=== PATIENT | female | born 1955 | race Caucasian/White ===

== ENCOUNTER → 2017-12-02 12:09 | Outpatient (CLI) | payer MEDICARE, SELFPAY ==
[2017-12-02 12:38] LABS: Abs Immature Grans 0.01 k/cumm (0.0-0.09); Absolute Basophil Count 0.03 k/cumm (0.0-0.2); Absolute Eosinophil Count 0.17 k/cumm (0.0-0.7); Absolute Lymphocyte Count 1.95 k/cumm (1.2-3.4); Absolute Monocyte Count 0.43 k/cumm (0.11-0.7); Absolute Neutrophil Count 4.89 k/cumm (1.2-6.7); Basophils % 0.4; Eosinophils % 2.3; HCT 42.9 % (36.0-46.0); HGB 14.4 g/dL (12.0-15.5); Immature Grans % 0.1; Lymphocytes % 26.1; Mean Corp. HGB Concentration 33.6 g/dL (32.0-36.0); Mean Corpuscular Hemoglobin 32.1 pg (27.0-33.0); Mean Corpuscular Volume 95.5 fL (80-95); Monocytes % 5.7; Neutrophils % 65.4; Platelet Count 232 x1000/uL (130-400); RBC 4.49 m/cumm (4.00-5.20); RBC Distribution Width 12.5 % (11.7-14.6); White Blood Cell Count 7.48 k/cumm (4.4-10.8)
[2017-12-02 12:51] LABS: Hemoglobin A1C 5.4 % (4.5-6.2)
[2017-12-02 13:27] LABS: ALT 28 U/L (12-78); AST 15 U/L (15-37); Albumin 3.9 g/dL (3.4-5.0); Alkaline Phosphatase 120 U/L (46-116); Anion Gap 10.5 mmol/L (3-11); BUN 23 mg/dL (7-18); Bilirubin, Total 0.3 mg/dL (0.2-1.0); CO2 26.5 mmol/L (21.0-32.0); CREATININE 0.92 mg/dL (0.55-1.02); Calcium 9.4 mg/dL (8.5-10.1); Chloride 106 mmol/L (98-107); Glucose 92 mg/dL (70-100); Potassium 4.4 mmol/L (3.5-5.1); Sodium 143 mmol/L (136-145); TSH 2.42 uIU/mL (0.358-3.74); Total Protein 6.7 g/dL (6.4-8.2)
[2017-12-05 11:22] LABS: Lyme Ab w Rflx to Lyme Confirm Negative
== END ==
PROVIDERS: PCP Family Medicine; Visit Provider Nurse Practitioner Psychiatric/Mental Health
DX: F25.0 Schizoaffective disorder, bipolar type (principal); Z79.899 Other long term (current) drug therapy
CPT/HCPCS: 36415; 80053; 83036; 84443; 85025; 86618

== ENCOUNTER → 2017-12-05 12:23 | Outpatient (REF) | payer MEDICARE, SELFPAY ==
[2017-12-06 11:13] LABS: Campylobacter PCR SEE COMMENTS; Salmonella PCR SEE COMMENTS; Shiga Toxin PCR SEE COMMENTS; Shigella/Enteroinvasive Ecoli SEE COMMENTS
== END ==
LOC: LBN 12:23
PROVIDERS: PCP Family Medicine; Visit Provider Nurse Practitioner Psychiatric/Mental Health
DX: R19.5 Other fecal abnormalities (principal)
CPT/HCPCS: 87505

== ENCOUNTER 2017-12-30 11:48 | Outpatient (CLI) | payer MEDICARE, SELFPAY ==
[2017-12-30 12:23] LABS: Abs Immature Grans 0.01 k/cumm (0.0-0.09); Absolute Basophil Count 0.04 k/cumm (0.0-0.2); Absolute Eosinophil Count 0.26 k/cumm (0.0-0.7); Absolute Lymphocyte Count 1.84 k/cumm (1.2-3.4); Absolute Monocyte Count 0.63 k/cumm (0.11-0.7); Absolute Neutrophil Count 5.35 k/cumm (1.2-6.7); Basophils % 0.5; Eosinophils % 3.2; HCT 42.2 % (36.0-46.0); HGB 13.8 g/dL (12.0-15.5); Immature Grans % 0.1; Lymphocytes % 22.6; Mean Corp. HGB Concentration 32.7 g/dL (32.0-36.0); Mean Corpuscular Hemoglobin 31.5 pg (27.0-33.0); Mean Corpuscular Volume 96.3 fL (80-95); Mean Platelet Volume 10.1 fL (8.0-11.0); Monocytes % 7.7; Neutrophils % 65.9; Platelet Count 226 x1000/uL (130-400); RBC 4.38 m/cumm (4.00-5.20); White Blood Cell Count 8.13 k/cumm (4.4-10.8)
== END 2017-12-30 12:08 ==
PROVIDERS: PCP Family Medicine; Visit Provider Nurse Practitioner Psychiatric/Mental Health
DX: F20.9 Schizophrenia, unspecified (principal); Z79.899 Other long term (current) drug therapy
CPT/HCPCS: 36415; 85025

== ENCOUNTER 2018-01-27 11:30 | Outpatient (CLI) | payer MEDICARE, SELFPAY ==
[2018-01-27 11:48] LABS: Abs Immature Grans 0.02 k/cumm (0.0-0.09); Absolute Basophil Count 0.04 k/cumm (0.0-0.2); Absolute Eosinophil Count 0.28 k/cumm (0.0-0.7); Absolute Lymphocyte Count 2.81 k/cumm (1.2-3.4); Absolute Monocyte Count 0.74 k/cumm (0.11-0.7); Absolute Neutrophil Count 6.11 k/cumm (1.2-6.7); Basophils % 0.4; Eosinophils % 2.8; HGB 14.3 g/dL (12.0-15.5); Immature Grans % 0.2; Lymphocytes % 28.1; Mean Corp. HGB Concentration 33.3 g/dL (32.0-36.0); Mean Corpuscular Hemoglobin 32.3 pg (27.0-33.0); Mean Corpuscular Volume 97.1 fL (80-95); Mean Platelet Volume 10.1 fL (8.0-11.0); Monocytes % 7.4; Neutrophils % 61.1; Platelet Count 227 x1000/uL (130-400); RBC 4.43 m/cumm (4.00-5.20)
== END 2018-01-27 11:50 ==
PROVIDERS: PCP Family Medicine; Referring Provider Nurse Practitioner Psychiatric/Mental Health; Visit Provider Family Medicine
DX: F20.9 Schizophrenia, unspecified (principal); Z79.899 Other long term (current) drug therapy
CPT/HCPCS: 36415; 85025

== ENCOUNTER 2018-02-22 00:49 | Outpatient (CLI) | payer MEDICARE, SELFPAY ==
--- NOTE | 2018-02-22 13:00 | DI.MAMMO_ITS ---
SYMPTOMS/DIAGNOSIS: SCREENING, Z12.31 MAMMOGRAMS: Mammograms were interpreted according to the usual protocol including computer analysis with CAD system, tomosynthesis and C view imaging. The breast tissue is of moderate radiodensity. When compared with previous images, there is a question regarding interval development of one or possibly two very small nodules in the right breast. Further assessment with mediolateral and craniocaudad compression spot films is suggested. SUMMARY: Category 0. Breast density category B. [facility] ASSESSMENT OF FINDINGS: Incomplete: Needs additional imaging evaluation. Category 0. Patient will receive a letter notifying them of these results. BI-RADS category B. There are scattered areas of fibroglandular density.
== END 2018-02-22 01:09 ==
PROVIDERS: PCP Family Medicine; Visit Provider Family Medicine
DX: Z12.31 Encounter for screening mammogram for malignant neoplasm of breast (principal); R92.8 Other abnormal and inconclusive findings on diagnostic imaging of breast
CPT/HCPCS: 77063; 77067

== ENCOUNTER 2018-02-24 11:46 | Outpatient (CLI) | payer MEDICARE, SELFPAY ==
[2018-02-24 12:42] LABS: Abs Immature Grans 0.01 k/cumm (0.0-0.09); Absolute Basophil Count 0.04 k/cumm (0.0-0.2); Absolute Eosinophil Count 0.17 k/cumm (0.0-0.7); Absolute Lymphocyte Count 1.74 k/cumm (1.2-3.4); Absolute Monocyte Count 0.39 k/cumm (0.11-0.7); Absolute Neutrophil Count 5.57 k/cumm (1.2-6.7); Basophils % 0.5; Eosinophils % 2.1; HCT 41.3 % (36.0-46.0); HGB 13.9 g/dL (12.0-15.5); Immature Grans % 0.1; Mean Corp. HGB Concentration 33.7 g/dL (32.0-36.0); Mean Corpuscular Hemoglobin 32.5 pg (27.0-33.0); Mean Corpuscular Volume 96.5 fL (80-95); Mean Platelet Volume 10.5 fL (8.0-11.0); Monocytes % 4.9; Neutrophils % 70.4; Platelet Count 228 x1000/uL (130-400); RBC 4.28 m/cumm (4.00-5.20); White Blood Cell Count 7.92 k/cumm (4.4-10.8)
[2018-02-27 17:06] LABS: Tissue Transglutaminase Ab IgA <1.2 U/mL; Tissue Transglutaminase Ab IgG 1.3 U/mL
== END 2018-02-24 12:06 ==
PROVIDERS: PCP Family Medicine; Visit Provider Nurse Practitioner Psychiatric/Mental Health
DX: R19.7 Diarrhea, unspecified (principal); F20.9 Schizophrenia, unspecified; Z79.899 Other long term (current) drug therapy
CPT/HCPCS: 36415; 83516; 85025

== ENCOUNTER 2018-03-01 01:12 | Outpatient (CLI) | payer MEDICARE, SELFPAY ==
--- NOTE | 2018-03-01 13:49 | DI.COMBO_ITS ---
SYMPTOM/DIAGNOSIS: F/U MAMMO, ? NODULE RT BREAST RIGHT BREAST ADDITIONAL VIEWS AND RIGHT BREAST ULTRASOUND: Additional images are interpreted according to the usual protocol including tomosynthesis and 2D imaging. Additional views of the right breast fail to show a persistent discrete mass. Right breast ultrasound was performed. No suspicious cystic or solid masses are seen sonographically. IMPRESSION: Breast density, Category B. No evidence for malignancy. Yearly mammography is recommended. Category 1. The findings were discussed with the patient on the date of the examination by Dr. Moore. [facility] ASSESSMENT OF FINDINGS: Negative. Category 1. Patient will receive a letter notifying them of these results. BI-RADS category B. There are scattered areas of fibroglandular density.
== END 2018-03-01 01:32 ==
PROVIDERS: PCP Family Medicine; Visit Provider Family Medicine
DX: Z12.31 Encounter for screening mammogram for malignant neoplasm of breast (principal); R92.8 Other abnormal and inconclusive findings on diagnostic imaging of breast
CPT/HCPCS: 76642; 77063; 77067

== ENCOUNTER 2018-03-24 11:30 | Outpatient (CLI) | payer MEDICARE, SELFPAY ==
[2018-03-24 12:18] LABS: Abs Immature Grans 0.01 k/cumm (0.0-0.09); Absolute Basophil Count 0.03 k/cumm (0.0-0.2); Absolute Eosinophil Count 0.24 k/cumm (0.0-0.7); Absolute Lymphocyte Count 1.96 k/cumm (1.2-3.4); Absolute Monocyte Count 0.65 k/cumm (0.11-0.7); Absolute Neutrophil Count 6.15 k/cumm (1.2-6.7); Basophils % 0.3; Eosinophils % 2.7; HCT 44.1 % (36.0-46.0); HGB 14.7 g/dL (12.0-15.5); Immature Grans % 0.1; Lymphocytes % 21.7; Mean Corp. HGB Concentration 33.3 g/dL (32.0-36.0); Mean Corpuscular Hemoglobin 32.2 pg (27.0-33.0); Mean Corpuscular Volume 96.5 fL (80-95); Mean Platelet Volume 10.4 fL (8.0-11.0); Monocytes % 7.2; Platelet Count 251 x1000/uL (130-400); RBC 4.57 m/cumm (4.00-5.20); RBC Distribution Width 12.9 % (11.7-14.6); White Blood Cell Count 9.04 k/cumm (4.4-10.8)
== END 2018-03-24 11:50 ==
PROVIDERS: PCP Family Medicine; Visit Provider Nurse Practitioner Psychiatric/Mental Health
DX: F20.9 Schizophrenia, unspecified (principal); Z79.899 Other long term (current) drug therapy
CPT/HCPCS: 36415; 85025

== ENCOUNTER 2018-04-21 11:39 | Outpatient (CLI) | payer MEDICARE, SELFPAY ==
[2018-04-21 12:37] LABS: Abs Immature Grans 0.02 k/cumm (0.0-0.09); Absolute Basophil Count 0.05 k/cumm (0.0-0.2); Absolute Eosinophil Count 0.21 k/cumm (0.0-0.7); Absolute Lymphocyte Count 1.82 k/cumm (1.2-3.4); Absolute Monocyte Count 0.53 k/cumm (0.11-0.7); Absolute Neutrophil Count 6.73 k/cumm (1.2-6.7); Basophils % 0.5; Eosinophils % 2.2; HCT 40.8 % (36.0-46.0); HGB 13.7 g/dL (12.0-15.5); Immature Grans % 0.2; Lymphocytes % 19.4; Mean Corp. HGB Concentration 33.6 g/dL (32.0-36.0); Mean Corpuscular Hemoglobin 32.5 pg (27.0-33.0); Mean Corpuscular Volume 96.9 fL (80-95); Mean Platelet Volume 10.6 fL (8.0-11.0); Monocytes % 5.7; Platelet Count 205 x1000/uL (130-400); RBC 4.21 m/cumm (4.00-5.20); RBC Distribution Width 13.3 % (11.7-14.6); White Blood Cell Count 9.36 k/cumm (4.4-10.8)
== END 2018-04-21 11:59 ==
PROVIDERS: PCP Family Medicine; Visit Provider Nurse Practitioner Psychiatric/Mental Health
DX: F20.9 Schizophrenia, unspecified (principal); Z79.899 Other long term (current) drug therapy
CPT/HCPCS: 36415; 85025

== ENCOUNTER 2018-05-19 11:54 | Outpatient (CLI) | payer MEDICARE, SELFPAY ==
[2018-05-19 12:41] LABS: Abs Immature Grans 0.02 k/cumm (0.0-0.09); Absolute Basophil Count 0.04 k/cumm (0.0-0.2); Absolute Lymphocyte Count 2.41 k/cumm (1.2-3.4); Absolute Monocyte Count 0.64 k/cumm (0.11-0.7); Basophils % 0.4; HCT 42.6 % (36.0-46.0); HGB 14.5 g/dL (12.0-15.5); Immature Grans % 0.2; Lymphocytes % 23.8; Mean Corpuscular Hemoglobin 32.6 pg (27.0-33.0); Mean Corpuscular Volume 95.7 fL (80-95); Mean Platelet Volume 10.5 fL (8.0-11.0); Monocytes % 6.3; Neutrophils % 67.3; Platelet Count 235 x1000/uL (130-400); RBC 4.45 m/cumm (4.00-5.20); RBC Distribution Width 12.8 % (11.7-14.6); White Blood Cell Count 10.11 k/cumm (4.4-10.8)
== END 2018-05-19 12:14 ==
PROVIDERS: PCP Family Medicine; Visit Provider Nurse Practitioner Psychiatric/Mental Health
DX: F20.9 Schizophrenia, unspecified (principal); Z79.899 Other long term (current) drug therapy
CPT/HCPCS: 36415; 85025

== ENCOUNTER 2018-05-19 11:58 | Outpatient (REF) | payer MEDICARE, SELFPAY ==
[2018-05-20 11:18] LABS: Campylobacter PCR SEE COMMENTS; Salmonella PCR SEE COMMENTS; Shiga Toxin PCR SEE COMMENTS; Shigella/Enteroinvasive Ecoli SEE COMMENTS
== END 2018-05-19 12:18 ==
LOC: LBN 11:58
PROVIDERS: PCP Family Medicine; Visit Provider Family Medicine
DX: R97.0 Elevated carcinoembryonic antigen [CEA] (principal)
CPT/HCPCS: 87505

== ENCOUNTER 2018-06-16 11:44 | Outpatient (CLI) | payer MEDICARE, SELFPAY ==
[2018-06-16 12:13] LABS: Abs Immature Grans 0.02 k/cumm (0.0-0.09); Absolute Basophil Count 0.04 k/cumm (0.0-0.2); Absolute Eosinophil Count 0.23 k/cumm (0.0-0.7); Absolute Lymphocyte Count 2.15 k/cumm (1.2-3.4); Absolute Monocyte Count 0.66 k/cumm (0.11-0.7); Absolute Neutrophil Count 6.22 k/cumm (1.2-6.7); Basophils % 0.4; Eosinophils % 2.5; HCT 41.8 % (36.0-46.0); HGB 14.1 g/dL (12.0-15.5); Immature Grans % 0.2; Lymphocytes % 23.1; Mean Corp. HGB Concentration 33.7 g/dL (32.0-36.0); Mean Corpuscular Hemoglobin 32.2 pg (27.0-33.0); Mean Corpuscular Volume 95.4 fL (80-95); Mean Platelet Volume 10.3 fL (8.0-11.0); Monocytes % 7.1; Neutrophils % 66.7; Platelet Count 254 x1000/uL (130-400); RBC 4.38 m/cumm (4.00-5.20); RBC Distribution Width 12.5 % (11.7-14.6); White Blood Cell Count 9.32 k/cumm (4.4-10.8)
[2018-06-16 13:46] LABS: ALT 24 U/L (12-78); AST 17 U/L (15-37); Albumin 3.6 g/dL (3.4-5.0); Alkaline Phosphatase 121 U/L (46-116); Anion Gap 10.3 mmol/L (3-11); BUN 25 mg/dL (7-18); Bilirubin, Total 0.4 mg/dL (0.2-1.0); CO2 26.7 mmol/L (21.0-32.0); CREATININE 0.88 mg/dL (0.55-1.02); Calcium 10.1 mg/dL (8.5-10.1); Chloride 107 mmol/L (98-107); Glucose 98 mg/dL (70-100); Potassium 4.3 mmol/L (3.5-5.1); Sodium 144 mmol/L (136-145); Total Protein 6.5 g/dL (6.4-8.2)
[2018-06-20 01:24] LABS: Clozapine 165 ng/mL (>350); Clozapine+Norclozapine Total 284 ng/mL (>450); Norclozapine 119 ng/mL
== END 2018-06-16 12:04 ==
PROVIDERS: PCP Family Medicine; Visit Provider Nurse Practitioner Psychiatric/Mental Health
DX: F25.0 Schizoaffective disorder, bipolar type (principal); Z79.899 Other long term (current) drug therapy; Z51.81 Encounter for therapeutic drug level monitoring
CPT/HCPCS: 36415; 80053; 80159; 84443; 85025

== ENCOUNTER 2018-07-18 12:12 | Outpatient (CLI) | payer MEDICARE, SELFPAY ==
[2018-07-18 12:37] LABS: Abs Immature Grans 0.01 k/cumm (0.0-0.09); Absolute Basophil Count 0.04 k/cumm (0.0-0.2); Absolute Eosinophil Count 0.29 k/cumm (0.0-0.7); Absolute Monocyte Count 0.75 k/cumm (0.11-0.7); Absolute Neutrophil Count 5.54 k/cumm (1.2-6.7); Basophils % 0.5; Eosinophils % 3.3; HCT 42.7 % (36.0-46.0); HGB 14.2 g/dL (12.0-15.5); Immature Grans % 0.1; Lymphocytes % 24.9; Mean Corp. HGB Concentration 33.3 g/dL (32.0-36.0); Mean Corpuscular Volume 96.2 fL (80-95); Mean Platelet Volume 10.1 fL (8.0-11.0); Monocytes % 8.5; Neutrophils % 62.7; Platelet Count 253 x1000/uL (130-400); RBC 4.44 m/cumm (4.00-5.20); RBC Distribution Width 12.8 % (11.7-14.6); White Blood Cell Count 8.83 k/cumm (4.4-10.8)
== END 2018-07-18 12:32 ==
PROVIDERS: PCP Family Medicine; Visit Provider Nurse Practitioner Psychiatric/Mental Health
DX: F20.9 Schizophrenia, unspecified (principal); Z79.899 Other long term (current) drug therapy
CPT/HCPCS: 36415; 85025

== ENCOUNTER 2018-08-18 11:53 | Outpatient (CLI) | payer MEDICARE, SELFPAY ==
[2018-08-18 12:14] LABS: Abs Immature Grans 0.02 k/cumm (0.0-0.09); Absolute Basophil Count 0.03 k/cumm (0.0-0.2); Absolute Eosinophil Count 0.16 k/cumm (0.0-0.7); Absolute Lymphocyte Count 1.86 k/cumm (1.2-3.4); Absolute Monocyte Count 0.63 k/cumm (0.11-0.7); Absolute Neutrophil Count 6.58 k/cumm (1.2-6.7); Basophils % 0.3; Eosinophils % 1.7; HCT 41.3 % (36.0-46.0); HGB 13.9 g/dL (12.0-15.5); Immature Grans % 0.2; Mean Corp. HGB Concentration 33.7 g/dL (32.0-36.0); Mean Corpuscular Hemoglobin 31.8 pg (27.0-33.0); Mean Corpuscular Volume 94.5 fL (80-95); Mean Platelet Volume 10.4 fL (8.0-11.0); Monocytes % 6.8; Platelet Count 238 x1000/uL (130-400); RBC 4.37 m/cumm (4.00-5.20); RBC Distribution Width 12.8 % (11.7-14.6); White Blood Cell Count 9.28 k/cumm (4.4-10.8)
[2018-08-18 14:20] LABS: Cholesterol 197 mg/dL (50-200); HDL Cholesterol 52 mg/dL (40-60); LDL CHOLESTEROL 122 mg/dL (<100); Triglyceride 75 mg/dL (30-150)
== END 2018-08-18 12:13 ==
PROVIDERS: PCP Family Medicine; Visit Provider Nurse Practitioner Psychiatric/Mental Health
DX: E78.5 Hyperlipidemia, unspecified (principal); F20.9 Schizophrenia, unspecified; Z79.899 Other long term (current) drug therapy
CPT/HCPCS: 36415; 80061; 83721; 85025

== ENCOUNTER 2018-09-15 11:57 | Outpatient (CLI) | payer MEDICARE, SELFPAY ==
[2018-09-15 12:37] LABS: Abs Immature Grans 0.01 k/cumm (0.0-0.09); Absolute Basophil Count 0.06 k/cumm (0.0-0.2); Absolute Eosinophil Count 0.29 k/cumm (0.0-0.7); Absolute Lymphocyte Count 1.95 k/cumm (1.2-3.4); Absolute Monocyte Count 0.75 k/cumm (0.11-0.7); Absolute Neutrophil Count 5.49 k/cumm (1.2-6.7); Basophils % 0.7; Eosinophils % 3.4; HCT 42.4 % (36.0-46.0); HGB 14.3 g/dL (12.0-15.5); Immature Grans % 0.1; Lymphocytes % 22.8; Mean Corp. HGB Concentration 33.7 g/dL (32.0-36.0); Mean Corpuscular Volume 94.9 fL (80-95); Mean Platelet Volume 10.2 fL (8.0-11.0); Monocytes % 8.8; Neutrophils % 64.2; Platelet Count 263 x1000/uL (130-400); RBC 4.47 m/cumm (4.00-5.20); RBC Distribution Width 12.9 % (11.7-14.6); White Blood Cell Count 8.55 k/cumm (4.4-10.8)
== END 2018-09-15 12:17 ==
PROVIDERS: PCP Family Medicine; Visit Provider Nurse Practitioner Psychiatric/Mental Health
DX: F20.9 Schizophrenia, unspecified (principal); Z79.899 Other long term (current) drug therapy
CPT/HCPCS: 36415; 85025

== ENCOUNTER 2018-10-13 11:48 | Outpatient (CLI) | payer MEDICARE, SELFPAY ==
[2018-10-13 12:31] LABS: Abs Immature Grans 0.01 k/cumm (0.0-0.09); Absolute Basophil Count 0.03 k/cumm (0.0-0.2); Absolute Lymphocyte Count 1.96 k/cumm (1.2-3.4); Absolute Monocyte Count 0.49 k/cumm (0.11-0.7); Absolute Neutrophil Count 4.31 k/cumm (1.2-6.7); Basophils % 0.4; Eosinophils % 4.2; HCT 42.9 % (36.0-46.0); HGB 14.1 g/dL (12.0-15.5); Immature Grans % 0.1; Lymphocytes % 27.6; Mean Corp. HGB Concentration 32.9 g/dL (32.0-36.0); Mean Corpuscular Hemoglobin 31.4 pg (27.0-33.0); Mean Corpuscular Volume 95.5 fL (80-95); Mean Platelet Volume 10.4 fL (8.0-11.0); Monocytes % 6.9; Neutrophils % 60.8; Platelet Count 250 x1000/uL (130-400); RBC 4.49 m/cumm (4.00-5.20)
== END 2018-10-13 12:08 ==
PROVIDERS: PCP Family Medicine; Visit Provider Nurse Practitioner Psychiatric/Mental Health
DX: F20.9 Schizophrenia, unspecified (principal); Z79.899 Other long term (current) drug therapy
CPT/HCPCS: 36415; 85025

== ENCOUNTER 2018-11-10 15:20 | Outpatient (CLI) | payer MEDICARE, SELFPAY ==
[2018-11-10 15:54] LABS: Abs Immature Grans 0.02 k/cumm (0.0-0.09); Absolute Basophil Count 0.05 k/cumm (0.0-0.2); Absolute Eosinophil Count 0.16 k/cumm (0.0-0.7); Absolute Lymphocyte Count 2.01 k/cumm (1.2-3.4); Absolute Monocyte Count 0.63 k/cumm (0.11-0.7); Absolute Neutrophil Count 7.24 k/cumm (1.2-6.7); Basophils % 0.5; Eosinophils % 1.6; HCT 42.8 % (36.0-46.0); HGB 14.8 g/dL (12.0-15.5); Immature Grans % 0.2; Lymphocytes % 19.9; Mean Corp. HGB Concentration 34.6 g/dL (32.0-36.0); Mean Corpuscular Hemoglobin 32.9 pg (27.0-33.0); Mean Corpuscular Volume 95.1 fL (80-95); Mean Platelet Volume 10.1 fL (8.0-11.0); Monocytes % 6.2; Neutrophils % 71.6; Platelet Count 264 x1000/uL (130-400); RBC Distribution Width 12.9 % (11.7-14.6); White Blood Cell Count 10.11 k/cumm (4.4-10.8)
== END 2018-11-10 15:40 ==
LOC: LOS 15:26 → LBO 15:33
PROVIDERS: PCP Family Medicine; Visit Provider Nurse Practitioner Psychiatric/Mental Health
DX: F20.9 Schizophrenia, unspecified (principal); Z79.899 Other long term (current) drug therapy
CPT/HCPCS: 36415; 85025

== ENCOUNTER 2018-12-08 11:32 | Outpatient (CLI) | payer MEDICARE, SELFPAY ==
[2018-12-08 11:54] LABS: Abs Immature Grans 0.01 k/cumm (0.0-0.09); Absolute Basophil Count 0.05 k/cumm (0.0-0.2); Absolute Eosinophil Count 0.25 k/cumm (0.0-0.7); Absolute Lymphocyte Count 1.89 k/cumm (1.2-3.4); Absolute Monocyte Count 0.65 k/cumm (0.11-0.7); Absolute Neutrophil Count 5.46 k/cumm (1.2-6.7); Basophils % 0.6; HGB 14.3 g/dL (12.0-15.5); Immature Grans % 0.1; Lymphocytes % 22.7; Mean Corp. HGB Concentration 33.3 g/dL (32.0-36.0); Mean Corpuscular Hemoglobin 31.4 pg (27.0-33.0); Mean Corpuscular Volume 94.5 fL (80-95); Mean Platelet Volume 10.1 fL (8.0-11.0); Monocytes % 7.8; Neutrophils % 65.8; Platelet Count 266 x1000/uL (130-400); RBC 4.55 m/cumm (4.00-5.20); RBC Distribution Width 12.7 % (11.7-14.6); White Blood Cell Count 8.31 k/cumm (4.4-10.8)
== END 2018-12-08 11:52 ==
PROVIDERS: PCP Family Medicine; Visit Provider Nurse Practitioner Psychiatric/Mental Health
DX: F20.9 Schizophrenia, unspecified (principal); Z79.899 Other long term (current) drug therapy
CPT/HCPCS: 36415; 85025

== ENCOUNTER 2019-01-05 12:01 | Outpatient (CLI) | payer MEDICARE, SELFPAY ==
[2019-01-05 13:06] LABS: Abs Immature Grans 0.01 k/cumm (0.0-0.09); Absolute Basophil Count 0.04 k/cumm (0.0-0.2); Absolute Eosinophil Count 0.13 k/cumm (0.0-0.7); Absolute Lymphocyte Count 2.09 k/cumm (1.2-3.4); Absolute Monocyte Count 0.45 k/cumm (0.11-0.7); Absolute Neutrophil Count 5.45 k/cumm (1.2-6.7); Basophils % 0.5; Eosinophils % 1.6; HCT 42.9 % (36.0-46.0); HGB 14.3 g/dL (12.0-15.5); Immature Grans % 0.1; Lymphocytes % 25.6; Mean Corp. HGB Concentration 33.3 g/dL (32.0-36.0); Mean Platelet Volume 10.2 fL (8.0-11.0); Monocytes % 5.5; Neutrophils % 66.7; Platelet Count 246 x1000/uL (130-400); RBC 4.47 m/cumm (4.00-5.20); RBC Distribution Width 12.8 % (11.7-14.6); White Blood Cell Count 8.17 k/cumm (4.4-10.8)
== END 2019-01-05 12:21 ==
PROVIDERS: PCP Family Medicine; Visit Provider Nurse Practitioner Psychiatric/Mental Health
DX: F20.9 Schizophrenia, unspecified (principal); Z79.899 Other long term (current) drug therapy
CPT/HCPCS: 36415; 85025

== ENCOUNTER 2019-02-02 11:07 | Outpatient (CLI) | payer MEDICARE, SELFPAY ==
[2019-02-02 11:43] LABS: Abs Immature Grans 0.02 k/cumm (0.0-0.09); Absolute Basophil Count 0.05 k/cumm (0.0-0.2); Absolute Eosinophil Count 0.19 k/cumm (0.0-0.7); Absolute Lymphocyte Count 1.81 k/cumm (1.2-3.4); Absolute Monocyte Count 0.48 k/cumm (0.11-0.7); Absolute Neutrophil Count 7.37 k/cumm (1.2-6.7); Basophils % 0.5; Eosinophils % 1.9; HCT 42.7 % (36.0-46.0); HGB 14.2 g/dL (12.0-15.5); Immature Grans % 0.2; Lymphocytes % 18.2; Mean Corp. HGB Concentration 33.3 g/dL (32.0-36.0); Mean Corpuscular Hemoglobin 31.6 pg (27.0-33.0); Mean Corpuscular Volume 94.9 fL (80-95); Mean Platelet Volume 10.1 fL (8.0-11.0); Monocytes % 4.8; Neutrophils % 74.4; Platelet Count 259 x1000/uL (130-400); RBC Distribution Width 12.7 % (11.7-14.6); White Blood Cell Count 9.92 k/cumm (4.4-10.8)
== END 2019-02-02 11:27 ==
PROVIDERS: PCP Family Medicine; Visit Provider Nurse Practitioner Psychiatric/Mental Health
DX: F20.9 Schizophrenia, unspecified (principal); Z79.899 Other long term (current) drug therapy
CPT/HCPCS: 36415; 85025

== ENCOUNTER 2019-03-02 11:53 | Outpatient (CLI) | payer MEDICARE, SELFPAY ==
[2019-03-02 13:17] LABS: Abs Immature Grans 0.02 k/cumm (0.0-0.09); Absolute Basophil Count 0.03 k/cumm (0.0-0.2); Absolute Eosinophil Count 0.13 k/cumm (0.0-0.7); Absolute Lymphocyte Count 1.32 k/cumm (1.2-3.4); Basophils % 0.3; Eosinophils % 1.3; HCT 42.9 % (36.0-46.0); HGB 14.5 g/dL (12.0-15.5); Immature Grans % 0.2; Lymphocytes % 12.8; Mean Corp. HGB Concentration 33.8 g/dL (32.0-36.0); Mean Corpuscular Hemoglobin 32.2 pg (27.0-33.0); Mean Corpuscular Volume 95.1 fL (80-95); Mean Platelet Volume 10.2 fL (8.0-11.0); Monocytes % 9.7; Neutrophils % 75.7; Platelet Count 309 x1000/uL (130-400); RBC 4.51 m/cumm (4.00-5.20)
== END 2019-03-02 12:13 ==
PROVIDERS: PCP Family Medicine; Visit Provider Nurse Practitioner Psychiatric/Mental Health
DX: F20.9 Schizophrenia, unspecified (principal); Z79.899 Other long term (current) drug therapy
CPT/HCPCS: 36415; 85025

== ENCOUNTER 2019-03-15 02:18 | Outpatient (CLI) | payer MEDICARE, SELFPAY ==
--- NOTE | 2019-03-15 13:10 | DI.MAMMO_ITS ---
EXAM: MG MAMMO SCREENING CLINICAL HISTORY: screening Z12.39 TECHNIQUE: Bilateral full field digital CC and MLO mammographic images were obtained with 3D tomosyn thesis and utilizing computer aided detection (CAD). COMPARISON: Available for comparison. FINDINGS: Masses/Architectural Distortion: None seen. Microcalcifications: No suspicious pleomorphic-type are seen. Skin Thickening/Nipple Retraction: None. IMPRESSION: 1. No significant interval change with no specific features of malignancy noted. 2. Unless there is more urgent need, screening mammography is recommended, as per [employer] guidelines. ACR BI-RAD Category- 1 Negative Breast Density - Category B - Scattered areas of fibroglandular density A negative radiographic report should not delay biopsy if a dominant or clinically suspicious mass is present. Up to ten percent of cancers are not identified on mammography. A negative report may reinforce clinical impression. Adenosis and dense breasts may obscure an underlying neoplasm. False positive reports average 6 to 10%. Patient will receive a letter notifying them of these results.
== END 2019-03-15 02:38 ==
PROVIDERS: PCP Family Medicine; Visit Provider Family Medicine
DX: Z12.31 Encounter for screening mammogram for malignant neoplasm of breast (principal)
CPT/HCPCS: 77063; 77067

== ENCOUNTER 2019-03-30 12:04 | Outpatient (CLI) | payer MEDICARE, SELFPAY ==
[2019-03-30 12:38] LABS: Abs Immature Grans 0.01 k/cumm (0.0-0.09); Absolute Basophil Count 0.03 k/cumm (0.0-0.2); Absolute Eosinophil Count 0.17 k/cumm (0.0-0.7); Absolute Lymphocyte Count 1.72 k/cumm (1.2-3.4); Absolute Monocyte Count 1.04 k/cumm (0.11-0.7); Absolute Neutrophil Count 7.57 k/cumm (1.2-6.7); Basophils % 0.3; Eosinophils % 1.6; Immature Grans % 0.1; Lymphocytes % 16.3; Mean Corp. HGB Concentration 32.6 g/dL (32.0-36.0); Mean Corpuscular Hemoglobin 31.5 pg (27.0-33.0); Mean Corpuscular Volume 96.6 fL (80-95); Mean Platelet Volume 9.7 fL (8.0-11.0); Monocytes % 9.9; Neutrophils % 71.8; Platelet Count 247 x1000/uL (130-400); RBC 4.45 m/cumm (4.00-5.20); RBC Distribution Width 12.6 % (11.7-14.6); White Blood Cell Count 10.54 k/cumm (4.4-10.8)
== END 2019-03-30 12:24 ==
PROVIDERS: PCP Family Medicine; Visit Provider Nurse Practitioner Psychiatric/Mental Health
DX: F20.9 Schizophrenia, unspecified (principal); Z79.899 Other long term (current) drug therapy
CPT/HCPCS: 36415; 85025

== ENCOUNTER 2019-04-26 11:51 | Outpatient (CLI) | payer MEDICARE, SELFPAY ==
[2019-04-26 12:10] LABS: Abs Immature Grans 0.01 k/cumm (0.0-0.09); Absolute Basophil Count 0.03 k/cumm (0.0-0.2); Absolute Eosinophil Count 0.33 k/cumm (0.0-0.7); Absolute Lymphocyte Count 2.17 k/cumm (1.2-3.4); Absolute Monocyte Count 0.65 k/cumm (0.11-0.7); Absolute Neutrophil Count 5.72 k/cumm (1.2-6.7); Basophils % 0.3; Eosinophils % 3.7; HCT 40.5 % (36.0-46.0); HGB 13.4 g/dL (12.0-15.5); Immature Grans % 0.1; Lymphocytes % 24.4; Mean Corp. HGB Concentration 33.1 g/dL (32.0-36.0); Mean Corpuscular Volume 96.7 fL (80-95); Mean Platelet Volume 9.7 fL (8.0-11.0); Monocytes % 7.3; Neutrophils % 64.2; Platelet Count 269 x1000/uL (130-400); RBC 4.19 m/cumm (4.00-5.20); RBC Distribution Width 13.1 % (11.7-14.6); White Blood Cell Count 8.91 k/cumm (4.4-10.8)
[2019-05-25 14:13] LABS: ALT 22 U/L (14-59); AST 15 U/L (15-37); Albumin 3.7 g/dL (3.4-5.0); Alkaline Phosphatase 114 U/L (46-116); Anion Gap 11.4 mmol/L (3-11); BUN 27 mg/dL (7-18); Bilirubin, Total 0.4 mg/dL (0.2-1.0); CO2 24.6 mmol/L (21.0-32.0); CREATININE 0.81 mg/dL (0.55-1.02); Calcium 9.9 mg/dL (8.5-10.1); Chloride 109 mmol/L (98-107); Glucose 88 mg/dL (74-106); Potassium 3.8 mmol/L (3.5-5.1); Sodium 145 mmol/L (136-145); Total Protein 6.4 g/dL (6.4-8.2)
== END 2019-04-26 12:11 ==
PROVIDERS: PCP Family Medicine; Visit Provider Nurse Practitioner Psychiatric/Mental Health
DX: F20.9 Schizophrenia, unspecified (principal); Z79.899 Other long term (current) drug therapy; R74.8 Abnormal levels of other serum enzymes
CPT/HCPCS: 36415; 85025

== ENCOUNTER 2019-05-25 12:02 | Outpatient (CLI) | payer MEDICARE, SELFPAY ==
[2019-05-25 12:47] LABS: Abs Immature Grans 0.01 k/cumm (0.0-0.09); Absolute Basophil Count 0.04 k/cumm (0.0-0.2); Absolute Eosinophil Count 0.13 k/cumm (0.0-0.7); Absolute Lymphocyte Count 2.25 k/cumm (1.2-3.4); Absolute Neutrophil Count 5.36 k/cumm (1.2-6.7); Basophils % 0.5; Eosinophils % 1.5; HCT 40.4 % (36.0-46.0); HGB 13.4 g/dL (12.0-15.5); Immature Grans % 0.1 %; Lymphocytes % 26.8; Mean Corp. HGB Concentration 33.2 g/dL (32.0-36.0); Mean Corpuscular Hemoglobin 31.8 pg (27.0-33.0); Monocytes % 7.2; Neutrophils % 63.9; Platelet Count 317 x1000/uL (130-400); RBC 4.21 m/cumm (4.00-5.20); RBC Distribution Width 13.2 % (11.7-14.6); White Blood Cell Count 8.39 k/cumm (4.4-10.8)
== END 2019-05-25 12:22 ==
PROVIDERS: Nurse Practitioner Psychiatric/Mental Health; PCP Family Medicine; Visit Provider Family Medicine
DX: F20.9 Schizophrenia, unspecified (principal); Z79.899 Other long term (current) drug therapy
CPT/HCPCS: 36415; 80053; 85025

== ENCOUNTER 2019-06-22 12:00 | Outpatient (CLI) | payer MEDICARE, SELFPAY ==
[2019-06-22 12:43] LABS: Abs Immature Grans 0.02 k/cumm (0.0-0.09); Absolute Basophil Count 0.03 k/cumm (0.0-0.2); Absolute Eosinophil Count 0.23 k/cumm (0.0-0.7); Absolute Lymphocyte Count 2.05 k/cumm (1.2-3.4); Absolute Monocyte Count 0.66 k/cumm (0.11-0.7); Absolute Neutrophil Count 6.47 k/cumm (1.2-6.7); Basophils % 0.3; Eosinophils % 2.4; HCT 40.9 % (36.0-46.0); HGB 13.8 g/dL (12.0-15.5); Immature Grans % 0.2 %; Lymphocytes % 21.7; Mean Corp. HGB Concentration 33.7 g/dL (32.0-36.0); Mean Corpuscular Hemoglobin 32.1 pg (27.0-33.0); Mean Corpuscular Volume 95.1 fL (80-95); Mean Platelet Volume 10.3 fL (8.0-11.0); Neutrophils % 68.4; Platelet Count 263 x1000/uL (130-400); RBC Distribution Width 12.7 % (11.7-14.6); White Blood Cell Count 9.46 k/cumm (4.4-10.8)
[2019-06-22 13:32] LABS: TSH (W/Ref FT4) 2.19 uIU/mL (0.36-3.74)
[2019-06-25 11:14] LABS: Campylobacter PCR Negative (Negative); Salmonella PCR Negative (Negative); Shiga Toxin PCR Negative (Negative); Shigella/Enteroinvasive Ecoli Negative (Negative)
== END 2019-06-22 12:20 ==
PROVIDERS: Nurse Practitioner Psychiatric/Mental Health; PCP Family Medicine; Visit Provider Family Medicine
DX: F20.9 Schizophrenia, unspecified (principal); Z79.899 Other long term (current) drug therapy; E03.9 Hypothyroidism, unspecified; R19.7 Diarrhea, unspecified
CPT/HCPCS: 36415; 87505; 84443; 85025

== ENCOUNTER 2019-07-20 02:16 | Outpatient (CLI) | payer MEDICARE, SELFPAY ==
[2019-07-20 12:27] LABS: Abs Immature Grans 0.02 k/cumm (0.0-0.09); Absolute Basophil Count 0.04 k/cumm (0.0-0.2); Absolute Lymphocyte Count 2.42 k/cumm (1.2-3.4); Absolute Monocyte Count 0.51 k/cumm (0.11-0.7); Absolute Neutrophil Count 6.86 k/cumm (1.2-6.7); Basophils % 0.4; HCT 41.8 % (36.0-46.0); Immature Grans % 0.2 %; Lymphocytes % 24.3; Mean Corp. HGB Concentration 33.5 g/dL (32.0-36.0); Mean Corpuscular Volume 95.7 fL (80-95); Mean Platelet Volume 10.1 fL (8.0-11.0); Monocytes % 5.1; Platelet Count 299 x1000/uL (130-400); RBC 4.37 m/cumm (4.00-5.20); RBC Distribution Width 12.9 % (11.7-14.6); White Blood Cell Count 9.95 k/cumm (4.4-10.8)
== END 2019-07-20 02:36 ==
PROVIDERS: PCP Family Medicine; Visit Provider Nurse Practitioner Psychiatric/Mental Health
DX: F20.9 Schizophrenia, unspecified (principal); Z79.899 Other long term (current) drug therapy
CPT/HCPCS: 36415; 85025

== ENCOUNTER 2019-09-14 04:02 | Outpatient (CLI) | payer MEDICARE, SELFPAY ==
[2019-09-14 13:38] LABS: Abs Immature Grans 0.02 k/cumm (0.0-0.09); Absolute Basophil Count 0.04 k/cumm (0.0-0.2); Absolute Eosinophil Count 0.24 k/cumm (0.0-0.7); Absolute Lymphocyte Count 2.05 k/cumm (1.2-3.4); Absolute Monocyte Count 0.57 k/cumm (0.11-0.7); Absolute Neutrophil Count 6.17 k/cumm (1.2-6.7); Basophils % 0.4; Eosinophils % 2.6; HCT 41.8 % (36.0-46.0); HGB 14.3 g/dL (12.0-15.5); Immature Grans % 0.2 %; Lymphocytes % 22.6; Mean Corp. HGB Concentration 34.2 g/dL (32.0-36.0); Mean Corpuscular Hemoglobin 32.6 pg (27.0-33.0); Mean Corpuscular Volume 95.2 fL (80-95); Mean Platelet Volume 10.2 fL (8.0-11.0); Monocytes % 6.3; Neutrophils % 67.9; Platelet Count 290 x1000/uL (130-400); RBC 4.39 m/cumm (4.00-5.20); RBC Distribution Width 12.4 % (11.7-14.6); White Blood Cell Count 9.09 k/cumm (4.4-10.8)
== END 2019-09-14 04:22 ==
PROVIDERS: PCP Family Medicine; Visit Provider Nurse Practitioner Psychiatric/Mental Health
DX: F20.9 Schizophrenia, unspecified (principal); Z79.899 Other long term (current) drug therapy
CPT/HCPCS: 36415; 85025

== ENCOUNTER 2019-10-12 03:44 | Outpatient (CLI) | payer MEDICARE, SELFPAY ==
[2019-10-12 13:33] LABS: Abs Immature Grans 0.02 k/cumm (0.0-0.09); Absolute Basophil Count 0.04 k/cumm (0.0-0.2); Absolute Eosinophil Count 0.22 k/cumm (0.0-0.7); Absolute Lymphocyte Count 2.16 k/cumm (1.2-3.4); Absolute Monocyte Count 0.55 k/cumm (0.11-0.7); Absolute Neutrophil Count 5.29 k/cumm (1.2-6.7); Basophils % 0.5; Eosinophils % 2.7; HCT 39.8 % (36.0-46.0); HGB 13.4 g/dL (12.0-15.5); Immature Grans % 0.2 %; Lymphocytes % 26.1; Mean Corp. HGB Concentration 33.7 g/dL (32.0-36.0); Mean Corpuscular Hemoglobin 31.8 pg (27.0-33.0); Mean Corpuscular Volume 94.5 fL (80-95); Monocytes % 6.6; Neutrophils % 63.9; Platelet Count 276 x1000/uL (130-400); RBC 4.21 m/cumm (4.00-5.20); RBC Distribution Width 12.3 % (11.7-14.6); White Blood Cell Count 8.28 k/cumm (4.4-10.8)
== END 2019-10-12 04:04 ==
PROVIDERS: Nurse Practitioner Family; PCP Family Medicine; Visit Provider Family Medicine
DX: F20.9 Schizophrenia, unspecified (principal); Z79.899 Other long term (current) drug therapy
CPT/HCPCS: 36415; 85025

== ENCOUNTER 2019-11-09 02:48 | Outpatient (CLI) | payer MEDICARE, SELFPAY ==
[2019-11-09 13:02] LABS: Abs Immature Grans 0.02 k/cumm (0.0-0.09); Absolute Basophil Count 0.05 k/cumm (0.0-0.2); Absolute Eosinophil Count 0.24 k/cumm (0.0-0.7); Absolute Lymphocyte Count 2.14 k/cumm (1.2-3.4); Absolute Monocyte Count 0.56 k/cumm (0.11-0.7); Basophils % 0.6; Eosinophils % 2.7; HCT 41.6 % (36.0-46.0); Immature Grans % 0.2 %; Mean Corp. HGB Concentration 33.7 g/dL (32.0-36.0); Mean Corpuscular Hemoglobin 31.6 pg (27.0-33.0); Mean Corpuscular Volume 93.9 fL (80-95); Mean Platelet Volume 9.4 fL (8.0-11.0); Monocytes % 6.3; Neutrophils % 66.2; Platelet Count 265 x1000/uL (130-400); RBC 4.43 m/cumm (4.00-5.20); RBC Distribution Width 12.4 % (11.7-14.6); White Blood Cell Count 8.91 k/cumm (4.4-10.8)
[2019-11-09 13:08] LABS: Anion Gap 8.2 mmol/L (3-11); BUN 23 mg/dL (7-18); CO2 27.8 mmol/L (21.0-32.0); CREATININE 0.88 mg/dL (0.55-1.02); Calcium 10.3 mg/dL (8.5-10.1); Chloride 103 mmol/L (98-107); Glucose 91 mg/dL (74-106); Potassium 4.1 mmol/L (3.5-5.1); Sodium 139 mmol/L (136-145)
[2019-11-13 07:58] LABS: 25-Hydroxy D Total 39 ng/mL; 25-Hydroxy D2 <4.0 ng/mL; 25-Hydroxy D3 39 ng/mL
== END 2019-11-09 03:08 ==
PROVIDERS: Nurse Practitioner Psychiatric/Mental Health; PCP Family Medicine; Visit Provider Family Medicine
DX: E87.1 Hypo-osmolality and hyponatremia (principal); F25.0 Schizoaffective disorder, bipolar type; E78.1 Pure hyperglyceridemia; Z79.899 Other long term (current) drug therapy; F20.9 Schizophrenia, unspecified
CPT/HCPCS: 36415; 80048; 82306; 85025

== ENCOUNTER 2019-12-07 04:38 | Outpatient (CLI) | payer MEDICARE, SELFPAY ==
[2019-12-07 13:15] LABS: Abs Immature Grans 0.02 10^3/uL (0.0-0.06); Absolute Basophil Count 0.06 10^3/uL (0.0-0.2); Absolute Eosinophil Count 0.26 10^3/uL (0.0-0.7); Absolute Lymphocyte Count 2.59 10^3/uL (1.2-3.4); Absolute Monocyte Count 0.71 10^3/uL (0.1-0.8); Basophils % 0.7; Eosinophils % 3.1; HCT 40.7 % (36.0-46.0); HGB 13.4 g/dL (11.2-15.7); Immature Grans % 0.2; Lymphocytes % 30.7; MCH 31.8 pg (27.0-33.0); MCHC 32.9 % (32.0-36.0); MCV 96.4 fL (80-95); MPV 9.7 fL (8.0-11.0); Monocytes % 8.4; Neutrophils % 56.9; Nucleated RBC 0 %; Platelet Count 262 10^3/uL (130-400); RBC 4.22 10^6/uL (3.93-5.22); RDW 12.7 % (11.7-14.6); WBC 8.44 10^3/uL (4.4-10.8)
== END 2019-12-07 04:58 ==
PROVIDERS: PCP Family Medicine; Visit Provider Nurse Practitioner Psychiatric/Mental Health
DX: F20.9 Schizophrenia, unspecified (principal); Z79.899 Other long term (current) drug therapy
CPT/HCPCS: 36415; 85025

== ENCOUNTER 2020-01-04 01:59 | Outpatient (CLI) | payer MEDICARE, SELFPAY ==
[2020-01-04 13:21] LABS: Abs Immature Grans 0.02 10^3/uL (0.0-0.06); Absolute Basophil Count 0.06 10^3/uL (0.0-0.2); Absolute Eosinophil Count 0.21 10^3/uL (0.0-0.7); Absolute Lymphocyte Count 2.07 10^3/uL (1.2-3.4); Absolute Monocyte Count 0.62 10^3/uL (0.1-0.8); Absolute Neutrophil Count 5.87 10^3/uL (1.2-6.7); Basophils % 0.7; Eosinophils % 2.4; HCT 41.4 % (36.0-46.0); HGB 13.3 g/dL (11.2-15.7); Immature Grans % 0.2; Lymphocytes % 23.4; MCH 30.8 pg (27.0-33.0); MCHC 32.1 % (32.0-36.0); MCV 95.8 fL (80-95); MPV 9.7 fL (8.0-11.0); Neutrophils % 66.3; Nucleated RBC 0 %; Platelet Count 264 10^3/uL (130-400); RBC 4.32 10^6/uL (3.93-5.22); RDW 12.3 % (11.7-14.6); RDW-SD 44.3 fL; WBC 8.85 10^3/uL (4.4-10.8)
== END 2020-01-04 02:19 ==
PROVIDERS: Nurse Practitioner Family; PCP Family Medicine; Visit Provider Nurse Practitioner Psychiatric/Mental Health
DX: F20.9 Schizophrenia, unspecified (principal); Z79.899 Other long term (current) drug therapy
CPT/HCPCS: 36415; 85025

== ENCOUNTER 2020-02-05 01:26 | Outpatient (CLI) | payer MEDICARE, SELFPAY ==
[2020-02-05 13:18] LABS: Abs Immature Grans 0.03 10^3/uL (0.0-0.06); Absolute Basophil Count 0.03 10^3/uL (0.0-0.2); Absolute Lymphocyte Count 2.31 10^3/uL (1.2-3.4); Absolute Monocyte Count 0.59 10^3/uL (0.1-0.8); Absolute Neutrophil Count 5.82 10^3/uL (1.2-6.7); Basophils % 0.3; Eosinophils % 2.2; HCT 41.1 % (36.0-46.0); HGB 13.4 g/dL (11.2-15.7); Immature Grans % 0.3; Lymphocytes % 25.7; MCH 31.2 pg (27.0-33.0); MCHC 32.6 % (32.0-36.0); MCV 95.8 fL (80-95); MPV 9.5 fL (8.0-11.0); Monocytes % 6.6; Neutrophils % 64.9; Nucleated RBC 0 %; Platelet Count 279 10^3/uL (130-400); RBC 4.29 10^6/uL (3.93-5.22); RDW 12.3 % (11.7-14.6); RDW-SD 43.3 fL; WBC 8.98 10^3/uL (4.4-10.8)
== END 2020-02-05 01:46 ==
PROVIDERS: PCP Family Medicine; Visit Provider Nurse Practitioner Psychiatric/Mental Health
DX: F20.9 Schizophrenia, unspecified (principal); Z79.899 Other long term (current) drug therapy
CPT/HCPCS: 36415; 85025

== ENCOUNTER 2020-02-14 02:17 | Outpatient (CLI) | payer MEDICARE, SELFPAY ==
--- NOTE | 2020-02-14 07:30 | DI.DEXA_ITS ---
EXAM: XR DEXA BONE DENSITY W/WO BETZY CLINICAL HISTORY: SCREENING FOR OSTEOPOSIS IN POSTMENOPAUSAL WOMAN,Z78.0 TECHNIQUE: [employer] C densitometer. DEXA scan from 2006 and 2007 FINDINGS: The lateral view of the thoracic and lumbar spine shows no evidence of compression fractures. Degene rative disc changes are noted, greatest at L1-2. The bone mineral density measurements of the lumbar spine correspond to a total T-score of 0.9, in th e normal range. This represents a 10.9 percent increase when compared with 2007. The bone mineral density measurements of the left hip correspond to total T-score of negative 2.6 and a femoral neck T-score of 0.2. The increased femoral neck T-score could be secondary to marginal os teophytes of the femoral head. The total T-score has decreased 26.5 percent when compared with 2007. The bone mineral density measurements of the left forearm correspond to a total T-score of 0.8 and a T-score of the distal 3rd of 2.2, in the normal range. The forearm was not analyzed on the previous exams. IMPRESSION: Normal bone mineral density of the lumbar spine and left forearm. Osteoporosis of left hip.
== END 2020-02-14 02:37 ==
PROVIDERS: PCP Family Medicine; Visit Provider Family Medicine
DX: Z78.0 Asymptomatic menopausal state (principal); M81.0 Age-related osteoporosis without current pathological fracture
CPT/HCPCS: 77080

== ENCOUNTER 2020-03-07 01:48 | Outpatient (CLI) | payer MEDICARE, SELFPAY ==
[2020-03-07 14:20] LABS: Abs Immature Grans 0.02 10^3/uL (0.0-0.06); Absolute Basophil Count 0.05 10^3/uL (0.0-0.2); Absolute Eosinophil Count 0.31 10^3/uL (0.0-0.7); Absolute Lymphocyte Count 2.23 10^3/uL (1.2-3.4); Absolute Neutrophil Count 5.17 10^3/uL (1.2-6.7); Basophils % 0.6; Eosinophils % 3.7; HCT 42.3 % (36.0-46.0); HGB 13.9 g/dL (11.2-15.7); Immature Grans % 0.2; Lymphocytes % 26.6; MCH 31.4 pg (27.0-33.0); MCHC 32.9 % (32.0-36.0); MCV 95.5 fL (80-95); MPV 10.5 fL (8.0-11.0); Monocytes % 7.2; Neutrophils % 61.7; Nucleated RBC 0 %; Platelet Count 291 10^3/uL (130-400); RBC 4.43 10^6/uL (3.93-5.22); RDW 12.3 % (11.7-14.6); WBC 8.38 10^3/uL (4.4-10.8)
== END 2020-03-07 02:08 ==
PROVIDERS: Nurse Practitioner Family; PCP Family Medicine; Visit Provider Nurse Practitioner Psychiatric/Mental Health
DX: F20.9 Schizophrenia, unspecified (principal); Z79.899 Other long term (current) drug therapy
CPT/HCPCS: 36415; 85025

== ENCOUNTER 2020-03-17 01:41 | Outpatient (CLI) | payer MEDICARE, SELFPAY ==
--- NOTE | 2020-03-17 13:22 | DI.MAMMO_ITS ---
EXAM: MAMMO SCREENING CLINICAL HISTORY: SCREENING,Z12.39 TECHNIQUE: Mammograms were interpreted according to the usual protocol including computer analysis w [employer] CAD system, tomosynthesis and C-view imaging. COMPARISON: 2010 through 2018 FINDINGS: The breasts are composed of mainly fatty density , Breast Density category A. No suspicious masses or suspicious microcalcifications are seen. No skin thickening or abnormal axillary lymph nodes are seen. There has been no significant change from prior exams. IMPRESSION: BI-RADS Category 1, Negative mammogram Yearly screening mammography is recommended. Breast Density - Category A, fatty density. A negative radiographic report should not delay biopsy if a dominant or clinically suspicious mass is present. Up to ten percent of cancers are not identified on mammography. A negative report may reinforce clinical impression. Adenosis and dense breasts may obscure an underlying neoplasm. False positive reports average 6 to 10%. Patient will receive a letter notifying them of these results.
== END 2020-03-17 02:01 ==
PROVIDERS: PCP Family Medicine; Visit Provider Family Medicine
DX: Z12.31 Encounter for screening mammogram for malignant neoplasm of breast (principal)
CPT/HCPCS: 77063; 77067

== ENCOUNTER 2020-03-31 14:55 | Outpatient (CLI) | payer MEDICARE, SELFPAY ==
--- NOTE | 2020-03-31 14:30 | DI.RAD_ITS ---
EXAM: XR KNEE LT 3V AP,LAT,CHARLI CLINICAL HISTORY: left knee pain. TECHNIQUE: 2D digital imaging was performed. COMPARISON: CR XR KNEE 4 VIEW LEFT from 04/06/2018 FINDINGS: There is no evidence of fracture but there is a prominent joint effusion noted. There are dance tric ompartmental osteoarthritic degenerative changes. Advanced disc space narrowing noted in the lateral compartment as well as narrowing of the patellofemoral compartment. Lesser amount of narrowing in t he medial compartment and there is an element of valgus deformity. There are prominent osteophytes i n all compartments. No osseous lesions. IMPRESSION: Severe degenerative changes. Joint effusion. DATA REPOSITORY: RADIATION DOSE DELIVERED:
--- NOTE | 2020-03-31 14:30 | DI.RAD_ITS ---
EXAM: XR HIP RT COMPLETE AP PELVIS CLINICAL HISTORY: right hip pain. TECHNIQUE: 2D digital imaging was performed. COMPARISON: CR XR DEXA BONE DENSITY W/WO BETZY from 02/14/2020 FINDINGS: No evidence of fracture but there is severe advanced narrowing of the right hip joint space bone on b one with degenerative subarticular cyst also noted. Milder degenerative changes are seen in the oppo site-left hip. There also marginal osteophytes off the right femoral head noted. No osseous lesions IMPRESSION: Severe osteoarthritis right hip. DATA REPOSITORY: RADIATION DOSE DELIVERED:
== END 2020-03-31 15:15 ==
PROVIDERS: PCP Family Medicine; Referring Provider Family Medicine; Visit Provider Student in an Organized Health Care Education/Training Program
DX: M17.12 Unilateral primary osteoarthritis, left knee (principal); M25.462 Effusion, left knee; M16.11 Unilateral primary osteoarthritis, right hip; M16.12 Unilateral primary osteoarthritis, left hip
CPT/HCPCS: 20610; 73562; 99214; 73502; J1040

== ENCOUNTER 2020-04-04 04:46 | Outpatient (CLI) | payer MEDICARE, SELFPAY ==
[2020-04-04 14:09] LABS: Abs Immature Grans 0.02 10^3/uL (0.0-0.06); Absolute Basophil Count 0.04 10^3/uL (0.0-0.2); Absolute Eosinophil Count 0.29 10^3/uL (0.0-0.7); Absolute Lymphocyte Count 2.68 10^3/uL (1.2-3.4); Absolute Monocyte Count 0.74 10^3/uL (0.1-0.8); Absolute Neutrophil Count 6.16 10^3/uL (1.2-6.7); Basophils % 0.4; Eosinophils % 2.9; HCT 41.5 % (36.0-46.0); HGB 13.4 g/dL (11.2-15.7); Immature Grans % 0.2; MCH 30.5 pg (27.0-33.0); MCHC 32.3 % (32.0-36.0); MCV 94.3 fL (80-95); Monocytes % 7.5; Nucleated RBC 0 %; Platelet Count 278 10^3/uL (130-400); RDW 12.1 % (11.7-14.6); RDW-SD 42.1 fL; WBC 9.93 10^3/uL (4.4-10.8)
== END 2020-04-04 05:06 ==
PROVIDERS: PCP Family Medicine; Visit Provider Nurse Practitioner Family
DX: F20.9 Schizophrenia, unspecified (principal); Z79.899 Other long term (current) drug therapy
CPT/HCPCS: 36415; 85025

== ENCOUNTER 2020-04-24 01:54 | Outpatient (CLI) | payer MEDICARE, SELFPAY ==
--- NOTE | 2020-04-24 13:36 | DI.RAD_ITS ---
EXAM: RF JOINT INJECTION FLUORO GUID CLINICAL HISTORY: R HIP PAIN,M25.551, RT HIP INJECTION TECHNIQUE: 2D and realtime digital imaging was performed. CONTRAST MATERIAL: Refer to procedure report. COMPARISON: No exams were available for comparison FINDINGS: Fluoroscopy was provided for Dr. Barber during right hip injection. Please refer to the procedure report for complete details. Fluoro time: 5 seconds. IMPRESSION:
--- NOTE | 2020-04-24 14:03 | W.PROCNOTE ---
Date of service: 04/24/20 Time of Service: 13:33 Procedure Note Date of procedure: 04/24/20 Procedure: Right Hip Injection with Fluoroscopic Guidance Surgeon/Proceduralist/Physician: González Barber Procedure Diagnosis: Right Hip Osteoarthritis Procedure Indications: Yaima has had persistent pain of the RIGHT hip and groin. Noninvasive measures have been tried. To serve as both diagnostic and therapeutic, an injection under fluoroscopy was recommended. I had discussed the risks of the procedure and the patient elected to proceed. Procedure Description: Yaima was greeted in the flouroscopy room. The correct side was identified and the consent was reviewed with the patient and signed. The patient was then placed in the supine position on the fluoroscopy table. The RIGHT hip was then prepped with Chloraprep. The anterolateral injection starting point was identiifed by bony landmarks and fluoroscopy. The skin and soft tissue in the tract of the injection was anesthetized with 1% Lidocaine. A spinal needle was then inserted deep into the hip joint at the level of the lateral femoral neck under fluoroscopic guidance. A small amount of Omnipaque solution was injected to confirm intraarticular placement. Once confirmed, the hip was injected with 6cc of 0.5% Bupivicaine and 80mg of Depo-Medrol. A bandaid was placed on the injection site. The patient tolerated the procedure well and noted improvement in pre-injection pain.
[2020-04-24] MEDS: Omnipaque 300 MG/ML 10 ML BTL IJ (14:20)
[2020-04-24] MEDS: methylPREDNISolone ACETATE 80 MG/ML VIAL IM (14:21)
== END 2020-04-24 02:14 ==
PROVIDERS: PCP Family Medicine; Visit Provider Student in an Organized Health Care Education/Training Program
DX: M25.551 Pain in right hip (principal); M16.11 Unilateral primary osteoarthritis, right hip
CPT/HCPCS: 20610; 77002; J1040

== ENCOUNTER 2020-05-02 02:06 | Outpatient (CLI) | payer MEDICARE, SELFPAY ==
[2020-05-02 13:23] LABS: Abs Immature Grans 0.03 10^3/uL (0.0-0.06); Absolute Basophil Count 0.06 10^3/uL (0.0-0.2); Absolute Eosinophil Count 0.19 10^3/uL (0.0-0.7); Absolute Lymphocyte Count 2.38 10^3/uL (1.2-3.4); Absolute Monocyte Count 0.86 10^3/uL (0.1-0.8); Absolute Neutrophil Count 6.38 10^3/uL (1.2-6.7); Basophils % 0.6; Eosinophils % 1.9; HCT 42.1 % (36.0-46.0); HGB 13.6 g/dL (11.2-15.7); Immature Grans % 0.3; MCHC 32.3 % (32.0-36.0); MCV 95.9 fL (80-95); MPV 9.2 fL (8.0-11.0); Monocytes % 8.7; Neutrophils % 64.5; Nucleated RBC 0 %; Platelet Count 280 10^3/uL (130-400); RBC 4.39 10^6/uL (3.93-5.22); RDW 12.8 % (11.7-14.6); RDW-SD 45.5 fL
== END 2020-05-02 02:26 ==
PROVIDERS: PCP Family Medicine; Visit Provider Nurse Practitioner Family
DX: F20.9 Schizophrenia, unspecified (principal); Z79.899 Other long term (current) drug therapy
CPT/HCPCS: 36415; 85025

== ENCOUNTER 2020-05-23 18:40 | Outpatient (REF) | payer MEDICARE, SELFPAY ==
[2020-05-23 21:02] LABS: Bacteria Few HPF (Negative); C & S Indicated? No; Casts Negative LPF (Negative); Crystals Moderate Amorphous HPF (Negative); Epithelial Cells Negative HPF (Negative); Mucus Negative (Negative); WBC Negative HPF (0-5)
== END 2020-05-23 19:00 ==
LOC: NCHCN 18:40
PROVIDERS: PCP Family Medicine; Visit Provider Family Medicine
DX: R31.9 Hematuria, unspecified (principal)
CPT/HCPCS: 81015

== ENCOUNTER 2020-05-29 03:54 | Outpatient (CLI) | payer MEDICARE, SELFPAY ==
[2020-05-29 16:07] LABS: Abs Immature Grans 0.03 10^3/uL (0.0-0.06); Absolute Basophil Count 0.07 10^3/uL (0.0-0.2); Absolute Eosinophil Count 0.25 10^3/uL (0.0-0.7); Absolute Lymphocyte Count 2.91 10^3/uL (1.2-3.4); Absolute Monocyte Count 0.66 10^3/uL (0.1-0.8); Absolute Neutrophil Count 5.33 10^3/uL (1.2-6.7); Basophils % 0.8; Eosinophils % 2.7; HCT 41.9 % (36.0-46.0); HGB 13.6 g/dL (11.2-15.7); Immature Grans % 0.3; Lymphocytes % 31.5; MCHC 32.5 % (32.0-36.0); MCV 95.4 fL (80-95); MPV 9.5 fL (8.0-11.0); Monocytes % 7.1; Neutrophils % 57.6; Nucleated RBC 0 %; Platelet Count 274 10^3/uL (130-400); RBC 4.39 10^6/uL (3.93-5.22); RDW 12.6 % (11.7-14.6); RDW-SD 45.1 fL; WBC 9.25 10^3/uL (4.4-10.8)
[2020-05-29 17:29] LABS: TSH (W/Ref FT4) 1.58 uIU/mL (0.36-3.74)
[2020-05-30 13:06] LABS: Calculated LDL 120 mg/dL (<100); Cholesterol 201 mg/dL (<200); HDL Cholesterol 64 mg/dL (40-60); Triglyceride 86 mg/dL (<150)
== END 2020-05-29 03:55 | disposition home or self-care (01) ==
LOC: LBO 03:54
PROVIDERS: Psychiatry & Neurology Psychiatry; PCP Family Medicine; Visit Provider Family Medicine
DX: F20.9 Schizophrenia, unspecified (principal); Z79.899 Other long term (current) drug therapy; E78.5 Hyperlipidemia, unspecified; E03.9 Hypothyroidism, unspecified
CPT/HCPCS: 36415; 80061; 84443; 85025

== ENCOUNTER 2020-06-27 03:24 | Outpatient (CLI) | payer MEDICARE, SELFPAY ==
[2020-06-27 13:31] LABS: Abs Immature Grans 0.03 10^3/uL (0.0-0.06); Absolute Basophil Count 0.05 10^3/uL (0.0-0.2); Absolute Eosinophil Count 0.12 10^3/uL (0.0-0.7); Absolute Lymphocyte Count 1.79 10^3/uL (1.2-3.4); Absolute Monocyte Count 0.59 10^3/uL (0.1-0.8); Absolute Neutrophil Count 6.78 10^3/uL (1.2-6.7); Basophils % 0.5; Eosinophils % 1.3; HCT 41.6 % (36.0-46.0); HGB 13.6 g/dL (11.2-15.7); Immature Grans % 0.3; Lymphocytes % 19.1; MCH 31.1 pg (27.0-33.0); MCHC 32.7 % (32.0-36.0); MCV 95.2 fL (80-95); MPV 9.8 fL (8.0-11.0); Monocytes % 6.3; Neutrophils % 72.5; Nucleated RBC 0 %; Platelet Count 276 10^3/uL (130-400); RBC 4.37 10^6/uL (3.93-5.22); RDW 12.3 % (11.7-14.6); RDW-SD 43.3 fL; WBC 9.36 10^3/uL (4.4-10.8)
[2020-06-27 13:44] LABS: Hemoglobin A1C 5.4 % (<5.7)
[2020-06-27 14:11] LABS: Bacteria Moderate HPF (Negative); C & S Indicated? No/Sq. Contamination; Casts Negative LPF (Negative); Crystals Negative HPF (Negative); Epithelial Cells Moderate HPF (Negative); Mucus Moderate (Negative); RBC Negative HPF (0-2)
[2020-06-27 14:13] LABS: ALT 30 U/L (14-59); AST 16 U/L (15-37); Albumin 3.7 g/dL (3.4-5.0); Alkaline Phosphatase 143 U/L (46-116); Anion Gap 10.2 mmol/L (3-11); BUN 23 mg/dL (7-18); Bilirubin, Total 0.4 mg/dL (0.2-1.0); CO2 26.8 mmol/L (21.0-32.0); CREATININE 0.8 mg/dL (0.55-1.02); Calcium 9.8 mg/dL (8.5-10.1); Chloride 106 mmol/L (98-107); FREE T4 1.29 ng/dL (0.76-1.46); Glucose 97 mg/dL (74-106); Magnesium 1.7 mg/dL (1.8-2.4); Potassium 3.6 mmol/L (3.5-5.1); Sodium 143 mmol/L (136-145); TSH 1.88 uIU/mL (0.36-3.74); Total Protein 6.6 g/dL (6.4-8.2)
[2020-06-27 15:00] LABS: Vitamin B12 468 pg/mL (193-986)
[2020-06-27 15:02] LABS: Folate > 20.0 ng/mL (8.6-20.0)
[2020-06-27 22:04] LABS: T3,Free 3.4 pg/mL (2.8-5.3)
[2020-07-01 00:38] LABS: 25-Hydroxy D Total 43 ng/mL; 25-Hydroxy D2 <4.0 ng/mL; 25-Hydroxy D3 43 ng/mL
== END 2020-06-27 03:25 | disposition home or self-care (01) ==
LOC: LBO 03:25
PROVIDERS: PCP Family Medicine; Visit Provider Psychiatry & Neurology Psychiatry
DX: F25.0 Schizoaffective disorder, bipolar type (principal); Z79.899 Other long term (current) drug therapy; E31.9 Polyglandular dysfunction, unspecified; R31.9 Hematuria, unspecified
CPT/HCPCS: 36415; 80053; 82306; 81015; 82607; 82746; 83036; 83735; 84439; 84443; 84481; 85025

== ENCOUNTER 2020-07-31 02:06 | Outpatient (CLI) | payer MEDICARE, SELFPAY ==
[2020-07-31 13:26] LABS: Abs Immature Grans 0.02 10^3/uL (0.0-0.06); Absolute Basophil Count 0.07 10^3/uL (0.0-0.2); Absolute Lymphocyte Count 2.03 10^3/uL (1.2-3.4); Absolute Monocyte Count 0.54 10^3/uL (0.1-0.8); Absolute Neutrophil Count 5.53 10^3/uL (1.2-6.7); Basophils % 0.8; Eosinophils % 2.4; HCT 42.3 % (36.0-46.0); HGB 13.9 g/dL (11.2-15.7); Immature Grans % 0.2; Lymphocytes % 24.2; MCH 31.3 pg (27.0-33.0); MCHC 32.9 % (32.0-36.0); MCV 95.3 fL (80-95); MPV 9.9 fL (8.0-11.0); Monocytes % 6.4; Nucleated RBC 0 %; Platelet Count 242 10^3/uL (130-400); RBC 4.44 10^6/uL (3.93-5.22); RDW 11.9 % (11.7-14.6); RDW-SD 41.9 fL; WBC 8.39 10^3/uL (4.4-10.8)
== END 2020-07-31 02:07 | disposition home or self-care (01) ==
LOC: LBO 02:07
PROVIDERS: PCP Family Medicine; Visit Provider Psychiatry & Neurology Psychiatry
DX: F20.9 Schizophrenia, unspecified (principal); Z79.899 Other long term (current) drug therapy
CPT/HCPCS: 36415; 85025

== ENCOUNTER → 2020-08-18 14:22 | Outpatient (BNVA) | payer MEDICARE, SELFPAY | PROVIDERS: PCP Family Medicine; Referring Provider Family Medicine; Visit Provider Physician Assistant | DX: M17.12 Unilateral primary osteoarthritis, left knee (principal) | CPT/HCPCS: 20610; J1040 ==

== ENCOUNTER 2020-08-28 03:35 | Outpatient (CLI) | payer MEDICARE, SELFPAY ==
[2020-08-28 13:58] LABS: Abs Immature Grans 0.04 10^3/uL (0.0-0.06); Absolute Basophil Count 0.05 10^3/uL (0.0-0.2); Absolute Eosinophil Count 0.07 10^3/uL (0.0-0.7); Absolute Lymphocyte Count 2.16 10^3/uL (1.2-3.4); Absolute Monocyte Count 0.73 10^3/uL (0.1-0.8); Absolute Neutrophil Count 8.94 10^3/uL (1.2-6.7); Basophils % 0.4; Eosinophils % 0.6; HCT 41.1 % (36.0-46.0); HGB 13.6 g/dL (11.2-15.7); Immature Grans % 0.3; MCHC 33.1 % (32.0-36.0); MCV 93.6 fL (80-95); MPV 9.8 fL (8.0-11.0); Monocytes % 6.1; Neutrophils % 74.6; Nucleated RBC 0 %; Platelet Count 259 10^3/uL (130-400); RBC 4.39 10^6/uL (3.93-5.22); RDW 12.6 % (11.7-14.6); RDW-SD 43.6 fL; WBC 11.99 10^3/uL (4.4-10.8)
[2020-08-28 14:08] LABS: Hemoglobin A1C 5.4 % (<5.7)
[2020-08-28 15:23] LABS: ALT 30 U/L (14-59); AST 15 U/L (15-37); Albumin 3.7 g/dL (3.4-5.0); Alkaline Phosphatase 137 U/L (46-116); Anion Gap 10.2 mmol/L (3-11); BUN 24 mg/dL (7-18); Bilirubin, Total 0.3 mg/dL (0.2-1.0); CO2 25.8 mmol/L (21.0-32.0); CREATININE 0.9 mg/dL (0.55-1.02); Calcium 9.9 mg/dL (8.5-10.1); Chloride 105 mmol/L (98-107); Glucose 100 mg/dL (74-106); Magnesium 1.8 mg/dL (1.8-2.4); Potassium 4.2 mmol/L (3.5-5.1); Sodium 141 mmol/L (136-145); TSH 1.39 uIU/mL (0.36-3.74); Total Protein 6.5 g/dL (6.4-8.2); Vitamin B12 449 pg/mL (193-986)
[2020-08-28 15:24] LABS: Folate > 20.0 ng/mL (8.6-20.0)
[2020-08-28 16:12] LABS: FREE T4 1.19 ng/dL (0.76-1.46)
[2020-08-28 21:19] LABS: T3,Free 2.8 pg/mL (2.8-5.3)
[2020-09-02 22:47] LABS: 25-Hydroxy D Total 52 ng/mL; 25-Hydroxy D2 <4.0 ng/mL; 25-Hydroxy D3 52 ng/mL
== END 2020-08-28 03:36 | disposition home or self-care (01) ==
LOC: LBO 03:35
PROVIDERS: PCP Family Medicine; Visit Provider Psychiatry & Neurology Psychiatry
DX: F25.0 Schizoaffective disorder, bipolar type (principal); Z13.228 Encounter for screening for other metabolic disorders; Z79.899 Other long term (current) drug therapy
CPT/HCPCS: 36415; 80053; 82306; 82607; 82746; 83036; 83735; 84439; 84443; 84481; 85025

== ENCOUNTER 2020-09-25 03:19 | Outpatient (CLI) | payer MEDICARE, SELFPAY ==
[2020-09-25 13:00] LABS: Abs Immature Grans 0.02 10^3/uL (0.0-0.06); Absolute Basophil Count 0.09 10^3/uL (0.0-0.2); Absolute Eosinophil Count 0.22 10^3/uL (0.0-0.7); Absolute Lymphocyte Count 2.33 10^3/uL (1.2-3.4); Absolute Monocyte Count 0.65 10^3/uL (0.1-0.8); Absolute Neutrophil Count 5.67 10^3/uL (1.2-6.7); Eosinophils % 2.4; HGB 13.4 g/dL (11.2-15.7); Immature Grans % 0.2; Lymphocytes % 25.9; MCH 30.8 pg (27.0-33.0); MCHC 33.5 % (32.0-36.0); MPV 9.6 fL (8.0-11.0); Monocytes % 7.2; Neutrophils % 63.3; Nucleated RBC 0 %; Platelet Count 286 10^3/uL (130-400); RBC 4.35 10^6/uL (3.93-5.22); RDW 12.4 % (11.7-14.6); RDW-SD 41.6 fL; WBC 8.98 10^3/uL (4.4-10.8)
== END 2020-09-25 03:20 | disposition home or self-care (01) ==
LOC: LBO 03:19
PROVIDERS: PCP Family Medicine; Visit Provider Psychiatry & Neurology Psychiatry
DX: F20.9 Schizophrenia, unspecified (principal); Z79.899 Other long term (current) drug therapy
CPT/HCPCS: 36415; 85025

== ENCOUNTER 2020-10-09 01:08 | Outpatient (CLI) | payer MEDICARE, SELFPAY ==
--- NOTE | 2020-10-09 13:50 | DI.RAD_ITS ---
Exam(s) RF JOINT INJECTION FLUORO GUID EXAM: RF JOINT INJECTION FLUORO GUID CLINICAL HISTORY: R HIP INJ UNDER FLUORO,OA RT HIP TECHNIQUE: Fluoroscopy provided. Radiologist not present. CONTRAST MATERIAL: None COMPARISON: No exams were available for comparison FINDINGS: Fluoroscopy was provided for Dr. Barber during . Submitted image(s) reveal placement of a needle at the level of the lateral aspect of the femoral hea d using lateral approach. Contrast was injected into the intra-articular space. Please refer to the procedure report for complete details. Cumulative Dose: nohemy Barbosa=2.09 mGy IMPRESSION: RADIATION DOSE DELIVERED:
--- NOTE | 2020-10-09 13:50 | W.PROCNOTE ---
Date of service: 10/09/20 Time of Service: 13:50 Procedure Note Date of procedure: 10/09/20 Procedure: Right Hip Injection with Fluoroscopic Guidance Surgeon/Proceduralist/Physician: González Barber Procedure Diagnosis: Right Hip Osteoarthritis Procedure Indications: Yaima has had persistent pain of the RIGHT hip and groin. Noninvasive measures have been tried. She has had a previous hip injection with excellent results and desirs to repeat that. I had discussed the risks of the procedure and the patient elected to proceed. Procedure Description: Yaima was greeted in the flouroscopy room. The correct side was identified and the consent was reviewed with the patient and signed. The patient was then placed in the supine position on the fluoroscopy table. The RIGHT hip was then prepped with Chloraprep. The anterolateral injection starting point was identiifed by bony landmarks and fluoroscopy. The skin and soft tissue in the tract of the injection was anesthetized with 1% Lidocaine. A spinal needle was then inserted deep into the hip joint at the level of the lateral femoral neck under fluoroscopic guidance. A small amount of Omnipaque solution was injected to confirm intraarticular placement. Once confirmed, the hip was injected with 6cc of 0.5% Bupivicaine and 80mg of Depo-Medrol. A bandaid was placed on the injection site. The patient tolerated the procedure well and noted improvement in pre-injection pain.
== END 2020-10-09 01:28 ==
PROVIDERS: PCP Family Medicine; Visit Provider Student in an Organized Health Care Education/Training Program
DX: M16.11 Unilateral primary osteoarthritis, right hip (principal); M25.551 Pain in right hip; R10.31 Right lower quadrant pain
CPT/HCPCS: 20610; 77002

== ENCOUNTER 2020-10-15 01:41 | Outpatient (CLI) | payer MEDICARE, SELFPAY ==
--- NOTE | 2020-10-15 08:30 | DI.CTLCSR_ITS ---
Exam(s) CT CHEST LUNG CANCER SCREEN EXAM: CT CHEST LUNG CANCER SCREEN CLINICAL HISTORY: Screening for lung cancer,CURRENT SMOKER, F17.210. 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 In the peripheral aspect of the right u pper lobe there is a 2 millimeter pleural based benign-appearing nodule noted. There is also a semi lunar nodule posteriorly in the right upper lobe which is unchanged from 2012 and therefore benign. No other significant right upper lobe findings nor significant focal findings in the right middle lob e. In the right lower lobe there are 3 small subpleural nodules which are unchanged from 2012 and th erefore benign. Lower down in the anterior basal segment of the right lower lobe there is a small pl eural base nodule which is also unchanged from 2012 and therefore benign. No pleural effusion. In the opposite-left lung there is a benign-appearing small air pleural thickening over the posterior left upper lobe which is unchanged from 2012 and therefore benign. There is also pleural-based nonc alcified nodule measuring 7 x 5 millimeters in the anterior basal segment of the left lower lobe bord ering on the inferior lingular segment. This is unchanged from 2012 and therefore benign. No new le ft lung nodules. There are no pleural effusions on either side. There are no focal significant findings in the trache a and mainstem bronchi. MEDIASTINUM: There is no obvious hilar nor mediastinal adenopathy. CARDIAC: Heart size is normal. Caliber of the ascending thoracic aorta is enlarged, measuring 4.1 cm . Diameter of the aortic arch is 3.1 cm. Diameter of the descending thoracic aorta is within normal limits.Slight thickening of the pericardium is noted anteriorly. OTHER: OSSEOUS: There is a round benign-appearing 9 millimeter diameter cyst in the left shoulder osseous gl enoid.. There is a healed fracture of the posterior aspect of the left 9th rib. No new significant osseous lesions.. IMPRESSION: 1. Multiple bilateral stable pulmonary nodules, unchanged from 2012 and therefore benign. There are no new pulmonary nodules nor pleural effusions nor obvious intrathoracic adenopathy evident on this n oninfused study. 2. There is slight prominence of the ascending thoracic aorta which exhibits diameter 4.1 cm. 3. Small pericardial effusion. Lung rads category 1-annual screening in 12 months. Nine stable lung nodules. Other non pulmonary findings as above. Lung-RADS 1.0 CATEGORIES: Category 0 - Prior chest CT exam(s) being located for comparison. Category 1 - Annual screening in 12 months. No nodules or definitely benign nodules. Category 2 - Annual screening in 12 months. Benign appearance. Nodules with low likelihood of becomin g active cancer. Category 3 - 6-month follow-up. Probably benign. Short-term follow-up suggested. Nodules with low lik elihood of becoming active cancer. Category 4A - 3-month follow-up and CT/PET if >8 mm in size. Suspicious finding. Findings which requi re additional testing. Category 4B - Findings which require additional testing and tissue sampling. Modifier S- Potentially clinically significant findings (non lung cancer) RADIATION DOSE DELIVERED: 82.86mGy.cm Total DLP 1.84mGy CTDIvol DATA REPOSITORY: All CT scans at this facility are submitted to the National Radiology Data Registry (NRDR) Dose Index Registry (DIR) with the [employer] (ACR). RADIATION OPTIMIZATION: All CT scans at this facility use at least one of these dose optimization te chniques: automated exposure control; mA and/or kV adjustment per patient size (includes targeted exa ms where dose is matched to clinical indication); or iterative reconstruction.
== END 2020-10-15 02:01 ==
PROVIDERS: PCP Family Medicine; Visit Provider Family Medicine
DX: Z12.2 Encounter for screening for malignant neoplasm of respiratory organs (principal); R91.8 Other nonspecific abnormal finding of lung field; I31.3 Pericardial effusion (noninflammatory); F17.210 Nicotine dependence, cigarettes, uncomplicated
CPT/HCPCS: 71271

== ENCOUNTER 2020-10-24 01:57 | Outpatient (CLI) | payer MEDICARE, SELFPAY ==
[2020-10-24 12:41] LABS: Abs Immature Grans 0.01 10^3/uL (0.0-0.06); Absolute Basophil Count 0.05 10^3/uL (0.0-0.2); Absolute Eosinophil Count 0.25 10^3/uL (0.0-0.7); Absolute Lymphocyte Count 2.04 10^3/uL (1.2-3.4); Absolute Monocyte Count 0.63 10^3/uL (0.1-0.8); Absolute Neutrophil Count 4.82 10^3/uL (1.2-6.7); Basophils % 0.6; Eosinophils % 3.2; HCT 38.3 % (36.0-46.0); HGB 12.7 g/dL (11.2-15.7); Immature Grans % 0.1; Lymphocytes % 26.2; MCH 31.6 pg (27.0-33.0); MCHC 33.2 % (32.0-36.0); MCV 95.3 fL (80-95); MPV 9.5 fL (8.0-11.0); Monocytes % 8.1; Neutrophils % 61.8; Nucleated RBC 0 %; Platelet Count 242 10^3/uL (130-400); RBC 4.02 10^6/uL (3.93-5.22); RDW 12.6 % (11.7-14.6); RDW-SD 44.6 fL
== END 2020-10-24 01:58 | disposition home or self-care (01) ==
LOC: LBO 01:59
PROVIDERS: PCP Family Medicine; Visit Provider Psychiatry & Neurology Psychiatry
DX: F20.9 Schizophrenia, unspecified (principal); Z79.899 Other long term (current) drug therapy
CPT/HCPCS: 36415; 85025

== ENCOUNTER 2020-11-21 03:15 | Outpatient (CLI) | payer MEDICARE, SELFPAY ==
[2020-11-21 13:35] LABS: Abs Immature Grans 0.02 10^3/uL (0.0-0.06); Absolute Basophil Count 0.06 10^3/uL (0.0-0.2); Absolute Eosinophil Count 0.29 10^3/uL (0.0-0.7); Absolute Lymphocyte Count 1.62 10^3/uL (1.2-3.4); Absolute Monocyte Count 0.56 10^3/uL (0.1-0.8); Basophils % 0.8; Eosinophils % 3.6; HCT 38.4 % (36.0-46.0); HGB 12.7 g/dL (11.2-15.7); Immature Grans % 0.3; Lymphocytes % 20.4; MCH 30.9 pg (27.0-33.0); MCHC 33.1 % (32.0-36.0); MCV 93.4 fL (80-95); MPV 9.3 fL (8.0-11.0); Neutrophils % 67.9; Nucleated RBC 0 %; Platelet Count 250 10^3/uL (130-400); RBC 4.11 10^6/uL (3.93-5.22); RDW 12.3 % (11.7-14.6); RDW-SD 42.5 fL; WBC 7.95 10^3/uL (4.4-10.8)
== END 2020-11-21 03:16 | disposition home or self-care (01) ==
PROVIDERS: PCP Family Medicine; Visit Provider Psychiatry & Neurology Psychiatry
DX: F20.9 Schizophrenia, unspecified (principal); Z79.899 Other long term (current) drug therapy
CPT/HCPCS: 36415; 85025

== ENCOUNTER 2020-12-23 03:34 | Outpatient (CLI) | payer MEDICARE, SELFPAY ==
[2020-12-23 12:37] LABS: Abs Immature Grans 0.02 10^3/uL (0.0-0.06); Absolute Basophil Count 0.06 10^3/uL (0.0-0.2); Absolute Eosinophil Count 0.26 10^3/uL (0.0-0.7); Absolute Lymphocyte Count 2.46 10^3/uL (1.2-3.4); Absolute Monocyte Count 0.61 10^3/uL (0.1-0.8); Absolute Neutrophil Count 5.21 10^3/uL (1.2-6.7); Basophils % 0.7; HCT 42.2 % (36.0-46.0); HGB 13.5 g/dL (11.2-15.7); Immature Grans % 0.2; Lymphocytes % 28.5; MCH 30.5 pg (27.0-33.0); MCV 95.3 fL (80-95); MPV 9.5 fL (8.0-11.0); Monocytes % 7.1; Neutrophils % 60.5; Nucleated RBC 0 %; Platelet Count 267 10^3/uL (130-400); RBC 4.43 10^6/uL (3.93-5.22); RDW 12.2 % (11.7-14.6); RDW-SD 42.6 fL; WBC 8.62 10^3/uL (4.4-10.8)
== END 2020-12-23 03:35 | disposition home or self-care (01) ==
LOC: LBO 03:34
PROVIDERS: PCP Family Medicine; Visit Provider Psychiatry & Neurology Psychiatry
DX: F20.9 Schizophrenia, unspecified (principal); Z79.899 Other long term (current) drug therapy
CPT/HCPCS: 36415; 85025

== ENCOUNTER 2021-01-20 03:56 | Outpatient (CLI) | payer MEDICARE, SELFPAY ==
[2021-01-20 13:23] LABS: Abs Immature Grans 0.02 10^3/uL (0.0-0.06); Absolute Basophil Count 0.07 10^3/uL (0.0-0.2); Absolute Eosinophil Count 0.19 10^3/uL (0.0-0.7); Absolute Lymphocyte Count 1.76 10^3/uL (1.2-3.4); Absolute Monocyte Count 0.52 10^3/uL (0.1-0.8); Basophils % 0.9; Eosinophils % 2.4; HGB 12.9 g/dL (11.2-15.7); Immature Grans % 0.3; Lymphocytes % 22.7; MCH 30.5 pg (27.0-33.0); MCHC 32.3 % (32.0-36.0); MCV 94.6 fL (80-95); MPV 9.3 fL (8.0-11.0); Monocytes % 6.7; Nucleated RBC 0 %; Platelet Count 277 10^3/uL (130-400); RBC 4.23 10^6/uL (3.93-5.22); RDW 12.1 % (11.7-14.6); RDW-SD 42.2 fL; WBC 7.76 10^3/uL (4.4-10.8)
[2021-01-20 15:20] LABS: TSH (W/Ref FT4) 1.07 uIU/mL (0.36-3.74)
== END 2021-01-20 03:57 | disposition home or self-care (01) ==
LOC: LBO 03:56
PROVIDERS: Psychiatry & Neurology Psychiatry; PCP Family Medicine; Visit Provider Family Medicine
DX: E03.9 Hypothyroidism, unspecified (principal); Z79.899 Other long term (current) drug therapy
CPT/HCPCS: 36415; 84443; 85025

== ENCOUNTER 2021-02-15 16:42 | Inpatient (IN) | payer MEDICARE, SELFPAY ==
[2021-02-15] VITALS (31 sets, daily range): BP systolic 130–168; BP diastolic 72–129; PULSE 90–154; RESP 15–36; TEMP 36.2–36.6; O2SAT 85–100
--- NOTE | 2021-02-15 17:00 | RT.EKG_ITS ---
APPROVED REPORT Exam: Resting ECG Reason for Exam: possible od Patient Location: E HR:99 bpm ECG Measurements Heart Rate 99 AXIS MD 189 P 71 QRSd 98 QRS 53 QT 367 T 15 QTc 472 Conclusion Sinus rhythm...normal P axis, V-rate 60- 99 Left atrial enlargement...P, P'>60mS, <-0.15mV V1. Sinus. No STEMI. I have reviewed and interpreted ECG and agree with software generated interpretation.
--- NOTE | 2021-02-15 17:00 | DI.CT_ITS ---
Exam(s) CT HEAD WO EXAM: CT HEAD WO CLINICAL HISTORY: AMS. TECHNIQUE: Imaging Protocol: Axial computed tomography images with coronal and sagittal reformatted images were created and reviewed COMPARISON: No exams were available for comparison FINDINGS: There are no skull fractures nor fluid in the visualized paranasal sinuses. Mucosal thickening left maxillary sinus noted, not associated with a fluid level therein. There is no evidence of intracranial hemorrhage, mass effect, or shift of midline structures. There are no extra-axial fluid collections. The ventricles are not enlarged or shifted and there is no blo od within the ventricular system nor within the basal cisterns. IMPRESSION: No acute intracranial findings on this noninfused CT scan of the brain. RADIATION DOSE DELIVERED: 784.38mGy.cm Total DLP DATA REPOSITORY: All CT scans at this facility are submitted to the National Radiology Data Registry (NRDR) Dose Index Registry (DIR) with the [employer] (ACR). RADIATION OPTIMIZATION: All CT scans at this facility use at least one of these dose optimization te chniques: automated exposure control; mA and/or kV adjustment per patient size (includes targeted exa ms where dose is matched to clinical indication); or iterative reconstruction.
--- NOTE | 2021-02-15 17:12 | DI.RAD_ITS ---
Exam(s) XR CHEST 1V IN DI DEPT EXAM: XR CHEST 1V IN DI DEPT CLINICAL HISTORY: AMS. TECHNIQUE: 2D digital imaging was performed. COMPARISON: CR LEFT RIBS TO INCLUDE CXR from 03/06/2015 FINDINGS: Heart size is upper normal. The mediastinum is not widened. Lungs are clear. No infiltrates nor obvious pleural effusions. IMPRESSION: No acute pulmonary findings on this single AP portable view of the chest. Diminution of the subacromial space of the right shoulder is again noted, similar to 2015 and most pr obably consistent with chronic full-thickness rotator cuff tear. DATA REPOSITORY: RADIATION DOSE DELIVERED: All CT scans at this facility use at least one of these dose optimization techniques: automated exposure control; mA and/or kV adjustment per patient size (includes targeted e xams where dose is matched to clinical indication); or iterative reconstruction.
--- NOTE | 2021-02-15 17:34 | ED.GENADUL_ITS ---
Discharge Plan Disposition Patient Disposition: [facility] INPATIENT Condition: Serious Discharge Details Clinical Impression: AMS (altered mental status), Depression, Hypokalemia, Elevated troponin Admit Date/Time: 02/15/21 21:10 Admit Provider: Israel Greco Attending Provider: Israel Greco Primary Care Provider: Dillon Scott. ED Provider: Italo Viera Medical Decision Making This is a 65-year-old female presented to the ER today with a good friend for altered mental status, depression, and what sounds to be an accidental overdose, taking 2 extra tablet of BuSpar and clozapine. Patient is a rather vague and poor historian but does deny recent illness or trauma. She denies any suicidal ideation or intentional overdose. Will initiate an altered mental status work- up including head CT. She is afebrile, no obvious signs of infection but will obtain chest x-ray and urinalysis. Mucous membranes are slightly dry, will give IV fluid. Given her depression will place interim safety plan and request a mental health evaluation but she is with her friend and I do not believe that she need a CPSO. Given the vagueness of her presentation, potential overdose, will obtain troponin and EKG. Patient is able to answer yes and no questions, b ut is only able to partly partake in HPI. She is redirectable and is able to follow commands. There is no obvious focal neuro deficit. Laboratory values reveal a white blood cell count of 9.22 hemoglobin 12.4 hematocrit 36.0 platelet count 246. Sodium 132 potassium 2.5 anion gap 11.8 creatinine 0.7 with a GFR greater than 60. Magnesium 1.5 creatinine kinase 270, troponin less than 0.05, TSH 0.30 free T4 2.04. Urinalysis with 40 ketones, no signs of infection. Salicylate less than 2.8, acetaminophen less than 2, alcohol less than 3, tox screen negative, Covid negative. No evidence of nuchal rigidity on examination. Patient given 1 g IV mag as well as 40 p.o. and 10 IV Repeat troponin 0.29. Patient denies any chest pain. Repeat EKG performed at 2044, official report by Dr. Delgado. Sinus rhythm, ventricular rate 96, no STEMI. Given her elevated troponin, she is not medically cleared, will await mental health evaluation. CT imaging of head and chest x-ray unremarkable. Given her altered mental status, hypokalemia, noncompliant, likely unsafe to be home alone, elevated troponin, etc. I do believe discussing the case with our hospitalist team for admission is reasonable. Case discussed with Dr. Greco who personally evaluated the patient in the ER and is agreeable to admission. Medical Records Medical records reviewed: Yes I reviewed the patient's medical records. Imaging Data Radiologic Study: Attestation: I personally reviewed and interpreted this imaging study as follows: Imaging: CT Scan Radiologist's impression: PROCEDURE INFORMATION: Exam: CT Head Without Contrast Exam date and time: 02/15/2021 5:16 PM Age: 65 years old Clinical indication: Altered mental status/memory loss; Confusion or disorientation TECHNIQUE: Imaging protocol: Computed tomography of the head without contrast. Radiation optimization: All CT scans at this facility use at least one of these dose optimization techniques: automated exposure control; mA and/or kV adjustment per patient size (includes targeted exams where dose is matched to clinical indication); or iterative reconstruction. COMPARISON: No relevant prior studies available. FINDINGS: Brain: No acute intracranial hemorrhage, mass-effect, midline shift, or extra- axial collection is seen. The mace white matter differentiation appears preserved. There is mild symmetric parenchymal volume loss. Cerebral ventricles: The ventricular system and basilar cisterns appear appropriate in size and configuration given the degree of parenchymal volume loss. Paranasal sinuses: There is patchy mucoperiosteal thickening in the paranasal sinuses, most prominent in the left maxillary sinus, but no air-fluid levels. Mastoid air cells: The mastoid air cells appear well-aerated. Auditory system: The middle ear cavities appear clear. Orbital cavity: The globes and intraorbital structures appear grossly intact. Bones/joints: The bony calvarium appears intact. No depressed skull fracture is seen. Soft tissues: No significant scalp lesion is seen. IMPRESSION: No acute intracranial abnormality seen. JULIA CHEN Preliminary Radiology Report BLUEPRINTING MACHINE OPERATOR (QA) DISCREPANCY? If there is a discrepancy between the preliminary and final interpretation, please notify [facility] via [email or web address]. If you do not have access to our QA portal, call our QA team at [phone] CONFIDENTIALITY STATEMENT This report is intended only for the use of the referring physician, and only in accordance with law, If you received this in error, call [phone] Page 2 of 2 Thank you for allowing us to participate in the care of your patient Radiologic Study #2: Attestation: I personally reviewed and interpreted this imaging study as follows: Imaging: X-Ray Radiologist's impression: PROCEDURE INFORMATION: Exam: XR Chest Exam date and time: 02/15/2021 5:31 PM Age: 65 years old Clinical indication: Other: AMS TECHNIQUE: Imaging protocol: XR of the chest. Views: 1 view. COMPARISON: CT CHEST LUNG CANCER SCREEN 10/15/2020 2:34 PM FINDINGS: Lungs: No pulmonary consolidation is seen. Pleural spaces: No pleural effusion or pneumothorax is demonstrated. Heart/Mediastinum: Heart size is normal. Bones/joints: The visualized bony structures appear grossly intact. There is almost complete loss of the subacromial space at the right shoulder joint suggesting a chronic rotator cuff tear. There are associated osteophytes. IMPRESSION: No active disease is seen in the chest. Thank you for allowing us to participate in the care of your patient. Lab Data Lab results reviewed: Yes I reviewed the patient's lab results. Labs: Laboratory Tests Range/Units 02/15/21 02/15/21 02/15/21 17:26 17:26 17:26 WBC (4.4-10.8) 10^3/uL 9.22 RBC (3.93-5.22) 10^6/uL 4.10 Hgb (11.2-15.7) g/dL 12.4 Hct (36.0-46.0) % 36.0 MCV (80-95) fL 87.8 MCH (27.0-33.0) pg 30.2 MCHC (32.0-36.0) % 34.4 RDW (11.7-14.6) % 11.6 L Plt Count (130-400) 10^3/uL 246 MPV (8.0-11.0) fL 9.6 Immature Gran % 0.5 Neutrophils % 90.4 Lymphocytes % 4.6 Monocytes % 4.1 Eosinophils % 0.2 Basophils % 0.2 Nucleated RBC % % 0 Absolute Neutrophils (1.2-6.7) 10^3/uL 8.33 H Absolute Lymphocytes (1.2-3.4) 10^3/uL 0.42 L Absolute Monocytes (0.1-0.8) 10^3/uL 0.38 Absolute Eosinophils (0.0-0.7) 10^3/uL 0.02 Absolute Basophils (0.0-0.2) 10^3/uL 0.02 VBG Lactate (0.6-1.4) mmol/L Sodium (136-145) mmol/L 132 L Potassium (3.5-5.1) mmol/L 2.5 L* Chloride (98-107) mmol/L 97 L Carbon Dioxide (21.0-32.0) mmol/L 23.2 Anion Gap (3-11) mmol/L 11.8 H BUN (7-18) mg/dL 20 H Creatinine (0.55-1.02) mg/dL 0.7 Estimated GFR/1.73 m2 (mL/min/1.73m2) >= 60.00 Glucose (74-106) mg/dL 159 H Calcium (8.5-10.1) mg/dL 9.6 Magnesium (1.8-2.4) mg/dL 1.5 L Total Bilirubin (0.2-1.0) mg/dL 0.7 AST (15-37) U/L 23 ALT (14-59) U/L 29 Alkaline Phosphatase (46-116) U/L 133 H Creatine Kinase (26-192) U/L Troponin I (<0.06) ng/mL 0.05 Total Protein (6.4-8.2) g/dL 6.4 Albumin (3.4-5.0) g/dL 3.5 TSH (0.36-3.74) uIU/mL 0.30 L Free T4 (0.76-1.46) ng/dL 2.04 H Urine Color (Yellow) Urine Clarity (Clear) Urine pH (5-8) Ur Specific [place] (1.005-1.025) Urine Protein (Negative) mg/dL Urine Ketones (Negative) mg/dL Urine Blood (Negative) Urine Nitrite (Negative) Urine Bilirubin (Negative) Urine Urobilinogen (Up TO 0.2) EU/dL Ur Leukocyte Esterase (Negative) Urine Glucose (Negative) mg/dL Salicylates (<2.8) mg/dL < 2.8 Urine Opiates Screen (Negative) Urine Methadone Screen (Negative) Acetaminophen (10-30) ug/mL < 2 Ur Barbiturates Screen (Negative) Ur Tricyclics Screen (Negative) Ur Amphetamines Screen (Negative) U Benzodiazepines Scrn (Negative) Urine Cocaine Screen (Negative) Ur THC Screen (Negative) Ethyl Alcohol (<10) mg/dL < 3.0 COVID-19 Source SARS-CoV-2 (PCR) (Negative) Range/Units 02/15/21 02/15/21 02/15/21 17:53 17:53 18:15 WBC (4.4-10.8) 10^3/uL RBC (3.93-5.22) 10^6/uL Hgb (11.2-15.7) g/dL Hct (36.0-46.0) % MCV (80-95) fL MCH (27.0-33.0) pg MCHC (32.0-36.0) % RDW (11.7-14.6) % Plt Count (130-400) 10^3/uL MPV (8.0-11.0) fL Immature Gran % Neutrophils % Lymphocytes % Monocytes % Eosinophils % Basophils % Nucleated RBC % % Absolute Neutrophils (1.2-6.7) 10^3/uL Absolute Lymphocytes (1.2-3.4) 10^3/uL Absolute Monocytes (0.1-0.8) 10^3/uL Absolute Eosinophils (0.0-0.7) 10^3/uL Absolute Basophils (0.0-0.2) 10^3/uL VBG Lactate (0.6-1.4) mmol/L Sodium (136-145) mmol/L Potassium (3.5-5.1) mmol/L Chloride (98-107) mmol/L Carbon Dioxide (21.0-32.0) mmol/L Anion Gap (3-11) mmol/L BUN (7-18) mg/dL Creatinine (0.55-1.02) mg/dL Estimated GFR/1.73 m2 (mL/min/1.73m2) Glucose (74-106) mg/dL Calcium (8.5-10.1) mg/dL Magnesium (1.8-2.4) mg/dL Total Bilirubin (0.2-1.0) mg/dL AST (15-37) U/L ALT (14-59) U/L Alkaline Phosphatase (46-116) U/L Creatine Kinase (26-192) U/L Troponin I (<0.06) ng/mL Total Protein (6.4-8.2) g/dL Albumin (3.4-5.0) g/dL TSH (0.36-3.74) uIU/mL Free T4 (0.76-1.46) ng/dL Urine Color (Yellow) Yellow Urine Clarity (Clear) Clear Urine pH (5-8) 6.0 Ur Specific [place] (1.005-1.025) 1.025 Urine Protein (Negative) mg/dL Negative Urine Ketones (Negative) mg/dL 40 H Urine Blood (Negative) Negative Urine Nitrite (Negative) Negative Urine Bilirubin (Negative) Small H Urine Urobilinogen (Up TO 0.2) EU/dL 1.0 H Ur Leukocyte Esterase (Negative) Negative Urine Glucose (Negative) mg/dL Negative Salicylates (<2.8) mg/dL Urine Opiates Screen (Negative) Negative Urine Methadone Screen (Negative) Negative Acetaminophen (10-30) ug/mL Ur Barbiturates Screen (Negative) Negative Ur Tricyclics Screen (Negative) Negative Ur Amphetamines Screen (Negative) Negative U Benzodiazepines Scrn (Negative) Negative Urine Cocaine Screen (Negative) Negative Ur THC Screen (Negative) Negative Ethyl Alcohol (<10) mg/dL COVID-19 Source Nasal/Nares SARS-CoV-2 (PCR) (Negative) Negative Range/Units 02/15/21 02/15/21 02/15/21 19:54 19:54 19:54 WBC (4.4-10.8) 10^3/uL RBC (3.93-5.22) 10^6/uL Hgb (11.2-15.7) g/dL Hct (36.0-46.0) % MCV (80-95) fL MCH (27.0-33.0) pg MCHC (32.0-36.0) % RDW (11.7-14.6) % Plt Count (130-400) 10^3/uL MPV (8.0-11.0) fL Immature Gran % Neutrophils % Lymphocytes % Monocytes % Eosinophils % Basophils % Nucleated RBC % % Absolute Neutrophils (1.2-6.7) 10^3/uL Absolute Lymphocytes (1.2-3.4) 10^3/uL Absolute Monocytes (0.1-0.8) 10^3/uL Absolute Eosinophils (0.0-0.7) 10^3/uL Absolute Basophils (0.0-0.2) 10^3/uL VBG Lactate (0.6-1.4) mmol/L 1.0 Sodium (136-145) mmol/L Potassium (3.5-5.1) mmol/L Chloride (98-107) mmol/L Carbon Dioxide (21.0-32.0) mmol/L Anion Gap (3-11) mmol/L BUN (7-18) mg/dL Creatinine (0.55-1.02) mg/dL Estimated GFR/1.73 m2 (mL/min/1.73m2) Glucose (74-106) mg/dL Calcium (8.5-10.1) mg/dL Magnesium (1.8-2.4) mg/dL Total Bilirubin (0.2-1.0) mg/dL AST (15-37) U/L ALT (14-59) U/L Alkaline Phosphatase (46-116) U/L Creatine Kinase (26-192) U/L 270 H Troponin I (<0.06) ng/mL 0.29 H* Total Protein (6.4-8.2) g/dL Albumin (3.4-5.0) g/dL TSH (0.36-3.74) uIU/mL Free T4 (0.76-1.46) ng/dL Urine Color (Yellow) Urine Clarity (Clear) Urine pH (5-8) Ur Specific [place] (1.005-1.025) Urine Protein (Negative) mg/dL Urine Ketones (Negative) mg/dL Urine Blood (Negative) Urine Nitrite (Negative) Urine Bilirubin (Negative) Urine Urobilinogen (Up TO 0.2) EU/dL Ur Leukocyte Esterase (Negative) Urine Glucose (Negative) mg/dL Salicylates (<2.8) mg/dL Urine Opiates Screen (Negative) Urine Methadone Screen (Negative) Acetaminophen (10-30) ug/mL Ur Barbiturates Screen (Negative) Ur Tricyclics Screen (Negative) Ur Amphetamines Screen (Negative) U Benzodiazepines Scrn (Negative) Urine Cocaine Screen (Negative) Ur THC Screen (Negative) Ethyl Alcohol (<10) mg/dL COVID-19 Source SARS-CoV-2 (PCR) (Negative) ECG Data Attestation: I personally reviewed and interpreted this ECG (s) as follows: Interpretation: Please see official report by Dr. Jones. Sinus rhythm, ventricular rate of 99, no STEMI HPI General Mode of arrival: ambulatory . Date/Time Provider Initiated Documentation: 02/15/21 16:57 . Limitations to Documentation: altered mental status . Information obtained by: patient (Friend) . HPI Narrative: This is a 65-year- old female, past medical history that includes hypothyroidism, osteoarthritis, schizoaffective disorder, who presents to the ER today with her friend for evaluation of altered mental status, depression, possible overdose. Patient's friend reports that she is typically awake and alert, oriented x3, cares for herself. She states that she recently went back to work and was a big support system of the patient, and the patient seems to be deteriorating over the past couple of weeks. It would appear as though she has been noncompliant with all of her medications for at least 2 weeks, filled them yesterday, and patient reports that she may have accidentally taken an extra pill or 2. She admits to depression but denies any suicidal ideation. Patient states that she does not want to hurt herself. Depression is chronic but worsening. She denies recent illness or trauma. The patient's friend confirms that she does not believe that the patient is ever been suicidal, she was able to speak with her sister on the phone, and her sister states that she would be extremely surprised if this was an attempt to harm herself. Unfortunately patient is rather vague and poor historian. Her only complaint now is that of mild chronic low back pain. She denies headache, visual changes, neck pain, chest pain, shortness of breath abdominal pain, nausea or vomiting, dysuria, numbness, tingling, weakness. After doing a med count, it would appear as though the patient may have taken an extra 2 tablets of 100 mg clozapine and and 2 tablets of 100 mg sustainted release bupropion hcl. Friend is concerned that with her noncompliance and altered mental status that she is not safe to go home in her current condition as she does live at home alone. Related Data Home Medications Medication Instructions Recorded Confirmed clozapine 100 mg PO HS 09/05/13 02/15/21 lorazepam 0.5 mg PO TID PRN 11/16/16 02/15/21 cyclosporine 0.05 % eye drops 1 drp OP Q12H #5.5 ml 01/24/19 02/15/21 diphenhydramine 25 1 tab PO QHS PRN 02/16/19 02/15/21 mg-acetaminophen 500 mg tablet acetylcysteine 600 mg capsule 1,200 mg PO BID cap 05/04/19 02/15/21 mupirocin 2 % topical ointment 1 applic TOPICAL BID PRN #22 gm 05/04/19 02/15/21 loperamide 2 mg tablet 2 mg PO Q4H PRN #30 tab 06/08/19 02/15/21 loperamide 2 mg capsule 2 mg PO Q8H PRN #90 tab-cap 11/14/19 02/15/21 bupropion HCl 100 mg tablet,12 hr 100 mg PO QAM tab 02/15/20 02/15/21 sustained-release psyllium husk 0.52 gram capsule 0.52 g PO DAILY #100 cap 02/18/20 02/15/21 calcium carbonate-vitamin D3 600 1 tab PO DAILY #90 tab 05/23/20 02/15/21 mg(1,500 mg)-400 unit chewable tablet multivitamin with iron 1 tab PO DAILY #90 tab 05/29/20 02/15/21 omega-3 fatty acids 1,000 mg 1,000 mg PO BID cap 08/18/20 02/15/21 capsule ascorbic acid (vitamin C) 1,000 mg 1 g PO BID tab 08/27/20 02/15/21 tablet famotidine 40 mg tablet 40 mg PO DAILY #90 tab-cap 08/27/20 02/15/21 tolterodine 1 mg tablet 1 mg PO HS #90 tab-cap 08/27/20 02/15/21 ibuprofen 600 mg tablet 600 mg PO Q8H PRN #90 tab 11/10/20 02/15/21 loratadine 10 mg tablet 10 mg PO DAILY #90 tab-cap 11/27/20 02/15/21 melatonin 3 mg capsule 3 mg PO HS PRN 12/16/20 02/15/21 levothyroxine 88 mcg tablet 88 mcg PO DAILY #90 tab 01/06/21 02/15/21 acetylcysteine [NAC] 1,200 mg PO BID 02/15/21 02/15/21 Previous Rx's Medication Instructions Recorded cyclosporine 0.05 % eye drops 1 drp OP Q12H #5.5 ml 01/24/19 mupirocin 2 % topical ointment 1 applic TOPICAL BID PRN #22 gm 05/04/19 loperamide 2 mg tablet 2 mg PO Q4H PRN #30 tab 06/08/19 loperamide 2 mg capsule 2 mg PO Q8H PRN #90 tab-cap 11/14/19 psyllium husk 0.52 gram capsule 0.52 g PO DAILY #100 cap 02/18/20 calcium carbonate-vitamin D3 600 1 tab PO DAILY #90 tab 05/23/20 mg(1,500 mg)-400 unit chewable tablet multivitamin with iron 1 tab PO DAILY #90 tab 05/29/20 famotidine 40 mg tablet 40 mg PO DAILY #90 tab-cap 08/27/20 tolterodine 1 mg tablet 1 mg PO HS #90 tab-cap 08/27/20 ibuprofen 600 mg tablet 600 mg PO Q8H PRN #90 tab 11/10/20 loratadine 10 mg tablet 10 mg PO DAILY #90 tab-cap 11/27/20 levothyroxine 88 mcg tablet 88 mcg PO DAILY #90 tab 01/06/21 Allergies Allergy/AdvReac Type Severity Reaction Status Date / Time chlorpheniramine Allergy Verified 02/15/21 16:57 erythromycin base Allergy Verified 02/15/21 16:57 Penicillins Allergy Verified 02/15/21 16:57 General Stated Complaint: AMS/LOC JESSICA: 2 Review of Systems Constitutional Constitutional: Denies fever(s) and Denies headache(s) Eyes Eyes: Denies change in vision ENT Ears, Nose, Mouth, and Throat: Denies headache(s) and Denies neck pain Cardiovascular Cardiovascular: Denies chest pain and Denies dyspnea Respiratory Respiratory: Denies cough and Denies dyspnea Gastrointestinal Gastrointestinal: Denies abdominal pain, Denies nausea and Denies vomiting Genitourinary Genitourinary: Denies dysuria Musculoskeletal Musculoskeletal: Reports back pain and Denies neck pain Integumentary/Breasts Skin/Breast: Denies rash Neurologic Neurologic: Denies headache(s) Psychiatric Psychiatric: Reports depression and Denies suicidal ideation [facility] Medical History Bilateral knee pain Chronic diarrhea Degenerative joint disease of left hip Degenerative joint disease of right hip Folliculitis GERD (gastroesophageal reflux disease) Hip pain, right Hx MRSA infection Hx of malignant neoplasm of vagina Hypothyroidism Left knee DJD Most recent injection: 08/18/20; 03/31/2020 Leg swelling Osteoarthritis Schizoaffective disorder Urge urinary incontinence Surgical History Colonoscopy - MAC (01/12/11) Colonoscopy - MAC (02/14/17) Social History Smoking/Tobacco Use Status: Current every day Smoking risk assessment performed?: Yes Drug use: Never Do you feel safe at home: Yes Additional Social history: pts neighbor is observant of her and is here with her Exam Const General: cooperative, healthy appearing and no acute distress Orientation: alert, awake, oriented to person and oriented to place HENVA Head: normal to inspection, normocephalic and atraumatic Face and sinus: normal facial exam Mouth: moist mucous membranes abnormal (Slightly dry) Eyes General: appearance normal, both eyes and all related structures Conjunctivae: conjunctivae normal Neck Neck: normal visual inspection, full ROM, no meningeal signs, trachea midline and supple Resp Effort & Inspection: normal respiratory effort and able to speak in complete sentences Auscultation: clear to auscultation bilaterally Cardio Rate: regular rate Rhythm: regular rhythm GI Inspection: normal to inspection Palpation: not firm, no guarding, no pulsatile masses and nontender Auscultation: normal bowel sounds Back/Spine/Pelvis Back: No back tenderness Skin General skin exam: no rashes or lesions noted Neuro General: patient alert, patient awake, oriented Patient Orientation: Person and Place, moves all extremities and no focal motor deficits Cognition: normal cognition Speech: speech normal Gait: normal gait Motor: muscle tone normal throughout Sensory Exam: no sensory deficits noted Extrem General: normal to inspection, full ROM and capillary refill normal Psych Appearance: grossly normal Mental Status: mental status grossly normal Course Vital Signs Vital signs: Vital Signs Temperature 36.4 C L 02/15/21 16:51 Pulse 122 H 02/15/21 16:51 Blood Pressure 135/101 H 02/15/21 16:51 Pulse Oximetry 98 02/15/21 16:51 Temperature 36.4 C L 02/15/21 16:51 Temperature Source Temporal Artery Scan 02/15/21 16:51 Pulse 122 H 02/15/21 16:51 Blood Pressure 135/101 H 02/15/21 16:51 Pulse Oximetry 98 02/15/21 16:51 Oxygen Delivery Method Room Air 02/15/21 16:51 Oxygen Flow Rate 0 02/15/21 16:51 Critical Care Time Critical Care Time Critical Care Time: Yes Total Critical Care Time: 35 Attestation: Upon my evaluation, this patient had a high probability of clinically significant, life-threatening deterioration due to their current medical conditions, which required my direct attention, intervention, and personal management. I have personally provided greater than 30 minutes of critical care time exclusive of the time spend on separately billable procedure s. Time includes obtaining a history, examining the patient, pulse oximetry, review of laboratory data, radiology results, discussion with consultants, arranging urgent treatment with development of a management plan, evaluation of patient's response to treatment, and monitoring for potential decompensation. Interventions were performed as documented above.
[2021-02-15 17:40] LABS: Abs Immature Grans 0.05 10^3/uL (0.0-0.06); Absolute Basophil Count 0.02 10^3/uL (0.0-0.2); Absolute Eosinophil Count 0.02 10^3/uL (0.0-0.7); Absolute Lymphocyte Count 0.42 10^3/uL (1.2-3.4); Absolute Monocyte Count 0.38 10^3/uL (0.1-0.8); Absolute Neutrophil Count 8.33 10^3/uL (1.2-6.7); Basophils % 0.2; Eosinophils % 0.2; HGB 12.4 g/dL (11.2-15.7); Immature Grans % 0.5; Lymphocytes % 4.6; MCH 30.2 pg (27.0-33.0); MCHC 34.4 % (32.0-36.0); MCV 87.8 fL (80-95); MPV 9.6 fL (8.0-11.0); Monocytes % 4.1; Neutrophils % 90.4; Nucleated RBC 0 %; Platelet Count 246 10^3/uL (130-400); RDW 11.6 % (11.7-14.6); WBC 9.22 10^3/uL (4.4-10.8)
[2021-02-15 18:01] LABS: ALT 29 U/L (14-59); AST 23 U/L (15-37); Albumin 3.5 g/dL (3.4-5.0); Alkaline Phosphatase 133 U/L (46-116); Anion Gap 11.8 mmol/L (3-11); BUN 20 mg/dL (7-18); Bilirubin, Total 0.7 mg/dL (0.2-1.0); CO2 23.2 mmol/L (21.0-32.0); CREATININE 0.7 mg/dL (0.55-1.02); Calcium 9.6 mg/dL (8.5-10.1); Chloride 97 mmol/L (98-107); Glucose 159 mg/dL (74-106); Magnesium 1.5 mg/dL (1.8-2.4); Sodium 132 mmol/L (136-145); Total Protein 6.4 g/dL (6.4-8.2); Troponin I 0.05 ng/mL (<0.06)
[2021-02-15] MEDS: Normal Saline 1,000 ML 1000 ML IV ×2 (18:02→19:30)
[2021-02-15 18:04] LABS: Potassium 2.5 mmol/L (3.5-5.1)
[2021-02-15 18:05] LABS: Salicylate < 2.8 mg/dL (<2.8)
--- NOTE | 2021-02-15 18:06 | DI.VRAD_ITS ---
PROCEDURE INFORMATION: Exam: CT Head Without Contrast Exam date and time: 02/15/2021 5:16 PM Age: 65 years old Clinical indication: Altered mental status/memory loss; Confusion or disorientation TECHNIQUE: Imaging protocol: Computed tomography of the head without contrast. Radiation optimization: All CT scans at this facility use at least one of these dose optimization techniques: automated exposure control; mA and/or kV adjustment per patient size (includes targeted exams where dose is matched to clinical indication); or iterative reconstruction. COMPARISON: No relevant prior studies available. FINDINGS: Brain: No acute intracranial hemorrhage, mass-effect, midline shift, or extra-axial collection is seen. The mace white matter differentiation appears preserved. There is mild symmetric parenchymal volume loss. Cerebral ventricles: The ventricular system and basilar cisterns appear appropriate in size and configuration given the degree of parenchymal volume loss. Paranasal sinuses: There is patchy mucoperiosteal thickening in the paranasal sinuses, most prominent in the left maxillary sinus, but no air-fluid levels. Mastoid air cells: The mastoid air cells appear well-aerated. Auditory system: The middle ear cavities appear clear. Orbital cavity: The globes and intraorbital structures appear grossly intact. Bones/joints: The bony calvarium appears intact. No depressed skull fracture is seen. Soft tissues: No significant scalp lesion is seen. IMPRESSION: No acute intracranial abnormality seen. Dictated and Authenticated by: Dev Vizcarra MD. Ordering:STEVEN Puckett MD
[2021-02-15 18:07] LABS: Acetaminophen < 2 ug/mL (10-30)
--- NOTE | 2021-02-15 18:08 | DI.VRAD_ITS ---
PROCEDURE INFORMATION: Exam: XR Chest Exam date and time: 02/15/2021 5:31 PM Age: 65 years old Clinical indication: Other: AMS TECHNIQUE: Imaging protocol: XR of the chest. Views: 1 view. COMPARISON: CT CHEST LUNG CANCER SCREEN 10/15/2020 2:34 PM FINDINGS: Lungs: No pulmonary consolidation is seen. Pleural spaces: No pleural effusion or pneumothorax is demonstrated. Heart/Mediastinum: Heart size is normal. Bones/joints: The visualized bony structures appear grossly intact. There is almost complete loss of the subacromial space at the right shoulder joint suggesting a chronic rotator cuff tear. There are associated osteophytes. IMPRESSION: No active disease is seen in the chest. Dictated and Authenticated by: Dev Vizcarra MD. Ordering:STEVEN Puckett MD
[2021-02-15 18:17] LABS: ETHANOL BLOOD < 3.0 mg/dL (<10)
[2021-02-15 18:23] LABS: Bilirubin Small (Negative); Blood Negative (Negative); Clarity Clear (Clear); Glucose Negative (Negative); Ketones 40 mg/dL (Negative); Leukocyte Esterase Negative (Negative); Nitrite Negative (Negative); Specific Gravity 1.025 (1.005-1.025)
[2021-02-15 18:26] LABS: FREE T4 2.04 ng/dL (0.76-1.46)
[2021-02-15] MEDS: Potassium Chloride 20 MEQ TABCR 40 MEQ PO (18:30)
[2021-02-15] MEDS: POTASSIUM CHLORIDE 10 MEQ/100 ML BAG 100 MEQ IVPB (18:31)
[2021-02-15 18:38] LABS: *AMPHETAMINES SCREEN URINE Negative (Negative); *BARBITURATES SCREEN URINE Negative (Negative); *BENZODIAZEPINES SCREEN URINE Negative (Negative); Cannabinoids THC Negative (Negative); Cocaine Screen,Urine Negative (Negative); METHADONE URINE SCREEN Negative (Negative); OPIATES URINE SCREEN Negative (Negative)
[2021-02-15 18:45] LABS: Source Nasal/Nares; Tricyclic Antidepressants Negative (Negative)
[2021-02-15 19:01] LABS: COVID-19 PCR Negative (Negative)
--- NOTE | 2021-02-15 19:05 | NUR.NOTE ---
pts neighbor deliverd three meds to the pt s house yesterday from the pharmacy clozopine 100 mg ( three tabs misssing ) Bupropione SR 150 mg ( 4 tabs missing ) no pills taked from the third vialNursing Note:
[2021-02-15] MEDS: MAGNESIUM SULFATE 1 GM/100 ML BAG IVPB (19:39)
--- NOTE | 2021-02-15 20:15 | RT.EKG_ITS ---
APPROVED REPORT Exam: Resting ECG Reason for Exam: elevated trop Patient Location: E HR:96 bpm ECG Measurements Heart Rate 96 AXIS LA 182 P 77 QRSd 93 QRS 69 QT 372 T 58 QTc 471 Conclusion Sinus rhythm...normal P axis, V-rate 60- 99 Left atrial enlargement...P, P'>60mS, <-0.15mV V1
[2021-02-15 20:22] LABS: Troponin I 0.29 ng/mL (<0.06)
[2021-02-15 20:41] LABS: Creatine Kinase 270 U/L (26-192)
--- NOTE | 2021-02-15 20:46 | W.PM.HP.N ---
Date of service: 02/15/21 Time of Service: 20:46 Assessment and Plan Assessment and plan (1) Lethargy: Status: Acute Assessment and plan: Several issues, not clear if and how may all relate. Firstly, it does seem that her mental status may in fact be, or have been, a matter of an unintentional drug OD. Clinically, in any case, this seems to be resolving. Otherwise, I cannot explain the electrolyte deficiencies at present but will replenish and trend. Lastly the troponin is unexpected and does not seem to correlate with her clinical status, unsure significance, but will trend out. Does not seem to be an underlying condition to indicate type 2 ischemia so may be silent NSTEMI. Will give ASA/Plavix provisionally, further w/u as indicated. History of Present Illness History of Present Illness Chief Complaint: lethargy Narrative: 65 female with h/o schizoaffective disorder. Has apparently not been taking her meds for some two weeks, then got meds filled yesterday. Today her friend noted her to be less alert than usual, staying in bed through the day and brought her in for evaluation. Friend stated that she thought patient may have taken an extra dose of Clozapine or Bruprion, and indeed here in ER pill counts suggest one dose of each is missing. At any rate patient was noted to be somewhat somnolent and unfocussed. Findings of note normal white count, Na 132, K 2.5, Mg 1.5, trop 0.05 but second trop 0.29, with normal EKG and no change with repeat. UDS is negative. While here in ER patient has been noted to become progressively more alert and communicative. Has received Mg 1 gram IV, KCL 40 PO and 10 IV. At present time patient states she has no specific complaints. I was asked to evaluate for admission. Review of Systems All systems reviewed & are unremarkable except as noted in HPI and below PFSH Medical History Bilateral knee pain Chronic diarrhea Degenerative joint disease of left hip Degenerative joint disease of right hip Folliculitis GERD (gastroesophageal reflux disease) Hip pain, right Hx MRSA infection Hx of malignant neoplasm of vagina Hypothyroidism Left knee DJD Most recent injection: 08/18/20; 03/31/2020 Leg swelling Osteoarthritis Schizoaffective disorder Urge urinary incontinence Surgical History Colonoscopy - MAC (01/12/11) Colonoscopy - MAC (02/14/17) Social History Smoking/Tobacco Use Status: Current every day Smoking risk assessment performed?: Yes Drug use: Never Do you feel safe at home: Yes Additional Social history: pts neighbor is observant of her and is here with her Meds Allergies and Home Medications Allergies Allergy/AdvReac Type Severity Reaction Status Date / Time chlorpheniramine Allergy Verified 02/15/21 16:57 erythromycin base Allergy Verified 02/15/21 16:57 Penicillins Allergy Verified 02/15/21 16:57 Home Medications Medication Instructions Recorded Confirmed Type clozapine 100 mg PO HS 09/05/13 02/15/21 History lorazepam 0.5 mg PO TID PRN 11/16/16 02/15/21 History cyclosporine 0.05 % eye drops 1 drp OP Q12H #5.5 ml 01/24/19 02/15/21 Rx diphenhydramine 25 1 tab PO QHS PRN 02/16/19 02/15/21 History mg-acetaminophen 500 mg tablet acetylcysteine 600 mg capsule 1,200 mg PO BID cap 05/04/19 02/15/21 History mupirocin 2 % topical ointment 1 applic TOPICAL BID PRN #22 gm 05/04/19 02/15/21 Rx loperamide 2 mg tablet 2 mg PO Q4H PRN #30 tab 06/08/19 02/15/21 Rx loperamide 2 mg capsule 2 mg PO Q8H PRN #90 tab-cap 11/14/19 02/15/21 Rx bupropion HCl 100 mg tablet,12 hr 100 mg PO QAM tab 02/15/20 02/15/21 History sustained-release psyllium husk 0.52 gram capsule 0.52 g PO DAILY #100 cap 02/18/20 02/15/21 Rx calcium carbonate-vitamin D3 600 1 tab PO DAILY #90 tab 05/23/20 02/15/21 Rx mg(1,500 mg)-400 unit chewable tablet multivitamin with iron 1 tab PO DAILY #90 tab 05/29/20 02/15/21 Rx omega-3 fatty acids 1,000 mg 1,000 mg PO BID cap 08/18/20 02/15/21 History capsule ascorbic acid (vitamin C) 1,000 mg 1 g PO BID tab 08/27/20 02/15/21 History tablet famotidine 40 mg tablet 40 mg PO DAILY #90 tab-cap 08/27/20 02/15/21 Rx tolterodine 1 mg tablet 1 mg PO HS #90 tab-cap 08/27/20 02/15/21 Rx ibuprofen 600 mg tablet 600 mg PO Q8H PRN #90 tab 11/10/20 02/15/21 Rx loratadine 10 mg tablet 10 mg PO DAILY #90 tab-cap 11/27/20 02/15/21 Rx melatonin 3 mg capsule 3 mg PO HS PRN 12/16/20 02/15/21 History levothyroxine 88 mcg tablet 88 mcg PO DAILY #90 tab 01/06/21 02/15/21 Rx acetylcysteine [NAC] 1,200 mg PO BID 02/15/21 02/15/21 History Exam Narrative Exam Narrative: 141/89, 98, 36.6, 23, 99% RA. HEENT atraumatic; neck supple; lungs clear; heart RRR; abdomen soft and NT; extremities w/o edema; neuro Ox3, conversation intermittently coherent, or perhaps is just sometimes hard to follow, pupils 1mm, no facial asymmetry, moves all 4s Results Labs Result diagrams: 02/15/21 17:26 02/15/21 17:26 Labs: Laboratory Results - last 24 hr 02/15/21 02/15/21 02/15/21 17:26 17:26 17:26 WBC 9.22 RBC 4.10 Hgb 12.4 Hct 36.0 MCV 87.8 MCH 30.2 MCHC 34.4 RDW 11.6 L Plt Count 246 MPV 9.6 Immature Gran % 0.5 Neutrophils % 90.4 Lymphocytes % 4.6 Monocytes % 4.1 Eosinophils % 0.2 Basophils % 0.2 Nucleated RBC % 0 Absolute Neutrophils 8.33 H Absolute Lymphocytes 0.42 L Absolute Monocytes 0.38 Absolute Eosinophils 0.02 Absolute Basophils 0.02 VBG Lactate Sodium 132 L Potassium 2.5 L* Chloride 97 L Carbon Dioxide 23.2 Anion Gap 11.8 H BUN 20 H Creatinine 0.7 Estimated GFR/1.73 m2 >= 60.00 Glucose 159 H Calcium 9.6 Magnesium 1.5 L Total Bilirubin 0.7 AST 23 ALT 29 Alkaline Phosphatase 133 H Creatine Kinase Troponin I 0.05 Total Protein 6.4 Albumin 3.5 TSH 0.30 L Free T4 2.04 H Urine Color Urine Clarity Urine pH Ur Specific [place] Urine Protein Urine Ketones Urine Blood Urine Nitrite Urine Bilirubin Urine Urobilinogen Ur Leukocyte Esterase Urine Glucose Salicylates < 2.8 Urine Opiates Screen Urine Methadone Screen Acetaminophen < 2 Ur Barbiturates Screen Ur Tricyclics Screen Ur Amphetamines Screen U Benzodiazepines Scrn Urine Cocaine Screen Ur THC Screen Ethyl Alcohol < 3.0 COVID-19 Source SARS-CoV-2 (PCR) 02/15/21 02/15/21 02/15/21 17:53 17:53 18:15 WBC RBC Hgb Hct MCV MCH MCHC RDW Plt Count MPV Immature Gran % Neutrophils % Lymphocytes % Monocytes % Eosinophils % Basophils % Nucleated RBC % Absolute Neutrophils Absolute Lymphocytes Absolute Monocytes Absolute Eosinophils Absolute Basophils VBG Lactate Sodium Potassium Chloride Carbon Dioxide Anion Gap BUN Creatinine Estimated GFR/1.73 m2 Glucose Calcium Magnesium Total Bilirubin AST ALT Alkaline Phosphatase Creatine Kinase Troponin I Total Protein Albumin TSH Free T4 Urine Color Yellow Urine Clarity Clear Urine pH 6.0 Ur Specific [place] 1.025 Urine Protein Negative Urine Ketones 40 H Urine Blood Negative Urine Nitrite Negative Urine Bilirubin Small H Urine Urobilinogen 1.0 H Ur Leukocyte Esterase Negative Urine Glucose Negative Salicylates Urine Opiates Screen Negative Urine Methadone Screen Negative Acetaminophen Ur Barbiturates Screen Negative Ur Tricyclics Screen Negative Ur Amphetamines Screen Negative U Benzodiazepines Scrn Negative Urine Cocaine Screen Negative Ur THC Screen Negative Ethyl Alcohol COVID-19 Source Nasal/Nares SARS-CoV-2 (PCR) Negative 02/15/21 02/15/21 02/15/21 19:54 19:54 19:54 WBC RBC Hgb Hct MCV MCH MCHC RDW Plt Count MPV Immature Gran % Neutrophils % Lymphocytes % Monocytes % Eosinophils % Basophils % Nucleated RBC % Absolute Neutrophils Absolute Lymphocytes Absolute Monocytes Absolute Eosinophils Absolute Basophils VBG Lactate 1.0 Sodium Potassium Chloride Carbon Dioxide Anion Gap BUN Creatinine Estimated GFR/1.73 m2 Glucose Calcium Magnesium Total Bilirubin AST ALT Alkaline Phosphatase Creatine Kinase 270 H Troponin I 0.29 H* Total Protein Albumin TSH Free T4 Urine Color Urine Clarity Urine pH Ur Specific [place] Urine Protein Urine Ketones Urine Blood Urine Nitrite Urine Bilirubin Urine Urobilinogen Ur Leukocyte Esterase Urine Glucose Salicylates Urine Opiates Screen Urine Methadone Screen Acetaminophen Ur Barbiturates Screen Ur Tricyclics Screen Ur Amphetamines Screen U Benzodiazepines Scrn Urine Cocaine Screen Ur THC Screen Ethyl Alcohol COVID-19 Source SARS-CoV-2 (PCR) Last Vital Signs Temp 36.6 C 02/15/21 20:21 Pulse 98 H 02/15/21 20:21 Resp 23 02/15/21 20:21 BP 141/89 H 02/15/21 20:21 Pulse Ox 99 02/15/21 20:21
[2021-02-15] MEDS: Aspirin 325 MG TAB PO (21:57)
[2021-02-15] MEDS: Clopidogrel 300 MG TAB PO (21:58)
[2021-02-15 22:29] LABS: PTT Activated 24.8 sec (21.0-27.5)
[2021-02-15] MEDS: POTASSIUM CHLORIDE/0.9% NACL 1,000 ML 100 MEQ IV (22:35)
[2021-02-15] MEDS: Normal Saline Flush 10 ML SYR (22:40)
[2021-02-15 23:20] LABS: Troponin I 0.46 ng/mL (<0.06)
[2021-02-16] VITALS (52 sets, daily range): BP systolic 107–205; BP diastolic 68–186; PULSE 76–116; RESP 12–38; TEMP 35.2–36.5; O2SAT 96–100
--- NOTE | 2021-02-16 | DI.RAD_ITS ---
Exam(s) XR PELVIS AP EXAM: XR PELVIS AP CLINICAL HISTORY: Fall, right hip pain. TECHNIQUE: 2D digital imaging was performed. COMPARISON: CR XR HIP RT COMPLETE AP PELVIS from 03/31/2020 FINDINGS: There are no fractures. Again noted is severe advanced osteoarthritic narrowing the right hip joint space with [id number] apposition superiorly and degenerative subarticular cysts, similar previous s tudy but mild further advancement. Moderate degenerative changes are noted in the opposite-left hip, also unchanged. Sacroiliac joints appear unremarkable IMPRESSION: Severe advanced degenerative changes in the right hip again noted. DATA REPOSITORY: RADIATION DOSE DELIVERED:
--- NOTE | 2021-02-16 | DI.US_ITS ---
APPROVED REPORT EXAM: Comprehensive 2D, Doppler, and color-flow Echocardiogram Patient Location: In-Patient Room/Bed: [id number] [facility] Operator: Shelia Bay RDCS (AE) Indications: NSTEMI Other Information Study Quality: Fair. Technically limited study due to inability to position patient, body habitus. Conclusion Normal left ventricular wall thickness and chamber size. Estimated ejection fraction is 65%. Wall m otion is normal Right ventricle appears normal in size and systolic function Borderline dilated left atrium. Right atrium is normal in size There is no structural or hemodynamically significant valvular disease Wall motion Left Ventricle The left ventricle is normal size. The left ventricular systolic function is normal. The left ventric ular ejection fraction is within the normal range. There is normal left ventricular wall thickness. T here is normal LV segmental wall motion. There is no ventricular septal defect visualized. LVEF is 65 %. Right Ventricle Right ventricle is grossly normal in size. Right ventricular systolic function is grossly normal. Atria Left atrium is borderline dilated. The right atrium size is normal. The interatrial septum is intact with no evidence for an atrial septal defect. Aortic Valve The aortic valve is normal in structure. Aortic valve is trileaflet. There is no aortic valvular sten osis. No aortic regurgitation is present. Mitral Valve The mitral valve is normal in structure. No evidence of mitral valve stenosis. Trace mitral regurgita tion. Tricuspid Valve The tricuspid valve is normal in structure. There is no tricuspid valve stenosis. Trace tricuspid reg urgitation. Unable to assess PA pressure. Pulmonic Valve The pulmonary valve is normal in structure. There is no pulmonic valvular stenosis. There is no pulmo lani valvular regurgitation. Great Vessels The aortic root is normal in size. The ascending aorta is normal in size. Aortic arch is not well vis ualized. IVC is normal in size and collapses >50% with inspiration. Pericardium There is no pericardial effusion. 2D Dimensions IVSD d PLAX 1.01 cm F: 0.6-1.0 LV Vol A2C d MOD 128.1 mL LVPW d PLAX 1.01 cm F: 0.6 - 1.0 LV Vol A4C d MOD 112.4 mL LVID d PLAX 4.44 cm F: 3.8 - 5.2 LA vol/ BSA A2C s A-L 45.6 mL/m2 LVDs 3.15 cm F: 2.2 - 3.5 LA vol/ BSA A4C s A-L 16.2 mL/m2 Ao Root d 2.77 cm F: 2.7 - 3.3 LA Vol/ BSA Biplane s A-L 29.3 mL/m2 RA Area A4C 9.88 cm2 LA Area A4C s MOD 12.91 cm2 RA Vol/ BSA A4C s A-L 11.6 mL/m2 LA Area A2C s MOD 23.36 cm2 Ao Asc Diam d 3.19 cm F: 2.3 - 3.1 LV EF A4C MOD 57.6 % LV EF Teichholz 54.4 % LV EF A2C MOD 55.2 % LVEF (Tinsley's) 57.57 % F: 54 - 74 LV EF Biplane MOD 57.6 % LV Volume 98.26 mL F: 46 - 106 SV 72.14 mL LV Volume Index 55.82 mL/m2 F: 29 - 61 SV Index 40.99 mL/m2 LV Vol Biplane MOD 125.3 mL FS 27.95 % M-Mode TAPSE 2.63 cm (M/F) >1.7 LV Diastology MV E' medial 0.098 (>0.07 m/s) E/A Ratio 0.8 LV E/e MED 7.80 (<14) MV E Vmax 0.76 (0.4-1.3 m/s) MV E' lateral 0.117 (>0.1 m/s) MV A Vmax 1.00 (0.4-1.3 m/s) LV E/e LAT 6.50 (<14) MV E/A Ratio 0.76 MV E/E' medial 7.80 MV E/E' lateral 6.50 Aortic Valve LVOT Area 3.20 cm2 AoV Area Vmax 2.95 cm2 LVOT Vmax 1.34 m/s AoV Area/ BSA (Vmax) 1.67 cm2/m2 LVOT Mean Xavier. 0.97 m/s KATHIE Mean Xavier. 2.77 cm2 LVOT Peak Grad 7.2 mmHg KATHIE Mean Xavier. Index 1.57 cm2/m2 LVOT Mean Grad 4.3 mmHg LVOT VTI 0.277 m LVOT Diam s 2.00 cm AoV Vmax 1.45 m/s Velocity Ratio 0.92 AoV Mean Xavier. 1.12 m/s AoV Peak Grad 8.5 mmHg LVOT SV 88.65 mL AoV Mean Grad 5.4 mmHg AoV VTI 0.325 m AoV Area VTI 2.73 cm2 AoV Area/ BSA (VTI) 1.55 cm/m2 Mitral Valve MV DT 194 (160-240 msec) MV PHT 56 msec MV Area PHT 3.91 cm2 Pulmonary Valve PV Vmax 1.22 (0.5-1.5 m/s) RVOT Peak Gr. 3.50 mmHg PV Peak Grad 5.9 mmHg RVOT Mean Gr. 1.70 mmHg PV Mean Grad 3.1 mmHg RVOT VTI 0.162 m PV VTI 0.171 m RVOT Vmax 0.94 m/s
--- NOTE | 2021-02-16 | DI.RAD_ITS ---
Exam(s) XR FEMUR RT EXAM: XR FEMUR RT CLINICAL HISTORY: pain, fall. TECHNIQUE: 2D digital imaging was performed. COMPARISON: No exams were available for comparison FINDINGS: No evidence of fracture femur. Main finding here is severe advanced osteoarthritic degenerative narr owing joint space, [id number]. Also multiple degenerative subarticular cysts on both sides joint. Moderate degenerative changes are noted in the ipsilateral knee joint.. IMPRESSION: DATA REPOSITORY: RADIATION DOSE DELIVERED:
--- NOTE | 2021-02-16 | DI.RAD_ITS ---
Exam(s) XR SHOULDER LT COMPLETE 2+V EXAM: XR SHOULDER LT COMPLETE 2+V CLINICAL HISTORY: L shoulder pain post fall. TECHNIQUE: 2D digital imaging was performed. COMPARISON: No exams were available for comparison FINDINGS: There is no evidence of fracture or dislocation. There are advanced degenerative changes in the jeromy ohumeral joint including joint space narrowing and humeral head osteophyte. No calcifications in the subacromial space noted. Moderate degenerative changes AC joint. No osseous lesions. IMPRESSION: DATA REPOSITORY: RADIATION DOSE DELIVERED:
--- NOTE | 2021-02-16 | DI.RAD_ITS ---
Exam(s) XR KNEE RT 3V AP,LAT,CHARLI EXAM: XR KNEE RT 3V AP,LAT,CHARLI CLINICAL HISTORY: R knee pain, fall. TECHNIQUE: 2D digital imaging was performed. COMPARISON: CR XR KNEE LT 3V AP,LAT,CHARLI from 03/31/2020 FINDINGS: There is no evidence acute fracture or obvious joint effusion. Mild-moderate degenerative changes ar e noted. On the lateral aspect of the joint there is an osteophytic density which is not a fabella a nd is consistent with an intra-articular body or articular surface osteophyte. This would be at the level of femoral condyle surface. IMPRESSION: DATA REPOSITORY: RADIATION DOSE DELIVERED:
[2021-02-16 04:52] LABS: PTT Activated 71.7 sec (21.0-27.5)
[2021-02-16 04:55] LABS: Anion Gap 10.7 mmol/L (3-11); BUN 11 mg/dL (7-18); CO2 24.3 mmol/L (21.0-32.0); CREATININE 0.7 mg/dL (0.55-1.02); Calcium 9.7 mg/dL (8.5-10.1); Chloride 109 mmol/L (98-107); Glucose 95 mg/dL (74-106); Potassium 3.1 mmol/L (3.5-5.1); Sodium 144 mmol/L (136-145)
--- NOTE | 2021-02-16 06:00 | RT.EKG_ITS ---
APPROVED REPORT Exam: Resting ECG Reason for Exam: elevated troponin Patient Location: I HR:93 bpm ECG Measurements Heart Rate 93 AXIS GA 159 P 69 QRSd 86 QRS 53 QT 371 T 53 QTc 462 Conclusion Sinus rhythm...normal P axis, V-rate 60- 99 Normal Electrocardiogram
--- NOTE | 2021-02-16 08:15 | W.PM.PROGNOT ---
Date of Service Date of service: 02/16/21 Time of Service: 10:44 Assessment and Plan Assessment and plan (1) Accidental overdose: Status: Acute Assessment and plan: Mental status appears to be clearing. We are near the point when the patient can be medically cleared. Mental health consult should be pursued and I suspect the patient may require inpatient psychiatric hospitalization due to the h/o noncompliance with medication regimen. We are contacting her caregiver to see if the patient is at her baseline mental status. If not, consider LP. (2) Elevated troponin: Status: Acute Assessment and plan: Per cardiology, unlikely to represent an ACS or even type 2 NSTEMI. Her echocardiogram showed a preserved LVEF (65%) and no wall motional abnormalities. There are no significant valvular issues. She has remained in NSR on the monitor. At this point, evelated troponin probably does have to do with very mild rhabdo. Will keep on tele for the next 24 hrs. The patient should have an outpatient stress test. (3) Hypokalemia: Status: Acute Assessment and plan: Replete, recheck in am (4) Hypomagnesemia: Status: Acute Assessment and plan: Replete, recheck in am (5) Left shoulder pain: Status: Acute Assessment and plan: Check XR, consult PT (6) Right leg pain: Status: Acute Assessment and plan: Check XR hip/pelvis, femur, knee. Consult PT. Tylenol for pain control (7) Schizoaffective disorder: Status: Chronic Assessment and plan: See above (8) Discharge planning issues: Status: Acute Assessment and plan: Full code Transfer out of ICU (9) DVT prophylaxis: Status: Acute Assessment and plan: The patient is off of heparin gtt. Will start SC lovenox tonight. Subjective Subjective Interval history since last seen: Awake this am. Not cooperative this morning, but is more so now. The patient states she feels confused. Complains of L shoulder, R hip/leg pain. Also reports L-sided chest pain which is reproducible with palpation. She states she feels she has to breathe carefully, but cannot tell me why. States she was nauseated this morning, but not answering if she is still nauseated. Her sitter states she has been turning from side to side and has been restless. TD behaviors. Not requiring oxygen. SR on monitor. BPs good. Seen by cardiology who does not feel that the patient is having an ACS. Exam Narrative Exam Narrative: General: Middle-aged female who is restless in bed, A&Ox1, answering most questions and follows commands HEENT: EOMI, MMM Heart: RRR, no m/r/g, L-sided chest pain is reproducible with palpation Lungs: CTAB Abdomen: soft, nontender, nondistended Extremities: no edema BLE's, L shoulder pain over the soft tissues, TTP, R hip and proximal lower extremity including the knee, no bruising or deformity seen in either place Objective Last Vital Signs Temp 36.4 C L 02/16/21 04:03 Pulse 89 02/16/21 06:01 Resp 16 02/16/21 06:20 BP 133/74 02/16/21 06:01 Pulse Ox 97 02/16/21 01:30 Laboratory Results - last 24 hr 02/15/21 02/15/21 02/15/21 17:26 17:26 17:26 WBC 9.22 RBC 4.10 Hgb 12.4 Hct 36.0 MCV 87.8 MCH 30.2 MCHC 34.4 RDW 11.6 L Plt Count 246 MPV 9.6 Immature Gran % 0.5 Neutrophils % 90.4 Lymphocytes % 4.6 Monocytes % 4.1 Eosinophils % 0.2 Basophils % 0.2 Nucleated RBC % 0 Absolute Neutrophils 8.33 H Absolute Lymphocytes 0.42 L Absolute Monocytes 0.38 Absolute Eosinophils 0.02 Absolute Basophils 0.02 APTT VBG Lactate Sodium 132 L Potassium 2.5 L* Chloride 97 L Carbon Dioxide 23.2 Anion Gap 11.8 H BUN 20 H Creatinine 0.7 Estimated GFR/1.73 m2 >= 60.00 Glucose 159 H Calcium 9.6 Magnesium 1.5 L Total Bilirubin 0.7 AST 23 ALT 29 Alkaline Phosphatase 133 H Creatine Kinase Troponin I 0.05 Total Protein 6.4 Albumin 3.5 TSH 0.30 L Free T4 2.04 H Urine Color Urine Clarity Urine pH Ur Specific [place] Urine Protein Urine Ketones Urine Blood Urine Nitrite Urine Bilirubin Urine Urobilinogen Ur Leukocyte Esterase Urine Glucose Salicylates < 2.8 Urine Opiates Screen Urine Methadone Screen Acetaminophen < 2 Ur Barbiturates Screen Ur Tricyclics Screen Ur Amphetamines Screen U Benzodiazepines Scrn Urine Cocaine Screen Ur THC Screen Ethyl Alcohol < 3.0 COVID-19 Source SARS-CoV-2 (PCR) 02/15/21 02/15/21 02/15/21 17:53 17:53 18:15 WBC RBC Hgb Hct MCV MCH MCHC RDW Plt Count MPV Immature Gran % Neutrophils % Lymphocytes % Monocytes % Eosinophils % Basophils % Nucleated RBC % Absolute Neutrophils Absolute Lymphocytes Absolute Monocytes Absolute Eosinophils Absolute Basophils APTT VBG Lactate Sodium Potassium Chloride Carbon Dioxide Anion Gap BUN Creatinine Estimated GFR/1.73 m2 Glucose Calcium Magnesium Total Bilirubin AST ALT Alkaline Phosphatase Creatine Kinase Troponin I Total Protein Albumin TSH Free T4 Urine Color Yellow Urine Clarity Clear Urine pH 6.0 Ur Specific [place] 1.025 Urine Protein Negative Urine Ketones 40 H Urine Blood Negative Urine Nitrite Negative Urine Bilirubin Small H Urine Urobilinogen 1.0 H Ur Leukocyte Esterase Negative Urine Glucose Negative Salicylates Urine Opiates Screen Negative Urine Methadone Screen Negative Acetaminophen Ur Barbiturates Screen Negative Ur Tricyclics Screen Negative Ur Amphetamines Screen Negative U Benzodiazepines Scrn Negative Urine Cocaine Screen Negative Ur THC Screen Negative Ethyl Alcohol COVID-19 Source Nasal/Nares SARS-CoV-2 (PCR) Negative 02/15/21 02/15/21 02/15/21 19:54 19:54 19:54 WBC RBC Hgb Hct MCV MCH MCHC RDW Plt Count MPV Immature Gran % Neutrophils % Lymphocytes % Monocytes % Eosinophils % Basophils % Nucleated RBC % Absolute Neutrophils Absolute Lymphocytes Absolute Monocytes Absolute Eosinophils Absolute Basophils APTT VBG Lactate 1.0 Sodium Potassium Chloride Carbon Dioxide Anion Gap BUN Creatinine Estimated GFR/1.73 m2 Glucose Calcium Magnesium Total Bilirubin AST ALT Alkaline Phosphatase Creatine Kinase 270 H Troponin I 0.29 H* Total Protein Albumin TSH Free T4 Urine Color Urine Clarity Urine pH Ur Specific [place] Urine Protein Urine Ketones Urine Blood Urine Nitrite Urine Bilirubin Urine Urobilinogen Ur Leukocyte Esterase Urine Glucose Salicylates Urine Opiates Screen Urine Methadone Screen Acetaminophen Ur Barbiturates Screen Ur Tricyclics Screen Ur Amphetamines Screen U Benzodiazepines Scrn Urine Cocaine Screen Ur THC Screen Ethyl Alcohol COVID-19 Source SARS-CoV-2 (PCR) 02/15/21 02/15/21 02/16/21 22:12 22:50 04:25 WBC RBC Hgb Hct MCV MCH MCHC RDW Plt Count MPV Immature Gran % Neutrophils % Lymphocytes % Monocytes % Eosinophils % Basophils % Nucleated RBC % Absolute Neutrophils Absolute Lymphocytes Absolute Monocytes Absolute Eosinophils Absolute Basophils APTT 24.8 71.7 H D VBG Lactate Sodium Potassium Chloride Carbon Dioxide Anion Gap BUN Creatinine Estimated GFR/1.73 m2 Glucose Calcium Magnesium Total Bilirubin AST ALT Alkaline Phosphatase Creatine Kinase Troponin I 0.46 H* Total Protein Albumin TSH Free T4 Urine Color Urine Clarity Urine pH Ur Specific [place] Urine Protein Urine Ketones Urine Blood Urine Nitrite Urine Bilirubin Urine Urobilinogen Ur Leukocyte Esterase Urine Glucose Salicylates Urine Opiates Screen Urine Methadone Screen Acetaminophen Ur Barbiturates Screen Ur Tricyclics Screen Ur Amphetamines Screen U Benzodiazepines Scrn Urine Cocaine Screen Ur THC Screen Ethyl Alcohol COVID-19 Source SARS-CoV-2 (PCR) 02/16/21 04:25 WBC RBC Hgb Hct MCV MCH MCHC RDW Plt Count MPV Immature Gran % Neutrophils % Lymphocytes % Monocytes % Eosinophils % Basophils % Nucleated RBC % Absolute Neutrophils Absolute Lymphocytes Absolute Monocytes Absolute Eosinophils Absolute Basophils APTT VBG Lactate Sodium 144 D Potassium 3.1 L Chloride 109 H Carbon Dioxide 24.3 Anion Gap 10.7 BUN 11 D Creatinine 0.7 Estimated GFR/1.73 m2 >= 60.00 Glucose 95 D Calcium 9.7 Magnesium Total Bilirubin AST ALT Alkaline Phosphatase Creatine Kinase Troponin I 0.30 H* Total Protein Albumin TSH Free T4 Urine Color Urine Clarity Urine pH Ur Specific [place] Urine Protein Urine Ketones Urine Blood Urine Nitrite Urine Bilirubin Urine Urobilinogen Ur Leukocyte Esterase Urine Glucose Salicylates Urine Opiates Screen Urine Methadone Screen Acetaminophen Ur Barbiturates Screen Ur Tricyclics Screen Ur Amphetamines Screen U Benzodiazepines Scrn Urine Cocaine Screen Ur THC Screen Ethyl Alcohol COVID-19 Source SARS-CoV-2 (PCR)
[2021-02-16 08:16] LABS: Creatine Kinase 357 U/L (26-192)
[2021-02-16] MEDS: Potassium Chloride 20 MEQ TABCR 40 MEQ PO (08:30)
[2021-02-16] MEDS: Aspirin E.C. 81 MG TABEC PO (08:31)
[2021-02-16] MEDS: Normal Saline Flush 10 ML SYR ×2 (08:31→08:33)
[2021-02-16] MEDS: POTASSIUM CHLORIDE 20 MEQ/100 ML BAG 50 MEQ IVPB ×2 (08:32→10:36)
[2021-02-16] MEDS: Pantoprazole 40 MG VIAL IVP (08:33)
--- NOTE | 2021-02-16 09:02 | W.CARDCONSUL ---
Date of service: 02/16/21 Time of Service: 09:03 Assessment and Plan Assessment and plan (1) AMS (altered mental status): Status: Acute (2) Elevated troponin: Status: Acute Assessment and plan: Patient's troponin is mildly elevated, as is her CPK. I do not think that this represents a non-ST elevation myocardial infarction, particularly as EKGs are normal and there are no concerning symptoms. Musculoskeletal injury could be responsible for the CPK and also the borderline troponin. I believe an echocardiogram has been ordered and will be reviewed when available I think heparin should be discontinued, as my suspicion that there is an active cardiac issue is extremely low Please do not hesitate to contact me should additional questions or concerns arise History of Present Illness History of Present Illness Chief Complaint: Abnormal mental status, abnormal troponin Narrative: Cardiac evaluation is requested in this 65-year-old woman who was admitted to the hospital 48 hours ago because of abnormal mental status. She has a history of schizoaffective disorder tobacco abuse and degenerative joint disease. She was brought in by a neighbor because of abnormal mental status. Her initial troponin was normal at less than 0.05. She subsequently had multiple troponins obtained which were abnormal, ranging from 0.29 to a peak of 0.46, then falling to 0.3. She had multiple electrocardiograms performed which were all within normal limits. Interestingly her CPK is also elevated Patient is not able to give much in the way of history She is currently eating breakfast, though not consuming very much. She complains of dry mouth Consults Consult date: 02/16/21 Requesting physician: Laura Mathew Review of Systems Unobtainable due to mental condition [facility] Medical History Bilateral knee pain Chronic diarrhea Degenerative joint disease of left hip Degenerative joint disease of right hip Folliculitis GERD (gastroesophageal reflux disease) Hip pain, right Hx MRSA infection Hx of malignant neoplasm of vagina Hypothyroidism Left knee DJD Most recent injection: 08/18/20; 03/31/2020 Leg swelling Osteoarthritis Schizoaffective disorder Urge urinary incontinence Surgical History Colonoscopy - MAC (01/12/11) Colonoscopy - MAC (02/14/17) Social History Smoking/Tobacco Use Status: Current every day Smoking risk assessment performed?: Yes Drug use: Never Do you feel safe at home: Yes Additional Social history: pts neighbor is observant of her and is here with her Exam Narrative Exam Narrative: Chronically ill-appearing older than stated age no acute distress Neck Other: No neck vein distention normal carotid upstrokes no bruits Resp Auscultation: diminished lung sounds Cardio Rate: regular rate Rhythm: regular rhythm Other: No murmur or gallop heard Extrem Other: No peripheral edema Results Last Vital Signs Temp 36.4 C L 02/16/21 04:03 Pulse 89 02/16/21 06:01 Resp 16 02/16/21 06:20 BP 133/74 02/16/21 06:01 Pulse Ox 97 02/16/21 01:30 Labs Result diagrams: 02/15/21 17:26 02/16/21 04:25 Labs: Laboratory Results - last 24 hr 02/15/21 02/15/21 02/15/21 17:26 17:26 17:26 WBC 9.22 RBC 4.10 Hgb 12.4 Hct 36.0 MCV 87.8 MCH 30.2 MCHC 34.4 RDW 11.6 L Plt Count 246 MPV 9.6 Immature Gran % 0.5 Neutrophils % 90.4 Lymphocytes % 4.6 Monocytes % 4.1 Eosinophils % 0.2 Basophils % 0.2 Nucleated RBC % 0 Absolute Neutrophils 8.33 H Absolute Lymphocytes 0.42 L Absolute Monocytes 0.38 Absolute Eosinophils 0.02 Absolute Basophils 0.02 APTT VBG Lactate Sodium 132 L Potassium 2.5 L* Chloride 97 L Carbon Dioxide 23.2 Anion Gap 11.8 H BUN 20 H Creatinine 0.7 Estimated GFR/1.73 m2 >= 60.00 Glucose 159 H Calcium 9.6 Magnesium 1.5 L Total Bilirubin 0.7 AST 23 ALT 29 Alkaline Phosphatase 133 H Creatine Kinase Troponin I 0.05 Total Protein 6.4 Albumin 3.5 TSH 0.30 L Free T4 2.04 H Urine Color Urine Clarity Urine pH Ur Specific Fertile Urine Protein Urine Ketones Urine Blood Urine Nitrite Urine Bilirubin Urine Urobilinogen Ur Leukocyte Esterase Urine Glucose Salicylates < 2.8 Urine Opiates Screen Urine Methadone Screen Acetaminophen < 2 Ur Barbiturates Screen Ur Tricyclics Screen Ur Amphetamines Screen U Benzodiazepines Scrn Urine Cocaine Screen Ur THC Screen Ethyl Alcohol < 3.0 COVID-19 Source SARS-CoV-2 (PCR) 02/15/21 02/15/21 02/15/21 17:53 17:53 18:15 WBC RBC Hgb Hct MCV MCH MCHC RDW Plt Count MPV Immature Gran % Neutrophils % Lymphocytes % Monocytes % Eosinophils % Basophils % Nucleated RBC % Absolute Neutrophils Absolute Lymphocytes Absolute Monocytes Absolute Eosinophils Absolute Basophils APTT VBG Lactate Sodium Potassium Chloride Carbon Dioxide Anion Gap BUN Creatinine Estimated GFR/1.73 m2 Glucose Calcium Magnesium Total Bilirubin AST ALT Alkaline Phosphatase Creatine Kinase Troponin I Total Protein Albumin TSH Free T4 Urine Color Yellow Urine Clarity Clear Urine pH 6.0 Ur Specific Fertile 1.025 Urine Protein Negative Urine Ketones 40 H Urine Blood Negative Urine Nitrite Negative Urine Bilirubin Small H Urine Urobilinogen 1.0 H Ur Leukocyte Esterase Negative Urine Glucose Negative Salicylates Urine Opiates Screen Negative Urine Methadone Screen Negative Acetaminophen Ur Barbiturates Screen Negative Ur Tricyclics Screen Negative Ur Amphetamines Screen Negative U Benzodiazepines Scrn Negative Urine Cocaine Screen Negative Ur THC Screen Negative Ethyl Alcohol COVID-19 Source Nasal/Nares SARS-CoV-2 (PCR) Negative 02/15/21 02/15/21 02/15/21 19:54 19:54 19:54 WBC RBC Hgb Hct MCV MCH MCHC RDW Plt Count MPV Immature Gran % Neutrophils % Lymphocytes % Monocytes % Eosinophils % Basophils % Nucleated RBC % Absolute Neutrophils Absolute Lymphocytes Absolute Monocytes Absolute Eosinophils Absolute Basophils APTT VBG Lactate 1.0 Sodium Potassium Chloride Carbon Dioxide Anion Gap BUN Creatinine Estimated GFR/1.73 m2 Glucose Calcium Magnesium Total Bilirubin AST ALT Alkaline Phosphatase Creatine Kinase 270 H Troponin I 0.29 H* Total Protein Albumin TSH Free T4 Urine Color Urine Clarity Urine pH Ur Specific Fertile Urine Protein Urine Ketones Urine Blood Urine Nitrite Urine Bilirubin Urine Urobilinogen Ur Leukocyte Esterase Urine Glucose Salicylates Urine Opiates Screen Urine Methadone Screen Acetaminophen Ur Barbiturates Screen Ur Tricyclics Screen Ur Amphetamines Screen U Benzodiazepines Scrn Urine Cocaine Screen Ur THC Screen Ethyl Alcohol COVID-19 Source SARS-CoV-2 (PCR) 02/15/21 02/15/21 02/16/21 22:12 22:50 04:25 WBC RBC Hgb Hct MCV MCH MCHC RDW Plt Count MPV Immature Gran % Neutrophils % Lymphocytes % Monocytes % Eosinophils % Basophils % Nucleated RBC % Absolute Neutrophils Absolute Lymphocytes Absolute Monocytes Absolute Eosinophils Absolute Basophils APTT 24.8 71.7 H D VBG Lactate Sodium Potassium Chloride Carbon Dioxide Anion Gap BUN Creatinine Estimated GFR/1.73 m2 Glucose Calcium Magnesium Total Bilirubin AST ALT Alkaline Phosphatase Creatine Kinase Troponin I 0.46 H* Total Protein Albumin TSH Free T4 Urine Color Urine Clarity Urine pH Ur Specific Fertile Urine Protein Urine Ketones Urine Blood Urine Nitrite Urine Bilirubin Urine Urobilinogen Ur Leukocyte Esterase Urine Glucose Salicylates Urine Opiates Screen Urine Methadone Screen Acetaminophen Ur Barbiturates Screen Ur Tricyclics Screen Ur Amphetamines Screen U Benzodiazepines Scrn Urine Cocaine Screen Ur THC Screen Ethyl Alcohol COVID-19 Source SARS-CoV-2 (PCR) 02/16/21 04:25 WBC RBC Hgb Hct MCV MCH MCHC RDW Plt Count MPV Immature Gran % Neutrophils % Lymphocytes % Monocytes % Eosinophils % Basophils % Nucleated RBC % Absolute Neutrophils Absolute Lymphocytes Absolute Monocytes Absolute Eosinophils Absolute Basophils APTT VBG Lactate Sodium 144 D Potassium 3.1 L Chloride 109 H Carbon Dioxide 24.3 Anion Gap 10.7 BUN 11 D Creatinine 0.7 Estimated GFR/1.73 m2 >= 60.00 Glucose 95 D Calcium 9.7 Magnesium Total Bilirubin AST ALT Alkaline Phosphatase Creatine Kinase 357 H Troponin I 0.30 H* Total Protein Albumin TSH Free T4 Urine Color Urine Clarity Urine pH Ur Specific Fertile Urine Protein Urine Ketones Urine Blood Urine Nitrite Urine Bilirubin Urine Urobilinogen Ur Leukocyte Esterase Urine Glucose Salicylates Urine Opiates Screen Urine Methadone Screen Acetaminophen Ur Barbiturates Screen Ur Tricyclics Screen Ur Amphetamines Screen U Benzodiazepines Scrn Urine Cocaine Screen Ur THC Screen Ethyl Alcohol COVID-19 Source SARS-CoV-2 (PCR)
[2021-02-16] MEDS: MAGNESIUM SULFATE 4 GM/100 ML BAG IVPB (09:27)
[2021-02-16] MEDS: LORazepam 0.5 MG TAB PO ×2 (12:30→17:34)
--- NOTE | 2021-02-16 12:33 | INITIAL_ITS ---
- If Service Date Differs Date of service: 02/16/21 Time of Service: 12:33 Care Management Initial Assess REASON FOR HOSPITALIZATION:: drug OD, possible NSTEMI PAST MEDICAL HISTORY/PAST SURGICAL HISTORY:: Medical History. Bilateral knee pain. Chronic diarrhea. Degenerative joint disease of left hip. Degenerative joint disease of right hip. Folliculitis. GERD (gastroesophageal reflux disease). Hip pain, right. Hx MRSA infection. Hx of malignant neoplasm of vagina. Hypothyroidism. Left knee DJD. Most recent injection: 08/18/20; 03/31/2020. Leg swelling. Osteoarthritis. Schizoaffective disorder. Urge urinary incontinence. Surgical History. Colonoscopy - MAC (01/12/11). Colonoscopy - MAC (02/14/17) PREVIOUS FUNCTIONAL STATUS/SOCIAL/FAMILY SUPPORTS:: Yaima lives in an apartment in [place], [place]. Her sister is supportive, but does not live locally. Per her PCP office, she lives alone, and sees a therapist locally. Yaima was not able to give additional details about her living situation. CURRENT FUNCTIONAL STATUS:: Yaima was sitting up in bed, eating when CM met with her. She was talkative, but did not form organized sentences. She was not able to provide details about her living situation or needs. CM will reach out to her sister regarding her discharge plan. CM will continue to follow. ADVANCE DIRECTIVES:: None on file. Has patient been provided with info about the portal/API?: Yes Did the patient sign up for the portal?: No CODE STATUS:: Full Code INSURANCE COVERAGE / FINANCIAL ISSUES:: MCR/ Financial assist 100% CURRENT HOME/COMMUNITY SERVICES/EQUIPMENT:: unknown. PRIMARY CARE PHYSICIAN:: Dillon Scott POTENTIAL DISCHARGE NEEDS:: Evaluations for further needs, follow up appointments. PATIENT/FAMILY EDUCATION NEEDS:: Review discharge instructions, discussion of self care needs including ask me three. ANTICIPATED BARRIERS TO DISCHARGE:: None identified. TRANSPORTATION:: Via private vehicle by caregiver vs RCT PLAN:: Yaima may return home vs inpatient psychiatric treatment, if indicated. Her transportation will depend on her disposition. She will follow up with her PCP and discharge plan of care. CM will continue to follow.
[2021-02-16] MEDS: Enoxaparin 40 MG/0.4 ML SYR SC (21:43)
[2021-02-16] MEDS: Normal Saline Flush 10 ML SYR IVP (21:44)
[2021-02-16] MEDS: Acetaminophen 325 MG TAB 650 MG PO (21:50)
[2021-02-16] MEDS: Acetylcysteine 600 MG CAP 1200 MG PO (21:51)
[2021-02-16] MEDS: Ascorbic Acid 500 MG TAB 1000 MG PO (21:51)
[2021-02-17 03:31] VITALS: BP 95/58; PULSE 83; RESP 20; TEMP 36.6; O2SAT 97
[2021-02-17] MEDS: Levothyroxine 88 MCG TAB PO (06:20)
[2021-02-17 06:49] LABS: HCT 38.3 % (36.0-46.0); HGB 12.7 g/dL (11.2-15.7); MCH 30.2 pg (27.0-33.0); MCHC 33.2 % (32.0-36.0); MPV 9.9 fL (8.0-11.0); Platelet Count 263 10^3/uL (130-400); RBC 4.21 10^6/uL (3.93-5.22); RDW 12.6 % (11.7-14.6); RDW-SD 41.2 fL; WBC 9.16 10^3/uL (4.4-10.8)
[2021-02-17 07:06] VITALS: PULSE 92
[2021-02-17 07:09] LABS: Anion Gap 8.6 mmol/L (3-11); BUN 17 mg/dL (7-18); CO2 24.4 mmol/L (21.0-32.0); CREATININE 0.8 mg/dL (0.55-1.02); Calcium 9.6 mg/dL (8.5-10.1); Chloride 111 mmol/L (98-107); Glucose 124 mg/dL (74-106); Potassium 3.9 mmol/L (3.5-5.1); Sodium 144 mmol/L (136-145)
[2021-02-17 08:35] VITALS: BP 115/71; PULSE 79; RESP 16; TEMP 36.7; O2SAT 96
[2021-02-17] MEDS: Pantoprazole 40 MG VIAL IVP (08:50)
[2021-02-17] MEDS: Normal Saline Flush 10 ML SYR IVP ×2 (08:50→13:57)
[2021-02-17] MEDS: Ascorbic Acid 500 MG TAB 1000 MG PO ×2 (08:50→20:12)
[2021-02-17] MEDS: Multivitamin w/Minerals TAB 1 TAB PO (08:51)
[2021-02-17] MEDS: Acetylcysteine 600 MG CAP 1200 MG PO ×2 (08:51→20:12)
--- NOTE | 2021-02-17 10:45 | NT_ITS ---
Date of service: 02/17/21 Time of Service: 10:45 PT Notes Visit Reasons: Drug OD,Possible NSTEMI Attempted to engage patient into participating twice but refused to do so both times stating the she wanted to rest. Agreeable to be seen later after her rest. Will plan to re-approach and do PT eval as ordered. Thank you for the opportunity to participate in the care of this patient. Mabel Jordan PT, DPT, [facility] [place], [place]
[2021-02-17 11:12] VITALS: PULSE 97
[2021-02-17] MEDS: LORazepam 0.5 MG TAB PO ×3 (11:28→21:32)
[2021-02-17] MEDS: Acetaminophen 325 MG TAB 650 MG PO (13:48)
--- NOTE | 2021-02-17 14:46 | NT_ITS ---
Date of service: 02/17/21 Time of Service: 14:46 PT Notes Visit Reasons: Drug OD,Possible NSTEMI Made a third attempt at doing physical therapy evaluation but patient demonstrates increased difficulty to be engaged and is having increased inability to express herself verbally. Nurse Leila and case picker Jazmine were present in the room. Notified MD and nurse behavioral health care Verónica about worsening alteration in mental status precluding PT evaluation at this time. Thank you for the opportunity to participate in the care of this patient. Mabel Jordan PT, DPT, CLT [facility] [place], [place]
--- NOTE | 2021-02-17 15:49 | W.PM.PROGNOT ---
Date of Service Date of service: 02/17/21 Time of Service: 15:49 Assessment and Plan Assessment and plan (1) Accidental overdose: Status: Acute Assessment and plan: Patient is more awake, and I believe that the medications she had overdosed are no longer the cause of her sx. However, appears psychotic and will need further psychiatric hospitalization. I believe that her speech represents disorganization from her psychosis, but to ensure that that we are not missing expressive aphasia from a stroke, I am obtaining an MRI of the brain. The patient is a voluntary admission awaiting a psychiatric hospitalization. If she were to try to leave [place], she would need to be re-evaluated for an EE. (2) Elevated troponin: Status: Acute Assessment and plan: Per cardiology, unlikely to represent an ACS or even type 2 NSTEMI. Her echocardiogram showed a preserved LVEF (65%) and no wall motional abnormalities. There are no significant valvular issues. She has remained in NSR on the monitor. At this point, evelated troponin probably does have to do with very mild rhabdo. Tele d/c'ed. Outpatient MPI. (3) Hypokalemia: Status: Resolved (4) Hypomagnesemia: Status: Resolved (5) Left shoulder pain: Status: Acute Assessment and plan: XR with Arthritis of glenohumeral joint with humeral head osteophyte and degenerative changes AC joint. Will schedule tylenol. (6) Right leg pain: Status: Acute Assessment and plan: No fx on XR. Does have OA. Refused to work with PT. Tylenol for pain control (7) Schizoaffective disorder: Status: Chronic Assessment and plan: See above (8) Discharge planning issues: Status: Acute Assessment and plan: Full code Will need psychiatric hospitalization. Voluntary admission until then. (9) DVT prophylaxis: Status: Acute Assessment and plan: SC lovenox Subjective Subjective Interval history since last seen: Ms Wang is more awake today and attempts to interact, but is not making sense. I have a hard time understanding what her complaints today are as most of her answers are 1, 2, 3, 4. Exam Narrative Exam Narrative: General: Middle-aged female who is laying in bed, wearing a diaper on her head, A&Ox1, answers most of the questions with 1, 2, 3, 4, but does seem to have a difficult time getting a sentence out, moving all 4 extremities HEENT: EOMI, MMM Heart: RRR, no m/r/g, Lungs: CTAB Abdomen: soft, nontender, nondistended Extremities: no edema BLE's Objective Last Vital Signs Temp 36.7 C 02/17/21 08:35 Pulse 97 H 02/17/21 11:12 Resp 16 02/17/21 08:35 BP 115/71 02/17/21 08:35 Pulse Ox 96 02/17/21 08:35 Laboratory Results - last 24 hr 02/17/21 02/17/21 06:22 06:22 WBC 9.16 RBC 4.21 Hgb 12.7 Hct 38.3 MCV 91.0 MCH 30.2 MCHC 33.2 RDW 12.6 Plt Count 263 MPV 9.9 Sodium 144 Potassium 3.9 D Chloride 111 H Carbon Dioxide 24.4 Anion Gap 8.6 BUN 17 D Creatinine 0.8 Estimated GFR/1.73 m2 >= 60.00 Glucose 124 H Calcium 9.6 Magnesium 2.0
--- NOTE | 2021-02-17 16:44 | CHAPLAIN ---
Yaima's nurse Leila, RN, was leaving her room as I came into visit Yaima. Yaima was in bed. She told me that Leila was nice. She said someone else had visited her and came up with Jazmine. I believe she was talking about Jazmine Christian from [facility], but I'm not sure. Said Jazmine was a nice girl. She made other statements that didn't seem to make sense, but remained pleasant and engaged. At one point she put the adult diaper over her head and left it here, while she continued talking. I told her I would check back tomorrow, and she thanked me for that.
--- NOTE | 2021-02-17 17:12 | PDOC.MHCN ---
Date of service: 02/17/21 Time of Service: 17:12
--- NOTE | 2021-02-17 18:34 | CMPROGNOTE_ITS ---
- If Service Date Differs Date of service: 02/17/21 Time of Service: 18:34 Care Management Progress Note S/O: Yaima met with AUGUSTINA Lucero today to determine if she would be safe to return home, as she is medically cleared. Yaima had a friend visiting, who stated that Yaima does not appear to be at her baseline cognition, and that she is very independent at home and in the community. Per MD, an MRI is ordered to rule out a stroke, as her symptoms may be expressive aphasia. A referral was sent to [facility] for inpatient psychiatric treatment. She is currently voluntary, awaiting placement, although she is not expressing SI/HI, therefore she does not require a safety plan or CPSO, which was discussed with the RN Cmm Programmer. CM will continue to follow. A: Yaima is a 65 year old female admitted to [facility] for drug OD, possible NSTEMI. P: Yaima is voluntary awaiting placement for inpatient psychiatric treatment. She will likely transport via [facility] vs EMS, depending on her presentation at the time of discharge. CM will continue to follow.
[2021-02-17 19:05] VITALS: BP 128/62; PULSE 96; RESP 18; TEMP 36.7; O2SAT 96
[2021-02-17] MEDS: Enoxaparin 40 MG/0.4 ML SYR SC (20:12)
--- NOTE | 2021-02-18 | DI.MRI_ITS ---
Exam(s) MR BRAIN WO EXAM: MR BRAIN WO CLINICAL HISTORY: expressive aphasia vs psychosis TECHNIQUE: Multiplanar multisequence MRI of the brain was performed. COMPARISON: CT CT HEAD WO from 02/15/[address] HEAD WO from 02/15/2021 FINDINGS: CEREBRAL PARENCHYMA: There is no evidence of intracranial hemorrhage, mass effect, or shift of midline structures. There are no extra-axial fluid collections. Ventricles are not enlarged or shifted. There is no significant focal signal abnormality in the cerebellar hemispheres nor within the merlyn an d midbrain. Liver, there is mild abnormal signal abnormality in the pulvinar nucleus of the left thalamus, as jeevan dent on T2 and FLAIR imaging. On diffusion imaging there is also an element of restricted diffusion at this level evident. There is no abnormal signal abnormality in the periventricular white matter. SWI: No evidence of microhemorrhages on susceptibility weighted imaging PITUITARY GLAND: No mass nor parasellar abnormality. No obvious abnormality in the cavernous sinuses. FLOW VOIDS: The expected flow void are noted. No evidence of obvious aneurysm nor obvious vascular ma lformation. PARANASAL SINUSES: There is a postinflammatory retention cyst in the floor of the left maxillary sinu s which measures 1.8 cm AP by 1.8 cm wide by 1.5 cm craniocaudal ORBITS: No obvious findings. IMPRESSION: The main finding here is subtle abnormal signal in the pulvinar of the left thalamus, also exhibitin g element of restricted diffusion on DWI imaging. No other abnormal signal evident in the brain. If clinically indicated follow-up contrast infused study can be performed to determine if this is possi andrew of lesion, as opposed to ischemic change. DATA REPOSITORY:
[2021-02-18] MEDS: Levothyroxine 88 MCG TAB PO (05:49)
[2021-02-18 07:12] LABS: HCT 39.3 % (36.0-46.0); HGB 13.1 g/dL (11.2-15.7); MCH 30.5 pg (27.0-33.0); MCHC 33.3 % (32.0-36.0); MCV 91.6 fL (80-95); MPV 9.6 fL (8.0-11.0); Platelet Count 256 10^3/uL (130-400); RBC 4.29 10^6/uL (3.93-5.22); RDW 12.5 % (11.7-14.6); RDW-SD 42.1 fL; WBC 10.98 10^3/uL (4.4-10.8)
[2021-02-18 08:10] VITALS: BP 102/70; PULSE 94; RESP 20; TEMP 36.4; O2SAT 95
[2021-02-18] MEDS: Multivitamin w/Minerals TAB 1 TAB PO (08:36)
[2021-02-18] MEDS: Ascorbic Acid 500 MG TAB 1000 MG PO (08:36)
[2021-02-18] MEDS: Acetylcysteine 600 MG CAP 1200 MG PO (08:36)
[2021-02-18] MEDS: LORazepam 0.5 MG TAB PO (10:38)
[2021-02-18] MEDS: LORazepam 1 MG TAB PO (11:21)
--- NOTE | 2021-02-18 12:13 | TELEFU_ITS ---
Date of service: 02/18/21 Time of Service: 12:13 Nutrition Note NOTE: Assessment: Ms. Wang has fair PO intake on a regular diet. She is 168 cm and 69 kg which gives her a BMI of 24.6 kg/m2 which is WNL. Her weight history in [facility] shows that she has had a 4% weight loss in 6 months which is not significant. Nutrition diagnosis: None at this time. Nutrition intervention: No new nutrition intervention at this time. Monitoring and Evaluation: Will continue to monitor weight and PO intake. Will evaluate nutrition care plan ongoing and adjust as needed. Time Spent in Nutritional Counseling and Treatment: 0
[2021-02-18 13:55] VITALS: PULSE 112
--- NOTE | 2021-02-18 14:01 | PGE_ITS ---
Date of Service Date of service: 02/18/21 Time of Service: 14:02 Assessment and Plan Assessment and plan (1) Acute CVA (cerebrovascular accident): Status: Suspected Assessment and plan: Consult neurology. Load with asa/plavix. Obtain MRI brain with contrast, CTA head/neck. Place back on tele. Consult speech tx. Could be related to the elevated troponin. (2) Accidental overdose: Status: Resolved Assessment and plan: Patient is more awake, and I believe that the me dications she had overdosed are no longer the cause of her sx. Mental health feels that she probably will need further psychiatric stabilization. However, not all of her speech issues are being attributed to psychosis as she does appear to have had a stroke. The patient is a voluntary admission awaiting a psychiatric hospitalization. The patient is not yet medically cleared. If she were to try to leave [facility], she would need to be re-evaluated for an EE. (3) Elevated troponin: Status: Acute Assessment and plan: Per cardiology, unlikely to represent an ACS or even type 2 NSTEMI. It could be related to the CVA +/- mild rhabdo. Her echocardiogram showed a preserved LVEF (65%) and no wall motional abnormalities. There are no significant valvular issues. She has remained in NSR on the monitor. Tele resumed due to now suspected acute CVA. Outpatient MPI. (4) Hypokalemia: Status: Resolved Assessment and plan: Replete, recheck in am (5) Hypomagnesemia: Status: Resolved Assessment and plan: Replete, recheck in am (6) Left shoulder pain: Status: Acute Assessment and plan: XR with Arthritis of glenohumeral joint with humeral head osteophyte and degenerative changes AC joint. Continue tylenol, PT. (7) Right leg pain: Status: Acute Assessment and plan: No fx on XR. Does have OA. Tylenol for pain control. PT consulted. (8) Schizoaffective disorder: Status: Chronic Assessment and plan: See above (9) Discharge planning issues: Status: Acute Assessment and plan: Full code Will need psychiatric hospitalization. Voluntary admission until then. (10) DVT prophylaxis: Status: Acute Assessment and plan: SC lovenox Subjective Subjective Interval history since last seen: The patient has been quite talkative today but not making sense. This applies to answers to my questions about her sx. When I tried to as her questions, she did not pause to listen to me until I told her that it is possible that she had had a stroke. Then she said, Are you sure? Are you really really sure? The patient was a little bit more focused on my answers, but her questions were hard to understand (word choice). I was able to understand when she thanked me. Exam Narrative Exam Narrative: General: Middle-aged female, speaking nonsensically in long stretches, A&Ox1 HEENT: EOMI, MMM Heart: RRR, no m/r/g Lungs: CTAB Abdomen: soft, nontender, nondistended Extremities: no edema BLE's, able to walk on BLEs without any instability, 5/5 strength throughout. Objective Last Vital Signs Temp 36.4 C L 02/18/21 08:10 Pulse 94 H 02/18/21 08:10 Resp 20 02/18/21 08:10 BP 102/70 02/18/21 08:10 Pulse Ox 95 02/18/21 08:10 Laboratory Results - last 24 hr 02/18/21 06:45 WBC 10.98 H RBC 4.29 Hgb 13.1 Hct 39.3 MCV 91.6 MCH 30.5 MCHC 33.3 RDW 12.5 Plt Count 256 MPV 9.6
[2021-02-18] MEDS: Aspirin E.C. 81 MG TABEC PO (14:17)
[2021-02-18] MEDS: Clopidogrel 300 MG TAB PO (14:17)
[2021-02-18 14:59] VITALS: PULSE 78
[2021-02-18] MEDS: LORazepam 2 MG/ML VIAL 1 MG IVP (15:16)
[2021-02-18] MEDS: Acetaminophen 325 MG TAB 650 MG PO (16:01)
--- NOTE | 2021-02-18 16:01 | W.NEUROCONSU ---
Date of service: 02/18/21 Time of Service: 16:01 Assessment and Plan Assessment and plan (1) Acute CVA (cerebrovascular accident): Status: Suspected (2) Schizoaffective disorder: Status: Chronic Assessment and plan: Ms. Wang has an unusual brain MRI. This may represent a subacute infarct. Clinically, she however appears in acute psychosis and not clear that the MRI findings are symptomatic. The only neurological findings were dysarthria/hypophonia and abnormal gait, though her baseline is unknown and exam was limited as she is currently not following any commands. Given somewhat ambiguous MRI findings and her atypical clinical features, ddx not only includes stroke, but also inflammation/encephalitis. Agree with brain MRI w/ as further work-up. Would start on DAPT with clopidogrel load 300mg now. Would get CTA head and neck as further work-up - MRA neck will likely not be of good quality given difficulty in being still. Telemetry. Updated lipid panel. Consider inflammatory/encephalitis work-up including ESR, CRP, ELIZABETH, RF, CSF testing, paraneoplastic panel.... Again, not clear what her baseline is and if her current mental status is consistent with her known mental health disorder or not. Will continue to follow along. History of Present Illness History of Present Illness Chief Complaint: stroke Narrative: Handedness: right. HPI: Ms. Wang is a 65 year-old woman with schizoaffective disorder, hypothyroidism, and OA. She was brought to the ER on 02/15/21 by a friend/sponsor who had noted a several week decline culminating in significantly altered mental status. Yaima had apparently not been taking her medications during the preceding several weeks until the day prior to admission when she filled her medications. On the day of admission, she mistakenly took extra medication - believed to have taken 1-2 tabs extra of buproprion and clozapine. During her stay thus far, she has apparently displayed different behaviors and symptoms. At times with pressured speech, at other times almost aphasic, and at other times psychotic appearing. It is not clear what her baseline is, on medications or off. Currently, she is quite agitated. Talking non-sensically and trying to leave. Work-up today with a brain MRI was concerning for a left thalamic stroke. See work-up below. She is not on anti-platelets at home. Work-up: -WBC 9.22 -> 9.16 -> 10.98 -Na 132 -> 144 -K 2.5 -> 3.1 -> 3.9 -Mag 1.5 -> 2.0 -CK 270 -> 357 -Trop 0.05 -> 0.29 -> 0.46 -> 0.30 -TSH 0.30, FT4 2.04 -UA Spec Grav 1.025 -UDS, ETOH, APAP, and salicyliates all neg -CTH (02/15/21): no acute findings. Mild atrophy. I reviewed these images personally and this is my personal interpretation. -MRI brain (02/18/21): subtle blush on DWI in left thalamus coinciding with hyperintensity on T2 FLAIR. Age indeterminate infarct? No prior infarcts. I reviewed these images personally and this is my personal interpretation. -TTE (02/16/21): EF 65%, no wall motion abnormalities. LA borderline dilated. -A1c (August 2020): 5.4 Consults Requesting physician: Laura Mathew Review of Systems All systems reviewed & are unremarkable except as noted in HPI and below PFSH Medical History Bilateral knee pain Chronic diarrhea Degenerative joint disease of left hip Degenerative joint disease of right hip Folliculitis GERD (gastroesophageal reflux disease) Hip pain, right Hx MRSA infection Hx of malignant neoplasm of vagina Hypothyroidism Left knee DJD Most recent injection: 08/18/20; 03/31/2020 Leg swelling Osteoarthritis Schizoaffective disorder Urge urinary incontinence Surgical History Colonoscopy - MAC (01/12/11) Colonoscopy - MAC (02/14/17) Social History Smoking/Tobacco Use Status: Current every day Smoking risk assessment performed?: Yes Drug use: Never Do you feel safe at home: Yes Additional Social history: pts neighbor is observant of her and is here with her Visit Medication and Allergies Active Medications Generic Name Dose Route Start Last Admin Trade Name Freq PRN Reason Stop Dose Admin Acetaminophen 650 mg 02/18/21 14:00 Acetaminophen 325 Mg Tab PO Q6H YENNY Acetylcysteine 1,200 mg 02/16/21 20:00 02/18/21 08:36 Acetylcysteine 600 Mg Cap PO 1,200 mg BID YENNY Administration Ascorbic Acid 1,000 mg 02/16/21 20:00 02/18/21 08:36 Ascorbic Acid 500 Mg Tab PO 1,000 mg BID YENNY Administration Aspirin 81 mg 02/19/21 08:30 Aspirin E.C. 81 Mg Tabec PO DAILY [facility] Clopidogrel Bisulfate 75 mg 02/19/21 08:30 Clopidogrel 75 Mg Tab PO DAILY [facility] Dimethicone/Zinc Oxide 0 gm 02/15/21 21:09 Melida Protect Cream 142 Gm Tube TP PRN PRN Enoxaparin Sodium 40 mg 02/16/21 20:00 02/17/21 20:12 Enoxaparin 40 Mg/0.4 Ml Syr SC 40 mg Q24H YENNY Administration IV Miscellaneous Supplies 1 each 02/15/21 17:15 Iv Access IV DIRECTED YENNY Iron/Minerals/Multivitamins 1 tab 02/17/21 08:30 02/18/21 08:36 Multivitamin W/Minerals Tab PO 1 tab DAILY YENNY Administration Levothyroxine Sodium 88 mcg 02/17/21 06:00 02/18/21 05:49 Levothyroxine 88 Mcg Tab PO 88 mcg DAILY@0600 [facility] Administration Lorazepam 0.5 mg 02/16/21 11:00 02/18/21 10:38 Lorazepam 0.5 Mg Tab PO 0.5 mg TID PRN PRN Administration Lorazepam 1 mg 02/18/21 14:08 02/18/21 15:16 Lorazepam 2 Mg/Ml Vial IVP 02/19/21 18:00 1 mg RN ACUTE CARE [facility] Administration Melatonin 3 - 6 mg 02/15/21 21:15 Melatonin 3 Mg Tab PO HS PRN Pantoprazole Sodium 40 mg 02/16/21 08:30 02/18/21 08:46 Pantoprazole 40 Mg Vial IVP Not Given Q24H [facility] Pt's Own Psyllium 1 each 02/17/21 08:30 02/18/21 08:42 Husk 0.52 Gram PO Not Given Capsule DAILY [facility] Sodium Chloride 0 ml 02/16/21 16:05 02/17/21 13:57 Normal Saline Flush 10 Ml Syr IVP 10 ml PRN PRN Administration Tolterodine Tartrate 1 mg 02/16/21 22:00 02/17/21 21:32 Tolterodine 1 Mg Tab PO 1 mg HS YENNY Administration Allergies chlorpheniramine Allergy (Verified 02/15/21 16:57) erythromycin base Allergy (Verified 02/15/21 16:57) Penicillins Allergy (Verified 02/15/21 16:57) Exam Narrative Exam Narrative: Physical Exam: Gen: Patient of apparent stated age, slightly agitated Head and face: no facial or cranial abnormalities; adentulous Neck: Supple, no meningismus, no occipital tenderness CV: + S1, S2, RRR, no murmur Resp: CTA B/L Abd: soft, nontender, nondistended Ext: No edema. No clubbing or cyanosis. No bony deformity. Neuro Exam: Language: fluency appears intact; unable to name, repeat, or follow any commands; unable to tell me her name; talking in sentences about random things Mental Status: awake and alert Speech: mild dysarthria and hypophonia Cranial nerves: Funduscopy: not performed CN II: visual hernandez appear intact by threat CN III, IV, : extraocular movements intact, no nystagmus, pupils symmetric and reactive to light CN V: face sensation intact to PP CN VII: no facial asymmetry noted CN VIII: hearing intact bilaterally CN IX, X: unable to test CN XI: unable to test CN XII: unable to test Sensory: intact to PP Motor: She was quite agitated. Would not comply with testing. Moving all extremities equally. Reflexes: hyporeflexic throughout; toes down going bilaterally; Coordination: FTN and HTS intact bilaterally Gait: knock kneed; shuffling, antalgic gait Results Last Vital Signs Temp 97.5 F L 02/18/21 08:10 Pulse 112 H 02/18/21 13:55 Resp 20 02/18/21 08:10 BP 102/70 02/18/21 08:10 Pulse Ox 95 02/18/21 08:10 Labs Result diagrams: 02/18/21 06:45 02/17/21 06:22 Labs: Laboratory Results - last 24 hr 02/18/21 06:45 WBC 10.98 H RBC 4.29 Hgb 13.1 Hct 39.3 MCV 91.6 MCH 30.5 MCHC 33.3 RDW 12.5 Plt Count 256 MPV 9.6
[2021-02-18] MEDS: Normal Saline Flush 10 ML SYR IVP (16:13)
[2021-02-18 16:47] VITALS: BP 125/90; PULSE 85; RESP 20; TEMP 36.5; O2SAT 96
[2021-02-18] MEDS: Haloperidol 5 MG/ML VIAL 4 MG IM (17:26)
[2021-02-18] MEDS: LORazepam 2 MG/ML VIAL 1 MG IM (17:28)
[2021-02-18] MEDS: diphenhydrAMINE 50 MG/ML VIAL 25 MG IM (17:29)
--- NOTE | 2021-02-18 17:37 | STREC_ITS ---
Date of service: 02/18/21 Time of Service: 17:37 Speech Therapy Recommendations Report ST Recommendations: MEDICAL CLAIMS REPRESENTATIVE Communication / Non-Treatment Note Consult received, chart reviewed; MEDICAL CLAIMS REPRESENTATIVE spoke to RN re: any issues and/or overt s/sx aspiration which nursing denies at this time, no concerns with po intake on current diet, consult primarily for ?aphasia vs psych presentation given suspected CVA. Plan: Full MEDICAL CLAIMS REPRESENTATIVE evaluation to take place 02/20 given MEDICAL CLAIMS REPRESENTATIVE availability if patient still on unit. Recommend outpatient MEDICAL CLAIMS REPRESENTATIVE follow up if d/c prior to 02/20. Nora Braden MA CCC-MEDICAL CLAIMS REPRESENTATIVE Speech-Language Pathologist [place]#[phone] Coding
--- NOTE | 2021-02-18 17:37 | PDOC.STREC ---
Date of service: 02/18/21 Time of Service: 17:37 Speech Therapy Recommendations Report ST Recommendations: CUTTING TABLE OPERATOR Communication / Non-Treatment Note Consult received, chart reviewed; CUTTING TABLE OPERATOR spoke to RN re: any issues and/or overt s/sx aspiration which nursing denies at this time, no concerns with po intake on current diet, consult primarily for ?aphasia vs psych presentation given suspected CVA. Plan: Full CUTTING TABLE OPERATOR evaluation to take place 02/20 given CUTTING TABLE OPERATOR availability if patient still on unit. Recommend outpatient CUTTING TABLE OPERATOR follow up if d/c prior to 02/20. Nora Braden MA CCC-CUTTING TABLE OPERATOR Speech-Language Pathologist [place]#[phone] Coding
--- NOTE | 2021-02-18 17:49 | CHAPLAIN ---
Yaima was sitting up in the chair when I visited. She was asking me how much time something took, but I couldn't figure out exactly what shew as talking about. She was pleasant, and continued to talk, but it was difficult to follow her train of thought.
--- NOTE | 2021-02-18 18:42 | CMPROGNOTE_ITS ---
- If Service Date Differs Date of service: 02/18/21 Time of Service: 18:42 Care Management Progress Note S/O: Yaima had an MRI today which showed a suspected CVA. She will have a medical work up for a stroke, and she is currently not medically cleared. This afternoon, Yaima stated that she wanted to leave, and got herself partially dressed. CM met with her, and coordinated a zoom with AUGUSTINA Lucero, who felt that Yaima would not be safe at home, as she is not at her baseline cognitively. Yaima was able to be redirected at that time. CM suggested that she have someone sit with her while she is awake in order to keep her calm and in the room. She was seen by Neuro today, awaiting evaluation. CM will continue to follow. A: Yaima is a 65 year old female admitted to [facility] for drug OD, possible NSTEMI. P: Yaima is voluntary awaiting placement for inpatient psychiatric treatment. She is currently not medically cleared for placement. A referral will be sent to [facility], once she is medically stable, if indicated. She will likely transport via [facility] vs EMS, depending on her presentation at the time of discharge. CM will continue to follow.
[2021-02-18] MEDS: Enoxaparin 40 MG/0.4 ML SYR SC (22:22)
--- NOTE | 2021-02-19 | DI.CT_ITS ---
Exam(s) CT BRAIN NECK CTA EXAM: CT BRAIN NECK CTA CLINICAL HISTORY: concern for CVA. TECHNIQUE: Imaging Protocol: Axial CT angiography was performed with multi-slice acquisition and mu lti-planar and/or 3D reconstructions. CONTRAST MATERIAL: Intravenous: Omnipaque 350 Contrast volume:85ml COMPARISON: CT ABD PELVIS WITH CONTRAST from 03/21/2012 MR MR BRAIN W from 02/19/2021 MR MR BRAIN W from 02/19/2021 FINDINGS: CTA Neck W: Aortic arch anatomy: The aortic arch anatomy is conventional. Anterior circulation: Both common carotid arteries are patent. Some plaque is seen on the posterior wall the left carotid bulb and proximal left ICA but without a tight stenosis the left ICA is nicely patent higher up neck. No significant stenosis at the right carotid bifurcation. Some calcified plaque is seen on the poste romedial wall of the proximal right internal carotid artery but without a significant stenosis. The right ICA is somewhat tortuous higher up neck but patent. Posterior circulation: Both vertebral arteries originated conventional fashion off the subclavian arteries. There is no tig ht stenosis in the subclavian arteries proximal to vertebral artery takeoff points (which can cause s ubclavian steal syndrome). Left vertebral artery is dominant. Both ascend in the foramen transversarium without evidence of int raluminal thrombus nor dissection. At the skull base the main contributor to the formation of the ba silar artery is left vertebral artery. The right vertebral artery appears hypoplastic at the skull b ase. CTA Brain W: This is a less than optimal study. Anterior circulation: Intracavernous internal carotid arteries are patent as are the supraclinoid aspects. Both middle cere bral arteries are patent. Both A1 segments are patent. Anterior cerebral arteries are patent. There i s no evidence of aneurysm at the level of the anterior communicating artery. Posterior circulation: Basilar artery is formed by both vertebral arteries at the skull base, the left being dominant. Basil ar artery ascends as a somewhat thin vessel. Distally quality of this study does not permit adequate visualization of the superior cerebellar arteries. The left posterior cerebral artery is patent and o riginates off the basilar tip. The right posterior cerebral artery is fed by posterior communicating artery on the right side of the [id number]. CT BRAIN: There is no evidence of intracranial hemorrhage, mass effect, or shift of midline structures. There are no extra-axial fluid collections. Ventricles are not enlarged or shifted. There are no ring enh ancing lesions in the brain and no abnormal meningeal enhancement. IMPRESSION: 1. Somewhat less than optimal study. However, there is no evidence prominent stenosis in the carotid arteries in the neck nor the vertebral arteries in the neck. 2. Intracranial vessels appear patent. 3. No aneurysms evident. No ring enhancing lesions brain nor abnormal meningeal Please note that patent intra cranial vessels are also confirmed on today's contrast infused MRI stud y. RADIATION DOSE DELIVERED: 3,001.36mGy.cm Total DLP DATA REPOSITORY: All CT scans at this facility are submitted to the National Radiology Data Registry (NRDR) Dose Index Registry (DIR) with the [employer] (ACR). RADIATION OPTIMIZATION: All CT scans at this facility use at least one of these dose optimization te chniques: automated exposure control; mA and/or kV adjustment per patient size (includes targeted exa ms where dose is matched to clinical indication); or iterative reconstruction.
--- NOTE | 2021-02-19 | DI.MRI_ITS ---
Exam(s) MR BRAIN W EXAM: MR BRAIN W CLINICAL HISTORY: concern for brain lesion vs CVA TECHNIQUE: Multiplanar multisequence MRI of the brain was performed. Both noninfused and contrast i nfused sequences were performed. IV Contrast injected was 14 cc Dotarem. Sequences performed were today whereas follows: Precontrast T1 and postcontrast T1 all 3 planes. She had a more conventional CT scan performed yesterday which r evealed findings in the left bulb in our. COMPARISON: MR MR BRAIN WO from 02/18/2021 MR MR BRAIN WO from 02/18/2021 FINDINGS: CEREBRAL PARENCHYMA: No evidence of intracranial hemorrhage, mass effect nor shift of midline structu re. No extraaxial fluid collections. Ventricles are not enlarged nor shifted. There are no ring enhancing lesions in the brain nor abnormal meningeal enhancement. No abnormal enh ancement in the pulvinar of the left thalamus which was the area which revealed increased signal on y esterday's conventional images. No evidence of aneurysm. No evidence of vascular malformation IMPRESSION: 1. No significant intracranial findings following contrast injection. 2. No abnormal enhancing intracranial finding. 3. No abnormal enhancement in the pulvinar nucleus of the left thalamus (which exhibited abnormal si gnal on DWI on yesterday's conventional MRI study). DATA REPOSITORY:
[2021-02-19 03:08] VITALS: BP 138/81; PULSE 74; RESP 20; TEMP 36.6; O2SAT 95
[2021-02-19 07:12] LABS: ESR 8 mm/hr (0-30)
[2021-02-19 07:36] LABS: Anion Gap 9.3 mmol/L (3-11); BUN 22 mg/dL (7-18); CO2 23.7 mmol/L (21.0-32.0); CREATININE 0.8 mg/dL (0.55-1.02); Calcium 9.1 mg/dL (8.5-10.1); Chloride 106 mmol/L (98-107); Glucose 78 mg/dL (74-106); Potassium 4.1 mmol/L (3.5-5.1); Sodium 139 mmol/L (136-145)
[2021-02-19 07:41] LABS: Calculated LDL 95 mg/dL (<100); Cholesterol 151 mg/dL (<200); HDL Cholesterol 38 mg/dL (40-60); Magnesium 1.6 mg/dL (1.8-2.4); Triglyceride 93 mg/dL (<150)
[2021-02-19 07:49] LABS: C-Reactive Protein 1.37 mg/dL (0.0-0.3)
[2021-02-19] MEDS: Clopidogrel 75 MG TAB PO (07:50)
[2021-02-19] MEDS: Multivitamin w/Minerals TAB 1 TAB PO (07:50)
[2021-02-19] MEDS: Acetylcysteine 600 MG CAP 1200 MG PO ×2 (07:50→19:45)
[2021-02-19] MEDS: LORazepam 0.5 MG TAB PO (07:50)
[2021-02-19] MEDS: Acetaminophen 325 MG TAB 650 MG PO ×2 (07:50→19:45)
[2021-02-19] MEDS: Aspirin E.C. 81 MG TABEC PO (07:50)
[2021-02-19] MEDS: Ascorbic Acid 500 MG TAB 1000 MG PO ×2 (07:50→19:45)
[2021-02-19 08:00] VITALS: BP 130/69; PULSE 78; RESP 19; TEMP 36.6; O2SAT 97
[2021-02-19] MEDS: Pantoprazole 40 MG VIAL IVP (09:20)
[2021-02-19] MEDS: MAGNESIUM SULFATE 2 GM/50 ML BAG IVPB (09:20)
[2021-02-19] MEDS: Normal Saline Flush 10 ML SYR IVP ×3 (09:20→15:10)
[2021-02-19 11:36] VITALS: BP 129/75; PULSE 79; RESP 18; TEMP 36.8; O2SAT 96
--- NOTE | 2021-02-19 11:38 | CMPROGNOTE_ITS ---
- If Service Date Differs Date of service: 02/19/21 Time of Service: 11:38 Care Management Progress Note S/O: Jazmine JOHNNIE, met with Yaima this morning, and reported that Yaima continues to not be at her baseline cognitively. She reported that Yaima was having difficulty eating on her own. ordered an OT consult to assess ADL's. Yaima was having an MRI when CM attempted to meet with her. Per report, she has been more calm today, although she was medicated prior to her MRI. Per report, Yaima did have a stroke, and PT/OT/ST have been consulted. CM will continue to follow. A: Yaima is a 65 year old female admitted to [facility] for drug OD, possible NSTEMI. P: Yaima is voluntary awaiting placement for inpatient psychiatric treatment. She is currently not medically cleared for placement. A referral will be sent to [facility], once she is medically stable, if indicated. She will likely trans port via [facility] vs EMS, depending on her presentation at the time of discharge. CM will continue to follow.
[2021-02-19] MEDS: Haloperidol 5 MG/ML VIAL 4 MG IM (13:56)
[2021-02-19] MEDS: diphenhydrAMINE 50 MG/ML VIAL 25 MG IM (13:57)
[2021-02-19] MEDS: LORazepam 2 MG/ML VIAL 1 MG IM (13:57)
[2021-02-19] MEDS: Gadoterate meglumine 20 ML VIAL 14 ML IVP (14:50)
[2021-02-19] MEDS: Normal Saline - Diluent 50 ML VIAL IV (15:08)
[2021-02-19] MEDS: Omnipaque 350 MG/ML 100 ML BTL IJ (15:09)
--- NOTE | 2021-02-19 16:14 | W.PM.PROGNOT ---
Date of Service Date of service: 02/19/21 Time of Service: 16:14 Assessment and Plan Assessment and plan (1) Acute CVA (cerebrovascular accident): Status: Acute (2) Schizoaffective disorder: Status: Chronic Assessment and plan: #1. Left thalamic ischemic stroke. Unclear if this is symptomatic or not. She remains psychotic and unable to comply with examination. Etiology remains unknown but likely due to intravascular large vessel disease as seen on CTA head. Continue DAPT [id number], after which clopidogrel can be stopped. She should continue on aspirin 81mg daily along with atorvastatin indefinitely for stroke prevention (ok to reduced to 10mg HS at discharge based on goal LDL <70). I recommend extended 30 day cardiac monitoring at discharge. PT and ST as tolerated. She should follow-up in neurology clinic in 4-6 weeks. Subjective Subjective Interval history since last seen: MRI brain w/ and CTA head/neck reports still pending. Per my review on brain MRI w/, no contrast re-uptake in left thalamus supporting diagnosis of stroke rather than encephalitis/inflammation. CTA head/neck per my review technically limited due to poor timing of the contrast. Intracranially, posterior circulation overall very diminutive. No obvious stenosis seen. ESR 8 and CRP 1.37. Tele with no afib. She continues to display acute psychosis. Exam Narrative Exam Narrative: Physical Exam: Constitutional: Patient of apparent stated age, well nourished, well developed, no acute distress/not agitated today Neuro: MS/Language/Speech: Alert, mild dysarthria; fluent; does not follow any commands; will not tell me her name; simply talks about what she wants to talk about Motor: Difficult to test as she would not comply with testing; moves all extremities equally Sensation: Intact to PP throughout Coordination: no ataxia Objective Last Vital Signs Temp 98.2 F 02/19/21 11:36 Pulse 79 02/19/21 11:36 Resp 18 02/19/21 11:36 BP 129/75 02/19/21 11:36 Pulse Ox 96 02/19/21 11:36 Laboratory Results - last 24 hr 02/19/21 02/19/21 02/19/21 06:27 06:27 06:27 ESR 8 Sodium 139 Potassium 4.1 Chloride 106 Carbon Dioxide 23.7 Anion Gap 9.3 BUN 22 H Creatinine 0.8 Estimated GFR/1.73 m2 >= 60.00 Glucose 78 Calcium 9.1 Magnesium 1.6 L C-Reactive Protein 1.37 H Triglycerides 93 Total Cholesterol 151 LDL Cholesterol, Calc 95 HDL Cholesterol 38 L
--- NOTE | 2021-02-19 17:47 | W.PM.PROGNOT ---
Date of Service Date of service: 02/19/21 Time of Service: 17:48 Assessment and Plan Assessment and plan (1) Acute CVA (cerebrovascular accident): Status: Acute Assessment and plan: Consult neurology. Discussed with Dr Rubalcava: follow up MR w/ contrast, CTA head/neck suggest that the patient in fact does have a stroke. Continue asa/plavix. PT/OT/speech therapy consulted. Consult speech tx. Could be related to the elevated troponin. (2) Accidental overdose: Status: Resolved Assessment and plan: Patient is more awake, and I believe that the medications she had overdosed are no longer the cause of her sx. Mental health feels that she probably will need further psychiatric stabilization (?Jos[facility]). However, not all of her speech issues are being attributed to psychosis as she has had a stroke. The patient is a voluntary admission until her disposition. (3) Elevated troponin: Status: Acute Assessment and plan: Per cardiology, unlikely to represent an ACS or even type 2 NSTEMI. It could be related to the CVA +/- mild rhabdo. Her echocardiogram showed a preserved LVEF (65%) and no wall motional abnormalities. There are no significant valvular issues. She has remained in NSR on the monitor. Tele resumed due to now suspected acute CVA. Outpatient MPI. (4) Hypokalemia: Status: Resolved Assessment and plan: Recheck in am (5) Hypomagnesemia: Status: Resolved Assessment and plan: Replete, recheck in am (6) Left shoulder pain: Status: Acute Assessment and plan: XR with Arthritis of glenohumeral joint with humeral head osteophyte and degenerative changes AC joint. Continue tylenol, PT. (7) Right leg pain: Status: Acute Assessment and plan: No fx on XR. Does have OA. Tylenol for pain control. PT consulted. (8) Schizoaffective disorder: Status: Chronic Assessment and plan: See above (9) Discharge planning issues: Status: Acute Assessment and plan: Full code Disposition is being discussed (Considering [facility]) (10) DVT prophylaxis: Status: Acute Assessment and plan: SC lovenox Subjective Subjective Interval history since last seen: Yaima is a little bit more clear with her speech today. I am not able to get a clear answer to any of my questions, though I gather that she is reporting pain in her hips. She keeps repeating, well, what do you think? Exam Narrative Exam Narrative: General: Middle-aged female, speaking nonsensically in shorter stretches today, annunciating things a little bit more clearly, A&Ox1 HEENT: EOMI, MMM Heart: RRR, no m/r/g Lungs: CTAB Abdomen: soft, nontender, nondistended Extremities: no edema BLE's, able to walk on BLEs with a gait that suggests hip tenderness, 5/5 strength throughout. Objective Last Vital Signs Temp 36.8 C 02/19/21 11:36 Pulse 79 02/19/21 11:36 Resp 18 02/19/21 11:36 BP 129/75 02/19/21 11:36 Pulse Ox 96 02/19/21 11:36 Laboratory Results - last 24 hr 02/19/21 02/19/21 02/19/21 06:27 06:27 06:27 ESR 8 Sodium 139 Potassium 4.1 Chloride 106 Carbon Dioxide 23.7 Anion Gap 9.3 BUN 22 H Creatinine 0.8 Estimated GFR/1.73 m2 >= 60.00 Glucose 78 Calcium 9.1 Magnesium 1.6 L C-Reactive Protein 1.37 H Triglycerides 93 Total Cholesterol 151 LDL Cholesterol, Calc 95 HDL Cholesterol 38 L
[2021-02-19 19:41] VITALS: BP 128/77; PULSE 76; RESP 17; TEMP 37.1; O2SAT 96
[2021-02-20] MEDS: Levothyroxine 88 MCG TAB PO (05:41)
[2021-02-20 06:00] VITALS: BP 123/70; PULSE 79; RESP 20; TEMP 36.8; O2SAT 97
[2021-02-20 07:20] LABS: Anion Gap 7.4 mmol/L (3-11); BUN 22 mg/dL (7-18); CO2 24.6 mmol/L (21.0-32.0); CREATININE 0.7 mg/dL (0.55-1.02); Chloride 107 mmol/L (98-107); Glucose 84 mg/dL (74-106); Magnesium 1.8 mg/dL (1.8-2.4); Potassium 3.7 mmol/L (3.5-5.1); Sodium 139 mmol/L (136-145)
[2021-02-20] MEDS: Pantoprazole 40 MG VIAL IVP (08:10)
[2021-02-20] MEDS: Aspirin E.C. 81 MG TABEC PO (08:11)
[2021-02-20] MEDS: Multivitamin w/Minerals TAB 1 TAB PO (08:11)
[2021-02-20] MEDS: Acetaminophen 325 MG TAB 650 MG PO ×3 (08:11→20:03)
[2021-02-20] MEDS: Normal Saline Flush 10 ML SYR IVP (08:11)
[2021-02-20] MEDS: Acetylcysteine 600 MG CAP 1200 MG PO ×2 (08:11→20:02)
[2021-02-20] MEDS: Clopidogrel 75 MG TAB PO (08:11)
[2021-02-20] MEDS: Ascorbic Acid 500 MG TAB 1000 MG PO ×2 (08:11→20:02)
[2021-02-20 09:23] VITALS: BP 165/77; PULSE 75; RESP 17; TEMP 36.3; O2SAT 97
[2021-02-20 11:17] VITALS: BP 121/74; PULSE 69; RESP 16; TEMP 37.1; O2SAT 98
--- NOTE | 2021-02-20 12:40 | W.SPSTE ---
Date of service: 02/20/21 Time of Service: 12:00 Subjective Patient referred for cognitive/communication and swallowing evaluation by Dr. Mathew given suspected CVA and possible aphasia/dysarthria. Subjective: Yaima was contacted in her room during lunchtime. Received awake/alert. Not oriented, unable to state name. She appears confused, but awake, alert, pleasant and responsive. Precautions: Standard HPI: Pt is a 65 y/o F with h/o schizoaffective disorders. She was brought to the ER by her neighbor who noticed her to be less alert than usual. At time of admit there was question of unintentional drug OD, and prior to that the patient had not taken any of her meds for several weeks. Since admit she has been very confused, not cooperative, and with disorganized/aphasic communication. Brain imaging was ordered and Neuro was consulted given, now found to have acute CVA (L thalamic ischemic stroke). See imaging results and neuro consult notes for further detail. PMHx: Bilateral knee pain Chronic diarrhea Degenerative joint disease of left hip Degenerative joint disease of right hip Folliculitis GERD (gastroesophageal reflux disease) Hip pain, right Hx MRSA infection Hx of malignant neoplasm of vagina Hypothyroidism Left knee DJD Leg swelling Osteoarthritis Schizoaffective disorder Urge urinary incontinence Surgical Hx: Colonoscopy only Social: Per note 02/16: ?Yaima lives in an apartment in [place], [place]. Her sister is supportive, but does not live locally. Per her PCP office, she lives alone, and sees a therapist locally. Yaima was not able to give additional details about her living situation.? Objective Objective Respiratory status: Room air, no s/sx dyspnea. No baseline cough or wet voice. Oral-motor/peripheral exam: LIMITED given patient confusion, inattention, persevorative behaviors, unable to follow many commands. Observations: Edentulous. Volitional cough: adequate Auditory Comprehension: Single words - Points to object from field of 2: No Follows 1-step instructions: +4/5 Follows 2-step instructions: No Verbal Expression: Counting 1-20: +19/20 (skipped 16) Object naming: +0/3 Repetition: +0/4 Observation: Frequent perseveration of topic as well as phrases. Frequently saying One two three four instead of target production both in structured tasks and in conversation. Grammatical in conversation. Telegraphic, frequently searching, lack of content words. Noting 2x phonetic paraphasia (e.g., Mest for Mess). I just don't know... 1,2,3 ? Topic maintenance: Persevorative - comprehension vs poor insight/pragmatics. Reading: Single words - reading aloud: +1/2 (Noting, when presented with word ONE patient spontaneously spells the word aloud but unable to say it.) Short phrases - reading aloud: +0/2 (unable to start) Single words - choose from field of 2: +0/3 Writing: Not assessed Orientation: +0/5 Insight: Partial - appears aware that she is not quite herself I'm a mess. Something's not right. Can they help me? but low awareness of nature of deficits. Attention: Appearing with short attention span, easily distractable (angeline to internal distraction) Memory: Unable to test Other: ?R neglect: unable to determine whether her R hand was above or below the table. Speech: No formal tasks administered. 100% intelligible. Characteristic of edentuloussness. Possible mild hypophonia vs poor perspective-taking. Also question velo-pharyngeal sufficiency, mild intermittent hypernasality noted which may contribute to low volume of speech. Difficult to fully assess due to inability to isolate nasal vs non-nasal words given patient's poor repetition skills. Swallowing: Food items tested: [ ] None. Further swallow assessment not warranted at this time. [ ] Ice: [x] IDDSI 0:via sippy cup to prevent spilling [ ] IDDSI 1: [ ] IDDSI 2: [ ] IDDSI 3: [ ] IDDSI 4: [ ] IDDSI 5: [ ] IDDSI 6: [X] IDDSI 7: tuna salad sandwich, cookie, apple slices [ ] Pill/tablet: Oral phase: [ ] WFL [ ] Leakage from mouth [ ] Difficulty with bolus manipulation [ ] Difficulty with a-p transport [X] Difficulty chewing with apple slices [ ] Pocketing [ ] Residue Pharyngeal phase: [X] WFL [ ] Delayed swallow initiation [ ] Reduced hyolaryngeal elevation/excursion [ ] Cough after swallow [ ] Voice change after swallow [ ] Throat clearing [ ] Endorsed stasis Assessment COGNITIVE/COMMUNICATION: Patient presents with at least mild-moderate fluent expressive>receptive aphasia c/b poor naming and repetition skills with preserved automatic verbal production. While comprehension is certainly impaired, patient is able to follow most simple, concrete, single-step instructions, but comprehension tends to break down at conversation level. Assessment ability quite limited, and suspect some language symptoms (angeline comprehension) may appear exacerbated in setting of limited attentional skills at this time and altered mental status with cognitive/psych behaviors. Regarding speech, while patient is 100% comprehensible today, question presence of mild dysarthria in setting of possible reduced velopharyngeal function and complicated by edentulousness and low insight. Will continue to monitor. Will benefit from communication strategies such as chunking information/instructions into single pieces. Reinforce important information with pictures and/or writing. Use gesture and contextual cues as much as possible. Patient requires constant redirection. SWALLOWING: Patient appears with safe swallow function without s/sx aspiration noted this date, with mild heightened risk of aspiration related complication or choking in setting of edentulousness and poor attention/problem-solving skills. Recommend soft/easy to chew foods. Further HEAVY EQUIPMENT SALES MANAGER services are warranted at this time. --- Provided education to RN re: anatomy/physiology of swallowing mechanism, overt s/sx to monitor for re: potential aspiration of food liquids, recommendations for improved oral care, relationship between respiratory function changes and deglutition, as well as cognitive-communication findings, and recommendations as below. Prognosis: Guarded given baseline medical history, severity, time since onset, psych status. Discharge: May be a candidate for either outpatient or inpatient HEAVY EQUIPMENT SALES MANAGER rehabilitation pending progress with psych symptoms at [facility]. At this time, patient's level of insight and confusion likely prevent her from engaging. RECOMMENDATIONS: Communication: -Provide only 1 piece of information/question at a time. -Provide contextual cues, gesture, picture reinforcement. -Establish topic clearly before engaging patient in conversation. -Redirect as necessary. Diet Texture Modification(s): IDDSI Level(s) 6-Soft & Bite-Sized Solids 0-Thin Liquids Medication Intake: Whole with 4-Extremely Thick Liquids or as tolerated RISK MANAGEMENT: Oral hygiene BID/2x per day and before/after PO intake using friction with toothbrush on all oral structures as tolerated HOB upright as tolerated; upright for all PO intake. Encourage physical mobility as tolerated. Level of Assistance/Supervision: 1:1 close supervision/assist for all PO intake PO intake only when awake/alert Strategies/Adaptations/Assistive Equipment: Small sips and bites when eating Redirect patient to discourage talking while eating. Reduce distractions (e.g., TV, etc) Posture/Positioning Needs: Maintain upright position at least 30 minutes after meals Avoid meals/snacks 2-3 hours prior to reclining/sleeping Specialist referrals: N/A Ancillary tests: N/A Therapy: N/A Goal: N/A Plan HEAVY EQUIPMENT SALES MANAGER to follow while on unit 2-4x/weekly to monitor communication & swallow function. FABRICATION MACHINE OPERATOR GOALS: 1. Patient will use safe swallow strategies to tolerate least restrictive diet without s/sx aspiration. 2. Patient will demonstrate functional communication for independent daily living. SHORT TERM GOALS: 1.1 Patient/caregiver will demonstrate understanding of education r/t aspiration precautions and safe swallow recommendations. 1.2 Patient will safely tolerate least restrictive diet of IDDSI level 6 soft/bite size solids and 0-thin liquids without s/sx aspiration. Communication goals pending further improvement and/or assessment. Lori Dey Speech Language Pathologist HEAVY EQUIPMENT SALES MANAGER CPT Codes: 36721 Clinical Swallowing Evaluation 92385 Speech & Language Evaluation Coding
[2021-02-20 14:00] VITALS: BP 134/69; PULSE 76; RESP 20; TEMP 36.7; O2SAT 97
[2021-02-20] MEDS: LORazepam 0.5 MG TAB PO (14:26)
[2021-02-20 15:03] VITALS: BP 113/68; PULSE 64; RESP 22; TEMP 36.1; O2SAT 95
--- NOTE | 2021-02-20 15:08 | CMPROGNOTE_ITS ---
Care Management Progress Note S/O: CM spoke with Jazmine; [facility] who inquired as to Yaima's current status. Yaima continues to be closely monitored and treated, per provider CVA suspected at this time. Yaima is walking through the hallways when CM observes her. She requires constant cueing at this time. CM faxed referral to [facility] for review over the weekend, with hopes that Yaima will be medically cleared by the weekend. Jazmine will continue to follow and access when Yaima is medically cleared. RITESH continues to follow as well. A: Yaima is a 65 year old female admitted to [facility] for drug OD, possible NSTEMI. P: Yaima is voluntary awaiting placement for inpatient psychiatric treatment, referral faxed to [facility]. She is currently not medically cleared for placement. Anticipate she will likely transport via [facility] vs EMS, depending on her presentation at the time of discharge. CM will continue to follow.
--- NOTE | 2021-02-20 17:54 | PGE_ITS ---
Date of Service Date of service: 02/20/21 Time of Service: 16:45 Assessment and Plan Assessment and plan (1) Acute CVA (cerebrovascular accident): Status: Acute Assessment and plan: Acute ischemic L thalamic stroke. Continue asa/plavix. PT/OT/speech therapy. Could be related to the elevated troponin. (2) Accidental overdose: Status: Resolved Assessment and plan: Patient is more awake, and I believe that the medications she had overdosed are no longer the cause of her sx. Mental health feels that she probably will need further psychiatric stabilization (?[facility]). However, not all of her speech issues are being attributed to psychosis as she has had a stroke. The patient is a voluntary admission until her disposition. (3) Elevated troponin: Status: Acute Assessment and plan: Per cardiology, unlikely to represent an ACS or even type 2 NSTEMI. It could be related to the CVA +/- mild rhabdo. Her echocardiogram showed a preserved LVEF (65%) and no wall motional abnormalities. There are no significant valvular issues. She has remained in NSR on the monitor. Tele resumed due to now suspected acute CVA. Outpatient MPI. (4) Hypokalemia: Status: Resolved Assessment and plan: Recheck in am (5) Hypomagnesemia: Status: Acute Assessment and plan: Replete, recheck in am (6) Left shoulder pain: Status: Acute Assessment and plan: XR with Arthritis of glenohumeral joint with humeral head osteophyte and degenerative changes AC joint. Continue tylenol, PT. (7) Right leg pain: Status: Acute Assessment and plan: No fx on XR. Does have OA. Tylenol for pain control. PT consulted. (8) Schizoaffective disorder: Status: Chronic Assessment and plan: See above (9) Discharge planning issues: Status: Acute Assessment and plan: Full code Planned disposition to [facility] (10) DVT prophylaxis: Status: Acute Assessment and plan: SC lovenox Subjective Subjective Interval history since last seen: Ms Wang is still very hard to understand when I ask her questions, and it is unclear if it is word salad or expressive aphasia. Evaluated by speech therapy for both speech/swallowing eval. Exam Narrative Exam Narrative: General: Middle-aged female, speaking nonsensically, slower today, pronounciation unchanged. HEENT: EOMI, MMM Heart: RRR, no m/r/g Lungs: CTAB Abdomen: soft, nontender, nondistended Extremities: no edema BLE's, able to walk on BLEs with a gait that suggests hip tenderness, 5/5 strength throughout. Objective Last Vital Signs Temp 36.1 C L 02/20/21 15:03 Pulse 64 02/20/21 15:03 Resp 22 02/20/21 15:03 BP 113/68 02/20/21 15:03 Pulse Ox 95 02/20/21 15:03 Laboratory Results - last 24 hr 02/20/21 06:25 Sodium 139 Potassium 3.7 Chloride 107 Carbon Dioxide 24.6 Anion Gap 7.4 BUN 22 H Creatinine 0.7 Estimated GFR/1.73 m2 >= 60.00 Glucose 84 Calcium 9.0 Magnesium 1.8
[2021-02-20 19:00] VITALS: BP 100/58; PULSE 76; RESP 18; TEMP 36.7; O2SAT 98
[2021-02-20] MEDS: Enoxaparin 40 MG/0.4 ML SYR SC (20:04)
[2021-02-21] MEDS: Acetaminophen 325 MG TAB 650 MG PO ×4 (01:53→19:40)
[2021-02-21 01:57] VITALS: BP 128/74; PULSE 73; RESP 18; TEMP 37.3; O2SAT 98
[2021-02-21] MEDS: Levothyroxine 88 MCG TAB PO (06:02)
[2021-02-21 06:53] LABS: HCT 38.6 % (36.0-46.0); HGB 12.7 g/dL (11.2-15.7); MCH 30.6 pg (27.0-33.0); MCHC 32.9 % (32.0-36.0); MPV 9.7 fL (8.0-11.0); Platelet Count 245 10^3/uL (130-400); RBC 4.15 10^6/uL (3.93-5.22); RDW 12.1 % (11.7-14.6); RDW-SD 41.8 fL
[2021-02-21 08:21] VITALS: BP 132/65; PULSE 77; RESP 12; TEMP 36.1; O2SAT 92
[2021-02-21] MEDS: Multivitamin w/Minerals TAB 1 TAB PO (08:39)
[2021-02-21] MEDS: Ascorbic Acid 500 MG TAB 1000 MG PO ×2 (08:39→19:40)
[2021-02-21] MEDS: Acetylcysteine 600 MG CAP 1200 MG PO ×2 (08:39→19:40)
[2021-02-21] MEDS: Aspirin E.C. 81 MG TABEC PO (08:40)
[2021-02-21] MEDS: Clopidogrel 75 MG TAB PO (08:40)
[2021-02-21] MEDS: LORazepam 0.5 MG TAB PO ×3 (09:20→21:25)
--- NOTE | 2021-02-21 10:55 | W.PM.PROGNOT ---
Date of Service Date of service: 02/21/21 Time of Service: 10:55 Assessment and Plan Assessment and plan (1) Acute CVA (cerebrovascular accident): Status: Acute Assessment and plan: Acute ischemic L thalamic stroke. Continue asa/plavix. PT/OT/speech therapy. add statin. (2) Accidental overdose: Status: Resolved Assessment and plan: Patient is more awake, and I believe that the medications she had overdosed are no longer the cause of her sx. Mental health feels that she probably will need further psychiatric stabilization (?Kirstin). However, not all of her speech issues are being attributed to psychosis as she has had a stroke. The patient is a voluntary admission until her disposition. (3) Elevated troponin: Status: Acute Assessment and plan: Per cardiology, unlikely to represent an ACS or even type 2 NSTEMI. It could be related to the CVA +/- mild rhabdo. Her echocardiogram showed a preserved LVEF (65%) and no wall motional abnormalities. There are no significant valvular issues. She has remained in NSR on the monitor. Tele resumed due to now suspected acute CVA. Outpatient MPI. (4) Hypokalemia: Status: Resolved Assessment and plan: Recheck in am (5) Hypomagnesemia: Status: Acute Assessment and plan: Replete, recheck in am (6) Left shoulder pain: Status: Acute Assessment and plan: XR with Arthritis of glenohumeral joint with humeral head osteophyte and degenerative changes AC joint. Continue tylenol, PT. (7) Right leg pain: Status: Acute Assessment and plan: No fx on XR. Does have OA. Tylenol for pain control. PT consulted. (8) Schizoaffective disorder: Status: Chronic Assessment and plan: See above (9) DVT prophylaxis: Status: Acute Assessment and plan: SC lovenox (10) Discharge planning issues: Status: Acute Assessment and plan: Full code Planned disposition to [facility] discussed with Dr Hemphill Subjective Subjective Patient reports: no new complaints, tolerating liquids well, tolerating a regular diet and afebrile; denies shortness of breath Exam Const General: cooperative and no acute distress Orientation: alert, awake and other (unable to assess) HENMT Head: normal to inspection and normocephalic Resp Effort & Inspection: normal respiratory effort Cardio Rate: regular rate Rhythm: regular rhythm GI Palpation: soft Skin General skin exam: no rashes or lesions noted Neuro Cognition: abnormal cognition Motor: muscle tone normal throughout Extrem General: normal to inspection and no pedal edema Objective Last Vital Signs Temp 36.1 C L 02/21/21 08:21 Pulse 77 02/21/21 08:21 Resp 12 02/21/21 08:21 BP 132/65 02/21/21 08:21 Pulse Ox 92 02/21/21 08:21 Laboratory Results - last 24 hr 02/21/21 06:15 WBC 7.20 RBC 4.15 Hgb 12.7 Hct 38.6 MCV 93.0 MCH 30.6 MCHC 32.9 RDW 12.1 Plt Count 245 MPV 9.7
[2021-02-21 11:32] VITALS: BP 130/70; PULSE 77; RESP 12; TEMP 35.7; O2SAT 98
[2021-02-21 17:07] VITALS: BP 125/77; PULSE 77; RESP 16; TEMP 36.2; O2SAT 96
[2021-02-21] MEDS: Atorvastatin 40 MG TAB PO (19:40)
[2021-02-21] MEDS: Enoxaparin 40 MG/0.4 ML SYR SC (19:40)
[2021-02-22] MEDS: Levothyroxine 88 MCG TAB PO (05:52)
[2021-02-22 05:57] VITALS: BP 162/92; PULSE 81; RESP 17; TEMP 36.7; O2SAT 95
[2021-02-22] MEDS: Clopidogrel 75 MG TAB PO (09:28)
[2021-02-22] MEDS: Normal Saline Flush 10 ML SYR IVP (09:30)
[2021-02-22] MEDS: Pantoprazole 40 MG VIAL IVP (09:31)
[2021-02-22] MEDS: Multivitamin w/Minerals TAB 1 TAB PO (09:31)
[2021-02-22] MEDS: Acetylcysteine 600 MG CAP 1200 MG PO ×2 (09:31→19:13)
[2021-02-22] MEDS: Aspirin E.C. 81 MG TABEC PO (09:32)
[2021-02-22] MEDS: Ascorbic Acid 500 MG TAB 1000 MG PO ×2 (09:32→19:13)
[2021-02-22] MEDS: Acetaminophen 325 MG TAB 650 MG PO ×3 (09:32→19:13)
--- NOTE | 2021-02-22 09:59 | W.PM.PROGNOT ---
Date of Service Date of service: 02/22/21 Time of Service: 09:59 Assessment and Plan Assessment and plan (1) Acute CVA (cerebrovascular accident): Status: Acute Assessment and plan: Acute ischemic L thalamic stroke. Continue asa/plavix. PT/OT/speech therapy. add statin. (2) Accidental overdose: Status: Resolved Assessment and plan: Patient is more awake, and I believe that the medications she had overdosed are no longer the cause of her sx. Mental health feels that she probably will need further psychiatric stabilization (?Kirstin). However, not all of her speech issues are being attributed to psychosis as she has had a stroke. The patient is a voluntary admission until her disposition. (3) Elevated troponin: Status: Acute Assessment and plan: Per cardiology, unlikely to represent an ACS or even type 2 NSTEMI. It could be related to the CVA +/- mild rhabdo. Her echocardiogram showed a preserved LVEF (65%) and no wall motional abnormalities. There are no significant valvular issues. She has remained in NSR on the monitor. Tele resumed due to now suspected acute CVA. Outpatient MPI. (4) Hypokalemia: Status: Resolved Assessment and plan: Recheck in am (5) Hypomagnesemia: Status: Acute Assessment and plan: Replete, recheck in am (6) Left shoulder pain: Status: Acute Assessment and plan: XR with Arthritis of glenohumeral joint with humeral head osteophyte and degenerative changes AC joint. Continue tylenol, PT. (7) Right leg pain: Status: Acute Assessment and plan: No fx on XR. Does have OA. Tylenol for pain control. PT consulted. (8) Schizoaffective disorder: Status: Chronic Assessment and plan: increased agitation and restlessness today. add seroquel for symptoms sitter for safety as needed. (9) DVT prophylaxis: Status: Acute Assessment and plan: SC lovenox (10) Discharge planning issues: Status: Acute Assessment and plan: Full code Planned disposition to [facility] discussed with Dr Hemphill Subjective Subjective Patient reports: no new complaints, tolerating liquids well, tolerating a regular diet and afebrile Interval history since last seen: increase confusion and agitation, unable to redirect. has needed to have sitter for safety Exam Const General: cooperative and no acute distress Orientation: alert, awake and other (unable to assess) [facility] Head: normal to inspection and normocephalic Resp Effort & Inspection: normal respiratory effort Cardio Rate: regular rate Rhythm: regular rhythm GI Palpation: soft Skin General skin exam: no rashes or lesions noted Neuro Cognition: abnormal cognition Motor: muscle tone normal throughout Extrem General: normal to inspection and no pedal edema Objective Last Vital Signs Temp 36.7 C 02/22/21 05:57 Pulse 81 02/22/21 05:57 Resp 17 02/22/21 05:57 BP 162/92 H 02/22/21 05:57 Pulse Ox 95 02/22/21 05:57
[2021-02-22] MEDS: LORazepam 0.5 MG TAB PO ×3 (11:12→18:56)
[2021-02-22 11:20] VITALS: BP 147/76; PULSE 79; RESP 18; TEMP 36.4; O2SAT 97
[2021-02-22] MEDS: QUEtiapine 25 MG TAB 12.5 MG PO ×2 (16:12→21:07)
[2021-02-22] MEDS: Atorvastatin 40 MG TAB PO (19:13)
[2021-02-22 21:00] VITALS: BP 157/90; PULSE 101; RESP 16; TEMP 35.6; O2SAT 91
[2021-02-22] MEDS: Melatonin 3 MG TAB PO (21:07)
[2021-02-23] MEDS: LORazepam 0.5 MG TAB PO ×3 (00:55→16:54)
[2021-02-23] MEDS: Acetaminophen 325 MG TAB 650 MG PO ×4 (01:05→21:21)
[2021-02-23] MEDS: Levothyroxine 88 MCG TAB PO (05:54)
[2021-02-23 07:34] VITALS: BP 124/79; PULSE 89; RESP 16; TEMP 35.2; O2SAT 98
[2021-02-23] MEDS: Aspirin E.C. 81 MG TABEC PO (07:55)
[2021-02-23] MEDS: Ascorbic Acid 500 MG TAB 1000 MG PO ×2 (07:55→21:22)
[2021-02-23] MEDS: Clopidogrel 75 MG TAB PO (07:56)
[2021-02-23] MEDS: Acetylcysteine 600 MG CAP 1200 MG PO ×2 (07:56→21:22)
[2021-02-23] MEDS: Multivitamin w/Minerals TAB 1 TAB PO (07:56)
--- NOTE | 2021-02-23 09:10 | CMPROGNOTE_ITS ---
- If Service Date Differs Date of service: 02/23/21 Time of Service: 09:10 Care Management Progress Note S/O: Yaima was sitting up on the side of the bed eating lunch when CM met with her. She was pleasant but very confused. Yaima asked questions that were incomprehensible and impossible to answer. She has been deemed medically cleared by the provider and efforts will be made to place her at [facility]. A referral was sent last week but no response has been received to date. A follow up phone call was made by CM today. A: Yaima is a 65 year old female admitted to [facility] for drug OD, possible NSTEMI. P: Yaima is voluntary awaiting placement for inpatient psychiatric treatment, referral faxed to [facility]. She is currently not medically cleared for placement. Anticipate she will likely transport via [facility] vs EMS, depending on her presentation at the time of discharge. CM will continue to follow.
[2021-02-23] MEDS: Pantoprazole 40 MG TABCR PO (09:44)
--- NOTE | 2021-02-23 11:01 | OTIE_ITS ---
Occupational Therapy Notes Inpatient Occupational Therapy Evaluation Date: 02/23/21 Referring Doctor:Dr. Mathew OT Orders: Non Urgent Precautions: Fall, standard, full PATIENT PROFILE/ADMITTING DIAGNOSIS: Pt is a 65 year old female who was admitted through the ED with the following dx of acute CVA, schizoaffective disorder, (R) leg pain, (L) shoulder pain, hypomagnesemia, hypokalemia, accidental overdose, AMS, depression, hypokalemia, elevated troponin, hematuria. Past Medical History: Medical History Bilateral knee pain Chronic diarrhea Degenerative joint disease of left hip Degenerative joint disease of right hip Folliculitis GERD (gastroesophageal reflux disease) Hip pain, right Hx MRSA infection Hx of malignant neoplasm of vagina Hypothyroidism Left knee DJD Most recent injection: 08/18/20; 03/31/2020 Leg swelling Osteoarthritis Schizoaffective disorder Urge urinary incontinence Surgical History Colonoscopy - MAC (01/12/11) Colonoscopy - MAC (02/14/17) Social History/Home Situation: Unable to assess pt is a poor historian Equipment owned/DME: Unable to assess SUBJECTIVE: Pt was sitting on side on bed when OT arrived with [facility] in the room. OBJECTIVE: General Observation: Pleasant, IV in (R) UE, bruising on arms and legs, (R) side neglect Mental Status: Alert to name ROM: RUE (R) side neglect, PROM WFL, AROM decreased coordination and motor control L UE AROM WFL STRENGTH: RUE pool attendant WNL, shoulder flexion, bicep and tricep 2+/5 LUE 5/5 throughout FUNCTIONAL MOBILITY/ADLS: Transfers with FWW and mod vc Supine-sit (I) with SBA Sit-supine SBA Sit-Stand (I) with SBA for safety Stand-sit (I) with SBA for safety Bed-Chair (I) with SBA for safety Chair-bed (I) with SBA for safety BATHING max (A) set up/clean up and mod vc throughout for performance Bathing UE (I) face, mod (A) (B) UE, min (A) abdomen Bathing LE (I) (B) LE and min (A) evangelist area by GUNNER MATE post commode use DRESSING sitting on side of the bed Dressing UE Max (A) doffing t-shirt, min (A) doffing and donning [facility] gown Dressing LE min (A) doffing pants, (I) donning (B) socks GROOMING (I) with brushing hair but requires mod vc for performance TOILETING Pt requires min (A) for commode and toileting hygiene EATING NT BALANCE: Static sitting Normal Dynamic Sitting Good Static Standing Good Dynamic Standing Fair-Good SPECIAL TESTS: Daily Activity Limitations Standardized Measure [facility] AM -PAC ?6 clicks? Daily Activity Inpatient Short Form: Raw score: 7 INFORMED CONSENT/EDUCATION: Pt instructed in purpose of OT Consult and plan of care. ASSESSMENT: Patient is a 65-year-old female referred to occupational therapy services with diagnosis of acute CVA, schizoaffective disorder, (R) leg pain, (L) shoulder pain, hypomagnesemia, hypokalemia, accidental overdose, AMS, depression, hypokalemia, elevated troponin, hematuria. Patient presents with clinical signs and symptoms consistent with dx, as demonstrated by the following impairment level findings/ functional limitations: Impairments in ADL/IADL activities, cognitive awareness deficits, decreased safety awareness, decreased gross and fine motor control of (R) UE, decreased strength of (R) UE, (R) UE neglect, impairment in (R) UE for ADLs, decreased ROM of (R) UE, requires vc for performance and initiation of ADLs. AMPAC score 7 Patient is assessed as a high 94080 complexity based on the following: History: see above Examination: see functional functional limitations as noted above Presentation: evolving Decision Making: AMPAC score 7 GOALS Goals x1 week 1. Transfers with FWW (I) 2. Dressing sitting in chair min (A) 3. Bathing standing at sink min (A) 4. Toileting on toilet min (A) 5. Eating (I) PLAN OF CARE/TREATMENT PLAN: 1x/day, 5 days/ week x 1week Initiate Occupational Therapy Services for bathing, dressing, grooming, toileting, eating, transfer training. DISCHARGE RECOMMENDATIONS Pt is not (I) at her baseline level of function and she will require LTC/assistance with her ADLs when medically cleared per MD. She is a high risk of re-admission and requires vc for safety awareness. OT will continue to assess pt as she progresses. TREATMENT TIME/MINUTES/CODES 08571, [id number], 35 minutes (09:40) Linda Archuleta OTR/[facility]
[2021-02-23] MEDS: QUEtiapine 25 MG TAB 12.5 MG PO ×2 (11:18→21:20)
[2021-02-23 13:40] LABS: Bilirubin Negative (Negative); Blood Negative (Negative); Clarity Sl Cloudy (Clear); Glucose Negative (Negative); Ketones Trace mg/dL (Negative); Leukocyte Esterase Negative (Negative); Nitrite Negative (Negative); Specific Gravity >= 1.030 (1.005-1.025); Urobilinogen 0.2 EU/dL (Up TO 0.2); pH 5.5 (5-8)
[2021-02-23 13:48] LABS: Bacteria Few HPF (Negative); Epithelial Cells Many HPF (Negative); RBC 0-2 HPF (0-2); WBC 0-2 HPF (0-5)
[2021-02-23 13:49] LABS: C & S Indicated? No/Sq. Contamination; Casts Negative LPF (Negative); Mucus Moderate (Negative)
--- NOTE | 2021-02-23 13:51 | W.PM.PROGNOT ---
Date of Service Date of service: 02/23/21 Time of Service: 13:52 Assessment and Plan Assessment and plan (1) Acute CVA (cerebrovascular accident): Status: Acute Assessment and plan: Acute ischemic L thalamic stroke. Continue asa/plavix. PT/OT/speech therapy. add statin. (2) Accidental overdose: Status: Resolved Assessment and plan: Patient is more awake, and I believe that the medications she had overdosed are no longer the cause of her sx. Mental health feels that she probably will need further psychiatric stabilization (?[facility]). However, not all of her speech issues are being attributed to psychosis as she has had a stroke. The patient is a voluntary admission until her disposition. (3) Elevated troponin: Status: Acute Assessment and plan: Per cardiology, unlikely to represent an ACS or even type 2 NSTEMI. It could be related to the CVA +/- mild rhabdo. Her echocardiogram showed a preserved LVEF (65%) and no wall motional abnormalities. There are no significant valvular issues. She has remained in NSR on the monitor. Tele resumed due to now suspected acute CVA. Outpatient MPI. (4) Hypokalemia: Status: Resolved Assessment and plan: Recheck in am (5) Hypomagnesemia: Status: Acute Assessment and plan: Replete, recheck in am (6) Left shoulder pain: Status: Acute Assessment and plan: XR with Arthritis of glenohumeral joint with humeral head osteophyte and degenerative changes AC joint. Continue tylenol, PT. (7) Right leg pain: Status: Acute Assessment and plan: No fx on XR. Does have OA. Tylenol for pain control. PT consulted. (8) Schizoaffective disorder: Status: Chronic Assessment and plan: increased agitation and restlessness today. add seroquel for symptoms sitter for safety as needed. (9) DVT prophylaxis: Status: Acute Assessment and plan: SC lovenox (10) Discharge planning issues: Status: Acute Assessment and plan: Full code Planned disposition to [facility] discussed with Dr Hemphill Subjective Subjective Patient reports: no new complaints and afebrile Interval history since last seen: medically stable. Exam Const General: cooperative and no acute distress Orientation: alert, awake and other (unable to assess) HENMT Head: normal to inspection and normocephalic Resp Effort & Inspection: normal respiratory effort Cardio Rate: regular rate Rhythm: regular rhythm GI Palpation: soft Skin General skin exam: no rashes or lesions noted Neuro Cognition: abnormal cognition Motor: muscle tone normal throughout Extrem General: normal to inspection and no pedal edema Objective Last Vital Signs Temp 35.2 C L 02/23/21 07:34 Pulse 89 02/23/21 07:34 Resp 16 02/23/21 07:34 BP 124/79 02/23/21 07:34 Pulse Ox 98 02/23/21 07:34 Laboratory Results - last 24 hr 02/23/21 13:15 Urine Color Yellow Urine Clarity Sl Cloudy Urine pH 5.5 Ur Specific [place] >= 1.030 H Urine Protein Trace H Urine Ketones Trace H Urine Blood Negative Urine Nitrite Negative Urine Bilirubin Negative Urine Urobilinogen 0.2 Ur Leukocyte Esterase Negative Urine RBC 0-2 Urine WBC 0-2 Ur Epithelial Cells Many Urine Crystals Urine Bacteria Few Urine Casts Negative Urine Mucus Moderate Ur Culture Indicated? No/Sq. Contamination Urine Glucose Negative
--- NOTE | 2021-02-23 14:23 | SPP_ITS ---
Date of service: 02/23/21 Time of Service: 14:24 Subjective Yaima was assessed in her room early afternoon, seated EOB with HOSPITAL INSURANCE CLERK present; received awake/alert. Not oriented, unable to state name. Presenting as very pleasant, cooperative, and responsive, however aphasic language patterns (perseveration, responses mainly in automatic phrases, and difficulties with following modeled instruction/commands) complicate therapeutic outcomes. Updated communication goals to ensure quality of life/caregiver comprehension of recommendations for enhancing communication abilities upon discharge. Precautions: Standard Objective/Assessment/Plan Objective Treatment Techniques & Outcomes: CORRECTION GOALS: 1. Patient will use safe swallow strategies to tolerate least restrictive diet without s/sx aspiration. 2. Patient will demonstrate functional communication for independent daily living. SHORT TERM GOALS: 1.1 Patient/caregiver will demonstrate understanding of education r/t aspiration precautions and safe swallow recommendations. NOT ADDRESSED ON THIS DATE 1.2 Patient will safely tolerate least restrictive diet of IDDSI level 6 soft/bite size solids and 0-thin liquids without s/sx aspiration. NOT ADDRESSED ON THIS DATE 2.1 NEW GOAL Patient will identify the correct word given 2 choices at 60% accuracy given frequent maximal visual cues. PROGRESS TO DATE AAC: instruction - modeled action of either pointing to answer or offered alternative response as tell me with your words if you can Field of 2 visual images: 40% acc, difficulties with following pointing command (?), able to verbalize the second and look at second (correct) option x2 or verbalize number one and look at first (correct) option x2 2.2 NEW GOAL Patient will demonstrate cloze phrase completion tasks at 60% accuracy given frequent maximal visual cues. PROGRESS TO DATE Numeral-based cloze phrase(s): 33% acc (13) (first, second, ___ > third) Other: 10% acc (05/04) (Happy birthday to ___ > you) 2.3 Patient will participate / sustain attention for 30-40 minutes during diagnostic treatment session(s) given min-mod verbal+visual cues from clinician for attention to task. PROGRESS TO DATE mod cues, 30 minutes Patient/Caregiver/Staff Education: Providers/Staff: Use AAC board or visual aids/physical objects when offering choices (maximum 2 choices) and to supplement verbal speech, in order to enhance patient comprehension Modeled this approach with HOSPITAL INSURANCE CLERK, good carryover during session (ie, HOSPITAL INSURANCE CLERK demonstrated physcially walking to toilet and pointing/modeling use of toilet vs verbally asking if Yaima needed to use the bathroom) Patient: Encourage patient to utilize gestures to express herself (may need to be modeled when appropriate) Assessment Diagnostic treatment session(s) on this date focused mainly on language comprehension/expression abilities, staff interview/education and trial of various low tech AAC (picture board, gestural communication). Attempted selected QAB and WAB-R Bedside tests as outlined below: QAB: Word Comprehension (partial): 0/4 accuracy Namin/6 accuracy Overall Communication Impairment: communication fragmentary; examiner carries majority of burden WAB-R Bedside: Spontaneous Speech/Fluency 1 = Recurrent, stereotypic utterances with meaningful intonation * notable use of gestural communication in 2 opportunities with L arm/hand during session Repetition 0/10 Auditory/Verbal Comprehension DNT formally due to time constraints Informal: Simple verbal instruction ie place the cup on the table' +1/2 acc (table located on R side; patient places cup on bed to L side - unclear if R neglect or aphasic error? - per OT, patient does demonstrate decreased gross and fine motor control of (R) UE, decreased strength of (R) UE, (R) UE neglect, impairment in (R) UE for ADLs, decreased ROM of (R) UE) Insight: Partial - self aware of frustration with communication - When provided with visual aids in field of 1 at a time, and asked if she is having difficulties with speaking: answers oh wow, yea; understanding: hmm, yea and initiates follow up question: I just don't know how long? Provided brief education re: aphasia, effects of CVA with visual/pictoral aids Attention: Improvements relative to 02/20; able to attend to tasks during 30 min session, mod verbal+visual cues required Memory: Difficult to assess Plan Plan: Continue METAL WIRE COATING OPERATOR services while on unit. Recommendations Recommendations: Communication: Yaima appears to respond well to visual models with repetition for following (some) commands - accuracy of comprehension increases when physical objects are utilized during conversation vs pictoral methods/communication boards at this time -Provide only 1 piece of information/question at a time. *If options must be presented, offer maximum of 2 options with visual/pictoral aids, and wait for response (patient may gaze towards choice, verbalize/identify numbered choice of provided options, ie 'first or second' or '1 or 2'); consider asking this question (in same presentation) again after a delay in order to verify choice -Provide contextual cues, gesture, picture reinforcement. -Establish topic clearly before engaging patient in conversation. -Redirect as necessary. Total Time Spent: 55 mins CPT Code: 61210 Speech / Hearing Therapy Coding
[2021-02-23 15:28] VITALS: BP 132/75; PULSE 82; RESP 18; TEMP 36.6; O2SAT 96
[2021-02-23 18:25] VITALS: BP 139/60
[2021-02-23 19:08] VITALS: BP 113/67; PULSE 83; RESP 18; TEMP 37; O2SAT 97
[2021-02-23] MEDS: Atorvastatin 40 MG TAB PO (21:22)
[2021-02-23] MEDS: Enoxaparin 40 MG/0.4 ML SYR SC (21:22)
[2021-02-23 23:36] VITALS: BP 130/84; PULSE 70; RESP 18; TEMP 36.4; O2SAT 98
[2021-02-24] MEDS: Levothyroxine 88 MCG TAB PO (05:16)
[2021-02-24 07:10] VITALS: BP 128/90; PULSE 85; RESP 18; TEMP 37.4; O2SAT 94
[2021-02-24] MEDS: Aspirin E.C. 81 MG TABEC PO (08:03)
[2021-02-24] MEDS: Ascorbic Acid 500 MG TAB 1000 MG PO ×2 (08:03→19:35)
[2021-02-24] MEDS: Acetaminophen 325 MG TAB 650 MG PO ×3 (08:03→19:33)
[2021-02-24] MEDS: Acetylcysteine 600 MG CAP 1200 MG PO ×2 (08:04→19:33)
[2021-02-24] MEDS: QUEtiapine 25 MG TAB 12.5 MG PO ×2 (08:04→19:35)
[2021-02-24] MEDS: Pantoprazole 40 MG TABCR PO (08:04)
[2021-02-24] MEDS: Clopidogrel 75 MG TAB PO (08:05)
[2021-02-24] MEDS: Multivitamin w/Minerals TAB 1 TAB PO (08:05)
--- NOTE | 2021-02-24 09:47 | OT.INTREAT ---
Date of service: 02/24/21 Time of Service: 08:40 Occupational Therapy Notes Occupational Therapy Inpatient Treatment Note Date: 02/24/21 PRECAUTIONS: Fall, Standard, Full SUBJECTIVE: Pt was sitting on side of her bed when OT arrived. She is confused with (R) UE hanging at her side and no use with her (R when performing her eating routine. Her eating routine appears (I), she does pocket her food. She is seeing FILENET P8 DEVELOPER as well. Handled cups on her tray which will be beneficial to her. OBJECTIVE: PAIN:no c/o pain THEREX: OT educated and trained pt in (R) UE AROM movements including crossing midline which pt struggled with, shoulder flexion, bicep curls, triceps, opening and closing with grasp and release of hands, gross motor exercises and abduction all performed 15x each with mod vc throughout. When verbally cued she is able to use her (R) UE but requires vc for performance. ASSESSMENT/PLAN: Pt presents with decreased safety awareness and inability to identify her (R) UE in space with a (R) UE neglect. She has decreased coordination and gross and fine motor control. Functionally she requires vc throughout session to have pt perform her functional mobility. OT goals moving forward with pt is to progress her functional (I) as much as possible. With cognitive deficit and decline in use of her (R) UE, as well as her decline in mental capability; OT feels that pt will need LTC and (A) with ADLs/IADLs when medically cleared per MD. TREATMENT CODES/TIME: 72030, 20 minutes (08:40) [facility]
[2021-02-24] MEDS: LORazepam 0.5 MG TAB PO ×3 (10:00→19:33)
[2021-02-24 10:15] VITALS: BP 181/94; PULSE 96; RESP 20; TEMP 37.1; O2SAT 96
--- NOTE | 2021-02-24 12:23 | W.PM.PROGNOT ---
Date of Service Date of service: 02/24/21 Time of Service: 12:23 Assessment and Plan Assessment and plan (1) Acute CVA (cerebrovascular accident): Status: Acute Assessment and plan: Acute ischemic L thalamic stroke. Continue asa/plavix. PT/OT/speech therapy. add statin. (2) Accidental overdose: Status: Resolved Assessment and plan: Patient is more awake, and I believe that the medications she had overdosed are no longer the cause of her sx. Mental health feels that she probably will need further psychiatric stabilization (?[facility]). However, not all of her speech issues are being attributed to psychosis as she has had a stroke. The patient is a voluntary admission until her disposition. (3) Schizoaffective disorder: Status: Chronic Assessment and plan: increased agitation and restlessness today. add seroquel for symptoms sitter for safety as needed. (4) DVT prophylaxis: Status: Acute Assessment and plan: SC lovenox (5) Discharge planning issues: Status: Acute Assessment and plan: Full code Planned disposition to [facility] discussed with Dr Hemphill Subjective Subjective Patient reports: no new complaints, tolerating liquids well, tolerating a regular diet and afebrile Interval history since last seen: remains restless but no behavioral issues Exam Const General: cooperative and no acute distress Orientation: alert, awake and other (unable to assess) HENME Head: normal to inspection and normocephalic Resp Effort & Inspection: normal respiratory effort Cardio Rate: regular rate Rhythm: regular rhythm GI Palpation: soft Skin General skin exam: no rashes or lesions noted Neuro Cognition: abnormal cognition Motor: muscle tone normal throughout Extrem General: normal to inspection and no pedal edema Objective Last Vital Signs Temp 37.1 C 02/24/21 10:15 Pulse 96 H 02/24/21 10:15 Resp 20 02/24/21 10:15 BP 181/94 H 02/24/21 10:15 Pulse Ox 96 02/24/21 10:15 Laboratory Results - last 24 hr 02/23/21 13:15 Urine Color Yellow Urine Clarity Sl Cloudy Urine pH 5.5 Ur Specific [place] >= 1.030 H Urine Protein Trace H Urine Ketones Trace H Urine Blood Negative Urine Nitrite Negative Urine Bilirubin Negative Urine Urobilinogen 0.2 Ur Leukocyte Esterase Negative Urine RBC 0-2 Urine WBC 0-2 Ur Epithelial Cells Many Urine Crystals Urine Bacteria Few Urine Casts Negative Urine Mucus Moderate Ur Culture Indicated? No/Sq. Contamination Urine Glucose Negative
[2021-02-24 15:21] VITALS: BP 129/66; PULSE 89; RESP 16; TEMP 36.6; O2SAT 96
--- NOTE | 2021-02-24 16:00 | SPP_ITS ---
Date of service: 02/24/21 Time of Service: 16:00 Subjective Yaima was contacted in her room early afternoon, lying in bed but alert and agreeable to participate in SLT session. HOB was elevated to upright position and patient participated in tabletop therapy activities. Continues unable to state name. Presenting as very pleasant, cooperative, and responsive, however aphasic language patterns (verbal perseveration and difficulties with following modeled instruction/commands) complicate therapeutic outcomes. Noting some increased diversity of verbal output this date, though continues with poor confrontational naming and repetition this date. Patient mentions her sister this date, appearing somewhat concerned about what may be wrong and how long she will be here. Objective/Assessment/Plan Objective Treatment Techniques & Outcomes: JELLY FILTER TENDER GOALS: 1. Patient will use safe swallow strategies to tolerate least restrictive diet without s/sx aspiration. 2. Patient will demonstrate functional communication for independent daily living. SHORT TERM GOALS: 1.1 Patient/caregiver will demonstrate understanding of education r/t aspiration precautions and safe swallow recommendations. NOT ADDRESSED ON THIS DATE 1.2 Patient will safely tolerate least restrictive diet of IDDSI level 6 so ft/bite size solids and 0-thin liquids without s/sx aspiration. NOT ADDRESSED ON THIS DATE, though per RN, patient has been with low solid PO intake (?attention vs appetite). Notes no s/sx aspiration with liquids. 2.1 Patient will identify the correct word given 2 visual choices at 60% accuracy given frequent maximal visual cues. PROGRESS TO DATE AAC: instruction - modeled action of either pointing to answer or offered alternative response as tell me with your words if you can Field of 2 visual images: 50% acc (+3/6), requires max redirection to provide pointing or eye gaze response, given noted persevorative responses three? when only 2 choices present. 2.2 Patient will demonstrate cloze phrase completion tasks at 60% accuracy given frequent maximal visual cues. NOT ADDRESSED THIS DATE: PRIOR PROGRESS as of 02/23/2021 Numeral-based cloze phrase(s): 33% acc (1/3) (first, second, ___ > third) Other: 10% acc (10) (Happy birthday to ___ > you) 2.3 Patient will participate / sustain attention for 30-40 minutes during diagnostic treatment session(s) given min-mod verbal+visual cues from clinician for attention to task. PROGRESS TO DATE Engaged patient in AAC/language task as above. Engaged patient in card sorting task. Presented stimuli from R side in order to recruit R attention and preclude errors 2/2 R neglect. Field of 2, color sorting: +10/10 (100%) - min cues once oriented to task Field of 4, suit sorting: +5/10 (50%) - max cues once oriented to task, requiring frequent re-orientation to field of 4 choices. Sustained attention: mod cues, 40 minutes Patient/Caregiver/Staff Education: Providers/Staff: Use AAC board or visual aids/physical objects when offering choices (maximum 2 choices) and to supplement verbal speech, in order to enhance patient comprehension Patient: Encourage patient to utilize gestures to express herself (may need to be modeled when appropriate) Assessment Diagnostic treatment session on this date focused mainly on language comprehension/expression abilities and sustained/visual attention. Patient with improved performance with visual attention/card sorting task>language comprehension/picture. Continues to benefit from reduced field of 2 (?visual attention/working memory) to provide responses. Noting some increased variety in spontaneous verbal production this date, though patient continues to struggle greatly with structured (i.e., confrontation-based)>naturalistic therapy tasks. Remains with partial, nonspecific insight into deficits. Plan Plan: Plan: Continue ELECTRICAL PROJECT MANAGER services while on unit 3-5x weekly. Recommendations Diet: 6-Soft & Bite Size(advanced/chopped) Liquids: 0-Thin Liquids Strategies/Adaptions: Upright and out of bed in a chair for all meals/snacks, Small bites, Small sips, Adapted cup (2 handle cup per Occupation Therapy recommendations), Feed in low-stimulation environment, Upright for at least 30 minutes after meal and Oral care at least 2x/day Supervision: Direct supervision via of [facility] staff, assist w/feeding and Direct Supervision via of [facility] staff,self-feeding Recommendations: Communication: Yaima appears to respond well to visual models with repetition for following (some) commands - accuracy of comprehension increases when physical objects are utilized during conversation vs pictoral methods/communication boards at this time -Provide only 1 piece of information/question at a time. *If options must be presented, offer maximum of 2 options with visual/pictoral aids, and wait for response (patient may gaze towards choice, verbalize/identify numbered choice of provided options, ie 'first or second' or '1 or 2'); consider asking this question (in same presentation) again after a delay in order to verify choice -Provide contextual cues, gesture, picture reinforcement. -Establish topic clearly before engaging patient in conversation. -Redirect as necessary. Total Time Spent: 45 minutes Treatment code: [address]92[address] [place] Coding
--- NOTE | 2021-02-24 19:13 | CMPROGNOTE_ITS ---
- If Service Date Differs Date of service: 02/24/21 Time of Service: 19:13 Care Management Progress Note S/O: Yaima was sitting up in her chair when CM met with her today. Jazmine, [facility], was also present. Yaima was able to communicate better today, although per Jazmine, she is still not at her previous baseline. CM discussed appointing a health care agent with Yaima, and she stated that her sister, Shanice, would be her trusted person to name. She was unable to sign, as her right side was affected by her CVA. CM spoke to [facility], today, who is considering her for admission, with a condition that [facility] would accept her after stabilization if alternate placement could not be arranged. Yaima is agreeable to going to [facility], although she is concerned about how long she will be there. CM will continue to follow. A: Yaima is a 65 year old female admitted to [facility] for drug OD, possible NSTEMI. P: Yaima is voluntary awaiting placement for inpatient psychiatric treatment, referral faxed to [facility]. She is currently not medically cleared for placement. Anticipate she will likely transport via [facility] vs EMS, depending on her presentation at the time of discharge. CM will continue to follow.
[2021-02-24] MEDS: Atorvastatin 40 MG TAB PO (19:33)
[2021-02-24] MEDS: Melatonin 3 MG TAB PO (19:35)
[2021-02-24] MEDS: Enoxaparin 40 MG/0.4 ML SYR SC (20:57)
[2021-02-25] MEDS: LORazepam 0.5 MG TAB PO ×2 (03:11→23:44)
[2021-02-25] MEDS: Acetaminophen 325 MG TAB 650 MG PO ×4 (04:00→20:54)
[2021-02-25] MEDS: Levothyroxine 88 MCG TAB PO (05:25)
[2021-02-25 08:13] VITALS: BP 153/67; PULSE 75; RESP 22; TEMP 36.4; O2SAT 96
[2021-02-25] MEDS: Ascorbic Acid 500 MG TAB 1000 MG PO ×2 (08:34→20:56)
[2021-02-25] MEDS: Pantoprazole 40 MG TABCR PO (08:34)
[2021-02-25] MEDS: Aspirin E.C. 81 MG TABEC PO (08:34)
[2021-02-25] MEDS: Multivitamin w/Minerals TAB 1 TAB PO (08:34)
[2021-02-25] MEDS: Clopidogrel 75 MG TAB PO (08:34)
[2021-02-25] MEDS: QUEtiapine 25 MG TAB 12.5 MG PO ×2 (08:34→10:19)
[2021-02-25] MEDS: Acetylcysteine 600 MG CAP 1200 MG PO ×2 (08:34→20:57)
[2021-02-25 12:08] VITALS: BP 141/81; PULSE 68; RESP 17; TEMP 36.4; O2SAT 94
--- NOTE | 2021-02-25 15:23 | W.PM.PROGNOT ---
Date of Service Date of service: 02/25/21 Time of Service: 15:23 Assessment and Plan Assessment and plan (1) Acute CVA (cerebrovascular accident): Status: Acute Assessment and plan: Acute ischemic L thalamic stroke. Continue asa/plavix. PT/OT/speech therapy. add statin. (2) Schizoaffective disorder: Status: Chronic Assessment and plan: increased agitation and restlessness today. increase seroquel dose helping symptoms sitter for safety as needed. (3) DVT prophylaxis: Status: Acute Assessment and plan: SC lovenox (4) Discharge planning issues: Status: Acute Assessment and plan: Full code Planned disposition to [facility] discussed with Dr eHmphill Subjective Subjective Patient reports: feels better, tolerating liquids well, tolerating a regular diet and afebrile Interval history since last seen: improved on increased dose of seroquel, remains medically stable. Exam Const General: cooperative and no acute distress Orientation: alert, awake and other (unable to assess) HENMT Head: normal to inspection and normocephalic Resp Effort & Inspection: normal respiratory effort Cardio Rate: regular rate Rhythm: regular rhythm GI Palpation: soft Skin General skin exam: no rashes or lesions noted Neuro Cognition: abnormal cognition Motor: muscle tone normal throughout Extrem General: normal to inspection and no pedal edema Objective Last Vital Signs Temp 36.4 C L 02/25/21 12:08 Pulse 68 02/25/21 12:08 Resp 17 02/25/21 12:08 BP 141/81 H 02/25/21 12:08 Pulse Ox 94 02/25/21 12:08
--- NOTE | 2021-02-25 15:26 | DSE_ITS ---
Date of service: 02/26/21 DS: Diagnosis Discharge Diagnosis (1) Acute CVA (cerebrovascular accident): Status: Acute (2) Schizoaffective disorder: Status: Chronic Discharge Plan Disposition Patient Disposition: OTHER Condition: Stable Discharge Details Reason For Visit: Drug OD,Possible NSTEMI Admit Date/Time: 02/17/21 16:01 Admit Provider: Israel Greco Attending Provider: Israel Greco Primary Care Provider: Dillon Scott Hospital Course Hospital Course: This is a 65 year old female who presented to the ED after a neighbor stopped in for a welfare check and found her to have altered mental status. She reportedly was thought to have taken an accidental overdose of her buspar and clozapine. her work up in the ED did not reveal any infectious etiology or other medical condition to explain her symptoms. She remained a poor historian, with acute psychosis. She was admitted to med/surg for further monitoring and evaluation and was to be evaluated by mental health when medically cleared. on further imaging and evaluation she was found to have concern on MRI for CVA. Neurology consult placed and recommendations for DAPT which was initiated. she was started on seroquel with some improvement in her symptoms. She remained restless but able to redirect with no behavioral issues. she had expressive aphasia with question of receptive aphasia. She remained medically stable and was eating and drinking well. case management following and referral placed to [facility] which she was accepted and will be discharged for medication stabilization. discharge discussed with Dr Hemphill [facility] and New Rx's Prescriptions: New quetiapine 25 mg Tablet 25 mg PO BID Qty: 0 RF: 0 atorvastatin 40 mg Tablet 40 mg PO QPM Qty: 0 RF: 0 clopidogrel 75 mg Tablet 75 mg PO DAILY Qty: 0 RF: 0 aspirin 81 mg Tablet,Delayed Release (Dr/Ec) 81 mg PO DAILY Qty: 0 RF: 0 Continued ascorbic acid (vitamin C) 1,000 mg tablet 1 g PO BID RF: 0 tolterodine [Detrol] 1 mg tablet 1 mg PO HS Qty: 90 RF: 3 famotidine [Pepcid] 40 mg tablet 40 mg PO DAILY Qty: 90 RF: 4 lorazepam 0.5 MG tablet 0.5 mg PO TID RF: 0 Restasis MultiDose 0.05 % drops 1 drp OP Q12H Qty: 5.5 RF: 1 psyllium husk [Wal-Mucil Fiber] 0.52 gram capsule 0.52 g PO DAILY Qty: 100 RF: 3 multivitamin with iron Tablet 1 tab PO DAILY Qty: 90 RF: 3 levothyroxine 88 mcg tablet 88 mcg PO DAILY Qty: 90 RF: 3 acetylcysteine [NAC] 600 mg capsule 1,200 mg PO BID RF: 0 Changed melatonin 3 mg capsule 3 mg PO HS Qty: 0 RF: 0 Discontinued clozapine 100 MG tablet 100 mg PO HS RF: 0 No Action diphenhydramine-acetaminophen [Tylenol PM Extra Strength] 25-500 mg tablet 1 tab PO QHS PRNRF: 0 loperamide 2 mg capsule 2 mg PO Q8H PRN Qty: 90 RF: 5 Calcium 600 with Vitamin D3 600 mg(1,500mg) -400 unit tablet,chewable 1 tab PO DAILY Qty: 90 RF: 3 omega-3 fatty acids 1,000 mg capsule 1,000 mg PO BID RF: 0 acetylcysteine [NAC] 600 mg capsule 1,200 mg PO BID RF: 0 mupirocin 2 % ointment 1 applic Topical BID PRN (Reason: rash in groin) Qty: 22 RF: 0 loperamide [Imodium A-D] 2 mg tablet 2 mg PO Q4H PRN (Reason: loose stool) Qty: 30 RF: 2 ibuprofen 600 mg tablet 600 mg PO Q8H PRN (Reason: pain) Qty: 90 RF: 0 loratadine [Claritin] 10 mg tablet 10 mg PO DAILY Qty: 90 RF: 4 bupropion HCl 150 mg tablet sustained-release 12 hr 150 mg PO QAM RF: 0 Discharge Instructions Instructions: Schizoaffective Disorder (DC), Stroke (DC) Stand Alone Forms: Nursing Discharge Form Activity:: Activity as Tolerated Equipment/Supplies:: No Equipment Needed Diet:: As Tolerated Discharge Orders Discharge Orders: Discharge Order (Routine); Ordered 02/26/21 Ordered By: Maura Amaro Discharge Data Discharge Date/Time-TO BE ENTERED AT DEPARTURE: 02/26/21 09:04 DS: Summary Time Spent with Patient providing and/or coordinating discharge services: Greater than 30 minutes Status at Discharge Functional status at discharge: independent ambulation Overall status at discharge: patient is not back to baseline Mental Status: other (confused) Speech and Movement: delayed speech and pressured speech Mood: other Affect: indifferent Exam Const General: cooperative and no acute distress Orientation: alert, awake and other (unable to assess) HENMT Head: normal to inspection and normocephalic Resp Effort & Inspection: normal respiratory effort Cardio Rate: regular rate Rhythm: regular rhythm GI Palpation: soft Skin General skin exam: no rashes or lesions noted Neuro Cognition: abnormal cognition Motor: muscle tone normal throughout Extrem General: normal to inspection and no pedal edema Psych Mental Status: other Speech and Movement: delayed speech and pressured speech Mood: other Affect: indifferent DS: Data Vitals/I&O Vitals and I&O: Vital Signs Temperature 36.4 C L 02/25/21 12:08 Temperature Source Tympanic 02/25/21 12:08 Pulse 68 02/25/21 12:08 Pulse Rhythm Regular 02/25/21 08:13 Pulse 86 02/16/21 06:20 Respiratory Rate 17 02/25/21 12:08 Respiratory Effort 02/25/21 08:13 Respiratory Depth Normal 02/25/21 08:13 Respiratory Pattern Normal 02/25/21 08:13 Blood Pressure 141/81 H 02/25/21 12:08 Blood Pressure Mean 77 02/16/21 06:01 Pulse Oximetry 94 02/25/21 12:08 Oxygen Delivery Method Room Air 02/25/21 12:08 Oxygen Flow Rate 0 02/25/21 12:08 Pain Level 0 02/24/21 07:10 Comment 02/25/21 12:08 Intake & Output 02/24/21 02/25/21 02/25/21 23:59 11:59 23:59 Intake Total 240 / 240 Balance 240 / 240 Weight 67 kg Intake: Oral 240 / 240 Other: Urine Color Dark Skylar Urine Appearance Cloudy Urine Odor Normal Comment Patient voided in toilet x1 with assistance from OIL ANALYST. Stool Size Smear Small Stool Characteristics Soft Brown Voiding Methods Toilet Data Completed and Pending Labs on day of discharge: Labs from last 24 hours 02/25/21 15:11 COVID-19 Source Pending SARS-CoV-2 (PCR) Pending [facility] Medical History Bilateral knee pain Chronic diarrhea Degenerative joint disease of left hip Degenerative joint disease of right hip Folliculitis GERD (gastroesophageal reflux disease) Hip pain, right Hx MRSA infection Hx of malignant neoplasm of vagina Hypothyroidism Left knee DJD Most recent injection: 08/18/20; 03/31/2020 Leg swelling Osteoarthritis Schizoaffective disorder Urge urinary incontinence Surgical History Colonoscopy - MAC (01/12/11) Colonoscopy - MAC (02/14/17) Social History Smoking/Tobacco Use Status: Current every day Smoking risk assessment performed?: Yes Drug use: Never Do you feel safe at home: Yes Additional Social history: pts neighbor is observant of her and is here with her
[2021-02-25 15:56] LABS: Source Nasal/Nares
[2021-02-25 16:04] VITALS: BP 140/80; PULSE 82; RESP 19; TEMP 36.6; O2SAT 95
[2021-02-25 16:49] LABS: COVID-19 PCR Negative (Negative)
--- NOTE | 2021-02-25 17:49 | CMPROGNOTE_ITS ---
- If Service Date Differs Date of service: 02/25/21 Time of Service: 17:50 Care Management Progress Note S/O: Yaima was sitting up in her chair when CM met with her. Her speech was more clear today than it was yesterday, as she was able to complete sentences during the conversation. She reports feeling frustrated with not knowing how long she will need to be hospitalized. CM talked to her sister, Shanice today, who reported that she is happy to be her sister's health care agent, but she is not able to be her guardian. CM faxed additional paperwork to [facility], who accepted her for admission tomorrow morning. CM coordinated EMS transport at 9am via [employer]. CM informed M/S of this plan, and asked for a repeat Covid test prior to her transfer. CM will continue to follow. A: Yaima is a 65 year old female admitted to [facility] for drug OD, possible NSTEMI. P: Yaima is voluntary awaiting placement for inpatient psychiatric treatment, referral faxed to [facility]. She is currently not medically cleared for placement. Anticipate she will likely transport via [facility] vs EMS, depending on her prese ntation at the time of discharge. CM will continue to follow.
[2021-02-25 19:10] VITALS: BP 154/73; PULSE 77; RESP 19; TEMP 36.1; O2SAT 96
[2021-02-25] MEDS: QUEtiapine 25 MG TAB PO (20:55)
[2021-02-25] MEDS: Atorvastatin 40 MG TAB PO (20:57)
[2021-02-26] MEDS: Levothyroxine 88 MCG TAB PO (06:47)
[2021-02-26] MEDS: Acetylcysteine 600 MG CAP 1200 MG PO (08:22)
[2021-02-26] MEDS: QUEtiapine 25 MG TAB PO (08:23)
[2021-02-26] MEDS: Pantoprazole 40 MG TABCR PO (08:23)
[2021-02-26] MEDS: Clopidogrel 75 MG TAB PO (08:23)
[2021-02-26] MEDS: Aspirin E.C. 81 MG TABEC PO (08:23)
[2021-02-26] MEDS: Acetaminophen 325 MG TAB 650 MG PO (08:24)
--- NOTE | 2021-02-26 09:02 | OT.INDS ---
Date of service: 02/26/21 Time of Service: 08:40 Occupational Therapy Notes Occupational Therapy Inpatient Discharge Summary Date: 02/26/21 Dates of Service: 02/23/21-02/26/21 Referring Doctor:Dr. Mathew OT Orders: Non Urgent Precautions: Fall, standard, full PATIENT PROFILE/ADMITTING DIAGNOSIS: Pt is a 65 year old female who was admitted through the ED with the following dx of acute CVA, schizoaffective disorder, (R) leg pain, (L) shoulder pain, hypomagnesemia, hypokalemia, accidental overdose, AMS, depression, hypokalemia, elevated troponin, hematuria. Past Medical History: Medical History Bilateral knee pain Chronic diarrhea Degenerative joint disease of left hip Degenerative joint disease of right hip Folliculitis GERD (gastroesophageal reflux disease) Hip pain, right Hx MRSA infection Hx of malignant neoplasm of vagina Hypothyroidism Left knee DJD Most recent injection: 08/18/20; 03/31/2020 Leg swelling Osteoarthritis Schizoaffective disorder Urge urinary incontinence Surgical History Colonoscopy - MAC (01/12/11) Colonoscopy - MAC (02/14/17) Social History/Home Situation: Unable to assess pt is a poor historian Equipment owned/DME: Unable to assess SUBJECTIVE: Pt was sitting in chair when OT arrived. She is repeating herself telling OT about her morning. RN is attempting meds. OBJECTIVE: General Observation: Pleasant, bruising on arms and legs, (R) side neglect with improvements since initial consult. Mental Status: Alert to name ROM: RUE (R) side neglect, PROM WFL, AROM decreased coordination and motor control, tends to swing her (R) UE with decreased body awareness L UE AROM WFL STRENGTH: RUE manager wastewater unable to test as pt cannot follow vc/commands, shoulder flexion, bicep and tricep 2+/5 LUE 5/5 throughout FUNCTIONAL MOBILITY/ADLS: Transfers with SBA with OT for safety and mod vc ADLs not performed at todays session but summary of care from previous sessions: BATHING max (A) set up/clean up and mod vc throughout for performance Bathing UE (I) face, mod (A) (B) UE, min (A) abdomen Bathing LE (I) (B) LE and min (A) evangelist area by INSPECTOR BOILER post commode use DRESSING sitting on side of the bed Dressing UE Max (A) doffing t-shirt, min (A) doffing and donning [facility] gown Dressing LE min (A) doffing pants, (I) donning (B) socks GROOMING (I) with brushing hair but requires mod vc for performance TOILETING Pt requires min (A) for commode and toileting hygiene EATING NT Therapeutic Exercise [id number]: (Performed todays session) Sitting in chair pt performed (R) UE AROM movements including crossing midline which pt struggled with, shoulder flexion, bicep curls, triceps, opening and closing with grasp and release of hands, gross motor exercises and abduction all performed 15x each with mod vc throughout. When verbally cued she is able to use her (R) UE but requires vc for performance. Pt continues to lack motor control and coordination of her (R) post CVA. BALANCE: Static sitting Normal Dynamic Sitting Good Static Standing Good Dynamic Standing Fair-Good ASSESSMENT: Patient is a 65-year-old female referred to occupational therapy services with diagnosis of acute CVA, schizoaffective disorder, (R) leg pain, (L) shoulder pain, hypomagnesemia, hypokalemia, accidental overdose, AMS, depression, hypokalemia, elevated troponin, hematuria. Patient presents with clinical signs and symptoms consistent with dx, as demonstrated by the following impairment level findings/ functional limitations: Impairments in ADL/IADL activities, cognitive awareness deficits, decreased safety awareness, decreased gross and fine motor control of (R) UE, decreased strength of (R) UE, (R) UE neglect, impairment in (R) UE for ADLs, decreased ROM of (R) UE, requires vc for performance and initiation of ADLs. Pts cognitive deficit limits her from performing her functional ADLs (I) and pt requires vc for performance. GOALS 1. Transfers with FWW (I)- not met with FWW as pt cannot use the FWW with her (R) UE 2. Dressing sitting in chair min (A)- progressing towards but requires mod-max vc 3. Bathing standing at sink min (A)- not met 4. Toileting on toilet min (A)- met 5. Eating (I)- met PLAN OF CARE/TREATMENT PLAN: Discharging today and medically cleared per MD to [facility]. DISCHARGE RECOMMENDATIONS Pt is not (I) at her baseline level of function and she will require LTC/assistance with her ADLs when medically cleared per MD. She is a high risk of re-admission and requires vc for safety awareness. OT will continue to assess pt as she progresses. TREATMENT TIME/MINUTES/CODES [id number], 20 minutes (08:40) Linda Arhculeta OTR/[facility]
--- NOTE | 2021-02-26 12:35 | CMDISCH_ITS ---
- If Service Date Differs Date of service: 02/26/21 Time of Service: 12:35 LACE Index Scoring Tool - Questions: Length of Stay (in days): 7 - 13 Acuity (Admit via E.D.?): Yes Comorbidities: Cerebrovascular Disease E.D. Visits: 1 - Answers: Total Score: 10 Risk of Readmission: High Risk Care Management Discharge Reason for Hospitalization: drug OD, possible NSTEMI Discharge Plan: Yaima transferred to [facility] today, for their geriatric psych program. She was transported via [facility]. She may return to [facility] if she is not able to return home upon stabilization. CM discussed this plan with her sister, Shanice, who is her health care agent, and with Yaima, who was agreeable to treatment. She will follow up with her PCP and discharge plan of care. Patient/Family Education Needs: Review discharge instructions, discussion of self care needs including ask me three. Services Needed at Discharge: Psychiatric Facility ([facility]), [facility]
== END 2021-02-26 09:04 | disposition other institution (70) | DRG 917 ==
LOC: ER 21:52 → ICU 22:20 → MS 02-17 10:11 → ICU 02-17 12:57
PROVIDERS: Internal Medicine; Nurse Practitioner Acute Care; Admitting Provider General Practice; Emergency Provider Physician Assistant; PCP Family Medicine; Visit Provider General Practice
DX: T43.591A Poisoning by other antipsychotics and neuroleptics, accidental (unintentional), initial encounter (principal); I63.9 Cerebral infarction, unspecified; T42.4X1A Poisoning by benzodiazepines, accidental (unintentional), initial encounter; R47.01 Aphasia; F25.9 Schizoaffective disorder, unspecified; R41.82 Altered mental status, unspecified; K52.9 Noninfective gastroenteritis and colitis, unspecified; M16.0 Bilateral primary osteoarthritis of hip; K21.9 Gastro-esophageal reflux disease without esophagitis; M17.12 Unilateral primary osteoarthritis, left knee; R60.0 Localized edema; N39.41 Urge incontinence; Z20.822 Contact with and (suspected) exposure to COVID-19; E87.6 Hypokalemia; E83.42 Hypomagnesemia; R74.8 Abnormal levels of other serum enzymes; M25.512 Pain in left shoulder; E03.9 Hypothyroidism, unspecified
CPT/HCPCS: 36415; 36416; 70496; 70498; 70552; 73552; 73562; 80048; 80053; 80061; 80307; 82550; 82962; 85027; 85652; 87635; 92610; 93005; 93306; 96361; 96365; 96366; 96368; 97110; 97167; 97535; 99221; 99223; 99233; 99285; J1650; 70450; 70551; 71045; 72170; 73030; 80320; 80329; 81003; 81015; 83605; 83735; 84439; 84443; 84484; 85025; 85730; 86140; 92507; 92523; 93010; 99219; 99226; 99232; G0378; J1200; J1630; J2060; J3475; J3480; J3490

== ENCOUNTER → 2021-02-16 07:58 | Outpatient (BNVA) | payer MEDICARE, SELFPAY | PROVIDERS: PCP Family Medicine; Referring Provider Family Medicine; Visit Provider Internal Medicine Cardiovascular Disease | DX: R69 Illness, unspecified (principal) ==

== ENCOUNTER 2021-03-30 14:29 | Inpatient (IN) | payer MEDICARE, SELFPAY ==
[2021-03-30 15:57] VITALS: BP 134/82; PULSE 95; RESP 20; TEMP 36; O2SAT 96
[2021-03-30 16:03] VITALS: BP 134/84; PULSE 98; RESP 20; TEMP 36; O2SAT 96
[2021-03-30 16:11] VITALS: BP 134/82; PULSE 98; RESP 20; TEMP 36; O2SAT 96
[2021-03-30 17:00] LABS: Source Nasal/Nares
[2021-03-30 17:43] LABS: COVID-19 PCR Negative (Negative)
[2021-03-30] MEDS: Atorvastatin 40 MG TAB PO (20:31)
[2021-03-30] MEDS: Sennosides/Docusate Sodium TAB 1 TAB PO (22:30)
[2021-03-30 23:05] VITALS: BP 133/82; PULSE 81; RESP 18; TEMP 36.7; O2SAT 97
[2021-03-31] MEDS: Levothyroxine 88 MCG TAB PO (06:23)
[2021-03-31] MEDS: Lidocaine 5% Patch 1 PATCH TP (07:55)
[2021-03-31] MEDS: buPROPion-CR 100 MG TABCR PO (07:56)
[2021-03-31] MEDS: Calcium 600mg/Vit D 200U TAB 1 TAB PO (07:56)
[2021-03-31] MEDS: Aspirin E.C. 81 MG TABEC PO (07:56)
[2021-03-31] MEDS: Clopidogrel 75 MG TAB PO (07:56)
[2021-03-31] MEDS: Famotidine 20 MG TAB PO (07:56)
[2021-03-31 08:04] VITALS: BP 115/75; PULSE 93; RESP 16; TEMP 36; O2SAT 96
--- NOTE | 2021-03-31 08:33 | OT.INIE ---
Occupational Therapy Notes Inpatient Occupational Therapy Evaluation Date: 03/31/21 Referring Doctor:Laura Mathew MD OT Orders: Non Urgent Precautions: Fall, standard, full PATIENT PROFILE/ADMITTING DIAGNOSIS: Pt is a 65 year old female who was admitted through [facility] from [facility] [place] with the following dx of acute CVA, schizoaffective disorder, (R) leg pain, (L) shoulder pain, hypomagnesemia, hypokalemia, accidental overdose, AMS, depression, hypokalemia, elevated troponin, hematuria. Past Medical History: Bilateral knee pain Chronic diarrhea Degenerative joint disease of left hip Degenerative joint disease of right hip Folliculitis GERD (gastroesophageal reflux disease) Hip pain, right Hx MRSA infection Hx of malignant neoplasm of vagina Hypothyroidism Left knee DJD Most recent injection: 08/18/20; 03/31/2020 Leg swelling Osteoarthritis Schizoaffective disorder Urge urinary incontinence Surgical History Colonoscopy - MAC (01/12/11) Colonoscopy - MAC (02/14/17) Social History/Home Situation: Pt states that she lives alone. She states that she did just come from the [facility] [place] but feels that she is (I) and wants to be (I). She notes that she will do anything any thing that she needs to. Per CM she has a supportive sister who lives in another state and a neighbor who checks on her frequently. Equipment owned/DME: Unable to assess SUBJECTIVE: Pt was sitting in chair when OT arrived. She is pleasant and states that she is having a good day and thinks she may need to go to the bank to pay her bills. She is wondering what the next step is for her to return home. OBJECTIVE: General Observation: Pleasant and able to carry communication appropriately. Bruising on her glutes noted when standing at sink and performing her bathing, pt states that this is because she is on blood thinners. Mental Status: A&Ox3 ROM: RUE AROM WFL L UE AROM WFL STRENGTH: RUE 4+/5 throughout LUE 5/5 throughout FUNCTIONAL MOBILITY/ADLS: Transfers she refuses FWW with OT Sit-Stand (I) Stand-sit (I) Bed-Chair (I) Chair-bed (I) BATHING standing at the sink pt performed her bathing for UE and LE (I) with good safety awareness and hand support if needed. Pt was able to tolerate standing the whole time with good balance and no assistance needed. DRESSING standing at sink pt was able to (I) don her shirt and her pants without (A). She utilized hand support as needed and verbalized that she needed support for good balance to prevent falls demonstrating good safety awareness. GROOMING standing at sink without HHS pt was able to brush her teeth with ideal technique. TOILETING on toilet- (I) toileting hygiene. On toilet pt donned and doffed her (B) socks, new underwear and pulled her pants up (I). EATING sitting in chair (I) with eating, (I) food to mouth and opening and closing containers. BALANCE: Static sitting Normal Dynamic Sitting Normal Static Standing Normal Dynamic Standing Good SPECIAL TESTS: Daily Activity Limitations Standardized Measure [facility] AM -PAC ?6 clicks? Daily Activity Inpatient Short Form: Raw score: 23 INFORMED CONSENT/EDUCATION: Pt instructed in purpose of OT Consult and plan of care. ASSESSMENT: Patient is a 65-year-old female referred to occupational therapy services with diagnosis of acute CVA, schizoaffective disorder, (R) leg pain, (L) shoulder pain, hypomagnesemia, hypokalemia, accidental overdose, AMS, depression, hypokalemia, elevated troponin, hematuria after coming to [facility] via SWG B1. Patient is assessed as a Low 44243 complexity based on the following: History: see above Examination: see functional functional limitations as noted above Presentation: evolving Decision Making: [facility] score 23 GOALS- N/A PLAN OF CARE/TREATMENT PLAN: At todays initial evaluation pt was able to demonstrate ideal (I) with performance of her ADL/IADL routines. She was (I) with dressing, eating, grooming and bathing. She recognized times of need for support and provided herself with hand held support as needed while standing at the sink. Based on pts performance at todays initial evaluation, and her (I) in the hospital setting OT will plan to discharge pt at this time. DISCHARGE RECOMMENDATIONS When medically cleared per MD, OT recommends that pt could return home with support from HHOT services for assessment of her DME needs in the home setting and home set up. OT also recommends that pt also have meals on wheels. Physical Therapy will assess pts functional mobility for further assessment at this time. TREATMENT TIME/MINUTES/CODES 40717, [id number], 45 minutes (08:15) Linda Archuleta, OTR/[facility]
--- NOTE | 2021-03-31 09:58 | IN_ITS ---
Date of service: 03/31/21 Time of Service: 09:58 PT Notes Visit Reasons: Schizoaffective Disorder Physical Therapy Inpatient Initial Evaluation Date: 03/31/2021 Referring Doctor: Maura Amaro NP PT Orders: PT CONSULT: Eval/treat Precautions: Fall. Standard. Activity as tolerated. Patient Profile/Admitting Diagnosis: Yaima is a 65-year-old female with schizoaffective disorder who was initially admitted to this hospital on 02/15/2021 and needed to be sent to [facility] on 02/26/2021 for medical and psychiatric re-stabilization. She returns to this hospital for continued rehabilitation of left thalamic ischemic stroke to determine best and safest discharge destination. PMHX: Medical History Bilateral knee pain Chronic diarrhea Degenerative joint disease of left hip Degenerative joint disease of right hip Folliculitis GERD (gastroesophageal reflux disease) Hip pain, right Hx MRSA infection Hx of malignant neoplasm of vagina Hypothyroidism Left knee DJD Most recent injection: 08/18/20; 03/31/2020 Leg swelling Osteoarthritis Schizoaffective disorder Urge urinary incontinence Surgical History Colonoscopy - MAC (01/12/11) Colonoscopy - MAC (02/14/17) Social History/Home Situation: Per initial case management notes, Yaima lives alone in an apartment in [place] and had received mental and psychiatric counseling locally. Sister lives close by and is supportive. Equipment Owned/DME: None Subjective: Agreeable to PT consult. Reports discomfort in her right hip and states that this hip may be due to for another injection by Dr. Barber again, unsure of when the last one was. Indicates that she has a pain patch on her right hip currently which seems to help. Expecting that a window caser named Jace is meeting with her personally at the [facility] and she is wondering how she can get there today. Case Inez Sanches and Nurse Yamel made aware of this matter. Admits to feeling weak and needing some strengthening while on admission here. Objective: General Observation: Seated on chair. In NAD. No lines. Mental Status: Alert and oriented as to person, place, time, and purpose. Able to pay attention and respond appropriately. Pain: 3-4/10 in R hip with ambulation ROM: Right Upper Extremity: Shoulder Flexion WFL. Shoulder abduction WFL. Elbow flexion WFL. Wrist flexion WFL. Functional opening and closing of hand WFL. Left Upper Extremity: Shoulder Flexion WFL. Shoulder abduction WFL. Elbow flexion WFL. Wrist flexion WFL. Functional opening and closing of hand WFL. Right Lower Extremity: Hip flexion WFL. Hip abduction WFL. Knee flexion WFL. Ankle dorsiflexion WFL. Ankle plantarflexion WFL. Left Lower Extremity: Hip flexion WFL. Hip abduction WFL. Knee flexion WFL. Ankle dorsiflexion WFL. Ankle plantarflexion WFL. Strength: Right Upper Extremity: Shoulder flexors 4/5. Shoulder abductors 4/5. Elbow flexors 4/5. Elbow extensors 4/5. Gizzard Skin Remover strong. Left Upper Extremity: Shoulder flexors 4/5. Shoulder abductors 4/5. Elbow flexors 4/5. Elbow extensors 4/5. Gizzard Skin Remover strong. Right Lower Extremity: Hip flexors 4-/5. Hip abductors 4-/5. Knee flexors 4-/5. Knee extensors 4-/5. Ankle dorsiflexors 4-/5. Ankle plantarflexors 4-/5. Left Lower Extremity: Hip flexors 4/5. Hip abductors 4/5. Knee flexors 4/5. Knee extensors 4/5. Ankle dorsiflexors 4/5. Ankle plantarflexors 4/5. Bed Mobility/Transfers: Sit to stand supervision Stand to sit supervision Bed to reclining chair supervision. Insisted on placing the reclining chair lever custodial which resulted to the leg part moving up and down. She was strongly advised that it is not safe to do so. Made sure that chair alarm is in place and working. Gait: Instructed patient with level surface ambulation of 230 feet requiring standby assist. Gait on right antalgic. Step height and length on the right decreased. Minimal path deviation seen. Balance: Static Sitting: Normal Dynamic Sitting: Normal Static Standing: Good Dynamic Standing: Fair Special Tests: Mobility Limitations Standardized Measure [facility] 6 clicks Basic Mobility Inpatient Short Form: Raw Score: 21 CMS Score: 29% deficit 4-Stage Balance Test: Unable to maintain all 4 positions safely. Informed Consent/Education: Patient was instructed in purpose of PT consult and plan of care. Agreeable to proceed with established PT POC to achieve personal goals. Assessment: Significant improvement with mental status and ability to follow instructions since return from agreeable. Pain in the right hip and late effects of left thalamic ischemic stroke may be contributing to ambulation difficulty. Patient presents with clinical signs and symptoms consistent with current/admitting diagnoses that have resulted to mobility limitations, gait instability, generalized weakness, and overall ADL decline as demonstrated by the following impairment level findings: 1. Decreased strength to B LE (R>>L) major muscle groups 2. Impaired standing balance 3. Impaired activity tolerance Impairments are contributing to the following functional limitations: 1. Difficulty with ambulation 2. Increased completion time for mobility ADL performance 3. Increased risk for falls 4. Difficulty with managing steps alone safely Patient is assessed as a 31298 moderate complexity based on the following: History: 65-year-old female with past medical history as indicated above Examination: Demonstrable impairment in strength, balance, and mobility level with underlying impairments and functional limitations as exhibited above as well as deficit score of 29% utilizing the [facility] Mobility Inpatient Short Form Presentation: Stable Decision Makin moderate complexity Goals: Goals X1 week 1. Supine-Sit independent 2. Sit-Supine independent 3. Sit-Stand independent 4. Stand-Sit independent with no AD 5. Bed-Chair independent with no AD 6. Chair-Bed independent with no AD 7. Independent gait on level surface with use of no AD for at least 500 feet without report of pain nor dyspnea 8. Good static and dynamic standing balance/tolerance Plan of Care/Treatment Plan: 1-2x/day, 7 days/week x 1 week. Plan of care has been reviewed with the LAUNDRY AGENT providing the service under Physical Therapy direction. Initiate Physical Therapy intervention for pain management as needed, strengthening, bed mobility, transfers, gait, stairs, balance training, and use of assistive device. DISCHARGE RECOMMENDATIONS: [] Home with no services [] [] Home with services [specify] [] Home with outpatient PT [] [] SNF for continued rehabilitation [] [] Music Therapist Care [] [] SNF versus LTC based on ability to participate and progress [] [X] Consider placement in an AFC home/supervised home to ensure safe/consistently accurate medication management and PT to provide caregiver education/training on HEP and fall reduction strategies at D/C destination. TREATMENT CODE/TIME: 9716 2 x 26 minutes beginning at 9:58 AM. Thank you for the opportunity to participate in the care of this patient. Mabel Jordan PT, DPT, CLT [facility] [place], [place]
--- NOTE | 2021-03-31 14:25 | PHACLINREV_ITS ---
Pharmacy Admission Review - Admission Clinical Review chlorpheniramine Allergy (Verified 02/15/21 16:57) erythromycin base Allergy (Verified 02/15/21 16:57) Penicillins Allergy (Verified 02/15/21 16:57) Resuscitation Status Full Code Height 5 ft 6.14 in Weight 69.4 kg Schizoaffective Disorder - Comments Comments/Follow Ups: Direct admission from [facility] s/p CVA, RITESH working on placement. Likely transition to [facility] level-2, Verified Clozapine dispense authorization #[id number], was previously at [facility] and they made some med adjustments. No anticoagulation noted at this time, mobilization, no H&P - Renal Dosing Medications needing adjustments: Reviewed (CrCl>60ml/min) - Anticoagulation DVT Prophylaxis: N/A Medications: Aspirin (ASA 81mg daily, Plavix) - Opiate Usage Evaluate Pain Scale/Pains Meds: N/A - BP Control BP Control: Blood Pressure 115/75 - Current meds Current Medication Order Review: Reviewed (Bupropion SR dose is 100mg daily (per external fill list it was 150mg SR daily in January, but has since had some med adjustments during stay at [facility]-per Maura Amaro))
--- NOTE | 2021-03-31 15:58 | CHAPLAIN ---
Yaima is on swing bed status after returning from a stay with [facility] to stabilize medications. She is dressed in her own clothes and sitting up in the chair when I visited. Her speech is slow but clear. She asked for some water, and had asked Care management for glasses, envelopes and playing cards. I explained my role and offered support. I will continue to visit.
--- NOTE | 2021-03-31 16:20 | PDOC.CMPRO ---
- If Service Date Differs Date of service: 03/31/21 Time of Service: 16:20 Care Management Progress Note S/O: Yaima was sitting up in the chair in her room, fully dressed when CM met with her. She shared that she had an appointment to talk to Jace Daily, COA/SHIP, and asked for CM to be present for the call. She addressed concerns regarding insurance with Jace, who stated that CM or Abraham could assist her to submit an application for TIMOTHY, although she may be over income, (she reportedly receives $1618/mo from SSI) making her ineligible. CM faxed a referral to Abraham for assistance in coordinating Yaima's discharge home, including support with TIMOTHY eligibility to increase services in Yaima's home. Yaima expressed that her goal is to return home, and is willing to have additional support in the home/community in order for her to be successful. She states that she is missing her dog, Eric, a pug, whom her friend, Sherita is watching during her hospitalization. CM discussed correction goals with Yaima, including the potential for Yaima to move into 'Senior Housing' vs assisted living in the near future. Yaima expressed that she would like to return home, but is willing to be put on a wait list for more supportive housing. CM will set up services for Yaima in the community prior to discharge, including HH RN, PT, OT, PHYSICIAN CHIEF OF PATHOLOGY, SASH, MOW, [facility] o/p support, and follow up with her PCP. CM also discussed changing her pharmacy to [facility], in order to have her meds bubble packed and delivered. She will benefit from a community development planner to assist her with the transition into the community as well. Today, CM reached out to [facility] regarding o/p services and pharmacy support, sent a referral to [facility], and sent a referral to [facility] for her complex discharge needs. Yaima also asked about receiving the booster for her COVID 19 vaccine, making an eye appointment, and an appointment for her injections for pain control through Ortho/pain clinic. CM will continue to follow. A: Yaima is a 65 year old female admitted to [facility] on 03/30/21 for SWB 1 to coordinate a safe discharge home. P: Yaima will return home once her complex discharge needs are coordinated and her concerns attended to. She will have new HH RN, PT, OT, PHYSICIAN CHIEF OF PATHOLOGY, as well as case management support in the community. She will be driven home via private vehicle from friends. CM will continue to follow and support discharge planning considerations.
[2021-03-31 18:16] VITALS: BP 137/84; PULSE 86; RESP 18; TEMP 36.4; O2SAT 98
--- NOTE | 2021-03-31 18:58 | CM.SWINGPC ---
- If Service Date Differs Date of service: 03/31/21 Time of Service: 18:58 Swingbed Plan of Care Plan of care: SWING BED PROGRAM ACTIVITIES/DISCHARGE PLAN OF CARE ACTIVITIES PLAN Date: 03/31/21 Identified Need: Personalized activities for life enrichment during SWB admission. Intervention/Plan: Yaima likes to color and complete puzzle books. CM will offer activity cart items regularly. Initials KM DISCHARGE PLAN Date: 03/31/21 Identified Need: Yaima requires additional support at home for continued monitoring and assistance in order to create a safe disposition home. Intervention/Plan: Referrals have been sent to various community partners including Home Health, [facility], and [facility] to build a support team for Yaima in the community. Initials RADHA
--- NOTE | 2021-03-31 19:02 | CM.SBPSYCH ---
- If Service Date Differs Date of service: 03/31/21 Time of Service: 19:02 SB Psychosocial/Act.Assessment - Hospital Admission Admission Date: 03/30/21 Admission From[facility] (Geriatric Psych stabilization[facility] - Social Supports PREVIOUS FUNCTIONAL STATUS/SOCIAL/FAMILY SUPPORTS:: Yaima lives in an apartment in [place], [place]. Her sister is supportive, but does not live locally. Per her PCP office, she lives alone, and sees a therapist locally. Yaima was not able to give additional details about her living situation. - Prior to Admission Living Arrangements/Environment Prior to Admission:: Yaima was living independently alone at home prior to her intial hospital admission on 02/17/21. - Work History Employment Status:: Retired, disabled - : No [place]'s Spouse: No - Benefits Financial: Social Security, SSI - Evangelical Active Restorationism Member:: No Will Restorationism Members or Firesetter Visit:: No - Advance Directives for Healthcare If no AD, do you want more information:: No Advance Directive Agent: Yaima has appointed her sister, Shanice, as her HCA. - Interests Hobbies:: Adult coloring books, puzzle books - Present Functional Status Physical Abilities:: Improving from recent stroke. Per PT eval, impairment in strength, balance and mobility. Cognitive:: Improving. Alert, oriented x3. Communication:: clear, but slow. occasional difficulty with word finding. Behavior:: Calm, appropriate, pleasant. - Medical History PAST MEDICAL HISTORY/PAST SURGICAL HISTORY:: Medical History. Bilateral knee pain. Chronic diarrhea. Degenerative joint disease of left hip. Degenerative joint disease of right hip. Folliculitis. GERD (gastroesophageal reflux disease). Hip pain, right. Hx MRSA infection. Hx of malignant neoplasm of vagina. Hypothyroidism. Left knee DJD. Most recent injection: 08/18/20; 03/31/2020. Leg swelling. Osteoarthritis. Schizoaffective disorder. Urge urinary incontinence. Surgical History. Colonoscopy - MAC (01/12/11). Colonoscopy - MAC (02/14/17) Past Psychiatric Treatment:: Admission to [facility] from 02/26/21-03/30/21 - Admission Data Reason for Swing Bed Admission:: Coordination of complex discharge home once cleared by PT/OT and MD. Discharge Plan:: Yaima will return home when medically cleared, and cleared by PT/OT. She will have new HH RN, PT, OT, CHANGE MANAGEMENT ADMINISTRATOR. CM will assist with coordinating medication delivery through [facility] packed. CM will send referrals to [facility], [facility] and [facility] to coordinate community case management for a smooth transition of care and wrap around support. Assessment: Yaima has shown great improvement in her communication, cognition and willingness to participate in treatment since her admission at [facility]. CM will work with Yaima to develop a safe disposition home with the addition of community support, transitioning care post hospitalization. Referrals are being sent to [facility], [facility], and [facility]. She will likely have her medications delivered in bubble packs, and will have community case management. She will consider senior housing or assisted living if she is not successful at home. CM will continue to follow. Manager Tax: Verónica Escobar Date Assessment was completed:: 03/31/21
[2021-03-31] MEDS: Atorvastatin 40 MG TAB PO (20:34)
[2021-03-31] MEDS: Sennosides/Docusate Sodium TAB 1 TAB PO (20:35)
[2021-04-01] MEDS: Levothyroxine 88 MCG TAB PO (05:53)
[2021-04-01 07:49] VITALS: BP 139/76; PULSE 96; RESP 18; TEMP 36.7; O2SAT 98
[2021-04-01] MEDS: Lidocaine 5% Patch 1 PATCH TP (08:22)
[2021-04-01] MEDS: Aspirin E.C. 81 MG TABEC PO (08:23)
[2021-04-01] MEDS: Famotidine 20 MG TAB PO (08:23)
[2021-04-01] MEDS: Clopidogrel 75 MG TAB PO (08:23)
[2021-04-01] MEDS: buPROPion-CR 100 MG TABCR PO (08:23)
[2021-04-01] MEDS: Calcium 600mg/Vit D 200U TAB 1 TAB PO (08:23)
--- NOTE | 2021-04-01 13:20 | HPE_ITS ---
Date of service: 03/30/21 Time of Service: 15:00 Assessment and Plan Assessment and plan (1) Schizoaffective disorder: Status: Chronic Assessment and plan: stable on current medications recently adjusted at [facility] will continue as directed (2) CVA (cerebral vascular accident): Status: Chronic Assessment and plan: stable, continue DAPT as recommended by neurology continue PT/OT (3) Osteoarthritis of right hip: Status: Acute Assessment and plan: with increasing pain. has had injection by Dr Barber in the past and is due consult placed for injection which hopefully will be scheduled Mar (4) Discharge planning issues: Status: Acute Assessment and plan: case management consulted. plan is for discharge to home with services. discussed with Dr temple History of Present Illness Narrative: This is a 65 year old female who originally presented to the ED here at [facility] after a neighbor stopped in for a welfare check and found her to have altered mental status. Her work up in the ED did not reveal any infectious etiology or other medical condition to explain her symptoms. She was admitted to med/surg for further monitoring and evaluation and was to be evaluated by mental health when medically cleared. Further imaging and evaluation found her to have concern on MRI for CVA. Neurology consult placed and recommendations for DAPT which was initiated. she was started on seroquel for acute psychosis. She remained restless but able to redirect but with no other behavioral issues. she had expressive aphasia with question of receptive aphasia. She remained medica lly stable and was eating and drinking well. She was sent to the [facility] for medication stabilization of her psychiatric disorder. While at [facility] she remained medically stable and her medications were adjusted with improvement in her symptoms. She was followed by PT and OT and was progressing. they didn't feel she was quite ready for discharge to home and requested we take her back [facility] further inpatient rehab. she is accepted under hospitalist services. Review of Systems All systems reviewed & are unremarkable except as noted in HPI and below Musculoskeletal Musculoskeletal: Reports arthralgias (right hip, chronic but worsening) [facility] Medical History Bilateral knee pain Chronic diarrhea Degenerative joint disease of left hip Degenerative joint disease of right hip Folliculitis GERD (gastroesophageal reflux disease) Hip pain, right Hx MRSA infection Hx of malignant neoplasm of vagina Hypothyroidism Left knee DJD Most recent injection: 08/18/20; 03/31/2020 Leg swelling Osteoarthritis Schizoaffective disorder Urge urinary incontinence Surgical History Colonoscopy - MAC (01/12/11) Colonoscopy - MAC (02/14/17) Social History Smoking/Tobacco Use Status: Current-Occasional Tobacco Type: cigarettes Smoking risk assessment performed?: Yes Alcohol Intake: former Drug use: Never Do you feel safe at home: Yes Additional Social history: pts neighbor is observant of her and is here with her Meds Allergies and Home Medications Allergies Allergy/AdvReac Type Severity Reaction Status Date / Time chlorpheniramine Allergy Verified 02/15/21 16:57 erythromycin base Allergy Verified 02/15/21 16:57 Penicillins Allergy Verified 02/15/21 16:57 Home Medications Medication Instructions Recorded Confirmed Type cyclosporine 0.05 % eye drops 1 drp OP Q12H #5.5 ml 01/24/19 02/15/21 Rx calcium carbonate-vitamin D3 600 1 tab PO DAILY #90 tab 05/23/20 03/30/21 Rx mg(1,500 mg)-400 unit chewable tablet multivitamin with iron 1 tab PO DAILY #90 tab 05/29/20 02/15/21 Rx tolterodine 1 mg tablet 1 mg PO HS #90 tab-cap 08/27/20 03/30/21 Rx levothyroxine 88 mcg tablet 88 mcg PO DAILY #90 tab 01/06/21 03/30/21 Rx aspirin 81 mg PO DAILY #0 tab 02/25/21 03/30/21 Rx atorvastatin 40 mg PO QPM #0 tab 02/25/21 03/30/21 Rx clopidogrel 75 mg PO DAILY #0 tab 02/25/21 03/30/21 Rx bupropion HCl [Wellbutrin SR] 100 mg PO DAILY 03/30/21 03/30/21 History clozapine 100 mg PO HS 03/30/21 03/30/21 History famotidine [Pepcid] 20 mg PO DAILY 03/30/21 03/30/21 History lidocaine [Lidoderm] 1 patch TOPICAL DAILY 03/30/21 03/30/21 History sennosides-docusate sodium 1 tab-cap PO QHS 03/30/21 03/30/21 History [Senokot-S] Exam Const General: cooperative, healthy appearing, comfortable and no acute distress Nutritional Appearance: average body habitus Orientation: alert, awake and oriented x3 HENMT Head: normal to inspection, normocephalic and atraumatic Mouth: oral mucosae normal Resp Effort & Inspection: normal respiratory effort Auscultation: clear to auscultation bilaterally Cardio Rate: regular rate Rhythm: regular rhythm GI Inspection: normal to inspection Palpation: soft Auscultation: normal bowel sounds Skin General skin exam: no rashes or lesions noted Neuro General: patient alert, patient awake and patient oriented x3 Speech: abnormal speech stuttering Motor: muscle tone normal throughout Extrem General: normal to inspection and full ROM Results Last Vital Signs Temp 36.7 C 04/01/21 07:49 Pulse 96 H 04/01/21 07:49 Resp 18 04/01/21 07:49 BP 139/76 04/01/21 07:49 Pulse Ox 98 04/01/21 07:49
[2021-04-01] MEDS: Acetaminophen 325 MG TAB 650 MG PO ×2 (14:19→20:39)
[2021-04-01 15:11] VITALS: BP 119/77; PULSE 75; RESP 16; TEMP 36; O2SAT 98
--- NOTE | 2021-04-01 15:17 | PT.INTREAT ---
Date of service: 04/01/21 Time of Service: 10:22 PT Notes Visit Reasons: Schizoaffective Disorder Inpatient Physical Therapy Treatment Note [facility] Date: 04/01/2021 PRECAUTIONS: Fall SUBJECTIVE: Yaima is pleasant and agreeable to participating in PT. She states that she walked several times with nursing yesterday afternoon and evening. OBJECTIVE: PAIN: Patient c/o R hip pain and L knee pain with all activity BED MOBILITY/TRANSFERS Sit-stand: I Stand-sit: I GAIT Assistive Device: Quadcane (SPC not available) Weight bearing: Full Assist: SBA Distance: 200' Deviation: Antalgic gait on R, R hip pain, L knee pain THEREX: Patient was instructed in a standing UE and LE strengthening program, as per flow sheet. She does not require UE support with exercise completion and does not demonstrate LOB. Exercises completed in standing to promote improved balance and stability. ASSESSMENT: Patient tolerated session with c/o increasing R hip and L knee pain with all activity. She was able to tolerate the addition of a ther ex program, completing exercises in a standing position. PLAN: Continue with gait training and balance retraining for improved mobility. TREATMENT CODE/TIME: 33 minutes; 13389, 00528 (10:22)
--- NOTE | 2021-04-01 16:29 | CHAPLAIN ---
Yaima was sitting up in the chair when I visited. She had her hair washed under a shower cap and said was a new experience for her. During our conversation, she told me that she had spoken by phone with sister in [place]. At one point she asked her sister to stop yelling into the phone, and her sister did not like that. Yaima regretted that their conversation ended that way. She said he sister is having a difficult time right now. I will continue to visit Yaima.
--- NOTE | 2021-04-01 17:29 | CMPROGNOTE_ITS ---
- If Service Date Differs Date of service: 04/01/21 Time of Service: 17:29 Care Management Progress Note S/O: Yaima was sitting up in her chair when CM met with her. She was pleasant and engaged in conversation. CM discussed discharge plans with Yaima, stating that she will likely be at [facility] until early next week. PT will work with her to help her gain strength and balance, and CM is coordinating services in the community. CM has coordinated a complex care team meeting for Tuesday with Bell Jeffrey; Erlinda Bradley; [facility] (?); [facility] (?); HH (?), to discuss transitions of care in the community. CM and Yaima discussed getting her on a wait list for assisted living facilities, but she does want to return home from this hospitalization. Yaima is concerned that she cannot find her phone, which she thinks may be at home. MIGUEL ÁNGEL Lorenzo, coordinated her appointment with Ortho for , 04/09/21. Yaima has requested that her follow up appointments are in the afternoon, as this is easier for her. CM assisted Yaima in submitting an application for [facility] today, and faxed it to [facility], where she would like her case management. Yaima is looking forward to being home with her dog again, soon. CM will continue to follow. A: Yaima is a 65 year old female admitted to [facility] on 03/30/21 for SWB 1 to coordinate a safe discharge home. P: Yaima will return home once her complex discharge needs are coordinated and her concerns attended to. She will have new HH RN, PT, OT, BLUEPRINT CLERK, as well as case management support in the community. She will be driven home via private vehicle from friends. CM will continue to follow and support discharge planning considerations.
[2021-04-01] MEDS: Atorvastatin 40 MG TAB PO (20:40)
[2021-04-01] MEDS: Sennosides/Docusate Sodium TAB 1 TAB PO (20:40)
[2021-04-02] MEDS: Levothyroxine 88 MCG TAB PO (06:12)
[2021-04-02 07:28] VITALS: BP 137/82; PULSE 77; RESP 16; TEMP 36.3; O2SAT 97
[2021-04-02] MEDS: Lidocaine 5% Patch 1 PATCH TP (07:44)
[2021-04-02] MEDS: Aspirin E.C. 81 MG TABEC PO (07:44)
[2021-04-02] MEDS: Famotidine 20 MG TAB PO (07:44)
[2021-04-02] MEDS: buPROPion-CR 100 MG TABCR PO (07:44)
[2021-04-02] MEDS: Clopidogrel 75 MG TAB PO (07:44)
[2021-04-02] MEDS: Calcium 600mg/Vit D 200U TAB 1 TAB PO (07:44)
[2021-04-02] MEDS: Acetaminophen 325 MG TAB 650 MG PO ×3 (07:52→21:10)
--- NOTE | 2021-04-02 16:37 | PT.INTREAT ---
Date of service: 04/02/21 Time of Service: 13:13 PT Notes Visit Reasons: Schizoaffective Disorder Inpatient Physical Therapy Treatment Note [facility] Date: 04/02/2021 PRECAUTIONS: Fall SUBJECTIVE: aYima is pleasant and agreeable to participating in PT. OBJECTIVE: PAIN: Patient c/o R hip pain and L knee pain with all activity BED MOBILITY/TRANSFERS Sit-stand: I Stand-sit: I Bed-chair: I Chair-bed: I GAIT Assistive Device: Quadcane (SPC not available) Weight bearing: Full Assist: SBA Distance: 350' Deviation: Antalgic gait on R, R hip pain, L knee pain THEREX: Patient was instructed in a seated UE and LE strengthening program, as per flow sheet. She was not able to tolerate standing exercises today due to worsening hip pain. ASSESSMENT: Patient tolerated session with c/o increasing R hip and L knee pain with all activity. She was able to tolerate to progression in gait distance with quadcane support and supervision. PLAN: Continue with gait training and balance retraining for improved mobility. TREATMENT CODE/TIME: 28 minutes; 49534, [id number] (13:13)
--- NOTE | 2021-04-02 16:59 | CHAPLAIN ---
Yaima was up in the chair, writing in her notebook when I visited. She said she able to talk with her sister in [place] last night. The night before when she spoke with her sister, Yaima had asked her not to yell in the phone, and the sister hung up, so Yaima was glad to have another call with her that went well, although Yaima said she held the phone away from her ear at times. Yaima told me she may be going home early next week to her apartment. It is [place] near [facility] she said. Yaima talked about taking a taxi ride last winter and the trailer tank truck driver took certain streets to show Yaima and her friend the [place] lights that were up around [facility]. She also talked about buying a small, artificial tree with fiber optic lights for her apartment. I will continue to visit. Care Management is working to set up a meeting of people from different agencies who will be supporting Yaima when she goes home.
--- NOTE | 2021-04-02 17:23 | PDOC.CMPRO ---
- If Service Date Differs Date of service: 04/02/21 Time of Service: 17:23 Care Management Progress Note S/O: Yaima was sitting up in her chair when CM met with her. She was pleasant and engaged in conversation. Yaima is aware of the progress made with her discharge planning, and that she will likely be at [facility] until early next week. She will continue working with PT to improve strength and balance. CM is coordinating services in the community. RITESH has coordinated a complex care team meeting for Tuesday with Bell Jeffrey; Erlinda Bradley; [facility] (?); [facility] (Damaris Valade[facility]); HH (?), to discuss transitions of care in the community. CM and Yaima previously discussed getting her on a wait list for assisted living facilities, but she does want to return home from this hospitalization. Yaima is concerned that she cannot find her phone, which she thinks may be at home. MIGUEL ÁNGEL Lorenzo, coordinated her appointment with Ortho for , 04/09/21. Yaima has requested that her follow up appointments are in the afternoon, as this is easier for her. CM assisted Yaima in submitting an application for [facility] yesterday, and faxed it to [facility], where she would like her case management. Yaima is looking forward to being home with her dog again, soon. CM will continue to follow. A: Yaima is a 65 year old female admitted to [facility] on 03/30/21 for SWB 1 to coordinate a safe discharge home. P: Yaima will return home once her complex discharge needs are coordinated and her concerns attended to. She will have new HH RN, PT, OT, CALL OR CONTACT CENTRE OPERATOR, as well as case management support in the community. She will be driven home via private vehicle from friends. CM will continue to follow and support discharge planning considerations.
[2021-04-02] MEDS: Atorvastatin 40 MG TAB PO (21:11)
[2021-04-02 22:32] VITALS: BP 128/71; PULSE 74; RESP 18; TEMP 36.2; O2SAT 98
[2021-04-03] MEDS: Levothyroxine 88 MCG TAB PO (06:05)
[2021-04-03 07:56] VITALS: BP 131/79; PULSE 90; RESP 18; TEMP 36.6; O2SAT 96
[2021-04-03] MEDS: Acetaminophen 325 MG TAB 650 MG PO ×2 (08:59→20:10)
[2021-04-03] MEDS: Clopidogrel 75 MG TAB PO (08:59)
[2021-04-03] MEDS: buPROPion-CR 100 MG TABCR PO (08:59)
[2021-04-03] MEDS: Calcium 600mg/Vit D 200U TAB 1 TAB PO (08:59)
[2021-04-03] MEDS: Aspirin E.C. 81 MG TABEC PO (08:59)
[2021-04-03] MEDS: Famotidine 20 MG TAB PO (08:59)
[2021-04-03] MEDS: Lidocaine 5% Patch 1 PATCH TP (09:00)
--- NOTE | 2021-04-03 14:41 | PT.INTREAT ---
Date of service: 04/03/21 Time of Service: 10:38 PT Notes Visit Reasons: Schizoaffective Disorder Inpatient Physical Therapy Treatment Note [facility] Date: 04/03/2021 PRECAUTIONS: Fall SUBJECTIVE: Yaima is pleasant and agreeable to participating in PT. She states that she feels that she is ready to return to home, although she expresses that she needs a phone before she can return to home. OBJECTIVE: PAIN: Patient c/o R hip pain and L knee pain with all activity BED MOBILITY/TRANSFERS Sit-stand: I Stand-sit: I Bed-chair: I Chair-bed: I GAIT Assistive Device: Quadcane (SPC not available) FWW Weight bearing: Full Assist: S Distance: 350' with quadcane 300' with FWW Deviation: Antalgic gait on R, R hip pain, L knee pain, standing rest x3 with quadcane due to hip pain; increased wayne with FWW THEREX: Patient was instructed in a standing UE and LE strengthening program, as per flow sheet. She does not require UE support with exercise completion and does not demonstrate LOB. Exercises completed in standing to promote improved balance and stability. ASSESSMENT: Patient tolerated session with c/o increasing R hip and L knee pain with all activity. PLAN: Continue with gait training and balance retraining for improved mobility. TREATMENT CODE/TIME: 44 minutes; 89314 x2, 31925 (10:38)
--- NOTE | 2021-04-03 15:54 | W.NUTRFU ---
Date of service: 04/03/21 Time of Service: 15:54 Nutrition Note NOTE: 65yo female admitted with change in mental status, CVA, osteoarthritis R hip, and schizoaffective disorder. Current BMI of 24.6kg/m2 wnl. Good intake on regular/normal diet order. On meeting and talking with Ms Wang, she has no concerns about her nutritional status or ability to take adequate oral nutrition and fluids. Diagnosis: No nutrition Dx at this time Intervention: Continue on regular diet and maintain oral hydration Monitoring/evaluation: Will follow pt for any declines in nutrition status during her admission Theodore Nath NDTR ? [employer]. Time Spent in Nutritional Counseling and Treatment: 15 minutes
[2021-04-03] MEDS: Atorvastatin 40 MG TAB PO (20:10)
[2021-04-03] MEDS: Sennosides/Docusate Sodium TAB 1 TAB PO (22:06)
[2021-04-04] MEDS: Levothyroxine 88 MCG TAB PO (06:07)
[2021-04-04 08:22] VITALS: BP 122/75; PULSE 97; RESP 16; TEMP 36.1; O2SAT 97
[2021-04-04] MEDS: Lidocaine 5% Patch 1 PATCH TP (08:49)
[2021-04-04] MEDS: Acetaminophen 325 MG TAB 650 MG PO ×3 (08:49→22:16)
[2021-04-04] MEDS: buPROPion-CR 100 MG TABCR PO (08:50)
[2021-04-04] MEDS: Aspirin E.C. 81 MG TABEC PO (08:50)
[2021-04-04] MEDS: Clopidogrel 75 MG TAB PO (08:50)
[2021-04-04] MEDS: Famotidine 20 MG TAB PO (08:50)
[2021-04-04] MEDS: Calcium 600mg/Vit D 200U TAB 1 TAB PO (08:50)
--- NOTE | 2021-04-04 08:50 | PTTR_ITS ---
PT Notes Visit Reasons: Schizoaffective Disorder 04/04/2021 SUBJECTIVE: Complains of R hip pain throughout ambulation. Agreeable to PT emely atment. OBJECTIVE: TRANSFERS Sit to stand: I Stand to sit: I GAIT Device: FWW Weight bearing: Full Assist: S Distance: 450' Deviation: Utilized FWW to take pressure off the R hip. THEREX: As noted on flow sheet for standing and seated LE strengthening and light balance activities. ASSESSMENT: Tolerates PT well today despite complaints of R hip discomfort. Utilized FWW to unload the R hip in weight bearing position. PLAN: Continue per POC. Treatment time: 23' [id number], [id number] Angelica Cabrera PTA Clinic location: [facility] [place], [place]
[2021-04-04] MEDS: Atorvastatin 40 MG TAB PO (19:53)
[2021-04-05] MEDS: Levothyroxine 88 MCG TAB PO (06:22)
[2021-04-05 08:31] VITALS: BP 121/78; PULSE 91; RESP 18; TEMP 35.9; O2SAT 97
[2021-04-05] MEDS: Aspirin E.C. 81 MG TABEC PO (08:44)
[2021-04-05] MEDS: Lidocaine 5% Patch 1 PATCH TP (08:44)
[2021-04-05] MEDS: Clopidogrel 75 MG TAB PO (08:45)
[2021-04-05] MEDS: Calcium 600mg/Vit D 200U TAB 1 TAB PO (08:45)
[2021-04-05] MEDS: Famotidine 20 MG TAB PO (08:45)
[2021-04-05] MEDS: buPROPion-CR 100 MG TABCR PO (08:45)
[2021-04-05] MEDS: Acetaminophen 325 MG TAB 650 MG PO ×2 (08:49→20:31)
--- NOTE | 2021-04-05 09:43 | PTTR_ITS ---
PT Notes Visit Reasons: Schizoaffective Disorder 04/05/2021 SUBJECTIVE: Feels stiff today but less complaints of hip discomfort on the R. Agreeable to PT treatment. OBJECTIVE: TRANSFERS Sit to stand: I Stand to sit: I GAIT Device: FWW Weight bearing: Full Assist: Full Distance: 350' Deviation: Use of FWW to unload R hip THEREX: Standing and seated UE/LE strengthening exercises and light balance tasks. See flow sheet. ASSESSMENT: Tolerates PT well today. Less complaints of hip pain throughout. No LOB during balance activities or gait. PLAN: Continue per POC. Treatment time: 23' [id number], [id number] Angelica Cabrera PTA Clinic location: [facility] [place], [place]
[2021-04-05 15:38] VITALS: BP 136/75; PULSE 89; RESP 16; TEMP 36.2; O2SAT 96
[2021-04-05] MEDS: Atorvastatin 40 MG TAB PO (20:31)
[2021-04-05 22:27] VITALS: BP 144/87; PULSE 90; RESP 17; TEMP 36.2; O2SAT 97
[2021-04-06] MEDS: Levothyroxine 88 MCG TAB PO (06:34)
[2021-04-06 07:45] VITALS: BP 158/68; PULSE 78; RESP 18; TEMP 36.6; O2SAT 98
[2021-04-06] MEDS: Lidocaine 5% Patch 1 PATCH TP (08:09)
[2021-04-06] MEDS: buPROPion-CR 100 MG TABCR PO (08:09)
[2021-04-06] MEDS: Aspirin E.C. 81 MG TABEC PO (08:09)
[2021-04-06] MEDS: Clopidogrel 75 MG TAB PO (08:09)
[2021-04-06] MEDS: Calcium 600mg/Vit D 200U TAB 1 TAB PO (08:09)
[2021-04-06] MEDS: Famotidine 20 MG TAB PO (08:10)
[2021-04-06] MEDS: Acetaminophen 325 MG TAB 650 MG PO ×2 (08:18→20:53)
--- NOTE | 2021-04-06 11:05 | INPN_ITS ---
Date of service: 04/06/21 PT Notes Visit Reasons: Schizoaffective Disorder Physical Therapy Inpatient Progress Note Date: 04/06/2021 Precautions: Fall. Standard. Activity as tolerated. Subjective: Antsy about going home soon. Wanted to know if she will be part of the zoom meeting at 1 PM today. account support manager Verónica informed and will clarify with patient meeting specifics. Continues to complain R hip pain at 5/10. Feels that her home is not set up for a FWW and is all set with just using her single point cane as needed. Objective: General Observation: Seated on chair. Appeared mildly anxious about the meeting this afternoon. Mental Status: Alert and oriented as to person, place, time, and purpose. Able to pay attention and respond appropriately. Pain: 3-4/10 in R hip with ambulation ROM: Right Upper Extremity: Shoulder Flexion WFL. Shoulder abduction WFL. Elbow flexion WFL. Wrist flexion WFL. Functional opening and closing of hand WFL. Left Upper Extremity: Shoulder Flexion WFL. Shoulder abduction WFL. Elbow flexion WFL. Wrist flexion WFL. Functional opening and closing of hand WFL. Right Lower Extremity: Hip flexion WFL. Hip abduction WFL. Knee flexion WFL. Ankle dorsiflexion WFL. Ankle plantarflexion WFL. Left Lower Extremity: Hip flexion WFL. Hip abduction WFL. Knee flexion WFL. Ankle dorsiflexion WFL. Ankle plantarflexion WFL. Strength: Right Upper Extremity: Shoulder flexors 4/5. Shoulder abductors 4/5. Elbow flexors 4/5. Elbow extensors 4/5. Hydraulic Corrugating Machine Operator strong. Left Upper Extremity: Shoulder flexors 4/5. Shoulder abductors 4/5. Elbow flexors 4/5. Elbow extensors 4/5. Hydraulic Corrugating Machine Operator strong. Right Lower Extremity: Hip flexors 4-/5. Hip abductors 4-/5. Knee flexors 4-/5. Knee extensors 4-/5. Ankle dorsiflexors 4-/5. Ankle plantarflexors 4-/5. Left Lower Extremity: Hip flexors 4/5. Hip abductors 4/5. Knee flexors 4/5. Knee extensors 4/5. Ankle dorsiflexors 4/5. Ankle plantarflexors 4/5. Bed Mobility/Transfers: Sit to stand independent Stand to sit independent Bed to reclining chair independent In-room ambulation independent Gait: Patient covered level surface ambulation of 300 feet requiring supervision assist with FWW. Gait on right remains mildly antalgic. Balance: Static Sitting: Normal Dynamic Sitting: Normal Static Standing: Good Dynamic Standing: Good Special Tests: Mobility Limitations Standardized Measure [facility] AM-PAC 6 clicks Basic Mobility Inpatient Short Form: Raw Score: 23 CMS Score: 11% deficit 4-Stage Balance Test: Able to maintain feet together, semi-tandem, and full tandem stance for 10 seconds but remains unable to do one-legged stance for the same duratio due to R hip pain. Informed Consent/Education: Patient was instructed in purpose of PT consult and plan of care. Agreeable to proceed with established PT POC to achieve personal goals. Assessment: Patient has demonstrated marked improvement in functional mobility performance now requiring supervision with or without AD. Patient presents with clinical signs and symptoms consistent with current/admitting diagnoses that have resulted to mobility limitations, gait instability, generalized weakness, and overall ADL decline as demonstrated by the following impairment level findings: 1. Decreased strength to B LE (R>>L) major muscle groups Impairments are contributing to the following functional limitations: 1. Increased completion time for mobility ADL performance Patient is assessed as a 85896 moderate complexity based on the following: History: 65-year-old female with past medical history as indicated above Examination: Demonstrable impairment in strength, balance, and mobility level with underlying impairments and functional limitations as exhibited above as well as deficit score of 29% utilizing the [facility] Mobility Inpatient Short Form Presentation: Stable Decision Makin moderate complexity Goals: Goals X1 week 1. Supine-Sit independent MET 2. Sit-Supine independent MET 3. Sit-Stand independent MET 4. Stand-Sit independent with no AD MET 5. Bed-Chair independent with no AD MET 6. Chair-Bed independent with no AD MET 7. Independent gait on level surface with use of no AD for at least 500 feet without report of pain nor dyspnea NOT MET 8. Good static and dynamic standing balance/tolerance MET Plan of Care/Treatment Plan: 1-2x/day, 7 days/week x 1 week. Plan of care has been reviewed with the PAYROLL AND BENEFITS ANALYST providing the service under Physical Therapy direction. Initiate Physical Therapy intervention for pain management as needed, strengthening, bed mobility, transfers, gait, stairs, balance training, and use of assistive device. DISCHARGE RECOMMENDATIONS: [] Home with no services [] [X] Home with services patient will benefit from home health PT services in order to progress mobility level using least restrictive assistive ambulatory device, assess home safety, identify additional equipment needs, and establish a functional maintenance program that will increase ability of patient to remain at home. [] Home with outpatient PT [] [] SNF for continued rehabilitation [] [] Nursing Home Care [] [] SNF versus LTC based on ability to participate and progress [] [X] Consider placement in an AFC home/supervised home to ensure safe/consistently accurate medication management and PT to provide caregiver education/training on HEP and fall reduction strategies at D/C destination. TREATMENT CODE/TIME: 44249 x 25 minutes, 56134 x 15 minutes beginning at 11:05 AM. Thank you for the opportunity to participate in the care of this patient. Mabel Jordan PT, DPT, CLT [facility] [place], [place]
[2021-04-06] MEDS: Sennosides/Docusate Sodium TAB 1 TAB PO (20:53)
[2021-04-06] MEDS: Atorvastatin 40 MG TAB PO (20:53)
[2021-04-07] MEDS: Levothyroxine 88 MCG TAB PO (06:17)
[2021-04-07 07:42] VITALS: BP 123/66; PULSE 87; RESP 18; TEMP 36.5; O2SAT 98
[2021-04-07] MEDS: buPROPion-CR 100 MG TABCR PO (08:30)
[2021-04-07] MEDS: Clopidogrel 75 MG TAB PO (08:30)
[2021-04-07] MEDS: Acetaminophen 325 MG TAB 650 MG PO (08:30)
[2021-04-07] MEDS: Calcium 600mg/Vit D 200U TAB 1 TAB PO (08:30)
[2021-04-07] MEDS: Lidocaine 5% Patch 1 PATCH TP (08:30)
[2021-04-07] MEDS: Aspirin E.C. 81 MG TABEC PO (08:31)
[2021-04-07] MEDS: Famotidine 20 MG TAB PO (08:31)
--- NOTE | 2021-04-07 13:51 | W.PM.DS.N ---
Date of service: 04/07/21 Time of Service: 13:52 DS: Diagnosis Discharge Diagnosis (1) Schizoaffective disorder: Start date: 04/07/21 Start time: 13:52 Status: Chronic Asessment and Plan: Accepted from [facility]. Stable on current medications. She has been working with PT in [place]. She is now stable enough to go home She will be following up with Dr. Reina as an outpatient We will supply her evening and morning medications until her medications are delivered by blister pack tomorrow. She is being discharged home with services PT/OT/BERRY PICKER MACHINE OPERATOR/Nursing (2) CVA (cerebral vascular accident): Start date: 04/07/21 Start time: 13:57 Status: Chronic Asessment and Plan: stable, continue DAPT as recommended by neurology (3) Osteoarthritis of right hip: Start date: 04/07/21 Start time: 13:58 Status: Acute Asessment and Plan: with increasing pain. has had injection by Dr Barber in the past and is due consult placed for injection which hopefully will be scheduled Mar discussed with Dr. Hare Discharge Plan Disposition Patient Disposition: HOME W/HOME HEALTH SERVICE Condition: Improving Discharge Details Reason For Visit: Schizoaffective Disorder Admit Date/Time: 03/30/21 14:29 Admit Provider: Maura Amaro Attending Provider: Maura Amaro Primary Care Provider: Dillon Scott Hospital Course Hospital Course: This is a 65 year old female who originally presented to the ED here at [facility] after a neighbor stopped in for a welfare check and found her to have altered mental status. Her work up in the ED did not reveal any infectious etiology or other medical condition to explain her symptoms. She was admitted to med/surg for further monitoring and evaluation and was to be evaluated by mental health when medically cleared. Further imaging and evaluation found her to have concern on MRI for CVA. Neurology consult placed and recommendations for DAPT which was initiated. she was started on seroquel for acute psychosis. She remained restless but able to redirect but with no other behavioral issues. she had expressive aphasia with question of receptive aphasia. She remained medically stable and was eating and drinking well. [facility] of her psychiatric disorder. While at [facility] she remained medically stable and her medications were adjusted with improvement in her symptoms. She was followed by PT and OT and was progressing. they didn't feel she was quite ready for discharge to home and requested we take her back for further inpatient rehab. she WAS accepted under hospitalist services [place]. She is now ready for discharge and will be discharged home with services. Home Meds and New Rx's Prescriptions: Continued Calcium 600 with Vitamin D3 600 mg(1,500mg) -400 unit tablet,chewable 1 tab PO DAILY Qty: 90 RF: 3 tolterodine [Detrol] 1 mg tablet 1 mg PO HS Qty: 90 RF: 3 Restasis MultiDose 0.05 % drops 1 drp OP Q12H Qty: 5.5 RF: 1 multivitamin with iron Tablet 1 tab PO DAILY Qty: 90 RF: 3 levothyroxine 88 mcg tablet 88 mcg PO DAILY Qty: 90 RF: 3 atorvastatin 40 mg Tablet 40 mg PO QPM Qty: 0 RF: 0 clopidogrel 75 mg Tablet 75 mg PO DAILY Qty: 0 RF: 0 aspirin 81 mg Tablet,Delayed Release (Dr/Ec) 81 mg PO DAILY Qty: 0 RF: 0 clozapine 100 mg Tablet 100 mg PO HS RF: 0 sennosides-docusate sodium [Senokot-S] 8.6-50 mg Tablet 1 tab-cap PO QHS RF: 0 bupropion HCl [Wellbutrin SR] 100 mg Tablet Sustained-Release 12 Hr 100 mg PO DAILY RF: 0 lidocaine [Lidoderm] 5 % Adhesive Patch,Medicated 1 patch TOPICAL DAILY RF: 0 famotidine [Pepcid] 40 mg tablet 20 mg PO DAILY RF: 0 Discharge Instructions Instructions: Osteoarthritis (DC), Schizoaffective Disorder (DC) Additional Instructions: Follow up with Dr. Barber as scheduled for injection Follow up with Dr. Reina at [facility] Take medications as prescribed Stand Alone Forms: Nursing Discharge Form Referrals: [facility] Covid Vaccination [Other] - 04/08/21 1:00 pm (Appt is at [facility] for Moderna Vaccination ) [facility] [Outside] - 11/04/21 1:50 pm (Booked out in [facility] until October.) Israel Reina [ NON-[facility] STAFF PHYSICIAN] - 05/15/21 11:30 am (in office appt.) González Barber MD [ [facility] STAFF PHYSICIAN] - 04/23/21 1:20 pm (Go to X-ray department at [facility]) Dillon Scott MD [Primary Care Provider] - 04/14/21 2:40 pm (in office appt.) Activity:: Activity as Tolerated Equipment/Supplies:: No Equipment Needed Diet:: Normal Diet Discharge Orders Discharge Orders: Discharge Order (Routine); Ordered 04/07/21 Ordered By: Mine Alvarado DS: Summary Time Spent with Patient providing and/or coordinating discharge services: Less than 30 minutes Status at Discharge Functional status at discharge: independent ambulation Overall status at discharge: patient is back to baseline Mental Status: mental status grossly normal and other Speech and Movement: speech and movement normal Mood: other Affect: other Exam Const General: cooperative, healthy appearing, comfortable and no acute distress Nutritional Appearance: average body habitus Orientation: alert, awake and oriented x3 HENMT Head: normal to inspection, normocephalic and atraumatic Mouth: oral mucosae normal Resp Effort & Inspection: normal respiratory effort Auscultation: clear to auscultation bilaterally Cardio Rate: regular rate Rhythm: regular rhythm GI Inspection: normal to inspection Palpation: soft Auscultation: normal bowel sounds Skin General skin exam: no rashes or lesions noted Neuro General: patient alert, patient awake and patient oriented x3 Speech: abnormal speech stuttering Motor: muscle tone normal throughout Extrem General: normal to inspection and full ROM Psych Mental Status: mental status grossly normal and other Speech and Movement: speech and movement normal Mood: other Affect: other DS: Data Vitals/I&O Vitals and I&O: Vital Signs Temperature 36.5 C 04/07/21 07:42 Temperature Source Tympanic 04/07/21 07:42 Pulse 87 04/07/21 07:42 Pulse Rhythm Regular 04/07/21 09:33 Respiratory Rate 18 04/07/21 07:42 Respiratory Effort Non-Labored 04/07/21 09:33 Respiratory Depth Normal 04/07/21 09:33 Respiratory Pattern Normal 04/07/21 09:33 Blood Pressure 123/66 04/07/21 07:42 Pulse Oximetry 98 04/07/21 07:42 Oxygen Delivery Method Room Air 04/07/21 07:42 Oxygen Flow Rate 0 04/07/21 07:42 Pain Level 4 04/07/21 08:30 Intake & Output 04/06/21 04/07/21 04/07/21 23:59 11:59 23:59 Intake Total 360 / 360 Balance 360 / 360 Intake: Oral 360 / 360 Other: Comment pT said she has used the bathroom a couple of times today. Voiding Methods Toilet Toilet PFSH All Active Problems Osteoarthritis of right hip (Acute) Schizoaffective disorder (Acute) CVA (cerebral vascular accident) (Chronic) Acute CVA (cerebrovascular accident) (Acute) DVT prophylaxis (Acute) Discharge planning issues (Acute) Schizoaffective disorder (Chronic) Hypomagnesemia (Acute) AMS (altered mental status) (Acute) Depression (Chronic) Hypokalemia (Acute) Lethargy (Acute) Thoracic aortic aneurysm (Acute) Hematuria (Acute) Degenerative joint disease of right hip (Chronic) Degenerative joint disease of left hip (Chronic) Left knee DJD (Chronic) Hip pain, right (Acute) Bilateral knee pain (Acute) Leg swelling (Acute) Rash (Acute) Hydradenitis (Acute) Abnormal weight loss (Acute 06/21/12) Hyponatremia (Acute 03/24/94) MRSA (methicillin resistant staph aureus) culture positive (Acute 04/04/13) Facial tic (Acute 04/04/13) Urge urinary incontinence (Acute 02/01/14) Smoker (Acute) Schizoaffective disorder (Acute) Right ankle pain (Acute 11/01/14) Primary malignant neoplasm of vagina (Acute) Osteoarthritis of knee (Acute 12/14/11) Hypothyroidism (Acute) H/O methicillin resistant Staphylococcus aureus (Acute 04/04/13) GERD (gastroesophageal reflux disease) (Acute 03/14/14) Folliculitis (Acute) Facial tic (Acute) Edentulous (Acute 10/17/13) Diarrhea (Chronic 05/15/12) Medical History Chronic diarrhea Folliculitis GERD (gastroesophageal reflux disease) Hx MRSA infection Hx of malignant neoplasm of vagina Hypothyroidism Osteoarthritis Urge urinary incontinence Surgical History Colonoscopy - MAC (01/12/11) Colonoscopy - MAC (02/14/17) Social History Smoking/Tobacco Use Status: Current-Occasional Tobacco Type: cigarettes Smoking risk assessment performed?: Yes Alcohol Intake: former Drug use: Never Do you feel safe at home: Yes Additional Social history: pts neighbor is observant of her and is here with her
--- NOTE | 2021-04-07 15:26 | CMDISCH_ITS ---
- If Service Date Differs Date of service: 04/07/21 Time of Service: 15:27 LACE Index Scoring Tool - Questions: Length of Stay (in days): 7 - 13 Acuity (Admit via E.D.?): No Comorbidities: Cerebrovascular Disease E.D. Visits: 1 - Answers: Total Score: 7 Risk of Readmission: Low Risk Care Management Discharge Reason for Hospitalization: schizoaffective disorder Discharge Plan: Yaima returned home today with new orders for HH RN, PT, OT, PROJECT CREW WORKER. She will also have support from [facility], and [facility]. CM made follow up appointments for Yaima at her PCP office, Orth[facility], [facility], [facility] eye care, and for her to receive her booster Covid 19 vaccine. CM changed her pharmacy to [facility], at her request, and her medications will be delivered tomorrow. Yaima's friend, Sherita, drove her home via private vehicle. Yaima was nervous, but excited and happy to return home to her dog. Patient/Family Education Needs: Review discharge instructions regarding activity levels and medications, discussion of self care needs including ask me three. Services Needed at Discharge: Home Health Care Services
--- NOTE | 2021-04-07 18:00 | PT.INDS ---
Date of service: 04/13/21 PT Notes Visit Reasons: Schizoaffective Disorder Physical Therapy Inpatient Discharge Summary Date: 04/07/2021 Dates of service: 03/31/2021 through 04/06/2021 This is a clinical summary of care provided for the duration of dates listed above. No charge was made in the completion of this documentation. Precautions: Fall. Standard. Activity as tolerated. Subjective: NT. See most recent ORGAN PIPE FINISHER notes. Objective: General Observation: NT. See most recent ORGAN PIPE FINISHER notes. Mental Status: NT. See most recent ORGAN PIPE FINISHER notes. Pain: NT. See most recent ORGAN PIPE FINISHER notes. ROM: Right Upper Extremity: Shoulder Flexion WFL. Shoulder abduction WFL. Elbow flexion WFL. Wrist flexion WFL. Functional opening and closing of hand WFL. Left Upper Extremity: Shoulder Flexion WFL. Shoulder abduction WFL. Elbow flexion WFL. Wrist flexion WFL. Functional opening and closing of hand WFL. Right Lower Extremity: Hip flexion WFL. Hip abduction WFL. Knee flexion WFL. Ankle dorsiflexion WFL. Ankle plantarflexion WFL. Left Lower Extremity: Hip flexion WFL. Hip abduction WFL. Knee flexion WFL. Ankle dorsiflexion WFL. Ankle plantarflexion WFL. Strength: Right Upper Extremity: Shoulder flexors 4/5. Shoulder abductors 4/5. Elbow flexors 4/5. Elbow extensors 4/5. Hoisting Machine Operator strong. Left Upper Extremity: Shoulder flexors 4/5. Shoulder abductors 4/5. Elbow flexors 4/5. Elbow extensors 4/5. Hoisting Machine Operator strong. Right Lower Extremity: Hip flexors 4-/5. Hip abductors 4-/5. Knee flexors 4-/5. Knee extensors 4-/5. Ankle dorsiflexors 4-/5. Ankle plantarflexors 4-/5. Left Lower Extremity: Hip flexors 4/5. Hip abductors 4/5. Knee flexors 4/5. Knee extensors 4/5. Ankle dorsiflexors 4/5. Ankle plantarflexors 4/5. Bed Mobility/Transfers: Sit to stand independent Stand to sit independent Bed to reclining chair independent In-room ambulation independent Gait: Patient covered level surface ambulation of 300 feet requiring supervision assist with FWW. Gait on right remains mildly antalgic. Balance: Static Sitting: Normal Dynamic Sitting: Normal Static Standing: Good Dynamic Standing: Good 4-Stage Balance Test: Able to maintain feet together, semi-tandem, and full tandem stance for 10 seconds but remains unable to do one-legged stance for the same duratio due to R hip pain. Assessment: Patient has demonstrated marked improvement in functional mobility performance now requiring supervision with or without AD for all mobility ADL performance.. Patient presents with clinical signs and symptoms consistent with current/admitting diagnoses that have resulted to mobility limitations, gait instability, generalized weakness, and overall ADL decline as demonstrated by the following impairment level findings: 1. Decreased strength to B LE (R>>L) major muscle groups Impairments are contributing to the following functional limitations: 1. Increased completion time for mobility ADL performance Goals: Goals X1 week 1. Supine-Sit independent MET 2. Sit-Supine independent MET 3. Sit-Stand independent MET 4. Stand-Sit independent with no AD MET 5. Bed-Chair independent with no AD MET 6. Chair-Bed independent with no AD MET 7. Independent gait on level surface with use of no AD for at least 500 feet without report of pain nor dyspnea NOT MET 8. Good static and dynamic standing balance/tolerance MET DISCHARGE RECOMMENDATIONS: [] Home with no services [] [X] Home with services patient will benefit from home health PT services in order to progress mobility level using least restrictive assistive ambulatory device, assess home safety, identify additional equipment needs, and establish a functional maintenance program that will increase ability of patient to remain at home. [] Home with outpatient PT [] [] SNF for continued rehabilitation [] [] [facility] [] [] SNF versus LTC based on ability to participate and progress [] [X] Consider placement in an AFC home/supervised home to ensure safe/consistently accurate medication management and PT to provide caregiver education/training on HEP and fall reduction strategies at D/C destination. TREATMENT CODE/TIME: SC Thank you for the opportunity to participate in the care of this patient. Mabel Jordan PT, DPT, CLT [facility] [place], [place]
--- NOTE | 2021-04-08 10:21 | PDOC.HHF2F_ITS ---
Home Health Certification Home Health Certification: 1. Encounter Date and Reason I certify that Yaima Wang was seen by Bacilio Hare MD on 04/08/21 and that I had a tjez-oz-[id number] encounter with this patient that meets the physician face to face encounter requirements. 2. Clinical Findings Supporting Skilled Need and Homebound Status I certify that home health services are medically necessary, include either intermittent long term and/or physical/speech therapy, and that this ed ent is homebound in that absences from the home require considerable and taxing effort and are infrequent or of short duration, or are attributable to the need to receive medical care. [X] (a) Attached documentation from encounter provides clinical findings supporting skilled need and homebound status (including what assistance patient requires to leave the home). The encounter with the patient was in whole, or in part, for the following medical condition, which is the primary reason for home health care: Schizoaffective Disorder Snf: Monitor medications. Monitor pain. Physical Therapy:Occupational Therapy. Evaluate mobility and assist in strengthening/endurance/balance/ADLs. Speech Therapy: PETROLEUM ENGINEERING PROFESSOR: assist in procurring community services and monitoring her mental health. Homebound: Requires assistance of another person when outside the home. 3. Certification and Authentication I certify that I composed the above information based on my clinical judgement relating to this patient's medical condition and, if applicable, clinical findings communicated to me by the NPP or inpatient physician who performed the Home Health Referral. All further orders will be obtained through Dillon Scott (Community Based Physician - PCP)
== END 2021-04-07 15:08 | disposition home health service (06) | DRG 885 ==
PROVIDERS: Admitting Provider Nurse Practitioner Acute Care; PCP Family Medicine; Visit Provider Nurse Practitioner Acute Care
DX: F25.9 Schizoaffective disorder, unspecified (principal); M16.11 Unilateral primary osteoarthritis, right hip; K52.9 Noninfective gastroenteritis and colitis, unspecified; N39.41 Urge incontinence; K21.9 Gastro-esophageal reflux disease without esophagitis; E03.9 Hypothyroidism, unspecified; M17.12 Unilateral primary osteoarthritis, left knee
CPT/HCPCS: 87635; 97110; 97162; 97165; 97530; 97535; 99306; 99315; J3490

== ENCOUNTER 2021-04-16 03:42 | Outpatient (CLI) | payer MEDICARE, SELFPAY ==
[2021-04-16 14:25] LABS: Abs Immature Grans 0.02 10^3/uL (0.0-0.06); Absolute Basophil Count 0.04 10^3/uL (0.0-0.2); Absolute Eosinophil Count 0.23 10^3/uL (0.0-0.7); Absolute Lymphocyte Count 1.64 10^3/uL (1.2-3.4); Absolute Monocyte Count 0.55 10^3/uL (0.1-0.8); Absolute Neutrophil Count 5.66 10^3/uL (1.2-6.7); Basophils % 0.5; Eosinophils % 2.8; HGB 11.8 g/dL (11.2-15.7); Immature Grans % 0.2; Lymphocytes % 20.1; MCHC 31.9 % (32.0-36.0); MCV 97.1 fL (80-95); MPV 9.4 fL (8.0-11.0); Monocytes % 6.8; Neutrophils % 69.6; Nucleated RBC 0 %; Platelet Count 269 10^3/uL (130-400); RBC 3.81 10^6/uL (3.93-5.22); RDW 13.2 % (11.7-14.6); RDW-SD 47.2 fL; WBC 8.14 10^3/uL (4.4-10.8)
[2021-04-16 15:48] LABS: TSH (W/Ref FT4) 1.93 uIU/mL (0.36-3.74)
== END 2021-04-16 03:43 | disposition home or self-care (01) ==
LOC: LBO 03:42
PROVIDERS: PCP Family Medicine; Visit Provider Psychiatry & Neurology Psychiatry
DX: E03.9 Hypothyroidism, unspecified (principal); F20.9 Schizophrenia, unspecified; Z79.899 Other long term (current) drug therapy
CPT/HCPCS: 36415; 84443; 85025

== ENCOUNTER 2021-04-23 02:41 | Outpatient (CLI) | payer MEDICARE, SELFPAY ==
--- NOTE | 2021-04-23 13:40 | DI.RAD_ITS ---
Exam(s) RF JOINT INJECTION FLUORO GUID EXAM: RF JOINT INJECTION FLUORO GUID CLINICAL HISTORY: R HIP PAIN,rt hip inj under fluoro, oa rt hip,m16.11 TECHNIQUE: 2D and realtime digital imaging was performed. COMPARISON: No exams were available for comparison FINDINGS: C-arm fluoroscopy was utilized by Dr. Barber during right hip injection. Hard copy shows right hip joint injection. IMPRESSION: RADIATION DOSE DELIVERED: nohemy Barbosa=0.357 mGy Total DLP
[2021-04-23] MEDS: methylPREDNISolone ACETATE 80 MG/ML VIAL IM (13:50)
[2021-04-23] MEDS: Omnipaque 300 MG/ML 10 ML BTL IJ (13:51)
[2021-04-23] MEDS: Bupivacaine 0.5% Pres-Free 10 ML VIAL 5 ML IJ (13:52)
--- NOTE | 2021-04-23 15:19 | W.PROCNOTE ---
Date of service: 04/23/21 Time of Service: 13:43 Procedure Note Date of procedure: 04/23/21 Procedure: Right Hip Injection with Fluoroscopic Guidance Surgeon/Proceduralist/Physician: González Barber Procedure Diagnosis: Right Hip Osteoarthritis Procedure Indications: Yaima has had persistent pain of the RIGHT hip and groin. Noninvasive measures have been tried. She had previous success with an injection so an injection under fluoroscopy was recommended. I had discussed the risks of the procedure and the patient elected to proceed. Procedure Description: Yaima was greeted in the flouroscopy room. The correct side was identified and the consent was reviewed with the patient and signed. The patient was then placed in the supine position on the fluoroscopy table. The RIGHT hip was then prepped with Chloraprep. The anterolateral injection starting point was identiifed by bony landmarks and fluoroscopy. The skin and soft tissue in the tract of the injection was anesthetized with 1% Lidocaine. A spinal needle was then inserted deep into the hip joint at the level of the lateral femoral neck under fluoroscopic guidance. A small amount of Omnipaque solution was injected to confirm intraarticular placement. Once confirmed, the hip was injected with 6cc of 0.5% Bupivicaine and 80mg of Depo-Medrol. A bandaid was placed on the injection site. The patient tolerated the procedure well and noted improvement in pre-injection pain.
== END 2021-04-23 03:01 ==
PROVIDERS: PCP Family Medicine; Visit Provider Student in an Organized Health Care Education/Training Program
DX: M16.11 Unilateral primary osteoarthritis, right hip (principal); M25.551 Pain in right hip; R10.31 Right lower quadrant pain
CPT/HCPCS: 20610; 77002; J1040

== ENCOUNTER 2021-05-27 03:21 | Outpatient (CLI) | payer MEDICARE, SELFPAY ==
[2021-05-27 13:34] LABS: Abs Immature Grans 0.02 10^3/uL (0.0-0.06); Absolute Basophil Count 0.03 10^3/uL (0.0-0.2); Absolute Eosinophil Count 0.08 10^3/uL (0.0-0.7); Absolute Lymphocyte Count 2.13 10^3/uL (1.2-3.4); Absolute Monocyte Count 0.68 10^3/uL (0.1-0.8); Basophils % 0.3; Eosinophils % 0.9; HCT 39.7 % (36.0-46.0); HGB 12.7 g/dL (11.2-15.7); Immature Grans % 0.2; Lymphocytes % 23.3; MCH 30.5 pg (27.0-33.0); MCV 95.4 fL (80-95); MPV 9.7 fL (8.0-11.0); Monocytes % 7.4; Neutrophils % 67.9; Nucleated RBC 0 %; Platelet Count 284 10^3/uL (130-400); RBC 4.16 10^6/uL (3.93-5.22); RDW 12.4 % (11.7-14.6); RDW-SD 43.8 fL; WBC 9.14 10^3/uL (4.4-10.8)
== END 2021-05-27 03:22 | disposition home or self-care (01) ==
LOC: LBO 03:21
PROVIDERS: PCP Family Medicine; Visit Provider Psychiatry & Neurology Psychiatry
DX: F20.9 Schizophrenia, unspecified (principal); Z79.899 Other long term (current) drug therapy; M17.12 Unilateral primary osteoarthritis, left knee
CPT/HCPCS: 20610; 36415; 85025; J1040

== ENCOUNTER 2021-06-26 04:01 | Outpatient (CLI) | payer MEDICARE, SELFPAY ==
[2021-06-26 12:47] LABS: Abs Immature Grans 0.02 10^3/uL (0.0-0.06); Absolute Basophil Count 0.06 10^3/uL (0.0-0.2); Absolute Eosinophil Count 0.15 10^3/uL (0.0-0.7); Absolute Lymphocyte Count 1.96 10^3/uL (1.2-3.4); Absolute Monocyte Count 0.68 10^3/uL (0.1-0.8); Basophils % 0.6; Eosinophils % 1.5; HCT 40.6 % (36.0-46.0); HGB 12.9 g/dL (11.2-15.7); Immature Grans % 0.2; Lymphocytes % 19.7; MCH 30.4 pg (27.0-33.0); MCHC 31.8 % (32.0-36.0); MCV 95.8 fL (80-95); MPV 9.6 fL (8.0-11.0); Monocytes % 6.8; Neutrophils % 71.2; Nucleated RBC 0 %; Platelet Count 300 10^3/uL (130-400); RBC 4.24 10^6/uL (3.93-5.22); RDW 12.5 % (11.7-14.6); RDW-SD 43.9 fL; WBC 9.97 10^3/uL (4.4-10.8)
== END 2021-06-26 04:02 | disposition home or self-care (01) ==
LOC: LBO 04:01
PROVIDERS: PCP Family Medicine; Visit Provider Psychiatry & Neurology Psychiatry
DX: Z79.899 Other long term (current) drug therapy (principal); F20.9 Schizophrenia, unspecified
CPT/HCPCS: 36415; 85025

== ENCOUNTER → 2021-06-29 14:13 | Outpatient (BNVA) | payer MEDICARE, SELFPAY | PROVIDERS: PCP Family Medicine; Referring Provider Family Medicine; Visit Provider Student in an Organized Health Care Education/Training Program | DX: M16.11 Unilateral primary osteoarthritis, right hip (principal) | CPT/HCPCS: 99214 ==

== ENCOUNTER 2021-07-29 15:23 | Outpatient (CLI) | payer MEDICARE, SELFPAY ==
--- NOTE | 2021-07-29 13:15 | DI.RAD_ITS ---
Exam(s) XR HIP RT COMPLETE AP PELVIS EXAM: XR HIP RT COMPLETE AP PELVIS CLINICAL HISTORY: R FEI planning. TECHNIQUE: 2D digital imaging was performed. COMPARISON: CR XR PELVIS AP from 02/16/2021 FINDINGS: 3 views There are no pelvic nor hip fractures. Severe vpbs-yh-nerz degenerative change again noted in the right hip, unchanged from 02/16/2021. Als o marginal osteophytes and degenerative subarticular cysts noted in the right hip joint. There also degenerative changes in the opposite-left hip, moderate-severe but less than evident on ri ght side Sacroiliac joints appear unremarkable. Bone density is age-appropriate. IMPRESSION: Severe advanced osteoarthritic degenerative changes in the right hip joint again noted DATA REPOSITORY: RADIATION DOSE DELIVERED:
== END 2021-07-29 15:24 | disposition home or self-care (01) ==
LOC: DIORS 15:24
PROVIDERS: PCP Family Medicine; Referring Provider Family Medicine; Visit Provider Physician Assistant
DX: M16.11 Unilateral primary osteoarthritis, right hip (principal); Z01.818 Encounter for other preprocedural examination
CPT/HCPCS: 73502

== ENCOUNTER 2021-08-03 02:14 | Outpatient (CLI) | payer MEDICARE, SELFPAY | END 2021-08-03 02:15 | disposition home or self-care (01) | LOC: LBO 02:14 | PROVIDERS: PCP Family Medicine; Visit Provider Student in an Organized Health Care Education/Training Program ==

== ENCOUNTER 2021-08-03 02:47 | Outpatient (CLI) | payer MEDICARE, SELFPAY ==
[2021-08-03 10:43] LABS: Abs Immature Grans 0.03 10^3/uL (0.0-0.06); Absolute Basophil Count 0.04 10^3/uL (0.0-0.2); Absolute Lymphocyte Count 1.82 10^3/uL (1.2-3.4); Absolute Monocyte Count 0.59 10^3/uL (0.1-0.8); Absolute Neutrophil Count 6.16 10^3/uL (1.2-6.7); Basophils % 0.5; Eosinophils % 1.1; HCT 40.3 % (36.0-46.0); HGB 12.9 g/dL (11.2-15.7); Immature Grans % 0.3; Lymphocytes % 20.8; MCH 30.6 pg (27.0-33.0); MCV 95.5 fL (80-95); MPV 9.7 fL (8.0-11.0); Monocytes % 6.8; Neutrophils % 70.5; Nucleated RBC 0 %; Platelet Count 288 10^3/uL (130-400); RBC 4.22 10^6/uL (3.93-5.22); RDW 12.3 % (11.7-14.6); RDW-SD 43.2 fL; WBC 8.74 10^3/uL (4.4-10.8)
[2021-08-03 11:16] LABS: Anion Gap 9.6 mmol/L (3-11); BUN 16 mg/dL (7-18); CO2 25.4 mmol/L (21.0-32.0); CREATININE 0.7 mg/dL (0.55-1.02); Calcium 9.8 mg/dL (8.5-10.1); Chloride 106 mmol/L (98-107); Glucose 111 mg/dL (74-106); Potassium 3.7 mmol/L (3.5-5.1); Sodium 141 mmol/L (136-145)
[2021-08-03 12:09] LABS: Source Nasal/Nares
[2021-08-03 14:45] LABS: COVID-19 PCR Negative (Negative)
== END 2021-08-03 02:48 | disposition home or self-care (01) ==
LOC: LBO 02:47
PROVIDERS: Psychiatry & Neurology Psychiatry; PCP Family Medicine; Visit Provider Student in an Organized Health Care Education/Training Program
DX: M25.511 Pain in right shoulder (principal); M16.11 Unilateral primary osteoarthritis, right hip; Z20.822 Contact with and (suspected) exposure to COVID-19; Z01.818 Encounter for other preprocedural examination; Z01.812 Encounter for preprocedural laboratory examination
CPT/HCPCS: 36415; 80048; 86850; 86900; 86901; 87635; U0005; 85025

== ENCOUNTER 2021-08-05 06:01 | Day surgery (SDC) | payer MEDICARE, SELFPAY ==
[2021-08-05] VITALS (9 sets, daily range): BP systolic 104–137; BP diastolic 53–99; PULSE 70–100; RESP 16–27; TEMP 36–36.5; O2SAT 97–99; BMI 23.2
--- NOTE | 2021-08-05 06:18 | ANES.PREOP_ITS ---
General Info Date of Service Date Performed: 08/05/21 Height: 5 ft 6 in Weight: 65.317 kg Body Mass Index (BMI): 23.2 Surgical Procedure: Operation Date: 08/05/21 07:50 Proposed Procedure Side Surgeon p Hip Total Hip Anterior Right González Barber MD Meds Allergies and Home Medications Allergies Allergy/AdvReac Type Severity Reaction Status Date / Time chlorpheniramine Allergy Verified 08/05/21 06:23 erythromycin base Allergy Verified 08/05/21 06:23 Penicillins Allergy Verified 08/05/21 06:23 Home Medication Medication Instructions Recorded cyclosporine 0.05 % eye drops 1 drp OP Q12H #5.5 ml 01/24/19 (Restasis MultiDose) aspirin 81 mg tablet,delayed 81 mg PO DAILY #30 tab 04/07/21 release bupropion HCl 100 mg tablet,12 hr 100 mg PO QAM #30 tab 04/07/21 sustained-release clozapine 100 mg tablet 100 mg PO HS #30 tab 04/07/21 levothyroxine 88 mcg tablet 88 mcg PO DAILY #30 tab 04/07/21 multivitamin with minerals-ferrous 1 tab PO DAILY #100 tab 04/08/21 sulfate 4.5 mg iron tablet (One Daily Multivitamins with Minerals) atorvastatin 40 mg tablet 40 mg PO QPM #90 tab 04/28/21 clopidogrel 75 mg tablet 75 mg PO DAILY #90 tab 04/28/21 ammonium lactate 12 % lotion 1 applic TOPICAL DAILY #400 g 06/17/21 famotidine 20 mg tablet 20 mg PO DAILY #90 tab 06/19/21 acetaminophen 500 mg tablet 500 mg PO Q6H PRN 07/15/21 (Tylenol Extra Strength) acetylcysteine 600 mg capsule (NAC) 1,200 mg PO BID cap 07/15/21 ascorbate calcium (vitamin C) 500 500 mg PO DAILY 07/15/21 mg tablet calcium carbonate 600 mg-vitamin 1 tab PO DAILY 07/15/21 D3 10 mcg (400 unit) chewable tablet (Calcium 600 with Vitamin D3) melatonin 3 mg capsule 3 mg PO HS PRN 07/15/21 omega 9-kez-tsf-fish oil 100 1 cap PO DAILY 07/15/21 mg-160 mg-1,000 mg capsule (Fish Oil) Bedside Commode #1 ea 08/03/21 Raised Toilet Seat #1 ea 08/03/21 loratadine 10 mg tablet 10 mg PO DAILY 08/03/21 Current Visit Medications: Current Medications Generic Name Dose Route Start Last Admin Trade Name Gómez PRN Reason Stop Dose Admin Acetaminophen 1,000 mg 08/05/21 06:00 Acetaminophen 500 Mg Tab PO 08/05/21 23:59 PREOP YENNY Celecoxib 400 mg 08/05/21 06:00 Celecoxib 200 Mg Cap PO 08/05/21 23:59 PREOP [facility] Ringer's Solution 1,000 mls @ 80 mls/hr 08/05/21 06:00 IV 08/22/21 23:59 INFUSION [facility] Vancomycin/PEG/NADA/Lysine/Water 1 gm in 200 mls @ 133.333 mls/hr 08/05/21 06:00 Vancocin Injection IVPB 08/05/21 16:00 PREOP [facility] Tranexamic Acid 1,000 mg/ 60 mls @ 360 mls/hr 08/05/21 06:00 Sodium Chloride IVPB 08/05/21 16:00 PREOP [facility] Cefazolin Sodium/Dextrose 2 gm in 50 mls @ 100 mls/hr 08/05/21 06:00 Ancef Duplex IVPB 08/05/21 16:00 PREOP [facility] IV Miscellaneous Supplies 1 each 08/05/21 06:00 Iv Access IV 08/22/21 23:59 DIRECTED YENNY Sodium Chloride 0 ml 08/05/21 06:00 Normal Saline Flush 10 Ml Syr IV 08/22/21 23:59 PRN PRN Sodium Chloride 0 ml 08/05/21 06:00 Normal Saline 10 Ml Vial IJ 08/22/21 23:59 DIRECTED PRN Sterile Water 0 ml 08/05/21 06:00 Water,Injection,Sterile 10 Ml Vial IJ 08/22/21 23:59 DIRECTED PRN PFSH Active Problems Active Problems: Problem Status Onset Code Dry skin L85.3 Rash R21 Chronic diarrhea Osteoarthritis of right hip M16.11 Schizoaffective disorder CVA (cerebral vascular accident) I63.9 Acute CVA (cerebrovascular accident) I63.9 DVT prophylaxis Z29.9 Discharge planning issues Z02.9 Schizoaffective disorder F25.9 Right leg pain M79.604 Left shoulder pain M25.512 Hypomagnesemia E83.42 Hypokalemia E87.6 Accidental overdose T50.901A AMS (altered mental status) R41.82 Depression F32.A Hypokalemia E87.6 Elevated troponin R77.8 Lethargy R53.83 Thoracic aortic aneurysm I71.2 Hematuria R31.9 Degenerative joint disease of right hip M16.11 Degenerative joint disease of left hip M16.12 Left knee DJD M17.12 Hip pain, right M25.551 Bilateral knee pain M25.561, M25.562 Leg swelling M79.89 Rash R21 Hydradenitis L73.2 Abnormal weight loss 06/21/12 R63.4 Hyponatremia 03/24/94 E87.1 MRSA (methicillin resistant staph aureus) culture positive 04/04/13 Z22.322 Facial tic 04/04/13 F95.9 Urge urinary incontinence 02/01/14 N39.41 Smoker F17.200 Schizoaffective disorder F25.9 Right ankle pain 11/01/14 M25.571 Primary malignant neoplasm of vagina C52 Osteoarthritis of knee 12/14/11 M17.10 Hypothyroidism E03.9 H/O methicillin resistant Staphylococcus aureus 04/04/13 Z86.14 GERD (gastroesophageal reflux disease) 03/14/14 K21.9 Folliculitis L73.9 Facial tic F95.9 Edentulous 10/17/13 K00.0 Diarrhea 05/15/12 R19.7 Medical History Medical History Folliculitis GERD (gastroesophageal reflux disease) Hx MRSA infection Hx of malignant neoplasm of vagina Hypothyroidism Osteoarthritis Urge urinary incontinence Surgical History Surgical History Colonoscopy - MAC (01/12/11) Colonoscopy - MAC (02/14/17) Tobacco Smoking/Tobacco Use Status: Current-Occasional Tobacco Type: cigarettes Passive smoking exposure: Yes Alcohol Alcohol Intake: current Alcohol intake frequency: holidays/special occasions only Substance Use Substance use: Never Substance use type: does not use Vital Signs and Lab Results Lab Results Blood Type / Crossmatch: Patient ABO/Rh O Positive 08/03/21 Antibody Screen NEGATIVE 08/03/21 Complete Blood Count: White Blood Count 8.74 10^3/uL (4.4-10.8) 08/03/21 10:35 08/03/21 Red Blood Count 4.22 10^6/uL (3.93-5.22) 08/03/21 10:35 08/03/21 Hemoglobin 12.9 g/dL (11.2-15.7) 08/03/21 10:35 08/03/21 Hematocrit 40.3 % (36.0-46.0) 08/03/21 10:35 08/03/21 Platelet Count 288 10^3/uL (130-400) 08/03/21 10:35 08/03/21 Complete Metabolic Panel: Sodium Level 141 mmol/L (136-145) 08/03/21 10:35 08/03/21 Potassium Level 3.7 mmol/L (3.5-5.1) 08/03/21 10:35 08/03/21 Chloride Level 106 mmol/L (98-107) 08/03/21 10:35 08/03/21 Carbon Dioxide Level 25.4 mmol/L (21.0-32.0) 08/03/21 10:35 08/03/21 Blood Urea Nitrogen 16 mg/dL (7-18) 08/03/21 10:35 08/03/21 Creatinine 0.7 mg/dL (0.55-1.02) 08/03/21 10:35 08/03/21 Estimated GFR/1.73 m2 >= 60.00 (mL/min/1.73m2) 08/03/21 10:35 08/03/21 Calcium Level 9.8 mg/dL (8.5-10.1) 08/03/21 10:35 08/03/21 Glucose Level 111 mg/dL (74-106) H 08/03/21 10:35 08/03/21 Liver Function Panel: No Data to Display Coagulation Panel: No Data to Display Cardiac Panel: No Data to Display Arterial Blood Gas: No Data to Display Venous Blood Gas: No Data to Display Pancreas Panel: No Data to Display Thyroid Panel: No Data to Display Infectious Disease: Coronavirus (COVID-19)(PCR) Negative (Negative) 08/03/21 10:46 08/03/21 Coronavirus 2019 Source Nasal/Nares 08/03/21 10:46 08/03/21 Blood Cultures: No Data to Display Toxicology Panel: No Data to Display Imaging and Studies Imaging and Studies Study information below may be from another EMR and interpreted by another provider. Please see original notes in EMR for more complete details. EKG Summary: 02/12: normal. Echocardiogram Summary: 02/12: LVEF 65%, no WMA. boarderline LA dilation. CT Summary: 02/12 CTA head neck: no prominent stenosis in carotid/vertebral arteries. MRI Summary: 02/12: no sig intracranial findings. Anesthesia Assessment and Plan Anesthesia History Personal History: Unknown Anesthesia History Family History: Family History Unknown Exercise Tolerance Exercise Tolerance: Metabolic Equivalents>4 Cardiac & Pulmonary Exam Cardiac Exam: Normal S1/S2 Heart Sounds Pulmonary Exam: Clear Bilateral Breath Sounds Implantable Cardiac Device Does patient have a Pacemaker or an ICD?: No Airway Exam Known Difficult Airway: No Mallampati Class: 3 Mouth Opening: Narrow (< 3cm) Thyromental Distance: Less than 3 cm Neck Range of Motion: Full ROM and Limited ROM Neck Circumference: Normal Teeth Condition: Edentulous ASA Classification ASA Score: ASA 3 Emergency Case?: No NPO Status NPO Status: NPO Clears >2 hours, Solids >8 hours Anesthesia Plan Resuscitation Status: Full Code Anesthesia Technique: Spinal Anesthesia Airway Planned: Natural Airway Monitors Used: Standard Monitors Preoperative Comments:: 66 yo female for right FEI. Sig PMHx: CVA (ambiguous MRI, presented with dysarthria/hypophonia started on ASA/clopidogrel), schizoaffective, hypothyroid (on replacement) , GERD (famotidine), occ smoker, former EtOH. Her last dose of plavix is unclear, it was likely 4-5 days ago. Will plan on GA instead of spinal.
[2021-08-05] MEDS: VANCOMYCIN/WATER (PEG) 1 GM/200 ML BAG IVPB (06:36)
[2021-08-05] MEDS: Lactated Ringers 1,000 ML 80 ML IV (06:40)
[2021-08-05] MEDS: Celecoxib 200 MG CAP 400 MG PO (06:41)
[2021-08-05] MEDS: Acetaminophen 500 MG TAB 1000 MG PO (06:41)
[2021-08-05] MEDS: ceFAZolin 2 GM/50 ML BAG IVPB (07:41)
[2021-08-05] MEDS: Ketorolac 30 MG/ML VIAL (08:17)
[2021-08-05] MEDS: Bupivacaine 0.25% Pres-Free 30 ML VIAL (08:17)
--- NOTE | 2021-08-05 09:09 | DI.RAD_ITS ---
Exam(s) XR HIP RT IN OR EXAM: XR HIP RT IN OR CLINICAL HISTORY: OSTEOARTHRITIS RIGHT HIP. TECHNIQUE: 2D and realtime digital imaging was performed. COMPARISON: CR XR HIP RT COMPLETE AP PELVIS from 07/29/2021 FINDINGS: Fluoroscopy was provided in the OR for Dr. Barber. Hard copy images show placement of a right hip prosthesis. Please see procedure note for details. Fluoro time 32.4 seconds RADIATION DOSE DELIVERED: nohemy Barbosa=3.35 mGy
--- NOTE | 2021-08-05 09:33 | PDOC.DSDIS_ITS ---
Discharge Plan Disposition Patient Disposition: HOME Condition: Good Discharge Details Reason For Visit: Right Hip DJD Attending Provider: González Barber Primary Care Provider: Dillon Scott Home Meds and New Rx's Prescriptions: New celecoxib 200 mg capsule 200 mg PO BID PRN (Reason: pain) Qty: 60 1RF oxycodone 5 mg tablet 5 mg PO Q6H Qty: 6 0RF Continued ascorbate calcium (vitamin C) 500 mg tablet 500 mg PO DAILY 0RF melatonin 3 mg capsule 3 mg PO HS PRN0RF acetylcysteine [NAC] 600 mg capsule 1,200 mg PO BID 0RF Fish Oil 100-160-1,000 mg capsule 1 cap PO DAILY 0RF Calcium 600 with Vitamin D3 600 mg-10 mcg (400 unit) tablet,chewable 1 tab PO DAILY 0RF acetaminophen [Tylenol Extra Strength] 500 mg tablet 500 mg PO Q6H PRN0RF Restasis MultiDose 0.05 % drops 1 drp OP Q12H Qty: 5.5 1RF One Daily Multi-Vit w-Mineral 4.5 mg iron tablet 1 tab PO DAILY Qty: 100 3RF atorvastatin 40 mg tablet 40 mg PO QPM Qty: 90 3RF clopidogrel 75 mg tablet 75 mg PO DAILY Qty: 90 1RF ammonium lactate 12 % lotion 1 applic topical DAILY Qty: 400 2RF famotidine 20 mg tablet 20 mg PO DAILY Qty: 90 3RF (DME) Raised Toilet Seat See Rx Instructions .ROUTE .MEDSUPPLY Qty: 1 0RF Rx Instructions: As directed (DME) Bedside Commode See Rx Instructions .Route .MEDSUPPLY Qty: 1 0RF Label Comments: caregiver states it is coming today Rx Instructions: Utilize commode during initial recovery s/p hip replacement loratadine 10 mg tablet 10 mg PO DAILY 0RF clozapine 100 mg Tablet 100 mg PO HS Qty: 30 0RF aspirin 81 mg Tablet,Delayed Release (Dr/Ec) 81 mg PO DAILY Qty: 30 0RF Label Comments: car caregiver assisted living reports it was discontinued bupropion HCl 100 mg Tablet Sustained-Release 12 Hr 100 mg PO QAM Qty: 30 0RF levothyroxine 88 mcg Tablet 88 mcg PO DAILY Qty: 30 0RF Discharge Instructions Additional Instructions: Total Hip Discharge Instructions Activity: The most important activity is to walk. Use your walker to assist with you mobilization. You should try to take short walks a few times a day. You have no restrictions on movement or positioning, but do not try to force what you do. You will find some stiffness and weakness with hip flexion (lifting your knee). Do not try to strengthen this too early, continue to prac celestino walking and stairs and this will come. - Physical therapy can be helpful to help return you to a normal gait and improve your flexibility and strength. - You should wear the JORGE hose on both legs for 2 weeks. Dressing: Keep the surgical dressing in place until follow-up. It may get wet after 3 days but avoid soaking the dressing. If it gets wet, just lightly pat dry. It is important to always keep some gauze between skin folds, especially when you are sitting. Most people cover the dressing with ClingWrap or SaranWrap to keep from getting soaked. Medications: - You should take Tylenol and an anti-inflammatory Celebrex as your primary pain control medications. If the Celebrex is too expensive or not covered, please call the office for another alternative (Advil/Ibuprofen or Naproxen/Aleve). - You have been prescribed a stronger pain medication Oxycodone for breakthrough pain, take as needed as prescribed. - You will continue your stomach acid reduction agent Famotidine to help reduce stomach acid and reflux. - You will be taking Aspirin and Plavix for DVT prevention unless instructed otherwise. - If you have constipation you should take Colace or Miralax (both [id number]). It takes most people 3-4 days to have a bowel movement. Follow-up: 2 weeks If you have any acute concerns or questions, please do not hesitate to contact the office at [phone]. You may contact Dr. Barber with any questions after hours through the hospital at [phone] or on his cell phone at [phone]. 1. Encounter Date and Reason I certify that Yaimaasif Wang was seen by González Barber MD on 08/05/21 and that I had a [id number] encounter with this patient that meets the physician face to face encounter requirements. 2. Clinical Findings Supporting Skilled Need and Homebound Status I certify that home health services are medically necessary, include either intermittent shelter and/or physical/speech therapy, and that this patient is homebound in that absences from the home require considerable and taxing effort and are infrequent or of short duration, or are attributable to the need to receive medical care. [X] (a) Attached documentation from encounter provides clinical findings supporting skilled need and homebound status (including what assistance patient requires to leave the home). The encounter with the patient was in whole, or in part, for the following medical condition, which is the primary reason for home health care: Right Hip DJD Care Home: Physical Therapy: Yaima will benefit from home based physical and occupational therapy due to her weakness and gait dysfunction following hip replacement surgery. She is weight-bearing as tolerated without restrictions or precautions. Speech Therapy: Homebound: Yaima is unable to leave her home unassisted. She has notable weakness and gait dysfunction. 3. Certification and Authentication I certify that I composed the above information based on my clinical judgement relating to this patient's medical condition and, if applicable, clinical findings communicated to me by the NPP or inpatient physician who performed the Home Health Referral. All further orders will be obtained through Dr. Barber Referrals: González Barber MD [ [facility] STAFF PHYSICIAN] - Equipment/Supplies: Walker Activity:: Activity as Tolerated Remove Dressings/Wound Care:: Do Not Remove Shower/Bathe:: Cover Diet:: As Tolerated Discharge Orders Discharge Orders: Discharge Order (Routine); Ordered 08/05/21 Ordered By: González Barber
--- NOTE | 2021-08-05 09:53 | W.ANESPOSTOP ---
Postoperative Evaluation Date, Time and Location Date Performed: 08/05/21 Time Performed: 09:53 Patient Location: PACU Vital Signs Most Recent Imported Vital Signs: Most Recent Vital Signs Temp Pulse Resp BP Pulse Ox 36.5 C 72 20 117/63 99 08/05/21 09:40 08/05/21 09:40 08/05/21 09:40 08/05/21 09:40 08/05/21 09:40 Pain Score Most Recent Pain Score: Most Recent Pain Score Pain Level 0 08/05/21 06:32 Assessment Mental Status: Awake (Alert & Oriented to Patient Baseline) Airway and Respiratory Function: Patent airway with normal (patient baseline) respiratory exam Cardiovascular Function: Hemodynamically Stable Hydration Status: Adequately Hydrated Nausea & Vomiting: No Nausea or Vomiting Pain: Pain is tolerable per patient Peripheral Nerve Block: Patient did not receive a nerve block
--- NOTE | 2021-08-05 11:48 | PT.INIE ---
Date of service: 08/05/21 Time of Service: 11:48 PT Notes Visit Reasons: Right Hip DJD Physical Therapy Day Surgery Initial Evaluation Date: 08/05/2021 Referring Doctor: González Barber MD PT Orders: PT CONSULT: S/P Ortho surgery. S/P R FEI Precautions: Fall. Standard. WBAT on R LE with AD. Patient Profile/Admitting Diagnosis: Yaima is a 66-year-old female with schizoaffective disorder with degenerative joint disease of the right hip and is status post right total hip arthroplasty on postoperative day 0. PMHX: All Active Problems?(Updated 06/12/21 @ 14:06 by Dillon Scott MD) Dry skin (Acute) Rash (Acute) Chronic diarrhea (Acute) Osteoarthritis of right hip (Acute) Schizoaffective disorder (Acute) CVA (cerebral vascular accident) (Chronic) Acute CVA (cerebrovascular accident) (Acute) DVT prophylaxis (Acute) Discharge planning issues (Acute) Schizoaffective disorder (Chronic) Hypomagnesemia (Acute) AMS (altered mental status) (Acute) Depression (Chronic) Hypokalemia (Acute) Lethargy (Acute) Thoracic aortic aneurysm (Acute) 4.[address] from 09/2020Hematuria (Acute) Degenerative joint disease of right hip (Chronic) Degenerative joint disease of left hip (Chronic) Left knee DJD (Chronic) Most recent injection: 05/27/2021; 08/18/20; 03/31/2020Hip pain, right (Acute) Bilateral knee pain (Acute) Leg swelling (Acute) Rash (Acute) Hydradenitis (Acute) in rt upper thigh regionAbnormal weight loss (Acute 06/21/12) Hyponatremia (Acute 03/24/94) MRSA (methicillin resistant staph aureus) culture positive (Acute 04/04/13) 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 Colonoscopy - [facility] (01/12/11) Colonoscopy - [facility] (02/14/17) Social History/Home Situation: Yaima lives alone in an apartment in [place] and have received mental and psychiatric counseling locally.? Sister lives close by and is supportive. Sherita is a friend who will be supporting patient as she recovers from this surgery. Equipment Owned/DME: None Subjective: Agreeable to PT consult.? Friend Sherita willing to learn everything she needs to know so she may help Yaima as much as possible at home. Objective: General Observation: Supine in bed. Friend Sherita is present inside room. Mental Status: Alert and oriented as to person, place, time, and purpose. Able to pay attention and respond appropriately. Pain: 3-4/10 in R hip with ambulation ROM: Right Lower Extremity: Hip flexion WFL. Hip abduction WFL. Knee flexion WFL. Ankle dorsiflexion WFL. Ankle plantarflexion WFL. Left Lower Extremity: Hip flexion WFL. Hip abduction WFL. Knee flexion WFL. Ankle dorsiflexion WFL. Ankle plantarflexion WFL. Strength: Right Lower Extremity: Hip flexors 4-/5. Hip abductors 4-/5. Knee flexors 4-/5. Knee extensors 4-/5. Ankle dorsiflexors 5/5. Ankle plantarflexors 5/5. Left Lower Extremity: Hip flexors 5/5. Hip abductors 5/5. Knee flexors 5/5. Knee extensors 5/5. Ankle dorsiflexors 5/5. Ankle plantarflexors 5/5. Bed Mobility/Transfers: Rolling standby assist Supine to sit standby assist Sit to supine standby assist Sit to stand contact guard assist Stand to sit standby assist Bed to chair contact-guard assist Gait: Instructed patient with level surface ambulation of 150 feet requiring contact-guard assist using front wheeled walker.? Step through gait pattern. No loss of balance. No shortness of breath. Denies headache, chest pain, and dizziness throughout activity. Balance: Static Sitting: Normal Dynamic Sitting: Normal Static Standing: Fair Dynamic Standing: Fair Special Tests: Mobility Limitations Standardized Measure [facility] 6 clicks Basic Mobility Inpatient Short Form: Raw Score: 16? CMS Score: 54% deficit? ? ? Informed Consent/Education:? Patient was instructed in purpose of PT consult and plan of care. Patient and caregiver Sherita were provided with written instructions for postoperative exercise for the hip. Assessment: Susu requires the use of a front wheeled walker for all mobility ADL performance to maximize independence and reduce fall risk. She will have the support of her friend Sherita that she recovers at home. Patient presents with clinical signs and symptoms consistent with current/admitting diagnoses that have resulted to mobility limitations, gait instability, generalized weakness, and overall ADL decline as demonstrated by the following impairment level findings: 1.? Decreased strength to right hip major muscle groups 2.? Impaired standing balance 3.? Impaired activity tolerance Impairments are contributing to the following functional limitations: 1.? Difficulty with ambulation 2.? Increased completion time for mobility ADL performance 3.? Increased risk for falls 4.? Difficulty with managing steps alone safely Patient is assessed as a 61140 moderate complexity based on the following: History: 65-year-old female with past medical history as indicated above Examination: Demonstrable impairment in strength, balance, and mobility level with underlying impairments and functional limitations as exhibited above as well as deficit score of 54% utilizing the [facility] Mobility Inpatient Short Form Presentation: Stable Decision Makin moderate complexity Goals: N/A. PT evaluation 1 treatment session only for HEP instruction and functional mobility training. Plan of Care/Treatment Plan: N/A. PT evaluation 1 treatment session only for HEP instruction and functional mobility training. DISCHARGE RECOMMENDATIONS: [] ? Home with no services [] [] ? Home with services [specify] [X] ? Home with outpatient PT. Home when medically cleared by orthopedic surgeon. Will benefit from outpatient PT services in order to facilitate return to independent community ambulation and independent ADL performance without an assistive/adaptive device. [] ? SNF for continued rehabilitation [] [] ? [facility] Assistant Care [] [] ? SNF versus LTC based on ability to participate and progress [] TREATMENT CODE/TIME: 82476 x 20 minutes, 9753 0 x 18 minutes beginning at 11:48 AM. Thank you for the opportunity to participate in the care of this patient. Mabel Jordan PT, DPT, CLT [facility] [place], [place]
--- NOTE | 2021-08-06 08:11 | ROE_ITS ---
Date of service: 08/05/21 Time of Service: 09:15 Operative Note Operative Note DATE OF PROCEDURE: 08/05/21 PRE-OP DIAGNOSIS: Left Hip Osteoarthritis POST-OP DIAGNOSIS: same PROCEDURE: Left Anterior Total Hip Arthroplasty with Intraoperative Navigation SURGEON: González Barber MUSHROOM FARMER: Blair Weber ANESTHESIA TYPE: Spinal Refer to Anesthesia Record ESTIMATED BLOOD LOSS: 150 PATHOLOGY: none sent COMPLICATIONS: None Patient was transported to: PACU Patient's condition: stable Implants: 1. Depuy Farley Acetabular Component, 50mm 2. Depuy Acetabular Liner, [id number] 3. Depuy Corail Standard 125 Collared Femoral Stem, Size 13 4. Depuy Altrx Ceramic Femoral Head, Size 32+1mm Indications: I have seen Yaima in clinic for symptoms of hip arthritis with notable deformity, confirmed with radiographic findings. She has exhausted nonoperative methods and was having significant limitations in daily function and desired better function and less pain. I discussed the technical details of a hip replacement. I explained the risks of the procedure to include, but not limited to, bleeding, infection, pain, stiffness, fracture, damage to nerves and vessels, damage to muscles and tendons, loosening, instability, leg length inequality, need for repeat procedure, blood clot and cardiopulmonary demise. Despite these risks, she elected to proceed. Findings: There was significant signs of arthritis throughout the hip with flattening of the femoral head and loose bony fragments within the joint space. Procedure Description: Yaima was greeted in the preoperative holding area where the correct side was identified and marked. The consent was reviewed with the patient and signed. The history and physical was updated. All questions were answered. Yaima was taken back to the operating room. A spinal anesthestic was then administered. The feet were wrapped with cast padding and Coban and then placed into the boot liners and then into the boots. Care was taken to protect the skin and make sure the heels were fully down and the boots were stable. The patient was then positioned onto the HANA table. Both legs were held in a neutral position. SCDs were applied. The patient was then slid down onto a peroneal post. Prophylactic antibiotics in the form of Cefazolin were administered. 1g of Tranxemic Acid was given intravenously within 30 minutes of incision. The right leg was then prepped with Chloraprep and draped in a standard fashion. A second prep with Chloraprep was performed prior to placement of a shower-curtain type drape with Iodine impregnated skin protection. A timeout to confirm correct identity, side and site, procedure, allergies, anesthesia, and medical concerns was performed. An obliquely oriented incision was made starting lateral to the ASIS and running distal over the Tensor Fascia Geetha (TFL) muscle belly toward the fibular head, approximately 10cm. The skin and soft tissue was dissected sharply, through Amandeep?s fascia, and to the fascia of the TFL. With the fascia and superior border of the IT band identified, the fascia was incised with a new knife just above any perforators from the IT band. The TFL muscle belly was bluntly dissected away from the fascia and moved laterally. The fat between TFL and rectus was identified to ensure the dissection was not within the TFL. Blunt dissection created space between abductors and the capsule and retractor was placed over the lateral femoral neck. The fibers of the rectus femoris tendon were identified and these were freed from the anterior capsule. A second cobra retractor was placed around the medial femoral neck. The TFL was further retracted laterally to show the deep fascia. Careful dissection through this layer identified three main crossing vessels of the lateral femoral circumflex. These were cauterized in multiple locations and then cut without any noticeable bleeding. The TFL was further released bluntly from the deep fascia to expose anterior hip capsule and fat The Last orthopaedic retractor was then placed beneath the TFL and against sartorius and medial soft tissues to protect and retract the soft tissues. A T-capsulotomy was then performed starting at the superior lateral acetabulum and moving distally to the intertrochanteric ridge. These capsular flaps were tagged with a No. 1 Ethibond and elevated from within. Large loose fragments of bone were encountered in the intra-articular space. The capsular flaps were released to the shoulder of the lateral neck and to the lesser trochanter to give excellent visualization of the proximal femur. A neck osteotomy was performed using an oscillating saw based on preoperative templates. This cut started in the shoulder and of the lateral neck and exited medially. The saw was at all times directed medially to avoid injury to the greater trochanter. Gross traction was applied to the leg and the osteotomy opened. The femoral head was removed with a corkscrew, making sure to protect the TFL on its exit. Traction was released after head removal. This was measured on the back table to determine the starting reamer size. Portions of the rectus obscuring visualization were minimally elevated off the superior acetabulum. An anterior retractor was placed over the anterior wall between capsule and labrum and attached to the Gripper retraction system. The femur was rotated to 90 degrees and medial capsule was fully released until the lesser trochanter was palpable and visible; the femur was returned to 30 degrees. A posterior retractor was placed similarly between capsule and labrum. This provided excellent visualization. The contents of the cotyloid fossa were removed with electrocautery and the labrum was removed with a knife. There was a notable floor osteophyte. There was significant chondromalacia of the superior acetabulum. Acetabular reaming began with a 46mm reamer. This first reaming was directed anterior to posterior and medial to get down to the true floor. This was inspected and reamed until the true floor was reached. The anterior retractor was then released and entry and exit was provided by traction on the capsular flaps. I then reamed sequentially up to a 50mm reamer where good fit was obtained. The larger reamers were oriented based on anatomical reference of the anterior and lateral yan to ensure proper abduction and anteversion. Positioning and size was confirmed with the fluoroscopy. A 50mm Depuy Farley acetabular component was selected. The acetabulum was reamed around the periphery with the selected acetabular size to prevent a rim fit. The deep tissues were irrigated. The acetabular component was then impacted in a position of about 40-45 degrees of abduction and 15-20 degrees of anteversion, using the patient?s anatomy as the ultimate landmark. Fluoroscopy was used to confirm this. There was excellent field crop farm worker of the acetabular component and the inserting handle was removed. The acetabular liner, Depuy [id number] polyethylene liner, was inserted and lined up with the tines of the acetabular component. There was no soft tissue interposition. The liner was then impacted into position and confirmed to be well-seated. A portion of the evangelist-articular cocktail was then injected around the acetabulum into the capsule and periosteum. This cocktail consisted of 50cc of 0.25% Bupivicaine and 20cc of Exparel and 30mg of Ketorolac. The leg was rotated to 120 degrees. Any remaining medial capsule was released until the lesser trochanter was easily palpable. A retractor was placed medially. The lateral capsule was further released into the shoulder to allow access to the greater trochanter. A Deras retractor was placed over the greater trochanter which allowed the trochanter to flip in front of the capsule for excellent exposure. The leg was brought down into maximal extension and 20 degrees of adduction while ensuring there was no impingement on the acetabulum. Any remnant capsule within the trochanter was released. Piriformis and obturator externis were identified and protected. There was excellent access to the proximal femur. The lateral neck remnant was removed with a rongeur. A blunt canal probe was used to identify the canal and trajectory for later broaching. A box osteotome initiated the broach course. A small curved rasp and a curved curette were used to work laterally. Broaching then began with a size 8 Corail broach. This was inserted manually around the trochanter and into the canal before mallet blows. The broach was seated to a few millimeters below the cut level based on the neck cut and the preoperative template. Sequential broaching was continued with the Beamingse pneumatic broaching device until a tight fit was obtained with good rotational control of the femur. A trial short neck was inserted along with a +5 trial head. The leg was brought out of extension and adduction and then reduced with traction and internal rotation. The leg was stable anteriorly in a position of 30 degrees of extension and 90 degrees of external rotation. Fluoroscopy was used to ensure there was no fracture and the stem was seated well. Leg lengths were checked with an AP pelvis and pelvic reference points. [employer] navigation system was used to confirm appropriate positioning and leg length and offset. This demonstrated some over-lengthening but recreation of offset which would be better treated with a 125 degree neck. Once content with the desired offset and leg lengths, the leg was brought back into extension, external rotation and adduction. The periosteum and surrounding tissue was injected with remaining portion of the evangelist-articular cocktail. The proximal femur was irrigated as well as the deep tissues. The Depuy Corail standard 125 collared stem, size 13, was then manually inserted into the proximal femur making sure to control rotation. It was then malleted into position with light blows, giving breaks to allow bone expansion and decrease risk of fracture. The selected Depuy Altrx Ceramic Head, size 32+1mm, was then placed onto the clean and dry trunnion and secured with impaction onto the tapered fit. The leg was brought back out of extension and adduction and reduced with traction and internal rotation. Stability was confirmed with no shuck at 90 degrees of external rotation and 30 degrees of extension. No impingement through range of motion arc. Final x-ray images were obtained with fluoroscopy to confirm adequate positioning and no intraoperative fracture. The deep tissues were thoroughly irrigated with Irrisept chlorhexadine solution. The capsule was then reapproximated with the previously placed Ethibond sutures. The TFL fascia was finally closed with a No. 2 Stratafix, barbed suture. Deep tissues were then reapproximated with 0 Vicryl and a running 2-0 Vicryl. The skin was closed with a running 4-0 Monocryl in a subcuticular fashion. This was reinforced with skin glue. A Mepilex silver dressing was applied. At the end of the case, all counts were correct. Yaiam was transferred to the hospital bed without difficulty and suffering no apparent complication. Yaima has a good prognosis. Physical therapy will start today and without restrictions, weight-bearing as tolerated. Her regular dose of Aspirin and Plavix will be used for DVT prophylaxis.
== END 2021-08-05 14:05 | disposition home or self-care (01) ==
PROVIDERS: PCP Family Medicine; Visit Provider Student in an Organized Health Care Education/Training Program
PROC: (CPT 27130; principal; 2021-08-05 07:30)
DX: M16.11 Unilateral primary osteoarthritis, right hip (principal); K21.9 Gastro-esophageal reflux disease without esophagitis; E03.9 Hypothyroidism, unspecified
CPT/HCPCS: 27130; 20985; 97162; 97530; 73501; J0690; J1100; J1885; J2001; J2405; J2704

== ENCOUNTER 2021-08-20 11:00 | Outpatient (CLI) | payer MEDICARE, SELFPAY ==
--- NOTE | 2021-08-20 10:00 | DI.RAD_ITS ---
Exam(s) XR HIP RT COMPLETE AP PELVIS EXAM: XR HIP RT COMPLETE AP PELVIS CLINICAL HISTORY: 1st post op R FEI TECHNIQUE: COMPARISON: CR XR HIP RT COMPLETE AP PELVIS from 07/29/2021 FINDINGS: Two views were obtained. There is a total hip joint replacement position on the right. The componen ts appear well seated. Note is made of moderate to severe degenerative changes of the left hip as we ll. IMPRESSION: RADIATION DOSE DELIVERED: Total DLP
== END 2021-08-20 11:01 | disposition home or self-care (01) ==
LOC: DIORS 11:01
PROVIDERS: PCP Family Medicine; Referring Provider Family Medicine; Visit Provider Physician Assistant
DX: Z96.641 Presence of right artificial hip joint (principal)
CPT/HCPCS: 73502

== ENCOUNTER → 2021-09-18 10:56 | Outpatient (BNVA) | payer MEDICARE, SELFPAY | PROVIDERS: PCP Family Medicine; Referring Provider Family Medicine; Visit Provider Student in an Organized Health Care Education/Training Program | DX: Z47.1 Aftercare following joint replacement surgery (principal); Z96.641 Presence of right artificial hip joint ==

== ENCOUNTER 2021-10-20 11:16 | Outpatient (CLI) | payer MEDICARE, SELFPAY ==
[2021-10-20 15:38] LABS: Abs Immature Grans 0.02 10^3/uL (0.0-0.06); Absolute Basophil Count 0.04 10^3/uL (0.0-0.2); Absolute Eosinophil Count 0.09 10^3/uL (0.0-0.7); Absolute Monocyte Count 0.55 10^3/uL (0.1-0.8); Absolute Neutrophil Count 6.08 10^3/uL (1.2-6.7); Basophils % 0.5; HCT 39.5 % (36.0-46.0); HGB 12.7 g/dL (11.2-15.7); Immature Grans % 0.2; MCH 30.6 pg (27.0-33.0); MCHC 32.2 % (32.0-36.0); MCV 95 fL (80-95); MPV 10.3 fL (8.0-11.0); Monocytes % 6.4; Neutrophils % 70.9; Platelet Count 277 10^3/uL (130-400); RBC 4.15 10^6/uL (3.93-5.22); RDW 13.2 % (11.7-14.6); WBC 8.58 10^3/uL (4.4-10.8)
== END 2021-10-20 11:17 | disposition home or self-care (01) ==
LOC: LBO 11:18
PROVIDERS: PCP Family Medicine; Visit Provider Psychiatry & Neurology Psychiatry
DX: F20.9 Schizophrenia, unspecified (principal); Z79.899 Other long term (current) drug therapy
CPT/HCPCS: 36415; 85025

== ENCOUNTER → 2021-10-29 02:19 | Outpatient (CLI) | payer MEDICARE, SELFPAY ==
--- NOTE | 2021-10-29 08:30 | DI.CT_ITS ---
Exam(s) CT CHEST WO EXAM: CT CHEST WO CLINICAL HISTORY: reassess thoracic aneurysm,I71.2. TECHNIQUE: Multi planar reconstructions were performed. CONTRAST MATERIAL: None COMPARISON: CT CT CHEST LUNG CANCER SCREEN from 10/15/2020 FINDINGS: CHEST: LUNGS: There is a noncalcified 6 millimeter pleural based nodule in the anterior basal segment of the left lower lobe. This remains unchanged from prior study. Previously described 3-4 millimeters sub pleural nodule in the right lower lobe also unchanged. Other previously described small nodules are also unchanged. No new ominous masses. No pleural effusions. No new findings in the trachea and m ainstem bronchi. MEDIASTINUM: There is no obvious hilar nor mediastinal adenopathy. Visualized thyroid unremarkable.No obvious axillary adenopathy CARDIAC: Heart size is normal. There is no pericardial effusion.Caliber of the ascending thoracic ao rta is again noted be enlarged, measuring 4 cm. VISUALIZED UPPER ABDOMEN:No new significant findings OSSEOUS: No significant osseous lesions.. IMPRESSION: 1. Continued stable appearance of the previously described bilateral nodules. No new nodules nor ple ural effusions nor obvious intrathoracic adenopathy evident on this noninfused study. 2. Enlargement of the ascending thoracic aorta is again noted, unchanged. Present measurement is 4 c m. RADIATION DOSE DELIVERED: 380mGy.cm Total DLP DATA REPOSITORY: All CT scans at this facility are submitted to the National Radiology Data Registry (NRDR) Dose Index Registry (DIR) with the [employer] ([employer]). RADIATION OPTIMIZATION: All CT scans at this facility use at least one of these dose optimization te chniques: automated exposure control; mA and/or kV adjustment per patient size (includes targeted exa ms where dose is matched to clinical indication); or iterative reconstruction.
== END ==
PROVIDERS: PCP Family Medicine; Visit Provider Family Medicine
DX: I71.2 Thoracic aortic aneurysm, without rupture (principal); R91.8 Other nonspecific abnormal finding of lung field; I77.89 Other specified disorders of arteries and arterioles; Z01.818 Encounter for other preprocedural examination; M16.12 Unilateral primary osteoarthritis, left hip
CPT/HCPCS: 71250

== ENCOUNTER 2021-11-09 01:23 | Outpatient (CLI) | payer MEDICARE, SELFPAY ==
[2021-11-09 11:59] LABS: Source Nasal/Nares
[2021-11-09 17:16] LABS: COVID-19 PCR Negative (Negative)
== END 2021-11-09 01:24 | disposition home or self-care (01) ==
LOC: LBO 01:23
PROVIDERS: PCP Family Medicine; Visit Provider Student in an Organized Health Care Education/Training Program
DX: Z20.822 Contact with and (suspected) exposure to COVID-19 (principal); Z01.818 Encounter for other preprocedural examination
CPT/HCPCS: 36415; 80048; 87635; 85025

== ENCOUNTER 2021-11-09 02:24 | Outpatient (CLI) | payer MEDICARE, SELFPAY ==
[2021-11-09 11:19] LABS: Abs Immature Grans 0.02 10^3/uL (0.0-0.06); Absolute Basophil Count 0.03 10^3/uL (0.0-0.2); Absolute Eosinophil Count 0.18 10^3/uL (0.0-0.7); Absolute Lymphocyte Count 1.98 10^3/uL (1.2-3.4); Absolute Monocyte Count 0.44 10^3/uL (0.1-0.8); Absolute Neutrophil Count 5.97 10^3/uL (1.2-6.7); Basophils % 0.3; Eosinophils % 2.1; HCT 37.6 % (36.0-46.0); HGB 12.1 g/dL (11.2-15.7); Immature Grans % 0.2; MCH 30.5 pg (27.0-33.0); MCHC 32.2 % (32.0-36.0); MCV 95 fL (80-95); MPV 9.6 fL (8.0-11.0); Monocytes % 5.1; Neutrophils % 69.3; Platelet Count 230 10^3/uL (130-400); RBC 3.97 10^6/uL (3.93-5.22); RDW 13.1 % (11.7-14.6); RDW-SD 46.1 fL; WBC 8.62 10^3/uL (4.4-10.8)
[2021-11-09 11:40] LABS: Anion Gap 10.6 mmol/L (3-11); BUN 25 mg/dL (7-18); CO2 21.4 mmol/L (21.0-32.0); CREATININE 0.7 mg/dL (0.55-1.02); Calcium 9.9 mg/dL (8.5-10.1); Chloride 106 mmol/L (98-107); Glucose 97 mg/dL (74-106); Potassium 3.6 mmol/L (3.5-5.1); Sodium 138 mmol/L (136-145)
== END 2021-11-09 02:25 | disposition home or self-care (01) ==
LOC: LBO 02:24
PROVIDERS: PCP Family Medicine; Visit Provider Student in an Organized Health Care Education/Training Program
DX: M25.552 Pain in left hip (principal); M16.12 Unilateral primary osteoarthritis, left hip; F20.9 Schizophrenia, unspecified; Z79.899 Other long term (current) drug therapy; Z01.818 Encounter for other preprocedural examination; Z01.812 Encounter for preprocedural laboratory examination
CPT/HCPCS: 36415; 80048; 85027; 85025

== ENCOUNTER 2021-11-11 05:54 | Day surgery (SDC) | payer MEDICARE, SELFPAY ==
[2021-11-11] VITALS (8 sets, daily range): BP systolic 112–140; BP diastolic 66–88; PULSE 64–74; RESP 14–22; TEMP 36.2–36.5; O2SAT 93–99; BMI 22.7
[2021-11-11] MEDS: VANCOMYCIN/WATER (PEG) 1 GM/200 ML BAG IV (06:36)
[2021-11-11] MEDS: Lactated Ringers 1,000 ML 80 ML IV (06:37)
[2021-11-11] MEDS: Celecoxib 200 MG CAP 400 MG PO (06:38)
[2021-11-11] MEDS: Acetaminophen 500 MG TAB 1000 MG PO (06:39)
--- NOTE | 2021-11-11 06:53 | W.ANESPRE ---
General Info Date of Service Date Performed: 11/11/21 Height: 5 ft 6 in Weight: 63.957 kg Body Mass Index (BMI): 22.7 Surgical Procedure: Operation Date: 11/11/21 08:20 Proposed Procedure Side Surgeon p Hip Total Hip Anterior Left González Barber MD Meds Allergies and Home Medications Allergies Allergy/AdvReac Type Severity Reaction Status Date / Time chlorpheniramine Allergy Verified 11/11/21 05:56 erythromycin base Allergy Verified 11/11/21 05:56 Penicillins Allergy Verified 11/11/21 05:56 Home Medication Medication Instructions Recorded cyclosporine 0.05 % eye drops 1 drp ophthalmic (eye) Q12H #5.5 mL 01/24/19 (Restasis MultiDose) aspirin 81 mg tablet,delayed 81 mg PO DAILY #30 tabs 04/07/21 release bupropion HCl 100 mg tablet,12 hr 100 mg PO QAM #30 tabs 04/07/21 sustained-release clozapine 100 mg tablet 100 mg PO HS #30 tabs 04/07/21 levothyroxine 88 mcg tablet 88 mcg PO DAILY #30 tabs 04/07/21 multivitamin with minerals-ferrous 1 tab PO DAILY #100 tabs 04/08/21 sulfate 4.5 mg iron tablet (One Daily Multivitamins with Minerals) atorvastatin 40 mg tablet 40 mg PO QPM #90 tabs 04/28/21 ammonium lactate 12 % lotion 1 applic topical DAILY dry skin 06/17/21 #400 grams famotidine 20 mg tablet 20 mg PO DAILY #90 tabs 06/19/21 acetaminophen 500 mg tablet 500 mg PO Q6H PRN 07/15/21 (Tylenol Extra Strength) acetylcysteine 600 mg capsule (NAC) 1,200 mg PO BID 07/15/21 ascorbate calcium (vitamin C) 500 500 mg PO DAILY 07/15/21 mg tablet calcium carbonate 600 mg-vitamin 1 tab PO DAILY 07/15/21 D3 10 mcg (400 unit) chewable tablet (Calcium 600 with Vitamin D3) melatonin 3 mg capsule 3 mg PO HS PRN 07/15/21 omega 7-nio-rat-fish oil 100 1 cap PO DAILY 07/15/21 mg-160 mg-1,000 mg capsule (Fish Oil) Bedside Commode #1 ea 08/03/21 Raised Toilet Seat #1 ea 08/03/21 loratadine 10 mg tablet 10 mg PO DAILY 08/03/21 celecoxib 200 mg capsule See Rx Instructions .Route 10/02/21 .COMPLEX #60 caps clopidogrel 75 mg tablet 75 mg PO DAILY #90 tabs 10/10/21 lorazepam 0.5 mg tablet 0.5 tab PO BID PRN 11/10/21 Current Visit Medications: Current Medications Generic Name Dose Route Start Last Admin Trade Name Freq PRN Reason Stop Dose Admin Acetaminophen 1,000 mg 11/11/21 06:00 11/11/21 06:39 Acetaminophen 500 Mg Tab PO 11/11/21 16:00 1,000 mg PREOP YENNY Administration Celecoxib 400 mg 11/11/21 06:00 11/11/21 06:38 Celecoxib 200 Mg Cap PO 11/11/21 16:00 400 mg PREOP YENNY Administration Tranexamic Acid 1,000 mg/ 60 mls @ 360 mls/hr 11/11/21 06:00 Sodium Chloride IV 11/11/21 16:00 PREOP YENNY Ringer's Solution 1,000 mls @ 80 mls/hr 11/11/21 06:00 11/11/21 06:37 IV 12/10/21 23:59 80 mls/hr INFUSION YENNY Administration Cefazolin Sodium 2,000 mg/ 100 mls @ 200 mls/hr 11/11/21 06:00 Sodium Chloride IVPB 11/11/21 18:00 PREOP YENNY Vancomycin/PEG/NADA/Lysine/Water 1 gm in 200 mls @ 200 mls/hr 11/11/21 06:00 11/11/21 06:36 Vancocin Injection IV 11/11/21 18:00 200 mls/hr PREOP YENNY Administration IV Miscellaneous Supplies 1 each 11/11/21 06:00 Iv Access IV 12/10/21 23:59 DIRECTED YENNY Sodium Chloride 0 ml 11/11/21 06:00 Normal Saline Flush 10 Ml Syr IV 12/10/21 23:59 PRN PRN Sodium Chloride 0 ml 11/11/21 06:00 Normal Saline 10 Ml Vial IJ 12/10/21 23:59 DIRECTED PRN Sterile Water 0 ml 11/11/21 06:00 Water,Injection,Sterile 10 Ml Vial IJ 12/10/21 23:59 DIRECTED PRN PFSH Active Problems Active Problems: Problem Status Onset Code Schizoaffective disorder Chronic diarrhea Diarrhea 05/15/12 R19.7 Edentulous 10/17/13 K00.0 Facial tic F95.9 Folliculitis L73.9 GERD (gastroesophageal reflux disease) 03/14/14 K21.9 H/O methicillin resistant Staphylococcus aureus 04/04/13 Z86.14 Hypothyroidism E03.9 Osteoarthritis of knee 12/14/11 M17.10 Primary malignant neoplasm of vagina C52 Right ankle pain 11/01/14 M25.571 Schizoaffective disorder F25.9 Smoker F17.200 Urge urinary incontinence 02/01/14 N39.41 Facial tic 04/04/13 F95.9 MRSA (methicillin resistant staph aureus) culture positive 04/04/13 Z22.322 Hyponatremia 03/24/94 E87.1 Abnormal weight loss 06/21/12 R63.4 Hydradenitis L73.2 Rash R21 Leg swelling M79.89 Bilateral knee pain M25.561, M25.562 Left knee DJD M17.12 Degenerative joint disease of left hip M16.12 Hematuria R31.9 Thoracic aortic aneurysm I71.2 Lethargy R53.83 AMS (altered mental status) R41.82 Depression F32.A Hypokalemia E87.6 Elevated troponin R77.8 Accidental overdose T50.901A Hypokalemia E87.6 Hypomagnesemia E83.42 Left shoulder pain M25.512 Right leg pain M79.604 Schizoaffective disorder F25.9 Discharge planning issues Z02.9 DVT prophylaxis Z29.9 Acute CVA (cerebrovascular accident) I63.9 CVA (cerebral vascular accident) I63.9 Rash R21 Dry skin L85.3 Status post right hip replacement 08/05/21 Z96.641 Medical History Medical History Folliculitis GERD (gastroesophageal reflux disease) Hx MRSA infection Hx of malignant neoplasm of vagina Hypothyroidism Osteoarthritis Urge urinary incontinence Surgical History Surgical History (Updated 11/11/21 @ 05:55 by Daya Kowalski) Colonoscopy - MAC (01/12/11) Colonoscopy - MAC (02/14/17) History of hip replacement Tobacco Smoking/Tobacco Use Status: Current-Occasional Tobacco Type: cigarettes Passive smoking exposure: Yes Alcohol Alcohol Intake: current Alcohol intake frequency: holidays/special occasions only Substance Use Substance use: Never Substance use type: does not use Details: pt. states she doesnt smoke everyday, wont give a number. Vital Signs and Lab Results Lab Results Blood Type / Crossmatch: No Data to Display Complete Blood Count: White Blood Count 8.62 10^3/uL (4.4-10.8) 11/09/21 11:10 Red Blood Count 3.97 10^6/uL (3.93-5.22) 11/09/21 11:10 Hemoglobin 12.1 g/dL (11.2-15.7) 11/09/21 11:10 Hematocrit 37.6 % (36.0-46.0) 11/09/21 11:10 Platelet Count 230 10^3/uL (130-400) 11/09/21 11:10 Complete Metabolic Panel: Sodium Level 138 mmol/L (136-145) 11/09/21 11:10 Potassium Level 3.6 mmol/L (3.5-5.1) 11/09/21 11:10 Chloride Level 106 mmol/L (98-107) 11/09/21 11:10 Carbon Dioxide Level 21.4 mmol/L (21.0-32.0) 11/09/21 11:10 Blood Urea Nitrogen 25 mg/dL (7-18) H 11/09/21 11:10 Creatinine 0.7 mg/dL (0.55-1.02) 11/09/21 11:10 Estimated GFR/1.73 m2 >= 60.00 (mL/min/1.73m2) 11/09/21 11:10 Calcium Level 9.9 mg/dL (8.5-10.1) 11/09/21 11:10 Glucose Level 97 mg/dL (74-106) 11/09/21 11:10 Liver Function Panel: No Data to Display Coagulation Panel: No Data to Display Cardiac Panel: No Data to Display Arterial Blood Gas: No Data to Display Venous Blood Gas: No Data to Display Pancreas Panel: No Data to Display Thyroid Panel: No Data to Display Infectious Disease: Coronavirus (COVID-19)(PCR) Negative (Negative) 11/09/21 11:33 Coronavirus 2019 Source Nasal/Nares 11/09/21 11:33 Blood Cultures: No Data to Display Toxicology Panel: No Data to Display Imaging and Studies Imaging and Studies Study information below may be from another EMR and interpreted by another provider. Please see original notes in EMR for more complete details. EKG Summary: 02/12: normal. Echocardiogram Summary: 02/12: LVEF 65%, no WMA. boarderline LA dilation. CT Summary: 02/12 CTA head neck: no prominent stenosis in carotid/vertebral arteries. MRI Summary: 02/12: no sig intracranial findings. Anesthesia Assessment and Plan Anesthesia History Personal History: No History of Anesthesia Complications Family History: Family History Unknown Exercise Tolerance Exercise Tolerance: Metabolic Equivalents>4 Cardiac & Pulmonary Exam Cardiac Exam: Normal S1/S2 Heart Sounds Pulmonary Exam: Clear Bilateral Breath Sounds Implantable Cardiac Device Does patient have a Pacemaker or an ICD?: No Airway Exam Known Difficult Airway: No Mallampati Class: 3 Mouth Opening: Narrow (< 3cm) Thyromental Distance: Less than 3 cm Neck Range of Motion: Full ROM Neck Circumference: Normal Teeth Condition: Edentulous ASA Classification ASA Score: ASA 3 Emergency Case?: No NPO Status NPO Status: NPO Clears >2 hours, Solids >8 hours Anesthesia Plan Resuscitation Status: Full Code Anesthesia Technique: General Anesthesia Airway Planned: Endotracheal Tube Monitors Used: Standard Monitors
[2021-11-11] MEDS: ceFAZolin 2,000 MG in Normal Saline 100 ML 200 MG IVPB (08:22)
--- NOTE | 2021-11-11 09:15 | DI.RAD_ITS ---
Exam(s) XR HIP LT IN OR EXAM: XR HIP LT IN OR CLINICAL HISTORY: Degenerative joint disease of left hip. TECHNIQUE: 2D and realtime digital imaging was performed. C-arm fluoroscopy was provided in the OR. COMPARISON: No exams were available for comparison FINDINGS: Hard copy images show placement of a left hip prosthesis. The alignment appears satisfactory. Please see procedure note for details. Fluoro time 37.1 seconds RADIATION DOSE DELIVERED: Familiar=3.56 mGy
--- NOTE | 2021-11-11 09:54 | W.PM.DSUDISC ---
Discharge Plan Disposition Patient Disposition: HOME Condition: Good Discharge Details Reason For Visit: L THR Attending Provider: González Barber Primary Care Provider: Dillon Scott Home Meds and New Rx's Prescriptions: New celecoxib 200 mg capsule 200 mg PO BID Qty: 60 0RF acetaminophen 500 mg tablet 1,000 mg PO TID Qty: 90 3RF pantoprazole 40 mg tablet,delayed release (DR/EC) 40 mg PO DAILY Qty: 30 0RF oxycodone 5 mg tablet 5 mg PO Q4H MDD 6 tabs PRN (Reason: pain) Qty: 20 0RF Continued ascorbate calcium (vitamin C) 500 mg tablet 500 mg PO DAILY melatonin 3 mg capsule 3 mg PO HS PRN acetylcysteine [NAC] 600 mg capsule 1,200 mg PO BID Fish Oil 100-160-1,000 mg capsule 1 cap PO DAILY Calcium 600 with Vitamin D3 600 mg-10 mcg (400 unit) tablet,chewable 1 tab PO DAILY Restasis MultiDose 0.05 % drops 1 drp OP Q12H Qty: 5.5 1RF One Daily Multi-Vit w-Mineral 4.5 mg iron tablet 1 tab PO DAILY Qty: 100 3RF atorvastatin 40 mg tablet 40 mg PO QPM Qty: 90 3RF ammonium lactate 12 % lotion 1 applic topical DAILY Qty: 400 2RF famotidine 20 mg tablet 20 mg PO DAILY Qty: 90 3RF (DME) Raised Toilet Seat See Rx Instructions .ROUTE .MEDSUPPLY Qty: 1 0RF Rx Instructions: As directed (DME) Bedside Commode See Rx Instructions .Route .MEDSUPPLY Qty: 1 0RF Label Comments: caregiver states it is coming today Rx Instructions: Utilize commode during initial recovery s/p hip replacement clopidogrel 75 mg tablet 75 mg PO DAILY Qty: 90 3RF loratadine 10 mg tablet 10 mg PO DAILY lorazepam 0.5 mg tablet 0.5 tab PO BID PRN clozapine 100 mg Tablet 100 mg PO HS Qty: 30 0RF bupropion HCl 100 mg Tablet Sustained-Release 12 Hr 100 mg PO QAM Qty: 30 0RF levothyroxine 88 mcg Tablet 88 mcg PO DAILY Qty: 30 0RF Discontinued acetaminophen [Tylenol Extra Strength] 500 mg tablet 500 mg PO Q6H PRN celecoxib 200 mg capsule See Rx Instructions .ROUTE .COMPLEX Qty: 60 0RF Dose Instruction: TAKE 1 CAPSULE BY MOUTH TWICE DAILY NEEDED FOR PAIN Rx Instructions: TAKE 1 CAPSULE BY MOUTH TWICE DAILY NEEDED FOR PAIN aspirin 81 mg Tablet,Delayed Release (Dr/Ec) 81 mg PO DAILY Qty: 30 0RF Label Comments: 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 You should try to take short walks a few times a day. You have no restrictions on movement or positioning, but do not try to force what you do. You will find some stiffness and weakness with hip flexion (lifting your knee). Do not try to strengthen this too early, continue to practice walking and stairs and this will come. - Outpatient physical therapy can be helpful to help return you to a normal gait and improve your flexibility and strength. This can start around 2 weeks. For some patients, it?s not necessary. Usually this is determined at the time of discharge or at the first post-operative visit. - You should wear the JORGE hose on both legs for 2 weeks. Dressing: Keep the surgical dressing in place for at least one week. After the first week it may be removed and replace with light gauze and tape or nothing. It may get wet after 3 days but avoid soaking the dressing. If it gets wet, just lightly pat dry. It is important to always keep some gauze between skin folds, especially when you are sitting. Spend some time with the wound exposed when you are lying flat as the incision does wrinkle onto itself. Medications: - You should take Tylenol and an anti-inflammatory Celebrex as your primary pain control medications. If the Celebrex is too expensive or not covered, please call the office for another alternative (Advil/Ibuprofen or Naproxen/Aleve). - You have been prescribed a stronger pain medication Oxycodone for breakthrough pain, take as needed as prescribed. - You have also been prescribed a stomach acid reduction agent Pantoprozole to help reduce stomach acid and reflux. - You will continue your plavix for DVT prevention. - If you have constipation you should take Colace or Miralax (both [id number]). It takes most people 3-4 days to have a bowel movement. Follow-up: 2 weeks If you have any acute concerns or questions, please do not hesitate to contact the office at [phone]. You may contact Dr. Barber with any questions after hours through the hospital at [phone] or on his cell phone at [phone]. Stand Alone Forms: Anesthesia Discharge Inst., Amina Segovia (U) Referrals: González Barber MD [ [facility] STAFF PHYSICIAN] - Equipment/Supplies: Walker Activity:: Activity as Tolerated Shower/Bathe:: Cover Diet:: As Tolerated Discharge Orders Discharge Orders: Discharge Order (Routine); Ordered 11/11/21 Ordered By: González Barber
[2021-11-11] MEDS: fentaNYL 100 MCG/2 ML VIAL IVP ×3 (10:10→10:39)
--- NOTE | 2021-11-11 10:54 | W.PM.OP ---
Date of service: 11/11/21 Time of Service: 09:05 Operative Note Operative Note DATE OF PROCEDURE: 11/11/21 PRE-OP DIAGNOSIS: Left Hip Osteoarthritis POST-OP DIAGNOSIS: same PROCEDURE: Left Anterior Total Hip Arthroplasty with Intraoperative Navigation SURGEON: González Barber STRAW HAT BRIM CUTTER OPERATOR: Blair Weber ANESTHESIA TYPE: Spinal Refer to Anesthesia Record ESTIMATED BLOOD LOSS: 150 PATHOLOGY: none sent TOURNIQUET TIME: 0 COMPLICATIONS: None Patient was transported to: PACU Patient's condition: stable Implants: 1. Depuy [place] Acetabular Component, 50mm 2. Depuy Acetabular Liner, [id number] 3. Depuy Corail Standard 125 degree Collared Femoral Stem, Size 14 4. Depuy Altrx Ceramic Femoral Head, Size 32+5mm Indications: I have seen Yaima in clinic for symptoms of hip arthritis, confirmed with radiographic findings. Yaima has exhausted nonoperative methods and was having significant limitations in daily function and desired better function and less pain. I discussed the technical details of a hip replacement. I explained the risks of the procedure to include, but not limited to, bleeding, infection, pain, stiffness, fracture, damage to nerves and vessels, damage to muscles and tendons, loosening, instability, leg length inequality, need for repeat procedure, blood clot and cardiopulmonary demise. Despite these risks, Yaima elected to proceed. Findings: There was significant signs of arthritis throughout the hip. Procedure Description: Yaima was greeted in the preoperative holding area where the correct side was identified and marked. The consent was reviewed with the patient and signed. The history and physical was updated. All questions were answered. Yaima was taken back to the operating room. A general anesthestic was then administered. The feet were wrapped with cast padding and Coban and then placed into the boot liners and then into the boots. Care was taken to protect the skin and make sure the heels were fully down and the boots were stable. The patient was then positioned onto the HANA table. Both legs were held in a neutral position. SCDs were applied. The patient was then slid down onto a peroneal post. Prophylactic antibiotics in the form of Cefazolin and Vancomycin were administered. 1g of Tranxemic Acid was given intravenously within 30 minutes of incision. The left leg was then prepped with Chloraprep and draped in a standard fashion. A second prep with Chloraprep was performed prior to placement of a shower-curtain type drape with Iodine impregnated skin protection. A timeout to confirm correct identity, side and site, procedure, allergies, anesthesia, and medical concerns was performed. An obliquely oriented incision was made starting lateral to the ASIS and running distal over the Tensor Fascia Geetha (TFL) muscle belly toward the fibular head, approximately 10cm. The skin and soft tissue was dissected sharply, through Amandeep?s fascia, and to the fascia of the TFL. With the fascia and superior border of the IT band identified, the fascia was incised with a new knife just above any perforators from the IT band. The TFL muscle belly was bluntly dissected away from the fascia and moved laterally. The fat between TFL and rectus was identified to ensure the dissection was not within the TFL. Blunt dissection created space between abductors and the capsule and retractor was placed over the lateral femoral neck. The fibers of the rectus femoris tendon were identified and these were freed from the anterior capsule. A second cobra retractor was placed around the medial femoral neck. The TFL was further retracted laterally to show the deep fascia. Careful dissection through this layer identified three main crossing vessels of the lateral femoral circumflex. These were cauterized in multiple locations and then cut without any noticeable bleeding. The TFL was further released bluntly from the deep fascia to expose anterior hip capsule and fat The Last orthopaedic retractor was then placed beneath the TFL and against sartorius and medial soft tissues to protect and retract the soft tissues. A T-capsulotomy was then performed starting at the superior lateral acetabulum and moving distally to the intertrochanteric ridge. These capsular flaps were tagged with a No. 1 Ethibond and elevated from within. The capsular flaps were released to the shoulder of the lateral neck and to the lesser trochanter to give excellent visualization of the proximal femur. A neck osteotomy was performed using an oscillating saw based on preoperative templates. This cut started in the shoulder and of the lateral neck and exited medially. The saw was at all times directed medially to avoid injury to the greater trochanter. Gross traction was applied to the leg and the osteotomy opened. The femoral head was removed with a corkscrew, making sure to protect the TFL on its exit. Traction was released after head removal. This was measured on the back table to determine the starting reamer size. Portions of the rectus obscuring visualization were minimally elevated off the superior acetabulum. An anterior retractor was placed over the anterior wall between capsule and labrum and attached to the Gripper retraction system. The femur was rotated to 90 degrees and medial capsule was fully released until the lesser trochanter was palpable and visible; the femur was returned to 30 degrees. A posterior retractor was placed similarly between capsule and labrum. This provided excellent visualization. The contents of the cotyloid fossa were removed with electrocautery and the labrum was removed with a knife. There was a notable floor osteophyte. There was significant chondromalacia of the superior acetabulum. Acetabular reaming began with a 46mm reamer. This first reaming was directed anterior to posterior and medial to get down to the true floor. This was inspected and reamed until the true floor was reached. The anterior retractor was then released and entry and exit was provided by traction on the capsular flaps. I then reamed sequentially up to a 50mm reamer where good fit was obtained. The larger reamers were oriented based on anatomical reference of the anterior and lateral yan to ensure proper abduction and anteversion. Positioning and size was confirmed with the fluoroscopy. A 50mm Depuy [place] acetabular component was selected. The acetabulum was reamed around the periphery with the selected acetabular size to prevent a rim fit. The deep tissues were irrigated. The acetabular component was then impacted in a position of about 40-45 degrees of abduction and 15-20 degrees of anteversion, using the patient?s anatomy as the ultimate landmark. Fluoroscopy was used to confirm this. There was excellent social service coordinator of the acetabular component and the inserting handle was removed. The acetabular liner, Depuy [id number] polyethylene liner, was inserted and lined up with the tines of the acetabular component. There was no soft tissue interposition. The liner was then impacted into position and confirmed to be well-seated. A portion of the evangelist-articular cocktail was then injected around the acetabulum into the capsule and periosteum. This cocktail consisted of 123mg of Ropivacaine, 0.25mg of Epinephrine, 0.04mg of Clonidine, and 15mg of Ketorolac, diluted to 50cc. The leg was rotated to 120 degrees. Any remaining medial capsule was released until the lesser trochanter was easily palpable. A retractor was placed medially. The lateral capsule was further released into the shoulder to allow access to the greater trochanter. A Deras retractor was placed over the greater trochanter which allowed the trochanter to flip in front of the capsule for excellent exposure. The leg was brought down into maximal extension and 20 degrees of adduction while ensuring there was no impingement on the acetabulum. Any remnant capsule within the trochanter was released. Piriformis and obturator externis were identified and protected. There was excellent access to the proximal femur. The lateral neck remnant was removed with a rongeur. A blunt canal probe was used to identify the canal and trajectory for later broaching. A box osteotome initiated the broach course. A small curved rasp and a curved curette were used to work laterally. Broaching then began with a size 8 Corail broach. This was inserted manually around the trochanter and into the canal before mallet blows. The broach was seated to a few millimeters below the cut level based on the neck cut and the preoperative template. Sequential broaching was continued with the SAFCell pneumatic broaching device until a tight fit was obtained with good rotational control of the femur. A trial standard 125 neck was inserted along with a +1 trial head. The leg was brought out of extension and adduction and then reduced with traction and internal rotation. The leg was stable anteriorly in a position of 30 degrees of extension and 90 degrees of external rotation. Fluoroscopy was used to ensure there was no fracture and the stem was seated well. Leg lengths were checked with an AP pelvis and pelvic reference points. Adnexus navigation system was used to confirm appropriate positioning and leg length and offset. This demonstrated slight shortening but too much offset, best balanced with the use of a short neck and +5 head. Once content with the desired offset and leg lengths, the leg was brought back into extension, external rotation and adduction. The periosteum and surrounding tissue was injected with remaining portion of the evangelist-articular cocktail. The proximal femur was irrigated as well as the deep tissues. The Depuy Corail short neck collared stem, size 14, was then manually inserted into the proximal femur making sure to control rotation. It was then malleted into position with light blows, giving breaks to allow bone expansion and decrease risk of fracture. The selected Depuy Altrx Ceramic Head, size 32+5mm, was then placed onto the clean and dry trunnion and secured with impaction onto the tapered fit. The leg was brought back out of extension and adduction and reduced with traction and internal rotation. Stability was confirmed with no shuck at 90 degrees of external rotation and 30 degrees of extension. No impingement through range of motion arc. Final x-ray images were obtained with fluoroscopy to confirm adequate positioning and no intraoperative fracture. The deep tissues were thoroughly irrigated with Surgiphor, betadine solution. This was allowed to sit in the wound for 3 minutes before being thoroughly irrigated out with normal saline. The capsule was then reapproximated with the previously placed Ethibond sutures. The TFL fascia was finally closed with a No. 2 Stratafix, barbed suture. Deep tissues were then reapproximated with 0 Vicryl and a running 2-0 Vicryl. The skin was closed with a running 4-0 Monocryl in a subcuticular fashion. This was reinforced with skin glue. A Mepilex silver dressing was applied. At the end of the case, all counts were correct. Yaima was transferred to the hospital bed without difficulty and suffering no apparent complication. Yaima has a good prognosis. Physical therapy will start today and without restrictions, weight-bearing as tolerated. Aspirin and Plavix will be used for DVT prophylaxis.
--- NOTE | 2021-11-11 11:31 | W.ANESPOSTOP ---
Postoperative Evaluation Date, Time and Location Date Performed: 11/11/21 Time Performed: 11:00 Patient Location: Day Surgery Unit Vital Signs Most Recent Imported Vital Signs: Most Recent Vital Signs Temp Pulse Resp BP Pulse Ox 36.4 C L 74 16 140/79 97 11/11/21 11:24 11/11/21 11:24 11/11/21 11:24 11/11/21 11:24 11/11/21 11:24 Pain Score Most Recent Pain Score: Most Recent Pain Score Pain Level 4 11/11/21 11:24 Assessment Mental Status: Awake (Alert & Oriented to Patient Baseline) Airway and Respiratory Function: Patent airway with normal (patient baseline) respiratory exam Cardiovascular Function: Hemodynamically Stable Hydration Status: Adequately Hydrated Nausea & Vomiting: No Nausea or Vomiting Pain: Pain is tolerable per patient Peripheral Nerve Block: Patient did not receive a nerve block
--- NOTE | 2021-11-11 14:00 | IN_ITS ---
Date of service: 11/11/21 Time of Service: 11:59 PT Notes Visit Reasons: L THR Physical Therapy Day Surgery Initial Evaluation Date: 11/11/2021 Referring Doctor: DOLORES Walter PT Orders: PT CONSULT: Eval/treat. S/p Ortho surgery. Precautions: WBAT on left LE with AD. Patient Profile/Admitting Diagnosis: Yaima is a 66-year-old female with Schizoaffective disorder and recent CVA in January 2021 currently on Plavix with diagnosis of degenerative joint disease of the left hip and status post left total hip arthroplasty on postoperative day 0. PMHX: All Active Problems?(Updated 06/12/21 @ 14:06 by Dillon Scott MD) Dry skin (Acute) Rash (Acute) Chronic diarrhea (Acute) Osteoarthritis of right hip (Acute) Schizoaffective disorder (Acute) CVA (cerebral vascular accident) (Chronic) Acute CVA (cerebrovascular accident) (Acute) DVT prophylaxis (Acute) Discharge planning issues (Acute) Schizoaffective disorder (Chronic) Hypomagnesemia (Acute) AMS (altered mental status) (Acute) Depression (Chronic) Hypokalemia (Acute) Lethargy (Acute) Thoracic aortic aneurysm (Acute) 4.[address] from 09/2020Hematuria (Acute) Degenerative joint disease of right hip (Chronic) Degenerative joint disease of left hip (Chronic) Left knee DJD (Chronic) Most recent injection: 05/27/2021; 08/18/20; 03/31/2020Hip pain, right (Acute) Bilateral knee pain (Acute) Leg swelling (Acute) Rash (Acute) Hydradenitis (Acute) in rt upper thigh regionAbnormal weight loss (Acute 06/21/12) Hyponatremia (Acute 03/24/94) MRSA (methicillin resistant staph aureus) culture positive (Acute 04/04/13) 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 Colonoscopy - [facility] (01/12/11) Colonoscopy - [facility] (02/14/17) Social History/Home Situation: Yaima lives alone in an apartment in [place] and have received mental and psychiatric counseling locally.? Sister lives close by and is supportive.? Sherita is a friend who will be supporting patient as she recovers from this surgery.? Equipment Owned/DME: [facility] Subjective: Agreeable to PT consult.? Reports pain in L hip of at least 5/10. Minimally moaned while negotiating level surface today but refused several offers of pain medication from PT and from Nurse Sebas. Needed to put on gloves to both hands before she used the walker despite having seen Sebas sanitize the walker prior to her use. Unsure of whteher she will have somebody with her tonight to help out. Objective: General Observation: Supine in bed.? Mental Status: Alert however had significant difficulty expressing self with responses mostly off-tangent. Difficulty with fully engaging client to focus on task, required frequent redirection to task. Pain: At least 5/10 in L hip with ambulation ROM: Right Lower Extremity: Hip flexion WFL. Hip abduction WFL. Knee flexion WFL. Ankle dorsiflexion WFL. Ankle plantarflexion WFL. Left Lower Extremity: Hip flexion WFL. Hip abduction WFL. Knee flexion WFL. Ankle dorsiflexion WFL. Ankle plantarflexion WFL. Strength: Right Lower Extremity: Hip flexors 5/5. Hip abductors 5/5. Knee flexors 5/5. Knee extensors 5/5. Ankle dorsiflexors 5/5. Ankle plantarflexors 5/5. Left Lower Extremity: Hip flexors 4/5. Hip abductors 4/5. Knee flexors 5/5. Knee extensors 4/5. Ankle dorsiflexors 5/5. Ankle plantarflexors 5/5. Bed Mobility/Transfers: Supine to sit standby assist Sit to supine standby assist Sit to stand contact guard assist x 2 Stand to sit? contact guard assist x 2 Bed to chair contact guard assist x 2 Gait: Instructed patient with level surface ambulation of 150 feet requiring minimal assist using front wheeled walker mostly because she tends to let go of walker frequently initially.? Moderate to maximal verbal cues provided for safe walker management. Unable to fully focus on task. Step-to gait pattern.? Balance: Static Sitting: Normal Dynamic Sitting: Normal Static Standing: Fair Dynamic Standing: Fair Special Tests: Mobility Limitations Standardized Measure [facility] 6 clicks Basic Mobility Inpatient Short Form: Raw Score: 16? CMS Score: 54% deficit? ? ? Informed Consent/Education:? Will update orthopedic surgeon about safety concerns regarding patient's going home alone without caregiver. Assessment: Confused. Impaired safety awareness/judgment. Yaima requires the use of a front-wheeled walker and the assiatance of one caregiver for all mobility ADL performance to reduce fall risk.? Patient presents with clinical signs and symptoms consistent with current/admitting diagnoses that have resulted to mobility limitations, gait instability, generalized weakness, and overall ADL decline as demonstrated by the following impairment level findings: 1.? Decreased strength to right left major muscle groups 2.? Impaired standing balance 3.? Impaired activity tolerance Impairments are contributing to the following functional limitations: 1.? Difficulty with ambulation 2.? Increased completion time for mobility ADL performance 3.? Increased risk for falls 4.? Difficulty with managing steps alone safely Patient is assessed as a [id number] moderate complexity based on the following: History: 65-year-old female with past medical history as indicated above Examination: Demonstrable impairment in strength, balance, and mobility level with underlying impairments and functional limitations as exhibited above as well as deficit score of 54% utilizing the [facility] Mobility Inpatient Short Form Presentation: Stable Decision Makin moderate complexity Goals: TBD depending on patient's disposition. May need to be re-assesed if goign home without caregiver. Plan of Care/Treatment Plan: TBD depending on patient's disposition. May need to be re-assesed if goign home without caregiver. DISCHARGE RECOMMENDATIONS: PT vs. MedSurg admission depending on patient's disposition. TREATMENT CODE/TIME: 82203 x 25 minutes, 79902 x 16 minutes beginning at 11:59 AM. Thank you for the opportunity to participate in the care of this patient. Mabel Jordan PT, DPT, CLT [facility] [place], [place]
== END 2021-11-11 14:21 | disposition home or self-care (01) ==
PROVIDERS: PCP Family Medicine; Visit Provider Student in an Organized Health Care Education/Training Program
PROC: (CPT 27130; principal; 2021-11-11 08:00)
DX: M16.12 Unilateral primary osteoarthritis, left hip (principal); Z86.73 Personal history of transient ischemic attack (TIA), and cerebral infarction without residual deficits; Z79.01 Long term (current) use of anticoagulants; F25.9 Schizoaffective disorder, unspecified; Z79.899 Other long term (current) drug therapy
CPT/HCPCS: 20985; 27130; C1776; 97162; 97530; 73501; J0690; J1100; J2405; J3010

== ENCOUNTER 2021-11-26 11:32 | Outpatient (CLI) | payer MEDICARE, SELFPAY ==
--- NOTE | 2021-11-26 11:00 | DI.RAD_ITS ---
Exam(s) XR HIP LT COMPLETE AP PELVIS EXAM: XR HIP LT COMPLETE AP PELVIS INDICATION: 1ST POST OP L FEI. COMPARISON: CR XR HIP RT COMPLETE AP PELVIS from 08/20/2021 XA XR HIP LT IN OR from 11/11/2021 TECHNIQUE: 2D digital imaging was performed. Two views. FINDINGS: There are bilateral hip prostheses. The alignment is unchanged. There are no abnormal surrounding b mary lucencies. DATA REPOSITORY: RADIATION DOSE DELIVERED:
== END 2021-11-26 11:33 | disposition home or self-care (01) ==
LOC: DIORS 11:33
PROVIDERS: PCP Family Medicine; Referring Provider Family Medicine; Visit Provider Student in an Organized Health Care Education/Training Program
DX: Z96.642 Presence of left artificial hip joint (principal); Z47.1 Aftercare following joint replacement surgery; M17.12 Unilateral primary osteoarthritis, left knee
CPT/HCPCS: 73502

== ENCOUNTER 2021-12-02 03:12 | Outpatient (CLI) | payer MEDICARE, SELFPAY ==
[2021-12-02 14:34] LABS: Abs Immature Grans 0.02 10^3/uL (0.0-0.06); Absolute Basophil Count 0.03 10^3/uL (0.0-0.2); Absolute Eosinophil Count 0.13 10^3/uL (0.0-0.7); Absolute Lymphocyte Count 1.68 10^3/uL (1.2-3.4); Absolute Monocyte Count 0.51 10^3/uL (0.1-0.8); Absolute Neutrophil Count 7.46 10^3/uL (1.2-6.7); Basophils % 0.3; Eosinophils % 1.3; HCT 35.7 % (36.0-46.0); HGB 11.2 g/dL (11.2-15.7); Immature Grans % 0.2; Lymphocytes % 17.1; MCH 30.3 pg (27.0-33.0); MCHC 31.4 % (32.0-36.0); MCV 97 fL (80-95); MPV 10.1 fL (8.0-11.0); Monocytes % 5.2; Neutrophils % 75.9; Platelet Count 290 10^3/uL (130-400); RDW 13.6 % (11.7-14.6); RDW-SD 48.4 fL; WBC 9.83 10^3/uL (4.4-10.8)
== END 2021-12-02 03:13 | disposition home or self-care (01) ==
PROVIDERS: PCP Family Medicine; Visit Provider Student in an Organized Health Care Education/Training Program
DX: F20.9 Schizophrenia, unspecified; Z79.899 Other long term (current) drug therapy
CPT/HCPCS: 36415; 85027; 85025

== ENCOUNTER → 2021-12-23 12:58 | Outpatient (BNVA) | payer MEDICARE, SELFPAY | PROVIDERS: PCP Family Medicine; Referring Provider Family Medicine; Visit Provider Physician Assistant | DX: Z47.1 Aftercare following joint replacement surgery (principal); Z96.642 Presence of left artificial hip joint; M17.12 Unilateral primary osteoarthritis, left knee ==

== ENCOUNTER 2022-01-01 01:58 | Outpatient (CLI) | payer MEDICARE, SELFPAY ==
[2022-01-01 11:18] LABS: Abs Immature Grans 0.02 10^3/uL (0.0-0.06); Absolute Basophil Count 0.06 10^3/uL (0.0-0.2); Absolute Eosinophil Count 0.22 10^3/uL (0.0-0.7); Absolute Lymphocyte Count 2.15 10^3/uL (1.2-3.4); Absolute Monocyte Count 0.71 10^3/uL (0.1-0.8); Basophils % 0.5; Eosinophils % 1.9; HCT 37.9 % (36.0-46.0); HGB 12.4 g/dL (11.2-15.7); Immature Grans % 0.2; Lymphocytes % 18.2; MCH 30.7 pg (27.0-33.0); MCHC 32.7 % (32.0-36.0); MCV 94 fL (80-95); Neutrophils % 73.2; Platelet Count 291 10^3/uL (130-400); RBC 4.04 10^6/uL (3.93-5.22); RDW 14.1 % (11.7-14.6); RDW-SD 48.5 fL; WBC 11.82 10^3/uL (4.4-10.8)
[2022-01-01 11:21] LABS: Absolute Neutrophil Count 8.65 10^3/uL (1.2-6.7)
== END 2022-01-01 01:59 | disposition home or self-care (01) ==
LOC: LBO 01:58
PROVIDERS: PCP Family Medicine; Visit Provider Internal Medicine Infectious Disease
DX: F20.9 Schizophrenia, unspecified (principal); Z79.899 Other long term (current) drug therapy
CPT/HCPCS: 36415; 85025

== ENCOUNTER 2022-01-27 02:56 | Outpatient (CLI) | payer MEDICARE, SELFPAY ==
[2022-01-27 13:57] LABS: HCT 39.2 % (36.0-46.0); HGB 12.6 g/dL (11.2-15.7); MCH 30.8 pg (27.0-33.0); MCHC 32.1 % (32.0-36.0); MCV 96 fL (80-95); MPV 9.9 fL (8.0-11.0); Platelet Count 278 10^3/uL (130-400); RBC 4.09 10^6/uL (3.93-5.22); RDW 13.2 % (11.7-14.6); RDW-SD 46.5 fL
== END 2022-01-27 02:57 | disposition home or self-care (01) ==
LOC: LBO 02:56
PROVIDERS: Student in an Organized Health Care Education/Training Program; PCP Family Medicine; Visit Provider Psychiatry & Neurology Psychiatry
DX: M25.552 Pain in left hip (principal); M16.12 Unilateral primary osteoarthritis, left hip; Z01.818 Encounter for other preprocedural examination; Z01.812 Encounter for preprocedural laboratory examination
CPT/HCPCS: 36415; 85027

== ENCOUNTER 2022-02-08 12:34 | Outpatient (CLI) | payer MEDICARE, SELFPAY ==
[2022-02-08 10:24] LABS: Abs Immature Grans 0.03 10^3/uL (0.0-0.06); Absolute Basophil Count 0.06 10^3/uL (0.0-0.2); Absolute Eosinophil Count 0.29 10^3/uL (0.0-0.7); Absolute Lymphocyte Count 1.89 10^3/uL (1.2-3.4); Absolute Monocyte Count 0.64 10^3/uL (0.1-0.8); Absolute Neutrophil Count 6.48 10^3/uL (1.2-6.7); Basophils % 0.6; Eosinophils % 3.1; HCT 39.3 % (36.0-46.0); HGB 12.7 g/dL (11.2-15.7); Immature Grans % 0.3; Lymphocytes % 20.1; MCH 31.2 pg (27.0-33.0); MCHC 32.3 % (32.0-36.0); MCV 97 fL (80-95); MPV 9.8 fL (8.0-11.0); Monocytes % 6.8; Neutrophils % 69.1; Platelet Count 253 10^3/uL (130-400); RBC 4.07 10^6/uL (3.93-5.22); RDW 13.3 % (11.7-14.6); RDW-SD 47.2 fL; WBC 9.39 10^3/uL (4.4-10.8)
== END 2022-02-08 12:35 | disposition home or self-care (01) ==
PROVIDERS: PCP Family Medicine; Visit Provider Psychiatry & Neurology Psychiatry
DX: F20.89 Other schizophrenia (principal); Z79.899 Other long term (current) drug therapy
CPT/HCPCS: 36415; 85025

== ENCOUNTER → 2022-02-15 14:13 | Outpatient (BNVA) | payer MEDICARE, SELFPAY | PROVIDERS: PCP Family Medicine; Referring Provider Family Medicine; Visit Provider Student in an Organized Health Care Education/Training Program | DX: Z47.1 Aftercare following joint replacement surgery (principal); Z96.642 Presence of left artificial hip joint ==

== ENCOUNTER 2022-03-03 03:15 | Outpatient (CLI) | payer MEDICARE, SELFPAY ==
[2022-03-03 14:11] LABS: Abs Immature Grans 0.02 10^3/uL (0.0-0.06); Absolute Basophil Count 0.06 10^3/uL (0.0-0.2); Absolute Eosinophil Count 0.32 10^3/uL (0.0-0.7); Absolute Monocyte Count 0.47 10^3/uL (0.1-0.8); Absolute Neutrophil Count 5.28 10^3/uL (1.2-6.7); Basophils % 0.7; Eosinophils % 3.7; HCT 38.9 % (36.0-46.0); HGB 12.7 g/dL (11.2-15.7); Immature Grans % 0.2; Lymphocytes % 29.7; MCH 31.2 pg (27.0-33.0); MCHC 32.6 % (32.0-36.0); MCV 96 fL (80-95); MPV 10.4 fL (8.0-11.0); Monocytes % 5.4; Neutrophils % 60.3; Platelet Count 262 10^3/uL (130-400); RBC 4.07 10^6/uL (3.93-5.22); RDW 12.6 % (11.7-14.6); RDW-SD 44.6 fL; WBC 8.75 10^3/uL (4.4-10.8)
== END 2022-03-03 03:16 | disposition home or self-care (01) ==
LOC: LBO 03:15
PROVIDERS: PCP Family Medicine; Visit Provider Psychiatry & Neurology Psychiatry
DX: F20.9 Schizophrenia, unspecified (principal); Z79.899 Other long term (current) drug therapy
CPT/HCPCS: 36415; 85025

== ENCOUNTER 2022-03-31 15:34 | Outpatient (CLI) | payer MEDICARE, SELFPAY ==
[2022-03-31 14:40] LABS: Abs Immature Grans 0.03 10^3/uL (0.0-0.06); Absolute Basophil Count 0.07 10^3/uL (0.0-0.2); Absolute Lymphocyte Count 1.74 10^3/uL (1.2-3.4); Absolute Monocyte Count 0.61 10^3/uL (0.1-0.8); Absolute Neutrophil Count 7.41 10^3/uL (1.2-6.7); Basophils % 0.7; HCT 39.2 % (36.0-46.0); HGB 12.9 g/dL (11.2-15.7); Immature Grans % 0.3; Lymphocytes % 17.5; MCH 30.7 pg (27.0-33.0); MCHC 32.9 % (32.0-36.0); MCV 93 fL (80-95); Monocytes % 6.1; Neutrophils % 74.4; Platelet Count 272 10^3/uL (130-400); RDW 12.5 % (11.7-14.6); RDW-SD 42.9 fL; WBC 9.96 10^3/uL (4.4-10.8)
== END 2022-03-31 15:35 | disposition home or self-care (01) ==
LOC: LBO 15:35
PROVIDERS: PCP Family Medicine; Visit Provider Psychiatry & Neurology Psychiatry
DX: E03.9 Hypothyroidism, unspecified (principal); F20.9 Schizophrenia, unspecified; Z79.899 Other long term (current) drug therapy
CPT/HCPCS: 36415; 84443; 85025

== ENCOUNTER 2022-04-05 12:28 | Emergency (ER) | payer MEDICARE, SELFPAY ==
[2022-04-05 12:32] VITALS: BP 159/100; PULSE 97; RESP 18; TEMP 36.9; O2SAT 96
[2022-04-05 13:42] LABS: Abs Immature Grans 0.03 10^3/uL (0.0-0.06); Absolute Basophil Count 0.02 10^3/uL (0.0-0.2); Absolute Eosinophil Count 0.01 10^3/uL (0.0-0.7); Absolute Lymphocyte Count 0.92 10^3/uL (1.2-3.4); Absolute Monocyte Count 0.52 10^3/uL (0.1-0.8); Absolute Neutrophil Count 8.18 10^3/uL (1.2-6.7); Basophils % 0.2; Eosinophils % 0.1; Immature Grans % 0.3; Lymphocytes % 9.5; MCH 30.6 pg (27.0-33.0); MCHC 33.3 % (32.0-36.0); MCV 92 fL (80-95); MPV 9.8 fL (8.0-11.0); Monocytes % 5.4; Neutrophils % 84.5; Platelet Count 222 10^3/uL (130-400); RBC 3.92 10^6/uL (3.93-5.22); RDW 12.4 % (11.7-14.6); RDW-SD 41.9 fL; WBC 9.68 10^3/uL (4.4-10.8)
--- NOTE | 2022-04-05 14:00 | DI.MRI_ITS ---
Exam(s) MR BRAIN WO EXAM: MR BRAIN WO CLINICAL HISTORY: broken speech, incomprehensible, ? prior cva TECHNIQUE: Multiplanar multisequence MRI of the brain was performed. COMPARISON: MR MR BRAIN WO from 02/18/[address] BRAIN NECK CTA from 02/19/2021 MR MR BRAIN W from 02/19/2021 FINDINGS: CEREBRAL PARENCHYMA: There is no evidence of intracranial hemorrhage, mass effect, or shift of midline structures. There are no extra-axial fluid collections. Ventricles are not enlarged or shifted. There is no significant focal signal abnormality in the cerebellar hemispheres nor within the merlyn, m idbrain, and thalami. There is a small nonspecific 2 millimeter size FLAIR bright focus of signal abnormality in the left p eriventricular white matter, being more evident than on the prior study but not associated with restr icted diffusion The previously described abnormality in the pulvinar of the left thalamus to is less evident on the p resent study. PITUITARY GLAND: No mass nor parasellar abnormality. No obvious abnormality in the cavernous sinuses. FLOW VOIDS: The expected flow void are noted. No evidence of obvious aneurysm nor obvious vascular ma lformation. PARANASAL SINUSES: Post inflammatory retention cyst in the left maxillary sinus again noted, not asso ciated with a fluid level therein. Other paranasal sinuses are clear. ORBITS: No obvious findings. IMPRESSION: No significant acute intracranial findings on this noninfused MRI scan of the brain. The previously present findings in the left thalamus are less evident on the present study. DATA REPOSITORY:
--- NOTE | 2022-04-05 14:00 | ED.GENADUL_ITS ---
Discharge Plan Discharge Details Chief Complaint: PsychEval Primary Care Provider: Dillon Scott ED Provider: Rob Kamara Home Meds and New Rx's Prescriptions: No Action ascorbate calcium (vitamin C) 500 mg tablet 500 mg PO DAILY melatonin 3 mg capsule 3 mg PO HS PRN acetylcysteine [NAC] 600 mg capsule 1,200 mg PO BID Fish Oil 100-160-1,000 mg capsule 1 cap PO DAILY Calcium 600 with Vitamin D3 600 mg-10 mcg (400 unit) tablet,chewable 1 tab PO DAILY One Daily Multi-Vit w-Mineral 4.5 mg iron tablet 1 tab PO DAILY Qty: 100 3RF famotidine 20 mg tablet 20 mg PO DAILY Qty: 90 3RF (DME) Raised Toilet Seat See Rx Instructions .ROUTE .MEDSUPPLY Qty: 1 0RF Rx Instructions: As directed (DME) Bedside Commode See Rx Instructions .Route .MEDSUPPLY Qty: 1 0RF Label Comments: caregiver states it is coming today Rx Instructions: Utilize commode during initial recovery s/p hip replacement clopidogrel 75 mg tablet 75 mg PO DAILY Qty: 90 3RF loratadine 10 mg tablet 10 mg PO DAILY Qty: 90 4RF levothyroxine 88 mcg tablet 88 mcg PO DAILY Qty: 90 3RF atorvastatin 40 mg tablet 40 mg PO QPM Qty: 90 3RF lorazepam 0.5 mg tablet 0.5 tab PO BID PRN celecoxib 200 mg capsule 200 mg PO BID Qty: 60 0RF acetaminophen 500 mg tablet 1,000 mg PO TID Qty: 90 3RF clozapine 100 mg Tablet 100 mg PO HS Qty: 30 0RF bupropion HCl 100 mg Tablet Sustained-Release 12 Hr 100 mg PO QAM Qty: 30 0RF Medical Decision Making 1410??66-year-old female history of schizoaffective disorder, questionable history of schizoaffective disorder, presents with altered mental status with friend. Friend is concerned that she may not have taken her medication over the past couple days. Patient has broken speech that is incomprehensible. She does seem to engage in conversation and is not clear to me that she fully understands from saying. I did reach out and speak with Dr. Rubalcava, on- call neurologist, discussed ED presentation and course. Dr. Rubalcava had seen her in the past on the inpatient setting with similar presentation. She does recommend MRI of the brain today to determine if CVA is present. Considered metabolic etiology: Labs reviewed and no significant electrolyte abnormalities. TSH normal. Ethyl alcohol normal. Urinalysis and UDS pending. Will attempt to obtain up-to-date medication list. We have reached out to [facility] human services to perform medication reconciliation. Sign Out Yes HPI General Mode of arrival: ambulatory . Date/Time Provider Initiated Documentation: 04/05/22 12:41 . Limitations to Documentation: altered mental status . HPI Narrative: 66-year-old female with multiple medical problems in the past including schizoaffective disorder, CVA, here with altered mental status. History and review of systems limited secondary to altered mental status. Patient's friend notes that she last engaged with the patient a few days ago and patient was noted to be normal at that time. Today she is found to have difficulty speaking and seems confused. Related Data Home Medications Medication Instructions Recorded Confirmed bupropion HCl 100 mg tablet,12 hr 100 mg PO QAM #30 tabs 04/07/21 04/05/22 sustained-release clozapine 100 mg tablet 100 mg PO HS #30 tabs 04/07/21 04/05/22 multivitamin with minerals-ferrous 1 tab PO DAILY #100 tabs 04/08/21 04/05/22 sulfate 4.5 mg iron tablet (One Daily Multivitamins with Minerals) famotidine 20 mg tablet 20 mg PO DAILY #90 tabs 06/19/21 04/05/22 acetylcysteine 600 mg capsule (NAC) 1,200 mg PO BID 07/15/21 04/05/22 ascorbate calcium (vitamin C) 500 500 mg PO DAILY 07/15/21 04/05/22 mg tablet calcium carbonate 600 mg-vitamin 1 tab PO DAILY 07/15/21 04/05/22 D3 10 mcg (400 unit) chewable tablet (Calcium 600 with Vitamin D3) melatonin 3 mg capsule 3 mg PO HS PRN 07/15/21 04/05/22 omega 8-pea-bsw-fish oil 100 1 cap PO DAILY 07/15/21 04/05/22 mg-160 mg-1,000 mg capsule (Fish Oil) Bedside Commode #1 ea 08/03/21 03/31/22 Raised Toilet Seat #1 ea 08/03/21 03/31/22 clopidogrel 75 mg tablet 75 mg PO DAILY #90 tabs 10/10/21 04/05/22 lorazepam 0.5 mg tablet 0.5 tab PO BID PRN 11/10/21 04/05/22 acetaminophen 500 mg tablet 1,000 mg PO TID #90 tabs 11/11/21 04/05/22 celecoxib 200 mg capsule 200 mg PO BID #60 caps 11/11/21 04/05/22 loratadine 10 mg tablet 10 mg PO DAILY #90 tabs 11/30/21 04/05/22 levothyroxine 88 mcg tablet 88 mcg PO DAILY #90 tabs 12/29/21 04/05/22 atorvastatin 40 mg tablet 40 mg PO QPM #90 tabs 03/24/22 04/05/22 Previous Rx's Medication Instructions Recorded bupropion HCl 100 mg tablet,12 hr 100 mg PO QAM #30 tabs 04/07/21 sustained-release clozapine 100 mg tablet 100 mg PO HS #30 tabs 04/07/21 multivitamin with minerals-ferrous 1 tab PO DAILY #100 tabs 04/08/21 sulfate 4.5 mg iron tablet (One Daily Multivitamins with Minerals) famotidine 20 mg tablet 20 mg PO DAILY #90 tabs 06/19/21 Bedside Commode #1 ea 08/03/21 Raised Toilet Seat #1 ea 08/03/21 clopidogrel 75 mg tablet 75 mg PO DAILY #90 tabs 10/10/21 acetaminophen 500 mg tablet 1,000 mg PO TID #90 tabs 11/11/21 celecoxib 200 mg capsule 200 mg PO BID #60 caps 11/11/21 loratadine 10 mg tablet 10 mg PO DAILY #90 tabs 11/30/21 levothyroxine 88 mcg tablet 88 mcg PO DAILY #90 tabs 12/29/21 atorvastatin 40 mg tablet 40 mg PO QPM #90 tabs 03/24/22 Allergies Allergy/AdvReac Type Severity Reaction Status Date / Time chlorpheniramine Allergy Verified 03/31/22 13:27 erythromycin base Allergy Verified 03/31/22 13:27 Penicillins Allergy Verified 03/31/22 13:27 General Stated Complaint: PsychEval JESSICA: 2 Review of Systems Unobtainable due to mental condition PFSH All Active Problems History of total left hip replacement (Acute 11/11/21) Schizoaffective disorder (Acute) Chronic diarrhea (Acute) Diarrhea (Chronic 05/15/12) h/o collagenous colitis 2008 on colonoscopy Edentulous (Acute 10/17/13) 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 MRSA (methicillin resistant staph aureus) culture positive (Acute 04/04/13) Hyponatremia (Acute 03/24/94) Abnormal weight loss (Acute 06/21/12) Hydradenitis (Acute) in rt upper thigh region Rash (Acute) Leg swelling (Acute) Bilateral knee pain (Acute) Left knee DJD (Chronic) Most recent injection: 05/27/2021; 08/18/20; 03/31/2020 Hematuria (Acute) Thoracic aortic aneurysm (Acute) 4.[address] from 09/[address] from 10/2021 Lethargy (Acute) AMS (altered mental status) (Acute) Depression (Chronic) Hypokalemia (Acute) Hypomagnesemia (Acute) Schizoaffective disorder (Chronic) Discharge planning issues (Acute) DVT prophylaxis (Acute) Acute CVA (cerebrovascular accident) (Acute) CVA (cerebral vascular accident) (Chronic) Rash (Acute) Dry skin (Acute) Status post right hip replacement (Acute 08/05/21) Medical History Folliculitis GERD (gastroesophageal reflux disease) Hx MRSA infection Hx of malignant neoplasm of vagina Hypothyroidism Osteoarthritis Urge urinary incontinence Surgical History Colonoscopy - MAC (01/12/11) Colonoscopy - MAC (02/14/17) History of hip replacement Social History Smoking/Tobacco Use Status: Current-Occasional Tobacco Type: cigarettes Smoking risk assessment performed?: Yes Alcohol Intake: current Alcohol Intake frequency: holidays/special occasions only Drug use: Never Substance use type: does not use Current gender identity: female Do you feel safe at home: Yes Do you feel safe in your relationship?: Yes Exam Const General: cooperative and no acute distress HENMT Head: normocephalic and atraumatic Mouth: moist mucous membranes Eyes Conjunctivae: normal conjunctivae Sclera: normal sclerae Neck Neck: trachea midline Resp Auscultation: clear to auscultation bilaterally, no rales, no rhonchi and no wheezes Cardio Rate: regular rate and not tachycardic Rhythm: regular rhythm GI Palpation: soft, not firm, no guarding, no masses, not rigid and nontender Skin General skin exam: no rashes or lesions noted Neuro General: patient alert, patient awake and tone normal Cognition: abnormal cognition Speech: other (broken speech ) Extrem General: no edema Psych Appearance: grossly normal Course Vital Signs Vital signs: Vital Signs Temperature 36.9 C 04/05/22 12:32 Pulse 97 H 04/05/22 12:32 Respiratory Rate 18 04/05/22 12:32 Blood Pressure 159/100 H 04/05/22 12:32 Pulse Oximetry 96 04/05/22 12:32 Temperature 36.9 C 04/05/22 12:32 Temperature Source Temporal Artery Scan 04/05/22 12:32 Pulse 97 H 04/05/22 12:32 Respiratory Rate 18 04/05/22 12:32 Respiratory Effort 04/05/22 13:27 Blood Pressure 159/100 H 04/05/22 12:32 Blood Pressure Position Supine 04/05/22 12:32 Pulse Oximetry 96 04/05/22 12:32 Oxygen Delivery Method Room Air 04/05/22 12:32 Oxygen Flow Rate 0 04/05/22 12:32 Lab/Test Results Lab/Test Results: Laboratory Tests Range/Units 04/05/22 12:30 WBC (4.4-10.8) 10^3/uL 9.68 RBC (3.93-5.22) 10^6/uL 3.92 L Hgb (11.2-15.7) g/dL 12.0 Hct (36.0-46.0) % 36.0 MCV (80-95) fL 92 MCH (27.0-33.0) pg 30.6 MCHC (32.0-36.0) % 33.3 RDW (11.7-14.6) % 12.4 Plt Count (130-400) 10^3/uL 222 MPV (8.0-11.0) fL 9.8 Immature Gran % 0.3 Neutrophils % 84.5 Lymphocytes % 9.5 Monocytes % 5.4 Eosinophils % 0.1 Basophils % 0.2 Nucleated RBC % (0.0-0.3) % 0.0 Absolute Neutrophils (1.2-6.7) 10^3/uL 8.18 H Absolute Lymphocytes (1.2-3.4) 10^3/uL 0.92 L Absolute Monocytes (0.1-0.8) 10^3/uL 0.52 Absolute Eosinophils (0.0-0.7) 10^3/uL 0.01 Absolute Basophils (0.0-0.2) 10^3/uL 0.02
[2022-04-05 14:04] LABS: Salicylate 4.2 mg/dL (<2.8)
[2022-04-05 14:09] LABS: ALT 30 U/L (14-59); AST 25 U/L (15-37); Albumin 3.5 g/dL (3.4-5.0); Alkaline Phosphatase 138 U/L (46-116); Anion Gap 9.4 mmol/L (3-11); BUN 21 mg/dL (7-18); Bilirubin, Total 0.4 mg/dL (0.2-1.0); CO2 24.6 mmol/L (21.0-32.0); CREATININE 0.7 mg/dL (0.55-1.02); Calcium 9.6 mg/dL (8.5-10.1); Chloride 96 mmol/L (98-107); Estimated GFR 94.73 (mL/min/1.73m2); Glucose 123 mg/dL (74-106); Potassium 3.7 mmol/L (3.5-5.1); Sodium 130 mmol/L (136-145); TSH (W/Ref FT4) 0.81 uIU/mL (0.36-3.74); Total Protein 6.6 g/dL (6.4-8.2)
[2022-04-05 14:10] LABS: ETHANOL BLOOD < 3.0 mg/dL (<10)
[2022-04-05 14:11] LABS: Acetaminophen 2 ug/mL (10-30)
[2022-04-05 15:44] LABS: Bilirubin Negative (Negative); Blood Negative (Negative); Clarity Clear (Clear); Glucose Negative (Negative); Ketones Negative (Negative); Leukocyte Esterase Negative (Negative); Nitrite Negative (Negative); Specific Gravity >= 1.030 (1.005-1.025); Urobilinogen 0.2 EU/dL (Up TO 0.2); pH 6.5 (5-8)
[2022-04-05 15:50] LABS: *AMPHETAMINES SCREEN URINE Negative (Negative); *BARBITURATES SCREEN URINE Negative (Negative); *BENZODIAZEPINES SCREEN URINE Negative (Negative); Cannabinoids THC Negative (Negative); Cocaine Screen,Urine Negative (Negative); METHADONE URINE SCREEN Negative (Negative); OPIATES URINE SCREEN Negative (Negative)
[2022-04-05 15:52] LABS: Tricyclic Antidepressants Negative (Negative)
[2022-04-05 15:56] LABS: Bacteria Few HPF (Negative); C & S Indicated? No/Sq. Contamination; Casts Negative LPF (Negative); Crystals Negative HPF (Negative); Epithelial Cells Moderate HPF (Negative); Mucus Heavy (Negative); WBC 0-2 HPF (0-5)
--- NOTE | 2022-04-05 20:21 | W.EDPROG ---
Date of service: 04/05/22 Time of Service: 16:30 Medical Decision Making 1630 --please see Dr. Rob Kamara's note for initial presentation, exam and plan. Case endorsed to follow-up on MRI brain results and if negative, reassess and plan for mental health reevaluation. 1800 --MRI brain negative for acute findings. Patient reassessed after clozapine and no acute change. She is continuing to try to come out of the room and appears slightly more agitated. Screening labs reviewed. Sodium 130. TSH within normal limits. Urinalysis negative for infection. UDS, salicylates and acetaminophen negative. Patient is medically cleared. Will call [facility] for evaluation. 1999 --Niki with [facility] attempted to evaluate at bedside and difficult to obtain history or do an exam. Patient did state to her that she would like to go home. There is a concern for her safety issue and concern for psychosis so plan will be for with possible plan for inpatient psychiatic hospitalization. 2300 --Case endorsed to Dr. Hutchinson to continue to monitor overnight while awaiting likely re-evaluation by mental health in the am to see if there is any acute change and likely plan for second certificate tomorrow. Patient's regular medications ordered. Unable to order her dose of clozapine to resume tomorrow as this needs to be ordered per pharmacy and requires testing for monitoring. Medical Records Medical records reviewed: Yes I reviewed the patient's medical records. Imaging Data Radiologic Study: Radiologist's impression: MR BRAIN WO CLINICAL HISTORY:? broken speech, incomprehensible, ? prior cva TECHNIQUE:? Multiplanar multisequence MRI of the brain was performed. COMPARISON:? MR MR BRAIN WO from 02/18/[address] BRAIN ? NECK CTA from 02/19/2021 MR MR BRAIN W from 02/19/2021 FINDINGS: CEREBRAL PARENCHYMA: There is no evidence of intracranial hemorrhage, mass effect, or shift of midline structures.? There are no extra-axial fluid collections.? Ventricles are not enlarged or shifted. There is no significant focal signal abnormality in the cerebellar hemispheres nor within the merlyn, midbrain, and thalami. There is a small nonspecific 2 millimeter size FLAIR bright focus of signal abnormality in the left periventricular white matter, being more evident than on the prior study but not associated with restricted diffusion The previously described abnormality in the pulvinar of the left thalamus to is less evident on the present study. PITUITARY GLAND: No mass nor parasellar abnormality. No obvious abnormality in the cavernous sinuses. FLOW VOIDS: The expected flow void are noted. No evidence of obvious aneurysm nor obvious vascular malformation. PARANASAL SINUSES: Post inflammatory retention cyst in the left maxillary sinus again noted, not associated with a fluid level therein.? Other paranasal sinuses are clear.? ORBITS: No obvious findings. IMPRESSION: No significant acute intracranial findings on this noninfused MRI scan of the brain. The previously present findings in the left thalamus are less evident on the present study. Sign Out Yes Sign Out Sign Out Data: Sign Out Comment: followup mri brain, reassess pt after clozipine. Consult [facility] when medically cleared. Other prescribed meds will need to be ordered as appropriate. Attempt to consult psychiatrist Dr. Reina tomorrow. Last updated by Rob Kamara MD at 04/05/22 16:29 Sign Out Comment: MRI brain negative for acute findings. Pt medically cleared and evaluated by [facility] and EE completed due to concern for lack of self care and concern for safety at home as she lives alone and does not demonstrate appropriate insight into her poor self care. Will need her dose of clozapine ordered tomorrow per pharmacy as only pharmacy can order this and requires screening labs. Last updated by Katia Jones DO at 04/05/22 22:49 Sign Out Comment: Patient EE'ed. Pending placement. No interventions needed throughout the evening Last updated by Nhan Hutchinson DO at 04/06/22 06:26 Sign Out Comment: no issues during the day, having second cert eval now Last updated by Young Delgado MD at 04/06/22 18:19 Sign Out Comment: Patient stable throughout the night, second certification completed. No interventions needed. Awaiting placement. Last updated by Nhan Hutchinson DO at 04/07/22 06:08 Sign Out Comment: here involuntary for psychosis, awaiting placement, no issues during shirt Last updated by Young Delgado MD at 04/07/22 07:55 Discharge Plan Disposition Condition: Stable Discharge Details Chief Complaint: PsychEval Clinical Impression: Psychosis Primary Care Provider: Dillon Scott ED Provider: Young Delgado Home Meds and New Rx's Prescriptions: No Action ascorbate calcium (vitamin C) 500 mg tablet 500 mg PO DAILY melatonin 3 mg capsule 3 mg PO HS PRN acetylcysteine [NAC] 600 mg capsule 1,200 mg PO BID Fish Oil 100-160-1,000 mg capsule 1 cap PO DAILY Calcium 600 with Vitamin D3 600 mg-10 mcg (400 unit) tablet,chewable 1 tab PO DAILY One Daily Multi-Vit w-Mineral 4.5 mg iron tablet 1 tab PO DAILY Qty: 100 3RF famotidine 20 mg tablet 20 mg PO DAILY Qty: 90 3RF (DME) Raised Toilet Seat See Rx Instructions .ROUTE .MEDSUPPLY Qty: 1 0RF Rx Instructions: As directed (DME) Bedside Commode See Rx Instructions .Route .MEDSUPPLY Qty: 1 0RF Label Comments: caregiver states it is coming today Rx Instructions: Utilize commode during initial recovery s/p hip replacement clopidogrel 75 mg tablet 75 mg PO DAILY Qty: 90 3RF loratadine 10 mg tablet 10 mg PO DAILY Qty: 90 4RF levothyroxine 88 mcg tablet 88 mcg PO DAILY Qty: 90 3RF atorvastatin 40 mg tablet 40 mg PO QPM Qty: 90 3RF lorazepam 0.5 mg tablet 0.5 tab PO BID PRN celecoxib 200 mg capsule 200 mg PO BID Qty: 60 0RF acetaminophen 500 mg tablet 1,000 mg PO TID Qty: 90 3RF clozapine 100 mg Tablet 100 mg PO HS Qty: 30 0RF bupropion HCl 100 mg Tablet Sustained-Release 12 Hr 100 mg PO QAM Qty: 30 0RF
--- NOTE | 2022-04-05 22:32 | PDOC.MHCN ---
Date of service: 04/05/22 Time of Service: 18:57 Mental Health Emergency Note Release [facility] release signed:: No Reason for Visit Client presented to [facility] ED with imparied speech and appeared to be responding to internal stimuli. Client was assessed in person by this typewriter ribbon winder. In the last 2 weeks has the pt presented for ES prior to today?: No Client Information Client is: Adult Outpatient Current Treatment Team if applicable First care fast food team member: Name: Israel Reina Role: Psychiatrist Contact Info: [phone] Non Suicidal Self Injury Current: No History: No Safety Risk/Harm to Self or Others Current Ideation to Harm Self or Others: No Risk: Does risk to harm exist?: No Risk: High Risk Duty to warn indicated: No Asssessment/Mental Status Appearance: Disheveled and Poor hygiene Attitude: Guarded Behavior: Poor impulse control, Gait disturbances and Repetitive movements Speech: Slow, Incoherent and Slurred Affect: Normal and Cogruent with mood Mood: Stressed and Irritable Thought process: Racing, Tangential and Poverty of content Hallucinations: yes, (Appears to be responding to both auditory and visual hallucinations) Visual and Auditory Delusions: No Attention: Poor concentration Perception: Derealization Orientation: Disoriented in Time, Place, Person and Situation Memory: Impaired in: Immediate and Recent Insight: Poor Judgement: Poor Additional Issues: Assaultive/Threatening Behavior: No Medical Concerns: No Client engaged in active self harm w/weapon: No Threatening to run away: Yes Child reported abuse/neglect: No Voluntarily presenting for services: No Domestic violence is a concern: No Extreme Psychosis or extreme behavior is present: Yes Impression Due to clients altered mental status and current presentation an EE was completed for clinet. Plan/Disposition Recommended Disposition: Hospitalization (EE written) No. Plan: Client will remain at [facility] ED on EE status. Dr. Jones will fill out physician cert and exibit b and fax to [facility]. Person reported agreement to plan: No Reports/communication Outcome discussed with: ED/Personnel (Verbal passover with [facility] ED attending provider Dr. Jones. )
--- NOTE | 2022-04-06 09:52 | ED.PROG_ITS ---
Date of service: 04/06/22 Time of Service: 09:52 Medical Decision Making Medical Records Medical records narrative: pt stable, no new issues, still pending second cert for psychosis, will continue to monitor Sign Out Yes Sign Out Sign Out Data: Sign Out Comment: followup mri brain, reassess pt after clozipine. Consult [facility] when medically cleared. Other prescribed meds will need to be ordered as appropriate. Attempt to consult psychiatrist Dr. Reina tomorrow. Last updated by Rob Kamara MD at 04/05/22 16:29 Sign Out Comment: MRI brain negative for acute findings. Pt medically cleared and evaluated by [facility] and EE completed due to concern for lack of self care and concern for safety at home as she lives alone and does not demonstrate appropriate insight into her poor self care. Will need her dose of clozapine ordered tomorrow per pharmacy as only pharmacy can order this and requires scre ening labs. Last updated by Katia Jones DO at 04/05/22 22:49 Sign Out Comment: Patient EE'ed. Pending placement. No interventions needed throughout the evening Last updated by Nhan Hutchinson DO at 04/06/22 06:26 Discharge Plan Disposition Condition: Stable Discharge Details Chief Complaint: PsychEval Clinical Impression: Psychosis Primary Care Provider: Dillon Scott ED Provider: Young Delgado Home Meds and New Rx's Prescriptions: No Action ascorbate calcium (vitamin C) 500 mg tablet 500 mg PO DAILY melatonin 3 mg capsule 3 mg PO HS PRN acetylcysteine [NAC] 600 mg capsule 1,200 mg PO BID Fish Oil 100-160-1,000 mg capsule 1 cap PO DAILY Calcium 600 with Vitamin D3 600 mg-10 mcg (400 unit) tablet,chewable 1 tab PO DAILY One Daily Multi-Vit w-Mineral 4.5 mg iron tablet 1 tab PO DAILY Qty: 100 3RF famotidine 20 mg tablet 20 mg PO DAILY Qty: 90 3RF (DME) Raised Toilet Seat See Rx Instructions .ROUTE .MEDSUPPLY Qty: 1 0RF Rx Instructions: As directed (DME) Bedside Commode See Rx Instructions .Route .MEDSUPPLY Qty: 1 0RF Label Comments: caregiver states it is coming today Rx Instructions: Utilize commode during initial recovery s/p hip replacement clopidogrel 75 mg tablet 75 mg PO DAILY Qty: 90 3RF loratadine 10 mg tablet 10 mg PO DAILY Qty: 90 4RF levothyroxine 88 mcg tablet 88 mcg PO DAILY Qty: 90 3RF atorvastatin 40 mg tablet 40 mg PO QPM Qty: 90 3RF lorazepam 0.5 mg tablet 0.5 tab PO BID PRN celecoxib 200 mg capsule 200 mg PO BID Qty: 60 0RF acetaminophen 500 mg tablet 1,000 mg PO TID Qty: 90 3RF clozapine 100 mg Tablet 100 mg PO HS Qty: 30 0RF bupropion HCl 100 mg Tablet Sustained-Release 12 Hr 100 mg PO QAM Qty: 30 0RF
--- NOTE | 2022-04-06 10:15 | CMSP_ITS ---
- If Service Date Differs Date of service: 04/06/22 Time of Service: 10:15 Care Management Safety Plan Status: Involuntary - Reason for Wait Reason for Wait: Inpatient Admission INVOLUNTARY FOR INPATIENT PSYCHIATRIC STABILIZATION. Safety plan has been established to meet the needs of the patient, and consideration of the care team, to adhere to patient goals, identify restrictions based on behavioral status, address nutrition, and determine allowed personal belongings, tools for hygiene and personal care. Determine level of activity including ambulation, level of supervision, visitors, and determine privileges based on behaviors and level of engagement by pt. A huddle is held at 10:10 am with Maria T, nursing mill platform supervisor, CEFERINO Fiore, and RITESH Donald, in attendance. SAFETY PLAN: 1. Will remain on SI/HI precautions. In Paper Clothes 2. Will remain in room under direct supervision of one-on-one staff at all times provided by CPSO, FEMI, RESEARCH PHYSIOLOGIST program aide group work. 3. May have paper cups, plates, finger foods as well as a cardboard spoon to eat meals. 4. Follow [facility] Management of the Admitted Behavioral Health Patient policy. 5. Shower permitted with escort and at RN discretion. 6. No personal belongings 7. Visitors: Per [facility] visitor policy and at RN discretion. 8. Activities: soft cart items, music tablet, television if available, and other activities at RN discretion. 9. Bathroom privileges with escort in the ED, available in room without limitation on M/S. 10. Phone: [facility] use [facility] phone for incoming/outgoing phone calls at RN discretion. 11. Due to INVOLUNTARY status, patient is being held at [facility] by the Department of Mental Health ([facility]) until 2nd certification by [facility] Psychiatrist can be performed (within 24 hours). Staff will provide de-escalation support (CPI) as needed. If patient wishes to leave [facility], staff will contact [facility] Crisis Screener ([phone]) and On-Call Electrical Construction Project Manager ([phone]) as soon as possible. In the event of elopement, notify [place] Police ([phone]). Patient is currently involuntarily at [facility]. [facility] Frontline Waxing Machine Operator Helper will continue seeking placement. Please contact the Microfilm Clerk Electrical Construction Project Manager ( [phone]) for any needed changes to Safety Plan. Safety plan has been provided to interdepartmental care team. Patient will be transported by [facility] at time of discharge.
--- NOTE | 2022-04-06 10:15 | PDOC.CMSAFED ---
- If Service Date Differs Date of service: 04/06/22 Time of Service: 10:15 Care Management Safety Plan Status: Involuntary - Reason for Wait Reason for Wait: Inpatient Admission INVOLUNTARY FOR INPATIENT PSYCHIATRIC STABILIZATION. Safety plan has been established to meet the needs of the patient, and consideration of the care team, to adhere to patient goals, identify restrictions based on behavioral status, address nutrition, and determine allowed personal belongings, tools for hygiene and personal care. Determine level of activity including ambulation, level of supervision, visitors, and determine privileges based on behaviors and level of engagement by pt. A huddle is held at 10:10 am with Maria T, nursing supervisor cd area, CEFERINO Fiore, and RITESH Donald, in attendance. SAFETY PLAN: 1. Will remain on SI/HI precautions. In Paper Clothes 2. Will remain in room under direct supervision of one-on-one staff at all times provided by CPSO, FEMI, OSHA INSPECTOR director smb sales. 3. May have paper cups, plates, finger foods as well as a cardboard spoon to eat meals. 4. Follow [facility] Management of the Admitted Behavioral Health Patient policy. 5. Shower permitted with escort and at RN discretion. 6. No personal belongings 7. Visitors: Per [facility] visitor policy and at RN discretion. 8. Activities: soft cart items, music tablet, television if available, and other activities at RN discretion. 9. Bathroom privileges with escort in the ED, available in room without limitation on M/S. 10. Phone: may use [facility] phone for incoming/outgoing phone calls at RN discretion. 11. Due to INVOLUNTARY status, patient is being held at [facility] by the Department of Mental Health ([facility]) until 2nd certification by [facility] Psychiatrist can be performed (within 24 hours). Staff will provide de-escalation support (CPI) as needed. If patient wishes to leave [facility], staff will contact [facility] Crisis Screener ([phone]) and On-Call Painter Touch Up ([phone]) as soon as possible. In the event of elopement, notify [place] Police ([phone]). Patient is currently involuntarily at [facility]. [facility] Frontline Quality Assurance Supervisor Trim will continue seeking placement. Please contact the Engine Cowling Installer Painter Touch Up ([phone]) for any needed changes to Safety Plan. Safety plan has been provided to interdepartmental care team. Patient will be transported by adult caregiver at time of discharge.
[2022-04-06] MEDS: Levothyroxine 88 MCG TAB PO (11:24)
[2022-04-06] MEDS: Calcium Carbonate 1.5 GM TAB PO (11:24)
[2022-04-06] MEDS: buPROPion-CR 100 MG TABCR PO (11:24)
[2022-04-06] MEDS: Loratidine 10 MG TAB PO (11:25)
[2022-04-06] MEDS: Acetylcysteine 600 MG CAP 1200 MG PO ×2 (11:25→19:24)
[2022-04-06] MEDS: Clopidogrel 75 MG TAB PO (11:25)
[2022-04-06] MEDS: Famotidine 20 MG TAB PO (11:25)
[2022-04-06] MEDS: Cholecalciferol (Vitamin D3) 400 UNIT TAB PO (11:25)
[2022-04-06 11:43] VITALS: BP 160/88; PULSE 74; TEMP 36.6; O2SAT 95
--- NOTE | 2022-04-06 12:10 | PDOC.MHPN2 ---
Date of service: 04/06/22 Time of Service: 12:10 Mental Health Emergency Note Release [facility] release signed:: Yes Reason for Visit Client arrived on 04.05.2022 via a friend who was concerned that the client was not taking her psychiatric medications as prescribed and needed additional support. This re-assessment is taking place face to face as this was what was best for the client. In the last 2 weeks has the pt presented for ES prior to today?: Unknown Client Information Client is: Adult Outpatient Well Housed: Yes Non Suicidal Self Injury Current: No History: No Safety Risk/Harm to Self or Others Current Ideation to Harm Self or Others: No Risk: Does risk to harm exist?: yes. Access to means: Yes. Types of Means: Medication. Counseling provided: No Risk: High Risk Duty to warn indicated: No Asssessment/Mental Status Appearance: Disheveled Attitude: Other (perceverating ) Behavior: Agitated Speech: Soft, Incoherent and Other (repetative ) Affect: Flat Mood: Stressed Thought process: Flight of ideas and Poverty of content Hallucinations: No Delusions: No Attention: Inattention Perception: Derealization Orientation: Disoriented in Time, Place, Person and Situation Memory: Impaired in: Immediate, Recent and Remote Insight: Poor Judgement: Poor Neurovegetative Symptoms Sleep: Increase Substance Use: Do you use nicotine?: No Have you used substances in the last 7 days?: No Additional Issues: Assaultive/Threatening Behavior: No Medical Concerns: No Client engaged in active self harm w/weapon: No Threatening to run away: Yes Child reported abuse/neglect: No Voluntarily presenting for services: No Domestic violence is a concern: No Extreme Psychosis or extreme behavior is present: Yes Impression Client is a 66-year-old female history of schizoaffective disorder. She presented to [facility] on 04.05.2022 with altered mental status with her friend. The friend shared concerns that the client may not have taking her medications over the past couple days. Patient had broken speech that was incomprehensible. On 04.06.2022 the client was slightly clearer in her words however, could not formulate sentences and was perseverating on I shouldn't have come rest and I came yesterday and day before and day before. She was not able to answer questions that were asked of her and although there were some concerns that she may be experiencing another possible stroke she was medically cleared from that. In addition this clinician has a long history with the client as this clinician used to be her case manger and assessed her back in January as a client related support and her presentation is completely different as back in January this clinician could see that she had the information but was struggling to verbalize what was going on. This time she presented as confused and disoriented which suggest more of a mental health crisis rather than a medical one. Plan/Disposition Recommended Disposition: Hospitalization facilities contacted. Plan: Client will remain at [facility] pending her second certification that should take place tonight. Client will be re-assessed daily by [facility] to plan for appropriate level of treatment. Person reported agreement to plan: No Facilities contacted if Applicable [facility] Not accepted, No bed available [facility] Not accepted, Only accepting in house referrals [facility] Not accepted, Only accepting in house referrals, [facility] Not accepted, No bed available Reports/communication Outcome discussed with: ED/Personnel
[2022-04-06 16:05] LABS: Source Nasal/Nares
--- NOTE | 2022-04-06 16:19 | CMPROGNOTE_ITS ---
- If Service Date Differs Date of service: 04/06/22 Time of Service: 16:19 Care Management Progress Note S/O: Yaima presents in the ED on 04/05/22 due to altered mental status and incomprehensible speech. A medical work-up is done and aYima is medically cleared. She is subsequently assessed by [facility] and is placed on EE status as she is asking to go home and there is concern she may be experiencing psychosis. When CM comes to meet with her today, Yaima is pleasant but confused. She repea ts questions asked of her over and over again and seems unable to comprehend the questions. Yaima has an extensive psychiatric history and per [facility], has a diagnosis of schizoaffective disorder. She receives services through the [facility] at [facility]. CM will continue to follow. A: Yaima remains at [facility] awaiting an involuntary psychiatric placement. P: Referrals are faxed to [facility], [facility], [facility], and [facility] for review. Yaima will remain at [facility] on involuntary status and will be reassessed twice daily by [facility] until placement can be secured for her. CM will continue to follow. - MH Services (Omit if N/A) Current MH Services: [facility] - Status Status: Involuntary - Reason for Wait Reason for Wait: Inpatient Admission
--- NOTE | 2022-04-06 16:19 | PDOC.ERCMPRO ---
- If Service Date Differs Date of service: 04/06/22 Time of Service: 16:19 Care Management Progress Note S/O: Yaima presents in the ED on 04/05/22 due to altered mental status and incomprehensible speech. A medical work-up is done and Yaima is medically cleared. She is subsequently assessed by [facility] and is placed on EE status as she is asking to go home and there is concern she may be experiencing psychosis. When CM comes to meet with her today, Yaima is pleasant but confused. She repeats questions asked of her over and over again and seems unable to comprehend the questions. Yaima has an extensive psychiatric history and per [facility], has a diagnosis of schizoaffective disorder. She receives services through the [facility] Program at [facility]. CM will continue to follow. A: Yaima remains at [facility] awaiting an involuntary psychiatric placement. P: Referrals are faxed to [facility], [facility], [facility], and [facility] for review. Yaima will remain at [facility] on involuntary status and will be reassessed twice daily by [facility] until placement can be secured for her. CM will continue to follow. - MH Services (Omit if N/A) Current MH Services: [facility] - Status Status: Involuntary - Reason for Wait Reason for Wait: Inpatient Admission
[2022-04-06 16:42] LABS: COVID-19 PCR Negative (Negative)
[2022-04-06] MEDS: Atorvastatin 40 MG TAB PO (19:24)
[2022-04-06] MEDS: LORazepam 0.5 MG TAB PO (19:25)
[2022-04-07] MEDS: LORazepam 0.5 MG TAB PO ×2 (03:28→14:45)
[2022-04-07] MEDS: Levothyroxine 88 MCG TAB PO (07:19)
--- NOTE | 2022-04-07 07:53 | ED.PROG_ITS ---
Date of service: 04/07/22 Time of Service: 07:54 Medical Decision Making no reported issues overnight, patient resting in bed with no new complaints, will continue to monitor until placement is found Sign Out Yes Sign Out Sign Out Data: Sign Out Comment: followup mri brain, reassess pt after clozipine. Consult [facility] when medically cleared. Other prescribed meds will need to be ordered as appropriate. Attempt to consult psychiatrist Dr. Reina tomorrow. Last updated by Rob Kamara MD at 04/05/22 16:29 Sign Out Comment: MRI brain negative for acute findings. Pt medically cleared and evaluated by [facility] and EE completed due to concern for lack of self care and concern for safety at home as she lives alone and does not demonstrate appropriate insight into her poor self care. Will need her dose of clozapine ordered tomorrow per pharmacy as only pharmacy can order this and requires screening labs. Last updated by Katia Jones DO at 04/05/22 22:49 Sign Out Comment: Patient EE'ed. Pending placement. No interventions needed throughout the evening Last updated by Nhan Hutchinson DO at 04/06/22 06:26 Sign Out Comment: no issues during the day, having second cert eval now Last updated by Young Delgado MD at 04/06/22 18:19 Sign Out Comment: Patient stable throughout the night, second certification completed. No interventions needed. Awaiting placement. Last updated by Nhan Hutchinson DO at 04/07/22 06:08 Discharge Plan Disposition Condition: Stable Discharge Details Chief Complaint: PsychEval Clinical Impression: Psychosis Primary Care Provider: Dillon Scott ED Provider: Young Delgado Home Meds and New Rx's Prescriptions: No Action ascorbate calcium (vitamin C) 500 mg tablet 500 mg PO DAILY melatonin 3 mg capsule 3 mg PO HS PRN acetylcysteine [NAC] 600 mg capsule 1,200 mg PO BID Fish Oil 100-160-1,000 mg capsule 1 cap PO DAILY Calcium 600 with Vitamin D3 600 mg-10 mcg (400 unit) tablet,chewable 1 tab PO DAILY One Daily Multi-Vit w-Mineral 4.5 mg iron tablet 1 tab PO DAILY Qty: 100 3RF famotidine 20 mg tablet 20 mg PO DAILY Qty: 90 3RF (DME) Raised Toilet Seat See Rx Instructions .ROUTE .MEDSUPPLY Qty: 1 0RF Rx Instructions: As directed (DME) Bedside Commode See Rx Instructions .Route .MEDSUPPLY Qty: 1 0RF Label Comments: caregiver states it is coming today Rx Instructions: Utilize commode during initial recovery s/p hip replacement clopidogrel 75 mg tablet 75 mg PO DAILY Qty: 90 3RF loratadine 10 mg tablet 10 mg PO DAILY Qty: 90 4RF levothyroxine 88 mcg tablet 88 mcg PO DAILY Qty: 90 3RF atorvastatin 40 mg tablet 40 mg PO QPM Qty: 90 3RF lorazepam 0.5 mg tablet 0.5 tab PO BID PRN celecoxib 200 mg capsule 200 mg PO BID Qty: 60 0RF acetaminophen 500 mg tablet 1,000 mg PO TID Qty: 90 3RF clozapine 100 mg Tablet 100 mg PO HS Qty: 30 0RF bupropion HCl 100 mg Tablet Sustained-Release 12 Hr 100 mg PO QAM Qty: 30 0RF
--- NOTE | 2022-04-07 09:11 | NUR.NOTE ---
Nursing Note:Dm from the Dept of called to inform us that they are not filing the EE on the pt due to a lack of proof that she is a danger to herself or other. [facility] has been notified by the Dept of and they will be here at some point today to work out a plan with the patient.
[2022-04-07] MEDS: Famotidine 20 MG TAB PO (10:21)
[2022-04-07] MEDS: Calcium Carbonate 1.5 GM TAB PO (10:21)
[2022-04-07] MEDS: buPROPion-CR 100 MG TABCR PO (10:21)
[2022-04-07] MEDS: Acetylcysteine 600 MG CAP 1200 MG PO (10:21)
[2022-04-07] MEDS: Cholecalciferol (Vitamin D3) 400 UNIT TAB PO (10:21)
[2022-04-07] MEDS: Clopidogrel 75 MG TAB PO (10:22)
[2022-04-07] MEDS: Loratidine 10 MG TAB PO (10:22)
--- NOTE | 2022-04-07 10:58 | NUR.NOTE ---
Nursing Note: DOUGLAS FROM [facility] IN TO SEE PT. PT TOOK MORNING MEDS FROM THIS NURSE W/O DIFFICULTY, CONTINUE TO MONITOR.
[2022-04-07 12:56] VITALS: BP 147/80; PULSE 68; RESP 18; O2SAT 96
--- NOTE | 2022-04-07 13:24 | MHPN_ITS ---
Date of service: 04/07/22 Time of Service: 13:24 PHQ-9 Over the last 2 weeks, how often have you been bothered by any of the following problems? 1. Little interest or pleasure in doing things: nearly every day 2. Feeling down, depressed, or hopeless: more than half the days 3. Trouble falling or staying asleep, or sleeping too much: not at all 4. Feeling tired or having little energy: more than half the days 5. Poor appetite or overeating: more than half the days 6. Feeling bad about yourself - or that you are a failure or have let yourself and your family down: more than half the days 7. Trouble concentrating on things, such as reading the newspaper or watching television: more than half the days 8. Moving or speaking so slowly that other people could have noticed? - Or the opposite - being so fidgety or restless that you have been moving around a lot more than usual: more than half the days 9. Thoughts that you would be better off or of hurting yourself in some way: not at all Total score: 15 If you checked off any problems, how difficult have these problems made it for you to do your work, take care of things at home, or get along with other people?: somewhat difficult Source: Developed by Drs. Jose Salazar, Lucie Maddox, Beau Romo and colleagues, with an educational demetrio from [employer]. Suicide Severity Rate CSSRS Have you wished you were or wished you could go to sleep and not wake up?: No Have you actually had any thoughts of killing yourself?: No CSSRS3 Have you ever done anything, started to do anything or prepared to do anything to end your life?: No Screening Score Total Score: 0 Screening: Negative Mental Health Emergency Note Release [facility] release signed:: Yes Reason for Visit Client arrived on 04.05.2022 via a friend who was concerned that the client was not taking her psychiatric medications as prescribed and needed additional support. This re-assessment is taking place face to face as this was what was best for the client. Client's EE did not pass through legal so she is no longer on EE status. In the last 2 weeks has the pt presented for ES prior to today?: Unknown Client Information Client is: Adult Outpatient Well Housed: Yes Non Suicidal Self Injury Current: No History: No Safety Risk/Harm to Self or Others Current Ideation to Harm Self or Others: No Risk: Does risk to harm exist?: No Risk: N/A Duty to warn indicated: No Asssessment/Mental Status Appearance: Disheveled Attitude: Cooperative Behavior: Agitated (Wanting to go home. ) Speech: Normal and Hesitant Affect: Normal and Cogruent with mood Mood: Happy and Anxious Thought process: Blocking and Goal directed Hallucinations: No Delusions: No Attention: Unremarkable Perception: Not impaired Orientation: Fully orientated Memory: Intact Insight: Fair Judgement: Fair Neurovegetative Symptoms Sleep: Decrease Appetitie: Decrease Interests: Decrease Energy: Decrease Libido: Not applicable Substance Use: Do you use nicotine?: Yes Have you used substances in the last 7 days?: No Additional Issues: Assaultive/Threatening Behavior: No Medical Concerns: No Client engaged in active self harm w/weapon: No Threatening to run away: No Child reported abuse/neglect: No Voluntarily presenting for services: No Domestic violence is a concern: No Extreme Psychosis or extreme behavior is present: No Impression Client is a 66-year-old female history of schizoaffective disorder. She presented to [facility] on 04.05.2022 with altered mental status with her friend. The friend shared concerns that the client may not have taking her medications over the past couple days. Patient had broken speech that was incomprehensible. Today this clinician met with the client face to face and she presented with clearer sentences and more insight and judgement. She was oriented x's 4 which was a huge improvement from her assessment at 4:30pm last night. At this time, [facility] legal did not accept her EE and she does not meet criteria to write another. Client will be discharged home with F outreach from her manager of case management on 04.08.2022 and a phone check in on 04.09.2022. If the manager of case management has any concerns she will outreach to [facility] ES prior to sending her to [facility] unless it is a medical emergency. Resources Reosurces reviewed and given:: [facility] and Other Plan/Disposition Recommended Disposition: Community resources. Plan: No additional plan. Person reported agreement to plan: Yes Reports/communication Outcome discussed with: ED/Personnel
--- NOTE | 2022-04-07 14:46 | NUR.NOTE ---
Nursing Note: PT CONT. W/AGITATION, STATES TO THIS MAGNETIC RESONANCE TECHNOLOGIST DOUGLAS TOLD ME YOUR EYES ARE TO FAR APART AND THAT IS THE PROBLEM. PT DID AGREE TO TAKE PRN ATIVAN AT THIS TIME, JORJE ADAMS NOTIFIED OF THIS CONVERSATION AND OF PT UNAWARENESS OF SITUATION AND CONFUSION.
--- NOTE | 2022-04-07 16:15 | CMPROGNOTE_ITS ---
- If Service Date Differs Date of service: 04/07/22 Time of Service: 16:15 Care Management Progress Note DISPOSITION: Per ED provider, [facility] legal has refused to file the EE paperwork with the court. Jazmine, [facility] Crisis Screener, advises she does not have a reason to involuntarily hold patient. Yaima is subsequently discharged home as she is refusing a voluntary placement. She will follow up with [facility] as agreed. Patient is transported home via [facility].
--- NOTE | 2022-04-07 16:15 | PDOC.ERCMPRO ---
- If Service Date Differs Date of service: 04/07/22 Time of Service: 16:15 Care Management Progress Note DISPOSITION: Per ED provider, [facility] legal has refused to file the EE paperwork with the court. Jazmine, [facility] Crisis Screener, advises she does not have a reason to involuntarily hold patient. Yaima is subsequently discharged home as she is refusing a voluntary placement. She will follow up with [facility] as agreed. Patient is transported home via [facility].
== END 2022-04-07 15:36 | disposition home or self-care (01) ==
PROVIDERS: Physician Assistant; Student in an Organized Health Care Education/Training Program; Emergency Provider Emergency Medicine; PCP Family Medicine
DX: F29 Unspecified psychosis not due to a substance or known physiological condition (principal); F25.9 Schizoaffective disorder, unspecified; Z20.822 Contact with and (suspected) exposure to COVID-19; Z86.73 Personal history of transient ischemic attack (TIA), and cerebral infarction without residual deficits; Z79.899 Other long term (current) drug therapy
CPT/HCPCS: 80053; 80307; 87635; 99285; 70551; 80320; 80329; 81003; 81015; 84443; 85025; J3490

== ENCOUNTER 2022-04-28 04:58 | Outpatient (CLI) | payer MEDICARE, SELFPAY ==
[2022-04-28 14:36] LABS: Abs Immature Grans 0.02 10^3/uL (0.0-0.06); Absolute Basophil Count 0.07 10^3/uL (0.0-0.2); Absolute Eosinophil Count 0.21 10^3/uL (0.0-0.7); Absolute Lymphocyte Count 2.18 10^3/uL (1.2-3.4); Absolute Monocyte Count 0.62 10^3/uL (0.1-0.8); Absolute Neutrophil Count 5.51 10^3/uL (1.2-6.7); Basophils % 0.8; Eosinophils % 2.4; HCT 39.5 % (36.0-46.0); HGB 12.9 g/dL (11.2-15.7); Immature Grans % 0.2; Lymphocytes % 25.3; MCH 30.7 pg (27.0-33.0); MCHC 32.7 % (32.0-36.0); MCV 94 fL (80-95); MPV 9.9 fL (8.0-11.0); Monocytes % 7.2; Neutrophils % 64.1; Platelet Count 315 10^3/uL (130-400); RDW-SD 44.5 fL; WBC 8.61 10^3/uL (4.4-10.8)
== END 2022-04-28 04:59 | disposition home or self-care (01) ==
LOC: LBO 04:58
PROVIDERS: PCP Family Medicine; Visit Provider Psychiatry & Neurology Psychiatry
DX: F25.9 Schizoaffective disorder, unspecified (principal); Z79.899 Other long term (current) drug therapy
CPT/HCPCS: 36415; 85025

== ENCOUNTER 2022-05-26 04:01 | Outpatient (CLI) | payer MEDICARE, SELFPAY ==
[2022-05-26 14:12] LABS: Abs Immature Grans 0.04 10^3/uL (0.0-0.06); Absolute Basophil Count 0.07 10^3/uL (0.0-0.2); Absolute Eosinophil Count 0.11 10^3/uL (0.0-0.7); Absolute Monocyte Count 0.59 10^3/uL (0.1-0.8); Absolute Neutrophil Count 8.57 10^3/uL (1.2-6.7); Basophils % 0.6; HCT 41.8 % (36.0-46.0); HGB 13.7 g/dL (11.2-15.7); Immature Grans % 0.4; Lymphocytes % 15.6; MCH 31.4 pg (27.0-33.0); MCHC 32.8 % (32.0-36.0); MCV 96 fL (80-95); MPV 9.6 fL (8.0-11.0); Monocytes % 5.3; Neutrophils % 77.1; Platelet Count 272 10^3/uL (130-400); RBC 4.37 10^6/uL (3.93-5.22); RDW-SD 46.5 fL; WBC 11.12 10^3/uL (4.4-10.8)
[2022-05-26 14:13] LABS: Absolute Lymphocyte Count 1.73 10^3/uL (1.2-3.4)
== END 2022-05-26 04:02 | disposition home or self-care (01) ==
LOC: LBO 04:02
PROVIDERS: PCP Family Medicine; Visit Provider Psychiatry & Neurology Psychiatry
DX: F20.9 Schizophrenia, unspecified (principal); Z79.899 Other long term (current) drug therapy
CPT/HCPCS: 36415; 85025

== ENCOUNTER 2022-06-23 03:00 | Outpatient (CLI) | payer MEDICARE, SELFPAY ==
[2022-06-23 14:11] LABS: Abs Immature Grans 0.04 10^3/uL (0.0-0.06); Absolute Basophil Count 0.07 10^3/uL (0.0-0.2); Absolute Eosinophil Count 0.12 10^3/uL (0.0-0.7); Absolute Lymphocyte Count 1.89 10^3/uL (1.2-3.4); Absolute Monocyte Count 0.69 10^3/uL (0.1-0.8); Basophils % 0.6; HCT 41.1 % (36.0-46.0); HGB 13.4 g/dL (11.2-15.7); Immature Grans % 0.3; Lymphocytes % 16.3; MCH 30.7 pg (27.0-33.0); MCHC 32.6 % (32.0-36.0); MCV 94 fL (80-95); MPV 9.5 fL (8.0-11.0); Monocytes % 5.9; Neutrophils % 75.9; Platelet Count 276 10^3/uL (130-400); RBC 4.37 10^6/uL (3.93-5.22); RDW 12.5 % (11.7-14.6); RDW-SD 43.9 fL; WBC 11.62 10^3/uL (4.4-10.8)
[2022-06-23 14:15] LABS: Absolute Neutrophil Count 8.82 10^3/uL (1.2-6.7)
== END 2022-06-23 03:01 | disposition home or self-care (01) ==
PROVIDERS: PCP Family Medicine; Visit Provider Psychiatry & Neurology Psychiatry
DX: F20.9 Schizophrenia, unspecified (principal); Z79.899 Other long term (current) drug therapy
CPT/HCPCS: 36415; 85025

== ENCOUNTER 2022-07-21 02:07 | Outpatient (CLI) | payer MEDICARE, SELFPAY ==
[2022-07-21 14:48] LABS: Abs Immature Grans 0.03 10^3/uL (0.0-0.06); Absolute Basophil Count 0.05 10^3/uL (0.0-0.2); Absolute Eosinophil Count 0.19 10^3/uL (0.0-0.7); Absolute Lymphocyte Count 1.78 10^3/uL (1.2-3.4); Absolute Monocyte Count 0.59 10^3/uL (0.1-0.8); Absolute Neutrophil Count 6.85 10^3/uL (1.2-6.7); Basophils % 0.5; HCT 40.6 % (36.0-46.0); Immature Grans % 0.3; Lymphocytes % 18.8; MCH 30.2 pg (27.0-33.0); MCV 94 fL (80-95); Monocytes % 6.2; Neutrophils % 72.2; Platelet Count 287 10^3/uL (130-400); RDW 12.6 % (11.7-14.6); RDW-SD 43.5 fL; WBC 9.49 10^3/uL (4.4-10.8)
== END 2022-07-21 02:08 | disposition home or self-care (01) ==
LOC: LBO 02:07
PROVIDERS: PCP Family Medicine; Visit Provider Psychiatry & Neurology Psychiatry
DX: F20.9 Schizophrenia, unspecified (principal); Z79.899 Other long term (current) drug therapy
CPT/HCPCS: 36415; 85025

== ENCOUNTER 2022-08-18 02:51 | Outpatient (CLI) | payer MEDICARE, SELFPAY ==
[2022-08-18 14:39] LABS: Abs Immature Grans 0.02 10^3/uL (0.0-0.06); Absolute Basophil Count 0.07 10^3/uL (0.0-0.2); Absolute Eosinophil Count 0.17 10^3/uL (0.0-0.7); Absolute Lymphocyte Count 1.68 10^3/uL (1.2-3.4); Absolute Monocyte Count 0.48 10^3/uL (0.1-0.8); Absolute Neutrophil Count 5.67 10^3/uL (1.2-6.7); Basophils % 0.9; Eosinophils % 2.1; HCT 38.4 % (36.0-46.0); HGB 12.8 g/dL (11.2-15.7); Immature Grans % 0.2; Lymphocytes % 20.8; MCH 31.2 pg (27.0-33.0); MCHC 33.3 % (32.0-36.0); MCV 94 fL (80-95); Monocytes % 5.9; Neutrophils % 70.1; Platelet Count 271 10^3/uL (130-400); RDW 12.7 % (11.7-14.6); RDW-SD 43.9 fL; WBC 8.09 10^3/uL (4.4-10.8)
== END 2022-08-18 02:52 | disposition home or self-care (01) ==
LOC: LBO 02:51
PROVIDERS: PCP Family Medicine; Visit Provider Psychiatry & Neurology Psychiatry
DX: F20.9 Schizophrenia, unspecified (principal); Z79.899 Other long term (current) drug therapy
CPT/HCPCS: 36415; 85025

== ENCOUNTER 2022-08-30 15:07 | Outpatient (CLI) | payer MEDICARE, SELFPAY ==
--- NOTE | 2022-08-30 14:15 | DI.RAD_ITS ---
Exam(s) XR KNEE LT 4V AP,LAT,CHARLI,PAT EXAM: XR KNEE LT 4V AP,LAT,CHARLI,PAT CLINICAL HISTORY: eval L knee pain. TECHNIQUE: 2D digital imaging was performed. Three views. COMPARISON: CR XR KNEE 4 VIEW LEFT from 04/06/2018 CR XR KNEE 4 VIEW RIGHT from 04/06/2018 FINDINGS: BONES: No acute fracture is present. No bony destructive lesion is seen. JOINTS: There is obliteration of the lateral femoral tibial joint space, with a [id number] appearan ce and prominent periarticular spurring. Bony densities are again noted adjacent to the lateral joint space. There is severe valgus angulation with compensatory widening of the medial femoral tibial nichole nt space. There is prominent spurring at the patellofemoral joint. There is a small joint effusion. SOFT TISSUE: Normal. 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 DATA REPOSITORY: RADIATION DOSE DELIVERED:
== END 2022-08-30 15:08 | disposition home or self-care (01) ==
LOC: DIORS 15:07
PROVIDERS: PCP Family Medicine; Referring Provider Family Medicine; Visit Provider Student in an Organized Health Care Education/Training Program
DX: M17.12 Unilateral primary osteoarthritis, left knee
CPT/HCPCS: 20610; 73564; J1040

== ENCOUNTER 2022-09-15 05:19 | Outpatient (CLI) | payer MEDICARE, SELFPAY ==
[2022-09-15 14:40] LABS: Abs Immature Grans 0.03 10^3/uL (0.0-0.06); Absolute Basophil Count 0.06 10^3/uL (0.0-0.2); Absolute Eosinophil Count 0.11 10^3/uL (0.0-0.7); Absolute Lymphocyte Count 1.91 10^3/uL (1.2-3.4); Absolute Monocyte Count 0.62 10^3/uL (0.1-0.8); Absolute Neutrophil Count 7.58 10^3/uL (1.2-6.7); Basophils % 0.6; Eosinophils % 1.1; HCT 42.6 % (36.0-46.0); HGB 14.1 g/dL (11.2-15.7); Immature Grans % 0.3; Lymphocytes % 18.5; MCH 30.9 pg (27.0-33.0); MCHC 33.1 % (32.0-36.0); MCV 93 fL (80-95); MPV 10.3 fL (8.0-11.0); Neutrophils % 73.5; Platelet Count 280 10^3/uL (130-400); RBC 4.56 10^6/uL (3.93-5.22); RDW 12.8 % (11.7-14.6); RDW-SD 43.9 fL; WBC 10.31 10^3/uL (4.4-10.8)
[2022-09-15 14:56] LABS: Hemoglobin A1C 5.5 % (<5.7)
[2022-09-15 15:35] LABS: Anion Gap 8.5 mmol/L (3-11); BUN 18 mg/dL (7-18); CO2 27.5 mmol/L (21.0-32.0); Calcium 10.5 mg/dL (8.5-10.1); Chloride 104 mmol/L (98-107); Estimated GFR 61.36 (mL/min/1.73m2); Glucose 85 mg/dL (74-106); Potassium 4.2 mmol/L (3.5-5.1); Sodium 140 mmol/L (136-145)
== END 2022-09-15 05:20 | disposition home or self-care (01) ==
LOC: LBO 05:19
PROVIDERS: Counselor Addiction (Substance Use Disorder); PCP Family Medicine; Visit Provider Psychiatry & Neurology Psychiatry
DX: E11.51 Type 2 diabetes mellitus with diabetic peripheral angiopathy without gangrene (principal); F20.9 Schizophrenia, unspecified; Z79.899 Other long term (current) drug therapy
CPT/HCPCS: 36415; 80048; 83036; 85025

== ENCOUNTER 2022-10-13 02:48 | Outpatient (CLI) | payer MEDICARE, SELFPAY ==
[2022-10-13 14:36] LABS: Abs Immature Grans 0.02 10^3/uL (0.0-0.06); Absolute Basophil Count 0.06 10^3/uL (0.0-0.2); Absolute Eosinophil Count 0.23 10^3/uL (0.0-0.7); Absolute Lymphocyte Count 1.78 10^3/uL (1.2-3.4); Absolute Neutrophil Count 6.58 10^3/uL (1.2-6.7); Basophils % 0.6; Eosinophils % 2.5; HGB 13.3 g/dL (11.2-15.7); Immature Grans % 0.2; Lymphocytes % 19.2; MCH 31.3 pg (27.0-33.0); MCHC 33.3 % (32.0-36.0); MCV 94 fL (80-95); MPV 9.9 fL (8.0-11.0); Monocytes % 6.5; Platelet Count 251 10^3/uL (130-400); RBC 4.25 10^6/uL (3.93-5.22); RDW 12.6 % (11.7-14.6); RDW-SD 43.1 fL; WBC 9.27 10^3/uL (4.4-10.8)
== END 2022-10-13 02:49 | disposition home or self-care (01) ==
LOC: LBO 02:48
PROVIDERS: PCP Family Medicine; Visit Provider Counselor Addiction (Substance Use Disorder)
DX: F20.9 Schizophrenia, unspecified (principal); Z79.899 Other long term (current) drug therapy
CPT/HCPCS: 36415; 85025

== ENCOUNTER 2022-11-10 04:06 | Outpatient (CLI) | payer MEDICARE, SELFPAY ==
[2022-11-10 14:12] LABS: Abs Immature Grans 0.03 10^3/uL (0.0-0.06); Absolute Basophil Count 0.05 10^3/uL (0.0-0.2); Absolute Eosinophil Count 0.14 10^3/uL (0.0-0.7); Absolute Lymphocyte Count 1.58 10^3/uL (1.2-3.4); Absolute Monocyte Count 0.49 10^3/uL (0.1-0.8); Absolute Neutrophil Count 6.23 10^3/uL (1.2-6.7); Basophils % 0.6; Eosinophils % 1.6; HCT 39.5 % (36.0-46.0); HGB 13.3 g/dL (11.2-15.7); Immature Grans % 0.4; Lymphocytes % 18.5; MCH 31.3 pg (27.0-33.0); MCHC 33.7 % (32.0-36.0); MCV 93 fL (80-95); MPV 9.5 fL (8.0-11.0); Monocytes % 5.8; Neutrophils % 73.1; Platelet Count 244 10^3/uL (130-400); RBC 4.25 10^6/uL (3.93-5.22); RDW 12.4 % (11.7-14.6); RDW-SD 42.1 fL; WBC 8.52 10^3/uL (4.4-10.8)
== END 2022-11-10 04:07 | disposition home or self-care (01) ==
LOC: LBO 04:06
PROVIDERS: PCP Family Medicine; Visit Provider Counselor Addiction (Substance Use Disorder)
DX: F20.9 Schizophrenia, unspecified (principal); Z79.899 Other long term (current) drug therapy
CPT/HCPCS: 36415; 85025

== ENCOUNTER 2022-11-15 14:19 | Outpatient (CLI) | payer MEDICARE, SELFPAY ==
--- NOTE | 2022-11-15 14:00 | DI.RAD_ITS ---
Exam(s) XR HIP LT AP LAT ONLY XR HIP RT AP LAT ONLY EXAM: XR HIP RT AP LAT ONLY and XR hip LT AP Lat only CLINICAL HISTORY: YEARLY F/U FEI. TECHNIQUE: 2D digital imaging was performed of the left and right hip. Four images were obtained. A P pelvis and lateral right hip views were obtained. COMPARISON: CR XR HIP LT COMPLETE AP PELVIS from 11/26/2021 FINDINGS: BONES: No acute fracture is present. No bony destructive lesion is seen. JOINTS: No dislocation present. There are stable postsurgical changes of bilateral total hip replacem ents. No evidence of hardware failure. SOFT TISSUE: Normal. IMPRESSION: Stable bilateral total hip replacements. DATA REPOSITORY: RADIATION DOSE DELIVERED:
== END 2022-11-15 14:20 | disposition home or self-care (01) ==
LOC: DIORS 14:19
PROVIDERS: PCP Family Medicine; Referring Provider Family Medicine; Visit Provider Student in an Organized Health Care Education/Training Program
DX: M17.12 Unilateral primary osteoarthritis, left knee; Z96.643 Presence of artificial hip joint, bilateral
CPT/HCPCS: 99213; 73502

== ENCOUNTER 2022-12-08 02:57 | Outpatient (CLI) | payer MEDICARE, SELFPAY ==
[2022-12-08 14:19] LABS: Abs Immature Grans 0.02 10^3/uL (0.0-0.06); Absolute Basophil Count 0.07 10^3/uL (0.0-0.2); Absolute Eosinophil Count 0.22 10^3/uL (0.0-0.7); Absolute Lymphocyte Count 2.16 10^3/uL (1.2-3.4); Absolute Monocyte Count 0.78 10^3/uL (0.1-0.8); Absolute Neutrophil Count 6.55 10^3/uL (1.2-6.7); Basophils % 0.7; Eosinophils % 2.2; HCT 42.3 % (36.0-46.0); HGB 13.8 g/dL (11.2-15.7); Immature Grans % 0.2; MCH 30.3 pg (27.0-33.0); MCHC 32.6 % (32.0-36.0); MCV 93 fL (80-95); MPV 9.7 fL (8.0-11.0); Neutrophils % 66.9; Platelet Count 272 10^3/uL (130-400); RBC 4.55 10^6/uL (3.93-5.22); RDW 12.8 % (11.7-14.6); RDW-SD 43.7 fL
== END 2022-12-08 02:58 | disposition home or self-care (01) ==
LOC: LBO 02:57
PROVIDERS: PCP Family Medicine; Visit Provider Counselor Addiction (Substance Use Disorder)
DX: F20.9 Schizophrenia, unspecified (principal); Z79.899 Other long term (current) drug therapy
CPT/HCPCS: 36415; 85025

== ENCOUNTER 2023-01-04 02:38 | Outpatient (CLI) | payer MEDICARE, SELFPAY ==
[2023-01-04 16:18] LABS: Abs Immature Grans 0.02 10^3/uL (0.0-0.06); Absolute Basophil Count 0.06 10^3/uL (0.0-0.2); Absolute Eosinophil Count 0.25 10^3/uL (0.0-0.7); Absolute Lymphocyte Count 2.07 10^3/uL (1.2-3.4); Absolute Monocyte Count 0.49 10^3/uL (0.1-0.8); Basophils % 0.7; Eosinophils % 2.8; HCT 38.5 % (36.0-46.0); HGB 12.5 g/dL (11.2-15.7); Immature Grans % 0.2; Lymphocytes % 23.5; MCH 30.8 pg (27.0-33.0); MCHC 32.5 % (32.0-36.0); MCV 95 fL (80-95); MPV 10.1 fL (8.0-11.0); Monocytes % 5.6; Neutrophils % 67.2; Platelet Count 242 10^3/uL (130-400); RBC 4.06 10^6/uL (3.93-5.22); RDW-SD 45.7 fL; WBC 8.79 10^3/uL (4.4-10.8)
== END 2023-01-04 02:39 | disposition home or self-care (01) ==
LOC: LBO 02:39
PROVIDERS: PCP Family Medicine; Visit Provider Counselor Addiction (Substance Use Disorder)
DX: F20.9 Schizophrenia, unspecified (principal); Z79.899 Other long term (current) drug therapy
CPT/HCPCS: 36415; 85025

== ENCOUNTER 2023-02-23 16:09 | Outpatient (CLI) | payer MEDICARE, SELFPAY ==
[2023-02-02 16:29] LABS: Abs Immature Grans 0.02 10^3/uL (0.0-0.06); Absolute Basophil Count 0.05 10^3/uL (0.0-0.2); Absolute Eosinophil Count 0.16 10^3/uL (0.0-0.7); Absolute Lymphocyte Count 2.01 10^3/uL (1.2-3.4); Absolute Monocyte Count 0.53 10^3/uL (0.1-0.8); Absolute Neutrophil Count 6.65 10^3/uL (1.2-6.7); Basophils % 0.5; Eosinophils % 1.7; HCT 38.7 % (36.0-46.0); HGB 12.8 g/dL (11.2-15.7); Immature Grans % 0.2; Lymphocytes % 21.3; MCH 30.8 pg (27.0-33.0); MCHC 33.1 % (32.0-36.0); MCV 93 fL (80-95); MPV 9.7 fL (8.0-11.0); Monocytes % 5.6; Neutrophils % 70.7; Platelet Count 248 10^3/uL (130-400); RBC 4.16 10^6/uL (3.93-5.22); RDW-SD 44.2 fL; WBC 9.42 10^3/uL (4.4-10.8)
[2023-02-02 17:48] LABS: Alkaline Phosphatase 170 U/L (46-116); TSH (W/Ref FT4) 1.04 uIU/mL (0.36-3.74)
[2023-02-04 08:37] LABS: Lab Add On Test DONE
[2023-02-04 08:38] LABS: ALT 36 U/L (14-59); AST 19 U/L (15-37); Albumin 3.7 g/dL (3.4-5.0); Bilirubin, Direct 0.1 mg/dL (0.0-0.2); Bilirubin, Total 0.3 mg/dL (0.2-1.0); Total Protein 6.4 g/dL (6.4-8.2)
[2023-02-08 00:29] LABS: Clozapine 138 ng/mL (350-600); Clozapine+Norclozapine Total 250 ng/mL; Norclozapine 112 ng/mL
== END 2023-02-23 16:10 | disposition home or self-care (01) ==
LOC: LBO 16:09
PROVIDERS: PCP Family Medicine; Visit Provider Counselor Addiction (Substance Use Disorder)
DX: Z79.899 Other long term (current) drug therapy (principal); F20.9 Schizophrenia, unspecified
CPT/HCPCS: 36415; 80076; 80159; 84075; 84443; 85025

== ENCOUNTER 2023-03-03 02:24 | Outpatient (CLI) | payer MEDICARE, SELFPAY ==
[2023-03-03 15:32] LABS: Abs Immature Grans 0.02 10^3/uL (0.0-0.06); Absolute Basophil Count 0.04 10^3/uL (0.0-0.2); Absolute Eosinophil Count 0.13 10^3/uL (0.0-0.7); Absolute Lymphocyte Count 1.94 10^3/uL (1.2-3.4); Absolute Neutrophil Count 4.81 10^3/uL (1.2-6.7); Basophils % 0.5; Eosinophils % 1.7; HCT 40.4 % (36.0-46.0); HGB 13.3 g/dL (11.2-15.7); Immature Grans % 0.3; Lymphocytes % 26.1; MCH 30.6 pg (27.0-33.0); MCHC 32.9 % (32.0-36.0); MCV 93 fL (80-95); MPV 9.7 fL (8.0-11.0); Monocytes % 6.7; Neutrophils % 64.7; Platelet Count 243 10^3/uL (130-400); RBC 4.35 10^6/uL (3.93-5.22); RDW 12.5 % (11.7-14.6); RDW-SD 43.1 fL; WBC 7.44 10^3/uL (4.4-10.8)
== END 2023-03-03 02:25 | disposition home or self-care (01) ==
PROVIDERS: PCP Family Medicine; Visit Provider Counselor Addiction (Substance Use Disorder)
DX: F20.9 Schizophrenia, unspecified (principal); Z79.899 Other long term (current) drug therapy
CPT/HCPCS: 36415; 80048; 85027; 85025

== ENCOUNTER 2023-04-01 03:31 | Outpatient (CLI) | payer MEDICARE, SELFPAY ==
[2023-04-01 13:32] LABS: Abs Immature Grans 0.02 10^3/uL (0.0-0.06); Absolute Basophil Count 0.07 10^3/uL (0.0-0.2); Absolute Eosinophil Count 0.24 10^3/uL (0.0-0.7); Absolute Lymphocyte Count 1.58 10^3/uL (1.2-3.4); Absolute Monocyte Count 0.68 10^3/uL (0.1-0.8); Absolute Neutrophil Count 5.83 10^3/uL (1.2-6.7); Basophils % 0.8; Eosinophils % 2.9; HCT 39.7 % (36.0-46.0); Immature Grans % 0.2; Lymphocytes % 18.8; MCH 30.9 pg (27.0-33.0); MCHC 32.7 % (32.0-36.0); MCV 94 fL (80-95); MPV 9.4 fL (8.0-11.0); Monocytes % 8.1; Neutrophils % 69.2; Platelet Count 272 10^3/uL (130-400); RBC 4.21 10^6/uL (3.93-5.22); RDW-SD 45.1 fL; WBC 8.42 10^3/uL (4.4-10.8)
== END 2023-04-01 03:32 | disposition home or self-care (01) ==
LOC: LBO 03:31
PROVIDERS: PCP Family Medicine; Visit Provider Counselor Addiction (Substance Use Disorder)
DX: F20.9 Schizophrenia, unspecified (principal); Z79.899 Other long term (current) drug therapy
CPT/HCPCS: 36415; 85025

== ENCOUNTER 2023-04-27 04:40 | Outpatient (CLI) | payer MEDICARE, SELFPAY ==
[2023-04-27 16:09] LABS: Abs Immature Grans 0.03 10^3/uL (0.0-0.06); Absolute Eosinophil Count 0.08 10^3/uL (0.0-0.7); Absolute Lymphocyte Count 1.56 10^3/uL (1.2-3.4); Absolute Monocyte Count 0.68 10^3/uL (0.1-0.8); Basophils % 0.5; Eosinophils % 0.7; HCT 38.6 % (36.0-46.0); HGB 12.5 g/dL (11.2-15.7); Immature Grans % 0.3; Lymphocytes % 14.3; MCH 30.2 pg (27.0-33.0); MCHC 32.4 % (32.0-36.0); MCV 93 fL (80-95); MPV 9.7 fL (8.0-11.0); Monocytes % 6.2; Platelet Count 237 10^3/uL (130-400); RBC 4.14 10^6/uL (3.93-5.22); RDW 12.9 % (11.7-14.6); RDW-SD 44.1 fL; WBC 10.93 10^3/uL (4.4-10.8)
[2023-04-27 16:10] LABS: Absolute Basophil Count 0.05 10^3/uL (0.0-0.2); Absolute Neutrophil Count 8.53 10^3/uL (1.2-6.7)
== END 2023-04-27 04:41 | disposition home or self-care (01) ==
LOC: LBO 04:44
PROVIDERS: PCP Family Medicine; Visit Provider Counselor Addiction (Substance Use Disorder)
DX: F20.9 Schizophrenia, unspecified (principal); Z79.899 Other long term (current) drug therapy
CPT/HCPCS: 36415; 85025

== ENCOUNTER 2023-05-25 04:15 | Outpatient (CLI) | payer MEDICARE, SELFPAY ==
[2023-05-25 14:19] LABS: Abs Immature Grans 0.02 10^3/uL (0.0-0.06); Absolute Basophil Count 0.05 10^3/uL (0.0-0.2); Absolute Lymphocyte Count 1.86 10^3/uL (1.2-3.4); Absolute Monocyte Count 0.65 10^3/uL (0.1-0.8); Absolute Neutrophil Count 5.95 10^3/uL (1.2-6.7); Basophils % 0.6; Eosinophils % 2.3; HCT 40.7 % (36.0-46.0); HGB 13.5 g/dL (11.2-15.7); Immature Grans % 0.2; Lymphocytes % 21.3; MCHC 33.2 % (32.0-36.0); MCV 93 fL (80-95); MPV 9.8 fL (8.0-11.0); Monocytes % 7.4; Neutrophils % 68.2; Platelet Count 267 10^3/uL (130-400); RBC 4.36 10^6/uL (3.93-5.22); RDW 12.8 % (11.7-14.6); RDW-SD 43.9 fL; WBC 8.73 10^3/uL (4.4-10.8)
[2023-05-25 14:37] LABS: Calculated LDL 56 mg/dL (<100); Cholesterol 137 mg/dL (<200); HDL Cholesterol 69 mg/dL (40-60); Triglyceride 63 mg/dL (<150)
== END 2023-05-25 04:16 | disposition home or self-care (01) ==
LOC: LBO 04:15
PROVIDERS: PCP Family Medicine; Visit Provider Counselor Addiction (Substance Use Disorder)
DX: E78.5 Hyperlipidemia, unspecified (principal); F20.9 Schizophrenia, unspecified; Z79.899 Other long term (current) drug therapy
CPT/HCPCS: 36415; 80061; 85025

== ENCOUNTER 2023-06-01 15:22 | Emergency (ER) | payer MEDICARE, SELFPAY ==
[2023-06-01 15:31] VITALS: BP 172/119; PULSE 105; RESP 18; TEMP 35.6; O2SAT 98
--- NOTE | 2023-06-01 16:30 | DI.RAD_ITS ---
Exam(s) XR ABD FLAT UPRIGHT PA CHEST CLINICAL HISTORY: Constipation. COMPARISON: CT CT CHEST WO from 10/29/2021 FINDINGS: LUNGS: Clear. No pleural abnormality seen. HEART: Normal. MEDIASTINUM: Normal. BOWEL GAS PATTERN: Large quantity of stool seen throughout the colon. No small bowel dilatation. No air-fluid levels seen. ABNORMAL COLLECTIONS OF AIR: No abnormal collection of air. No pneumoperitoneum. Bones: Bilateral hip prostheses. Degenerative changes in the spine. IMPRESSION: 1. Large quantity of stool seen throughout the colon. 2. No acute pulmonary findings.
--- NOTE | 2023-06-01 16:39 | W.ED.GENAD ---
HPI General Mode of arrival: ambulatory. Date/Time Provider Initiated Documentation: 06/01/23 16:01. Limitations to Documentation: physical limitation. Information obtained by: patient, family (Friend Sherita), RN notes reviewed and old records reviewed. HPI Narrative: 67-year-old female presents to the ER with a chief complaint of having hard time having a bowel movement for the last 3 days. She also reports some abdominal bloating and small amount of emesis. Patient was sent here by [facility]. She does have a past medical history of hypothyroidism,, GERD, urge urinary incontinence, MRSA infection she has had a hip replacement. Her friend also reports that she has been groaning and having hard time breathing recently. Her lungs are clear to auscultation bilaterally. She is somewhat poor historian. Very difficult to understand her. She is not sure if she is ever had any abdominal surgeries. Her abdomen is bloated, soft. Her friend also reports that she has noticed some blood in her urine recently. Related Data Home Medications Medication Instructions Recorded Confirmed bupropion HCl 100 mg tablet,12 hr 100 mg PO QAM #30 tabs 04/07/21 06/01/23 sustained-release acetylcysteine 600 mg capsule (NAC) 1,200 mg PO BID 07/15/21 06/01/23 ascorbate calcium (vitamin C) 500 500 mg PO DAILY 07/15/21 06/01/23 mg tablet melatonin 3 mg capsule 3 mg PO HS PRN 07/15/21 06/01/23 omega 0-etx-yxv-fish oil 100 1 cap PO DAILY 07/15/21 06/01/23 mg-160 mg-1,000 mg capsule (Fish Oil) Bedside Commode #1 ea 08/03/21 05/11/23 Raised Toilet Seat #1 ea 08/03/21 05/11/23 lorazepam 0.5 mg tablet 0.5 tab PO BID PRN 11/10/21 06/01/23 acetaminophen 500 mg tablet 1,000 mg (2 x 500 mg) PO TID #90 11/11/21 06/01/23 tabs clopidogrel 75 mg tablet 75 mg PO DAILY #90 tabs 09/06/22 06/01/23 levothyroxine 88 mcg tablet 88 mcg PO DAILY #90 tabs 11/29/22 06/01/23 loratadine 10 mg tablet 10 mg PO DAILY #90 tabs 11/29/22 06/01/23 atorvastatin 40 mg tablet 40 mg PO QPM #90 tabs 02/21/23 06/01/23 cholecalciferol (vitamin D3) 25 25 mcg PO DAILY 03/03/23 06/01/23 mcg (1,000 unit) capsule clozapine 25 mg tablet 25 mg PO DAILY 03/03/23 06/01/23 calcium carbonate 600 mg-vitamin 1 tab PO DAILY #90 tabs 03/21/23 06/01/23 D3 10 mcg (400 unit) chewable tablet (Calcium 600 with Vitamin D3) famotidine 20 mg tablet 20 mg PO DAILY #90 tabs 04/20/23 06/01/23 multivitamin with minerals-ferrous 1 tab PO DAILY #100 tabs 04/27/23 06/01/23 sulfate 4.5 mg iron tablet (One Daily Multivitamins with Minerals) psyllium husk 0.4 gram capsule 0.4 g PO DAILY #90 caps 05/11/23 06/01/23 (Metamucil) Previous Rx's Medication Instructions Recorded bupropion HCl 100 mg tablet,12 hr 100 mg PO QAM #30 tabs 04/07/21 sustained-release Bedside Commode #1 ea 08/03/21 Raised Toilet Seat #1 ea 08/03/21 acetaminophen 500 mg tablet 1,000 mg (2 x 500 mg) PO TID #90 11/11/21 tabs clopidogrel 75 mg tablet 75 mg PO DAILY #90 tabs 09/06/22 levothyroxine 88 mcg tablet 88 mcg PO DAILY #90 tabs 11/29/22 loratadine 10 mg tablet 10 mg PO DAILY #90 tabs 11/29/22 atorvastatin 40 mg tablet 40 mg PO QPM #90 tabs 02/21/23 calcium carbonate 600 mg-vitamin 1 tab PO DAILY #90 tabs 03/21/23 D3 10 mcg (400 unit) chewable tablet (Calcium 600 with Vitamin D3) famotidine 20 mg tablet 20 mg PO DAILY #90 tabs 04/20/23 multivitamin with minerals-ferrous 1 tab PO DAILY #100 tabs 04/27/23 sulfate 4.5 mg iron tablet (One Daily Multivitamins with Minerals) psyllium husk 0.4 gram capsule 0.4 g PO DAILY #90 caps 05/11/23 (Metamucil) Allergies Allergy/AdvReac Type Severity Reaction Status Date / Time chlorpheniramine Allergy Verified 06/01/23 16:02 erythromycin base Allergy Verified 06/01/23 16:02 Penicillins Allergy Verified 06/01/23 16:02 General Stated Complaint: Abd Prob JESSICA: 3 Review of Systems All systems reviewed & are unremarkable except as noted in HPI and below Exam Narrative Exam Narrative: Constitutional: Alert and oriented x2. Appears stated age. Normal body habitus. Poor historian. Patient is talking very lightly. This is at patient's baseline per her friend Sherita. Head: Normocephalic, no trauma. Eyes: Pupils PERRL, Red reflex noted, EOM's intact. Eyelids symmetrical without lesions, discharge, or swelling. ENT: Bilateral TM's WNL, External ear normal to inspection, no mastoid TTP, swelling, or erythema, Nasal turbinates WNL, no nasal discharge. Normal dentition, Posterior pharynx WNL, no exudate. Chest: RRR, Normal S1, S2, distal pulses intact. Resp: Lungs clear to auscultation bilaterally, no wheezes, rales, or rhonchi. Abdomen: Soft, Normoactive bowel sounds all 4 quads. Distended, nontender with palpation no masses no guarding. Musculoskeletal: Unable to assess gait, 5/5 strength to all four extremities. Moves all 4 extremities without difficulty. Skin: No suspicious rashes or lesions. Capillary refill less than 2 sec. Neurologic: Cranial nerves II-XII intact. Alert and oriented x 2. Motor: No deficits noted. Hematologic/Lymphatic: No ecchymosis, no lymphadenopathy. Course Vital Signs Vital signs: Vital Signs Temperature 35.6 C L 06/01/23 15:31 Pulse 105 H 06/01/23 15:31 Respiratory Rate 18 06/01/23 15:31 Blood Pressure 172/119 H 06/01/23 15:31 Pulse Oximetry 98 06/01/23 15:31 Temperature 35.6 C L 06/01/23 15:31 Temperature Source Skin 06/01/23 15:31 Pulse 105 H 06/01/23 15:31 Respiratory Rate 18 06/01/23 15:31 Respiratory Effort Normal 06/01/23 16:00 Blood Pressure 172/119 H 06/01/23 15:31 Blood Pressure Position Sitting 06/01/23 15:31 Pulse Oximetry 98 06/01/23 15:31 Oxygen Delivery Method Room Air 06/01/23 15:31 Oxygen Flow Rate 0 06/01/23 15:31 Pain Level 6 06/01/23 15:31 Medical Decision Making 67-year-old female presents to the ER with a chief complaint of having hard time having a bowel movement for the last 3 days. She also reports some abdominal bloating and small amount of emesis. Patient was sent here by [facility]. She does have a past medical history of hypothyroidism,, GERD, urge urinary incontinence, MRSA infection she has had a hip replacement. Her friend also reports that she has been groaning and having hard time breathing recently. Her lungs are clear to auscultation bilaterally. She is somewhat poor historian. Very difficult to understand her. She is not sure if she is ever had any abdominal surgeries. Her abdomen is bloated, soft. Her friend also reports that she has noticed some blood in her urine recently. Patient does have a history of a schizoaffective disorder and a CVA, labs ordered including urinalysis, CBC CMP, IV, 3 wayx-ray of abdomen. Labs are largely unremarkable, no leukocytosis, CMP is within normal limits, sodium potassium within normal limits BUN 29 creatinine 0.9. Urinalysis shows trace ketones trace leukocytes, culture is pending at this time. X-ray shows large amount of stool noted throughout the colon, no air-fluid level seen. Will give mag citrate half here in half at home and send home with glycerin suppository for constipation. Will give instructions on increasing oral fluids and strict return instructions. Will also treat for possible early urinary tract infection due to trace ketones trace leukocytes with Fosphomycin 3gm PO now. Patient is complaining of some possible urinary frequency. Patient discharged in the care of her friend. This text was generated using [employer] system, please disregard any oddities of phrase or misspellings. Medical Records Medical records reviewed: Yes I reviewed the patient's medical records. Imaging Data Radiologic Study: Imaging: X-Ray Radiologist's impression: Exam(s) XR ABD FLAT UPRIGHT PA CHEST CLINICAL HISTORY: Constipation. COMPARISON: CT CT CHEST WO from 10/29/2021 FINDINGS: LUNGS: Clear. No pleural abnormality seen. HEART: Normal. MEDIASTINUM: Normal. BOWEL GAS PATTERN: Large quantity of stool seen throughout the colon. No small bowel dilatation. No air-fluid levels seen. ABNORMAL COLLECTIONS OF AIR: No abnormal collection of air. No pneumoperitoneum. Bones: Bilateral hip prostheses. Degenerative changes in the spine. IMPRESSION: 1. Large quantity of stool seen throughout the colon. 2. No acute pulmonary findings. Lab Data Lab results reviewed: Yes I reviewed the patient's lab results. Labs: 06/01/23 17:15 Urine - Reflex from Ua Urine Culture - Pending Laboratory Tests Range/Units 06/01/23 06/01/23 06/01/23 16:15 16:45 17:15 WBC (4.4-10.8) 10^3/uL 7.76 RBC (3.93-5.22) 10^6/uL 3.85 L Hgb (11.2-15.7) g/dL 12.1 Hct (36.0-46.0) % 35.7 L MCV (80-95) fL 93 MCH (27.0-33.0) pg 31.4 MCHC (32.0-36.0) % 33.9 RDW (11.7-14.6) % 13.2 Plt Count (130-400) 10^3/uL 239 MPV (8.0-11.0) fL 9.5 Immature Gran % 0.3 Neutrophils % 69.4 Lymphocytes % 19.8 Monocytes % 7.7 Eosinophils % 2.2 Basophils % 0.6 Nucleated RBC % (0.0-0.3) % 0.0 Absolute Neutrophils (1.2-6.7) 10^3/uL 5.38 Absolute Lymphocytes (1.2-3.4) 10^3/uL 1.54 Absolute Monocytes (0.1-0.8) 10^3/uL 0.60 Absolute Eosinophils (0.0-0.7) 10^3/uL 0.17 Absolute Basophils (0.0-0.2) 10^3/uL 0.05 Sodium (136-145) mmol/L 139 Potassium (3.5-5.1) mmol/L 3.8 Chloride (98-107) mmol/L 104 Carbon Dioxide (21.0-32.0) mmol/L 25.3 Anion Gap (3-11) mmol/L 9.7 BUN (7-18) mg/dL 21 H Creatinine (0.55-1.02) mg/dL 0.9 Est GFR (CKD-EPI 2020) (mL/min/1.73m2) 69.64 Glucose (74-106) mg/dL 92 Calcium (8.5-10.1) mg/dL 9.4 Magnesium (1.8-2.4) mg/dL 1.9 Total Bilirubin (0.2-1.0) mg/dL 0.3 AST (15-37) U/L 16 ALT (14-59) U/L 32 Alkaline Phosphatase (46-116) U/L 166 H Total Protein (6.4-8.2) g/dL 6.2 L Albumin (3.4-5.0) g/dL 3.2 L Urine Color (Yellow) Yellow Urine Clarity (Clear) Clear Urine pH (5-8) 6.0 Ur Specific [place] (1.005-1.025) 1.020 Urine Protein (Negative) mg/dL Negative Urine Ketones (Negative) mg/dL Trace H Urine Blood (Negative) Negative Urine Nitrite (Negative) Negative Urine Bilirubin (Negative) Negative Urine Urobilinogen (Up to 0.2) mg/dL 0.2 Ur Leukocyte Esterase (Negative) Trace H Urine RBC (0-2) HPF 0-2 Urine WBC (0-5) HPF 5-10 Ur Epithelial Cells (Negative) HPF Few Urine Crystals (Negative) HPF Negative Urine Bacteria (Negative) HPF Few Urine Casts (Negative) LPF Negative Urine Mucus (Negative) Negative Ur Culture Indicated? 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 MRSA (methicillin resistant staph aureus) culture positive (Acute 04/04/13) Hyponatremia (Acute 03/24/94) Abnormal weight loss (Acute 06/21/12) Hydradenitis (Acute) in rt upper thigh region Rash (Acute) Leg swelling (Acute) Bilateral knee pain (Acute) Left knee DJD (Chronic) Most recent injection: 08/30/22; 05/27/2021; 08/18/20; 03/31/2020 Hematuria (Acute) Thoracic aortic aneurysm (Acute) 4.[address] from 09/[address] from 10/2021 Lethargy (Acute) AMS (altered mental status) (Acute) Depression (Chronic) Hypokalemia (Acute) Hypomagnesemia (Acute) Schizoaffective disorder (Chronic) Discharge planning issues (Acute) DVT prophylaxis (Acute) Acute CVA (cerebrovascular accident) (Acute) CVA (cerebral vascular accident) (Chronic) Rash (Acute) Dry skin (Acute) Status post right hip replacement (Acute 08/05/21) Medical History GERD (gastroesophageal reflux disease) Urge urinary incontinence Osteoarthritis Hypothyroidism Folliculitis Hx of malignant neoplasm of vagina Hx MRSA infection Surgical History History of hip replacement Colonoscopy - MAC (02/14/17) Colonoscopy - MAC (01/12/11) Social History Smoking/Tobacco Use Status: Current-Occasional Tobacco Type: cigarettes Smoking risk assessment performed?: Yes Alcohol Intake: current Alcohol Intake frequency: holidays/special occasions only Drug use: Never Substance use type: does not use Current gender identity: female Do you feel safe at home: Yes Do you feel safe in your relationship?: Yes Discharge Plan Disposition Patient Disposition: Home Condition: Stable Discharge Details Clinical Impression: Acute constipation Primary Care Provider: Dillon Scott ED Provider: Tonya Carrera Home Meds and New Rx's Prescriptions: No Action psyllium husk [Metamucil] 0.4 gram capsule 0.4 g PO DAILY Qty: 90 3RF ascorbate calcium (vitamin C) 500 mg tablet 500 mg PO DAILY melatonin 3 mg capsule 3 mg PO HS PRN acetylcysteine [NAC] 600 mg capsule 1,200 mg PO BID Fish Oil 100-160-1,000 mg capsule 1 cap PO DAILY (DME) Raised Toilet Seat See Rx Instructions .ROUTE .MEDSUPPLY Qty: 1 0RF Rx Instructions: As directed (DME) Bedside Commode See Rx Instructions .Route .MEDSUPPLY Qty: 1 0RF Patient Comments: caregiver states it is coming today Rx Instructions: Utilize commode during initial recovery s/p hip replacement clopidogrel 75 mg tablet 75 mg PO DAILY Qty: 90 3RF loratadine 10 mg tablet 10 mg PO DAILY Qty: 90 4RF levothyroxine 88 mcg tablet 88 mcg PO DAILY Qty: 90 3RF atorvastatin 40 mg tablet 40 mg PO QPM Qty: 90 3RF cholecalciferol (vitamin D3) 25 mcg (1,000 unit) capsule 25 mcg PO DAILY clozapine 25 mg tablet 25 mg PO DAILY Calcium 600 with Vitamin D3 600 mg-10 mcg (400 unit) tablet,chewable 1 tab PO DAILY Qty: 90 3RF famotidine 20 mg tablet 20 mg PO DAILY Qty: 90 3RF One Daily Multi-Vit w-Mineral 4.5 mg iron tablet 1 tab PO DAILY Qty: 100 3RF lorazepam 0.5 mg tablet 0.5 tab PO BID PRN acetaminophen 500 mg tablet 1,000 mg PO TID Qty: 90 3RF bupropion HCl 100 mg Tablet Sustained-Release 12 Hr 100 mg PO QAM Qty: 30 0RF Discharge Instructions Instructions: Constipation (ED) Additional Instructions: At this time x-ray or labs do not show any evidence of obstruction. You do have large amount of stool and constipation noted. Please drink half of the bottle of liquid we gave you here in the ER here, half when you get home. This should produce a bowel movement in the next 12 hours. You may also try glycerin suppository while you are waiting for a bowel movement. You may also get these [id number]. Follow up with primary care provider in 3-5 days. Return to ED sooner if any worsening vomiting, unable to produce a bowel movement in the next 1 to 2 days, fever, or concerns. Increase oral fluids. You were given an antibiotic here in the department it which is a one-time dose for a possible early urinary tract infection. Referrals: Dillon Scott MD [Primary Care Provider] - 3 days Discharge Data Discharge Date/Time-TO BE ENTERED AT DEPARTURE: 06/01/23 18:11
[2023-06-01 16:54] LABS: Abs Immature Grans 0.02 10^3/uL (0.0-0.06); Absolute Basophil Count 0.05 10^3/uL (0.0-0.2); Absolute Eosinophil Count 0.17 10^3/uL (0.0-0.7); Absolute Lymphocyte Count 1.54 10^3/uL (1.2-3.4); Absolute Neutrophil Count 5.38 10^3/uL (1.2-6.7); Basophils % 0.6; Eosinophils % 2.2; HCT 35.7 % (36.0-46.0); HGB 12.1 g/dL (11.2-15.7); Immature Grans % 0.3; Lymphocytes % 19.8; MCH 31.4 pg (27.0-33.0); MCHC 33.9 % (32.0-36.0); MCV 93 fL (80-95); MPV 9.5 fL (8.0-11.0); Monocytes % 7.7; Neutrophils % 69.4; Platelet Count 239 10^3/uL (130-400); RBC 3.85 10^6/uL (3.93-5.22); RDW 13.2 % (11.7-14.6); RDW-SD 44.7 fL; WBC 7.76 10^3/uL (4.4-10.8)
[2023-06-01 17:05] LABS: ALT 32 U/L (14-59); AST 16 U/L (15-37); Albumin 3.2 g/dL (3.4-5.0); Alkaline Phosphatase 166 U/L (46-116); Anion Gap 9.7 mmol/L (3-11); BUN 21 mg/dL (7-18); Bilirubin, Total 0.3 mg/dL (0.2-1.0); CO2 25.3 mmol/L (21.0-32.0); CREATININE 0.9 mg/dL (0.55-1.02); Calcium 9.4 mg/dL (8.5-10.1); Chloride 104 mmol/L (98-107); Estimated GFR 69.64 (mL/min/1.73m2); Glucose 92 mg/dL (74-106); Magnesium 1.9 mg/dL (1.8-2.4); Potassium 3.8 mmol/L (3.5-5.1); Sodium 139 mmol/L (136-145); Total Protein 6.2 g/dL (6.4-8.2)
[2023-06-01 17:38] LABS: Bilirubin Negative (Negative); Blood Negative (Negative); Clarity Clear (Clear); Glucose Negative (Negative); Ketones Trace mg/dL (Negative); Leukocyte Esterase Trace (Negative); Nitrite Negative (Negative); Urobilinogen 0.2 mg/dL (Up to 0.2)
[2023-06-01 17:45] LABS: Bacteria Few HPF (Negative); C & S Indicated? Yes; Casts Negative LPF (Negative); Crystals Negative HPF (Negative); Epithelial Cells Few HPF (Negative); Mucus Negative (Negative); RBC 0-2 HPF (0-2)
[2023-06-01] MEDS: Magnesium Citrate 300 ML BTL PO (18:10)
[2023-06-01] MEDS: Glycerin Adult Suppository JAR 1 SUPP PR (18:10)
[2023-06-01] MEDS: Fosfomycin Tromethamine 3 GM PACKET PO (18:10)
== END 2023-06-01 18:11 | disposition home or self-care (01) ==
PROVIDERS: Emergency Provider Registered Nurse Emergency; PCP Family Medicine
DX: K59.00 Constipation, unspecified (principal); F17.210 Nicotine dependence, cigarettes, uncomplicated; Z79.02 Long term (current) use of antithrombotics/antiplatelets; Z86.73 Personal history of transient ischemic attack (TIA), and cerebral infarction without residual deficits
CPT/HCPCS: 80053; 99283; 74022; 81003; 81015; 83735; 85025; 87086; J3490

== ENCOUNTER 2023-06-22 03:23 | Outpatient (CLI) | payer MEDICARE, SELFPAY ==
[2023-06-22 14:31] LABS: Abs Immature Grans 0.02 10^3/uL (0.0-0.06); Absolute Basophil Count 0.05 10^3/uL (0.0-0.2); Absolute Eosinophil Count 0.16 10^3/uL (0.0-0.7); Absolute Lymphocyte Count 1.29 10^3/uL (1.2-3.4); Absolute Monocyte Count 0.77 10^3/uL (0.1-0.8); Absolute Neutrophil Count 7.65 10^3/uL (1.2-6.7); Basophils % 0.5; Eosinophils % 1.6; HCT 39.8 % (36.0-46.0); HGB 13.1 g/dL (11.2-15.7); Immature Grans % 0.2; MCHC 32.9 % (32.0-36.0); MCV 94 fL (80-95); Monocytes % 7.7; Platelet Count 251 10^3/uL (130-400); RBC 4.23 10^6/uL (3.93-5.22); RDW-SD 44.9 fL; WBC 9.94 10^3/uL (4.4-10.8)
== END 2023-06-22 03:24 | disposition home or self-care (01) ==
LOC: LBO 03:24
PROVIDERS: PCP Family Medicine; Visit Provider Counselor Addiction (Substance Use Disorder)
DX: F20.9 Schizophrenia, unspecified (principal); Z79.899 Other long term (current) drug therapy
CPT/HCPCS: 36415; 85025

== ENCOUNTER 2023-07-20 04:40 | Outpatient (CLI) | payer MEDICARE, SELFPAY ==
[2023-07-20 14:23] LABS: Abs Immature Grans 0.02 10^3/uL (0.0-0.06); Absolute Basophil Count 0.05 10^3/uL (0.0-0.2); Absolute Eosinophil Count 0.18 10^3/uL (0.0-0.7); Absolute Lymphocyte Count 1.32 10^3/uL (1.2-3.4); Absolute Monocyte Count 0.66 10^3/uL (0.1-0.8); Absolute Neutrophil Count 4.81 10^3/uL (1.2-6.7); Basophils % 0.7; Eosinophils % 2.6; HCT 41.9 % (36.0-46.0); HGB 13.4 g/dL (11.2-15.7); Immature Grans % 0.3; Lymphocytes % 18.8; MCH 30.7 pg (27.0-33.0); MCV 96 fL (80-95); MPV 9.7 fL (8.0-11.0); Monocytes % 9.4; Neutrophils % 68.2; Platelet Count 256 10^3/uL (130-400); RBC 4.37 10^6/uL (3.93-5.22); RDW 12.8 % (11.7-14.6); RDW-SD 45.7 fL; WBC 7.04 10^3/uL (4.4-10.8)
== END 2023-07-20 04:41 | disposition home or self-care (01) ==
LOC: LBO 04:40
PROVIDERS: PCP Family Medicine; Visit Provider Counselor Addiction (Substance Use Disorder)
DX: F20.9 Schizophrenia, unspecified (principal); Z79.899 Other long term (current) drug therapy
CPT/HCPCS: 36415; 85025

== ENCOUNTER 2023-08-24 20:50 | Inpatient (IN) | payer MEDICARE, SELFPAY ==
[2023-08-24] VITALS (36 sets, daily range): BP systolic 139–189; BP diastolic 50–103; PULSE 69–118; RESP 11–25; TEMP 36.3; O2SAT 87–98
--- NOTE | 2023-08-24 20:45 | RT.EKG_ITS ---
APPROVED REPORT Exam: Resting ECG Reason for Exam: SOB Patient Location: E HR:62 bpm ECG Measurements Heart Rate 62 AXIS OH 165 P 53 QRSd 90 QRS 52 QT 415 T 54 QTc 420 Conclusion Sinus rhythm. [address] segment changes
--- NOTE | 2023-08-24 21:00 | DI.CT_ITS ---
Exam(s) CT BRAIN NECK CTA EXAM: CT BRAIN NECK CTA CLINICAL HISTORY: STROKE. TECHNIQUE: Imaging Protocol: Axial CT angiography was performed with multi-slice acquisition and mu lti-planar and MIP reconstructions. CONTRAST MATERIAL: Intravenous: Omnipaque 350 Contrast volume:100 ml COMPARISON: CT CT BRAIN NECK CTA from 02/19/2021 FINDINGS: CT Head W/O and W contrast: Ventricles and Extra axial spaces: Normal in size and morphology for the patient's age. Hemorrhage: None. Cerebral parenchyma: No evidence of acute infarct or mass. Midline shift: None. Brainstem/Cerebellum: No acute findings.. Calvarium: Normal. Visualized Paranasal sinuses/Mastoids: Mucous retention cyst left maxillary sinus. Soft Tissues: Unremarkable. Enhancement: Normal. CTA Brain W: Internal Carotid Arteries: Petrous: Normal. Cavernous: Normal. Cerebral: Normal. Middle Cerebral Arteries: Right: No aneurysm, occlusion or significant stenosis. Left: No aneurysm, occlusion or significant stenosis. Anterior Cerebral Arteries: Right: No aneurysm, occlusion or significant stenosis. Left: No aneurysm, occlusion or significant stenosis. Posterior cerebral Arteries: Right: No aneurysm, occlusion or significant stenosis. Left: No aneurysm, occlusion or significant stenosis. Vertebral Arteries: Right: No aneurysm, occlusion or significant stenosis. Left: No aneurysm, occlusion or significant stenosis. Basilar Artery: No aneurysm, occlusion or significant stenosis. CTA Neck W: Common Carotid: Right: No dissection, occlusion or significant stenosis. Left: No dissection, occlusion or significant stenosis. External Carotid: Right: No dissection, occlusion or significant stenosis. Left: No dissection, occlusion or significant stenosis. Internal Carotid: Right: No dissection, occlusion or significant stenosis. Left: Calcific plaque at the proximal internal carotid artery without significant stenosis. No disse ction, occlusion or significant stenosis. Vertebral Artery: Right: No dissection, occlusion or significant stenosis. Left: No dissection, occlusion or significant stenosis. Lung Apices: Normal. Bones: No acute abnormality. Degenerative changes in the spine. Soft Tissues: Normal. IMPRESSION: 1. CTA brain: Normal CTA examination of the [place] [facility] [place]. 2. Head CT: Unremarkable CT Head. 3. CTA neck: Minimal calcific plaque at the proximal left internal carotid artery. No evidence of si gnificant stenosis or dissection. RADIATION DOSE DELIVERED: 2,104.06mGy.cm Total DLP DATA REPOSITORY: All CT scans at this facility are submitted to the National Radiology Data Registry (NRDR) Dose Index Registry (DIR) with the [employer] (ACR). RADIATION OPTIMIZATION: All CT scans at this facility use at least one of these dose optimization te chniques: automated exposure control; mA and/or kV adjustment per patient size (includes targeted exa ms where dose is matched to clinical indication); or iterative reconstruction.
--- NOTE | 2023-08-24 21:25 | ED.GENADUL_ITS ---
Discharge Plan Disposition Patient Disposition: Admit to [facility] Condition: Fair Discharge Details Clinical Impression: Encephalopathy, Acute alteration in mental status, Hypokalemia, Hypomagnesemia, Difficulty comprehending speech, Dysarthria, Tardive dyskinesia Primary Care Provider: Dillon Scott ED Provider: Gill Dobson Home Meds and New Rx's Prescriptions: No Action psyllium husk [Metamucil] 0.4 gram capsule 0.4 g PO DAILY Qty: 90 3RF ascorbate calcium (vitamin C) 500 mg tablet 500 mg PO DAILY melatonin 3 mg capsule 3 mg PO HS PRN acetylcysteine [NAC] 600 mg capsule 1,200 mg PO BID Fish Oil 100-160-1,000 mg capsule 1 cap PO DAILY (DME) Raised Toilet Seat See Rx Instructions .ROUTE .MEDSUPPLY Qty: 1 0RF Rx Instructions: As directed (DME) Bedside Commode See Rx Instructions .Route .MEDSUPPLY Qty: 1 0RF Patient Comments: caregiver states it is coming today Rx Instructions: Utilize commode during initial recovery s/p hip replacement loratadine 10 mg tablet 10 mg PO DAILY Qty: 90 4RF levothyroxine 88 mcg tablet 88 mcg PO DAILY Qty: 90 3RF atorvastatin 40 mg tablet 40 mg PO QPM Qty: 90 3RF cholecalciferol (vitamin D3) 25 mcg (1,000 unit) capsule 25 mcg PO DAILY clozapine 25 mg tablet 25 mg PO DAILY Calcium 600 with Vitamin D3 600 mg-10 mcg (400 unit) tablet,chewable 1 tab PO DAILY Qty: 90 3RF famotidine 20 mg tablet 20 mg PO DAILY Qty: 90 3RF One Daily Multi-Vit w-Mineral 4.5 mg iron tablet 1 tab PO DAILY Qty: 100 3RF clopidogrel 75 mg tablet 75 mg PO DAILY Qty: 90 3RF lorazepam 0.5 mg tablet 0.5 tab PO BID PRN acetaminophen 500 mg tablet 1,000 mg PO TID Qty: 90 3RF bupropion HCl 100 mg Tablet Sustained-Release 12 Hr 100 mg PO QAM Qty: 30 0RF HPI General Date/Time Provider Initiated Documentation: 08/24/23 20:56 . Limitations to Documentation: language barrier and altered mental status . Information obtained by: family ([facility]) and EMS . HPI Narrative: 68-year-old female with past medical history of CVA, schizoaffective disorder presents for evaluation of difficulty speaking. EMS reports that around 4:00 she was talking to mental health, and that they were contacted about 45 minutes ago to bring the patient to the hospital. They are unable to provide any day tional information at this time. Related Data Home Medications Medication Instructions Recorded Confirmed bupropion HCl 100 mg tablet,12 hr 100 mg PO QAM #30 tabs 04/07/21 08/24/23 sustained-release acetylcysteine 600 mg capsule (NAC) 1,200 mg PO BID 07/15/21 08/24/23 ascorbate calcium (vitamin C) 500 500 mg PO DAILY 07/15/21 08/24/23 mg tablet melatonin 3 mg capsule 3 mg PO HS PRN 07/15/21 08/24/23 omega 2-oxx-ivk-fish oil 100 1 cap PO DAILY 07/15/21 08/24/23 mg-160 mg-1,000 mg capsule (Fish Oil) Bedside Commode #1 ea 08/03/21 08/03/23 Raised Toilet Seat #1 ea 08/03/21 08/03/23 lorazepam 0.5 mg tablet 0.5 tab PO BID PRN 11/10/21 08/24/23 acetaminophen 500 mg tablet 1,000 mg (2 x 500 mg) PO TID #90 11/11/21 08/24/23 tabs levothyroxine 88 mcg tablet 88 mcg PO DAILY #90 tabs 11/29/22 08/24/23 loratadine 10 mg tablet 10 mg PO DAILY #90 tabs 11/29/22 08/24/23 atorvastatin 40 mg tablet 40 mg PO QPM #90 tabs 02/21/23 08/24/23 cholecalciferol (vitamin D3) 25 25 mcg PO DAILY 03/03/23 08/24/23 mcg (1,000 unit) capsule clozapine 25 mg tablet 25 mg PO DAILY 03/03/23 08/24/23 calcium carbonate 600 mg-vitamin 1 tab PO DAILY #90 tabs 03/21/23 08/24/23 D3 10 mcg (400 unit) chewable tablet (Calcium 600 with Vitamin D3) famotidine 20 mg tablet 20 mg PO DAILY #90 tabs 04/20/23 08/24/23 multivitamin with minerals-ferrous 1 tab PO DAILY #100 tabs 04/27/23 08/24/23 sulfate 4.5 mg iron tablet (One Daily Multivitamins with Minerals) psyllium husk 0.4 gram capsule 0.4 g PO DAILY #90 caps 05/11/23 08/24/23 (Metamucil) clopidogrel 75 mg tablet 75 mg PO DAILY #90 tabs 08/08/23 08/24/23 Previous Rx's Medication Instructions Recorded bupropion HCl 100 mg tablet,12 hr 100 mg PO QAM #30 tabs 04/07/21 sustained-release Bedside Commode #1 ea 08/03/21 Raised Toilet Seat #1 ea 08/03/21 acetaminophen 500 mg tablet 1,000 mg (2 x 500 mg) PO TID #90 11/11/21 tabs levothyroxine 88 mcg tablet 88 mcg PO DAILY #90 tabs 11/29/22 loratadine 10 mg tablet 10 mg PO DAILY #90 tabs 11/29/22 atorvastatin 40 mg tablet 40 mg PO QPM #90 tabs 02/21/23 calcium carbonate 600 mg-vitamin 1 tab PO DAILY #90 tabs 03/21/23 D3 10 mcg (400 unit) chewable tablet (Calcium 600 with Vitamin D3) famotidine 20 mg tablet 20 mg PO DAILY #90 tabs 04/20/23 multivitamin with minerals-ferrous 1 tab PO DAILY #100 tabs 04/27/23 sulfate 4.5 mg iron tablet (One Daily Multivitamins with Minerals) psyllium husk 0.4 gram capsule 0.4 g PO DAILY #90 caps 05/11/23 (Metamucil) clopidogrel 75 mg tablet 75 mg PO DAILY #90 tabs 08/08/23 Allergies Allergy/AdvReac Type Severity Reaction Status Date / Time chlorpheniramine Allergy Unknown Verified 08/24/23 21:17 erythromycin base Allergy Unknown Verified 08/24/23 21:17 Penicillins Allergy Rash Verified 08/24/23 21:17 General Stated Complaint: CVA/TIA JESSICA: 2 Exam Narrative Exam Narrative: Review of Systems: All systems reviewed & are unremarkable except as noted in HPI and below Well-developed, + acute distress NCAT PERRL, normal conjunctiva , no nystagmus RRR, no murmur + Hypertensive Unlabored respiratory effort, clear bilaterally Nondistended abdomen , nondistended Extremities w/o deformity, no cyanosis, no edema No rashes or lesions. Patient is alert, no appreciable facial asymmetry, no appreciable nystagmus, she is having some lip smacking blinking and repetitive swallowing. She is also noted to have rolling tremor in bilateral hands She has significant dysarthria and is only able to say first name Unable to get her to lift the left leg off the bed, she does seem to have sensation to painful stimulus in the left lower extremity Will raise the right leg off the bed Very light squeeze in the left hand, but will not raise the left arm off the bed Course Vital Signs Vital signs: Vital Signs Temperature 36.3 C L 08/24/23 20:51 Pulse 69 08/24/23 20:51 Respiratory Rate 22 08/24/23 20:51 Blood Pressure 189/92 H 08/24/23 20:51 Pulse Oximetry 98 08/24/23 20:51 Temperature 36.3 C L 08/24/23 20:51 Temperature Source Temporal Artery Scan 08/24/23 20:51 Pulse 69 08/24/23 20:51 Respiratory Rate 18 08/24/23 20:59 Respiratory Effort Normal, Non-Labored 08/24/23 20:59 Respiratory Depth Normal 08/24/23 20:59 Respiratory Pattern Normal 08/24/23 20:59 Blood Pressure 189/92 H 08/24/23 20:51 Blood Pressure Position Supine 08/24/23 20:51 Pulse Oximetry 98 08/24/23 20:51 Oxygen Delivery Method Room Air 08/24/23 20:51 Oxygen Flow Rate 0 08/24/23 20:51 Pain Level 0 08/24/23 20:51 Medical Decision Making Emergent evaluation of altered mental status. History is significantly limited from from EMS and I am unable to obtain history from the patient. She is apparently well-known to mental health services. EMS reports that they made con tact with her at 4:00 today, so I will reach out to them to gather more information. [facility] worker at bedside and reports that this is not the patient's baseline, she states that when she spoke with her around 630 she was speaking and had some difficulty understanding her, but she says that what she sees now is significantly worse. With this additional information I have called a stroke code. Unknown last seen normal 2129 Additional information obtained by [facility]. They report that they know the patient very well over the last many years. They state that prior to her stroke in 2021, she was very functional and independent person. They state that when she was admitted to the hospital in 2021, she had similar presenting symptoms with the speech difficulty and was found to have had a stroke. Apparently at 3 PM today the patient reached out and spoke with one of the caseworkers that she knows very well. She states at that time she thought that her speech was very abnormal and she was sounding confused and difficult to understand. She thought that maybe the patient was having a urinary tract infection or possibly a stroke. It is unclear when anyone has seen the patient prior to this though there is a documented note and encounter on August [id number] Lab work reviewed. No urinary tract infection. No leukocytosis. Mild hypokalemia of 3. Mild hypomagnesemia at 1.5. These will be repleted via IV. Her glucose is 67. EMS reports abnormal glucose over 100. I will give her an amp of D50. On my reevaluation of the patient, she is now moving all 4 extremities spontaneously. She seems to be more alert and she states that she is at a [facility] 2250 tele neuro evaluation completed. lower suspicion for Acute CVA, no LVO on imaging, but concerns for AMS, difficulty following commands and speaking. Unclear etiology with reassuring labs, no UTI. Given history, recommend MRI if symptoms aren't improving. Will discuss with hospitalist for admission. Medical Records Medical records reviewed: Yes I reviewed the patient's medical records. Lab Data Lab results reviewed: Yes I reviewed the patient's lab results. Quality:SDOH Health Related Social Needs: No Data to Display Critical Care Time Critical Care Time Critical Care Time: Yes Total Critical Care Time: 38 Attestation: CRITICAL CARE Upon my evaluation, this patient had a high probability of imminent or life- threatening deterioration due to AMS which required my direct attention, intervention, and personal management. I have personally provided 38 minutes of critical care time exclusive of time spent on separately billable procedures. Time includes review of laboratory data, radiology results, discussion with consultants, and monitoring for potential decompensation. Interventions were performed as documented above [facility] All Active Problems Tardive dyskinesia (Acute) Encephalopathy (Acute) Dysarthria (Acute) Difficulty comprehending speech (Acute) Hypomagnesemia (Acute) Hypokalemia (Acute) Acute alteration in mental status (Acute) PVD (peripheral vascular disease) (Chronic) Malaise (Acute) Low back pain (Acute) Elevated serum alkaline phosphatase level (Acute) Dystrophia unguium (Acute) Peripheral edema (Acute) Left knee pain (Acute) History of total left hip replacement (Acute 11/11/21) Schizoaffective disorder (Acute) Chronic diarrhea (Acute) Diarrhea (Chronic 05/15/12) h/o collagenous colitis 2008 on colonoscopy Edentulous (Acute 10/17/13) 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 MRSA (methicillin resistant staph aureus) culture positive (Acute 04/04/13) Hyponatremia (Acute 03/24/94) Abnormal weight loss (Acute 06/21/12) Hydradenitis (Acute) in rt upper thigh region Rash (Acute) Leg swelling (Acute) Bilateral knee pain (Acute) Left knee DJD (Chronic) Most recent injection: 08/30/22; 05/27/2021; 08/18/20; 03/31/2020 Hematuria (Acute) Thoracic aortic aneurysm (Acute) 4.[address] from 09/[address] from 10/2021 Lethargy (Acute) AMS (altered mental status) (Acute) Depression (Chronic) Hypokalemia (Acute) Hypomagnesemia (Acute) Schizoaffective disorder (Chronic) Discharge planning issues (Acute) DVT prophylaxis (Acute) Acute CVA (cerebrovascular accident) (Acute) CVA (cerebral vascular accident) (Chronic) Rash (Acute) Dry skin (Acute) Status post right hip replacement (Acute 08/05/21) Medical History GERD (gastroesophageal reflux disease) Urge urinary incontinence Osteoarthritis Hypothyroidism Folliculitis Hx of malignant neoplasm of vagina Hx MRSA infection Surgical History History of hip replacement Colonoscopy - MAC (02/14/17) Colonoscopy - MAC (01/12/11) Social History Smoking/Tobacco Use Status: Current-Occasional Tobacco Type: cigarettes Smoking risk assessment performed?: Yes Alcohol Intake: current Alcohol Intake frequency: holidays/special occasions only Drug use: Never Substance use type: does not use Housing: apartment Current gender identity: female Do you feel safe at home: Yes Do you feel safe in your relationship?: Yes
[2023-08-24] MEDS: Omnipaque 350 MG/ML 100 ML BTL IJ (21:27)
[2023-08-24] MEDS: Normal Saline - Diluent 50 ML VIAL IJ (21:28)
[2023-08-24 21:50] LABS: Abs Immature Grans 0.01 10^3/uL (0.0-0.06); Absolute Basophil Count 0.05 10^3/uL (0.0-0.2); Absolute Eosinophil Count 0.18 10^3/uL (0.0-0.7); Absolute Lymphocyte Count 2.04 10^3/uL (1.2-3.4); Absolute Monocyte Count 0.73 10^3/uL (0.1-0.8); Absolute Neutrophil Count 5.31 10^3/uL (1.2-6.7); Basophils % 0.6 %; Eosinophils % 2.2 %; HCT 36.8 % (36.0-46.0); HGB 12.4 g/dL (11.2-15.7); Immature Grans % 0.1 %; Lymphocytes % 24.5 %; MCH 30.9 pg (27.0-33.0); MCHC 33.7 % (32.0-36.0); MCV 92 fL (80-95); MPV 9.5 fL (8.0-11.0); Monocytes % 8.8 %; Neutrophils % 63.8 %; Platelet Count 240 10^3/uL (130-400); RBC 4.01 10^6/uL (3.93-5.22); RDW 12.5 % (11.7-14.6); WBC 8.32 10^3/uL (4.4-10.8)
[2023-08-24 22:02] LABS: INR 1.1 (0.9-1.1); Prothrombin Time 11.1 sec (9.1-11.1)
[2023-08-24 22:04] LABS: Bilirubin Negative (Negative); Blood Trace-intact (Negative); Clarity Clear (Clear); Glucose Negative (Negative); Ketones Negative (Negative); Leukocyte Esterase Negative (Negative); Nitrite Negative (Negative); Urobilinogen 0.2 mg/dL (Up to 0.2)
--- NOTE | 2023-08-24 22:10 | DI.VRAD_ITS ---
PROCEDURE INFORMATION: Exam: CTA Head With Contrast, Arteriography Exam date and time: 08/24/2023 9:28 PM Age: 68 years old Clinical indication: Other: Gargled speech, AMS, stroke TECHNIQUE: Imaging protocol: Computed tomographic angiography of the head with contrast. Exam focused on the arteries. 3D rendering (Not supervised by radiologist): MIP and/or 3D reconstructed images were created by the technologist. Contrast material: OMNI 350; Contrast volume: 100 ml; Contrast route: INTRAVENOUS (IV); COMPARISON: CT BRAIN NECK CTA 02/19/2021 3:07 PM FINDINGS: ANTERIOR CIRCULATION: Right internal carotid artery: Intracranial segment is patent with no significant stenosis. No aneurysm. Right middle cerebral artery: No occlusion or significant stenosis. No aneurysm. Right anterior cerebral artery: No occlusion or significant stenosis. No aneurysm. Left internal carotid artery: Intracranial segment is patent with no significant stenosis. No aneurysm. Left middle cerebral artery: No occlusion or significant stenosis. No aneurysm. Left anterior cerebral artery: No occlusion or significant stenosis. No aneurysm. POSTERIOR CIRCULATION: Right vertebral artery: No occlusion or significant stenosis. No aneurysm. Left vertebral artery: No occlusion or significant stenosis. No aneurysm. Basilar artery: No occlusion or significant stenosis. No aneurysm. Right posterior cerebral artery: No occlusion or significant stenosis. No aneurysm. Left posterior cerebral artery: No occlusion or significant stenosis. No aneurysm. Veins: Visualized venous sinuses show normal flow with no evidence of thrombosis. The superior sagittal and inferior sagittal sinuses are unremarkable. Transverse sinuses and sagittal sinuses are unremarkable. No intracranial mass lesion. Brain: Cerebrum is unremarkable. Neumann-white matter differentiation is intact. No mass lesion is seen. No mass effect or midline shift. Thalamus is unremarkable. No evidence of hemorrhage. Cerebellum is unremarkable. No posterior fossa mass lesion or mass effect. No pathologic edema. No evidence of cerebellar hemorrhage. Cerebral ventricles: No ventriculomegaly. Bones/joints: Unremarkable. No acute fracture. Soft tissues: Unremarkable. Other findings: No areas of abnormal enhancement after contrast administration. IMPRESSION: No evidence of vascular pathology. PROCEDURE INFORMATION: Exam: CTA Neck With Contrast Exam date and time: 08/24/2023 9:28 PM Age: 68 years old Clinical indication: Other: Gargled speech, AMS, stroke TECHNIQUE: Imaging protocol: Computed tomographic angiography of the neck with contrast. Exam focused on the cervical segments of the vasculature. 3D rendering (Not supervised by radiologist): MIP and/or 3D reconstructed images were created by the technologist. Contrast material: OMNI 350; Contrast volume: 100 ml; Contrast route: INTRAVENOUS (IV); COMPARISON: CT BRAIN NECK CTA 02/19/2021 3:07 PM FINDINGS: Right common carotid artery: No stenosis. No dissection or occlusion. Right internal carotid artery: No stenosis of the extracranial segment. No dissection or occlusion. Right external carotid artery: No occlusion or stenosis of the origin. Left common carotid artery: No stenosis. No dissection or occlusion. Left internal carotid artery: Atherosclerotic calcifications are seen in left proximal ICA. No evidence significant of stenosis. Distal left ICA luminal diameter measures 5 mm grade Left external carotid artery: No occlusion or stenosis of the origin. Right vertebral artery: No stenosis. No dissection or occlusion. Left vertebral artery: No stenosis. No dissection or occlusion. Soft tissues: Normal. No significant soft tissue swelling. Bones/joints: Degenerative disc disease and facet arthropathy at multiple levels in cervical spine with areas of degenerative canal and neural foraminal narrowing which appear chronic. IMPRESSION: No evidence of vascular stenosis by NASCET criteria. REFERENCES: NASCET CRITERIA. The degree of stenosis in the cervical segment of the internal carotid artery is based on NASCET criteria. Normal is no stenosis. Mild is less than 50% stenosis. Moderate is 50-69% stenosis. Severe is 70% to 99% stenosis. Total occlusion is no detectable patent lumen. Dictated and Authenticated by: Shannon Griffin MD. Ordering:NAYELY Krueger MD
[2023-08-24 22:18] LABS: ALT 35 U/L (14-59); AST 22 U/L (15-37); Albumin 3.3 g/dL (3.4-5.0); Alkaline Phosphatase 123 U/L (46-116); Anion Gap 9.4 mmol/L (3-11); BUN 10 mg/dL (7-18); Bilirubin, Total 0.5 mg/dL (0.2-1.0); CO2 25.6 mmol/L (21.0-32.0); CREATININE 0.6 mg/dL (0.55-1.02); Calcium 9.1 mg/dL (8.5-10.1); Chloride 102 mmol/L (98-107); Glucose 67 mg/dL (74-106); Magnesium 1.5 mg/dL (1.8-2.4); Sodium 137 mmol/L (136-145); TSH (W/Ref FT4) 1.78 uIU/mL (0.36-3.74); Total Protein 6.1 g/dL (6.4-8.2)
[2023-08-24 22:18] LABS: Bacteria Rare HPF (Negative); C & S Indicated? No; Casts Negative LPF (Negative); Crystals Negative HPF (Negative); Epithelial Cells Rare HPF (Negative); Mucus Negative (Negative); RBC 0-2 HPF (0-2); WBC 0-2 HPF (0-5)
[2023-08-24 22:27] LABS: ETHANOL BLOOD < 3.0 mg/dL (<10)
[2023-08-24] MEDS: MAGNESIUM SULFATE 2 GM/50 ML BAG IVINF (22:49)
[2023-08-24] MEDS: Dextrose 50%-Water 25 GM/50 ML SYR IVP (22:50)
[2023-08-24] MEDS: POTASSIUM CHLORIDE 10 MEQ/100 ML BAG 100 MEQ IVINF (22:50)
--- NOTE | 2023-08-24 23:16 | W.PM.HP.N ---
Date of service: 08/24/23 Time of Service: 23:16 Assessment and Plan Assessment and plan (1) Encephalopathy: Status: Acute Assessment and plan: while this was the working dx by the teleneurologist and the ED provider, she really does not seem encephalopathic to me. She know she is in the hospital, knows that the hospital is in [facility], knows the month and year (she was slightly off on the month in that she thought that it was still July but she realized that it had come to the end of the month and indicated that is a tricky answer), she also recognizes that she was brought to the hospital because she was not acting right. She is still having difficulty completing her thoughts and starts out expressing herself but then either can not finish her sentence or ends w/ something that is unrelated. It is my impression that she may have had either TIA ( I would score her ABCD2 at a 6) or she did have another thalamic CVA. She has been chronically on Plavix and moderate dose atorvastatin (40 mg), but has not been on an aspirin. Unclear as to why she was kept on Plavix and not kept on ASA after her intial 30 days of DAPT. I doubt that this is an encephalitic process or mass or a vasculitis, as her symptoms have improved so quickly, she has not been febrile, not had headache or neck pains. I will get MRI brain w/ and w/out tomorrow, along w/ echo w/ bubble study, she already has had CTA head and neck so we know she does not have any large vessel thrombosis. I will also check CRP, ESR, ELIZABETH for completeness. I will also get updated lipid panel and glycohemoglobin A1C. Last lipid was done in May 25, 2023 and was very well controlled (LDL 56, total 137, HDL 69, TG 63), although I did increase her to high dose atorvastatin, we may actually may need to decrease her home dose a bit as long as LDL remains <70. Her last HbA1c was a year ago 09/15/22 and was 5.5%. I will ask [employer] to evaluate her communications skills and ask P.T. to evaluate regarding dc planning. I will also ask MH to see her and give us input as to her baseline cognitive function since they know her best. (2) Expressive aphasia: Status: Acute (3) Tardive dyskinesia: Status: Acute (4) Hypomagnesemia: Status: Acute Assessment and plan: 1.5, will give 2 gm intravenous tonight and recheck in the a.m., may need to go on oral supplementation (5) Hypokalemia: Status: Acute Assessment and plan: given 10 meq KCL intravenously, will give additional doses both IV and oral and recheck in the a.m. 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 EMS was called this afternoon to evaluate her when her [employer] worker had called her and noted her to have dysarthric speech. Call to patient by [facility] was at 1600 and unclear as to why her arrival was not until 20:51. But EMS reports that they got the call 45 minutes prior to patient's arrival to [facility]. On arrival nursing noted patient moved all extremities to command but speech was difficult to understand however patient is edentulous. The E.D. provider noted that patient seemed to have trouble lifting left leg off the bed but had intact sensation in left leg and patient had weak hand squeeze on the left but either would not or could not lift left arm off the bed. Patient was noted to have some dyskinesia w/ lip smacking, pill rolling but also was noted to have tremors in both hands. Stroke protocol was followed and CT head and CTA head and neck were performed. This showed no focal hemodynamically significant stenosis, no cerebral or cerebellar hemorrhage or edema and no areas of abnormal enhancement after contrast was given. Labs included CBC, CMP, magnesium, TSH,UA, P.T., aPTT, urine tox screen (negative). The only remarkable findings were glucose 67 (note, ED provider indicated that EMS reported glucose >100 in the field), her glucose was treated w/ D50 in the E.D. Low Mg++ of 1.5 (not treated) and K+ 3.0 (treated w/ 10 meq KCl iv x one dose). Tele-neurology consult was obtained w/ [facility]. I do not have their report but the E.D. provider tells me that their impression was that while a CVA could not be ruled out, encephalopathy was more likely the etiology of her symptoms. The hospitalist service was asked to admit her for further neurologic and/or mental health evaluation. It was unclear as to how much of her behavior related to her schizoaffective disorder but the E.D. provider did talk tonight w/ some workers at [facility] who know the patient and indicated this is not her normal behavior. Upon review of the chart from January 2021, it sounds as if her presentation then is very similar to her presenting symptoms now (confusion, expressive aphasia, non-sequitur speech however her presentation in Jan 2021 was complicated by fact she inadvertently took an extra dose of her clozapine and buproprion) Patient eventually was diagnosed w/ left thalamic pulvinar CVA per MRI of her brain and was put on DAPT. However she did experience some psychosis during this admission and required transfer to [facility] while her psychiatric medications were adjusted. She eventually came back to [facility] for swing bed status from 04/01/21 to 04/07/21. Today her symptoms allegedly included left sided weakness, expressive aphasia, ?dysarthria. Her tardive dykinesia symptoms have been present before and were documented during her stay in February 15 to February 23, 2021 and again March 2021. Patient will be admitted to med/surg on telemetry w/ neurologic monitoring, check MRI brain w/ and w/out to rule out stroke, r/o acute demyelinating disease, encephalitis. However, per my exam tonight her symptoms have already improved. See my exam notes. Review of Systems All systems reviewed & are unremarkable except as noted in HPI and below PFSH All Active Problems Expressive aphasia (Acute) Tardive dyskinesia (Acute) Encephalopathy (Acute) Dysarthria (Acute) Difficulty comprehending speech (Acute) Hypomagnesemia (Acute) Hypokalemia (Acute) Acute alteration in mental status (Acute) PVD (peripheral vascular disease) (Chronic) Malaise (Acute) Low back pain (Acute) Elevated serum alkaline phosphatase level (Acute) Dystrophia unguium (Acute) Peripheral edema (Acute) Left knee pain (Acute) History of total left hip replacement (Acute 11/11/21) Schizoaffective disorder (Acute) Chronic diarrhea (Acute) Diarrhea (Chronic 05/15/12) h/o collagenous colitis 2009 on colonoscopy Edentulous (Acute 10/17/13) 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 MRSA (methicillin resistant staph aureus) culture positive (Acute 04/04/13) Hyponatremia (Acute 03/24/94) Abnormal weight loss (Acute 06/21/12) Hydradenitis (Acute) in rt upper thigh region Rash (Acute) Leg swelling (Acute) Bilateral knee pain (Acute) Left knee DJD (Chronic) Most recent injection: 08/30/22; 05/27/2021; 08/18/20; 03/31/2020 Hematuria (Acute) Thoracic aortic aneurysm (Acute) 4.[address] from 09/[address] from 10/2021 Lethargy (Acute) AMS (altered mental status) (Acute) Depression (Chronic) Hypokalemia (Acute) Hypomagnesemia (Acute) Schizoaffective disorder (Chronic) Discharge planning issues (Acute) DVT prophylaxis (Acute) Acute CVA (cerebrovascular accident) (Acute) CVA (cerebral vascular accident) (Chronic) Rash (Acute) Dry skin (Acute) Status post right hip replacement (Acute 08/05/21) Medical History GERD (gastroesophageal reflux disease) Urge urinary incontinence Osteoarthritis Hypothyroidism Folliculitis Hx of malignant neoplasm of vagina Hx MRSA infection Surgical History History of hip replacement Colonoscopy - MAC (02/14/17) Colonoscopy - MAC (01/12/11) Social History Smoking/Tobacco Use Status: Current-Occasional Tobacco Type: cigarettes Smoking risk assessment performed?: Yes Alcohol Intake: current Alcohol Intake frequency: holidays/special occasions only Drug use: Never Substance use type: does not use Housing: apartment Current gender identity: female Do you feel safe at home: Yes Do you feel safe in your relationship?: Yes Meds Allergies and Home Medications Allergies Allergy/AdvReac Type Severity Reaction Status Date / Time chlorpheniramine Allergy Unknown Verified 08/24/23 21: erythromycin base Allergy Unknown Verified 08/24/23 21:17 Penicillins Allergy Rash Verified 08/24/23 21:17 Home Medications Medication Instructions Recorded Confirmed Type bupropion HCl 100 mg tablet,12 hr 100 mg PO QAM #30 tabs 04/07/21 08/24/23 Rx sustained-release acetylcysteine 600 mg capsule (NAC) 1,200 mg PO BID 07/15/21 08/24/23 History ascorbate calcium (vitamin C) 500 500 mg PO DAILY 07/15/21 08/24/23 History mg tablet melatonin 3 mg capsule 3 mg PO HS PRN 07/15/21 08/24/23 History omega [id number] oil 100 1 cap PO DAILY 07/15/21 08/24/23 History mg-160 mg-1,000 mg capsule (Fish Oil) Bedside Commode #1 ea 08/03/21 08/03/23 Rx Raised Toilet Seat #1 ea 08/03/21 08/03/23 Rx lorazepam 0.5 mg tablet 0.5 tab PO BID PRN 11/10/21 08/24/23 History acetaminophen 500 mg tablet 1,000 mg (2 x 500 mg) PO TID #90 11/11/21 08/24/23 Rx tabs levothyroxine 88 mcg tablet 88 mcg PO DAILY #90 tabs 11/29/22 08/24/23 Rx loratadine 10 mg tablet 10 mg PO DAILY #90 tabs 11/29/22 08/24/23 Rx atorvastatin 40 mg tablet 40 mg PO QPM #90 tabs 02/21/23 08/24/23 Rx cholecalciferol (vitamin D3) 25 25 mcg PO DAILY 03/03/23 08/24/23 History mcg (1,000 unit) capsule clozapine 25 mg tablet 25 mg PO DAILY 03/03/23 08/24/23 History calcium carbonate 600 mg-vitamin 1 tab PO DAILY #90 tabs 03/21/23 08/24/23 Rx D3 10 mcg (400 unit) chewable tablet (Calcium 600 with Vitamin D3) famotidine 20 mg tablet 20 mg PO DAILY #90 tabs 04/20/23 08/24/23 Rx multivitamin with minerals-ferrous 1 tab PO DAILY #100 tabs 04/27/23 08/24/23 Rx sulfate 4.5 mg iron tablet (One Daily Multivitamins with Minerals) psyllium husk 0.4 gram capsule 0.4 g PO DAILY #90 caps 05/11/23 08/24/23 Rx (Metamucil) clopidogrel 75 mg tablet 75 mg PO DAILY #90 tabs 08/08/23 08/24/23 Rx Exam Narrative Exam Narrative: Yaima is alert, she is oriented to person, place ([facility], [facility]), time (month and year) and circumstances HEENT: she is edentulous, her speech is not dysarthric but very understandable, however, she has trouble completing her thoughts and finishing her sentences, she looks around the room, rolls her eyes as she thinks about what she wants to say, she has no facial asymmetry, tongue is midline and moves equally from side to side, normal palate movement; normal EOMI, normal PERRLA, normal gross VF by confrontation and finger counting Neck: supple, no bruits, no JVD, nontender w/out rigidity or stiffness, no adenopathy or goiter LUngs: clear Heart: RRR, no murmur or rub or gallop Abdomen: no scars, normal bowel sounds, nontender, nondistended, no organomegaly Extremities: she has OA swelling particularly her left knee but not hot or red, she has normal ROM and strength in both UE and both LE, pedal pulses intact, strong Neuro: no CN deficits, normal strength and ROM as noted above. normal sensation to light touch and pin prick over face, arms, legs; Babinski difficult to tell as she had strong withdrawal of both of her feet to stimulation; speech as noted above. Results Imaging Imaging Studies: PROCEDURE INFORMATION: Exam: CTA Head With Contrast, Arteriography Exam date and time: 08/24/2023 9:28 PM IMPRESSION: No evidence of vascular pathology. PROCEDURE INFORMATION: Exam: CTA Neck With Contrast Exam date and time: 08/24/2023 9:28 PM IMPRESSION: No evidence of vascular stenosis by NASCET criteria. Labs 08/24/23 21:42 08/24/23 21:42 Labs: Laboratory Results - last 24 hr 08/24/23 08/24/23 21:42 21:56 WBC 8.32 RBC 4.01 Hgb 12.4 Hct 36.8 MCV 92 MCH 30.9 MCHC 33.7 RDW 12.5 Plt Count 240 MPV 9.5 Immature Gran % 0.1 Neutrophils % 63.8 Lymphocytes % 24.5 Monocytes % 8.8 Eosinophils % 2.2 Basophils % 0.6 Nucleated RBC % 0.0 Absolute Neutrophils 5.31 Absolute Lymphocytes 2.04 Absolute Monocytes 0.73 Absolute Eosinophils 0.18 Absolute Basophils 0.05 PT 11.1 INR 1.1 APTT 27.0 Sodium 137 Potassium 3.0 L Chloride 102 Carbon Dioxide 25.6 Anion Gap 9.4 BUN 10 Creatinine 0.6 Est GFR (CKD-EPI 2020) 97.10 Glucose 67 L Calcium 9.1 Magnesium 1.5 L Total Bilirubin 0.5 AST 22 ALT 35 Alkaline Phosphatase 123 H Total Protein 6.1 L Albumin 3.3 L TSH 1.78 Urine Color Yellow Urine Clarity Clear Urine pH 7.0 Ur Specific [place] 1.010 Urine Protein Negative Urine Ketones Negative Urine Blood Trace-intact H Urine Nitrite Negative Urine Bilirubin Negative Urine Urobilinogen 0.2 Ur Leukocyte Esterase Negative Urine RBC 0-2 Urine WBC 0-2 Ur Epithelial Cells Rare Urine Crystals Negative Urine Bacteria Rare Urine Casts Negative Urine Mucus Negative Ur Culture Indicated? No Urine Glucose Negative Ethyl Alcohol < 3.0 Last Vital Signs Temp 36.3 C L 08/24/23 20:51 Pulse 118 H 08/24/23 22:16 Resp 19 08/24/23 22:16 BP 149/99 H 08/24/23 22:16 Pulse Ox 95 08/24/23 22:16 Time Spent Time spent with Patient: >75 minutes Time was spent: preparing to see the patient(eg.review tests), obtaining and/or reviewing separately otained hiistory, ordering medications,tests, procedures, referring, communicating with other health home care scheduler, indepentently interpreting results, counseling the patient and care coordination
[2023-08-24 23:39] LABS: Troponin I < 50 ng/L (< or =60)
[2023-08-24 23:45] LABS: *AMPHETAMINES SCREEN URINE Negative (Negative); *BARBITURATES SCREEN URINE Negative (Negative); *BENZODIAZEPINES SCREEN URINE Negative (Negative); Cannabinoids THC Negative (Negative); Cocaine Screen,Urine Negative (Negative); METHADONE URINE SCREEN Negative (Negative); OPIATES URINE SCREEN Negative (Negative)
[2023-08-24 23:46] LABS: Tricyclic Antidepressants Negative (Negative)
[2023-08-24 23:56] LABS: Lab Add On Test DONE
[2023-08-25 00:06] VITALS: BP 139/88; PULSE 67; RESP 22; TEMP 36.5; O2SAT 98
[2023-08-25 00:10] LABS: Ammonia 17 umol/L (11-32)
[2023-08-25 00:45] VITALS: BP 126/92; PULSE 63; RESP 18; TEMP 36.3; O2SAT 96
[2023-08-25] MEDS: Aspirin 81 MG CHEW 324 MG CH (00:48)
[2023-08-25] MEDS: Potassium Chloride Liquid 20 MEQ PKT PO (01:10)
[2023-08-25] MEDS: Normal Saline Flush 10 ML SYR IVP ×5 (01:39→21:59)
[2023-08-25] MEDS: POTASSIUM CHLORIDE 10 MEQ/100 ML BAG 100 MEQ IVINF ×2 (01:39→02:55)
[2023-08-25] MEDS: Atorvastatin 40 MG TAB 80 MG PO ×2 (01:40→20:07)
[2023-08-25] MEDS: Clopidogrel 300 MG TAB PO (01:40)
[2023-08-25 03:00] VITALS: BP 130/61; PULSE 66; RESP 17; TEMP 37.3; O2SAT 97
[2023-08-25] MEDS: Levothyroxine 88 MCG TAB PO (05:54)
[2023-08-25 06:26] LABS: ESR 3 mm/hr (0-30)
[2023-08-25 06:28] LABS: Abs Immature Grans 0.01 10^3/uL (0.0-0.06); Absolute Basophil Count 0.05 10^3/uL (0.0-0.2); Absolute Eosinophil Count 0.17 10^3/uL (0.0-0.7); Absolute Lymphocyte Count 1.65 10^3/uL (1.2-3.4); Absolute Monocyte Count 0.76 10^3/uL (0.1-0.8); Absolute Neutrophil Count 5.18 10^3/uL (1.2-6.7); Basophils % 0.6 %; Eosinophils % 2.2 %; HCT 37.5 % (36.0-46.0); HGB 12.7 g/dL (11.2-15.7); Immature Grans % 0.1 %; Lymphocytes % 21.1 %; MCH 30.6 pg (27.0-33.0); MCHC 33.9 % (32.0-36.0); MCV 90 fL (80-95); MPV 9.7 fL (8.0-11.0); Monocytes % 9.7 %; Neutrophils % 66.3 %; Platelet Count 252 10^3/uL (130-400); RBC 4.15 10^6/uL (3.93-5.22); RDW 12.5 % (11.7-14.6); RDW-SD 41.2 fL; WBC 7.82 10^3/uL (4.4-10.8)
[2023-08-25 06:43] LABS: Anion Gap 9.2 mmol/L (3-11); BUN 7 mg/dL (7-18); CO2 23.8 mmol/L (21.0-32.0); CREATININE 0.6 mg/dL (0.55-1.02); Calcium 9.1 mg/dL (8.5-10.1); Chloride 108 mmol/L (98-107); Glucose 86 mg/dL (74-106); Magnesium 1.9 mg/dL (1.8-2.4); Potassium 3.6 mmol/L (3.5-5.1); Sodium 141 mmol/L (136-145)
[2023-08-25 06:44] LABS: C-Reactive Protein < 0.50 mg/dL (<or=0.5)
[2023-08-25 07:05] LABS: Hemoglobin A1C 5.8 % (<5.7)
[2023-08-25 07:19] LABS: Calculated LDL 48 mg/dL (<100); Cholesterol 117 mg/dL (<200); HDL Cholesterol 56 mg/dL (40-60); Triglyceride 65 mg/dL (<150)
[2023-08-25 07:38] VITALS: BP 118/71; PULSE 70; RESP 18; TEMP 36.6; O2SAT 97
--- NOTE | 2023-08-25 08:00 | DI.MRI_ITS ---
Exam(s) MR BRAIN WO/W EXAM: MR BRAIN WO/W CLINICAL HISTORY: encephalopathy. TECHNIQUE: Multiplanar multisequence MRI of the brain was performed. CONTRAST MATERIAL: IV Contrast: 15 ML of Dotarem contrast administered. COMPARISON: MR MR BRAIN WO from 04/05/2022 FINDINGS: Exam is limited by motion. VENTRICLES AND EXTRA AXIAL SPACES: Normal in size and morphology for the patient's age. HEMORRHAGE: None. CEREBRAL PARENCHYMA: No focus of restricted diffusion to suggest acute infarct. No space-occupying le felicia identified. Mild atrophy. MIDLINE SHIFT: None. BRAINSTEM/CEREBELLUM: Normal. CALVARIUM: Normal. ENHANCEMENT: No suspicious enhancement identified. VISUALIZED PARANASAL SINUSES/MASTOIDS: Mild mucous retention at the floor of the left maxillary sinus . Orbits: Unremarkable. Pituitary: Normal. Vasculature: Normal flow voids. IMPRESSION: Exam mildly limited by motion. No acute abnormality identified. DATA REPOSITORY:
[2023-08-25] MEDS: Omega-3 Fatty Acids 1000 MG CAP PO (08:01)
[2023-08-25] MEDS: Cholecalciferol (Vitamin D3) 1,000 UNIT TAB 1000 UNITS PO (08:02)
[2023-08-25] MEDS: Multivitamin w/Minerals TAB 1 TAB PO (08:02)
[2023-08-25] MEDS: buPROPion-CR 100 MG TABCR PO (08:02)
[2023-08-25] MEDS: Calcium 600mg/Vit D 200U TAB 1 TAB PO (08:02)
[2023-08-25] MEDS: Clopidogrel 75 MG TAB PO (08:02)
[2023-08-25] MEDS: Aspirin E.C. 81 MG TABEC PO (08:03)
[2023-08-25] MEDS: Ascorbic Acid 500 MG TAB PO (08:03)
[2023-08-25] MEDS: Acetylcysteine 600 MG CAP 1200 MG PO ×2 (08:03→20:06)
[2023-08-25] MEDS: Famotidine 20 MG TAB PO (08:03)
[2023-08-25] MEDS: Polyethylene Glycol 3350 17 GM PACKET PO (08:03)
[2023-08-25] MEDS: Psyllium PKT 1 EACH PO (08:05)
--- NOTE | 2023-08-25 09:58 | W.PM.PROGNOT ---
Date of Service Date of service: 08/25/23 Time of Service: 09:58 Assessment and Plan Assessment and plan (1) Encephalopathy: Status: Acute Assessment and plan: -seen by teleneurologist and the ED provider; agree with admitting physician that patient does not appear encephalopathic at this time as she remains oriented x4 -She is still having difficulty completing her thoughts and starts out expressing herself but then either can not finish her sentence or ends w/ something that is unrelated. -agree with admitting physician that this is either TIA ( I would score her ABCD2 at a 6) or she did have another thalamic CVA. -has been taking plavix and statin, but was not on asa -denies headache or neck pain/stiffness, also with leukocytosis or fever, meningitis/encephalitis unlikely -f/u MRI brain w/ and w/out and TTE w/ bubble study without acute findings -CTA head w/o any large vessel thrombosis. -CRP, ESR negative -ELIZABETH pending -lipid panel and A1c WNL -PT rec home with home health/PT services -f/u to see her and give us input as to her baseline cognitive function since they know her best. (2) Expressive aphasia: Status: Acute Assessment and plan: -as noted above (3) Tardive dyskinesia: Status: Acute (4) Hypomagnesemia: Status: Acute Assessment and plan: -1.5 in ED -s/p 2 gm intravenous on admission -1.9 on AM 5/ (5) Hypokalemia: Status: Acute Assessment and plan: -s/p 10 meq KCL intravenously in ED and additional doses on admission -3.6 on AM 08/24 (6) Acute alteration in mental status: Status: Acute Assessment and plan: -as noted above (7) Schizoaffective disorder: Status: Acute Assessment and plan: continue home meds of clozapine and buproprion Qualifiers: Schizoaffective disorder type: unspecified Qualified Code(s): F25.9 - Schizoaffective disorder, unspecified Subjective Subjective Interval history since last seen: Patient continues to express difficulty expressing herself. She understands that she is in the hospital and has no other complaints or concerns at this time. Exam Narrative Exam Narrative: Chronically ill appearing older female sitting up at the edge of the bed in no acute distress, AOx4, heart RRR, lungs CTAB, abdomen soft, non-tender, non-distended, normal strength and sensation in bilateral upper and lower extremities, hyperkinetic movements noted, consistent with previously documented tardive dyskinesia, slow speech, difficulty completing thoughts but remains oriented to person, place, time, and situation Objective Last Vital Signs Temp 97.9 F 08/25/23 07:38 Pulse 70 08/25/23 07:38 Resp 18 08/25/23 07:38 BP 118/71 08/25/23 07:38 Pulse Ox 97 08/25/23 07:38 Laboratory Results - last 24 hr 08/24/23 08/24/23 08/24/23 21:42 21:56 23:52 WBC 8.32 RBC 4.01 Hgb 12.4 Hct 36.8 MCV 92 MCH 30.9 MCHC 33.7 RDW 12.5 Plt Count 240 MPV 9.5 Immature Gran % 0.1 Neutrophils % 63.8 Lymphocytes % 24.5 Monocytes % 8.8 Eosinophils % 2.2 Basophils % 0.6 Nucleated RBC % 0.0 Absolute Neutrophils 5.31 Absolute Lymphocytes 2.04 Absolute Monocytes 0.73 Absolute Eosinophils 0.18 Absolute Basophils 0.05 ESR PT 11.1 INR 1.1 APTT 27.0 Sodium 137 Potassium 3.0 L Chloride 102 Carbon Dioxide 25.6 Anion Gap 9.4 BUN 10 Creatinine 0.6 Est GFR (CKD-EPI 2020) 97.10 Glucose 67 L Hemoglobin A1c Calcium 9.1 Magnesium 1.5 L Total Bilirubin 0.5 AST 22 ALT 35 Alkaline Phosphatase 123 H Ammonia 17 Troponin I < 50 C-Reactive Protein Total Protein 6.1 L Albumin 3.3 L Triglycerides Total Cholesterol LDL Cholesterol, Calc HDL Cholesterol TSH 1.78 Urine Color Yellow Urine Clarity Clear Urine pH 7.0 Ur Specific [place] 1.010 Urine Protein Negative Urine Ketones Negative Urine Blood Trace-intact H Urine Nitrite Negative Urine Bilirubin Negative Urine Urobilinogen 0.2 Ur Leukocyte Esterase Negative Urine RBC 0-2 Urine WBC 0-2 Ur Epithelial Cells Rare Urine Crystals Negative Urine Bacteria Rare Urine Casts Negative Urine Mucus Negative Ur Culture Indicated? No Urine Glucose Negative Urine Opiates Screen Negative Urine Methadone Screen Negative Ur Barbiturates Screen Negative Ur Tricyclics Screen Negative Ur Amphetamines Screen Negative U Benzodiazepines Scrn Negative Urine Cocaine Screen Negative Ur THC Screen Negative Ethyl Alcohol < 3.0 Add-On Test Request DONE 08/25/23 08/25/23 05:35 06:15 WBC 7.82 RBC 4.15 Hgb 12.7 Hct 37.5 MCV 90 MCH 30.6 MCHC 33.9 RDW 12.5 Plt Count 252 MPV 9.7 Immature Gran % 0.1 Neutrophils % 66.3 Lymphocytes % 21.1 Monocytes % 9.7 Eosinophils % 2.2 Basophils % 0.6 Nucleated RBC % 0.0 Absolute Neutrophils 5.18 Absolute Lymphocytes 1.65 Absolute Monocytes 0.76 Absolute Eosinophils 0.17 Absolute Basophils 0.05 ESR 3 PT INR APTT Sodium 141 Potassium 3.6 Chloride 108 H Carbon Dioxide 23.8 Anion Gap 9.2 BUN 7 Creatinine 0.6 Est GFR (CKD-EPI 2020) 97.10 Glucose 86 Hemoglobin A1c 5.8 H Calcium 9.1 Magnesium 1.9 Total Bilirubin AST ALT Alkaline Phosphatase Ammonia Troponin I C-Reactive Protein < 0.50 Total Protein Albumin Triglycerides 65 Total Cholesterol 117 LDL Cholesterol, Calc 48 HDL Cholesterol 56 TSH Urine Color Urine Clarity Urine pH Ur Specific [place] Urine Protein Urine Ketones Urine Blood Urine Nitrite Urine Bilirubin Urine Urobilinogen Ur Leukocyte Esterase Urine RBC Urine WBC Ur Epithelial Cells Urine Crystals Urine Bacteria Urine Casts Urine Mucus Ur Culture Indicated? Urine Glucose Urine Opiates Screen Urine Methadone Screen Ur Barbiturates Screen Ur Tricyclics Screen Ur Amphetamines Screen U Benzodiazepines Scrn Urine Cocaine Screen Ur THC Screen Ethyl Alcohol Add-On Test Request Time Spent with Patient Time Spent with Patient: >50 minutes Time was spent: preparing to see the patient(eg.review tests), obtaining and/or reviewing separately otained hiistory, ordering medications,tests, procedures, referring, communicating with other health physician primary care sports medicine, indepentently interpreting results, counseling the patient and care coordination
[2023-08-25] MEDS: LORazepam 2 MG/ML VIAL 1 MG IVP ×2 (10:26→20:03)
--- NOTE | 2023-08-25 10:30 | DI.US_ITS ---
APPROVED REPORT EXAM: Comprehensive 2D, Doppler, and color-flow Echocardiogram Patient Location: In-Patient Room/Bed: 211 Surgical Dressing Maker: Wei Pisano RDCS (AE) Indications: TIA vs CVA, r/o PFO Echo Enhancing Agent Indication: Rule out Shunt Agent(s) / Amount(s) Used: Agitated Saline 10.0 cc Comments: Contrast study was performed with 1 IV injection of 10ccs of agitated normal saline at rest . Patient was unable to cooperate with maneuvers. Negative contrast study for shunt flow. Other Information Technically limited study due to uncooperative patient, inability to position patient. Conclusion Borderline concentric left ventricular hypertrophy. Ejection fraction is 60 to 65%. Wall motion is normal Normal right ventricular size and function Both atria are normal in size No intracardiac shunt is identified on injection of agitated saline Within the limits of the study there is no structural or hemodynamically significant valvular disease identified Wall motion Left Ventricle The left ventricle is normal size. The left ventricular systolic function is normal. The left ventric ular ejection fraction is within the normal range. Borderline concentric left ventricular hypertrophy . There is normal LV segmental wall motion. There is no ventricular septal defect visualized. LVEF is 60-65%. Right Ventricle The right ventricle is normal size. The right ventricular systolic function is normal. Atria The left atrium size is normal. The right atrium size is normal. The interatrial septum is intact wit h no evidence for an atrial septal defect. Saline bubble contrast intravenous injection does not demo nstrate PFO. Aortic Valve Number of aortic valve leaflets could not be assessed. There is no aortic valvular stenosis. No aorti c regurgitation is present. Mitral Valve The mitral valve is normal in structure. No evidence of mitral valve stenosis. Trace mitral regurgita tion. Tricuspid Valve The tricuspid valve is normal in structure. There is no tricuspid valve stenosis. Trace tricuspid reg urgitation. Unable to assess PA pressure. Pulmonic Valve The pulmonary valve is normal in structure. There is no pulmonic valvular stenosis. Mild pulmonic reg urgitation. Great Vessels The aortic root is normal in size. The ascending aorta is normal in size. Aortic arch is not well vis ualized. IVC is normal in size and collapses >50% with inspiration. Pericardium There is no pericardial effusion. 2D Dimensions IVSD d PLAX 1.05 cm F: 0.6-1.0 Ao Root d 2.68 cm F: 2.7 - 3.3 LVPW d PLAX 1.07 cm F: 0.6 - 1.0 Ao Asc Diam d 3.33 cm F: 2.3 - 3.1 LVID d PLAX 4.25 cm F: 3.8 - 5.2 LVDs 2.76 cm F: 2.2 - 3.5 LV EF Teichholz 64.6 % FS 34.97 % LV EDV (Teich) 80.8 mL LV ESV (Teich) 28.6 mL Stroke Vol Index (Teich) 28.06 Auto EF LV EDV A4C 82.2 mL LV EDV A2C 95.0 mL LV EDV BP 89.7 mL LV ESV A4C 33.2 mL LV ESV A2C 36.5 mL LV ESV BP 34.8 mL LVEF(%) A4C 59.7 % LVEF(%) A2C 61.6 % LVEF(%) BP 61.3 % LV SV A4C 49.1 ml LV SV A2C 58.6 ml LV SV BP 55.0 ml LV CO A4C 3.3 L/min LV CO A2C 4.6 L/min LV CO BP 4.0 L/min HR A4C 67.55 BPM HR A2C 79.26 BPM LV EDV Index (BP) LA Volume LA Length A4C 4.8 cm LA Length A2C 4.6 cm LA Area A4C s 10.32 cm2 LA Area A2C s 9.57 cm2 LA Vol A4C A-L 18.75 mL LA Vol A2C A-L 16.92 mL LA Vol Biplane A-L 18.2 mL LA Vol/BSA A4C A-L LA Vol/BSA A2C A-L LA Vol/BSA BP A-L 9.8 mL/m2 LA Vol A4C MOD 18.2 mL LA Vol A2C MOD 15.3 mL LA Vol BP MOD 17.0 mL RA Volume RA Area A4C 12.7 cm2 RA ESV A4C (A-L) 26.8mL RA Vol/BSA A4C A-L RA Length A4C 5.1 cm RA ESV A4C (MOD) 26.0mL LV Diastology MV E' medial 0.100 (>0.07 m/s) MV E Vmax 0.68 (0.4-1.3 m/s) MV E/E' MED 6.82 (<14) MV A Vmax 0.85 (0.4-1.3 m/s) MV E' lateral 0.101 (>0.1 m/s) E/A Ratio 0.8 MV E/E' LAT 6.73 (<14) MV E' Average 0.101 m/s MV E/E'(average) 6.78 Aortic Valve AoV Vmax 1.34 m/s LVOT Vmax 1.22 m/s AoV Peak Grad 7.2 mmHg LVOT Peak Grad 6.0 mmHg AoV Area (Vmax) 2.50 cm2 LVOT VTI 0.263 m AoV VTI 0.334 m LVOT Mean Grad 3.0 mmHg AoV Mean Xavier. 0.97 m/s LVOT SV 71.94 mL AoV Mean Grad 4.2 mmHg LVOT Diam s 1.85 cm AoV Area (VTI) 2.16 cm2 Velocity Ratio 0.91 Mitral Valve MV DT 195 (160-240 msec) Pulmonary Valve PV Vmax 0.80 (0.5-1.5 m/s) RVOT Vmax 0.57 m/s PV Peak Grad 2.6 mmHg RVOT Peak Gr. 1.3 mmHg PV Mean Xavier 0.49 m/s RVOT VTI 0.139 m PV Mean Grad 1.2 mmHg RVOT Mean Gr. 0.7 mmHg
[2023-08-25] MEDS: Gadoterate meglumine 20 ML SYRINGE 15 ML IVP (11:41)
--- NOTE | 2023-08-25 11:54 | PHA.REVIEW2 ---
Pharmacy Admission Review Admission Clinical Review Admission Pharmacy Review: Expressive aphasia (Acute) Tardive dyskinesia (Acute) Encephalopathy (Acute) Hypomagnesemia (Acute) Hypokalemia (Acute) Acute alteration in mental status (Acute) Schizoaffective disorder (Acute) chlorpheniramine Allergy (Verified 08/24/23 21:17) Unknown erythromycin base Allergy (Verified 08/24/23 21:17) Unknown Penicillins Allergy (Verified 08/24/23 21:17) Rash Resuscitation Status Full Code Height 5 ft 6 in Weight 73.696 kg Pharmacy Admission Review Renal Dosing Renal Dosing: BUN 7 mg/dL (7-18) 08/25/23 06:15 Creatinine 0.6 mg/dL (0.55-1.02) 08/25/23 06:15 Medications needing adjustments: Reviewed (crcl = 54, adjustments not needed) Anticoagulation Anticoagulation: Hgb 12.7 g/dL (11.2-15.7) 08/25/23 06:15 Hct 37.5 % (36.0-46.0) 08/25/23 06:15 Plt Count 252 10^3/uL (130-400) 08/25/23 06:15 INR 1.1 (0.9-1.1) 08/24/23 21:42 Creatinine 0.6 mg/dL (0.55-1.02) 08/25/23 06:15 DVT Prophylaxis: Reviewed (no chemical prophylaxis ordered - SCDs) Therapeutic Anticoagulation: Reviewed Medications: Aspirin (ASA 81 mg daily added (+ on clopidogrel)) Opiate Usage Evaluate Pain Scale/Pains Meds: N/A (not on opiates) Relevant Labs Relevant Labs: ESR 3 mm/hr (0-30) 08/25/23 05:35 Sodium 141 mmol/L (136-145) 08/25/23 06:15 Potassium 3.6 mmol/L (3.5-5.1) 08/25/23 06:15 Chloride 108 mmol/L (98-107) H 08/25/23 06:15 Magnesium 1.9 mg/dL (1.8-2.4) 08/25/23 06:15 C-Reactive Protein < 0.50 mg/dL (<or=0.5) 08/25/23 06:15 Electrolytes, C-Reactive P, ESR: Reviewed DM Control DM Control: Reviewed (no diabetes diagnosis. A1c = 5.8% today) Cardiac Review Cardiac Review: Troponin I < 50 ng/L (< or =60) 08/24/23 21:42 BP, HR, EF%: Reviewed QTc Review QTc: Reviewed (QTc = 420 08/24/23) List meds needing interventions: n/a IV to PO Switch IV Medications: Reviewed (1x dose of IV lorazepam otherwise all meds PO) Home Meds Home Med List reviewed: Reviewed (spoke w/[facility] Re: clozapine - pt has been filling consistently (dose = 125 mg qhs), currently due for fill, [facility] is waiting for lab work. [employer] Dispense Authorization obtained today (current ANC = 5.18)) Pharmacy Antibiotic Review Relevant Labs: Relevant Labs 08/25/23 06:15 C-Reactive Protein < 0.50
--- NOTE | 2023-08-25 13:00 | PT.INIE ---
PT Notes Visit Reasons: Acute Metabolic Encephalopathy Physical Therapy Inpatient Initial Evaluation Date: 08/25/2023 Referring Doctor: Italo Hemphill MD PT Orders: PT CONSULT: Safety Consult for D/C. Precautions: Fall. Standard precautions. Activity as tolerated. Patient Profile/Admitting Diagnosis: Yaima is a 68-year-old female with schizoaffective disorder and history of CVA in January now with diagnoses of encephalopathy from suspected TIA vs. thalamic CVA , expressive aphasia, tardive dyskinesia, hypomagnesmeia, hypokalemia, and acute AMS. Patient here for stroke work up and management of acute symptoms. PMHX: All Active Problems Expressive aphasia (Acute) Tardive dyskinesia (Acute) Encephalopathy (Acute) Dysarthria (Acute) Difficulty comprehending speech (Acute) Hypomagnesemia (Acute) Hypokalemia (Acute) Acute alteration in mental status (Acute) PVD (peripheral vascular disease) (Chronic) Malaise (Acute) Low back pain (Acute) Elevated serum alkaline phosphatase level (Acute) Dystrophia unguium (Acute) Peripheral edema (Acute) Left knee pain (Acute) History of total left hip replacement (Acute 11/11/21) Schizoaffective disorder (Acute) Chronic diarrhea (Acute) Diarrhea (Chronic 05/15/12) h/o collagenous colitis 2009 on colonoscopy Edentulous (Acute 10/17/13) 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 MRSA (methicillin resistant staph aureus) culture positive (Acute 04/04/13) Hyponatremia (Acute 03/24/94) Abnormal weight loss (Acute 06/21/12) Hydradenitis (Acute) in rt upper thigh region Rash (Acute) Leg swelling (Acute) Bilateral knee pain (Acute) Left knee DJD (Chronic) Most recent injection: 08/30/22; 05/27/2021; 08/18/20; 03/31/2020Hematuria (Acute) Thoracic aortic aneurysm (Acute) 4.[address] from 09/[address] from 10/2021 Lethargy (Acute) AMS (altered mental status) (Acute) Depression (Chronic) Hypokalemia (Acute) Hypomagnesemia (Acute) Schizoaffective disorder (Chronic) Discharge planning issues (Acute) DVT prophylaxis (Acute) Acute CVA (cerebrovascular accident) (Acute) CVA (cerebral vascular accident) (Chronic) Rash (Acute) Dry skin (Acute) Status post right hip replacement (Acute 08/05/21) Medical History GERD (gastroesophageal reflux disease) Urge urinary incontinence Osteoarthritis Hypothyroidism Folliculitis Hx of malignant neoplasm of vagina Hx MRSA infection Surgical History History of hip replacement Colonoscopy - [facility] (02/14/17) Colonoscopy - [facility] (01/12/11) Social History/Home Situation: Per CM VerónicaYaima still lives at home in an apartment in [place] and has received mental and psychiatric counseling locally.? Sister and friend Sherita have been very supportive. Equipment Owned/DME: FWW Subjective: Unable to fully express self but is able to follow single-step commands. No report of pain or discomfort throughout session. Needed to use bedside commode to void urine and stool. Objective: General Observation: Supine in bed.? Dyskinetic mostly in B UE and trunk. Mental Status: Alert and able to understand instcuctions, difficulty expressing self but able to respond if given enough time Pain: None reported ROM: Right Upper Extremity: Shoulder Flexion WFL. Shoulder abduction WFL. Elbow flexion WFL. Wrist flexion WFL. Functional opening and closing of hand WFL. Left Upper Extremity: Shoulder Flexion WFL. Shoulder abduction WFL. Elbow flexion WFL. Wrist flexion WFL. Functional opening and closing of hand WFL Right Lower Extremity: Hip flexion WFL. Hip abduction WFL. Knee flexion WFL. Ankle dorsiflexion WFL. Ankle plantarflexion WFL. Left Lower Extremity: Hip flexion WFL. Hip abduction WFL. Knee flexion WFL. Ankle dorsiflexion WFL. Ankle plantarflexion WFL. Strength: Right Upper Extremity: Shoulder flexors 4/5. Shoulder abductors 4/5. Elbow flexors 4/5. Elbow extensors 4/5. Freight Car Loader strong. Left Upper Extremity: Shoulder flexors 4/5. Shoulder abductors 4/5. Elbow flexors 4/5. Elbow extensors 4/5. Freight Car Loader strong. Right Lower Extremity: Hip flexors 4-/5. Hip abductors 4/5. Knee flexors 4/5. Knee extensors 4-/5. Ankle dorsiflexors 4-/5. Ankle plantarflexors 4-/5. Left Lower Extremity: Hip flexors 4-/5. Hip abductors 4/5. Knee flexors 4/5. Knee extensors 4-/5. Ankle dorsiflexors 4-/5. Ankle plantarflexors 4-/5. Bed Mobility/Transfers: Moderate to maximal verbal, tactile, and visual cueing provided for use of B hands as needed for support, movement sequence, AD management, and posture to reduce fall risk and minimize pain report Supine to sit standby assist Sit to supine standby assist Sit to stand contact guard assist Stand to sit? contact guard assist Bed to chair contact guard assist Gait: Instructed patient with level surface ambulation of 80 feet requiring conatct guard assist using front-wheeled walker mostly because she tends to let go of walker frequently initially.? Moderate to maximal verbal cues provided for safe walker management. Step-to gait pattern.? Balance: Static Sitting: Normal Dynamic Sitting: Normal Static Standing: Fair Dynamic Standing: Fair Special Tests: Mobility Limitations Standardized Measure [facility] 6 clicks Basic Mobility Inpatient Short Form: Raw Score: 21? CMS Score: 29% deficit? ? ? Informed Consent/Education:? Patient instructed in purpose of PT consult and plan of care. Agreeable to proceed with established PT POC to achieve personal goals. ASSESSMENT: Appeared able to walk a short distance without a walker. Will plan on assessing safety without walker in the net session. Encouraged use of FWW in room in the meantime for safety. Patient presents with clinical signs and symptoms consistent with current/admitting diagnoses that have resulted to mobility limitations, gait instability, generalized weakness, and overall ADL decline as demonstrated by the following impairment level findings: 1.? Decreased strength B UE/LE major muscle groups 2.? Impaired standing balance 3.? Impaired activity tolerance Impairments are contributing to the following functional limitations: 1.? Difficulty with ambulation without AD and conatct guard assist of 1 2.? Increased completion time for mobility ADL performance 3.? Increased risk for falls 4.? Difficulty with managing steps alone safely Patient is assessed as a [id number] moderate complexity based on the following: History: 65-year-old female with past medical history as indicated above Examination: Demonstrable impairment in strength, balance, and mobility level with underlying impairments and functional limitations as exhibited above as well as deficit score of 29% utilizing the [facility] Mobility Inpatient Short Form Presentation: Stable Decision Makin moderate complexity Goals: Goals X1 week 1. Supine-Sit independent 2. Sit-Supine independent 3. Sit-Stand independent 4. Stand-Sit independent 5. Bed-Chair independent 6. Chair-Bed independent 7. Independent gait on level surface with use of FWW for at least 300 feet without report of pain nor dyspnea 8. Independent stair negotiation while holding onto bilateral rails for at least 5 steps without report of pain nor dyspnea 9. Good static and dynamic standing balance/tolerance Plan of Care/Treatment Plan: Patient will highly benefit from skilled physical therapy services including functional mobility training, bed mobility/transfer training, gait and balance training, therapeutic exercises, therapeutic activity, caregiver/staff/family education and training 1x/day, 7 days/week x 1 week. Plan of care has been reviewed with the CHEMISTRY PROFESSOR providing the service under Physical Therapy direction. Initiate Physical Therapy intervention for strengthening, bed mobility, transfers, gait, stairs, balance training, use of assistive device. DISCHARGE RECOMMENDATIONS: Patient will benefit from home health PT services in order to progress mobility level using least restrictive assistive ambulatory device, assess home safety, identify additional equipment needs, and establish a functional maintenance program that will increase ability of patient to remain at home. TREATMENT CODE/TIME: 47746 x 25 minutes for 1 unit, 72250 x 23 minutes for 2 units (13:00-13:48). Thank you for the opportunity to participate in the care of this patient. Mabel Jordan PT, DPT, CLT [facility], [place]
--- NOTE | 2023-08-25 14:16 | PDOC.CMIN ---
Date of service: 08/25/23 Time of Service: 14:16 Care Management Initial Assmt Initial Assessment REASON FOR HOSPITALIZATION:: acute metabolic encephalopathy PREVIOUS FUNCTIONAL STATUS/SOCIAL/FAMILY SUPPORTS:: Yaima lives alone in an apartment in [facility]. She has a sister who is supportive, but does not live nearby. She has been connected with [facility] for over 20 years, both as an employee and a [employer] client. She currently has a provider at [facility], but is no longer in the [employer] program. Per report, she is independent at baseline with all ADLs, and communicates clearly. She receives [facility], and utilizes [facility] for transportation. CURRENT FUNCTIONAL STATUS:: Yaima was sitting up in her chair when CM met with her. She was pleasant, although she had difficulty finding words at times during the conversation, and expressed some frustration about her inability to communicate effectively at this time. She stated that she thinks she may have messed up her medications. She reported that she had an MRI earlier today, and was unsure of the results. Per MD, she is having a workup to rule out TIA/CVA. CM contacted [facility], who informed CM that she no longer receives [employer] SET UP OPERATOR services, but that she has a new community arts worker, Keli. [facility] also stated that Jazmine, [facility], has been a long time support for Yaima. CM will discuss this with Yaima to obtain consent to reach out to Keli and Jazmine. Ashlee at [facility] also stated that Yaima is not near her baseline. She stated that although Yaima sometimes has difficulty finding a word here and there, she communicates well overall, and is very independent. CM will continue to follow. ADVANCE DIRECTIVES:: HCA form on file; Shanice Acuna listed as HCA. Has patient been provided with info about the portal/API?: Yes Did the patient sign up for the portal?: No CODE STATUS:: Full Code INSURANCE COVERAGE / FINANCIAL ISSUES:: MCR. Financial assistance 100% CURRENT HOME/COMMUNITY SERVICES/EQUIPMENT:: [employer]. [facility]. Community case management. PRIMARY CARE PHYSICIAN:: Dillon Scott POTENTIAL DISCHARGE NEEDS:: Evaluations for further needs, follow up appointments. PATIENT/FAMILY EDUCATION NEEDS:: Review discharge instructions and limitations, discussion of self care needs including ask me three. ANTICIPATED BARRIERS TO DISCHARGE:: None identified. TRANSPORTATION:: private vehicle via [facility] PLAN:: Anticipate Yaima will return home once medically cleared. She will transport via private vehicle by [facility], coordinated by CM, when ready. She will follow up with her PCP and discharge plan of care. CM will continue to follow. [facility] All Active Problems Expressive aphasia (Acute) Tardive dyskinesia (Acute) Encephalopathy (Acute) Dysarthria (Acute) Difficulty comprehending speech (Acute) Hypomagnesemia (Acute) Hypokalemia (Acute) Acute alteration in mental status (Acute) PVD (peripheral vascular disease) (Chronic) Malaise (Acute) Low back pain (Acute) Elevated serum alkaline phosphatase level (Acute) Dystrophia unguium (Acute) Peripheral edema (Acute) Left knee pain (Acute) History of total left hip replacement (Acute 11/11/21) Schizoaffective disorder (Acute) Chronic diarrhea (Acute) Diarrhea (Chronic 05/15/12) h/o collagenous colitis 2008 on colonoscopy Edentulous (Acute 10/17/13) 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 MRSA (methicillin resistant staph aureus) culture positive (Acute 04/04/13) Hyponatremia (Acute 03/24/94) Abnormal weight loss (Acute 06/21/12) Hydradenitis (Acute) in rt upper thigh region Rash (Acute) Leg swelling (Acute) Bilateral knee pain (Acute) Left knee DJD (Chronic) Most recent injection: 08/30/22; 05/27/2021; 08/18/20; 03/31/2020 Hematuria (Acute) Thoracic aortic aneurysm (Acute) 4.[address] from 09/[address] from 10/2021 Lethargy (Acute) AMS (altered mental status) (Acute) Depression (Chronic) Hypokalemia (Acute) Hypomagnesemia (Acute) Schizoaffective disorder (Chronic) Discharge planning issues (Acute) DVT prophylaxis (Acute) Acute CVA (cerebrovascular accident) (Acute) CVA (cerebral vascular accident) (Chronic) Rash (Acute) Dry skin (Acute) Status post right hip replacement (Acute 08/05/21) Medical History GERD (gastroesophageal reflux disease) Urge urinary incontinence Osteoarthritis Hypothyroidism Folliculitis Hx of malignant neoplasm of vagina Hx MRSA infection Surgical History History of hip replacement Colonoscopy - [facility] (02/14/17) Colonoscopy - [facility] (01/12/11) Social History Smoking/Tobacco Use Status: Current-Occasional Tobacco Type: cigarettes Smoking risk assessment performed?: Yes Alcohol Intake: current Alcohol Intake frequency: holidays/special occasions only Drug use: Never Substance use type: does not use Housing: apartment Current gender identity: female Do you feel safe at home: Yes Do you feel safe in your relationship?: Yes SDOH(Care Management) Screening Will the Patient Participate in the Screening?: Unable to obtain
--- NOTE | 2023-08-25 14:52 | CHAPLAIN ---
Yaima and I remembered each other from her previous admission. Today she's having trouble getting out what she is thinking. She started a few sentence and then they trailed off. She did say she's tired and didn't get much sleep last. She's also concerned that's she's appeared rude to her nurses, and she doesn't want to be rude to anyone. The last admission, Yaima was living in an apartment. I don't know if that's still the case. I will continue to visit.
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
[2023-08-25 16:19] VITALS: BP 121/73; PULSE 72; RESP 17; TEMP 36.7; O2SAT 98
[2023-08-25 19:59] VITALS: BP 142/76; PULSE 76; RESP 20; TEMP 36.6; O2SAT 95
[2023-08-26] VITALS (7 sets, daily range): BP systolic 101–117; BP diastolic 54–80; PULSE 70–90; RESP 16–19; TEMP 36.2–36.9; O2SAT 92–97
[2023-08-26] MEDS: Levothyroxine 88 MCG TAB PO (05:31)
[2023-08-26] MEDS: Acetylcysteine 600 MG CAP 1200 MG PO ×2 (09:57→20:29)
[2023-08-26] MEDS: buPROPion-CR 100 MG TABCR PO (09:58)
[2023-08-26] MEDS: Calcium 600mg/Vit D 200U TAB 1 TAB PO (09:58)
[2023-08-26] MEDS: Multivitamin w/Minerals TAB 1 TAB PO (09:58)
[2023-08-26] MEDS: Omega-3 Fatty Acids 1000 MG CAP PO (09:58)
[2023-08-26] MEDS: Ascorbic Acid 500 MG TAB PO (09:58)
[2023-08-26] MEDS: Aspirin E.C. 81 MG TABEC PO (09:58)
[2023-08-26] MEDS: Clopidogrel 75 MG TAB PO (09:58)
[2023-08-26] MEDS: Normal Saline Flush 10 ML SYR IVP ×2 (09:58→20:29)
[2023-08-26] MEDS: Famotidine 20 MG TAB PO (09:58)
[2023-08-26] MEDS: Cholecalciferol (Vitamin D3) 1,000 UNIT TAB 1000 UNITS PO (09:58)
--- NOTE | 2023-08-26 11:18 | PDOC.CMPRO ---
Date of service: 08/26/23 Time of Service: 11:38 Care Management Progress Note Progress Note Text Progress Note Text: S/O: Yaima was sitting up in her chair when CM met with her. Her communication has greatly improved since yesterday afternoon when CM met with her. Yaima stated that she feels that she lost a day or two, and didn't recall the conversation that was had yesterday. She stated that her friend Sherita helps her with grocery shopping/errands, and also helps some around the house, but they had a disagreement about a week ago and Sherita told her that she is no longer going to help her. CM spoke to Keli, [employer] counseling case manager, who stated that Yaima and Sherita sometimes have disagreements, but they usually work it out. Keli also reported that Yaima has a med provider at [facility], but no other services. She does have her medications bubble packed by [facility]. Keli stated that in the last year Yaima has suffered the loss of her beloved dog, and her sister, Shanice, which has been a difficult adjustment for her. RITESH discussed home health nursing with Yaima, to help her manage her medications, which she is agreeable to. Per MD, Yaima has been restarted on her home medications and is showing improvement, with an anticipated discharge in 24-48hours. CM will continue to follow. A: Yaima is a 68 year old female admitted to [facility] on 08/24/23 with acute metabolic encephalopathy. P: Anticipate Yaima will return home once medically cleared. She will transport via private vehicle by [facility], coordinated by CM, when ready. She will follow up with her PCP and discharge plan of care. CM will continue to follow. SDOH(Care Management) Screening Will the Patient Participate in the Screening?: Unable to obtain
--- NOTE | 2023-08-26 11:45 | W.PM.PROGNOT ---
Date of Service Date of service: 08/26/23 Time of Service: 11:45 Assessment and Plan Assessment and plan (1) Encephalopathy: Status: Acute Assessment and plan: -seen by teleneurologist and the ED provider; agree with admitting physician that patient does not appear encephalopathic at this time as she remains oriented x4 -She is still having difficulty completing her thoughts and starts out expressing herself but then either can not finish her sentence or ends w/ something that is unrelated. -agree with admitting physician that this is either TIA ( I would score her ABCD2 at a 6) or she did have another thalamic CVA. -has been taking plavix and statin, but was not on asa -denies headache or neck pain/stiffness, also with leukocytosis or fever, meningitis/encephalitis unlikely -f/u MRI brain w/ and w/out and TTE w/ bubble study without acute findings -CTA head w/o any large vessel thrombosis. -CRP, ESR negative -ELIZABETH pending -lipid panel and A1c WNL -PT rec home with home health/PT services -given patient improvement while on her home medication regimen, and patient suggesting she may have missed some doses of her home medications leading to hospitalization, it appears this was all caused by medication misuse/missed dosages -if patient continues to improve, will likely be ready for discharge home with home health services tomorrow, 08/27/2023 (2) Expressive aphasia: Status: Acute Assessment and plan: -as noted above (3) Tardive dyskinesia: Status: Acute (4) Hypomagnesemia: Status: Acute Assessment and plan: -1.5 in ED -s/p 2 gm intravenous on admission -1.9 on AM 08/24 (5) Hypokalemia: Status: Acute Assessment and plan: -s/p 10 meq KCL intravenously in ED and additional doses on admission -3.6 on AM 08/24 (6) Acute alteration in mental status: Status: Acute Assessment and plan: -as noted above (7) Schizoaffective disorder: Status: Acute Assessment and plan: continue home meds of clozapine and buproprion Qualifiers: Schizoaffective disorder type: unspecified Qualified Code(s): F25.9 - Schizoaffective disorder, unspecified Subjective Subjective Interval history since last seen: Patient is able to clearly state that she is feeling better today and understands that her speech is much improved. Additionally, she is also able to recall that she may have missed a few doses of her psychiatric medications leading up to her hospitalization. Exam Narrative Exam Narrative: Chronically ill appearing older female sitting up at the edge of the bed in no acute distress, AOx4, heart RRR, lungs CTAB, abdomen soft, non-tender, non-distended, normal strength and sensation in bilateral upper and lower extremities, significant improvement in tardive dyskenesia and well as almost complete resolution of expressive aphasia as compared to previous days Objective Last Vital Signs Temp 97.3 F L 08/26/23 11:43 Pulse 86 08/26/23 11:43 Resp 17 08/26/23 11:43 BP 117/69 08/26/23 11:43 Pulse Ox 94 08/26/23 11:43 Time Spent with Patient Time Spent with Patient: >50 minutes Time was spent: preparing to see the patient(eg.review tests), obtaining and/or reviewing separately otained hiistory, ordering medications,tests, procedures, referring, communicating with other health managed care manager, indepentently interpreting results, counseling the patient and care coordination
--- NOTE | 2023-08-26 14:07 | CHAPLAIN ---
Yaima seems much more like herself today. She is speaking in complete sentences and able articulate what she wants. She said she knows that she wasn't being clear yesterday with her thoughts. According to the progress notes, Yaima may not have been taking some meds accurately. Yaima was looking for a phone manufacturing assistant, but I wasn't able to find one in any of the rooms.
--- NOTE | 2023-08-26 14:18 | PT.INTREAT ---
PT Notes Visit Reasons: Acute Metabolic Encephalopathy Date: 08/26/23 PRECAUTIONS: Fall. Standard. Activity as tolerated. SUBJECTIVE: pt in recliner when approached for therapy this morning, pt initially agreed to participate as long as we stayed in her room, pt in recliner when approached for therapy in the afternoon, agreed to participating with therapy. Objective: Vitals: monitored by nursing Pain: none reported Therapeutic Activities 63978: Direct one-on-one instruction in dynamic activities to improve functional performance. ?? BED MOBILITY/TRANSFERS? Rolling L/R: not performed Supine-sit: not performed ? Sit-supine: not performed? Sit-stand: ? supervision ? Stand-sit: ?? supervision? Bed-Chair:? ? supervision ? Chair-bed: supervision Provided skilled cues and instruction on performance and technique throughout. Gait Training 44522: Direct one-on-one instruction and skilled instruction in: Employing an assistive device Modified weight-bearing status Movement sequencing Turning and movement with proper form Provided verbal cues for equipment management and technique Provided instruction in gait pattern Patient education regarding pacing and breathing techniques to maximize activity tolerance? GAIT? Assistive Device: ?? FWW? Weight bearing: FWB Assist: ?SBA ? Distance:?? 300'x1 (am), 300'x1 (pm) ? Deviation: ? slow wayne, low step height, Short step lenght, occassionally lifts her FWW ? Therapeutic Exercises 58380: Direct one-on-one instruction in therapeutic exercises to develop strength, endurance, range of motion and flexibility.? Provided skilled instruction in proper exercise performance Provided skilled manual cues to facilitate proper muscle recruitment and/or form: Exercises - Seated Hip Flexion - 1 x daily - 7 x weekly - 1 sets - 10 reps - Seated Long Arc Quad - 1 x daily - 7 x weekly - 1 sets - 10 reps - Seated Hip Abduction - 1 x daily - 7 x weekly - 1 sets - 10 reps - Seated Heel Raise - 1 x daily - 7 x weekly - 1 sets - 10 reps - Seated Toe Raise - 1 x daily - 7 x weekly - 1 sets - 10 reps - Sit to Stand - 1 x daily - 7 x weekly - 1 sets - 10 reps - Marching in place Assessment: pt appears to be pleasantly confused and can be redirected when pt get distracted while walking, pt peering inside each room passed would greet all pt that would engage, slightly suspicious of nurses seems to think people thinks badly of her, pt reassured that no body thinks of her that way, pt appeared to be comforted by it and was able to settle down in recliner after getting setup post session. PLAN: Continue with balance training, global strengthening and general conditioning for improved safety, mobility and activity tolerance until pt is ready for DC. TREATMENT CODE/TIME: 32721z3 20mins (11:45-12:05am) [id number] 30mins (1:50-2:20pm)
[2023-08-26 15:03] LABS: ANA Interpretation Negative (Negative)
[2023-08-26] MEDS: Acetaminophen 500 MG TAB 1000 MG PO (20:28)
[2023-08-26] MEDS: Atorvastatin 40 MG TAB 80 MG PO (20:30)
[2023-08-27] MEDS: Levothyroxine 88 MCG TAB PO (05:49)
[2023-08-27] MEDS: Psyllium PKT 1 EACH PO (07:53)
[2023-08-27] MEDS: Omega-3 Fatty Acids 1000 MG CAP PO (07:53)
[2023-08-27] MEDS: Multivitamin w/Minerals TAB 1 TAB PO (07:53)
[2023-08-27] MEDS: Calcium 600mg/Vit D 200U TAB 1 TAB PO (07:53)
[2023-08-27] MEDS: Acetylcysteine 600 MG CAP 1200 MG PO ×2 (07:53→19:26)
[2023-08-27] MEDS: Cholecalciferol (Vitamin D3) 1,000 UNIT TAB 1000 UNITS PO (07:54)
[2023-08-27] MEDS: buPROPion-CR 100 MG TABCR PO (07:54)
[2023-08-27] MEDS: Clopidogrel 75 MG TAB PO (07:54)
[2023-08-27] MEDS: Ascorbic Acid 500 MG TAB PO (07:54)
[2023-08-27] MEDS: Famotidine 20 MG TAB PO (07:54)
[2023-08-27] MEDS: Aspirin E.C. 81 MG TABEC PO (07:54)
[2023-08-27] MEDS: Normal Saline Flush 10 ML SYR IVP ×2 (07:55→19:38)
[2023-08-27 08:03] VITALS: BP 131/75; PULSE 72; RESP 15; TEMP 37.3; O2SAT 97
--- NOTE | 2023-08-27 09:41 | PT.INTREAT ---
PT Notes Visit Reasons: Acute Metabolic Encephalopathy Inpatient Physical Therapy Treatment Note [facility] Date: 08/27/23 PRECAUTIONS:Standard SUBJECTIVE: Pt reports that she does not feel well today. OBJECTIVE: ? Therapeutic Activities (17203i[]): Direct one-on-one instruction in dynamic activities to improve functional performance. ? BED MOBILITY/TRANSFERS? Sit-stand: I? Stand-sit: I ? Provided skilled cues and instruction on performance and technique throughout. Gait Training (43094x[1]): Direct one-on-one instruction and skilled instruction in: [X] employing an assistive device [X] Provided verbal cues for equipment management and technique ? GAIT? Assistive Device: FWW? Weight bearing: Full Assist: CGA ? Distance:? Approx 150ft? Deviation: Had to help guide pt with walker and keep on track to move along.? Therapeutic Exercises (09308x[]): Direct one-on-one instruction in therapeutic exercises to develop strength, endurance, range of motion and flexibility. ? Exercises ? Seated LAQ x 10 Rowing x 10 Shoulder flexion x 10 ? ASSESSMENT:? Pt was very distracted today and required assist with walker to advance and keep staying on task today. PLAN: Cont as per Pt POC. TREATMENT CODE/TIME: 9:20-9:40 (20) TA
[2023-08-27 11:11] VITALS: BP 109/70; PULSE 84; RESP 17; TEMP 36.8; O2SAT 91
[2023-08-27 15:27] VITALS: BP 114/78; PULSE 84; RESP 18; TEMP 36.4; O2SAT 97
--- NOTE | 2023-08-27 15:35 | W.PM.PROGNOT ---
Date of Service Date of service: 08/27/23 Time of Service: 15:36 Assessment and Plan Assessment and plan (1) Encephalopathy: Status: Acute Assessment and plan: -seen by teleneurologist and the ED provider; agree with admitting physician that patient does not appear encephalopathic at this time as she remains oriented x4 -She is still having difficulty completing her thoughts and starts out expressing herself but then either can not finish her sentence or ends w/ something that is unrelated. -agree with admitting physician that this is either TIA ( I would score her ABCD2 at a 6) or she did have another thalamic CVA. -has been taking plavix and statin, but was not on asa -denies headache or neck pain/stiffness, also with leukocytosis or fever, meningitis/encephalitis unlikely -f/u MRI brain w/ and w/out and TTE w/ bubble study without acute findings -CTA head w/o any large vessel thrombosis. -CRP, ESR negative -ELIZABETH pending -lipid panel and A1c WNL -PT rec home with home health/PT services -given patient improvement while on her home medication regimen, and patient suggesting she may have missed some doses of her home medications leading to hospitalization, it appears this was all caused by medication misuse/missed dosages -if patient continues to improve, will likely be ready for discharge home with home health services tomorrow, 08/28/2023 (2) Expressive aphasia: Status: Acute Assessment and plan: -as noted above (3) Tardive dyskinesia: Status: Acute (4) Hypomagnesemia: Status: Acute Assessment and plan: -1.5 in ED -s/p 2 gm intravenous on admission -1.9 on AM 08/24 (5) Hypokalemia: Status: Acute Assessment and plan: -s/p 10 meq KCL intravenously in ED and additional doses on admission -3.6 on AM 08/24 (6) Acute alteration in mental status: Status: Acute Assessment and plan: -as noted above (7) Schizoaffective disorder: Status: Acute Assessment and plan: continue home meds of clozapine and buproprion Qualifiers: Schizoaffective disorder type: unspecified Qualified Code(s): F25.9 - Schizoaffective disorder, unspecified Subjective Subjective Interval history since last seen: Patient is able to clearly state that she is feeling better today and understands that her speech is much improved. Additionally, she is also able to recall that she may have missed a few doses of her psychiatric medications leading up to her hospitalization. However, she is not close enough to her baseline to feel safe discharging at this time. Exam Narrative Exam Narrative: Chronically ill appearing older female sitting up at the edge of the bed in no acute distress, AOx4, heart RRR, lungs CTAB, abdomen soft, non-tender, non-distended, normal strength and sensation in bilateral upper and lower extremities, significant improvement in tardive dyskenesia and well as almost complete resolution of expressive aphasia as compared to previous days Objective Last Vital Signs Temp 97.5 F L 08/27/23 15:27 Pulse 84 08/27/23 15:27 Resp 18 08/27/23 15:27 BP 114/78 08/27/23 15:27 Pulse Ox 97 08/27/23 15:27 Laboratory Results - last 24 hr 08/25/23 06:15 ELIZABETH Titer Not Applicable ELIZABETH Titer 2 Not Applicable ELIZABETH Titer 3 Not Applicable ELIZABETH Interpretation Negative Time Spent with Patient Time Spent with Patient: >50 minutes Time was spent: preparing to see the patient(eg.review tests), obtaining and/or reviewing separately otained hiistory, ordering medications,tests, procedures, referring, communicating with other health patient care secretary, indepentently interpreting results, counseling the patient and care coordination
[2023-08-27] MEDS: Atorvastatin 40 MG TAB 80 MG PO (19:26)
[2023-08-27 19:45] VITALS: BP 127/78; PULSE 70; RESP 16; TEMP 37; O2SAT 98
[2023-08-27 22:20] VITALS: BP 131/72; PULSE 82; RESP 16; O2SAT 95
[2023-08-28 03:43] VITALS: BP 124/60; PULSE 70; RESP 16; TEMP 36.7; O2SAT 96
[2023-08-28] MEDS: Levothyroxine 88 MCG TAB PO (06:27)
[2023-08-28 07:37] VITALS: BP 126/60; PULSE 67; RESP 17; TEMP 37; O2SAT 95
[2023-08-28] MEDS: Psyllium PKT 1 EACH PO (08:55)
[2023-08-28] MEDS: Clopidogrel 75 MG TAB PO (08:56)
[2023-08-28] MEDS: Aspirin E.C. 81 MG TABEC PO (08:56)
[2023-08-28] MEDS: Famotidine 20 MG TAB PO (08:56)
[2023-08-28] MEDS: Acetylcysteine 600 MG CAP 1200 MG PO ×2 (08:56→19:59)
[2023-08-28] MEDS: Multivitamin w/Minerals TAB 1 TAB PO (08:56)
[2023-08-28] MEDS: Cholecalciferol (Vitamin D3) 1,000 UNIT TAB 1000 UNITS PO (08:56)
[2023-08-28] MEDS: Ascorbic Acid 500 MG TAB PO (08:56)
[2023-08-28] MEDS: buPROPion-CR 100 MG TABCR PO (08:56)
[2023-08-28] MEDS: Omega-3 Fatty Acids 1000 MG CAP PO (08:56)
[2023-08-28] MEDS: Calcium 600mg/Vit D 200U TAB 1 TAB PO (08:56)
--- NOTE | 2023-08-28 09:23 | PT.INTREAT ---
PT Notes Visit Reasons: Acute Metabolic Encephalopathy Inpatient Physical Therapy Treatment Note [facility] Date: 08/28/23 PRECAUTIONS:Standard OBJECTIVE: Therapeutic Activities (40539y[1]): Direct one-on-one instruction in dynamic activities to improve functional performance. ? BED MOBILITY/TRANSFERS? Sit-stand: CGA? Stand-sit: CGA ? Provided skilled cues and instruction on performance and technique throughout. Gait Training (23224o[]): Direct one-on-one instruction and skilled instruction in: [X] employing an assistive device [X] turning and movement with proper form [X] Provided verbal cues for equipment management and technique e? GAIT? Assistive Device: FWW ? Weight bearing: Full Assist: CGA ? Distance:? 150ft ? Deviation: Had to help guide the walker at times and remind pt to keep the walker on the ground while walking and try to focus on where she was walking. ? Therapeutic Exercises (13496x[]): Direct one-on-one instruction in therapeutic exercises to develop strength, endurance, range of motion and flexibility. ? Exercises ? Seated rowing x 10 LAQ x 10 Seated shoulder flexion x 10 Seated marching x 10 Seated hip abd x 10 Shoulder circles x 10 ASSESSMENT:? Pt was more difficult today to keep on task and focused. Pt required max cueing with ambulation. PLAN: Cont as per Pt POC. TREATMENT CODE/TIME: 9-9:20 (20) TA
[2023-08-28] MEDS: Normal Saline Flush 10 ML SYR IVP ×2 (10:18→20:25)
[2023-08-28 12:08] VITALS: BP 123/76; PULSE 80; RESP 17; TEMP 37; O2SAT 97
[2023-08-28 15:41] VITALS: BP 114/98; PULSE 77; RESP 18; TEMP 37.1; O2SAT 96
--- NOTE | 2023-08-28 16:35 | PDOC.CMPRO ---
Date of service: 08/28/23 Time of Service: 16:35 Care Management Progress Note Progress Note Text Progress Note Text: S/O: Yaima was sitting up in her chair when CM met with her. She is able to communicate her thoughts and feelings clearly, but her speech is very slow and deliberate. Mentally, Yaima appears much clearer, however she is reluctant to go home. She informed CM that her house is cluttered, She stated that she does not know if all of her things are still there. She mentioned going to [facility] and asked if insurance would pay. When CM explained that insurance does not pay for housing, she admitted that she would likely not be able to afford it. Yaima's [id number] informed nursing that she believes that Yaima should go to a usp but Yaima is not sure about that. Again, she is concerned with cost. CM explained that her insurance would pay for a little while, up to 20 days, if she required a skilled level; of care. As PT had recommended HH PT and not SNF, she may not qualify. CM did explain that if she does go home, she will have home health services for RN, PT, OT and [employer]. A: Yaima is a 68 year old female admitted to [facility] on 08/24/23 with acute metabolic encephalopathy. P: Anticipate Yaima will return home once medically cleared. She will transport via private vehicle by [facility], coordinated by CM, when ready. She will follow up with her PCP and discharge plan of care. CM will continue to follow. SDOH(Care Management) Screening Will the Patient Participate in the Screening?: Unable to obtain
[2023-08-28] MEDS: Atorvastatin 40 MG TAB 80 MG PO (20:00)
[2023-08-28 20:13] VITALS: BP 142/82; PULSE 78; RESP 16; TEMP 36.4; O2SAT 96
[2023-08-29 00:42] VITALS: BP 138/82; PULSE 73; RESP 16; O2SAT 95
[2023-08-29] MEDS: Levothyroxine 88 MCG TAB PO (06:24)
--- NOTE | 2023-08-29 07:40 | PDOC.HHF2F_ITS ---
Home Health Referral Home Health Orders Clinical synopsis of why skilled professionals are needed: Schizoaffective disorder, tardive dyskinesia Registered Nurse: Check all that apply Instruct on new or changed medication(s)/assess compliance: Ordered Physical Therapist: Check all that apply Increase strength & endurance for safe mobility at home: Ordered To design/establish home maintenance program: Ordered Fall reduction therapy program for patient with history of frequent falls: Ordered Home safety evaluation and teaching/gait training including stair management (if applicable): Ordered Occupational Therapist: Evaluate and treat for patient unable to perform ADL/IADL/self-care: Ordered Upper extremity strengthening, range and motion: Ordered French Lecturer: Assist with community resources: Ordered Assist with residential care planning: Ordered Encounter Date and Reason: I certify that a FTF encounter for this patient was performed on August 29, 2023 and that such encounter was related to the primary reason the patient requires home health services. The encounter was conducted in the following manner: * By me as the certifying physician, EXECUTIVE CHEF, PA or * By an inpatient physician, EXECUTIVE CHEF or PA during an inpatient stay who communicated findings to me, Certification And Authentication I certify that I composed the above information based on my clinical judgment relating to this patient's medical condition and, if applicable, clinical findings communicated to me by the NPP or inpatient physician who performed the FTF encounter. Name of Provider that will be monitoring home health services: Dillon Scott
--- NOTE | 2023-08-29 07:40 | W.PM.DS.N ---
Date of service: 08/29/23 Time of Service: 11:22 DS: Diagnosis Discharge Diagnosis (1) Encephalopathy: Status: Acute Asessment and Plan: -seen by teleneurologist and the ED provider; agree with admitting physician that patient does not appear encephalopathic at this time as she remains oriented x4 -She is still having difficulty completing her thoughts and starts out expressing herself but then either can not finish her sentence or ends w/ something that is unrelated. -agree with admitting physician that this is either TIA ( I would score her ABCD2 at a 6) or she did have another thalamic CVA. -has been taking plavix and statin, but was not on asa -denies headache or neck pain/stiffness, also with leukocytosis or fever, meningitis/encephalitis unlikely -f/u MRI brain w/ and w/out and TTE w/ bubble study without acute findings -CTA head w/o any large vessel thrombosis. -CRP, ESR negative -ELIZABETH negative -lipid panel and A1c WNL -PT rec home with home health/PT services -given patient improvement while on her home medication regimen, and patient suggesting she may have missed some doses of her home medications leading to hospitalization, it appears this was all caused by medication misuse/missed dosages -Patient experienced significant improvement return back to his functional baseline status and was ultimately determined to be stable for discharge home. (2) Expressive aphasia: Status: Acute Asessment and Plan: - As noted above (3) Tardive dyskinesia: Status: Acute Asessment and Plan: - Improved (4) Hypomagnesemia: Status: Acute (5) Hypokalemia: Status: Acute (6) Acute alteration in mental status: Status: Acute (7) Schizoaffective disorder: Status: Acute Asessment and Plan: - Recommend continuing home medication regimen with close home health for adherence and medication compliance Discharge Plan Disposition Patient Disposition: Home W/Home Health Services Condition: Good Discharge Details Reason For Visit: Acute Metabolic Encephalopathy Admit Date/Time: 08/24/23 23:03 Admit Provider: Italo Hemphill Attending Provider: Italo Hemphill Primary Care Provider: Dillon Scott Hospital Course Hospital Course: Patient initially presented with left-sided weakness and worsening aphasia that was initially concerning for CVA. However, head CT was negative as well as MRI, and ultimately was determined not patient's symptoms which also included worsening of her tardive dyskinesia was due to patient reported medication noncompliance. While hospitalized she was on her home medication regimen and slowly improved back to her baseline mental and functional status and was ultimately determined to be stable for discharge home with home health services. Home Meds and New Rx's Prescriptions: Continued psyllium husk [Metamucil] 0.4 gram capsule 0.4 g PO DAILY Qty: 90 3RF ascorbate calcium (vitamin C) 500 mg tablet 500 mg PO DAILY melatonin 3 mg capsule 3 mg PO HS PRN acetylcysteine [NAC] 600 mg capsule 1,200 mg PO BID Fish Oil 100-160-1,000 mg capsule 1 cap PO DAILY (DME) Raised Toilet Seat See Rx Instructions .ROUTE .MEDSUPPLY Qty: 1 0RF Rx Instructions: As directed (DME) Bedside Commode See Rx Instructions .Route .MEDSUPPLY Qty: 1 0RF Patient Comments: caregiver states it is coming today Rx Instructions: Utilize commode during initial recovery s/p hip replacement loratadine 10 mg tablet 10 mg PO DAILY Qty: 90 4RF levothyroxine 88 mcg tablet 88 mcg PO DAILY Qty: 90 3RF atorvastatin 40 mg tablet 40 mg PO QPM Qty: 90 3RF cholecalciferol (vitamin D3) 25 mcg (1,000 unit) capsule 25 mcg PO DAILY clozapine 25 mg tablet 25 mg PO HS Rx Instructions: with 100 mg for total dose = 125 mg qhs Calcium 600 with Vitamin D3 600 mg-10 mcg (400 unit) tablet,chewable 1 tab PO DAILY Qty: 90 3RF famotidine 20 mg tablet 20 mg PO DAILY Qty: 90 3RF One Daily Multi-Vit w-Mineral 4.5 mg iron tablet 1 tab PO DAILY Qty: 100 3RF clopidogrel 75 mg tablet 75 mg PO DAILY Qty: 90 3RF lorazepam 0.5 mg tablet 0.5 tab PO BID PRN acetaminophen 500 mg tablet 1,000 mg PO TID Qty: 90 3RF clozapine 100 mg tablet 100 mg PO HS Rx Instructions: with 25 mg for total = 125 mg. confirmed with [facility] (pt currently due for fill, [facility] waiting for blood work 08/25/23) bupropion HCl 100 mg Tablet Sustained-Release 12 Hr 100 mg PO QAM Qty: 30 0RF Discharge Instructions Stand Alone Forms: Nursing Discharge Form Referrals: Dillon Scott MD [Primary Care Provider] - 08/31/23 2:40 pm Activity:: Activity as Tolerated Equipment/Supplies:: No Equipment Needed Diet:: As Tolerated Discharge Orders Discharge Orders: Discharge Order (Routine); Ordered 08/29/23 Ordered By: Alphonso Louise Discharge Data Discharge Date/Time-TO BE ENTERED AT DEPARTURE: 08/29/23 10:14 DS: Summary Time Spent with Patient providing and/or coordinating discharge services: Greater than 30 minutes Status at Discharge Functional status at discharge: independent ambulation Overall status at discharge: patient is back to baseline Mental Status: mental status grossly normal Speech and Movement: speech and movement normal Mood: congruent mood Affect: normal affect Quality:SDOH Health Related Social Needs: No Data to Display Exam Narrative Exam Narrative: Chronically ill appearing older female sitting up at the edge of the bed in no acute distress, AOx4, heart RRR, lungs CTAB, abdomen soft, non-tender, non-distended, normal strength and sensation in bilateral upper and lower extremities, significant improvement in tardive dyskenesia and well as almost complete resolution of expressive aphasia as compared to previous days Psych Mental Status: mental status grossly normal Speech and Movement: speech and movement normal Mood: congruent mood Affect: normal affect DS: Data Vitals/I&O Vitals and I&O: Vital Signs Temperature 97.5 F L 08/28/23 20:13 Temperature Source Tympanic 08/28/23 20:13 Pulse 73 08/29/23 00:42 Pulse Rhythm Regular 08/28/23 20:20 Respiratory Rate 16 08/29/23 00:42 Respiratory Effort Normal 08/28/23 20:20 Respiratory Depth Normal 08/28/23 20:20 Respiratory Pattern Normal 08/28/23 20:20 Blood Pressure 138/82 08/29/23 00:42 Blood Pressure Position Supine 08/24/23 20:51 Pulse Oximetry 95 08/29/23 00:42 Oxygen Delivery Method Room Air 08/29/23 00:42 Oxygen Flow Rate 0 08/29/23 00:42 Pain Level 0 08/29/23 00:42 Comment pt says she is experiencing some pain but is unable to relay number off the pain scale 08/27/23 11:11 Intake & Output 08/28/23 08/29/23 08/29/23 17:59 05:59 17:59 Intake Total 510 / 510 300 / 810 Output Total 300 / 300 Balance 210 / 210 300 / 510 Intake: Oral 510 / 510 300 / 810 Output: Urine 300 / 300 Other: Urine Color Yellow Urine Appearance Clear Clear Comment pt missed toilet insert with this void. 1 unknown void at the toilet now. Stool Size Large Stool Characteristics Soft Liquid Brown Voiding Methods Toilet PFSH All Active Problems Expressive aphasia (Acute) Tardive dyskinesia (Acute) Encephalopathy (Acute) Dysarthria (Acute) Difficulty comprehending speech (Acute) Hypomagnesemia (Acute) Hypokalemia (Acute) Acute alteration in mental status (Acute) PVD (peripheral vascular disease) (Chronic) Malaise (Acute) Low back pain (Acute) Elevated serum alkaline phosphatase level (Acute) Dystrophia unguium (Acute) Peripheral edema (Acute) Left knee pain (Acute) History of total left hip replacement (Acute 11/11/21) Schizoaffective disorder (Acute) Chronic diarrhea (Acute) Diarrhea (Chronic 05/15/12) h/o collagenous colitis 2009 on colonoscopy Edentulous (Acute 10/17/13) 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 MRSA (methicillin resistant staph aureus) culture positive (Acute 04/04/13) Hyponatremia (Acute 03/24/94) Abnormal weight loss (Acute 06/21/12) Hydradenitis (Acute) in rt upper thigh region Rash (Acute) Leg swelling (Acute) Bilateral knee pain (Acute) Left knee DJD (Chronic) Most recent injection: 08/30/22; 05/27/2021; 08/18/20; 03/31/2020 Hematuria (Acute) Thoracic aortic aneurysm (Acute) 4.[address] from 09/[address] from 10/2021 Lethargy (Acute) AMS (altered mental status) (Acute) Depression (Chronic) Hypokalemia (Acute) Hypomagnesemia (Acute) Schizoaffective disorder (Chronic) Discharge planning issues (Acute) DVT prophylaxis (Acute) Acute CVA (cerebrovascular accident) (Acute) CVA (cerebral vascular accident) (Chronic) Rash (Acute) Dry skin (Acute) Status post right hip replacement (Acute 08/05/21) Medical History GERD (gastroesophageal reflux disease) Urge urinary incontinence Osteoarthritis Hypothyroidism Folliculitis Hx of malignant neoplasm of vagina Hx MRSA infection Surgical History History of hip replacement Colonoscopy - MAC (02/14/17) Colonoscopy - MAC (01/12/11) Social History Smoking/Tobacco Use Status: Current-Occasional Tobacco Type: cigarettes Smoking risk assessment performed?: Yes Alcohol Intake: current Alcohol Intake frequency: holidays/special occasions only Drug use: Never Substance use type: does not use Housing: apartment Current gender identity: female Do you feel safe at home: Yes Do you feel safe in your relationship?: Yes Time Spent with Patient Time Spent with Patient: <45 minutes Time was spent: preparing to see the patient(eg.review tests), obtaining and/or reviewing separately otained hiistory, ordering medications,tests, procedures, referring, communicating with other health wound care center consultant, indepentently interpreting results, counseling the patient and care coordination
[2023-08-29 08:01] VITALS: BP 113/80; PULSE 87; RESP 18; TEMP 37; O2SAT 98
[2023-08-29] MEDS: Multivitamin w/Minerals TAB 1 TAB PO (08:06)
[2023-08-29] MEDS: Famotidine 20 MG TAB PO (08:06)
[2023-08-29] MEDS: Cholecalciferol (Vitamin D3) 1,000 UNIT TAB 1000 UNITS PO (08:06)
[2023-08-29] MEDS: Calcium 600mg/Vit D 200U TAB 1 TAB PO (08:06)
[2023-08-29] MEDS: Acetylcysteine 600 MG CAP 1200 MG PO (08:06)
[2023-08-29] MEDS: Normal Saline Flush 10 ML SYR IVP (08:06)
[2023-08-29] MEDS: Aspirin E.C. 81 MG TABEC PO (08:06)
[2023-08-29] MEDS: buPROPion-CR 100 MG TABCR PO (08:07)
[2023-08-29] MEDS: Psyllium PKT 1 EACH PO (08:07)
[2023-08-29] MEDS: Omega-3 Fatty Acids 1000 MG CAP PO (08:07)
[2023-08-29] MEDS: Ascorbic Acid 500 MG TAB PO (08:07)
[2023-08-29] MEDS: Clopidogrel 75 MG TAB PO (08:07)
--- NOTE | 2023-08-29 12:12 | CMDISCH_ITS ---
Date of service: 08/29/23 Time of Service: 12:12 LACE Index Scoring Tool Questions: Length of Stay (in days): 4 - 6 Was the patient admitted via the E.D.?: Yes Comorbidities: Cerebrovascular Disease E.D. Visits: 1 Answers: Total Score: 9 Risk of Readmission: Low Risk Care Management Discharge Plan Reason for Hospitalization: acute metabolic encephalopathy Discharge Plan: Yaima returned home today with new orders for HH RN, PT, OT, GUEST EXPERIENCE SPECIALIST. CM coordinated an RCT ride home in a private vehicle. She will follow up with her PCP and discharge plan of care. She is happy to be going home. Patient/Family Education Needs: Review discharge instructions and limitations, discussion of self care needs including ask me three. Services Needed at Discharge: Home Health Care Services (new HH RN, PT, OT, GUEST EXPERIENCE SPECIALIST) SDOH Health Related Social Needs: No Data to Display
== END 2023-08-29 10:14 | disposition home health service (06) | DRG 92 ==
LOC: ER 08-25 00:23 → MS 08-25 08:33
PROVIDERS: Admitting Provider Internal Medicine; Emergency Provider Emergency Medicine; PCP Family Medicine; Visit Provider Internal Medicine
DX: G92.8 Other toxic encephalopathy (principal); G81.94 Hemiplegia, unspecified affecting left nondominant side; R47.01 Aphasia; G24.01 Drug induced subacute dyskinesia; T50.996A Underdosing of other drugs, medicaments and biological substances, initial encounter; Z91.138 Patient's unintentional underdosing of medication regimen for other reason; E83.42 Hypomagnesemia; E87.6 Hypokalemia; F25.9 Schizoaffective disorder, unspecified; Z79.899 Other long term (current) drug therapy; Z79.02 Long term (current) use of antithrombotics/antiplatelets; Z86.73 Personal history of transient ischemic attack (TIA), and cerebral infarction without residual deficits; M17.0 Bilateral primary osteoarthritis of knee; E03.9 Hypothyroidism, unspecified; I71.20 Thoracic aortic aneurysm, without rupture, unspecified; Z96.643 Presence of artificial hip joint, bilateral; N39.41 Urge incontinence; F17.210 Nicotine dependence, cigarettes, uncomplicated; I73.9 Peripheral vascular disease, unspecified; M54.50 Low back pain, unspecified; K21.9 Gastro-esophageal reflux disease without esophagitis
CPT/HCPCS: 00123; 36415; 36416; 70496; 70498; 70553; 80048; 80053; 80061; 80307; 82962; 85652; 93005; 93306; 96361; 96365; 96375; 96376; 97110; 97162; 97530; 99291; 80320; 81003; 81015; 82140; 83036; 83735; 84443; 84484; 85025; 85610; 85730; 86038; 86140; 92523; 93010; 99223; 99233; 99238; G0378; J2060; J3475; J3480; J3490

== ENCOUNTER 2023-08-31 10:06 | Emergency (ER) | payer MEDICARE, SELFPAY ==
[2023-08-31 10:07] VITALS: BP 142/53; PULSE 73; RESP 18; TEMP 36.2; O2SAT 95
--- NOTE | 2023-08-31 10:20 | ED.GENADUL_ITS ---
Discharge Plan Disposition Patient Disposition: Home Condition: Stable Discharge Details Clinical Impression: Tardive dyskinesia, Schizoaffective disorder Primary Care Provider: Dillon Scott ED Provider: Young Delgado Home Meds and New Rx's Prescriptions: Continued psyllium husk [Metamucil] 0.4 gram capsule 0.4 g PO DAILY Qty: 90 3RF ascorbate calcium (vitamin C) 500 mg tablet 500 mg PO DAILY melatonin 3 mg capsule 3 mg PO HS PRN Fish Oil 100-160-1,000 mg capsule 1 cap PO DAILY (DME) Raised Toilet Seat See Rx Instructions .ROUTE .MEDSUPPLY Qty: 1 0RF Rx Instructions: As directed (DME) Bedside Commode See Rx Instructions .Route .MEDSUPPLY Qty: 1 0RF Patient Comments: caregiver states it is coming today Rx Instructions: Utilize commode during initial recovery s/p hip replacement loratadine 10 mg tablet 10 mg PO DAILY Qty: 90 4RF levothyroxine 88 mcg tablet 88 mcg PO DAILY Qty: 90 3RF atorvastatin 40 mg tablet 40 mg PO QPM Qty: 90 3RF cholecalciferol (vitamin D3) 25 mcg (1,000 unit) capsule 25 mcg PO DAILY clozapine 25 mg tablet 25 mg PO HS Rx Instructions: with 100 mg for total dose = 125 mg qhs Calcium 600 with Vitamin D3 600 mg-10 mcg (400 unit) tablet,chewable 1 tab PO DAILY Qty: 90 3RF famotidine 20 mg tablet 20 mg PO DAILY Qty: 90 3RF One Daily Multi-Vit w-Mineral 4.5 mg iron tablet 1 tab PO DAILY Qty: 100 3RF clopidogrel 75 mg tablet 75 mg PO DAILY Qty: 90 3RF lorazepam 0.5 mg tablet 0.5 tab PO BID PRN acetaminophen 500 mg tablet 1,000 mg PO TID Qty: 90 3RF clozapine 100 mg tablet 100 mg PO HS Rx Instructions: with 25 mg for total = 125 mg. confirmed with [place] (pt currently due for fill, [facility] waiting for blood work 08/25/23) bupropion HCl 100 mg Tablet Sustained-Release 12 Hr 100 mg PO QAM Qty: 30 0RF Discharge Instructions Instructions: Hypomagnesemia (ED) Additional Instructions: Your blood work showed a mildly low magnesium level, try to increase your dietary intake of magnesium. Follow-up with your primary care provider within 1 week, also follow-up with home health. If you feel more ill or have new symptoms such as difficulty breathing or severe pain return to the emergency department for reevaluation HPI General Mode of arrival: EMS . Date/Time Provider Initiated Documentation: 08/31/23 10:14 . Limitations to Documentation: no limitations . Information obtained by: patient . History of Present Illness 68 year old F presents to the emergency department with the chief complaint of Trouble taking medications, Patient started experiencing this unknown and it has been constant. No relieving factors improve symptom(s), No exacerbating factors reported . Patient notes no other symptoms.. Patient did receive the following treatments prior to arrival, none Related Data Home Medications Medication Instructions Recorded Confirmed bupropion HCl 100 mg tablet,12 hr 100 mg PO QAM #30 tabs 04/07/21 08/31/23 sustained-release ascorbate calcium (vitamin C) 500 500 mg PO DAILY 07/15/21 08/31/23 mg tablet melatonin 3 mg capsule 3 mg PO HS PRN 07/15/21 08/31/23 omega 4-mrs-ivx-fish oil 100 1 cap PO DAILY 07/15/21 08/31/23 mg-160 mg-1,000 mg capsule (Fish Oil) Bedside Commode #1 ea 08/03/21 08/31/23 Raised Toilet Seat #1 ea 08/03/21 08/31/23 lorazepam 0.5 mg tablet 0.5 tab PO BID PRN 11/10/21 08/31/23 acetaminophen 500 mg tablet 1,000 mg (2 x 500 mg) PO TID #90 11/11/21 08/31/23 tabs levothyroxine 88 mcg tablet 88 mcg PO DAILY #90 tabs 11/29/22 08/31/23 loratadine 10 mg tablet 10 mg PO DAILY #90 tabs 11/29/22 08/31/23 atorvastatin 40 mg tablet 40 mg PO QPM #90 tabs 02/21/23 08/31/23 cholecalciferol (vitamin D3) 25 25 mcg PO DAILY 03/03/23 08/31/23 mcg (1,000 unit) capsule clozapine 25 mg tablet 25 mg PO HS 03/03/23 08/31/23 calcium carbonate 600 mg-vitamin 1 tab PO DAILY #90 tabs 03/21/23 08/31/23 D3 10 mcg (400 unit) chewable tablet (Calcium 600 with Vitamin D3) famotidine 20 mg tablet 20 mg PO DAILY #90 tabs 04/20/23 08/31/23 multivitamin with minerals-ferrous 1 tab PO DAILY #100 tabs 04/27/23 08/31/23 sulfate 4.5 mg iron tablet (One Daily Multivitamins with Minerals) psyllium husk 0.4 gram capsule 0.4 g PO DAILY #90 caps 05/11/23 08/31/23 (Metamucil) clopidogrel 75 mg tablet 75 mg PO DAILY #90 tabs 08/08/23 08/31/23 clozapine 100 mg tablet 100 mg PO HS 08/25/23 08/31/23 Previous Rx's Medication Instructions Recorded bupropion HCl 100 mg tablet,12 hr 100 mg PO QAM #30 tabs 04/07/21 sustained-release Bedside Commode #1 ea 08/03/21 Raised Toilet Seat #1 ea 08/03/21 acetaminophen 500 mg tablet 1,000 mg (2 x 500 mg) PO TID #90 11/11/21 tabs levothyroxine 88 mcg tablet 88 mcg PO DAILY #90 tabs 11/29/22 loratadine 10 mg tablet 10 mg PO DAILY #90 tabs 11/29/22 atorvastatin 40 mg tablet 40 mg PO QPM #90 tabs 02/21/23 calcium carbonate 600 mg-vitamin 1 tab PO DAILY #90 tabs 03/21/23 D3 10 mcg (400 unit) chewable tablet (Calcium 600 with Vitamin D3) famotidine 20 mg tablet 20 mg PO DAILY #90 tabs 04/20/23 multivitamin with minerals-ferrous 1 tab PO DAILY #100 tabs 04/27/23 sulfate 4.5 mg iron tablet (One Daily Multivitamins with Minerals) psyllium husk 0.4 gram capsule 0.4 g PO DAILY #90 caps 05/11/23 (Metamucil) clopidogrel 75 mg tablet 75 mg PO DAILY #90 tabs 08/08/23 Allergies Allergy/AdvReac Type Severity Reaction Status Date / Time chlorpheniramine Allergy Unknown Verified 08/24/23 21:17 erythromycin base Allergy Unknown Verified 08/24/23 21:17 Penicillins Allergy Rash Verified 08/24/23 21:17 General Stated Complaint: AMS/LOC JESSICA: 3 Review of Systems All systems reviewed & are unremarkable except as noted in HPI and below Constitutional Constitutional: Denies chills, Denies fever(s) and Denies weakness Cardiovascular Cardiovascular: Denies chest pain and Denies dyspnea Respiratory Respiratory: Denies cough and Denies dyspnea Gastrointestinal Gastrointestinal: Denies abdominal pain, Denies nausea and Denies vomiting Musculoskeletal Musculoskeletal: Denies joint swelling Neurologic Neurologic: Denies weakness Exam Const General: no acute distress Orientation: alert HENMT Head: normal to inspection Ears: external ears normal General nose exam: external nose normal Mouth: moist mucous membranes Eyes General: appearance normal, both eyes and all related structures Neck Neck: normal visual inspection Resp Effort & Inspection: normal respiratory effort and able to speak in complete sentences Auscultation: clear to auscultation bilaterally Cardio Rate: regular rate Heart Sounds: no murmurs GI Palpation: soft and nontender Skin General skin exam: no rashes or lesions noted Neuro General: patient alert and patient oriented x3 Extrem General: normal to inspection Psych Speech and Movement: not agitated Attitude: guarded Course Vital Signs Vital signs: Vital Signs Temperature 36.2 C L 08/31/23 10:07 Pulse 73 08/31/23 10:07 Respiratory Rate 18 08/31/23 10:07 Blood Pressure 142/53 H 08/31/23 10:07 Pulse Oximetry 95 08/31/23 10:07 Temperature 36.2 C L 08/31/23 10:07 Temperature Source Skin 08/31/23 10:07 Pulse 73 08/31/23 10:07 Respiratory Rate 18 08/31/23 10:07 Respiratory Effort Normal 08/31/23 10:17 Blood Pressure 142/53 H 08/31/23 10:07 Blood Pressure Position Supine 08/31/23 10:07 Pulse Oximetry 95 08/31/23 10:07 Oxygen Delivery Method Room Air 08/31/23 10:07 Oxygen Flow Rate 0 08/31/23 10:07 Pain Level 0 08/31/23 10:07 Medical Decision Making 68-year-old female with a history of schizoaffective disorder who was recently admitted and discharged a few days ago for trouble finding words and had reassuring imaging, no acute CVA on the MRI. She was discharged with plans for home health nursing to assist with her medications as she was not taking them routinely, and apparently [facility] found her in her house and was having trouble forming thoughts so they called EMS. She arrives stable, does seem guarded and mistrusting of me likely from her schizoaffective but does know her name and where she is. She says she sometimes gets mixed up with her medications, is unable to tell me if home health has come to see her or not, no focal deficits, appears well otherwise stable vital signs. Will check CBC, CMP, UA, given reassuring recent MRI and no falls or other trauma do not feel CT head indicated. Will also have care management check to see if home health is seeing her. Labs show mild low back, otherwise no significant findings. Patient stable, ambulating at baseline. Feels better after getting her morning dose of Wellbutrin. Do not feel any further testing or imaging indicated, she will follow-up with her primary care provider, apparently home health this was to be reaching out to her today to arrange for follow-up with her. Differential Diagnosis Differential Diagnosis: Schizoaffective, medication management Medical Records Medical records reviewed: Yes I reviewed the patient's medical records. Quality:SDOH Health Related Social Needs: No Data to Display PFSH All Active Problems (Updated 08/30/23 @ 00:09 by BUNNY HOBBS) Tardive dyskinesia (Acute) Dysarthria (Acute) Difficulty comprehending speech (Acute) Hypomagnesemia (Acute) Hypokalemia (Acute) PVD (peripheral vascular disease) (Chronic) Malaise (Acute) Low back pain (Acute) Elevated serum alkaline phosphatase level (Acute) Dystrophia unguium (Acute) Peripheral edema (Acute) Left knee pain (Acute) History of total left hip replacement (Acute 11/11/21) Schizoaffective disorder (Acute) Chronic diarrhea (Acute) Diarrhea (Chronic 05/15/12) h/o collagenous colitis 2008 on colonoscopy Edentulous (Acute 10/17/13) 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 MRSA (methicillin resistant staph aureus) culture positive (Acute 04/04/13) Hyponatremia (Acute 03/24/94) Abnormal weight loss (Acute 06/21/12) Hydradenitis (Acute) in rt upper thigh region Rash (Acute) Leg swelling (Acute) Bilateral knee pain (Acute) Left knee DJD (Chronic) Most recent injection: 08/30/22; 05/27/2021; 08/18/20; 03/31/2020 Hematuria (Acute) Thoracic aortic aneurysm (Acute) 4.[address] from 09/[address] from 10/2021 Lethargy (Acute) AMS (altered mental status) (Acute) Depression (Chronic) Hypokalemia (Acute) Hypomagnesemia (Acute) Schizoaffective disorder (Chronic) Discharge planning issues (Acute) DVT prophylaxis (Acute) Acute CVA (cerebrovascular accident) (Acute) CVA (cerebral vascular accident) (Chronic) Rash (Acute) Dry skin (Acute) Status post right hip replacement (Acute 08/05/21) Medical History GERD (gastroesophageal reflux disease) Urge urinary incontinence Osteoarthritis Hypothyroidism Folliculitis Hx of malignant neoplasm of vagina Hx MRSA infection Surgical History History of hip replacement Colonoscopy - MAC (02/14/17) Colonoscopy - MAC (01/12/11) Social History Smoking/Tobacco Use Status: Current-Occasional Tobacco Type: cigarettes Smoking risk assessment performed?: Yes Alcohol Intake: current Alcohol Intake frequency: holidays/special occasions only Drug use: Never Substance use type: does not use Housing: apartment Current gender identity: female Do you feel safe at home: Yes Do you feel safe in your relationship?: Yes
[2023-08-31 10:43] LABS: Abs Immature Grans 0.01 10^3/uL (0.0-0.06); Absolute Basophil Count 0.04 10^3/uL (0.0-0.2); Absolute Eosinophil Count 0.16 10^3/uL (0.0-0.7); Absolute Lymphocyte Count 1.01 10^3/uL (1.2-3.4); Absolute Monocyte Count 0.46 10^3/uL (0.1-0.8); Absolute Neutrophil Count 4.47 10^3/uL (1.2-6.7); Basophils % 0.7 %; Eosinophils % 2.6 %; HCT 38.3 % (36.0-46.0); HGB 12.8 g/dL (11.2-15.7); Immature Grans % 0.2 %; Lymphocytes % 16.4 %; MCH 30.7 pg (27.0-33.0); MCHC 33.4 % (32.0-36.0); MCV 92 fL (80-95); MPV 9.8 fL (8.0-11.0); Monocytes % 7.5 %; Neutrophils % 72.6 %; Platelet Count 232 10^3/uL (130-400); RBC 4.17 10^6/uL (3.93-5.22); RDW 12.6 % (11.7-14.6); RDW-SD 42.4 fL; WBC 6.15 10^3/uL (4.4-10.8)
[2023-08-31 11:10] LABS: ALT 32 U/L (14-59); AST 15 U/L (15-37); Albumin 3.1 g/dL (3.4-5.0); Alkaline Phosphatase 127 U/L (46-116); Anion Gap 10.3 mmol/L (3-11); BUN 10 mg/dL (7-18); Bilirubin, Total 0.4 mg/dL (0.2-1.0); CO2 25.7 mmol/L (21.0-32.0); CREATININE 0.7 mg/dL (0.55-1.02); Chloride 107 mmol/L (98-107); Estimated GFR 93.56 (mL/min/1.73m2); Glucose 104 mg/dL (74-106); Magnesium 1.6 mg/dL (1.8-2.4); Potassium 3.4 mmol/L (3.5-5.1); Sodium 143 mmol/L (136-145); TSH (W/Ref FT4) 1.82 uIU/mL (0.36-3.74)
[2023-08-31 11:15] VITALS: BP 144/75; PULSE 79; O2SAT 97
[2023-08-31] MEDS: buPROPion-CR 100 MG TABCR PO (11:37)
[2023-08-31 12:23] LABS: Bilirubin Negative (Negative); Blood Trace-intact (Negative); Clarity Clear (Clear); Glucose Negative (Negative); Ketones Negative (Negative); Leukocyte Esterase Trace (Negative); Nitrite Negative (Negative); Specific Gravity 1.015 (1.005-1.025); Urobilinogen 0.2 mg/dL (Up to 0.2)
[2023-08-31 12:32] LABS: Bacteria Rare HPF (Negative); Crystals Negative HPF (Negative); Epithelial Cells Rare HPF (Negative); Mucus Negative (Negative); RBC 0-2 HPF (0-2)
[2023-08-31 12:33] LABS: C & S Indicated? No; Casts Negative LPF (Negative)
[2023-08-31 12:50] VITALS: BP 133/92; PULSE 80; O2SAT 96
== END 2023-08-31 13:24 | disposition home or self-care (01) ==
PROVIDERS: Emergency Provider Emergency Medicine; PCP Family Medicine
DX: G24.01 Drug induced subacute dyskinesia (principal); F25.9 Schizoaffective disorder, unspecified; F17.210 Nicotine dependence, cigarettes, uncomplicated; Z86.73 Personal history of transient ischemic attack (TIA), and cerebral infarction without residual deficits; Z79.01 Long term (current) use of anticoagulants
CPT/HCPCS: 36415; 80053; 99283; 81003; 81015; 83735; 84443; 85025

== ENCOUNTER 2023-09-01 12:59 | Inpatient (IN) | payer MEDICARE, SELFPAY ==
[2023-09-01] VITALS (38 sets, daily range): BP systolic 120–157; BP diastolic 65–103; PULSE 53–89; RESP 12–23; TEMP 35.9–36.4; O2SAT 96–98
--- NOTE | 2023-09-01 12:45 | RT.EKG_ITS ---
APPROVED REPORT Exam: Resting ECG Reason for Exam: [facility] Patient Location: E HR:56 bpm ECG Measurements Heart Rate 56 AXIS GA 166 P 71 QRSd 94 QRS 65 QT 437 T 73 QTc 422 Conclusion Sinus bradycardia...rate< 60 Probable left atrial enlargement...P >50mS, <-0.10mV V1 Nonspecific T abnrm, anterolateral leads...T <-0.10mV, I aVL V2-V6
--- NOTE | 2023-09-01 13:10 | W.ED.GENAD ---
Discharge Plan Discharge Details Chief Complaint: AMS/LOC Primary Care Provider: Dillon Scott ED Provider: Young Delgado Home Meds and New Rx's Prescriptions: No Action psyllium husk [Metamucil] 0.4 gram capsule 0.4 g PO DAILY Qty: 90 3RF ascorbate calcium (vitamin C) 500 mg tablet 500 mg PO DAILY melatonin 3 mg capsule 3 mg PO HS PRN Fish Oil 100-160-1,000 mg capsule 1 cap PO DAILY (DME) Raised Toilet Seat See Rx Instructions .ROUTE .MEDSUPPLY Qty: 1 0RF Rx Instructions: As directed (DME) Bedside Commode See Rx Instructions .Route .MEDSUPPLY Qty: 1 0RF Patient Comments: caregiver states it is coming today Rx Instructions: Utilize commode during initial recovery s/p hip replacement loratadine 10 mg tablet 10 mg PO DAILY Qty: 90 4RF levothyroxine 88 mcg tablet 88 mcg PO DAILY Qty: 90 3RF atorvastatin 40 mg tablet 40 mg PO QPM Qty: 90 3RF cholecalciferol (vitamin D3) 25 mcg (1,000 unit) capsule 25 mcg PO DAILY clozapine 25 mg tablet 25 mg PO HS Rx Instructions: with 100 mg for total dose = 125 mg qhs Calcium 600 with Vitamin D3 600 mg-10 mcg (400 unit) tablet,chewable 1 tab PO DAILY Qty: 90 3RF famotidine 20 mg tablet 20 mg PO DAILY Qty: 90 3RF One Daily Multi-Vit w-Mineral 4.5 mg iron tablet 1 tab PO DAILY Qty: 100 3RF clopidogrel 75 mg tablet 75 mg PO DAILY Qty: 90 3RF lorazepam 0.5 mg tablet 0.5 tab PO BID PRN acetaminophen 500 mg tablet 1,000 mg PO TID Qty: 90 3RF clozapine 100 mg tablet 100 mg PO HS Rx Instructions: with 25 mg for total = 125 mg. confirmed with [facility] (pt currently due for fill, [facility] waiting for blood work 08/25/23) bupropion HCl 100 mg Tablet Sustained-Release 12 Hr 100 mg PO QAM Qty: 30 0RF HPI General Mode of arrival: EMS. Date/Time Provider Initiated Documentation: 09/01/23 13:02. Information obtained by: patient and EMS. History of Present Illness 68 year old F presents to the emergency department with the chief complaint of Change in mental status, Patient started experiencing this minute(s) (30) and it has been constant. No relieving factors improve symptom(s), No exacerbating factors reported . Patient did receive the following treatments prior to arrival, none Related Data Home Medications Medication Instructions Recorded Confirmed bupropion HCl 100 mg tablet,12 hr 100 mg PO QAM #30 tabs 04/07/21 09/01/23 sustained-release ascorbate calcium (vitamin C) 500 500 mg PO DAILY 07/15/21 09/01/23 mg tablet melatonin 3 mg capsule 3 mg PO HS PRN 07/15/21 09/01/23 omega 1-veb-tft-fish oil 100 1 cap PO DAILY 07/15/21 09/01/23 mg-160 mg-1,000 mg capsule (Fish Oil) Bedside Commode #1 ea 08/03/21 09/01/23 Raised Toilet Seat #1 ea 08/03/21 09/01/23 lorazepam 0.5 mg tablet 0.5 tab PO BID PRN 11/10/21 09/01/23 acetaminophen 500 mg tablet 1,000 mg (2 x 500 mg) PO TID #90 11/11/21 09/01/23 tabs levothyroxine 88 mcg tablet 88 mcg PO DAILY #90 tabs 11/29/22 09/01/23 loratadine 10 mg tablet 10 mg PO DAILY #90 tabs 11/29/22 09/01/23 atorvastatin 40 mg tablet 40 mg PO QPM #90 tabs 02/21/23 09/01/23 cholecalciferol (vitamin D3) 25 25 mcg PO DAILY 03/03/23 09/01/23 mcg (1,000 unit) capsule clozapine 25 mg tablet 25 mg PO HS 03/03/23 09/01/23 calcium carbonate 600 mg-vitamin 1 tab PO DAILY #90 tabs 03/21/23 09/01/23 D3 10 mcg (400 unit) chewable tablet (Calcium 600 with Vitamin D3) famotidine 20 mg tablet 20 mg PO DAILY #90 tabs 04/20/23 09/01/23 multivitamin with minerals-ferrous 1 tab PO DAILY #100 tabs 04/27/23 09/01/23 sulfate 4.5 mg iron tablet (One Daily Multivitamins with Minerals) psyllium husk 0.4 gram capsule 0.4 g PO DAILY #90 caps 05/11/23 09/01/23 (Metamucil) clopidogrel 75 mg tablet 75 mg PO DAILY #90 tabs 08/08/23 09/01/23 clozapine 100 mg tablet 100 mg PO HS 08/25/23 09/01/23 Previous Rx's Medication Instructions Recorded bupropion HCl 100 mg tablet,12 hr 100 mg PO QAM #30 tabs 04/07/21 sustained-release Bedside Commode #1 ea 08/03/21 Raised Toilet Seat #1 ea 08/03/21 acetaminophen 500 mg tablet 1,000 mg (2 x 500 mg) PO TID #90 11/11/21 tabs levothyroxine 88 mcg tablet 88 mcg PO DAILY #90 tabs 11/29/22 loratadine 10 mg tablet 10 mg PO DAILY #90 tabs 11/29/22 atorvastatin 40 mg tablet 40 mg PO QPM #90 tabs 02/21/23 calcium carbonate 600 mg-vitamin 1 tab PO DAILY #90 tabs 03/21/23 D3 10 mcg (400 unit) chewable tablet (Calcium 600 with Vitamin D3) famotidine 20 mg tablet 20 mg PO DAILY #90 tabs 04/20/23 multivitamin with minerals-ferrous 1 tab PO DAILY #100 tabs 04/27/23 sulfate 4.5 mg iron tablet (One Daily Multivitamins with Minerals) psyllium husk 0.4 gram capsule 0.4 g PO DAILY #90 caps 05/11/23 (Metamucil) clopidogrel 75 mg tablet 75 mg PO DAILY #90 tabs 08/08/23 Allergies Allergy/AdvReac Type Severity Reaction Status Date / Time chlorpheniramine Allergy Unknown Verified 09/01/23 12:57 erythromycin base Allergy Unknown Verified 09/01/23 12:57 Penicillins Allergy Rash Verified 09/01/23 12:57 General Stated Complaint: AMS/LOC JESSICA: 3 Review of Systems All systems reviewed & are unremarkable except as noted in HPI and below Constitutional Constitutional: Denies chills, Denies fever(s) and Denies weakness Cardiovascular Cardiovascular: Denies chest pain and Denies dyspnea Respiratory Respiratory: Denies cough and Denies dyspnea Gastrointestinal Gastrointestinal: Denies abdominal pain, Denies nausea and Denies vomiting Musculoskeletal Musculoskeletal: Denies joint swelling Neurologic Neurologic: Denies weakness Exam Const Orientation: alert HENNV Head: normal to inspection Ears: external ears normal General nose exam: external nose normal Mouth: moist mucous membranes Eyes General: appearance normal, both eyes and all related structures Neck Neck: normal visual inspection Resp Effort & Inspection: normal respiratory effort and able to speak in complete sentences Cardio Rate: regular rate Skin General skin exam: no rashes or lesions noted Neuro General: patient alert Cranial Nerves: PERRL Extrem General: normal to inspection Course Vital Signs Vital signs: Vital Signs Temperature 36.4 C L 09/01/23 12:59 Pulse 58 L 09/01/23 12:59 Respiratory Rate 16 09/01/23 12:59 Blood Pressure 128/103 H 09/01/23 12:59 Pulse Oximetry 98 09/01/23 12:59 Temperature 36.4 C L 09/01/23 12:59 Temperature Source Temporal Artery Scan 09/01/23 12:59 Pulse 58 L 09/01/23 12:59 Respiratory Rate 16 09/01/23 12:59 Respiratory Effort Normal, Non-Labored 09/01/23 13:06 Blood Pressure 128/103 H 09/01/23 12:59 Blood Pressure Position Sitting 09/01/23 12:59 Pulse Oximetry 98 09/01/23 12:59 Oxygen Delivery Method Room Air 09/01/23 12:59 Oxygen Flow Rate 0 09/01/23 12:59 Pain Level 0 09/01/23 12:59 Comment denies pain, no over discomfort noted 09/01/23 12:59 Medical Decision Making 68-year-old female with a chart diagnosis of schizoaffective disorder, has had prior episodes where she has had difficulty speaking and not cooperating with exam, recently admitted for similar symptoms with negative workup including an MRI, was seen yesterday for similar symptoms and improved with her home Wellbutrin and return for similar symptoms today. Apparently was meeting with mental health today when she stopped talking to them so they called EMS. Patient arrives with her normal tardive dyskinesia, when I call her name she will look at me but she does not answer questions she will intermittently say certain things like you need to speak up but then does not bite any other information. She is withdrawing all extremities to painful stimuli she is not cooperating with exam to do a full NIH stroke scale but per chart review does appear to be stable presentation as prior. Given recent negative MRI with similar presentation doubt stroke, suspect this is all related to her underlying psych disorder, she is having a lot of the negative symptoms consistent with schizophrenia type picture such as though blocking, increased latency of response, poverty of speech, apathy. Will check basic labs, given she had unremarkable MRI within the last week with similar presentation do not feel acute imaging indicated. Labs unremarkable, pending mental health evaluation, will sign patient out to oncoming provider pending mental health evaluation. Differential Diagnosis Differential Diagnosis: Schizophrenia, schizoaffective Medical Records Medical records reviewed: Yes I reviewed the patient's medical records. Lab Data Lab results reviewed: Yes I reviewed the patient's lab results. ECG Data Attestation: I personally reviewed and interpreted this ECG (s) as follows: Prior ECG tracings: available for review Interpretation: Sinus bradycardia rate of 56, CO 166, no STEMI Quality:SDOH Health Related Social Needs: No Data to Display REPLACED BY [facility] All Active Problems (Updated 08/30/23 @ 00:09 by BUNNY HOBBS) Tardive dyskinesia (Acute) Dysarthria (Acute) Difficulty comprehending speech (Acute) Hypomagnesemia (Acute) Hypokalemia (Acute) PVD (peripheral vascular disease) (Chronic) Malaise (Acute) Low back pain (Acute) Elevated serum alkaline phosphatase level (Acute) Dystrophia unguium (Acute) Peripheral edema (Acute) Left knee pain (Acute) History of total left hip replacement (Acute 11/11/21) Schizoaffective disorder (Acute) Chronic diarrhea (Acute) Diarrhea (Chronic 05/15/12) h/o collagenous colitis 2008 on colonoscopy Edentulous (Acute 10/17/13) 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 MRSA (methicillin resistant staph aureus) culture positive (Acute 04/04/13) Hyponatremia (Acute 03/24/94) Abnormal weight loss (Acute 06/21/12) Hydradenitis (Acute) in rt upper thigh region Rash (Acute) Leg swelling (Acute) Bilateral knee pain (Acute) Left knee DJD (Chronic) Most recent injection: 08/30/22; 05/27/2021; 08/18/20; 03/31/2020 Hematuria (Acute) Thoracic aortic aneurysm (Acute) 4.[address] from 09/[address] from 10/2021 Lethargy (Acute) AMS (altered mental status) (Acute) Depression (Chronic) Hypokalemia (Acute) Hypomagnesemia (Acute) Schizoaffective disorder (Chronic) Discharge planning issues (Acute) DVT prophylaxis (Acute) Acute CVA (cerebrovascular accident) (Acute) CVA (cerebral vascular accident) (Chronic) Rash (Acute) Dry skin (Acute) Status post right hip replacement (Acute 08/05/21) Medical History GERD (gastroesophageal reflux disease) Urge urinary incontinence Osteoarthritis Hypothyroidism Folliculitis Hx of malignant neoplasm of vagina Hx MRSA infection Surgical History History of hip replacement Colonoscopy - [facility] (02/14/17) Colonoscopy - [facility] (01/12/11) Social History Smoking/Tobacco Use Status: Current-Occasional Tobacco Type: cigarettes Smoking risk assessment performed?: Yes Alcohol Intake: current Alcohol Intake frequency: holidays/special occasions only Drug use: Never Substance use type: does not use Housing: apartment Current gender identity: female Do you feel safe at home: Yes Do you feel safe in your relationship?: Yes Sign Out Sign Out Data: Sign Out Comment: 68-year-old female with a history of schizoaffective disorder here with worsening negative symptoms of schizophrenia, including flat affect, thought blocking, apathy. Was recent admitted for similar and had negative workup including MRI. Pending mental health evaluation. Magnesium and potassium levels were mildly low so oral repletion was given. Last updated by Young Delgado MD at 09/01/23 14:53
[2023-09-01 13:20] LABS: Abs Immature Grans 0.02 10^3/uL (0.0-0.06); Absolute Basophil Count 0.03 10^3/uL (0.0-0.2); Absolute Lymphocyte Count 1.35 10^3/uL (1.2-3.4); Absolute Monocyte Count 0.47 10^3/uL (0.1-0.8); Absolute Neutrophil Count 4.62 10^3/uL (1.2-6.7); Basophils % 0.5 %; Eosinophils % 1.5 %; HCT 38.8 % (36.0-46.0); HGB 13.1 g/dL (11.2-15.7); Immature Grans % 0.3 %; Lymphocytes % 20.5 %; MCHC 33.8 % (32.0-36.0); MCV 92 fL (80-95); MPV 9.7 fL (8.0-11.0); Monocytes % 7.1 %; Neutrophils % 70.1 %; Platelet Count 258 10^3/uL (130-400); RBC 4.22 10^6/uL (3.93-5.22); RDW 12.6 % (11.7-14.6); RDW-SD 42.4 fL; WBC 6.59 10^3/uL (4.4-10.8)
[2023-09-01 13:36] LABS: INR 1.1 (0.9-1.1); PTT Activated 26.7 sec (23.6-32.8); Prothrombin Time 10.8 sec (9.1-11.1)
[2023-09-01 13:45] LABS: ALT 29 U/L (14-59); AST 16 U/L (15-37); Albumin 3.3 g/dL (3.4-5.0); Alkaline Phosphatase 130 U/L (46-116); Anion Gap 11.7 mmol/L (3-11); BUN 9 mg/dL (7-18); Bilirubin, Total 0.4 mg/dL (0.2-1.0); CO2 24.3 mmol/L (21.0-32.0); CREATININE 0.8 mg/dL (0.55-1.02); Calcium 9.3 mg/dL (8.5-10.1); Chloride 105 mmol/L (98-107); ETHANOL BLOOD 3.1 mg/dL (<10); Estimated GFR 79.71 (mL/min/1.73m2); Glucose 85 mg/dL (74-106); Magnesium 1.6 mg/dL (1.8-2.4); Sodium 141 mmol/L (136-145); Total Protein 6.3 g/dL (6.4-8.2); Troponin I < 50 ng/L (< or =60)
[2023-09-01] MEDS: buPROPion-CR 100 MG TABCR PO (13:50)
[2023-09-01] MEDS: Magnesium Oxide 400 MG TAB PO (14:19)
[2023-09-01] MEDS: Potassium Chloride 20 MEQ TABCR 40 MEQ PO (14:19)
--- NOTE | 2023-09-01 15:54 | ED.PROG_ITS ---
Date of service: 09/01/23 Time of Service: 15:54 Medical Decision Making Patient care accepted in signout from off going provider. She is a 68-year-old female with past medical history including schizoaffective disorder. She presents for the second time since hospitalization and discharge. At this time she seems fairly decompensated, almost catatonic. She has been evaluated by [facility] and initial thought was that she would be able to be placed at the care bed, but the patient is unable to perform simple activities like going to the bathroom by herself. I reviewed the case and workup thus far. I noted hypomagnesemia and hypokalemia. I have ordered for IV repletion of these electrolyte derangements. I have discussed with case management regarding the patient's failed hospital discharge and appropriate options for her. At this time it is not safe to send her home and she will be admitted to the hospital for further management and planning. Quality:[facility] Health Related Social Needs: No Data to Display Sign Out Sign Out Data: Sign Out Comment: 68-year-old female with a history of schizoaffective disorder here with worsening negative symptoms of schizophrenia, including flat affect, thought blocking, apathy. Was recent admitted for similar and had negative workup including MRI. Pending mental health evaluation. Magnesium and potassium levels were mildly low so oral repletion was given. Last updated by Young Delgado MD at 09/01/23 14:53 Discharge Plan Disposition Patient Disposition: Admit to [facility] Condition: Fair Discharge Details Chief Complaint: AMS/LOC Clinical Impression: AMS (altered mental status), Schizoaffective disorder, Hypokalemia, Hypomagnesemia, Discharge planning issues, Tardive dyskinesia Primary Care Provider: Dillon Scott ED Provider: Gill Dobson Home Meds and New Rx's Prescriptions: No Action psyllium husk [Metamucil] 0.4 gram capsule 0.4 g PO DAILY Qty: 90 3RF ascorbate calcium (vitamin C) 500 mg tablet 500 mg PO DAILY melatonin 3 mg capsule 3 mg PO HS PRN Fish Oil 100-160-1,000 mg capsule 1 cap PO DAILY (DME) Raised Toilet Seat See Rx Instructions .ROUTE .MEDSUPPLY Qty: 1 0RF Rx Instructions: As directed (DME) Bedside Commode See Rx Instructions .Route .MEDSUPPLY Qty: 1 0RF Patient Comments: caregiver states it is coming today Rx Instructions: Utilize commode during initial recovery s/p hip replacement loratadine 10 mg tablet 10 mg PO DAILY Qty: 90 4RF levothyroxine 88 mcg tablet 88 mcg PO DAILY Qty: 90 3RF atorvastatin 40 mg tablet 40 mg PO QPM Qty: 90 3RF cholecalciferol (vitamin D3) 25 mcg (1,000 unit) capsule 25 mcg PO DAILY clozapine 25 mg tablet 25 mg PO HS Rx Instructions: with 100 mg for total dose = 125 mg qhs Calcium 600 with Vitamin D3 600 mg-10 mcg (400 unit) tablet,chewable 1 tab PO DAILY Qty: 90 3RF famotidine 20 mg tablet 20 mg PO DAILY Qty: 90 3RF One Daily Multi-Vit w-Mineral 4.5 mg iron tablet 1 tab PO DAILY Qty: 100 3RF clopidogrel 75 mg tablet 75 mg PO DAILY Qty: 90 3RF lorazepam 0.5 mg tablet 0.5 tab PO BID PRN acetaminophen 500 mg tablet 1,000 mg PO TID Qty: 90 3RF clozapine 100 mg tablet 100 mg PO HS Rx Instructions: with 25 mg for total = 125 mg. confirmed with [facility] (pt currently due for fill, [facility] waiting for blood work 08/25/23) bupropion HCl 100 mg Tablet Sustained-Release 12 Hr 100 mg PO QAM Qty: 30 0RF
--- NOTE | 2023-09-01 16:46 | HPE_ITS ---
<Statement entered by Cas Ramirez - 09/01/23 20:38> She may benefit from benzodiazepines in addition to her home neuroleptics given possible developing catatonia. Await telepscyhiatry input. Date of service: 09/01/23 Time of Service: 16:46 Assessment and Plan Assessment and plan (1) Tardive dyskinesia: Status: Acute Assessment and plan: Symptoms at baseline will keep monitoring Psych consult -Evaluate Rx worsening condition -Substitution recommendtions if still not taking PO (2) AMS (altered mental status): Status: Acute Assessment and plan: As above BMP in AM UA had trace leuk est on 08/30 Offer oral home meds (3) Hypomagnesemia: Status: Acute Assessment and plan: Replete Mg in AM (4) Hypokalemia: Status: Acute Assessment and plan: Replete BMP in AM (5) On deep vein thrombosis (DVT) prophylaxis: Status: Acute Assessment and plan: Start LMWH (6) Discharge planning issues: Status: Acute Assessment and plan: CM to f/u [facility] patient unknown disposition at this time Discussed with Dr. Ramirez History of Present Illness History of Present Illness Chief Complaint: Altered mental status, hypokalemia, hypomagnesemia Narrative: This 68-year-old female with recent admission to [facility] discharged on 08/29/23 w a chart diagnosis of schizoaffective disorder was brought in via EMS today after meeting with mental health today and stopped talking to them.She has had prior episodes where she has had difficulty speaking and not cooperating with exam, recently admitted for similar symptoms. On ED visit on 08/30 with similar presentation, negative workup including an MRI and improvement of her symptoms with home dose of Wellbutrin. Baseline tardive dyskinesia, eye contact but not answering questions, moves all extremities, withdrawing from pain stimuli on arrival. ED provider decided that given recent negative MRI with similar presentation with suspicion of a relation to her underlying psych disorder with a lot of the negative symptoms consistent with schizophrenia type picture such as though blocking, increased latency of response, poverty of speech, apathy the was no need of further imaging. Labs in the ED revealed hypokalemia and hypomagnesemia. Replacement was initiated in the emergency room. Hospitalist was consulted and patient was admitted to medical surgical floor as an inpatient for altered mental status, hypokalemia and hypomagnesemia. Patient denies headaches, chest pain ,difficulty breathing, abdominal pain, vomiting, diarrhea, dysuria. Patient reports intermittent change in vision, blurry vision at times, nasal congestion?feeling like she has allergies, and intermittent nausea; reports seeing things at a time but no visualization at this time. Patient reports feeling that her perception is different than what it should be. At this time the patient could not make a decision regarding her CODE STATUS. Healthcare proxy//agent Shanice AYALA called at [phone] out of service /[phone] not working to confirm code status without success. The patient is a full code at this point. Review of Systems All systems reviewed & are unremarkable except as noted in HPI and below PFSH All Active Problems (Updated 08/30/23 @ 00:09 by BUNNY HOBBS) On deep vein thrombosis (DVT) prophylaxis (Acute) Contraindication to deep vein thrombosis (DVT) prophylaxis (Acute) Tardive dyskinesia (Acute) Dysarthria (Acute) Difficulty comprehending speech (Acute) Hypomagnesemia (Acute) Hypokalemia (Acute) PVD (peripheral vascular disease) (Chronic) Malaise (Acute) Low back pain (Acute) Elevated serum alkaline phosphatase level (Acute) Dystrophia unguium (Acute) Peripheral edema (Acute) Left knee pain (Acute) History of total left hip replacement (Acute 11/11/21) Schizoaffective disorder (Acute) Chronic diarrhea (Acute) Diarrhea (Chronic 05/15/12) h/o collagenous colitis 2008 on colonoscopy Edentulous (Acute 10/17/13) 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 MRSA (methicillin resistant staph aureus) culture positive (Acute 04/04/13) Hyponatremia (Acute 03/24/94) Abnormal weight loss (Acute 06/21/12) Hydradenitis (Acute) in rt upper thigh region Rash (Acute) Leg swelling (Acute) Bilateral knee pain (Acute) Left knee DJD (Chronic) Most recent injection: 08/30/22; 05/27/2021; 08/18/20; 03/31/2020 Hematuria (Acute) Thoracic aortic aneurysm (Acute) 4.[address] from 09/[address] from 10/2021 Lethargy (Acute) AMS (altered mental status) (Acute) Depression (Chronic) Hypokalemia (Acute) Hypomagnesemia (Acute) Schizoaffective disorder (Chronic) Discharge planning issues (Acute) DVT prophylaxis (Acute) Acute CVA (cerebrovascular accident) (Acute) CVA (cerebral vascular accident) (Chronic) Rash (Acute) Dry skin (Acute) Status post right hip replacement (Acute 08/05/21) Medical History GERD (gastroesophageal reflux disease) Urge urinary incontinence Osteoarthritis Hypothyroidism Folliculitis Hx of malignant neoplasm of vagina Hx MRSA infection Surgical History History of hip replacement Colonoscopy - MAC (02/14/17) Colonoscopy - MAC (01/12/11) Social History Smoking/Tobacco Use Status: Current-Occasional Tobacco Type: cigarettes Smoking risk assessment performed?: Yes Alcohol Intake: current Alcohol Intake frequency: holidays/special occasions only Drug use: Never Substance use type: does not use Housing: apartment Current gender identity: female Do you feel safe at home: Yes Do you feel safe in your relationship?: Yes Meds Allergies and Home Medications Allergies Allergy/AdvReac Type Severity Reaction Status Date / Time chlorpheniramine Allergy Unknown Verified 09/01/23 12:57 erythromycin base Allergy Unknown Verified 09/01/23 12:57 Penicillins Allergy Rash Verified 09/01/23 12:57 Home Medications Medication Instructions Recorded Confirmed Type bupropion HCl 100 mg tablet,12 hr 100 mg PO QAM #30 tabs 04/07/21 09/01/23 Rx sustained-release ascorbate calcium (vitamin C) 500 500 mg PO DAILY 07/15/21 09/01/23 History mg tablet melatonin 3 mg capsule 3 mg PO HS PRN 07/15/21 09/01/23 History omega 4-crj-reb-fish oil 100 1 cap PO DAILY 07/15/21 09/01/23 History mg-160 mg-1,000 mg capsule (Fish Oil) Bedside Commode #1 ea 08/03/21 09/01/23 Rx Raised Toilet Seat #1 ea 08/03/21 09/01/23 Rx lorazepam 0.5 mg tablet 0.5 tab PO BID PRN 11/10/21 09/01/23 History acetaminophen 500 mg tablet 1,000 mg (2 x 500 mg) PO TID #90 11/11/21 09/01/23 Rx tabs levothyroxine 88 mcg tablet 88 mcg PO DAILY #90 tabs 11/29/22 09/01/23 Rx loratadine 10 mg tablet 10 mg PO DAILY #90 tabs 11/29/22 09/01/23 Rx atorvastatin 40 mg tablet 40 mg PO QPM #90 tabs 02/21/23 09/01/23 Rx cholecalciferol (vitamin D3) 25 25 mcg PO DAILY 03/03/23 09/01/23 History mcg (1,000 unit) capsule clozapine 25 mg tablet 25 mg PO HS 03/03/23 09/01/23 History calcium carbonate 600 mg-vitamin 1 tab PO DAILY #90 tabs 03/21/23 09/01/23 Rx D3 10 mcg (400 unit) chewable tablet (Calcium 600 with Vitamin D3) famotidine 20 mg tablet 20 mg PO DAILY #90 tabs 04/20/23 09/01/23 Rx multivitamin with minerals-ferrous 1 tab PO DAILY #100 tabs 04/27/23 09/01/23 Rx sulfate 4.5 mg iron tablet (One Daily Multivitamins with Minerals) psyllium husk 0.4 gram capsule 0.4 g PO DAILY #90 caps 05/11/23 09/01/23 Rx (Metamucil) clopidogrel 75 mg tablet 75 mg PO DAILY #90 tabs 08/08/23 09/01/23 Rx clozapine 100 mg tablet 100 mg PO HS 08/25/23 09/01/23 History Exam Narrative Exam Narrative: Constitutional The patient on the stretcher in the ED, delayed answer to questions as well as verbal commands ,comfortable and cooperative during the interview. The patient is without acute distress HENMT: Head is atraumatic, normocephalic, no lymphadenopathy. Facial structures with normal appearance Eyes: Well aligned, intact ROM Neck: Normal ROM, no meningeal signs Neuro:alert and oriented to self, person, place . No neurological focal deficit Resp: Normal respiratory pattern, speaks in full sentences, unlabored breathing, clear lung bilaterally Cardio: regular rhythm, distant S1, S2, no murmur, GI: Abdomen is not distended, soft and non tender, bowel sounds are present : Negative Costovertebral angle tenderness Back/spine/Pelvis: No back tenderness, normal alignment Integumentary: No skin lesions or rash Extremities: strength 5/5 to bilateral lower and upper extremities Psych: RASS 0, congruent mood and normal affect. Psych Appearance: disheveled Mental Status: other (altered, unfocused) Speech and Movement: delayed speech and pressured speech Mood: labile mood and other (altered, unfocused) Affect: animated Attitude: cooperative Thought Process: flight of ideas Thought Content: delusions Insight: poor Judgment: limited Results Labs 09/01/23 13:11 09/01/23 13:11 Labs: Laboratory Results - last 24 hr 09/01/23 09/01/23 09/01/23 13:11 13:11 15:47 WBC 6.59 RBC 4.22 Hgb 13.1 Hct 38.8 MCV 92 MCH 31.0 MCHC 33.8 RDW 12.6 Plt Count 258 MPV 9.7 Immature Gran % 0.3 Neutrophils % 70.1 Lymphocytes % 20.5 Monocytes % 7.1 Eosinophils % 1.5 Basophils % 0.5 Nucleated RBC % 0.0 Absolute Neutrophils 4.62 Absolute Lymphocytes 1.35 Absolute Monocytes 0.47 Absolute Eosinophils 0.10 Absolute Basophils 0.03 PT 10.8 INR 1.1 APTT 26.7 Sodium 141 Potassium 3.0 L Chloride 105 Carbon Dioxide 24.3 Anion Gap 11.7 H BUN 9 Creatinine 0.8 Est GFR (CKD-EPI 2020) 79.71 Glucose 85 Calcium 9.3 Magnesium 1.6 L Total Bilirubin 0.4 AST 16 ALT 29 Alkaline Phosphatase 130 H Troponin I < 50 Cancelled Total Protein 6.3 L Albumin 3.3 L Ethyl Alcohol 3.1 Cancelled Last Vital Signs Temp 36.4 C L 09/01/23 12:59 Pulse 67 09/01/23 13:16 Resp 16 09/01/23 14:10 BP 157/77 H 09/01/23 13:16 Pulse Ox 98 09/01/23 14:10 Time Spent Time spent with Patient: >75 minutes Time was spent: preparing to see the patient(eg.review tests), obtaining and/or reviewing separately otained hiistory, ordering medications,tests, procedures, referring, communicating with other health home health care worker, indepentently interpreting results, counseling the patient and care coordination
[2023-09-01] MEDS: MAGNESIUM SULFATE 2 GM/50 ML BAG IVINF (16:49)
[2023-09-01] MEDS: Normal Saline 1,000 ML 100 ML IV ×2 (16:49→18:50)
[2023-09-01] MEDS: POTASSIUM CHLORIDE 10 MEQ/100 ML BAG 100 MEQ IVINF (16:50)
[2023-09-01 18:33] LABS: Bilirubin Negative (Negative); Blood Small (Negative); Clarity Sl Cloudy (Clear); Glucose Negative (Negative); Ketones Negative (Negative); Leukocyte Esterase Large (Negative); Nitrite Negative (Negative); Specific Gravity 1.015 (1.005-1.025); Urobilinogen 0.2 mg/dL (Up to 0.2)
[2023-09-01 18:44] LABS: *AMPHETAMINES SCREEN URINE Negative (Negative); *BARBITURATES SCREEN URINE Negative (Negative); *BENZODIAZEPINES SCREEN URINE Negative (Negative); Bacteria Few HPF (Negative); C & S Indicated? Yes; Cannabinoids THC Negative (Negative); Cocaine Screen,Urine Negative (Negative); Crystals Negative HPF (Negative); Epithelial Cells Rare HPF (Negative); METHADONE URINE SCREEN Negative (Negative); Mucus Trace (Negative); OPIATES URINE SCREEN Negative (Negative); RBC 0-2 HPF (0-2); WBC >50 HPF (0-5)
[2023-09-01 18:48] LABS: Tricyclic Antidepressants Negative (Negative)
[2023-09-01] MEDS: Enoxaparin 40 MG/0.4 ML SYR SC (20:30)
[2023-09-01] MEDS: Atorvastatin 40 MG TAB PO ×2 (20:49→23:27)
[2023-09-01] MEDS: Acetaminophen 500 MG TAB 1000 MG PO (20:49)
[2023-09-01] MEDS: Melatonin 3 MG TAB PO (20:49)
[2023-09-01] MEDS: LORazepam 0.5 MG TAB PO (20:49)
[2023-09-01] MEDS: Normal Saline Flush 10 ML SYR IVP (23:10)
[2023-09-02] MEDS: Normal Saline Flush 10 ML SYR IVP ×2 (02:39→08:02)
[2023-09-02 04:11] VITALS: BP 118/61; PULSE 55; TEMP 36.2; O2SAT 97
[2023-09-02] MEDS: Normal Saline 1,000 ML 100 ML IV ×2 (05:06→14:39)
[2023-09-02] MEDS: Levothyroxine 88 MCG TAB PO (05:06)
[2023-09-02 07:25] LABS: Abs Immature Grans 0.02 10^3/uL (0.0-0.06); Absolute Basophil Count 0.03 10^3/uL (0.0-0.2); Absolute Eosinophil Count 0.17 10^3/uL (0.0-0.7); Absolute Lymphocyte Count 1.77 10^3/uL (1.2-3.4); Absolute Monocyte Count 0.46 10^3/uL (0.1-0.8); Absolute Neutrophil Count 3.92 10^3/uL (1.2-6.7); Basophils % 0.5 %; Eosinophils % 2.7 %; HCT 39.4 % (36.0-46.0); HGB 12.8 g/dL (11.2-15.7); Immature Grans % 0.3 %; Lymphocytes % 27.8 %; MCH 30.6 pg (27.0-33.0); MCHC 32.5 % (32.0-36.0); MCV 94 fL (80-95); MPV 10.2 fL (8.0-11.0); Monocytes % 7.2 %; Neutrophils % 61.5 %; Platelet Count 231 10^3/uL (130-400); RBC 4.18 10^6/uL (3.93-5.22); RDW 12.7 % (11.7-14.6); RDW-SD 43.6 fL; WBC 6.37 10^3/uL (4.4-10.8)
[2023-09-02 07:38] LABS: Anion Gap 9.4 mmol/L (3-11); BUN 7 mg/dL (7-18); CO2 24.6 mmol/L (21.0-32.0); CREATININE 0.7 mg/dL (0.55-1.02); Calcium 8.6 mg/dL (8.5-10.1); Chloride 111 mmol/L (98-107); Estimated GFR 93.56 (mL/min/1.73m2); Glucose 75 mg/dL (74-106); Potassium 3.5 mmol/L (3.5-5.1); Sodium 145 mmol/L (136-145)
[2023-09-02] MEDS: Psyllium PKT 1 EACH PO (07:54)
[2023-09-02] MEDS: Acetaminophen 500 MG TAB 1000 MG PO ×3 (07:55→20:13)
[2023-09-02] MEDS: Calcium 600mg/Vit D 200U TAB 1 TAB PO (07:56)
[2023-09-02] MEDS: Multivitamin w/Minerals TAB 1 TAB PO (07:56)
[2023-09-02] MEDS: buPROPion-CR 100 MG TABCR PO (07:57)
[2023-09-02] MEDS: Clopidogrel 75 MG TAB PO (07:58)
[2023-09-02] MEDS: Loratidine 10 MG TAB PO (07:58)
[2023-09-02] MEDS: Omega-3 Fatty Acids 1000 MG CAP PO (07:58)
[2023-09-02] MEDS: Ascorbic Acid 500 MG TAB PO (07:59)
[2023-09-02] MEDS: Famotidine 20 MG TAB PO (08:00)
[2023-09-02] MEDS: LORazepam 0.5 MG TAB PO ×2 (08:01→20:13)
[2023-09-02 08:10] VITALS: BP 140/70; PULSE 72; TEMP 36.8; O2SAT 96
[2023-09-02] MEDS: Cholecalciferol (Vitamin D3) 1,000 UNIT TAB 1000 UNITS PO (09:10)
--- NOTE | 2023-09-02 09:45 | PDOC.CMIN ---
Date of service: 09/02/23 Time of Service: 09:45 Care Management Initial Assmt Initial Assessment REASON FOR HOSPITALIZATION:: AMS, hypokalemia, hypomagnesemia PREVIOUS FUNCTIONAL STATUS/SOCIAL/FAMILY SUPPORTS:: Yaima lives alone in an apartment in [place] [facility]. She has a sister who is supportive, but does not live nearby. She has been connected with [facility] for over 20 years, both as an employee and a [employer] client. She currently has a provider at [facility], but is no longer in the [employer] program. Per report, she is independent at baseline with all ADLs, and communicates clearly. She receives [facility], and utilizes [facility] for transportation. CURRENT FUNCTIONAL STATUS:: Yaima was sitting up in her chair when CM met with her. She was unable to engage in conversation, as she was not able to form a sentence. She was speaking tangentially, and in a disorganized fashion. She met with telepsych earlier today, who recommended inpatient psychiatric treatment due to her presenting in active psychosis. CM sent referrals to [facility] and [facility], two geriatric psychiatric facilities. CM reached out to confirm that the referrals were received, and spoke to admissions who stated, at both facilities, that the referral will be reviewed on Tuesday. CM will continue to follow. ADVANCE DIRECTIVES:: HCA on file; HCA listed is Yaima's sister. Has patient been provided with info about the portal/API?: Yes Did the patient sign up for the portal?: No CODE STATUS:: Full Code INSURANCE COVERAGE / FINANCIAL ISSUES:: [facility]. Financial assistance 100%. CURRENT HOME/COMMUNITY SERVICES/EQUIPMENT:: [employer] immigration case workerKeli. [facility]. [facility]. PRIMARY CARE PHYSICIAN:: Dillon Scott POTENTIAL DISCHARGE NEEDS:: Evaluations for further needs, follow up appointments. PATIENT/FAMILY EDUCATION NEEDS:: Review discharge instructions and limitations, discussion of self care needs including ask me three. ANTICIPATED BARRIERS TO DISCHARGE:: Yaima readmitted; concerns regarding medication compliance and community support. TRANSPORTATION:: Via [facility] private vehicle vs EMS; dependent on disposition. PLAN:: Referrals were sent to [facility] and [facility] for possible geriatric inpatient psychiatric treatment. If accepted, she will likely transport via EMS, coordinated by CM. She will follow up with her PCP and discharge plan of care. CM will continue to follow. PFSH All Active Problems (Updated 08/30/23 @ 00:09 by BUNNY HOBBS) On deep vein thrombosis (DVT) prophylaxis (Acute) Contraindication to deep vein thrombosis (DVT) prophylaxis (Acute) Tardive dyskinesia (Acute) Dysarthria (Acute) Difficulty comprehending speech (Acute) Hypomagnesemia (Acute) Hypokalemia (Acute) PVD (peripheral vascular disease) (Chronic) Malaise (Acute) Low back pain (Acute) Elevated serum alkaline phosphatase level (Acute) Dystrophia unguium (Acute) Peripheral edema (Acute) Left knee pain (Acute) History of total left hip replacement (Acute 11/11/21) Schizoaffective disorder (Acute) Chronic diarrhea (Acute) Diarrhea (Chronic 05/15/12) h/o collagenous colitis 2008 on colonoscopy Edentulous (Acute 10/17/13) 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 MRSA (methicillin resistant staph aureus) culture positive (Acute 04/04/13) Hyponatremia (Acute 03/24/94) Abnormal weight loss (Acute 06/21/12) Hydradenitis (Acute) in rt upper thigh region Rash (Acute) Leg swelling (Acute) Bilateral knee pain (Acute) Left knee DJD (Chronic) Most recent injection: 08/30/22; 05/27/2021; 08/18/20; 03/31/2020 Hematuria (Acute) Thoracic aortic aneurysm (Acute) 4.[address] from 09/[address] from 10/2021 Lethargy (Acute) AMS (altered mental status) (Acute) Depression (Chronic) Hypokalemia (Acute) Hypomagnesemia (Acute) Schizoaffective disorder (Chronic) Discharge planning issues (Acute) DVT prophylaxis (Acute) Acute CVA (cerebrovascular accident) (Acute) CVA (cerebral vascular accident) (Chronic) Rash (Acute) Dry skin (Acute) Status post right hip replacement (Acute 08/05/21) Medical History GERD (gastroesophageal reflux disease) Urge urinary incontinence Osteoarthritis Hypothyroidism Folliculitis Hx of malignant neoplasm of vagina Hx MRSA infection Surgical History History of hip replacement Colonoscopy - MAC (02/14/17) Colonoscopy - MAC (01/12/11) Social History Smoking/Tobacco Use Status: Current-Occasional Tobacco Type: cigarettes Smoking risk assessment performed?: Yes Alcohol Intake: current Alcohol Intake frequency: holidays/special occasions only Drug use: Never Substance use type: does not use Housing: apartment Current gender identity: female Do you feel safe at home: Yes Do you feel safe in your relationship?: Yes Readmission Within the Past 30 Days Yes or No: Yes Date of First Admission Date of 1st Admission: 08/24/23 Date of this Admission Date of Admission: 09/01/23 This admission was: Through ED If the patient had a VNA ordered Did the patient have a VNA order?: Yes Did you call the VNA before you came?: No (VNA was present, called [facility]) If the patient had home care service Call them to discuss the patient's admission: Per Ashlee, AUGUSTINA, HH RN was at Yaima's home to complete an intake assessment. Yaima was not able to appropriately engage with the RN, therefore [facility] was called to evaluate. Yaima was evaluated and brought to [facility] for further medical and mental health work up. ED visits How many ED visits in the past 12 months: 3 Assessment for Readmission Summary of readmission circumstances, based upon interviews: Yaima returned home earlier this week, and appeared stable at the time of discharge. She had orders for HH RN, PT, OT, and KNOTTING MACHINE OPERATOR. She has a immigration case worker in the community, Keli from [facility], as well as [facility]. Per report, Yaima did not appear well when HH presented to complete their intake assessment. [facility] was called to evaluate, due to her altered mental state, and because Yaima is very familiar with [facility]. She was then brought to the ED for further medical and mental health work up. Yaima was not able to engage in this assessment; CM will continue to follow. SDOH(Care Management) Screening Will the Patient Participate in the Screening?: Unable to obtain Anticipated HH Services Anticipated HH Services at Discharge [facility] Resumption, OT, PT and RN. Following Provider: Dillon Scott.
--- NOTE | 2023-09-02 10:32 | PGE_ITS ---
Date of Service Date of service: 09/02/23 Time of Service: 15:00 Assessment and Plan Assessment and plan (1) AMS (altered mental status): Status: Acute Assessment and plan: Most likely d/t non-compliance to psych meds Resume home psych meds BMP in AM UA had trace leuk est on 08/30, repeated on 08/31 (2) Tardive dyskinesia: Status: Acute Assessment and plan: Symptoms at baseline will keep monitoring Psych consult complete, please see notes -Recommendation for inpatient psych (3) Hypomagnesemia: Status: Acute Assessment and plan: Replete Mg 2.0 today (4) Hypokalemia: Status: Acute Assessment and plan: Replete K 3.5 today BMP in AM (5) On deep vein thrombosis (DVT) prophylaxis: Status: Acute Assessment and plan: Continue LMWH (6) Discharge planning issues: Status: Acute Assessment and plan: CM to f/u [facility] patient inpatient psych recommeded and referrals sent Discussed with Dr. Ramirez Subjective Subjective Patient reports: no new complaints, tolerating liquids well, tolerating a regular diet, voiding w/o difficulty and flatus; denies diarrhea, nausea, vomiting, shortness of breath or fever Exam Narrative Exam Narrative: Constitutional The patient is sitting in a chair, eye contact is less than yesterday, laughing a lot during exam while she whispers unintelligible words The patient is without acute distress HENMT: Facial structures with normal appearance Neck: Normal ROM, no meningeal signs Neuro:alert and oriented to self, person, and somewhat in place( rehab VS hospital) . No neurological focal deficit Resp: clear lung bilaterally Cardio: regular rhythm, S1, S2, no murmur, GI: Abdomen is not distended, soft and non tender, bowel sounds are present Back/spine/Pelvis: No back tenderness, normal alignment Integumentary: No skin lesions or rash Extremities: strength 5/5 to bilateral lower and upper extremities Psych: RASS 0, congruent mood and normal affect. Psych Appearance: disheveled Mental Status: other (altered, unfocused) Speech and Movement: delayed speech and pressured speech Mood: labile mood and other (altered, unfocused) Affect: animated Attitude: cooperative Thought Process: flight of ideas Thought Content: delusions Insight: poor Judgment: limited Objective Last Vital Signs Temp 36.8 C 09/02/23 08:10 Pulse 72 09/02/23 08:10 Resp 16 09/01/23 23:19 BP 140/70 09/02/23 08:10 Pulse Ox 96 09/02/23 08:10 Laboratory Results - last 24 hr 09/01/23 09/01/23 09/01/23 13:11 13:11 15:47 WBC 6.59 RBC 4.22 Hgb 13.1 Hct 38.8 MCV 92 MCH 31.0 MCHC 33.8 RDW 12.6 Plt Count 258 MPV 9.7 Immature Gran % 0.3 Neutrophils % 70.1 Lymphocytes % 20.5 Monocytes % 7.1 Eosinophils % 1.5 Basophils % 0.5 Nucleated RBC % 0.0 Absolute Neutrophils 4.62 Absolute Lymphocytes 1.35 Absolute Monocytes 0.47 Absolute Eosinophils 0.10 Absolute Basophils 0.03 PT 10.8 INR 1.1 APTT 26.7 Sodium 141 Potassium 3.0 L Chloride 105 Carbon Dioxide 24.3 Anion Gap 11.7 H BUN 9 Creatinine 0.8 Est GFR (CKD-EPI 2020) 79.71 Glucose 85 Calcium 9.3 Magnesium 1.6 L Total Bilirubin 0.4 AST 16 ALT 29 Alkaline Phosphatase 130 H Troponin I < 50 Cancelled Total Protein 6.3 L Albumin 3.3 L Urine Color Urine Clarity Urine pH Ur Specific [place] Urine Protein Urine Ketones Urine Blood Urine Nitrite Urine Bilirubin Urine Urobilinogen Ur Leukocyte Esterase Urine RBC Urine WBC Ur Epithelial Cells Urine Crystals Urine Bacteria Urine Mucus Ur Culture Indicated? Urine Glucose Urine Opiates Screen Urine Methadone Screen Ur Barbiturates Screen Ur Tricyclics Screen Ur Amphetamines Screen U Benzodiazepines Scrn Urine Cocaine Screen Ur THC Screen Ethyl Alcohol 3.1 Cancelled 09/01/23 09/02/23 18:25 06:44 WBC 6.37 RBC 4.18 Hgb 12.8 Hct 39.4 MCV 94 MCH 30.6 MCHC 32.5 RDW 12.7 Plt Count 231 MPV 10.2 Immature Gran % 0.3 Neutrophils % 61.5 Lymphocytes % 27.8 Monocytes % 7.2 Eosinophils % 2.7 Basophils % 0.5 Nucleated RBC % 0.0 Absolute Neutrophils 3.92 Absolute Lymphocytes 1.77 Absolute Monocytes 0.46 Absolute Eosinophils 0.17 Absolute Basophils 0.03 PT INR APTT Sodium 145 Potassium 3.5 Chloride 111 H Carbon Dioxide 24.6 Anion Gap 9.4 BUN 7 Creatinine 0.7 Est GFR (CKD-EPI 2020) 93.56 Glucose 75 Calcium 8.6 Magnesium 2.0 Total Bilirubin AST ALT Alkaline Phosphatase Troponin I Total Protein Albumin Urine Color Yellow Urine Clarity Sl Cloudy Urine pH 7.0 Ur Specific [place] 1.015 Urine Protein Negative Urine Ketones Negative Urine Blood Small H Urine Nitrite Negative Urine Bilirubin Negative Urine Urobilinogen 0.2 Ur Leukocyte Esterase Large H Urine RBC 0-2 Urine WBC >50 H Ur Epithelial Cells Rare Urine Crystals Negative Urine Bacteria Few Urine Mucus Trace Ur Culture Indicated? Yes Urine Glucose Negative Urine Opiates Screen Negative Urine Methadone Screen Negative Ur Barbiturates Screen Negative Ur Tricyclics Screen Negative Ur Amphetamines Screen Negative U Benzodiazepines Scrn Negative Urine Cocaine Screen Negative Ur THC Screen Negative Ethyl Alcohol Time Spent with Patient Time Spent with Patient: >50 minutes Time was spent: preparing to see the patient(eg.review tests), obtaining and/or reviewing separately otained hiistory, ordering medications,tests, procedures, referring, communicating with other health career coordinator, indepentently interpreting results, counseling the patient and care coordination
[2023-09-02 10:57] VITALS: BP 117/76; PULSE 63; RESP 17; TEMP 36.7; O2SAT 97
--- NOTE | 2023-09-02 13:37 | W.TELEPSYCH ---
Date of service: 09/02/23 Time of Service: 13:37 Summary Note PSYCHIATRY CONSULT NOTE: INITIAL EVALUATION Name:Aquiles Wang :?[id number] Location of the patient:?[facility] IP Consulting Array Clinician:?Margarito Almanzar Location of the clinician:?[place] SUMMARY 68-year-old female, with history of anxiety disorder, schizoaffective disorder, remitted maybe a bit in the past but vague use, history of suicidal ideation, poor self-care, history of psychiatric hospitalization, with no current excessive drug use, no history of violent behavior, admitted to medicine 08/31 for AMS referred to psychiatry for psychosis, altered mental status. When seen, the patient appears to be psychotic. She is disorganized, vague, tangential, circumstantial. She alludes to some depression and possible suicidal thoughts but she has so much trouble getting her thoughts together that she cannot give me any details about any of this. She does admit that she has not been taking her medications, or not taking it as she is supposed to. She appears to be decompensated secondary to medication noncompliance which is a chronic, repeated issue for this patient. Current recommendation is for transfer to inpatient psychiatry once medically cleared. Patient does not appear to have capacity to give voluntary consent at this point. Patient is at elevated risk of danger to self. Patient presently meets criteria for inpatient psychiatric hospitalization. Working Diagnoses:?F25.0 Schizoaffective disorder; bipolar type Rule Out Diagnoses:? CPT Codes:?86330 - Psychiatric Diagnostic Evaluation with Medical Services PLAN Disposition:?Involuntary admission when medically stable, Patient does not seem to have capacity to give voluntary consent for admisison due to her psychosis ? Observation level ? Psychiatric 1:1 needed??No psych 1:1 needed Work-up:? Pharmacological:? Continue home medications while on medical floor Is patient psychotic? - Yes; Were antipsychotic medications started? - Yes Informed consent: Discussed risks and benefits of the above recommended psychiatric medications with patient, who demonstrated understanding and gave express informed consent to take the above medications as documented. Follow up needed while in the hospital??[id number] Other:? Parts of this note were dictated using voice recognition software and may contain small irregularities and grammatical errors which are unintentional. If questions arise about the psychiatric care of this patient, please call the [facility]?to request a follow-up consult. ?Please do not contact me individually through the EMR chat as I am not?regularly logged on to?this system. The psychiatrist for the follow-up visit may be a different psychiatrist Discussed plan with onsite maintenance team member:?Yes - Ghazala Lee RN HISTORY This evaluation was conducted remotely with the assistance of onsite staff via HIPAA-compliant video call. Patient consented to proceed with the telehealth visit. Requested by:?Yessi Pak MD Sources of information:?Patient, medical record History of Present Illness:? 68-year-old female, living alone, single, unemployed, with history of anxiety disorder, schizoaffective disorder, remitted maybe a bit in the past but vague use, history of suicidal ideation, poor self-care, history of psychiatric hospitalization, with no current excessive drug use, no history of violent behavior, admitted to medicine 08/31 for AMS referred to psychiatry for psychosis, altered mental status. UDS negative, Alcohol undetectable. In the hospital, patient has been in behavioral control with no reported issues. Patient presented to ED 09/01/23 with recent admission to [facility] and discharged on 08/29/23 w a chart diagnosis of schizoaffective disorder was brought in via EMS today after meeting with mental health today and stopped talking to them.She has had prior episodes where she has had difficulty speaking and not cooperating with exam, recently admitted for similar symptoms. On ED visit on 08/30 with similar presentation, negative workup including an MRI and improvement of her symptoms with home dose of Wellbutrin. Baseline tardive dyskinesia, eye contact but not answering questions, moves all extremities, withdrawing from pain stimuli on arrival. ED provider decided that given recent negative MRI with similar presentation with suspicion of a relation to her underlying psych disorder with a lot of the negative symptoms consistent with schizophrenia type picture such as though blocking, increased latency of response, poverty of speech, apathy the was no need of further imaging. Labs in the ED revealed hypokalemia and hypomagnesemia. Replacement was initiated in the emergency room. Hospitalist was consulted and patient was admitted to medical surgical floor as an inpatient for altered mental status, hypokalemia and hypomagnesemia. Spoke with Ghazala DE LA VEGA. Got report she is at her baseline but doesnt believe she is. Outpatient sent her over for AMS. Seems to be non-complaint with meds.. On psychiatric evaluation, patient is reliable, disorganized, cooperative, alert, unable to give clear history. When seen she identifies her first name. I asked why her outpatient provider sent her here and she says I guess thats what happened and 'I guess I was weak and confused. She says she has confused for 'some time but cant tell me how long. She says she wants to get my medicine the way it should be to get me better....more the way I should be. i asked if she has been taking her meds and she says 'I guess I havent been taking my medicine the way I should have been. I asked when the last them she took it was and she says thats kind of a tricky question. She cant tell me when she last took her meds, or whether she has been taking the proper amount prior to arrival. Patient is perseverating, tangential, circumstantial. She has AH of people trying to encourage me Having a hard time giving me clear history. I asked about SI and she says there may be a little tinge of it, or maybe its just depression, I'm not sure. She says she feels like I'm in between 2 worlds, or 3 worlds, its an awkward place to be I guess. She never gives me clear answer on if she thinks of suicide method.. Collateral Contacted No-- patient meets criteria for inpatient hospitalization. PSYCHIATRIC REVIEW OF SYSTEMS (symptoms in past two weeks) Pertinent Positives:?depressed mood/auditory hallucinations/command hallucinations/anxiety/impulsivity Pertinent Negatives:?no anhedonia/no hopelessness/no irritability/no aggressive behavior/no agitation/no panic attacks PSYCHIATRIC HISTORY Past Psychiatric Diagnoses/Problems:?anxiety disorder, schizoaffective disorder Psychiatric Treatment:?Hospitalizations:?psychiatric hospitalization ???Other Past treatment:?therapy, medication management ???Current treatment:?medication management, therapy Drug/Alcohol History ???Current excessive drug/alcohol use:?none ???Past excessive drug/alcohol use:?maybe a bit in the past but vague ???Drug/alcohol use comment:?Treatment:?none ???Withdrawal symptoms:?none ???UDS results:?UDS negative ???BAL results:?undetectable ???Active withdrawal Protocol:? Stressors:?treatment non-adherence, exacerbation of mental illness Trauma:?unknown Family Psychiatric History:?unknown HEALTH HISTORY Medical Problems:? hypothyroidism, GERD, osteoarthitis, cardiovascular disease, moderate chronic pain, Vaginal CA Is patient linked with PCP??yes Psychiatric and other clinically relevant medications:?Wellbutrin 100 mg p.o. every morning, Clozapine 125 mg nightly Allergies/Adverse Medication Reactions:?Chlorpheniramine, erythromycin, penicillin Physical Findings:?no clinically significant changes in vital signs, hypomagnesemia DEMOGRAPHICS/SOCIAL HISTORY Gender:?female Living Situation:?living alone Relationship Status:?single Education:?unknown Employment:?unemployed Social Support Network:?unknown Legal History:?none Special Considerations:?none RISK EVALUATION Suicidality/self-injury:?Yes suicidal ideation Primary Suicide Screening (PSS-3) 1. In the past two weeks, have you felt down, depressed, or hopeless??YES 2. In the past two weeks, have you had thoughts of killing yourself??YES 3. In your lifetime, have you ever attempted to kill yourself??NO 3a. Within the past 6 months??NO ESS-6 Secondary Screen (If #2 is yes or #3a is yes within the past 6 months, then complete secondary screen) 1. Positive on PSS-3 questions 2 & 3 ? active suicidal ideation with a past attempt??NO 2. Have you been thinking about how you might kill yourself??NO 3. Have you had some intention of acting on your thoughts??NO 4. Lifetime psychiatric hospitalization??YES 5. Has drinking or substance abuse ever been a problem for you??YES 6. Current irritability, agitation, or aggression??NO PSS-3/ESS-6 Secondary Screen Scoring:?Mild PSS-3/ESS-6 Scoring Interpretation Legend PSS-3 screen incomplete [Blank PSS-3 questions #2 OR #3a] PSS-3 screen unable to assess [Unable to Assess responses on PSS-3 questions #2 AND #3a] Mild [No current attempt AND No suicide plan or intent AND Score (0-2)] Moderate [No current attempt AND Active suicidal ideation with plan or intent (not both) OR Score (3-4)] Severe [Current attempt OR Suicide plan and intent OR Score (5-6)] HI/Violence/Property Destruction:?no history of violent/aggressive behavior Access to Firearms:?none Grave disability/Poor self-care:?yes poor self-care, medical neglect Psychosis:?Yes Protective Factors:? High Utilization Criteria:?none Signs of Secondary Gain:?none MENTAL STATUS EXAM Appearance and Attire:? Normal Psychomotor agitation:? No abnormality Attitude and behavior:? Cooperative Speech:? Slow, Increased latency, halting, seems to be having trouble with word finding Mood:? Depressed Affect:? Constricted Thought Process:? Not linear, Not logical, Incoherent, Circumstantial, Tangential, Vague Thought content:? Suicidal ideation, No homicidal ideation, No paranoia, Delusions Perception:? Auditory hallucinations Intelligence:? Average Abstraction:? Appropriate Language:? Impaired to Word finding Orientation:? Grossly oriented Sensorium:? Distractible Knowledge:?unable to assess Memory:? Insight:? Severe impairment Judgment:? Severe impairment SUMMARY RISK ASSESSMENT Current Suicide Risk Elevated??PSS-3/ESS-6 Scoring: Mild? Current Violence Risk Elevated??No Issues with ability to care for self.?No Margarito Almanzar , [facility]
[2023-09-02 15:59] VITALS: BP 118/73; PULSE 74; RESP 18; TEMP 37; O2SAT 98
[2023-09-02] MEDS: Enoxaparin 40 MG/0.4 ML SYR SC (17:29)
[2023-09-02 19:43] VITALS: BP 121/74; PULSE 65; RESP 18; TEMP 36.6; O2SAT 97
[2023-09-02] MEDS: Atorvastatin 40 MG TAB PO (20:13)
[2023-09-03] MEDS: Normal Saline 1,000 ML 100 ML IV (05:02)
[2023-09-03] MEDS: Normal Saline Flush 10 ML SYR IVP ×3 (05:04→20:37)
[2023-09-03] MEDS: Levothyroxine 88 MCG TAB PO (05:05)
[2023-09-03 06:23] VITALS: BP 120/65; PULSE 69; RESP 18; TEMP 36; O2SAT 98
[2023-09-03 06:53] LABS: Abs Immature Grans 0.01 10^3/uL (0.0-0.06); Absolute Basophil Count 0.04 10^3/uL (0.0-0.2); Absolute Eosinophil Count 0.11 10^3/uL (0.0-0.7); Absolute Lymphocyte Count 0.96 10^3/uL (1.2-3.4); Absolute Monocyte Count 0.41 10^3/uL (0.1-0.8); Absolute Neutrophil Count 5.74 10^3/uL (1.2-6.7); Basophils % 0.6 %; Eosinophils % 1.5 %; HCT 39.9 % (36.0-46.0); Immature Grans % 0.1 %; Lymphocytes % 13.2 %; MCH 30.6 pg (27.0-33.0); MCHC 32.6 % (32.0-36.0); MCV 94 fL (80-95); MPV 9.9 fL (8.0-11.0); Monocytes % 5.6 %; Platelet Count 232 10^3/uL (130-400); RBC 4.25 10^6/uL (3.93-5.22); RDW 12.7 % (11.7-14.6); RDW-SD 43.8 fL; WBC 7.27 10^3/uL (4.4-10.8)
[2023-09-03 07:07] LABS: Anion Gap 11.7 mmol/L (3-11); BUN 10 mg/dL (7-18); CO2 22.3 mmol/L (21.0-32.0); CREATININE 0.7 mg/dL (0.55-1.02); Calcium 9.1 mg/dL (8.5-10.1); Chloride 111 mmol/L (98-107); Estimated GFR 93.56 (mL/min/1.73m2); Glucose 86 mg/dL (74-106); Sodium 145 mmol/L (136-145)
[2023-09-03 07:12] LABS: Potassium 2.7 mmol/L (3.5-5.1)
[2023-09-03 07:35] VITALS: BP 131/75; PULSE 69; RESP 16; TEMP 36.1; O2SAT 97
[2023-09-03] MEDS: Psyllium PKT 1 EACH PO (09:01)
[2023-09-03] MEDS: POTASSIUM CHLORIDE 20 MEQ/100 ML BAG 50 MEQ IVINF ×2 (09:02→11:22)
[2023-09-03] MEDS: buPROPion-CR 100 MG TABCR PO (09:03)
[2023-09-03] MEDS: LORazepam 0.5 MG TAB PO ×2 (09:03→20:39)
[2023-09-03] MEDS: Famotidine 20 MG TAB PO (09:03)
[2023-09-03] MEDS: Acetaminophen 500 MG TAB 1000 MG PO ×3 (09:03→20:38)
[2023-09-03] MEDS: Cholecalciferol (Vitamin D3) 1,000 UNIT TAB 1000 UNITS PO (09:03)
[2023-09-03] MEDS: Omega-3 Fatty Acids 1000 MG CAP PO (09:03)
[2023-09-03] MEDS: Calcium 600mg/Vit D 200U TAB 1 TAB PO (09:03)
[2023-09-03] MEDS: Clopidogrel 75 MG TAB PO (09:03)
[2023-09-03] MEDS: Ascorbic Acid 500 MG TAB PO (09:03)
[2023-09-03] MEDS: Loratidine 10 MG TAB PO (09:04)
[2023-09-03] MEDS: Multivitamin w/Minerals TAB 1 TAB PO (09:04)
[2023-09-03 10:06] LABS: Lab Add On Test DONE
[2023-09-03 10:13] LABS: Magnesium 1.8 mg/dL (1.8-2.4)
--- NOTE | 2023-09-03 10:21 | PGE_ITS ---
Date of Service Date of service: 09/03/23 Time of Service: 10:21 Assessment and Plan Assessment and plan (1) AMS (altered mental status): Status: Acute Assessment and plan: Most likely from inconsistently taking her psychiatric medicines at home psych consultation was completed, please see notes -Recommendation for inpatient psych and referral sent w/o offers -Involuntary admission when medically stable as Dr. Almanzar wrotePatient does not seem to have capacity to give voluntary consent for admisison due to her psychosis -Will continue home meds BMP in AM (2) UTI (urinary tract infection): Status: Acute Assessment and plan: UA from 08/30 with GNR with AMS w/o leukocytosis, CVA tenderness, dysuria or fever, Continue antibiotics while awaiting for further results on culture (3) Tardive dyskinesia: Status: Acute Assessment and plan: Symptoms at baseline will keep monitoring (4) Hypomagnesemia: Status: Acute Assessment and plan: Mg 2.0 on 09/01, mg level added to AM blood in the setting of hypokalemia (5) Hypokalemia: Status: Acute Assessment and plan: K 2.7 today, replacement in progress and adding Mg level to AM blood BMP in AM (6) On deep vein thrombosis (DVT) prophylaxis: Status: Acute Assessment and plan: Continue LMWH (7) Discharge planning issues: Status: Acute Assessment and plan: CM to f/u [facility] patient Inpatient psych recommeded and referrals sent, no offers palliative care consult Discussed with Dr. Ramirez Subjective Subjective Patient reports: no new complaints, feels better, tolerating liquids well, tolerating a regular diet, voiding w/o difficulty, flatus, no bowel movement (Patient denies BM, small liquid on 09/01) and other (Sleeping well); denies still having pain, diarrhea, nausea, vomiting or fever Exam Narrative Exam Narrative: Constitutional The patient is sitting in a chair, delayed in answering questions, contact is better than yesterday,less episode of unprovoked laughing Patient is asking pertinent questions such as mother's day this weekend The patient is without acute distress Neuro:alert and oriented to self, person, and time ( August 2023), somewhat in place( rehab VS hospital again today) . No focal deficit findings Resp: clear lung bilaterally Cardio: regular rhythm, S1, S2, trace edema to LE's GI: Abdomen is not distended, soft and non tender, bowel sounds are present : No CVA tenderness Extremities: strength 5/5 to bilateral lower and upper extremities Psych: RASS 0, congruent mood and normal affect. Psych Appearance: disheveled Mental Status: other (altered, unfocused) Speech and Movement: delayed speech and pressured speech Mood: labile mood and other (altered, unfocused) Affect: animated Attitude: cooperative Thought Process: flight of ideas Thought Content: delusions Insight: poor Judgment: limited Objective Last Vital Signs Temp 36.1 C L 09/03/23 07:35 Pulse 69 09/03/23 07:35 Resp 16 09/03/23 07:35 BP 131/75 09/03/23 07:35 Pulse Ox 97 09/03/23 07:35 Laboratory Results - last 24 hr 09/03/23 06:03 WBC 7.27 RBC 4.25 Hgb 13.0 Hct 39.9 MCV 94 MCH 30.6 MCHC 32.6 RDW 12.7 Plt Count 232 MPV 9.9 Immature Gran % 0.1 Neutrophils % 79.0 Lymphocytes % 13.2 Monocytes % 5.6 Eosinophils % 1.5 Basophils % 0.6 Nucleated RBC % 0.0 Absolute Neutrophils 5.74 Absolute Lymphocytes 0.96 L Absolute Monocytes 0.41 Absolute Eosinophils 0.11 Absolute Basophils 0.04 Sodium 145 Potassium 2.7 L* Chloride 111 H Carbon Dioxide 22.3 Anion Gap 11.7 H BUN 10 Creatinine 0.7 Est GFR (CKD-EPI 2020) 93.56 Glucose 86 Calcium 9.1 Magnesium 1.8 Add-On Test Request DONE Time Spent with Patient Time Spent with Patient: >50 minutes Time was spent: preparing to see the patient(eg.review tests), obtaining and/or reviewing separately otained hiistory, ordering medications,tests, procedures, referring, communicating with other health critical care nurse practitioner, indepentently interpreting results, counseling the patient and care coordination
[2023-09-03] MEDS: Potassium Chloride 20 MEQ TABCR PO (10:36)
[2023-09-03] MEDS: MacroBID 100 MG CAP PO ×2 (10:36→20:38)
[2023-09-03 11:51] VITALS: BP 147/85; PULSE 76; RESP 16; TEMP 36.2; O2SAT 97
[2023-09-03 15:25] VITALS: BP 149/84; PULSE 67; RESP 16; TEMP 35.4; O2SAT 98
[2023-09-03 15:38] LABS: C Diff PCR Negative (Negative)
[2023-09-03] MEDS: Enoxaparin 40 MG/0.4 ML SYR SC (17:55)
[2023-09-03 19:20] VITALS: BP 124/84; PULSE 78; RESP 20; TEMP 36; O2SAT 96
[2023-09-03] MEDS: Potassium Chloride 20 MEQ TABCR 40 MEQ PO (20:38)
[2023-09-03] MEDS: Atorvastatin 40 MG TAB PO (20:39)
[2023-09-03] MEDS: Melatonin 3 MG TAB PO (20:39)
[2023-09-03] MEDS: Docusate Sodium 100 MG CAP PO (20:40)
[2023-09-04] MEDS: Levothyroxine 88 MCG TAB PO (05:52)
[2023-09-04 06:03] VITALS: BP 139/69; PULSE 69; RESP 16; TEMP 36.4; O2SAT 98
[2023-09-04 07:06] LABS: BUN 8 mg/dL (7-18); CREATININE 0.7 mg/dL (0.55-1.02); Calcium 9.4 mg/dL (8.5-10.1); Chloride 114 mmol/L (98-107); Estimated GFR 93.56 (mL/min/1.73m2); Glucose 80 mg/dL (74-106); Magnesium 1.6 mg/dL (1.8-2.4); Potassium 3.9 mmol/L (3.5-5.1); Sodium 145 mmol/L (136-145)
[2023-09-04 07:21] VITALS: BP 129/82; PULSE 82; RESP 18; TEMP 36.7; O2SAT 97
[2023-09-04] MEDS: Psyllium PKT 1 EACH PO (09:46)
[2023-09-04] MEDS: Loratidine 10 MG TAB PO (09:47)
[2023-09-04] MEDS: Ascorbic Acid 500 MG TAB PO (09:47)
[2023-09-04] MEDS: Famotidine 20 MG TAB PO (09:47)
[2023-09-04] MEDS: buPROPion-CR 100 MG TABCR PO (09:47)
[2023-09-04] MEDS: Multivitamin w/Minerals TAB 1 TAB PO (09:47)
[2023-09-04] MEDS: Calcium 600mg/Vit D 200U TAB 1 TAB PO (09:47)
[2023-09-04] MEDS: LORazepam 0.5 MG TAB PO ×2 (09:47→21:48)
[2023-09-04] MEDS: Clopidogrel 75 MG TAB PO (09:47)
[2023-09-04] MEDS: Omega-3 Fatty Acids 1000 MG CAP PO (09:47)
[2023-09-04] MEDS: Cholecalciferol (Vitamin D3) 1,000 UNIT TAB 1000 UNITS PO (09:47)
[2023-09-04] MEDS: Acetaminophen 500 MG TAB 1000 MG PO ×2 (09:47→14:08)
[2023-09-04] MEDS: Normal Saline Flush 10 ML SYR IVP ×2 (09:47→21:54)
[2023-09-04] MEDS: MacroBID 100 MG CAP PO (09:47)
[2023-09-04] MEDS: Docusate Sodium 100 MG CAP PO (09:48)
[2023-09-04] MEDS: Potassium Chloride 20 MEQ TABCR 40 MEQ PO ×2 (09:48→21:46)
--- NOTE | 2023-09-04 09:56 | PGE_ITS ---
Date of Service Date of service: 09/04/23 Time of Service: 09:59 Assessment and Plan Assessment and plan (1) AMS (altered mental status): Status: Acute Assessment and plan: Most likely from inconsistently taking her psychiatric medicines at home psych consultation was completed, please see notes -Recommendation for inpatient psych and referral sent ; pending offers -Involuntary admission when medically stable as Dr. Almanzar wrotePatient does not seem to have capacity to give voluntary consent for admisison due to her psychosis - Most likley not the best option as patient is most likley to agree d/t good experience in previous inaptient stays -Will continue home meds BMP in AM (2) UTI (urinary tract infection): Status: Acute Assessment and plan: UA from 08/30 with GNR with AMS w/o leukocytosis, CVA tenderness, dysuria or fever, Klebsiella in urine; Fosfomycyn 3gm oral given (3) Tardive dyskinesia: Status: Acute Assessment and plan: Symptoms at baseline will keep monitoring (4) Hypomagnesemia: Status: Acute Assessment and plan: Mg 1.6 replete Mg in AM (5) Hypokalemia: Status: Acute Assessment and plan: Resolved BMP in AM (6) On deep vein thrombosis (DVT) prophylaxis: Status: Acute Assessment and plan: Continue Lovenox (7) Discharge planning issues: Status: Acute Assessment and plan: CM to f/u follwed by [facility]O Inpatient psych recommended and referrals to [facility] and [facility] palliative care consult Discussed with Dr. Hemphill Subjective Subjective Patient reports: no new complaints, feels better, tolerating a regular diet and voiding w/o difficulty; denies still having pain, nausea, vomiting, shortness of breath or fever Exam Narrative Exam Narrative: Constitutional The patient is sitting in a chair, still delayed in answering questions but improved, The patient is without acute distress Neuro:alert and oriented to self, person, and time ( August 2023), somewhat in place( rehab VS hospital again today) but easier to reorient . No focal deficit findings Resp: clear lung bilaterally Cardio: regular rhythm, S1, S2,Tele HR SR 70-80 GI: Abdomen is not distended, soft and non tender, bowel sounds are present : No CVA tenderness Extremities: strength 5/5 to bilateral lower and upper extremities Psych: RASS 0, congruent mood and normal affect. Psych Appearance: disheveled Mental Status: other (altered, unfocused) Speech and Movement: delayed speech and pressured speech Mood: labile mood and other (altered, unfocused) Affect: animated Attitude: cooperative Thought Process: flight of ideas Thought Content: delusions Insight: poor Judgment: limited Objective Last Vital Signs Temp 36.7 C 09/04/23 07:21 Pulse 82 09/04/23 07:21 Resp 18 09/04/23 07:21 BP 129/82 09/04/23 07:21 Pulse Ox 97 09/04/23 07:21 Laboratory Results - last 24 hr 09/03/23 09/03/23 09/04/23 06:03 13:00 06:28 Sodium 145 Potassium 3.9 D Chloride 114 H Carbon Dioxide 19.0 L Anion Gap 12.0 H BUN 8 Creatinine 0.7 Est GFR (CKD-EPI 2020) 93.56 Glucose 80 Calcium 9.4 Magnesium 1.8 1.6 L Stl C.difficile Tox PCR Negative Add-On Test Request DONE Time Spent with Patient Time Spent with Patient: >50 minutes Time was spent: preparing to see the patient(eg.review tests), obtaining and/or reviewing separately otained hiistory, ordering medications,tests, procedures, referring, communicating with other health workforce investment act career manager, indepentently interpreting results, counseling the patient and care coordination
[2023-09-04] MEDS: MAGNESIUM SULFATE 2 GM/50 ML BAG IVINF (10:40)
[2023-09-04 11:19] VITALS: BP 129/76; PULSE 73; RESP 17; TEMP 36.4; O2SAT 97
[2023-09-04] MEDS: Fosfomycin Tromethamine 3 GM PACKET PO (11:43)
[2023-09-04 15:34] VITALS: BP 144/102; PULSE 68; RESP 16; TEMP 36.4; O2SAT 99
[2023-09-04] MEDS: Enoxaparin 40 MG/0.4 ML SYR SC (18:00)
[2023-09-04 19:45] VITALS: BP 131/103; PULSE 85; RESP 22; TEMP 35.6; O2SAT 98
[2023-09-04] MEDS: Melatonin 3 MG TAB PO (21:50)
[2023-09-05 05:46] VITALS: BP 151/81; PULSE 76; RESP 22; TEMP 36; O2SAT 96
[2023-09-05] MEDS: Levothyroxine 88 MCG TAB PO (06:13)
[2023-09-05 07:20] LABS: Anion Gap 11.2 mmol/L (3-11); BUN 8 mg/dL (7-18); CO2 21.8 mmol/L (21.0-32.0); CREATININE 0.8 mg/dL (0.55-1.02); Calcium 9.6 mg/dL (8.5-10.1); Chloride 112 mmol/L (98-107); Estimated GFR 79.71 (mL/min/1.73m2); Glucose 85 mg/dL (74-106); Magnesium 1.9 mg/dL (1.8-2.4); Potassium 4.3 mmol/L (3.5-5.1); Sodium 145 mmol/L (136-145)
[2023-09-05] MEDS: LORazepam 0.5 MG TAB PO ×2 (09:07→19:57)
[2023-09-05] MEDS: Cholecalciferol (Vitamin D3) 1,000 UNIT TAB 1000 UNITS PO (09:07)
[2023-09-05] MEDS: Ascorbic Acid 500 MG TAB PO (09:07)
[2023-09-05] MEDS: Clopidogrel 75 MG TAB PO (09:07)
[2023-09-05] MEDS: Calcium 600mg/Vit D 200U TAB 1 TAB PO (09:07)
[2023-09-05] MEDS: Omega-3 Fatty Acids 1000 MG CAP PO (09:07)
[2023-09-05] MEDS: Acetaminophen 500 MG TAB 1000 MG PO ×2 (09:07→17:43)
[2023-09-05] MEDS: Famotidine 20 MG TAB PO (09:07)
[2023-09-05] MEDS: Multivitamin w/Minerals TAB 1 TAB PO (09:07)
[2023-09-05] MEDS: Loratidine 10 MG TAB PO (09:07)
[2023-09-05] MEDS: buPROPion-CR 100 MG TABCR PO (09:07)
[2023-09-05] MEDS: Psyllium PKT 1 EACH PO (09:08)
[2023-09-05] MEDS: Potassium Chloride 20 MEQ TABCR 40 MEQ PO ×2 (09:08→20:01)
[2023-09-05 15:09] VITALS: BP 123/88; PULSE 79; RESP 19; TEMP 37.2; O2SAT 97
--- NOTE | 2023-09-05 15:57 | CMPROGNOTE_ITS ---
Date of service: 09/05/23 Time of Service: 15:57 Care Management Progress Note Progress Note Text Progress Note Text: S/O: Yaima was sitting up in her chair when CM met with her. She stated that she is doing so so, but reported feeling better than when she arrived. She was much more engaged with CM then she was on Tuesday, when CM saw her last, although she continues to have word finding difficulty. She expressed some concern about her insurance paying for her hospital stay, and needing to pay her rent at home, and at one point asked if she should get dressed and go. CM encouraged her to remain inpatient, and discussed her plan of going to inpatient psychiatric treatment. She is agreeable to this plan, although she again expressed concern about her insurance coverage. CM reviewed her chart; she has MCR A&B, as well as financial assistance of 100% at [facility]. CM spoke to Mathew at [facility] geriatric psychiatric facility, who is reviewing her referral. [facility] is looking for Yaima to have a [facility] named prior to her transfer; CM replied that it may not be possible, given her current mental capacity. RITESH stated that [facility] would be willing to take Yaima back upon discharge if she is not able to return to her apartment in [facility]. Mathew stated that he would discuss this further with his team, and would contact CM tomorrow with a decision. CM will continue to follow. A: Yaima is a 68 year old female admitted to [facility] on 09/01/23 for AMS. P: Yaima met with telepsychiatry, who recommends inpatient psychiatric treatment. Referrals were sent to [facility] and [facility] for possible geriatric inpatient psychiatric treatment. If accepted, she will likely transport via EMS, coordinated by CM. She will follow up with her PCP and discharge plan of care. CM will continue to follow. SDOH(Care Management) Screening Will the Patient Participate in the Screening?: Unable to obtain
[2023-09-05] MEDS: Enoxaparin 40 MG/0.4 ML SYR SC (17:50)
[2023-09-05] MEDS: Melatonin 3 MG TAB PO (20:01)
[2023-09-05] MEDS: Atorvastatin 40 MG TAB PO (20:02)
[2023-09-05] MEDS: Docusate Sodium 100 MG CAP PO (20:04)
[2023-09-05 21:25] VITALS: BP 158/112; PULSE 77; RESP 20; TEMP 35.9; O2SAT 97
[2023-09-05 23:36] VITALS: BP 130/80; PULSE 82; RESP 17; TEMP 36.6; O2SAT 97
[2023-09-06 03:19] VITALS: BP 137/63; PULSE 71; RESP 16; TEMP 36.2; O2SAT 98
[2023-09-06 07:18] LABS: Abs Immature Grans 0.01 10^3/uL (0.0-0.06); Absolute Basophil Count 0.04 10^3/uL (0.0-0.2); Absolute Eosinophil Count 0.26 10^3/uL (0.0-0.7); Absolute Monocyte Count 0.47 10^3/uL (0.1-0.8); Absolute Neutrophil Count 3.01 10^3/uL (1.2-6.7); Basophils % 0.7 %; Eosinophils % 4.5 %; HCT 39.5 % (36.0-46.0); HGB 13.3 g/dL (11.2-15.7); Immature Grans % 0.2 %; Lymphocytes % 34.5 %; MCH 31.3 pg (27.0-33.0); MCHC 33.7 % (32.0-36.0); MCV 93 fL (80-95); MPV 10.1 fL (8.0-11.0); Monocytes % 8.1 %; Platelet Count 271 10^3/uL (130-400); RBC 4.25 10^6/uL (3.93-5.22); RDW 13.1 % (11.7-14.6); RDW-SD 44.4 fL; WBC 5.79 10^3/uL (4.4-10.8)
[2023-09-06 07:32] LABS: Anion Gap 8.8 mmol/L (3-11); BUN 10 mg/dL (7-18); CO2 24.2 mmol/L (21.0-32.0); CREATININE 0.8 mg/dL (0.55-1.02); Calcium 9.4 mg/dL (8.5-10.1); Chloride 112 mmol/L (98-107); Estimated GFR 79.71 (mL/min/1.73m2); Glucose 82 mg/dL (74-106); Magnesium 1.8 mg/dL (1.8-2.4); Potassium 4.7 mmol/L (3.5-5.1); Sodium 145 mmol/L (136-145)
[2023-09-06 07:38] VITALS: BP 131/81; PULSE 84; RESP 20; TEMP 35.5; O2SAT 98
[2023-09-06] MEDS: LORazepam 0.5 MG TAB PO (09:06)
[2023-09-06] MEDS: Potassium Chloride 20 MEQ TABCR 40 MEQ PO (09:08)
[2023-09-06] MEDS: Cholecalciferol (Vitamin D3) 1,000 UNIT TAB 1000 UNITS PO (09:08)
[2023-09-06] MEDS: Psyllium PKT 1 EACH PO (09:08)
[2023-09-06] MEDS: Clopidogrel 75 MG TAB PO (09:09)
[2023-09-06] MEDS: Ascorbic Acid 500 MG TAB PO (09:09)
[2023-09-06] MEDS: Omega-3 Fatty Acids 1000 MG CAP PO (09:09)
[2023-09-06] MEDS: Docusate Sodium 100 MG CAP PO (09:09)
[2023-09-06] MEDS: Loratidine 10 MG TAB PO (09:09)
[2023-09-06] MEDS: buPROPion-CR 100 MG TABCR PO (09:09)
[2023-09-06] MEDS: Multivitamin w/Minerals TAB 1 TAB PO (09:09)
[2023-09-06] MEDS: Calcium 600mg/Vit D 200U TAB 1 TAB PO (09:09)
[2023-09-06] MEDS: Famotidine 20 MG TAB PO (09:10)
[2023-09-06] MEDS: Acetaminophen 500 MG TAB 1000 MG PO ×2 (09:10→14:47)
--- NOTE | 2023-09-06 09:30 | CMPROGNOTE_ITS ---
Date of service: 09/06/23 Time of Service: 09:30 Care Management Progress Note Progress Note Text Progress Note Text: S/O: Yaima accepted a bed offer at [facility] in [facility] for inpatient psychiatric stabilization. Yaima's Community C oordinator Ashlee and Community Engineered Wood Designer Emmie are notified and in support of this discharge plan. Ashlee came to visit Yaima prior to her discharge and went out to her home to get her personal belongings and cell phone with Yaima's permission. Emmie has agreed to contact her landlord because late rent is another concern she is having. Per, Emmie her rent is often late and she has lived in her apartment for 20 years so she doesn't foresee any issues. CM coordinated discharge with Mathew at [facility] . As previously stated yesterday, [facility] would be willing to take Yaima back upon discharge if she is not able to return to her apartment in [place] [facility]. A letter was written to support this at [facility]'s request. CM will continue to follow. A: Yaima is a 68 year old female admitted to [facility] on 09/01/23 for AMS. P: Yaima met with telepsychiatry, who recommends inpatient psychiatric treatment. Referrals were sent to [facility] and [facility] for possible geriatric inpatient psychiatric treatment. If accepted, she will likely transport via EMS, coordinated by CM. She will follow up with her PCP and discharge plan of care. CM will continue to follow. SDOH(Care Management) Screening Will the Patient Participate in the Screening?: Unable to obtain
[2023-09-06] MEDS: Levothyroxine 88 MCG TAB PO (11:00)
[2023-09-06 11:09] VITALS: BP 130/87; PULSE 74; RESP 18; TEMP 35.7; O2SAT 94
--- NOTE | 2023-09-06 13:38 | PCNE_ITS ---
Date of service: 09/06/23 Time of Service: 14:23 History of Present Illness Narrative: Yaima Wang is a 68-year-old woman from [facility] was admitted to [facility] about 2 weeks ago with acute mental status changes/encephalopathy. Ultimately this was felt to be multifactorial due to not taking her psychiatric medicines for schizoaffective disorder and she was discharged on . She had to be readmitted 3 days later with similar symptoms (acute change in mental status, possible psychosis). Once again workup was unremarkable with negative imaging. And it does appear she had not been taking her medications since discharge. She remains in the hospital for further diagnostics, treatment and discharge planning. Yaima has a known history of schizoaffective disorder. She has had several episodes of with difficulty speaking and what appears to be change in mental status. Also has a history of tardive dyskinesia, peripheral vascular disease, GERD, hypothyroidism, MRSA, thoracic aortic aneurysm, Care Team: Primary Care physician: Dillon Scott MD, [facility]: BETO, nurse staff community health Emmie. Support person Jazmine Social HX: Lives alone in an apartment in [facility] Marital Status: Occupation: Children: Hobbies: Supportive sister does not live nearby Additional Services: Meals on Wheels [facility] BETO shelter case manager Impression of currents health status: What bothers you the most: What worries you the most: Goals: Current information preferences: Function: Ambulation: ADLs: iADLs: Hearing: Vision: Cognition: Falls: Driving: Palliative Performance Scale % Ambulation Activity and Evidence of Disease Self Care Intake Level of Consciousness 100 Full Normal activity, no evidence of disease Full Normal Full 90 Full Normal activity, some evidence of disease Full Normal Full 80 Full Normal activity with effort, some evidence of disease Full Normal or reduced Full 70 Reduced Unable to do normal work, some evidence of disease Full Normal or reduced Full 60 Reduced Unable to do hobby or some housework, significant disease Occasional assist necessary Normal or reduced Full or confusion 50 Mainly sit/lie Unable to do any work, extensive disease Considerable assistance required Normal or reduced Full or confusion 40 Mainly in bed Unable to do any work, extensive disease Mainly assistance Normal or reduced Full, drowsy, or confusion 30 Totally bed bound Unable to do any work, extensive disease Total care Reduced Full, drowsy, or confusion 20 Totally bed bound Unable to do any work, extensive disease Total care Minimal sips Full, drowsy, or confusion 10 Totally bed bound Unable to do any work, extensive disease Total care Mouth care only Drowsy or coma 0 - - - - Patient Score: Spiritual history: Palliative review of systems: Pain: Dyspnea: GI symptoms: Appetite: Weight overall stable over the last several years Depression: Anxiety: None Emotional Distress: Spiritual/Existential Distress: Labs: Cr: 0.8 Liver panel: NL Albumin: 3.3 CBC: Hemoglobin 13.3 Advanced Care Planning: Advanced Directive: None on file Health Care Agent: 2020 healthcare agent form: Shanice Armand COLST: Limitations: PFSH All Active Problems (Updated 08/30/23 @ 00:09 by BUNNY HOBBS) UTI (urinary tract infection) (Acute) On deep vein thrombosis (DVT) prophylaxis (Acute) Contraindication to deep vein thrombosis (DVT) prophylaxis (Acute) Tardive dyskinesia (Acute) Dysarthria (Acute) Difficulty comprehending speech (Acute) Hypomagnesemia (Acute) Hypokalemia (Acute) PVD (peripheral vascular disease) (Chronic) Malaise (Acute) Low back pain (Acute) Elevated serum alkaline phosphatase level (Acute) Dystrophia unguium (Acute) Peripheral edema (Acute) Left knee pain (Acute) History of total left hip replacement (Acute 11/11/21) Schizoaffective disorder (Acute) Chronic diarrhea (Acute) Diarrhea (Chronic 05/15/12) h/o collagenous colitis 2008 on colonoscopy Edentulous (Acute 10/17/13) 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 MRSA (methicillin resistant staph aureus) culture positive (Acute 04/04/13) Hyponatremia (Acute 11/30/94) Abnormal weight loss (Acute 06/21/12) Hydradenitis (Acute) in rt upper thigh region Rash (Acute) Leg swelling (Acute) Bilateral knee pain (Acute) Left knee DJD (Chronic) Most recent injection: 08/30/22; 05/27/2021; 08/18/20; 03/31/2020 Hematuria (Acute) Thoracic aortic aneurysm (Acute) 4.[address] from 09/[address] from 10/2021 Lethargy (Acute) AMS (altered mental status) (Acute) Depression (Chronic) Hypokalemia (Acute) Hypomagnesemia (Acute) Schizoaffective disorder (Chronic) Discharge planning issues (Acute) DVT prophylaxis (Acute) Acute CVA (cerebrovascular accident) (Acute) CVA (cerebral vascular accident) (Chronic) Rash (Acute) Dry skin (Acute) Status post right hip replacement (Acute 08/05/21) Medical History GERD (gastroesophageal reflux disease) Urge urinary incontinence Osteoarthritis Hypothyroidism Folliculitis Hx of malignant neoplasm of vagina Hx MRSA infection Surgical History History of hip replacement Colonoscopy - MAC (02/14/17) Colonoscopy - MAC (01/12/11) Social History Smoking/Tobacco Use Status: Current-Occasional Tobacco Type: cigarettes Smoking risk assessment performed?: Yes Alcohol Intake: current Alcohol Intake frequency: holidays/special occasions only Drug use: Never Substance use type: does not use Housing: apartment Current gender identity: female Do you feel safe at home: Yes Do you feel safe in your relationship?: Yes Results Last Vital Signs Temp 35.7 C L 09/06/23 11:09 Pulse 74 09/06/23 11:09 Resp 18 09/06/23 11:09 BP 130/87 09/06/23 11:09 Pulse Ox 94 09/06/23 11:09 Labs 09/06/23 06:30 09/06/23 06:30 Labs: Laboratory Results - last 24 hr 09/06/23 06:30 WBC 5.79 RBC 4.25 Hgb 13.3 Hct 39.5 MCV 93 MCH 31.3 MCHC 33.7 RDW 13.1 Plt Count 271 MPV 10.1 Immature Gran % 0.2 Neutrophils % 52.0 Lymphocytes % 34.5 Monocytes % 8.1 Eosinophils % 4.5 Basophils % 0.7 Nucleated RBC % 0.0 Absolute Neutrophils 3.01 Absolute Lymphocytes 2.00 Absolute Monocytes 0.47 Absolute Eosinophils 0.26 Absolute Basophils 0.04 Sodium 145 Potassium 4.7 Chloride 112 H Carbon Dioxide 24.2 Anion Gap 8.8 BUN 10 Creatinine 0.8 Est GFR (CKD-EPI 2020) 79.71 Glucose 82 Calcium 9.4 Magnesium 1.8
--- NOTE | 2023-09-06 15:03 | DSE_ITS ---
Date of service: 09/06/23 Time of Service: 15:03 DS: Diagnosis Discharge Diagnosis (1) AMS (altered mental status): Status: Acute (2) UTI (urinary tract infection): Status: Acute (3) Tardive dyskinesia: Status: Acute (4) Hypomagnesemia: Status: Acute (5) Hypokalemia: Status: Acute (6) On deep vein thrombosis (DVT) prophylaxis: Status: Acute (7) Discharge planning issues: Status: Acute Discharge Plan Disposition Patient Disposition: Psychiatric Hospital/Unit Specific Psychiatric Facility: Other Condition: Stable Discharge Details Reason For Visit: AMS, hypokalemia, hypomagnesemia Admit Date/Time: 09/01/23 16:45 Admit Provider: Cas Ramirez Attending Provider: Cas Ramirez Primary Care Provider: Dillon Scott Hospital Course Hospital Course: This 68-year-old female with recent admission to [facility] discharged on 08/29/23 w a chart diagnosis of schizoaffective disorder was brought in via EMS today after meeting with mental health today and stopped talking to them.She has had prior episodes where she has had difficulty speaking and not cooperating with exam, recently admitted for similar symptoms. On ED visit on 08/30 with similar presentation, negative workup including an MRI and improvement of her symptoms with home dose of Wellbutrin. Baseline tardive dyskinesia, eye contact but not answering questions, moves all extremities, withdrawing from pain stimuli on arrival. ED provider decided that given recent negative MRI with similar presentation with suspicion of a relation to her underlying psych disorder with a lot of the negative symptoms consistent with schizophrenia type picture such as though blo cking, increased latency of response, poverty of speech, apathy the was no need of further imaging. Hospitalist was consulted and patient was admitted to medical surgical floor as an inpatient for altered mental status, hypokalemia and hypomagnesemia. Labs in the ED revealed hypokalemia and hypomagnesemia for which supplementation was completed with resolution. . Patient denied headaches, chest pain ,difficulty breathing, abdominal pain, vomiting, diarrhea, dysuria. Patient reported intermittent change in vision, blurry vision at times, nasal congestion?feeling like she has allergies, and in termittent nausea; reported seeing things at a time but no visualization at this time. Patient reported feeling that her perception was different than what it should have been. At the time the patient could not make a decision regarding her CODE STATUS. Healthcare proxy//agent Shanice AYALA called at [phone] out of service /[phone] not working to confirm code status without success. The patient is a full code at this point.The patient was alert with an imoprove enough mental stated to relay that her health care agent had which was later confirmed. Telepsychiatric consult by Dr. Margarito Almanzar completed on 09/02/2023 with the following plan for the patient: Disposition:?Involuntary admission when medically stable, Patient does not seem to have capacity to give voluntary consent for admisison due to her psychosis Observation level ? Psychiatric 1:1 needed??No psych 1:1 needed Pharmacological:? Continue home medications while on medical floor Is patient psychotic? - Yes; Were antipsychotic medications started? - Yes Informed consent: Discussed risks and benefits of the above recommended psychiatric medications with patient, who demonstrated understanding and gave express informed consent to take the above medications as documented. Patient was compliant with oral meds regimen and her mental status improved. Blood work remain unremarkable without thrombocytopenia except for hypokalemia that was corrected with oral potassium supplement. Today, patient will be discharged to [facility] unit in [place], [place]. The patient will need medical follow-up on her pharmacological drug regimen with CBC to monitor her clozapine therapy. Discussed with Dr. Hemphill Marathon Meds and New Rx's Prescriptions: Continued psyllium husk [Metamucil] 0.4 gram capsule 0.4 g PO DAILY Qty: 90 3RF ascorbate calcium (vitamin C) 500 mg tablet 500 mg PO DAILY melatonin 3 mg capsule 3 mg PO HS PRN Fish Oil 100-160-1,000 mg capsule 1 cap PO DAILY (DME) Raised Toilet Seat See Rx Instructions .ROUTE .MEDSUPPLY Qty: 1 0RF Rx Instructions: As directed (DME) Bedside Commode See Rx Instructions .Route .MEDSUPPLY Qty: 1 0RF Patient Comments: caregiver states it is coming today Rx Instructions: Utilize commode during initial recovery s/p hip replacement loratadine 10 mg tablet 10 mg PO DAILY Qty: 90 4RF levothyroxine 88 mcg tablet 88 mcg PO DAILY Qty: 90 3RF atorvastatin 40 mg tablet 40 mg PO QPM Qty: 90 3RF cholecalciferol (vitamin D3) 25 mcg (1,000 unit) capsule 25 mcg PO DAILY clozapine 25 mg tablet 25 mg PO HS Rx Instructions: with 100 mg for total dose = 125 mg qhs Calcium 600 with Vitamin D3 600 mg-10 mcg (400 unit) tablet,chewable 1 tab PO DAILY Qty: 90 3RF famotidine 20 mg tablet 20 mg PO DAILY Qty: 90 3RF One Daily Multi-Vit w-Mineral 4.5 mg iron tablet 1 tab PO DAILY Qty: 100 3RF clopidogrel 75 mg tablet 75 mg PO DAILY Qty: 90 3RF lorazepam 0.5 mg tablet 0.5 tab PO BID PRN acetaminophen 500 mg tablet 1,000 mg PO TID Qty: 90 3RF clozapine 100 mg tablet 100 mg PO HS Rx Instructions: with 25 mg for total = 125 mg. confirmed with [facility] (pt currently due for fill, [facility] waiting for blood work 08/25/23) bupropion HCl 100 mg Tablet Sustained-Release 12 Hr 100 mg PO QAM Qty: 30 0RF Discharge Instructions Stand Alone Forms: Nursing Discharge Form Activity:: Activity as Tolerated Equipment/Supplies:: No Equipment Needed Diet:: As Tolerated Discharge Orders Discharge Orders: Discharge Order (Routine); Ordered 09/06/23 Ordered By: Yessi Pak DS: Summary Time Spent with Patient providing and/or coordinating discharge services: Greater than 30 minutes Status at Discharge Functional status at discharge: independent ambulation Overall status at discharge: patient is progressing back to baseline Mental Status: other (altered, unfocused) Speech and Movement: delayed speech and pressured speech Mood: labile mood and other (altered, unfocused) Affect: animated Quality:SDOH Health Related Social Needs: No Data to Display Exam Narrative Exam Narrative: Constitutional The patient is sitting in a chair,calm The patient is without acute distress Neuro:alert and oriented to self, person, and time ( August 2023), somewhat in place( rehab VS hospital again today) but easier to reorient . No focal deficit findings Resp: clear lung bilaterally Cardio: regular rhythm, S1, S2 GI: Abdomen is not distended, soft and non tender, bowel sounds are present : No CVA tenderness Extremities: strength 5/5 to bilateral lower and upper extremities Psych: RASS 0, congruent mood and normal affect. Psych Appearance: disheveled Mental Status: other (altered, unfocused) Speech and Movement: delayed speech and pressured speech Mood: labile mood and other (altered, unfocused) Affect: animated Attitude: cooperative Thought Process: flight of ideas Thought Content: delusions Insight: poor Judgment: limited DS: Data Vitals/I&O Vitals and I&O: Vital Signs Temperature 35.7 C L 09/06/23 11:09 Temperature Source Tympanic 09/06/23 11:09 Pulse 74 09/06/23 11:09 Pulse Rhythm Regular 09/06/23 10:21 Pulse 64 09/01/23 17:31 Respiratory Rate 18 09/06/23 11:09 Respiratory Effort Normal, Non-Labored 09/06/23 10:21 Respiratory Depth Normal 09/06/23 10:21 Respiratory Pattern Normal 09/06/23 10:21 Blood Pressure 130/87 09/06/23 11:09 Blood Pressure Mean 126 09/01/23 17:31 Blood Pressure Position Sitting 09/01/23 12:59 Pulse Oximetry 94 09/06/23 11:09 Oxygen Delivery Method Room Air 09/06/23 11:09 Oxygen Flow Rate 0 09/06/23 11:09 Pain Level 0 09/06/23 11:09 Comment RN Notified 09/05/23 05:46 Intake & Output 09/05/23 09/06/23 09/06/23 23:59 11:59 23:59 Intake Total 770 / 770 400 / 400 Output Total 350 / 350 Balance 420 / 420 400 / 400 Intake: Oral 770 / 770 400 / 400 Output: Urine 350 / 350 Other: Urine Color Yellow Yellow Urine Appearance Clear Clear Urine Odor Normal Stool Size Moderate Stool Characteristics Liquid Brown Voiding Methods Toilet Toilet Data Completed and Pending Labs on day of discharge: Labs from last 24 hours 09/06/23 06:30 WBC 5.79 RBC 4.25 Hgb 13.3 Hct 39.5 MCV 93 MCH 31.3 MCHC 33.7 RDW 13.1 Plt Count 271 MPV 10.1 Immature Gran % 0.2 Neutrophils % 52.0 Lymphocytes % 34.5 Monocytes % 8.1 Eosinophils % 4.5 Basophils % 0.7 Nucleated RBC % 0.0 Absolute Neutrophils 3.01 Absolute Lymphocytes 2.00 Absolute Monocytes 0.47 Absolute Eosinophils 0.26 Absolute Basophils 0.04 Sodium 145 Potassium 4.7 Chloride 112 H Carbon Dioxide 24.2 Anion Gap 8.8 BUN 10 Creatinine 0.8 Est GFR (CKD-EPI 2020) 79.71 Glucose 82 Calcium 9.4 Magnesium 1.8 PFSH All Active Problems (Updated 09/06/23 @ 16:09 by Yessi Pak APRN) UTI (urinary tract infection) (Acute) On deep vein thrombosis (DVT) prophylaxis (Acute) Contraindication to deep vein thrombosis (DVT) prophylaxis (Acute) Tardive dyskinesia (Acute) Dysarthria (Acute) Difficulty comprehending speech (Acute) Hypomagnesemia (Acute) Hypokalemia (Acute) PVD (peripheral vascular disease) (Chronic) Malaise (Acute) Low back pain (Acute) Elevated serum alkaline phosphatase level (Acute) Dystrophia unguium (Acute) Peripheral edema (Acute) Left knee pain (Acute) History of total left hip replacement (Acute 11/11/21) Schizoaffective disorder (Acute) Chronic diarrhea (Acute) Diarrhea (Chronic 05/15/12) h/o collagenous colitis 2008 on colonoscopy Edentulous (Acute 10/17/13) 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 MRSA (methicillin resistant staph aureus) culture positive (Acute 04/04/13) Hyponatremia (Acute 03/24/94) Abnormal weight loss (Acute 06/21/12) Hydradenitis (Acute) in rt upper thigh region Rash (Acute) Leg swelling (Acute) Bilateral knee pain (Acute) Left knee DJD (Chronic) Most recent injection: 08/30/22; 05/27/2021; 08/18/20; 03/31/2020 Hematuria (Acute) Thoracic aortic aneurysm (Acute) 4.[address] from 09/[address] from 10/2021 Lethargy (Acute) AMS (altered mental status) (Acute) Depression (Chronic) Hypokalemia (Acute) Hypomagnesemia (Acute) Schizoaffective disorder (Chronic) Discharge planning issues (Acute) DVT prophylaxis (Acute) Acute CVA (cerebrovascular accident) (Acute) CVA (cerebral vascular accident) (Chronic) Rash (Acute) Dry skin (Acute) Status post right hip replacement (Acute 08/05/21) Medical History GERD (gastroesophageal reflux disease) Urge urinary incontinence Osteoarthritis Hypothyroidism Folliculitis Hx of malignant neoplasm of vagina Hx MRSA infection Surgical History History of hip replacement Colonoscopy - MAC (02/14/17) Colonoscopy - MAC (01/12/11) Social History Smoking/Tobacco Use Status: Current-Occasional Tobacco Type: cigarettes Smoking risk assessment performed?: Yes Alcohol Intake: current Alcohol Intake frequency: holidays/special occasions only Drug use: Never Substance use type: does not use Housing: apartment Current gender identity: female Do you feel safe at home: Yes Do you feel safe in your relationship?: Yes Time Spent with Patient Time Spent with Patient: 45-69 minutes Time was spent: preparing to see the patient(eg.review tests), obtaining and/or reviewing separately otained hiistory, ordering medications,tests, procedures, referring, communicating with other health family member caretaker, indepentently interpreting results, counseling the patient and care coordination
[2023-09-06 15:49] LABS: Source Nasal/Nares
--- NOTE | 2023-09-06 15:57 | PDOC.CMDIS ---
Date of service: 09/06/23 Time of Service: 15:57 LACE Index Scoring Tool Questions: Length of Stay (in days): 4 - 6 Was the patient admitted via the E.D.?: Yes Comorbidities: Cerebrovascular Disease (CVA) and PVD E.D. Visits: 4 Answers: Total Score: 13 Risk of Readmission: High Risk Care Management Discharge Plan Reason for Hospitalization: AMS, hypokalemia, hypomagnesemia Discharge Plan: Yaima is transferred to [facility] psych facility in [facility] for inpatient psychiatric stabilization and medication management. Transportation is by EMS. If Yaima is unable to return to the community after inpatient stabilization, [facility] agrees to take her back. Patient/Family Education Needs: Review discharge instructions, limitations and plan to follow up with community providers. Discuss ask me three. Services Needed at Discharge: Psychiatric Facility ([facility]) and Transportation ([facility], EMS coordinated by CM) SDOH Health Related Social Needs: No Data to Display
[2023-09-06 16:21] LABS: COVID-19 PCR Negative (Negative)
--- NOTE | 2023-09-06 16:31 | CHAPLAIN ---
Yaima and I knew each other from her previous admissions, although she doesn't always remember who I am. Today she was talking with Fanta Casas, Conservation Specialist, about going to [facility], when I visited. Fanta said she'd travel by ambulance. During our conversation it was sometimes difficult to understand Yaima as she mumbled, and other times she spoke clearly. She said she wants to come back to her apartment after being at [facility]. Her manager case from [facility], Ashlee, came to see Yaima and talked about how her bills would be paid while she's at [facility]. Yaima had been worried about paying her rent. She also asked if the ambulance would make a pit stop if she needed to go to the bathroom. I told her I didn't know the answer to that, but she could ask the EMS people when they arrived. Yaima could be transferred as early as today.
--- NOTE | 2023-09-06 16:35 | NUR.NOTE ---
Nursing Note: report called into [facility] in [place], report called and given to CEFERINO Camp at this time.
--- NOTE | 2023-09-15 12:26 | W.PM.PROGNOT ---
Date of Service Date of service: 09/05/23 Time of Service: 12:27 Assessment and Plan Assessment and plan (1) AMS (altered mental status): Status: Acute Assessment and plan: Most likely from inconsistently taking her psychiatric medicines at home psych consultation was completed, please see notes -Recommendation for inpatient psych and referral sent ; pending offers -Involuntary admission when medically stable as per Dr. Almanzar psychiatrist - as per discussion with CM, the patient reported liking her previous stay and lillian most likely agreee -Will continue home meds BMP in AM (2) UTI (urinary tract infection): Status: Resolved Assessment and plan: UA from 08/30 with GNR with AMS w/o leukocytosis, no CVA tenderness, dysuria or fever, Klebsiella in urine intermediate resistance to nitrofurantoin ; Fosfomycyn 3gm oral given (3) Tardive dyskinesia: Status: Acute Assessment and plan: Chronic and at baseline;will keep monitoring (4) Hypomagnesemia: Status: Resolved Assessment and plan: Mg 1.9 after repletion (5) Hypokalemia: Status: Resolved Assessment and plan: Resolved BMP in AM (6) On deep vein thrombosis (DVT) prophylaxis: Status: Deleted Assessment and plan: Continue LMWH (7) Discharge planning issues: Status: Deleted Assessment and plan: CM to f/u follwed by BETO Inpatient psych recommended and referrals to [facility] and [facility] Palliative care consult Discussed with Dr. Hemphill Subjective Subjective Patient reports: no new complaints, feels better, tolerating liquids well, tolerating a regular diet, voiding w/o difficulty, flatus, afebrile and fever; denies still having pain, nausea, vomiting or shortness of breath Exam Narrative Exam Narrative: Constitutional Pleasant , iin chair w/o distress Neuro:alert and oriented to self, person, and time ( August 2023). No focal deficit findings Resp: Lungs are CTA Cardio: regular rhythm, S1, S2 GI: Abdomen is not distended, soft and non tender, bowel sounds are present : No CVA tenderness Extremities: strength 5/5 to bilateral lower and upper extremities Psych: RASS 0, congruent mood and normal affect. Psych Appearance: disheveled Mental Status: other (altered, unfocused) Speech and Movement: delayed speech and pressured speech Mood: labile mood and other (altered, unfocused) Affect: animated Attitude: cooperative Thought Process: flight of ideas Thought Content: delusions Insight: poor Judgment: limited Objective Last Vital Signs Temp 35.7 C L 09/06/23 11:09 Pulse 74 09/06/23 11:09 Resp 18 09/06/23 11:09 BP 130/87 09/06/23 11:09 Pulse Ox 94 09/06/23 11:09 Time Spent with Patient Time Spent with Patient: >50 minutes Time was spent: preparing to see the patient(eg.review tests), obtaining and/or reviewing separately otained hiistory, ordering medications,tests, procedures, referring, communicating with other health ambulatory care, indepentently interpreting results, counseling the patient and care coordination
--- NOTE | 2023-09-21 08:48 | CMPROGNOTE_ITS ---
Date of service: 09/21/23 Time of Service: 08:48 Care Management Progress Note Progress Note Text Progress Note Text: Yaima was transported to [facility] on 09/06/23 for inpatient geriatric psych stabilization. CM spoke with Nelly Gandara ( ) from [facility] on 09/19 and again today regarding Yaima's readiness to transfer back to [facility]. Unfortunately, [facility] was at capacity yesterday and is again today. CM will notify [facility] as soon as a bed becomes available, in addition Marina will call [facility] daily to check on bed availability. CM is following. SDOH(Care Management) Screening Will the Patient Participate in the Screening?: Unable to obtain
--- NOTE | 2023-09-21 08:48 | PDOC.CMPRO ---
Date of service: 09/21/23 Time of Service: 08:48 Care Management Progress Note Progress Note Text Progress Note Text: Yaima was transported to [facility] on 09/06/23 for inpatient geriatric psych stabilization. CM spoke with Nelly Gandara ( ) from [facility] on 09/19 and again today regarding Yaima's readiness to transfer back to [facility]. Unfortunately, [facility] was at capacity yesterday and is again today. CM will notify [facility] as soon as a bed becomes available, in addition Marina will call [facility] daily to check on bed availability. CM is following. SDOH(Care Management) Screening Will the Patient Participate in the Screening?: Unable to obtain
== END 2023-09-06 16:40 | DRG 885 ==
LOC: ER 16:12 → MS 18:03
PROVIDERS: Emergency Medicine; Nurse Practitioner Acute Care; Admitting Provider Family Medicine; Emergency Provider Emergency Medicine; PCP Family Medicine; Visit Provider Family Medicine
DX: F25.0 Schizoaffective disorder, bipolar type; N39.0 Urinary tract infection, site not specified; R41.82 Altered mental status, unspecified; G24.01 Drug induced subacute dyskinesia; E83.42 Hypomagnesemia; E87.6 Hypokalemia; Z79.899 Other long term (current) drug therapy; R47.1 Dysarthria and anarthria; I73.9 Peripheral vascular disease, unspecified; M54.50 Low back pain, unspecified; K21.9 Gastro-esophageal reflux disease without esophagitis; G25.61 Drug induced tics; T43.505A Adverse effect of unspecified antipsychotics and neuroleptics, initial encounter; E03.9 Hypothyroidism, unspecified; F17.210 Nicotine dependence, cigarettes, uncomplicated; N39.41 Urge incontinence; Z86.73 Personal history of transient ischemic attack (TIA), and cerebral infarction without residual deficits; I71.20 Thoracic aortic aneurysm, without rupture, unspecified; Z96.641 Presence of right artificial hip joint; B96.1 Klebsiella pneumoniae [K. pneumoniae] as the cause of diseases classified elsewhere; Z91.148 Patient's other noncompliance with medication regimen for other reason
CPT/HCPCS: 00123; 36415; 80048; 80053; 80307; 87077; 87493; 87635; 87637; 93005; 96365; 99285; J1650; 80320; 81003; 81015; 83735; 84484; 85025; 85610; 85730; 87086; 87186; 93010; 99223; 99233; 99239; J3475; J3480; J3490

== ENCOUNTER 2023-09-23 14:46 | Observation (INO) | payer MEDICARE, SELFPAY ==
--- NOTE | 2023-09-23 18:01 | W.PM.HP.N ---
Date of service: 09/23/23 Time of Service: 18:02 Assessment and Plan Assessment and plan (1) Tardive dyskinesia: Status: Acute Assessment and plan: Chronic and at baseline;will keep monitoring (2) Discharge planning issues: Status: Acute Assessment and plan: CM to f/u follwed by BETO discharge to home once medication compliance plan firmed up Discussed with Dr. Hemphill History of Present Illness History of Present Illness Chief Complaint: Returning from [facility] in [place] Narrative: This is a 68 year old female patient that presented to the [facility] ED on 09/01/23 for evaluation of worsening behaviors, difficulty in performing daily activities, and nonsensical speech which are likely related to her underlying schizoaffective disorder and bipolar type and the fact that she had stopped taking her medications correctly exacerbated her symptoms. Additionally, the recent loss of her sister, who was her healthcare proxy, might have contributed to increased stress and instability in her mental health. The patient was transferred to [facility] on 09/06/2023 and admitted to the Specialized Behavioral Health Unit, where she received comprehensive care including psychopharmacology, psychotherapy (both group and individual), recreational therapy, and other supportive programming. Medications such as Wellbutrin and Clozapine were restarted and adjusted, while melatonin was initiated to address sleep disturbances. Treatment also included addressing dehydration and treating a urinary tract infection, which could have been contributing factors to her symptoms. It's encouraging that the patient showed improvement with this multidisciplinary approach and was transferred back to the medical floor at [facility] today, presumably for continued monitoring and care. It's essential to ensure she continues to adhere to her medication regimen and receives ongoing support, especially given her living situation and recent loss. Review of Systems All systems reviewed & are unremarkable except as noted in HPI and below PFSH All Active Problems (Updated 09/07/23 @ 00:09 by BUNNY HOBBS) Discharge planning issues (Acute) Contraindication to deep vein thrombosis (DVT) prophylaxis (Acute) Tardive dyskinesia (Acute) Dysarthria (Acute) Difficulty comprehending speech (Acute) PVD (peripheral vascular disease) (Chronic) Malaise (Acute) Low back pain (Acute) Elevated serum alkaline phosphatase level (Acute) Dystrophia unguium (Acute) Peripheral edema (Acute) Left knee pain (Acute) History of total left hip replacement (Acute 11/11/21) Schizoaffective disorder (Acute) Chronic diarrhea (Acute) Diarrhea (Chronic 05/15/12) h/o collagenous colitis 2008 on colonoscopy Edentulous (Acute 10/17/13) 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 MRSA (methicillin resistant staph aureus) culture positive (Acute 04/04/13) Hyponatremia (Acute 03/24/94) Abnormal weight loss (Acute 06/21/12) Hydradenitis (Acute) in rt upper thigh region Rash (Acute) Leg swelling (Acute) Bilateral knee pain (Acute) Left knee DJD (Chronic) Most recent injection: 08/30/22; 05/27/2021; 08/18/20; 03/31/2020 Hematuria (Acute) Thoracic aortic aneurysm (Acute) 4.[address] from 09/[address] from 10/2021 Lethargy (Acute) AMS (altered mental status) (Acute) Depression (Chronic) Hypokalemia (Acute) Hypomagnesemia (Acute) Schizoaffective disorder (Chronic) DVT prophylaxis (Acute) Acute CVA (cerebrovascular accident) (Acute) CVA (cerebral vascular accident) (Chronic) Rash (Acute) Dry skin (Acute) Status post right hip replacement (Acute 08/05/21) Medical History GERD (gastroesophageal reflux disease) Urge urinary incontinence Osteoarthritis Hypothyroidism Folliculitis Hx of malignant neoplasm of vagina Hx MRSA infection Surgical History History of hip replacement Colonoscopy - MAC (02/14/17) Colonoscopy - MAC (01/12/11) Social History Smoking/Tobacco Use Status: Current-Occasional Tobacco Type: cigarettes Smoking risk assessment performed?: Yes Alcohol Intake: current Alcohol Intake frequency: holidays/special occasions only Drug use: Never Substance use type: does not use Housing: apartment Current gender identity: female Do you feel safe at home: Yes Do you feel safe in your relationship?: Yes Meds Allergies and Home Medications Allergies Allergy/AdvReac Type Severity Reaction Status Date / Time chlorpheniramine Allergy Unknown Verified 09/01/23 12:57 erythromycin base Allergy Unknown Verified 09/01/23 12:57 Penicillins Allergy Rash Verified 09/01/23 12:57 Home Medications Medication Instructions Recorded Confirmed Type bupropion HCl 100 mg tablet,12 hr 100 mg PO QAM #30 tabs 04/07/21 09/23/23 Rx sustained-release ascorbate calcium (vitamin C) 500 500 mg PO DAILY 07/15/21 09/23/23 History mg tablet melatonin 3 mg capsule 3 mg PO HS PRN 07/15/21 09/23/23 History Bedside Commode #1 ea 08/03/21 09/01/23 Rx Raised Toilet Seat #1 ea 08/03/21 09/01/23 Rx acetaminophen 500 mg tablet 1,000 mg (2 x 500 mg) PO TID #90 11/11/21 09/23/23 Rx tabs levothyroxine 88 mcg tablet 88 mcg PO DAILY #90 tabs 11/29/22 09/01/23 Rx loratadine 10 mg tablet 10 mg PO DAILY #90 tabs 11/29/22 09/23/23 Rx atorvastatin 40 mg tablet 40 mg PO QPM #90 tabs 02/21/23 09/23/23 Rx clozapine 25 mg tablet 25 mg PO HS 03/03/23 09/23/23 History famotidine 20 mg tablet 20 mg PO DAILY #90 tabs 04/20/23 09/23/23 Rx clopidogrel 75 mg tablet 75 mg PO DAILY #90 tabs 08/08/23 09/23/23 Rx clozapine 200 mg tablet 200 mg PO ONCE 09/23/23 09/23/23 History clozapine 50 mg tablet 50 mg PO ONCE 09/23/23 09/23/23 History Exam Narrative Exam Narrative: Constitutional Pleasant , in chair w/o distress Neuro:alert and oriented to self, person, and time. No focal deficit findings Resp: Lungs are CTA Cardio: regular rhythm, S1, S2 GI: Abdomen is not distended, soft and non tender, bowel sounds are present : No CVA tenderness Extremities: strength 5/5 to bilateral lower and upper extremities Psych: congruent mood and normal affect. Psych Appearance: disheveled Mental Status: other (altered, unfocused) Speech and Movement: delayed speech and pressured speech Mood: labile mood and other (altered, unfocused) Affect: animated Attitude: cooperative Thought Process: flight of ideas Thought Content: delusions Insight: poor Judgment: limited Time Spent Time spent with Patient: 55-74 minutes Time was spent: preparing to see the patient(eg.review tests), obtaining and/or reviewing separately otained hiistory, ordering medications,tests, procedures, referring, communicating with other health healthcare analyst, indepentently interpreting results, counseling the patient and care coordination
[2023-09-23 19:40] VITALS: BP 115/89; PULSE 86; RESP 20; TEMP 36.7; O2SAT 96
[2023-09-23] MEDS: Acetaminophen 500 MG TAB 1000 MG PO (20:59)
[2023-09-23] MEDS: Atorvastatin 40 MG TAB PO (20:59)
[2023-09-23] MEDS: Melatonin 3 MG TAB PO (20:59)
[2023-09-23 21:47] LABS: Abs Immature Grans 0.03 10^3/uL (0.0-0.06); Absolute Basophil Count 0.04 10^3/uL (0.0-0.2); Absolute Eosinophil Count 0.32 10^3/uL (0.0-0.7); Absolute Monocyte Count 0.88 10^3/uL (0.1-0.8); Absolute Neutrophil Count 7.49 10^3/uL (1.2-6.7); Basophils % 0.4 %; HCT 34.6 % (36.0-46.0); HGB 11.3 g/dL (11.2-15.7); Immature Grans % 0.3 %; Lymphocytes % 17.8 %; MCH 30.6 pg (27.0-33.0); MCHC 32.7 % (32.0-36.0); MCV 94 fL (80-95); MPV 9.9 fL (8.0-11.0); Monocytes % 8.3 %; Neutrophils % 70.2 %; Platelet Count 238 10^3/uL (130-400); RBC 3.69 10^6/uL (3.93-5.22); RDW 13.7 % (11.7-14.6); RDW-SD 46.9 fL; WBC 10.66 10^3/uL (4.4-10.8)
[2023-09-23 22:21] LABS: ALT 25 U/L (14-59); AST 15 U/L (15-37); Alkaline Phosphatase 126 U/L (46-116); Anion Gap 6.3 mmol/L (3-11); BUN 24 mg/dL (7-18); Bilirubin, Total 0.3 mg/dL (0.2-1.0); CO2 28.7 mmol/L (21.0-32.0); CREATININE 0.7 mg/dL (0.55-1.02); Calcium 9.3 mg/dL (8.5-10.1); Chloride 106 mmol/L (98-107); Estimated GFR 93.56 (mL/min/1.73m2); Glucose 85 mg/dL (74-106); Magnesium 1.8 mg/dL (1.8-2.4); Potassium 3.4 mmol/L (3.5-5.1); Sodium 141 mmol/L (136-145); Total Protein 5.9 g/dL (6.4-8.2)
[2023-09-24 02:18] VITALS: BP 115/91; PULSE 85; RESP 18; TEMP 36.3; O2SAT 97
[2023-09-24] MEDS: Levothyroxine 88 MCG TAB PO (06:30)
[2023-09-24 07:02] LABS: Abs Immature Grans 0.03 10^3/uL (0.0-0.06); Absolute Basophil Count 0.04 10^3/uL (0.0-0.2); Absolute Eosinophil Count 0.42 10^3/uL (0.0-0.7); Absolute Neutrophil Count 6.92 10^3/uL (1.2-6.7); Basophils % 0.4 %; Eosinophils % 4.2 %; HGB 11.3 g/dL (11.2-15.7); Immature Grans % 0.3 %; Lymphocytes % 18.8 %; MCH 30.8 pg (27.0-33.0); MCHC 33.2 % (32.0-36.0); MCV 93 fL (80-95); MPV 10.7 fL (8.0-11.0); Monocytes % 7.9 %; Neutrophils % 68.4 %; Platelet Count 219 10^3/uL (130-400); RBC 3.67 10^6/uL (3.93-5.22); RDW 13.8 % (11.7-14.6); RDW-SD 46.5 fL; WBC 10.11 10^3/uL (4.4-10.8)
[2023-09-24 07:22] LABS: Anion Gap 10.1 mmol/L (3-11); BUN 19 mg/dL (7-18); CO2 23.9 mmol/L (21.0-32.0); CREATININE 0.7 mg/dL (0.55-1.02); Calcium 9.5 mg/dL (8.5-10.1); Chloride 109 mmol/L (98-107); Estimated GFR 93.56 (mL/min/1.73m2); Glucose 77 mg/dL (74-106); Magnesium 1.9 mg/dL (1.8-2.4); Potassium 3.6 mmol/L (3.5-5.1); Sodium 143 mmol/L (136-145)
[2023-09-24] MEDS: buPROPion-CR 100 MG TABCR PO (10:37)
[2023-09-24] MEDS: Clopidogrel 75 MG TAB PO (10:37)
[2023-09-24] MEDS: Acetaminophen 500 MG TAB 1000 MG PO (10:37)
[2023-09-24] MEDS: Famotidine 20 MG TAB PO (10:37)
[2023-09-24] MEDS: Loratidine 10 MG TAB PO (10:37)
--- NOTE | 2023-09-24 11:57 | DSE_ITS ---
Date of service: 09/24/23 Time of Service: 11:57 DS: Diagnosis Discharge Diagnosis (1) Tardive dyskinesia: Status: Acute (2) Discharge planning issues: Status: Acute Discharge Plan Disposition Patient Disposition: Home W/Home Health Services Condition: Fair Discharge Details Reason For Visit: return from psychiatric hospital admission Admit Date/Time: 09/23/23 12:47 Admit Provider: Italo Hemphill Attending Provider: Italo Hemphill Primary Care Provider: Dillon Scott Hospital Course Hospital Course: This is a 68 year old female patient who presented to the [facility] ED on 09/01/23 for evaluation of worsening behaviors, difficulty in performing daily activ ities, and nonsensical speech which are likely related to her underlying schizoaffective disorder and bipolar type and the fact that she had stopped taking her medications correctly exacerbated her symptoms. Additionally, the recent loss of her sister, who was her healthcare proxy, might have contributed to increased stress and instability in her mental health. The patient was transferred to [facility] on 09/06/2023 and admitted to the Specialized Behavioral Health Unit, where she received comprehensive care including psychopharmacology, psychotherapy (both group and individual), r ecreational therapy, and other supportive programming. Medications such as Wellbutrin and Clozapine were restarted and adjusted, while melatonin was initiated to address sleep disturbances. Treatment also included addressing dehydration and treating a urinary tract infection, which could have been contributing factors to her symptoms. It's encouraging that the patient showed improvement with this multidisciplinary approach and was transferred back to the medical floor at [facility], presumably for continued monitoring and care. Patient labs are unremarkable. Patient has no complaints. Patient's vital signs are stable. It's essential to ensure she continues to adhere to her medication regimen and receives ongoing support, especially given her living situation and recent loss; home health nursing and social work has been ordered. Patient should continue medications as prescribed by [facility]. She should have close monitoring by PCP. Home Meds and New Rx's Prescriptions: Continued ascorbate calcium (vitamin C) 500 mg tablet 500 mg PO DAILY melatonin 3 mg capsule 3 mg PO HS PRN (DME) Raised Toilet Seat See Rx Instructions .ROUTE .MEDSUPPLY Qty: 1 0RF Rx Instructions: As directed (DME) Bedside Commode See Rx Instructions .Route .MEDSUPPLY Qty: 1 0RF Patient Comments: caregiver states it is coming today Rx Instructions: Utilize commode during initial recovery s/p hip replacement loratadine 10 mg tablet 10 mg PO DAILY Qty: 90 4RF levothyroxine 88 mcg tablet 88 mcg PO DAILY Qty: 90 3RF atorvastatin 40 mg tablet 40 mg PO QPM Qty: 90 3RF clozapine 25 mg tablet 25 mg PO HS Hold Instructions: increased Patient Comments: 50mg tablet Rx Instructions: with 100 mg for total dose = 125 mg qhs famotidine 20 mg tablet 20 mg PO DAILY Qty: 90 3RF clopidogrel 75 mg tablet 75 mg PO DAILY Qty: 90 3RF acetaminophen 500 mg tablet 1,000 mg PO TID Qty: 90 3RF bupropion HCl 100 mg Tablet Sustained-Release 12 Hr 100 mg PO QAM Qty: 30 0RF clozapine 50 mg tablet 50 mg PO ONCE Patient Comments: 1 tab in AM clozapine 200 mg tablet 200 mg PO ONCE Patient Comments: at HS Discharge Instructions Instructions: Medication Safety for Older Adults (GEN) Additional Instructions: Home health nursing will visit. Stand Alone Forms: Nursing Discharge Form Referrals: Dillon Scott MD [Primary Care Provider] - (Office will call you Tuesday to make a follow up appointment. Please call if you do not hear from them to make a follow up appointment for 1-2 weeks. ) Activity:: Activity as Tolerated Equipment/Supplies:: No Equipment Needed Diet:: As Tolerated Discharge Orders Discharge Orders: Discharge Order (Routine); Ordered 09/24/23 Ordered By: Yesenia Brantley DS: Summary Time Spent with Patient providing and/or coordinating discharge services: Less than 30 minutes Status at Discharge Functional status at discharge: independent ambulation Overall status at discharge: patient is back to baseline Mental Status: other (altered, unfocused) Speech and Movement: delayed speech and pressured speech Mood: labile mood and other (altered, unfocused) Affect: animated Quality:SDOH Health Related Social Needs: No Data to Display Exam Narrative Exam Narrative: Constitutional Pleasant , in chair w/o distress Neuro:alert and oriented to self, person, and time. No focal deficit findings Resp: Lungs are CTA Cardio: regular rhythm, S1, S2 GI: Abdomen is not distended, soft and non tender, bowel sounds are present : No CVA tenderness Extremities: strength 5/5 to bilateral lower and upper extremities Psych: congruent mood and normal affect. Psych Appearance: disheveled Mental Status: other (altered, unfocused) Speech and Movement: delayed speech and pressured speech Mood: labile mood and other (altered, unfocused) Affect: animated Attitude: cooperative Thought Process: flight of ideas Thought Content: delusions Insight: poor Judgment: limited DS: Data Vitals/I&O Vitals and I&O: Vital Signs Temperature 36.3 C L 09/24/23 02:18 Temperature Source Tympanic 09/24/23 02:18 Pulse 85 09/24/23 02:18 Pulse Rhythm Regular 09/24/23 02:34 Respiratory Rate 18 09/24/23 02:18 Respiratory Effort Normal 09/24/23 02:34 Respiratory Depth Normal 09/24/23 02:34 Respiratory Pattern Normal 09/24/23 02:34 Blood Pressure 115/91 H 09/24/23 02:18 Pulse Oximetry 97 09/24/23 02:18 Oxygen Delivery Method Room Air 09/24/23 02:18 Oxygen Flow Rate 0 09/24/23 02:18 Pain Level 0 09/24/23 02:18 Intake & Output 09/23/23 09/23/23 09/24/23 11:59 23:59 11:59 Intake Total 650 / 650 Output Total 1000 / 1000 Balance 650 / 650 -1000 / -1000 Intake: Oral 650 / 650 Output: Urine 1000 / 1000 Other: Urine Color Yellow Urine Appearance Clear Clear Comment toilet insert Stool Size Small Stool Characteristics Liquid Data Completed and Pending Labs on day of discharge: Labs from last 24 hours 09/24/23 09/23/23 05:48 21:40 WBC 10.11 10.66 RBC 3.67 L 3.69 L Hgb 11.3 11.3 Hct 34.0 L 34.6 L MCV 93 94 MCH 30.8 30.6 MCHC 33.2 32.7 RDW 13.8 13.7 Plt Count 219 238 MPV 10.7 9.9 Immature Gran % 0.3 0.3 Neutrophils % 68.4 70.2 Lymphocytes % 18.8 17.8 Monocytes % 7.9 8.3 Eosinophils % 4.2 3.0 Basophils % 0.4 0.4 Nucleated RBC % 0.0 0.0 Absolute Neutrophils 6.92 H 7.49 H Absolute Lymphocytes 1.90 1.90 Absolute Monocytes 0.80 0.88 H Absolute Eosinophils 0.42 0.32 Absolute Basophils 0.04 0.04 Sodium 143 141 Potassium 3.6 3.4 L Chloride 109 H 106 Carbon Dioxide 23.9 28.7 Anion Gap 10.1 6.3 BUN 19 H 24 H Creatinine 0.7 0.7 Est GFR (CKD-EPI 2020) 93.56 93.56 Glucose 77 85 Calcium 9.5 9.3 Magnesium 1.9 1.8 Total Bilirubin 0.3 AST 15 ALT 25 Alkaline Phosphatase 126 H Total Protein 5.9 L Albumin 3.0 L PFSH All Active Problems (Updated 09/07/23 @ 00:09 by BUNNY HOBBS) Discharge planning issues (Acute) Contraindication to deep vein thrombosis (DVT) prophylaxis (Acute) Tardive dyskinesia (Acute) Dysarthria (Acute) Difficulty comprehending speech (Acute) PVD (peripheral vascular disease) (Chronic) Malaise (Acute) Low back pain (Acute) Elevated serum alkaline phosphatase level (Acute) Dystrophia unguium (Acute) Peripheral edema (Acute) Left knee pain (Acute) History of total left hip replacement (Acute 11/11/21) Schizoaffective disorder (Acute) Chronic diarrhea (Acute) Diarrhea (Chronic 05/15/12) h/o collagenous colitis 2008 on colonoscopy Edentulous (Acute 10/17/13) 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 MRSA (methicillin resistant staph aureus) culture positive (Acute 04/04/13) Hyponatremia (Acute 03/24/94) Abnormal weight loss (Acute 06/21/12) Hydradenitis (Acute) in rt upper thigh region Rash (Acute) Leg swelling (Acute) Bilateral knee pain (Acute) Left knee DJD (Chronic) Most recent injection: 08/30/22; 05/27/2021; 08/18/20; 03/31/2020 Hematuria (Acute) Thoracic aortic aneurysm (Acute) 4.[address] from 09/[address] from 10/2021 Lethargy (Acute) AMS (altered mental status) (Acute) Depression (Chronic) Hypokalemia (Acute) Hypomagnesemia (Acute) Schizoaffective disorder (Chronic) DVT prophylaxis (Acute) Acute CVA (cerebrovascular accident) (Acute) CVA (cerebral vascular accident) (Chronic) Rash (Acute) Dry skin (Acute) Status post right hip replacement (Acute 08/05/21) Medical History GERD (gastroesophageal reflux disease) Urge urinary incontinence Osteoarthritis Hypothyroidism Folliculitis Hx of malignant neoplasm of vagina Hx MRSA infection Surgical History History of hip replacement Colonoscopy - MAC (02/14/17) Colonoscopy - MAC (01/12/11) Social History Smoking/Tobacco Use Status: Current-Occasional Tobacco Type: cigarettes Smoking risk assessment performed?: Yes Alcohol Intake: current Alcohol Intake frequency: holidays/special occasions only Drug use: Never Substance use type: does not use Housing: apartment Current gender identity: female Do you feel safe at home: Yes Do you feel safe in your relationship?: Yes Time Spent with Patient Time Spent with Patient: <45 minutes Time was spent: preparing to see the patient(eg.review tests), ordering medications,tests, procedures, referring, communicating with other health transitional care nurse, indepentently interpreting results, counseling the patient and care coordination
[2023-09-24 12:03] VITALS: BP 125/93; PULSE 90; RESP 15; TEMP 35.1; O2SAT 98
--- NOTE | 2023-09-24 16:21 | PDOC.CMDIS ---
Date of service: 09/24/23 Time of Service: 16:21 LACE Index Scoring Tool Questions: Length of Stay (in days): 1 Was the patient admitted via the E.D.?: No Comorbidities: Cerebrovascular Disease E.D. Visits: 4 Answers: Total Score: 6 Risk of Readmission: Low Risk Care Management Discharge Plan Reason for Hospitalization: psychiatric stabilization Discharge Plan: Yaima returned home today with new orders for HH RN for medication management. She was driven home via [facility] private vehicle, coordinated by RITESH. CM left a message for her case making machine operator at [facility], informing of her discharge and resumption of care. CM emailed her [facility] case making machine operator, Keli, to provide hand off information as well. CM spoke to Yaima's sister in law, Lori Tipton ([phone]) as well, to inform of her discharge. CM requested that Yaima is sent home with some fresh food. She will follow up with her PCP and her discharge plan of care. Patient/Family Education Needs: Review discharge instructions and limitations, discussion of self care needs including ask me three. Services Needed at Discharge: Home Health Care Services (new HH RN) and Transportation ([facility] private vehicle) [facility] Health Related Social Needs: No Data to Display
--- NOTE | 2023-09-24 16:46 | PDOC.HHF2F ---
Home Health Referral Home Health Orders Clinical synopsis of why skilled professionals are needed: This is a 68 year old female patient who presented to the [facility] ED on 09/01/23 for evaluation of worsening behaviors, difficulty in performing daily activities, and nonsensical speech which are likely related to her underlying schizoaffective disorder and bipolar type and the fact that she had stopped taking her medications correctly exacerbated her symptoms. Additionally, the recent loss of her sister, who was her healthcare proxy, might have contributed to increased stress and instability in her mental health. The patient was transferred to [facility] on 09/06/2023 and admitted to the [facility], where she received comprehensive care including psychopharmacology, psychotherapy (both group and individual), recreational therapy, and other supportive programming. Medications such as Wellbutrin and Clozapine were restarted and adjusted, while melatonin was initiated to address sleep disturbances. Treatment also included addressing dehydration and treating a urinary tract infection, which could have been contributing factors to her symptoms. It's encouraging that the patient showed improvement with this multidisciplinary approach and was transferred back to the medical floor at [facility], presumably for continued monitoring and care. Patient labs are unremarkable. Patient has no complaints. Patient's vital signs are stable. It's essential to ensure she continues to adhere to her medication regimen and receives ongoing support, especially given her living situation and recent loss; home health nursing and social work has been ordered. Patient should continue medications as prescribed by [facility]. She should have close monitoring by PCP. Medical diagnosis necessitation home health referral: Schizoaffective disorder, tardive dyskinesia, remote CVA Registered Nurse: Check all that apply Instruct on new or changed medication(s)/assess compliance: Ordered [employer] Fork Operator: Assist with community resources: Ordered Assist with detention care planning: Ordered Home Bound Status Patient has a condition such that leaving home is medically contraindicated (Describe): Schizoaffective disorder Describe why leaving home would require a considerable and taxing effort: Requires frequent rest periods and Confusion Encounter Date and Reason: I certify that a FTF encounter for this patient was performed on September 24, 2023 and that such encounter was related to the primary reason the patient requires home health services. The encounter was conducted in the following manner: By me as the certifying physician, [employer]SEM[employer] MACHINE SET UP MECHANIC, PA or By an inpatient physician, [employer]SEM[employer] MACHINE SET UP MECHANIC or PA during an inpatient stay who communicated findings to me, Certification And Authentication I certify that I composed the above information based on my clinical judgment relating to this patient's medical condition and, if applicable, clinical findings communicated to me by the NPP or inpatient physician who performed the FTF encounter. Name of Provider that will be monitoring home health services: Dillon Scott
== END 2023-09-24 17:19 | disposition home health service (06) ==
PROVIDERS: Nurse Practitioner Family; Admitting Provider Internal Medicine; PCP Family Medicine; Visit Provider Internal Medicine
DX: F25.0 Schizoaffective disorder, bipolar type (principal); G24.01 Drug induced subacute dyskinesia; Z91.148 Patient's other noncompliance with medication regimen for other reason; R47.1 Dysarthria and anarthria; I73.9 Peripheral vascular disease, unspecified; M54.50 Low back pain, unspecified; R60.0 Localized edema; Z96.642 Presence of left artificial hip joint; K52.9 Noninfective gastroenteritis and colitis, unspecified; K21.9 Gastro-esophageal reflux disease without esophagitis; G25.61 Drug induced tics; T43.595A Adverse effect of other antipsychotics and neuroleptics, initial encounter; Z22.322 Carrier or suspected carrier of Methicillin resistant Staphylococcus aureus; M17.12 Unilateral primary osteoarthritis, left knee; Z86.73 Personal history of transient ischemic attack (TIA), and cerebral infarction without residual deficits; E03.9 Hypothyroidism, unspecified; F17.210 Nicotine dependence, cigarettes, uncomplicated
CPT/HCPCS: 00123; 36415; 80048; 80053; 83735; 85025; 99222; 99238; G0378

== ENCOUNTER 2023-10-20 02:00 | Outpatient (CLI) | payer MEDICARE, SELFPAY ==
[2023-10-20 15:08] LABS: Abs Immature Grans 0.02 10^3/uL (0.0-0.06); Absolute Basophil Count 0.06 10^3/uL (0.0-0.2); Absolute Lymphocyte Count 1.99 10^3/uL (1.2-3.4); Absolute Monocyte Count 0.73 10^3/uL (0.1-0.8); Absolute Neutrophil Count 5.51 10^3/uL (1.2-6.7); Basophils % 0.7 %; Eosinophils % 3.5 %; HCT 36.7 % (36.0-46.0); HGB 11.9 g/dL (11.2-15.7); Immature Grans % 0.2 %; Lymphocytes % 23.1 %; MCH 31.5 pg (27.0-33.0); MCHC 32.4 % (32.0-36.0); MCV 97 fL (80-95); MPV 9.5 fL (8.0-11.0); Monocytes % 8.5 %; Platelet Count 247 10^3/uL (130-400); RBC 3.78 10^6/uL (3.93-5.22); RDW 15.1 % (11.7-14.6); RDW-SD 53.9 fL; WBC 8.61 10^3/uL (4.4-10.8)
== END 2023-10-20 02:01 | disposition home or self-care (01) ==
PROVIDERS: PCP Family Medicine; Visit Provider Nurse Practitioner Psychiatric/Mental Health
DX: F25.0 Schizoaffective disorder, bipolar type (principal); Z79.899 Other long term (current) drug therapy
CPT/HCPCS: 36415; 85025

== ENCOUNTER 2023-11-07 15:37 | Emergency (ER) | payer MEDICARE, SELFPAY ==
[2023-11-07 15:40] VITALS: BP 168/90; PULSE 104; RESP 18; TEMP 36.3; O2SAT 96
--- NOTE | 2023-11-07 16:00 | RT.EKG_ITS ---
APPROVED REPORT Exam: Resting ECG Reason for Exam: [facility] Patient Location: E HR:91 bpm ECG Measurements Heart Rate 91 AXIS SD 164 P 64 QRSd 85 QRS 30 QT 362 T 33 QTc 444 Conclusion Sinus rhythm...normal P axis, V-rate 60- 99 Probable left atrial enlargement...P >50mS, <-0.10mV V1 sinus rhtyhm, normal axis, normla intervals, non ischemic
--- NOTE | 2023-11-07 16:09 | W.ED.GENAD ---
Discharge Plan Disposition Patient Disposition: Home Condition: Improving Discharge Details Chief Complaint: GenMedical Clinical Impression: Heat exposure, Dehydration Primary Care Provider: Dillon Scott ED Provider: Bacilio Taylor Home Meds and New Rx's Prescriptions: No Action ascorbate calcium (vitamin C) 500 mg tablet 500 mg PO DAILY melatonin 3 mg capsule 3 mg PO HS PRN clozapine 50 mg tablet 50 mg PO DAILY Patient Comments: clozapine 200 mg tablet 200 mg PO QHS Patient Comments: at HS; total 250 mg/day furosemide 20 mg tablet 20 mg PO DAILY PRN (Reason: edema) Qty: 30 0RF (DME) Raised Toilet Seat See Rx Instructions .ROUTE .MEDSUPPLY Qty: 1 0RF Rx Instructions: As directed (DME) Bedside Commode See Rx Instructions .Route .MEDSUPPLY Qty: 1 0RF Patient Comments: caregiver states it is coming today Rx Instructions: Utilize commode during initial recovery s/p hip replacement loratadine 10 mg tablet 10 mg PO DAILY Qty: 90 4RF levothyroxine 88 mcg tablet 88 mcg PO DAILY Qty: 90 3RF atorvastatin 40 mg tablet 40 mg PO QPM Qty: 90 3RF famotidine 20 mg tablet 20 mg PO DAILY Qty: 90 3RF clopidogrel 75 mg tablet 75 mg PO DAILY Qty: 90 3RF doxycycline hyclate 100 mg capsule 100 mg PO BID Qty: 14 0RF acetaminophen 500 mg tablet 1,000 mg PO TID Qty: 90 3RF bupropion HCl 100 mg Tablet Sustained-Release 12 Hr 100 mg PO QAM Qty: 30 0RF Discharge Instructions Instructions: Dehydration, Adult ED Additional Instructions: Please help with your primary care physician. Please return to the emergency department for any worsening symptoms HPI General Date/Time Provider Initiated Documentation: 11/07/23 15:56. HPI Narrative: 68-year-old female history of schizoaffective disorder, tardive dyskinesia, prior CVA, aphasia, presents brought in by professor of visual arts for evaluation of likely heat exposure patient has been living in an apartment without air conditioning in her refrigerator has gone out patient has not been eating and drinking over the last couple of days noted to be more confused than normal. No new psychiatric complaints or symptoms. Related Data Home Medications ?Medication ?Instructions ?Recorded ?Confirmed bupropion HCl 100 mg tablet,12 hr 100 mg PO QAM #30 tabs 04/07/21 09/29/23 sustained-release ascorbate calcium (vitamin C) 500 500 mg PO DAILY 07/15/21 09/29/23 mg tablet melatonin 3 mg capsule 3 mg PO HS PRN 07/15/21 09/29/23 Bedside Commode #1 ea 08/03/21 09/29/23 Raised Toilet Seat #1 ea 08/03/21 09/29/23 acetaminophen 500 mg tablet 1,000 mg (2 x 500 mg) PO TID #90 11/11/21 09/29/23 tabs levothyroxine 88 mcg tablet 88 mcg PO DAILY #90 tabs 11/29/22 09/29/23 loratadine 10 mg tablet 10 mg PO DAILY #90 tabs 11/29/22 09/29/23 atorvastatin 40 mg tablet 40 mg PO QPM #90 tabs 02/21/23 09/29/23 famotidine 20 mg tablet 20 mg PO DAILY #90 tabs 04/20/23 09/29/23 clopidogrel 75 mg tablet 75 mg PO DAILY #90 tabs 08/08/23 09/29/23 clozapine 200 mg tablet 200 mg PO QHS 09/29/23 09/29/23 clozapine 50 mg tablet 50 mg PO DAILY 09/29/23 09/29/23 furosemide 20 mg tablet 20 mg PO DAILY PRN edema #30 tabs 09/29/23 09/29/23 doxycycline hyclate 100 mg capsule 100 mg PO BID #14 caps 10/12/23 Previous Rx's ?Medication ?Instructions ?Recorded bupropion HCl 100 mg tablet,12 hr 100 mg PO QAM #30 tabs 04/07/21 sustained-release Bedside Commode #1 ea 08/03/21 Raised Toilet Seat #1 ea 08/03/21 acetaminophen 500 mg tablet 1,000 mg (2 x 500 mg) PO TID #90 11/11/21 tabs levothyroxine 88 mcg tablet 88 mcg PO DAILY #90 tabs 11/29/22 loratadine 10 mg tablet 10 mg PO DAILY #90 tabs 11/29/22 atorvastatin 40 mg tablet 40 mg PO QPM #90 tabs 02/21/23 famotidine 20 mg tablet 20 mg PO DAILY #90 tabs 04/20/23 clopidogrel 75 mg tablet 75 mg PO DAILY #90 tabs 08/08/23 furosemide 20 mg tablet 20 mg PO DAILY PRN edema #30 tabs 09/29/23 doxycycline hyclate 100 mg capsule 100 mg PO BID #14 caps 10/12/23 Allergies Allergy/AdvReac Type Severity Reaction Status Date / Time chlorpheniramine Allergy Unknown Verified 11/07/23 16:11 erythromycin base Allergy Skin Rash Verified 11/07/23 16:11 Penicillins Allergy Rash, Verified 11/07/23 16:11 troubles breathing per pt General Stated Complaint: GenMedical JESSICA: 2 Course Vital Signs Vital signs: Vital Signs Temperature 36.3 C L 11/07/23 15:40 Pulse 104 H 11/07/23 15:40 Respiratory Rate 18 11/07/23 15:40 Blood Pressure 168/90 H 11/07/23 15:40 Pulse Oximetry 96 11/07/23 15:40 Temperature 36.3 C L 11/07/23 15:40 Temperature Source Skin 11/07/23 15:40 Pulse 104 H 11/07/23 15:40 Respiratory Rate 18 11/07/23 15:40 Blood Pressure 168/90 H 11/07/23 15:40 Blood Pressure Position Sitting 11/07/23 15:40 Pulse Oximetry 96 11/07/23 15:40 Oxygen Delivery Method Room Air 11/07/23 15:40 Oxygen Flow Rate 0 11/07/23 15:40 Pain Level 0 11/07/23 15:40 Medical Decision Making 68-year-old female history of schizoaffective disorder, tardive dyskinesia, prior CVA, aphasia, presents brought in by professor of visual arts for evaluation of likely heat exposure patient has been living in an apartment without air conditioning in her refrigerator has gone out patient has not been eating and drinking over the last couple of days noted to be more confused than normal. No new psychiatric complaints or symptoms. Patient is alert interactive following commands, cranial nerves II through XII intact, 5-5 strength upper lower extremities bilaterally ambulatory without ataxia, no to be hypertensive to 170/90, mildly tachycardic to 104, tongue does appear dry skin is warm to the touch patient is sweating high clinical special for heat exposure versus heat exhaustion versus early heatstroke low suspicion for acute CVA or acute decompensation of prior psychiatric illness, most also consider electrolyte derangement versus dehydration versus infectious etiology such as pneumonia or UTI however less likely, lower suspicion for ACS PE or aortic pathology. Will obtain screening blood sugar glucose, CT head EKG chest x-ray basic labs fluids cool environment close reassessment of mental status. Per professor of visual arts patient's home is unsafe given her living condition, will need to consider admission or consideration of arrangement for safe living facility/rehab in the community 18: 47 patient resting comfortably no acute distress. Labs imaging unremarkable. Feeling much better after rest and fluid. Likely component of heat exposure and dehydration. Patient tolerating p.o. Offered admission for observation tonight however patient feels comfortable going home has access to water and food and endorses that her living quarters cool down significantly in the evening. Given strict return precautions for any worsening symptoms. Will have referral for care management evaluation sent Quality:[facility] Health Related Social Needs: No Data to Display [facility] All Active Problems (Updated 09/25/23 @ 00:05 by BUNNY HOBBS) Dehydration (Acute) Heat exposure (Acute) Edema (Acute) Cough (Acute) Contraindication to deep vein thrombosis (DVT) prophylaxis (Acute) Tardive dyskinesia (Acute) Dysarthria (Acute) Difficulty comprehending speech (Acute) PVD (peripheral vascular disease) (Chronic) Malaise (Acute) Low back pain (Acute) Elevated serum alkaline phosphatase level (Acute) Dystrophia unguium (Acute) Peripheral edema (Acute) Left knee pain (Acute) History of total left hip replacement (Acute 11/11/21) Schizoaffective disorder (Acute) Chronic diarrhea (Acute) Diarrhea (Chronic 05/15/12) h/o collagenous colitis 2009 on colonoscopy Edentulous (Acute 10/17/13) 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 MRSA (methicillin resistant staph aureus) culture positive (Acute 04/04/13) Hyponatremia (Acute 03/24/94) Abnormal weight loss (Acute 06/21/12) Hydradenitis (Acute) in rt upper thigh region Rash (Acute) Leg swelling (Acute) Bilateral knee pain (Acute) Left knee DJD (Chronic) Most recent injection: 08/30/22; 05/27/2021; 08/18/20; 03/31/2020 Hematuria (Acute) Thoracic aortic aneurysm (Acute) 4.[address] from 09/[address] from 10/2021 Lethargy (Acute) AMS (altered mental status) (Acute) Depression (Chronic) Hypokalemia (Acute) Hypomagnesemia (Acute) Schizoaffective disorder (Chronic) DVT prophylaxis (Acute) Acute CVA (cerebrovascular accident) (Acute) CVA (cerebral vascular accident) (Chronic) Rash (Acute) Dry skin (Acute) Status post right hip replacement (Acute 08/05/21) Medical History GERD (gastroesophageal reflux disease) Urge urinary incontinence Osteoarthritis Hypothyroidism Folliculitis Hx of malignant neoplasm of vagina Hx MRSA infection Surgical History History of hip replacement Colonoscopy - [facility] (02/14/17) Colonoscopy - [facility] (01/12/11) Social History Smoking/Tobacco Use Status: Current-Occasional Tobacco Type: cigarettes Smoking risk assessment performed?: Yes Alcohol Intake: current Alcohol Intake frequency: holidays/special occasions only Drug use: Never Substance use type: does not use Housing: apartment Current gender identity: female Do you feel safe at home: Yes Do you feel safe in your relationship?: Yes
[2023-11-07 16:16] VITALS: TEMP 36.9
[2023-11-07 16:20] VITALS: TEMP 37.8
[2023-11-07] MEDS: Normal Saline 1,000 ML 1000 ML IV (16:39)
[2023-11-07 16:55] LABS: Abs Immature Grans 0.03 10^3/uL (0.0-0.06); Absolute Basophil Count 0.04 10^3/uL (0.0-0.2); Absolute Eosinophil Count 0.02 10^3/uL (0.0-0.7); Absolute Monocyte Count 0.37 10^3/uL (0.1-0.8); Absolute Neutrophil Count 8.05 10^3/uL (1.2-6.7); Basophils % 0.4 %; Eosinophils % 0.2 %; HCT 38.3 % (36.0-46.0); HGB 12.6 g/dL (11.2-15.7); Immature Grans % 0.3 %; Lymphocytes % 8.6 %; MCH 31.2 pg (27.0-33.0); MCHC 32.9 % (32.0-36.0); MCV 95 fL (80-95); MPV 10.2 fL (8.0-11.0); Neutrophils % 86.5 %; Platelet Count 253 10^3/uL (130-400); RBC 4.04 10^6/uL (3.93-5.22); RDW 13.4 % (11.7-14.6); RDW-SD 47.2 fL; WBC 9.31 10^3/uL (4.4-10.8)
[2023-11-07 17:01] LABS: COVID-19 PCR Negative (Negative); Influenza A PCR Negative (Negative); Influenza B PCR Negative (Negative); RSV PCR Negative (Negative)
[2023-11-07 17:07] LABS: Source Nasopharynx
--- NOTE | 2023-11-07 17:13 | DI.CT_ITS ---
Exam(s) CT HEAD WO EXAM: CT HEAD WO CLINICAL HISTORY: ams, heat exposure, hx stroke. TECHNIQUE: Imaging Protocol: Axial computed tomography images with coronal and sagittal reformatted images were created and reviewed COMPARISON: CT CT BRAIN NECK CTA from 08/24/2023 FINDINGS: Ventricles and Extra axial spaces: Normal in size and morphology for the patient's age. Hemorrhage: None. Cerebral parenchyma: No evidence of acute infarct or mass. Midline shift: None. Brainstem/Cerebellum: Normal. Calvarium: Normal. Visualized Paranasal sinuses:Clear. Mastoids: Clear. Soft Tissues: Unremarkable. ORBITS: Unremarkable. PITUITARY: Not enlarged. IMPRESSION: No acute intracranial process. RADIATION DOSE DELIVERED: Total DLP DATA REPOSITORY: All CT scans at this facility are submitted to the National Radiology Data Registry (NRDR) Dose Index Registry (DIR) with the [employer] (ACR). RADIATION OPTIMIZATION: All CT scans at this facility use at least one of these dose optimization te chniques: automated exposure control; mA and/or kV adjustment per patient size (includes targeted exa ms where dose is matched to clinical indication); or iterative reconstruction.
--- NOTE | 2023-11-07 17:13 | DI.RAD_ITS ---
Exam(s) XR CHEST 2V PA LATERAL EXAM: XR CHEST 2V PA LATERAL CLINICAL HISTORY: ams, heat exposure TECHNIQUE: 2D digital imaging was performed. Two views. COMPARISON: No exams were available for comparison FINDINGS: HEART: Mildly enlarged. Aorta: Not dilated. PULMONARY VASCULATURE: Normal. MEDIASTINUM: Unremarkable. LUNGS: Clear. PLEURAL SPACE: No pleural effusion or pneumothorax. BONE:Unremarkable for age. SOFT TISSUES: Unremarkable. IMPRESSION: No acute abnormality. DATA REPOSITORY: RADIATION DOSE DELIVERED:
[2023-11-07 17:58] LABS: PTT Activated 24.9 sec (23.6-32.8); Prothrombin Time 10.5 sec (9.1-11.1)
[2023-11-07 18:12] LABS: ALT 28 U/L (14-59); AST 14 U/L (15-37); Albumin 3.3 g/dL (3.4-5.0); Alkaline Phosphatase 150 U/L (46-116); Anion Gap 6.4 mmol/L (3-11); BUN 12 mg/dL (7-18); Bilirubin, Total 0.38 mg/dL (0.2-1.0); CO2 28.6 mmol/L (21.0-32.0); CREATININE 0.8 mg/dL (0.55-1.02); Calcium 9.4 mg/dL (8.5-10.1); Chloride 106 mmol/L (98-107); Creatine Kinase 61 U/L (26-192); Estimated GFR 79.71 (mL/min/1.73m2); Glucose 130 mg/dL (74-106); Magnesium 1.9 mg/dL (1.8-2.4); NT-proBNP 222 pg/mL (<300); Potassium 3.8 mmol/L (3.5-5.1); Sodium 141 mmol/L (136-145); TSH 0.63 uIU/Ml (0.36-3.74); Troponin I < 50 ng/L (< or =60)
[2023-11-07 18:13] LABS: ETHANOL BLOOD < 3.0 mg/dL (<10)
[2023-11-07 18:41] VITALS: BP 168/90; PULSE 104; RESP 18; TEMP 37.8; O2SAT 96
--- NOTE | 2023-11-07 18:54 | NUR.NOTE ---
Home Health face to face completed by Dr Donohue, referral to Care Management for increased services. Nursing Note:
[2023-11-07 19:03] LABS: Bilirubin Negative (Negative); Blood Negative (Negative); Clarity Clear (Clear); Glucose Negative (Negative); Ketones Negative (Negative); Leukocyte Esterase Negative (Negative); Nitrite Negative (Negative); Specific Gravity 1.015 (1.005-1.025); Urobilinogen 0.2 mg/dL (Up to 0.2)
[2023-11-07 19:32] VITALS: BP 150/72; PULSE 80; RESP 18; TEMP 37; O2SAT 96
== END 2023-11-07 19:32 | disposition home or self-care (01) ==
PROVIDERS: Emergency Provider Emergency Medicine; PCP Family Medicine
DX: T67.5XXA Heat exhaustion, unspecified, initial encounter (principal); E86.0 Dehydration; I69.320 Aphasia following cerebral infarction; G24.01 Drug induced subacute dyskinesia; F25.9 Schizoaffective disorder, unspecified; F17.210 Nicotine dependence, cigarettes, uncomplicated; Z79.01 Long term (current) use of anticoagulants; X58.XXXA Exposure to other specified factors, initial encounter
CPT/HCPCS: 80053; 82550; 87637; 93005; 96360; 96361; 99285; 70450; 71046; 80320; 81003; 83735; 83880; 84443; 84484; 85025; 85610; 85730; 93010; 99284

== ENCOUNTER 2023-12-05 03:31 | Outpatient (CLI) | payer MEDICARE, SELFPAY ==
[2023-12-05 13:51] LABS: Abs Immature Grans 0.02 10^3/uL (0.0-0.06); Absolute Basophil Count 0.06 10^3/uL (0.0-0.2); Absolute Eosinophil Count 0.21 10^3/uL (0.0-0.7); Absolute Lymphocyte Count 1.53 10^3/uL (1.2-3.4); Absolute Monocyte Count 0.65 10^3/uL (0.1-0.8); Absolute Neutrophil Count 6.28 10^3/uL (1.2-6.7); Basophils % 0.7 %; Eosinophils % 2.4 %; HCT 38.2 % (36.0-46.0); HGB 12.3 g/dL (11.2-15.7); Immature Grans % 0.2 %; Lymphocytes % 17.5 %; MCH 31.5 pg (27.0-33.0); MCHC 32.2 % (32.0-36.0); MCV 98 fL (80-95); MPV 9.6 fL (8.0-11.0); Monocytes % 7.4 %; Neutrophils % 71.8 %; Platelet Count 288 10^3/uL (130-400); RBC 3.91 10^6/uL (3.93-5.22); RDW 13.3 % (11.7-14.6); RDW-SD 47.9 fL; WBC 8.75 10^3/uL (4.4-10.8)
[2023-12-05 15:07] LABS: Anion Gap 7.4 mmol/L (3-11); BUN 13 mg/dL (7-18); CO2 27.6 mmol/L (21.0-32.0); CREATININE 0.9 mg/dL (0.55-1.02); Calcium 9.8 mg/dL (8.5-10.1); Chloride 105 mmol/L (98-107); Glucose 81 mg/dL (74-106); Potassium 3.9 mmol/L (3.5-5.1); Sodium 140 mmol/L (136-145)
== END 2023-12-05 03:32 | disposition home or self-care (01) ==
PROVIDERS: Student in an Organized Health Care Education/Training Program; PCP Family Medicine; Visit Provider Nurse Practitioner Psychiatric/Mental Health
DX: M25.562 Pain in left knee (principal); Z79.899 Other long term (current) drug therapy
CPT/HCPCS: 36415; 80048; 85025

== ENCOUNTER 2024-01-04 03:42 | Outpatient (CLI) | payer MEDICARE, SELFPAY ==
[2024-01-04 15:16] LABS: Abs Immature Grans 0.03 10^3/uL (0.0-0.06); Absolute Basophil Count 0.05 10^3/uL (0.0-0.2); Absolute Lymphocyte Count 1.61 10^3/uL (1.2-3.4); Absolute Monocyte Count 0.53 10^3/uL (0.1-0.8); Absolute Neutrophil Count 6.74 10^3/uL (1.2-6.7); Basophils % 0.6 %; Eosinophils % 1.1 %; HCT 40.6 % (36.0-46.0); HGB 13.2 g/dL (11.2-15.7); Immature Grans % 0.3 %; Lymphocytes % 17.8 %; MCH 30.8 pg (27.0-33.0); MCHC 32.5 % (32.0-36.0); MCV 95 fL (80-95); Monocytes % 5.8 %; Neutrophils % 74.4 %; Platelet Count 274 10^3/uL (130-400); RBC 4.29 10^6/uL (3.93-5.22); RDW 12.5 % (11.7-14.6); RDW-SD 43.6 fL; WBC 9.06 10^3/uL (4.4-10.8)
== END 2024-01-04 03:43 | disposition home or self-care (01) ==
LOC: LBO 03:42
PROVIDERS: PCP Family Medicine; Visit Provider Nurse Practitioner Psychiatric/Mental Health
DX: Z79.899 Other long term (current) drug therapy (principal); F25.0 Schizoaffective disorder, bipolar type
CPT/HCPCS: 36415; 85025

== ENCOUNTER 2024-02-01 02:54 | Outpatient (CLI) | payer MEDICARE, SELFPAY ==
[2024-02-01 16:16] LABS: Abs Immature Grans 0.02 10^3/uL (0.0-0.06); Absolute Basophil Count 0.05 10^3/uL (0.0-0.2); Absolute Lymphocyte Count 1.64 10^3/uL (1.2-3.4); Absolute Monocyte Count 0.67 10^3/uL (0.1-0.8); Absolute Neutrophil Count 6.41 10^3/uL (1.2-6.7); Basophils % 0.6 %; Eosinophils % 1.1 %; HCT 41.2 % (36.0-46.0); HGB 13.3 g/dL (11.2-15.7); Immature Grans % 0.2 %; Lymphocytes % 18.4 %; MCH 30.5 pg (27.0-33.0); MCHC 32.3 % (32.0-36.0); MCV 95 fL (80-95); Monocytes % 7.5 %; Neutrophils % 72.2 %; Platelet Count 247 10^3/uL (130-400); RBC 4.36 10^6/uL (3.93-5.22); RDW 12.5 % (11.7-14.6); RDW-SD 43.9 fL; WBC 8.89 10^3/uL (4.4-10.8)
== END 2024-02-01 02:55 | disposition home or self-care (01) ==
LOC: LBO 02:54
PROVIDERS: PCP Family Medicine; Visit Provider Nurse Practitioner Psychiatric/Mental Health
DX: F25.0 Schizoaffective disorder, bipolar type (principal); Z79.899 Other long term (current) drug therapy
CPT/HCPCS: 36415; 85025

== ENCOUNTER 2024-02-29 02:11 | Outpatient (CLI) | payer MEDICARE, SELFPAY ==
--- NOTE | 2024-02-29 07:45 | DI.MAMMO_ITS ---
Exam(s) MAMMO SCREENING EXAM: MAMMO SCREENING CLINICAL HISTORY: screening,Z12.39 TECHNIQUE: Bilateral full field digital CC and MLO mammographic images were obtained with 3D tomosyn thesis and utilizing computer aided detection (CAD). COMPARISON: Available for comparison. FINDINGS: Masses/Architectural Distortion: None seen. Microcalcifications: No suspicious pleomorphic-type are seen. Skin Thickening/Nipple Retraction: None. IMPRESSION: 1. No significant interval change with no specific features of malignancy noted. 2. Unless there is more urgent need, screening mammography is recommended, as per [employer] guidelines. BI-RADS Category 1 - Negative Breast Density - Category B - Scattered areas of fibroglandular density Breast density category C or D implies that the patient has dense breast tissue. Dense breast tissue is very common and is not abnormal but dense breast tissue can make it harder to find cancer on a ma mmogram. Also, dense breast tissue may increase their breast cancer risk. This information about the result of the mammogram report was provided to the patient to raise their awareness. Use this report when you speak with the patient about their risks for breast cancer, which includes their family hist ory. At that time, you may recommend for more screening tests (Ultrasound or MRI) as they might be us eful based on their risk. A negative radiographic report should not delay biopsy if a dominant or clinically suspicious mass is present. Up to ten percent of cancers are not identified on mammography. A negative report may reinforce clinical impression. Adenosis and dense breasts may obscure an underlying neoplasm. False positive reports average 6 to 10%. Patient will receive a letter notifying them of these results.
== END 2024-02-29 02:31 ==
PROVIDERS: PCP Family Medicine; Visit Provider Family Medicine
DX: Z12.31 Encounter for screening mammogram for malignant neoplasm of breast (principal); R92.323 Mammographic fibroglandular density, bilateral breasts
CPT/HCPCS: 36415; 77063; 77067; 85025

== ENCOUNTER 2024-02-29 03:25 | Outpatient (CLI) | payer MEDICARE, SELFPAY ==
[2024-02-29 14:58] LABS: Abs Immature Grans 0.04 10^3/uL (0.0-0.06); Absolute Basophil Count 0.04 10^3/uL (0.0-0.2); Absolute Eosinophil Count 0.09 10^3/uL (0.0-0.7); Absolute Lymphocyte Count 1.28 10^3/uL (1.2-3.4); Absolute Monocyte Count 0.71 10^3/uL (0.1-0.8); Absolute Neutrophil Count 8.21 10^3/uL (1.2-6.7); Basophils % 0.4 %; Eosinophils % 0.9 %; HCT 39.2 % (36.0-46.0); HGB 12.7 g/dL (11.2-15.7); Immature Grans % 0.4 %; Lymphocytes % 12.3 %; MCH 30.2 pg (27.0-33.0); MCHC 32.4 % (32.0-36.0); MCV 93 fL (80-95); MPV 9.5 fL (8.0-11.0); Monocytes % 6.8 %; Neutrophils % 79.2 %; Platelet Count 313 10^3/uL (130-400); RDW 12.8 % (11.7-14.6); RDW-SD 43.7 fL; WBC 10.37 10^3/uL (4.4-10.8)
== END 2024-02-29 03:26 | disposition home or self-care (01) ==
LOC: LBO 03:26
PROVIDERS: PCP Family Medicine; Visit Provider Nurse Practitioner Psychiatric/Mental Health
DX: F25.0 Schizoaffective disorder, bipolar type (principal); Z79.899 Other long term (current) drug therapy
CPT/HCPCS: 36415; 85025

== ENCOUNTER 2024-04-12 15:25 | Outpatient (CLI) | payer MEDICARE, SELFPAY ==
[2024-04-12 14:54] LABS: Abs Immature Grans 0.03 10^3/uL (0.0-0.06); Absolute Basophil Count 0.05 10^3/uL (0.0-0.2); Absolute Eosinophil Count 0.11 10^3/uL (0.0-0.7); Absolute Lymphocyte Count 1.43 10^3/uL (1.2-3.4); Absolute Neutrophil Count 5.72 10^3/uL (1.2-6.7); Basophils % 0.6 %; Eosinophils % 1.4 %; HCT 38.3 % (36.0-46.0); HGB 12.4 g/dL (11.2-15.7); Immature Grans % 0.4 %; Lymphocytes % 17.6 %; MCH 30.8 pg (27.0-33.0); MCHC 32.4 % (32.0-36.0); MCV 95 fL (80-95); MPV 9.8 fL (8.0-11.0); Monocytes % 9.8 %; Neutrophils % 70.2 %; Platelet Count 256 10^3/uL (130-400); RBC 4.02 10^6/uL (3.93-5.22); RDW 13.2 % (11.7-14.6); WBC 8.14 10^3/uL (4.4-10.8)
== END 2024-04-12 15:26 | disposition home or self-care (01) ==
LOC: LBO 15:26
PROVIDERS: PCP Family Medicine; Visit Provider Nurse Practitioner Psychiatric/Mental Health
DX: Z79.899 Other long term (current) drug therapy (principal); M17.12 Unilateral primary osteoarthritis, left knee; M25.412 Effusion, left shoulder
CPT/HCPCS: 20610; 36415; J1010; 73030; 85025

== ENCOUNTER 2024-04-12 15:31 | Outpatient (CLI) | payer MEDICARE, SELFPAY ==
--- NOTE | 2024-04-12 13:30 | DI.RAD_ITS ---
Exam(s) XR SHOULDER LT COMPLETE 2+V EXAM: XR SHOULDER LT COMPLETE 2+V CLINICAL HISTORY: left shoulder pain and effusion. TECHNIQUE: 2D digital imaging was performed of the left shoulder. Two images were obtained. Grashe y and axillary views were obtained. COMPARISON: CR XR SHOULDER LT COMPLETE 2+V from 02/16/2021 FINDINGS: BONES: No acute fracture is present. No bony destructive lesion is seen. JOINTS: There is marked narrowing of the glenohumeral joint. There is also flattening of the articul ar surfaces on both the glenoid and the humeral head. Mild degenerative changes are seen at the acro mioclavicular joint. SOFT TISSUE: Normal. IMPRESSION: Marked degenerative changes seen at the glenohumeral joint. DATA REPOSITORY: RADIATION DOSE DELIVERED:
== END 2024-04-12 15:32 | disposition home or self-care (01) ==
LOC: DIORS 15:31
PROVIDERS: PCP Family Medicine; Referring Provider Family Medicine; Visit Provider Student in an Organized Health Care Education/Training Program
DX: M25.412 Effusion, left shoulder (principal); M19.012 Primary osteoarthritis, left shoulder; M17.12 Unilateral primary osteoarthritis, left knee; M71.312 Other bursal cyst, left shoulder
CPT/HCPCS: 20610; J1010; 73030

== ENCOUNTER 2024-05-02 18:18 | Outpatient (CLI) | payer MEDICARE, SELFPAY ==
[2024-05-02 15:12] LABS: Abs Immature Grans 0.02 10^3/uL (0.0-0.06); Absolute Basophil Count 0.06 10^3/uL (0.0-0.2); Absolute Eosinophil Count 0.11 10^3/uL (0.0-0.7); Absolute Lymphocyte Count 1.29 10^3/uL (1.2-3.4); Absolute Neutrophil Count 4.93 10^3/uL (1.2-6.7); Basophils % 0.9 %; Eosinophils % 1.6 %; HCT 40.1 % (36.0-46.0); HGB 12.9 g/dL (11.2-15.7); Immature Grans % 0.3 %; Lymphocytes % 18.4 %; MCH 30.8 pg (27.0-33.0); MCHC 32.2 % (32.0-36.0); MCV 96 fL (80-95); MPV 9.5 fL (8.0-11.0); Monocytes % 8.6 %; Neutrophils % 70.2 %; Platelet Count 237 10^3/uL (130-400); RBC 4.19 10^6/uL (3.93-5.22); RDW 13.7 % (11.7-14.6); RDW-SD 48.3 fL; WBC 7.01 10^3/uL (4.4-10.8)
== END 2024-05-02 18:19 | disposition home or self-care (01) ==
LOC: LBO 18:20
PROVIDERS: PCP Family Medicine; Visit Provider Nurse Practitioner Psychiatric/Mental Health
DX: Z79.899 Other long term (current) drug therapy (principal); F25.0 Schizoaffective disorder, bipolar type
CPT/HCPCS: 36415; 85025

== ENCOUNTER 2024-05-30 16:16 | Outpatient (CLI) | payer MEDICARE, SELFPAY ==
[2024-05-30 16:52] LABS: Abs Immature Grans 0.04 10^3/uL (0.0-0.06); Absolute Basophil Count 0.05 10^3/uL (0.0-0.2); Absolute Eosinophil Count 0.13 10^3/uL (0.0-0.7); Absolute Lymphocyte Count 1.75 10^3/uL (1.2-3.4); Absolute Monocyte Count 0.68 10^3/uL (0.1-0.8); Absolute Neutrophil Count 6.06 10^3/uL (1.2-6.7); Basophils % 0.6 %; Eosinophils % 1.5 %; HCT 42.3 % (36.0-46.0); HGB 13.5 g/dL (11.2-15.7); Immature Grans % 0.5 %; Lymphocytes % 20.1 %; MCH 30.8 pg (27.0-33.0); MCHC 31.9 % (32.0-36.0); MCV 97 fL (80-95); MPV 9.9 fL (8.0-11.0); Monocytes % 7.8 %; Neutrophils % 69.5 %; Platelet Count 270 10^3/uL (130-400); RBC 4.38 10^6/uL (3.93-5.22); RDW 12.9 % (11.7-14.6); RDW-SD 46.5 fL; WBC 8.71 10^3/uL (4.4-10.8)
== END 2024-05-30 16:17 | disposition home or self-care (01) ==
LOC: LBO 06-12 16:17
PROVIDERS: PCP Family Medicine; Visit Provider Nurse Practitioner Psychiatric/Mental Health
DX: F25.0 Schizoaffective disorder, bipolar type (principal); Z79.899 Other long term (current) drug therapy
CPT/HCPCS: 36415; 85025

== ENCOUNTER 2024-06-27 03:31 | Outpatient (CLI) | payer MEDICARE, SELFPAY ==
[2024-06-27 15:35] LABS: Abs Immature Grans 0.02 10^3/uL (0.0-0.06); Absolute Basophil Count 0.07 10^3/uL (0.0-0.2); Absolute Eosinophil Count 0.22 10^3/uL (0.0-0.7); Absolute Monocyte Count 0.64 10^3/uL (0.1-0.8); Absolute Neutrophil Count 4.83 10^3/uL (1.2-6.7); Basophils % 0.9 %; Eosinophils % 2.9 %; HCT 39.3 % (36.0-46.0); HGB 12.4 g/dL (11.2-15.7); Immature Grans % 0.3 %; Lymphocytes % 22.7 %; MCH 30.7 pg (27.0-33.0); MCHC 31.6 % (32.0-36.0); MCV 97 fL (80-95); MPV 9.6 fL (8.0-11.0); Monocytes % 8.6 %; Neutrophils % 64.6 %; Platelet Count 270 10^3/uL (130-400); RBC 4.04 10^6/uL (3.93-5.22); RDW 12.7 % (11.7-14.6); WBC 7.48 10^3/uL (4.4-10.8)
== END 2024-06-27 03:32 | disposition home or self-care (01) ==
LOC: LBO 03:31
PROVIDERS: PCP Family Medicine; Visit Provider Nurse Practitioner Psychiatric/Mental Health
DX: F25.0 Schizoaffective disorder, bipolar type (principal); Z79.899 Other long term (current) drug therapy
CPT/HCPCS: 36415; 85025

== ENCOUNTER → 2024-07-12 12:58 | Outpatient (BNVA) | payer MEDICARE, SELFPAY | PROVIDERS: PCP Family Medicine; Referring Provider Family Medicine; Visit Provider Student in an Organized Health Care Education/Training Program | DX: M19.012 Primary osteoarthritis, left shoulder (principal); M17.12 Unilateral primary osteoarthritis, left knee | CPT/HCPCS: 20610; J1010 ==

== ENCOUNTER 2024-07-26 03:32 | Outpatient (CLI) | payer MEDICARE, SELFPAY ==
[2024-07-26 15:43] LABS: Abs Immature Grans 0.05 10^3/uL (0.0-0.06); Absolute Basophil Count 0.06 10^3/uL (0.0-0.2); Absolute Monocyte Count 0.72 10^3/uL (0.1-0.8); Basophils % 0.5 %; Eosinophils % 0.7 %; HCT 42.6 % (36.0-46.0); HGB 13.6 g/dL (11.2-15.7); Immature Grans % 0.4 %; Lymphocytes % 13.7 %; MCH 30.6 pg (27.0-33.0); MCHC 31.9 % (32.0-36.0); MCV 96 fL (80-95); MPV 9.9 fL (8.0-11.0); Neutrophils % 78.7 %; Platelet Count 257 10^3/uL (130-400); RBC 4.44 10^6/uL (3.93-5.22); RDW 12.6 % (11.7-14.6); RDW-SD 44.2 fL; WBC 12.08 10^3/uL (4.4-10.8)
[2024-07-26 15:45] LABS: Absolute Eosinophil Count 0.08 10^3/uL (0.0-0.7); Absolute Lymphocyte Count 1.65 10^3/uL (1.2-3.4); Absolute Neutrophil Count 9.51 10^3/uL (1.2-6.7)
== END 2024-07-26 03:33 | disposition home or self-care (01) ==
LOC: LBO 03:32
PROVIDERS: PCP Family Medicine; Visit Provider Nurse Practitioner Psychiatric/Mental Health
DX: Z79.899 Other long term (current) drug therapy (principal); F25.0 Schizoaffective disorder, bipolar type
CPT/HCPCS: 36415; 85025

== ENCOUNTER 2024-09-04 03:50 | Outpatient (CLI) | payer MEDICARE, SELFPAY ==
[2024-09-04 13:13] LABS: Abs Immature Grans 0.02 10^3/uL (0.0-0.06); Absolute Basophil Count 0.06 10^3/uL (0.0-0.2); Absolute Eosinophil Count 0.14 10^3/uL (0.0-0.7); Absolute Lymphocyte Count 1.41 10^3/uL (1.2-3.4); Absolute Monocyte Count 0.57 10^3/uL (0.1-0.8); Absolute Neutrophil Count 6.23 10^3/uL (1.2-6.7); Basophils % 0.7 %; Eosinophils % 1.7 %; HCT 40.8 % (36.0-46.0); HGB 13.3 g/dL (11.2-15.7); Immature Grans % 0.2 %; Lymphocytes % 16.7 %; MCH 30.7 pg (27.0-33.0); MCHC 32.6 % (32.0-36.0); MCV 94 fL (80-95); MPV 9.7 fL (8.0-11.0); Monocytes % 6.8 %; Neutrophils % 73.9 %; Platelet Count 287 10^3/uL (130-400); RBC 4.33 10^6/uL (3.93-5.22); RDW-SD 44.7 fL; WBC 8.43 10^3/uL (4.4-10.8)
[2024-09-04 14:19] LABS: TSH (W/Ref FT4) 1.14 uIU/mL (0.36-3.74)
== END 2024-09-04 03:51 | disposition home or self-care (01) ==
LOC: LBO 03:50
PROVIDERS: PCP Family Medicine; Visit Provider Nurse Practitioner Psychiatric/Mental Health
DX: E03.9 Hypothyroidism, unspecified (principal); F25.0 Schizoaffective disorder, bipolar type; Z79.899 Other long term (current) drug therapy
CPT/HCPCS: 36415; 84443; 85025

== ENCOUNTER 2024-09-20 12:55 | Inpatient (IN) | payer MEDICARE, SELFPAY ==
[2024-09-20] VITALS (10 sets, daily range): BP systolic 107–167; BP diastolic 41–103; PULSE 52–79; RESP 10–18; TEMP 36.2; O2SAT 92–99
--- NOTE | 2024-09-20 12:54 | DI.CT_ITS ---
Exam(s) CT HEAD NECK WO EXAM: CT HEAD CLINICAL HISTORY: Acute encephalopathy TECHNIQUE: COMPARISON: CT CT HEAD WO from 11/07/2023 FINDINGS: This is being dictated as a noninfused brain CT scan. Was apparently intended to be CT angio but the re is no contrast visible in the vascular system. Apparently there was extravasation of the contrast . There are no skull fractures and there are is no fluid in the paranasal sinuses. Retention cysts not ed in left maxillary sinus. There is no evidence of intracranial hemorrhage, mass effect, nor shift of midline structures. No ex tra-axial fluid collections. Ventricles are not enlarged or shifted and there is no blood within the ventricular system nor within the basal cisterns. IMPRESSION: No acute intracranial findings on this noninfused CT scan of the brain.
--- NOTE | 2024-09-20 13:00 | RT.EKG_ITS ---
APPROVED REPORT Exam: Resting ECG Reason for Exam: Chest pain Patient Location: E HR:55 bpm ECG Measurements Heart Rate 55 AXIS WA 158 P 80 QRSd 98 QRS 77 QT 445 T 67 QTc 426 Conclusion Sinus bradycardia...rate< 60 Probable left atrial enlargement...P >50mS, <-0.10mV V1 No Occlusion VA
--- NOTE | 2024-09-20 13:02 | W.ED.GENAD ---
Discharge Plan Disposition Patient Disposition: Admit to [facility] Discharge Details Chief Complaint: CVA/TIA Clinical Impression: Acute encephalopathy Admit Date/Time: 09/20/24 15:43 Admit Provider: Cas Ramirez Attending Provider: Cas Ramirez Primary Care Provider: Dillon Scott ED Provider: Cas Henao Discharge Data Discharge Date/Time-TO BE ENTERED AT DEPARTURE: 09/20/24 16:54 HPI General Date/Time Provider Initiated Documentation: 09/20/24 13:00. HPI Narrative: MDM Broad differential of acute encephalopathy is a 69-year-old female with prior history of CVA tardive dyskinesia and schizoaffective disorder. Patient unable to provide history. No obvious tonic-clonic activity to suggest seizure so we will defer EEG. No fevers to suggest meningitis so we will defer lumbar puncture. Will assess labs to assess for hyponatremia and ACS using ECG. Will straight catheter urinalysis. Will obtain CTA to assess for large vessel occlusion and intracranial hemorrhage. Anticipate touching base with teleneurology. Unknown last know well so not a candidate for lytics. Patient may need updated HUA. 3:12 PM I was in touch with Dr. De Jesus from neurology at [facility]. She advised 324 mg aspirin and hospitalization for MRI. I met with the patient. She remained nonverbal. She was able to follow commands. She had reassuring labs. She had no signs of myocardial injury no signs of any salicylate acetaminophen or ethanol abnormalities. She had reassuring ammonia. She had a normal TSH. 09/21 Late charting due to patient care. Patient was accepted by Dr. Ramirez for hospitalization. We did not collect her UA in the ED. I med Ran Pak from the hospitalist service. She will follow up to ensure a UA is obtained. 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 Diagnostic interpretations performed by me: Per my independent interpretation chest x-ray shows: No acute cardiopulmonary process. Per my independent interpretation EKG shows: Sinus bradycardia. Intervals within normal limits. No ischemia. ]Medications: Aspirin NE Social determinants of health affecting disposition: N/A Management discussed with: Neurology & hospitalist History of Present Illness The patient presents to the emergency room for evaluation of aphasia. She was found in a state of aphasia, unable to articulate words or form coherent speech. She exhibits consistent movements and appears to be attempting communication, but is unable to do so. She resides alone and receives monthly check-ins from a family member. She has a past medical history of a cerebrovascular accident 3 years prior and a known tendency to mismanage her medication regimen. The only symptom she has is aphasia. Despite the aphasia, she demonstrates equal strength in both hands and is able to stand, although with noticeable weakness. Her blood glucose level was recorded at 122, within the normal range. All other vital signs were within normal limits, except for a slightly elevated blood pressure of 156/82. Her heart rate was 68 and pulse oximetry reading was 99% on room air. She is not experiencing any chest pain. There is no history of falls or recent falls reported. Exam General: Elderly-appearing in mild distress. Difficulty forming words. Head: Normocephalic, atraumatic. Eye: Extraocular eye movements intact. No conjunctival injection. No scleral icterus. Ear, nose, mouth, throat: Grossly normal inspection. Normal voice, handling secretions normally. Neck: Trachea midline. Cardiovascular: Well-perfused distal extremities. Regular rate and rhythm. Respiratory: Nonlabored respiration. Clear lungs bilaterally. Gastrointestinal: Nondistended abdomen. Soft nontender. Musculoskeletal: No edema. Moving all 4 extremities spontaneously. Skin: Normal for age and race, grossly normal temperature and turgor. No acute rash. Neurologic: Patient's eyes are open. She intermittently has rhythmic twitching movements of her face and hands. She does follow some commands. She can track with her eyes. She lifts her left leg. She is nonverbal. She appears frustrated trying to form words. Psychiatric: Mood and manner are appropriate. Grooming and personal hygiene are appropriate. Related Data Home Medications ?Medication ?Instructions ?Recorded ?Confirmed bupropion HCl 100 mg tablet,12 hr 100 mg PO QAM #30 tabs 04/07/21 09/20/24 sustained-release ascorbate calcium (vitamin C) 500 500 mg PO DAILY 07/15/21 09/20/24 mg tablet melatonin 3 mg capsule 3 mg PO HS PRN 07/15/21 09/20/24 Bedside Commode #1 ea 08/03/21 09/19/24 Raised Toilet Seat #1 ea 08/03/21 09/19/24 acetaminophen 500 mg tablet 1,000 mg (2 x 500 mg) PO TID #90 11/11/21 09/20/24 tabs clozapine 200 mg tablet 200 mg PO QHS 09/29/23 09/20/24 clozapine 50 mg tablet 50 mg PO DAILY 09/29/23 09/20/24 furosemide 20 mg tablet 20 mg PO DAILY PRN edema #30 tabs 09/29/23 09/20/24 levothyroxine 88 mcg tablet 88 mcg PO DAILY #90 tabs 12/05/23 09/20/24 loratadine 10 mg tablet 10 mg PO DAILY #90 tabs 12/05/23 09/20/24 atorvastatin 40 mg tablet 40 mg PO QPM #90 tabs 02/27/24 09/20/24 famotidine 20 mg tablet 20 mg PO DAILY #90 tabs 04/24/24 09/20/24 clopidogrel 75 mg tablet 75 mg PO DAILY #90 tabs 08/13/24 09/20/24 clozapine 100 mg tablet 100 mg PO ONCE PRN 08/23/24 09/20/24 Previous Rx's ?Medication ?Instructions ?Recorded bupropion HCl 100 mg tablet,12 hr 100 mg PO QAM #30 tabs 04/07/21 sustained-release Bedside Commode #1 ea 08/03/21 Raised Toilet Seat #1 ea 08/03/21 acetaminophen 500 mg tablet 1,000 mg (2 x 500 mg) PO TID #90 11/11/21 tabs furosemide 20 mg tablet 20 mg PO DAILY PRN edema #30 tabs 09/29/23 levothyroxine 88 mcg tablet 88 mcg PO DAILY #90 tabs 12/05/23 loratadine 10 mg tablet 10 mg PO DAILY #90 tabs 12/05/23 atorvastatin 40 mg tablet 40 mg PO QPM #90 tabs 02/27/24 famotidine 20 mg tablet 20 mg PO DAILY #90 tabs 04/24/24 clopidogrel 75 mg tablet 75 mg PO DAILY #90 tabs 08/13/24 Allergies Allergy/AdvReac Type Severity Reaction Status Date / Time chlorpheniramine Allergy Unknown Verified 09/20/24 15:08 erythromycin base Allergy Skin Rash Verified 09/20/24 15:08 Penicillins Allergy Rash, Verified 09/20/24 15:08 troubles breathing per pt General Stated Complaint: CVA/TIA JESSICA: 2 Medical Decision Making Quality:SDOH Health Related Social Needs: No Data to Display PFSH All Active Problems (Updated 05/09/24 @ 11:44 by Alona Alvarez) Acute encephalopathy (Acute) Arthritis of left shoulder region (Chronic) DEPO MEDROL 07/12/24 Other bursal cyst, left shoulder (Chronic) Swelling of joint, shoulder, left (Chronic) Nail dystrophy (Chronic) Edema (Chronic) Cough (Chronic) Contraindication to deep vein thrombosis (DVT) prophylaxis (Chronic) Tardive dyskinesia (Chronic) Dysarthria (Chronic) Difficulty comprehending speech (Chronic) PVD (peripheral vascular disease) (Chronic) Malaise (Chronic) Low back pain (Chronic) Elevated serum alkaline phosphatase level (Chronic) Peripheral edema (Chronic) Left knee pain (Chronic) History of total left hip replacement (Chronic 11/11/21) Schizoaffective disorder (Chronic) Chronic diarrhea (Chronic) Diarrhea (Chronic 05/15/12) h/o collagenous colitis 2008 on colonoscopy Edentulous (Chronic 10/17/13) 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 MRSA (methicillin resistant staph aureus) culture positive (Chronic 04/04/13) Hyponatremia (Chronic 03/24/94) Abnormal weight loss (Chronic 06/21/12) Hydradenitis (Chronic) in rt upper thigh region Rash (Chronic) Leg swelling (Chronic) Bilateral knee pain (Chronic) Left knee DJD (Chronic) Most recent injection: 04/12/24; 08/30/22; 05/27/2021; 08/18/20; 03/31/2020 Hematuria (Chronic) Thoracic aortic aneurysm (Chronic) 4.[address] from 09/[address] from 10/2021 Lethargy (Chronic) AMS (altered mental status) (Chronic) Depression (Chronic) Hypokalemia (Chronic) Elevated troponin (Chronic) Accidental overdose (Chronic) Hypokalemia (Chronic) Hypomagnesemia (Chronic) Left shoulder pain (Chronic) Right leg pain (Chronic) Schizoaffective disorder (Chronic) DVT prophylaxis (Chronic) Acute CVA (cerebrovascular accident) (Chronic) CVA (cerebral vascular accident) (Chronic) Rash (Chronic) Dry skin (Chronic) Status post right hip replacement (Chronic 08/05/21) Medical History (Updated 09/20/24 @ 13:02 by Cas Henao MD) GERD (gastroesophageal reflux disease) Urge urinary incontinence Osteoarthritis Hypothyroidism Folliculitis Hx of malignant neoplasm of vagina Hx MRSA infection Surgical History (Updated 05/09/24 @ 11:44 by Alona Alvarez) History of hip replacement Colonoscopy - MAC (02/14/17) Colonoscopy - MAC (01/12/11) Social History Smoking/Tobacco Use Status: Current-Occasional Tobacco Type: cigarettes Smoking risk assessment performed?: Yes Alcohol Intake: current Alcohol Intake frequency: holidays/special occasions only Drug use: Never Substance use type: does not use Housing: apartment Current gender identity: female Do you feel safe at home: Yes Do you feel safe in your relationship?: Yes
[2024-09-20] MEDS: Omnipaque 350 MG/ML 100 ML BTL IJ (13:03)
[2024-09-20] MEDS: Normal Saline - Diluent 50 ML VIAL IJ (13:03)
[2024-09-20 13:28] LABS: Absolute Basophil Count 0.04 10^3/uL (0.0-0.2); Absolute Eosinophil Count 0.16 10^3/uL (0.0-0.7); Absolute Lymphocyte Count 1.48 10^3/uL (1.2-3.4); Absolute Monocyte Count 0.55 10^3/uL (0.1-0.8); Absolute Neutrophil Count 3.31 10^3/uL (1.2-6.7); Basophils % 0.7 %; Eosinophils % 2.9 %; HCT 42.3 % (36.0-46.0); HGB 13.6 g/dL (11.2-15.7); Lymphocytes % 26.7 %; MCHC 32.2 % (32.0-36.0); MCV 93 fL (80-95); MPV 10.1 fL (8.0-11.0); Monocytes % 9.9 %; Neutrophils % 59.8 %; Platelet Count 268 10^3/uL (130-400); RBC 4.54 10^6/uL (3.93-5.22); RDW 12.8 % (11.7-14.6); RDW-SD 43.6 fL; WBC 5.54 10^3/uL (4.4-10.8)
[2024-09-20 13:54] LABS: ALT 31 U/L (14-59); AST 25 U/L (15-37); Albumin 3.9 g/dL (3.4-5.0); Alkaline Phosphatase 152 U/L (46-116); Anion Gap 8.2 mmol/L (3-11); BUN 23 mg/dL (7-18); Bilirubin, Total 0.7 mg/dL (0.2-1.0); CO2 27.8 mmol/L (21.0-32.0); CREATININE 0.8 mg/dL (0.55-1.02); Calcium 10.3 mg/dL (8.5-10.1); Chloride 106 mmol/L (98-107); Estimated GFR 79.22 (mL/min/1.73m2); Glucose 101 mg/dL (74-106); Potassium 3.7 mmol/L (3.5-5.1); Sodium 142 mmol/L (136-145); Total Protein 7.1 g/dL (6.4-8.2)
[2024-09-20 14:05] LABS: Magnesium 1.8 mg/dL (1.8-2.4); TSH (W/Ref FT4) 2.36 uIU/mL (0.36-3.74); Troponin I 8 ng/L (<or=51)
[2024-09-20 14:07] LABS: ETHANOL BLOOD < 3.0 mg/dL (<10)
[2024-09-20 14:24] LABS: Ammonia < 10 umol/L (11-32)
[2024-09-20 14:43] LABS: COVID-19 PCR Negative (Negative); Influenza A PCR Negative (Negative); Influenza B PCR Negative (Negative); RSV PCR Negative (Negative)
--- NOTE | 2024-09-20 14:43 | DI.RAD_ITS ---
Exam(s) XR PORTABLE CHEST AP EXAM: XR PORTABLE CHEST AP CLINICAL HISTORY: Acute encephalopathy. TECHNIQUE: 2D digital imaging was performed. COMPARISON: CR XR CHEST 2V PA LATERAL from 11/07/2023 FINDINGS: Single AP portable view. Heart size is upper normal. The mediastinum is not widened. Lungs are clear. No infiltrates nor obvious pleural effusions. Advanced degenerative changes in the right shoulder again noted IMPRESSION: No acute pulmonary findings on this single AP portable view of the chest. Advanced degenerative changes in the right shoulder noted. DATA REPOSITORY: RADIATION DOSE DELIVERED:
[2024-09-20 14:46] LABS: Source Nasopharynx
[2024-09-20 14:47] LABS: Acetaminophen < 2 ug/mL (10-30); Salicylate < 2.8 mg/dL (<2.8)
[2024-09-20] MEDS: Normal Saline 500 ML 1000 ML IV (14:48)
[2024-09-20 14:59] LABS: Troponin I 8 ng/L (<or=51)
--- NOTE | 2024-09-20 15:00 | DI.MRI_ITS ---
Exam(s) MR BRAIN WO EXAM: MR BRAIN WO CLINICAL HISTORY: Acute encephalopathy TECHNIQUE: Multiplanar multisequence MRI of the brain was performed. COMPARISON: MR MR BRAIN WO/W from 08/25/[address] HEAD NECK WO from 09/20/2024 FINDINGS: CEREBRAL PARENCHYMA: There is no evidence of intracranial hemorrhage, mass effect, or shift of midline structures. There are no extra-axial fluid collections. Ventricles are not enlarged or shifted. There is no significant focal signal abnormality in the cerebellar hemispheres nor within the merlyn, m idbrain, and thalami. There is no abnormal signal abnormality in the periventricular white matter. There is no significant focal signal abnormality evident on diffusion imaging to suggest acute ischem ic event. PITUITARY GLAND: No mass nor parasellar abnormality. No obvious abnormality in the cavernous sinuses. FLOW VOIDS: The expected flow void are noted. No evidence of obvious aneurysm nor obvious vascular ma lformation. The left vertebral artery is dominant. PARANASAL SINUSES: The visualized paranasal sinuses appear unremarkable. No obvious finding ORBITS: No obvious findings. IMPRESSION: No significant acute intracranial findings on this noninfused MRI scan of the brain. DATA REPOSITORY:
--- NOTE | 2024-09-20 15:22 | HPE_ITS ---
Date of service: 09/20/24 Time of Service: 15:22 Assessment and Plan Assessment and plan (1) Acute encephalopathy: Status: Acute Assessment and plan: Altered speech,weakness but non-focal- Ongoing CVA/TIA workup Head CT negative MRI pending- was negative but restless - will give a small dose of lorazepam and resume her home meds- most likely not compliant as per previous history A1C - lipids On home plavix ASA VT in ED Neuro consult telemtry Echo with bubble workup will rule out infectious etiology UA pending No sepsis criteria on admission (2) Acute CVA (cerebrovascular accident): Status: Chronic Assessment and plan: History of CVA and as above Lovenox for DVT prophylaxis (3) Arthritis of left shoulder region: Status: Chronic Assessment and plan: Steroid outpatient (4) Tardive dyskinesia: Status: Chronic Assessment and plan: History of will continue home meds discussed with Dr. Ramirez History of Present Illness History of Present Illness Chief Complaint: AMS Narrative: This 68-year-old female with a PMHx of CVA schizo-affective disorder, tardive dyskinesia presented to the ED via EMS for evaluation of inarticulate/ incoherent speech, with persistent movement and attempts to communicate. As per Ed provider the patient was aphasic with equal strength to hands, able to stand with noticeable weakness. CT imaging was negative for acute intracranial findings, blood work was unremarkable except for a minimal elevation in alk phos. [facility] was consulted with recommendation for MRI, and stroke work-up. The patient was admitted to the medical surgical floor for CVA./ TIA. On a previous stay a year ago with similar presentation with negative strke work-up and resolution of symtoms; as psych eval was completed with Rx adjustment. At the time the patient's listed healthcare proxy//agent Shanice AYALA was not reached when called at those phone numbers [phone]. The patient had remained a full code then. ROS was limited d/t the patient impaired communication. But no report of hallucination, fevers, nausea, vomting, pain, diaarhea or burning on urination. Review of Systems All systems reviewed & are unremarkable except as noted in HPI and below PFSH All Active Problems (Updated 05/09/24 @ 11:44 by Alona Alvarez) Acute encephalopathy (Acute) Arthritis of left shoulder region (Chronic) DEPO MEDROL 07/12/24 Other bursal cyst, left shoulder (Chronic) Swelling of joint, shoulder, left (Chronic) Nail dystrophy (Chronic) Edema (Chronic) Cough (Chronic) Contraindication to deep vein thrombosis (DVT) prophylaxis (Chronic) Tardive dyskinesia (Chronic) Dysarthria (Chronic) Difficulty comprehending speech (Chronic) PVD (peripheral vascular disease) (Chronic) Malaise (Chronic) Low back pain (Chronic) Elevated serum alkaline phosphatase level (Chronic) Peripheral edema (Chronic) Left knee pain (Chronic) History of total left hip replacement (Chronic 11/11/21) Schizoaffective disorder (Chronic) Chronic diarrhea (Chronic) Diarrhea (Chronic 05/15/12) h/o collagenous colitis 2008 on colonoscopy Edentulous (Chronic 10/17/13) 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 MRSA (methicillin resistant staph aureus) culture positive (Chronic 04/04/13) Hyponatremia (Chronic 03/24/94) Abnormal weight loss (Chronic 06/21/12) Hydradenitis (Chronic) in rt upper thigh region Rash (Chronic) Leg swelling (Chronic) Bilateral knee pain (Chronic) Left knee DJD (Chronic) Most recent injection: 04/12/24; 08/30/22; 05/27/2021; 08/18/20; 03/31/2020 Hematuria (Chronic) Thoracic aortic aneurysm (Chronic) 4.[address] from 09/[address] from 10/2021 Lethargy (Chronic) AMS (altered mental status) (Chronic) Depression (Chronic) Hypokalemia (Chronic) Elevated troponin (Chronic) Accidental overdose (Chronic) Hypokalemia (Chronic) Hypomagnesemia (Chronic) Left shoulder pain (Chronic) Right leg pain (Chronic) Schizoaffective disorder (Chronic) DVT prophylaxis (Chronic) Acute CVA (cerebrovascular accident) (Chronic) CVA (cerebral vascular accident) (Chronic) Rash (Chronic) Dry skin (Chronic) Status post right hip replacement (Chronic 08/05/21) Medical History (Updated 09/20/24 @ 13:02 by Cas Henao MD) GERD (gastroesophageal reflux disease) Urge urinary incontinence Osteoarthritis Hypothyroidism Folliculitis Hx of malignant neoplasm of vagina Hx MRSA infection Surgical History (Updated 05/09/24 @ 11:44 by Alona Alvarez) History of hip replacement Colonoscopy - MAC (02/14/17) Colonoscopy - MAC (01/12/11) Social History Smoking/Tobacco Use Status: Current-Occasional Tobacco Type: cigarettes Smoking risk assessment performed?: Yes Alcohol Intake: current Alcohol Intake frequency: holidays/special occasions only Drug use: Never Substance use type: does not use Housing: apartment Current gender identity: female Do you feel safe at home: Yes Do you feel safe in your relationship?: Yes Meds Allergies and Home Medications Allergies Allergy/AdvReac Type Severity Reaction Status Date / Time chlorpheniramine Allergy Unknown Verified 09/20/24 15:08 erythromycin base Allergy Skin Rash Verified 09/20/24 15:08 Penicillins Allergy Rash, Verified 09/20/24 15:08 troubles breathing per pt Home Medications ?Medication ?Instructions ?Recorded ?Confirmed ?Type bupropion HCl 100 mg tablet,12 hr 100 mg PO QAM #30 tabs 04/07/21 09/20/24 Rx sustained-release ascorbate calcium (vitamin C) 500 500 mg PO DAILY 07/15/21 09/20/24 History mg tablet melatonin 3 mg capsule 3 mg PO HS PRN 07/15/21 09/20/24 History Bedside Commode #1 ea 08/03/21 09/19/24 Rx Raised Toilet Seat #1 ea 08/03/21 09/19/24 Rx acetaminophen 500 mg tablet 1,000 mg (2 x 500 mg) PO TID #90 11/11/21 09/20/24 Rx tabs clozapine 200 mg tablet 200 mg PO QHS 09/29/23 09/20/24 History clozapine 50 mg tablet 50 mg PO DAILY 09/29/23 09/20/24 History furosemide 20 mg tablet 20 mg PO DAILY PRN edema #30 tabs 09/29/23 09/20/24 Rx levothyroxine 88 mcg tablet 88 mcg PO DAILY #90 tabs 12/05/23 09/20/24 Rx loratadine 10 mg tablet 10 mg PO DAILY #90 tabs 12/05/23 09/20/24 Rx atorvastatin 40 mg tablet 40 mg PO QPM #90 tabs 02/27/24 09/20/24 Rx famotidine 20 mg tablet 20 mg PO DAILY #90 tabs 04/24/24 09/20/24 Rx clopidogrel 75 mg tablet 75 mg PO DAILY #90 tabs 08/13/24 09/20/24 Rx clozapine 100 mg tablet 100 mg PO ONCE PRN 08/23/24 09/20/24 History Exam Narrative Exam Narrative: alert and restless, able to follow commands, speech unintelligible- produces sounds, protruding tongue movement resembling dyskinesia , protects air ways, clear lungs, regular heart with normal rate, abd in non-distended , soft , non- tender, moves all 4 ext. but restless, limited insight and judgement Results Labs 09/20/24 13:12 09/20/24 13:12 Labs: Laboratory Results - last 24 hr 09/20/24 09/20/24 09/20/24 13:12 13:53 13:54 WBC 5.54 RBC 4.54 Hgb 13.6 Hct 42.3 MCV 93 MCH 30.0 MCHC 32.2 RDW 12.8 Plt Count 268 MPV 10.1 Immature Gran % 0.0 Neutrophils % 59.8 Lymphocytes % 26.7 Monocytes % 9.9 Eosinophils % 2.9 Basophils % 0.7 Nucleated RBC % 0.0 Absolute Neutrophils 3.31 Absolute Lymphocytes 1.48 Absolute Monocytes 0.55 Absolute Eosinophils 0.16 Absolute Basophils 0.04 Sodium 142 Potassium 3.7 Chloride 106 Carbon Dioxide 27.8 Anion Gap 8.2 BUN 23 H Creatinine 0.8 Est GFR (CKD-EPI 2020) 79.22 Glucose 101 Calcium 10.3 H Magnesium 1.8 Total Bilirubin 0.7 AST 25 ALT 31 Alkaline Phosphatase 152 H Ammonia < 10 L Troponin I 8 Total Protein 7.1 Albumin 3.9 TSH 2.36 Salicylates < 2.8 Acetaminophen < 2 Ethyl Alcohol < 3.0 COVID-19 Source Nasopharynx SARS-CoV-2 (PCR) Negative Influenza Type A (PCR) Negative Influenza Type B (PCR) Negative RSV (PCR) Negative 09/20/24 09/20/24 14:33 16:01 WBC RBC Hgb Hct MCV MCH MCHC RDW Plt Count MPV Immature Gran % Neutrophils % Lymphocytes % Monocytes % Eosinophils % Basophils % Nucleated RBC % Absolute Neutrophils Absolute Lymphocytes Absolute Monocytes Absolute Eosinophils Absolute Basophils Sodium Potassium Chloride Carbon Dioxide Anion Gap BUN Creatinine Est GFR (CKD-EPI 2020) Glucose Calcium Magnesium Total Bilirubin AST ALT Alkaline Phosphatase Ammonia Troponin I 8 Cancelled Total Protein Albumin TSH Salicylates Acetaminophen Ethyl Alcohol COVID-19 Source SARS-CoV-2 (PCR) Influenza Type A (PCR) Influenza Type B (PCR) RSV (PCR) Last Vital Signs Pulse 57 L 09/20/24 14:17 Resp 16 09/20/24 14:50 BP 156/50 H 09/20/24 14:17 Pulse Ox 98 09/20/24 14:17 Time Spent Time spent with Patient: >75 minutes Time was spent: preparing to see the patient(eg.review tests), obtaining and/or reviewing separately otained hiistory, ordering medications,tests, procedures, referring, communicating with other health animal caretaker, indepentently interpreting results, counseling the patient and care coordination
[2024-09-20] MEDS: Aspirin 300 MG SUPP PR (15:27)
[2024-09-20 16:07] LABS: Calculated LDL 82 mg/dL (<100); Cholesterol 156 mg/dL (<200); HDL Cholesterol 59 mg/dL (>or=50); Triglyceride 76 mg/dL (<150)
[2024-09-20 16:16] LABS: Hemoglobin A1C 5.5 % (<5.7)
[2024-09-20] MEDS: LORazepam 20 MG/10 ML VIAL IVP (18:07)
--- NOTE | 2024-09-20 18:52 | W.PC.ACHO ---
Registration Status: Primary Language: Preferred Language: ED Information & Data Chief Complaint CVA/TIA 09/20/24 14:50 Chief Complaint CVA/TIA 09/20/24 13:02 Triage Note [facility] found patient with AMS, 09/20/24 12:55 aphasia. EMS states patient was able to stand and has a hx of CVA a few years ago. BGL 122. lives alone, unsure of last known well Medical / Surgical History (Last Updated 05/09/24 @ 11:44 by Alona Alvarez) GERD (gastroesophageal reflux disease) Urge urinary incontinence Osteoarthritis Hypothyroidism Folliculitis Hx of malignant neoplasm of vagina Hx MRSA infection (Last Reviewed 04/15/24 @ 06:52 by González Barber MD) History of hip replacement Colonoscopy - MAC (02/14/17) Colonoscopy - MAC (01/12/11) Most Recent Vital Signs Pulse 54 L 09/20/24 15:17 Pulse 54 L 09/20/24 15:17 Respiratory Rate 14 09/20/24 15:17 Respiratory Effort Normal 09/20/24 14:50 Respiratory Depth Normal 09/20/24 14:50 Respiratory Pattern Normal 09/20/24 14:50 Blood Pressure 107/41 L 09/20/24 15:17 Blood Pressure Mean 67 09/20/24 15:17 Pulse Oximetry 99 09/20/24 15:17 Oxygen Delivery Method Room Air 09/20/24 12:55 Oxygen Flow Rate 0 09/20/24 12:55 Allergies chlorpheniramine Allergy (Verified 09/20/24 15:08) Unknown erythromycin base Allergy (Verified 09/20/24 15:08) Skin Rash Penicillins Allergy (Verified 09/20/24 15:08) Rash, troubles breathing per pt Precautions Isolation Standard precaution 09/20/24 14:50 Active Medications Generic Name Dose Route Start Last Admin Trade Name Freq PRN Reason Stop Dose Admin Clozapine 200 mg 09/20/24 18:00 09/20/24 18:13 Clozapine 100 Mg Tab PO 200 mg QPM YENNY Administration IV IV Catheter Type [Left Saline Lock Antecubital] IV Catheter Type [Right Saline Lock Forearm] IV Catheter Type [Right Peripheral IV Antecubital] IV Catheter Gauge [Left 18 Antecubital] IV Catheter Gauge [Right 18 Forearm] IV Catheter Gauge [Right 18 Antecubital] Diet Orders Category Date Time Status Diabetes Consistent CHO/Heart Healthy [DIET] Nutrition 09/20/24 Dinner Active Diagnostics 09/20/24 09/20/24 09/20/24 Range/Units 16:01 14:33 13:54 WBC (4.4-10.8) 10^3/uL RBC (3.93-5.22) 10^6/uL Hgb (11.2-15.7) g/dL Hct (36.0-46.0) % MCV (80-95) fL MCH (27.0-33.0) pg MCHC (32.0-36.0) % RDW (11.7-14.6) % Plt Count (130-400) 10^3/uL MPV (8.0-11.0) fL Immature Gran % % Neutrophils % % Lymphocytes % % Monocytes % % Eosinophils % % Basophils % % Nucleated RBC % (0.0-0.3) % Absolute Neutrophils (1.2-6.7) 10^3/uL Absolute Lymphocytes (1.2-3.4) 10^3/uL Absolute Monocytes (0.1-0.8) 10^3/uL Absolute Eosinophils (0.0-0.7) 10^3/uL Absolute Basophils (0.0-0.2) 10^3/uL Sodium (136-145) mmol/L Potassium (3.5-5.1) mmol/L Chloride (98-107) mmol/L Carbon Dioxide (21.0-32.0) mmol/L Anion Gap (3-11) mmol/L BUN (7-18) mg/dL Creatinine (0.55-1.02) mg/dL Est GFR (CKD-EPI 2020) (mL/min/1.73m2) Glucose (74-106) mg/dL Hemoglobin A1c (<5.7) % Calcium (8.5-10.1) mg/dL Magnesium (1.8-2.4) mg/dL Total Bilirubin (0.2-1.0) mg/dL AST (15-37) U/L ALT (14-59) U/L Alkaline Phosphatase (46-116) U/L Ammonia < 10 L (11-32) umol/L Troponin I Cancelled 8 (<or=51) ng/L Total Protein (6.4-8.2) g/dL Albumin (3.4-5.0) g/dL Triglycerides (<150) mg/dL Total Cholesterol (<200) mg/dL LDL Cholesterol, Calc (<100) mg/dL HDL Cholesterol (>or=50) mg/dL TSH (0.36-3.74) uIU/mL Salicylates (<2.8) mg/dL Acetaminophen (10-30) ug/mL Ethyl Alcohol (<10) mg/dL COVID-19 Source SARS-CoV-2 (PCR) (Negative) Influenza Type A (PCR) (Negative) Influenza Type B (PCR) (Negative) RSV (PCR) (Negative) 09/20/24 09/20/24 Range/Units 13:53 13:12 WBC 5.54 (4.4-10.8) 10^3/uL RBC 4.54 (3.93-5.22) 10^6/uL Hgb 13.6 (11.2-15.7) g/dL Hct 42.3 (36.0-46.0) % MCV 93 (80-95) fL MCH 30.0 (27.0-33.0) pg MCHC 32.2 (32.0-36.0) % RDW 12.8 (11.7-14.6) % Plt Count 268 (130-400) 10^3/uL MPV 10.1 (8.0-11.0) fL Immature Gran % 0.0 % Neutrophils % 59.8 % Lymphocytes % 26.7 % Monocytes % 9.9 % Eosinophils % 2.9 % Basophils % 0.7 % Nucleated RBC % 0.0 (0.0-0.3) % Absolute Neutrophils 3.31 (1.2-6.7) 10^3/uL Absolute Lymphocytes 1.48 (1.2-3.4) 10^3/uL Absolute Monocytes 0.55 (0.1-0.8) 10^3/uL Absolute Eosinophils 0.16 (0.0-0.7) 10^3/uL Absolute Basophils 0.04 (0.0-0.2) 10^3/uL Sodium 142 (136-145) mmol/L Potassium 3.7 (3.5-5.1) mmol/L Chloride 106 (98-107) mmol/L Carbon Dioxide 27.8 (21.0-32.0) mmol/L Anion Gap 8.2 (3-11) mmol/L BUN 23 H (7-18) mg/dL Creatinine 0.8 (0.55-1.02) mg/dL Est GFR (CKD-EPI 2020) 79.22 (mL/min/1.73m2) Glucose 101 (74-106) mg/dL Hemoglobin A1c 5.5 (<5.7) % Calcium 10.3 H (8.5-10.1) mg/dL Magnesium 1.8 (1.8-2.4) mg/dL Total Bilirubin 0.7 (0.2-1.0) mg/dL AST 25 (15-37) U/L ALT 31 (14-59) U/L Alkaline Phosphatase 152 H (46-116) U/L Ammonia (11-32) umol/L Troponin I 8 (<or=51) ng/L Total Protein 7.1 (6.4-8.2) g/dL Albumin 3.9 (3.4-5.0) g/dL Triglycerides 76 (<150) mg/dL Total Cholesterol 156 (<200) mg/dL LDL Cholesterol, Calc 82 (<100) mg/dL HDL Cholesterol 59 H (>or=50) mg/dL TSH 2.36 (0.36-3.74) uIU/mL Salicylates < 2.8 (<2.8) mg/dL Acetaminophen < 2 (10-30) ug/mL Ethyl Alcohol < 3.0 (<10) mg/dL COVID-19 Source Nasopharynx SARS-CoV-2 (PCR) Negative (Negative) Influenza Type A (PCR) Negative (Negative) Influenza Type B (PCR) Negative (Negative) RSV (PCR) Negative (Negative) [id number] Documentation Fingerstick Glucose Start: 09/20/24 13:00 Freq: Status: Active Protocol: Activity Type Activity Date Activity User E-sign Co-sign Detail Recorded Client Recorded Date Recorded By Document 09/20/24 12:59 BKG DAEMON(3) [id number] 09/20/24 13:00 BKG DAEMON(4) Intake and Output - 24 Hour Total 09/20/24 12:49 thru 09/20/24 15:31 Intake Total 510 Balance 510 Weight 68.6 kg Intake: IV 510 Falls Risk Assessment History of Falls No History 09/20/24 14:50 Contributing Factors No Factors,Impairments 09/20/24 14:50 Ambulatory Aids Independent 09/20/24 14:50 Tubes/Lines None 09/20/24 14:50 Gait Evaluation W/no contributing factors 09/20/24 14:50 Cognition Cognitive impairment 09/20/24 14:50 Fall Total Score 28 09/20/24 14:50 Level of Risk Moderate Risk 09/20/24 14:50 Problems (Last Updated 05/09/24 @ 11:44 by Alona Alvarez) Acute encephalopathy (Acute) Arthritis of left shoulder region (Chronic) Tardive dyskinesia (Chronic) Acute CVA (cerebrovascular accident) (Chronic) v v v v v v v v v Sending and/or Receiving Nurses: Please use comment section below to note any information pertinent to the patient hand-off not included above. Information / Comments: on arrival pt was nonverbal, did not follow instruction. VSS, did not appear in distress. Full range of motion. HR regular, S1-S2, lungs are clear. Bedside swallow evaluation completed and normal. telemetry started - ST in low 100. 1:1 sitter for safety. Report received from:
[2024-09-20] MEDS: Enoxaparin 40 MG/0.4 ML SYR SC (21:47)
[2024-09-20] MEDS: Normal Saline Flush 10 ML SYR IVP (21:49)
--- NOTE | 2024-09-20 23:16 | NUR.NOTE ---
Opened chart to see if Pt had Q15 observation. Pt does not Nursing Note:
[2024-09-21 04:57] VITALS: PULSE 73
[2024-09-21] MEDS: Levothyroxine 88 MCG TAB PO (05:33)
[2024-09-21 07:34] LABS: Abs Immature Grans 0.02 10^3/uL (0.0-0.06); Absolute Basophil Count 0.04 10^3/uL (0.0-0.2); Absolute Eosinophil Count 0.05 10^3/uL (0.0-0.7); Absolute Lymphocyte Count 1.42 10^3/uL (1.2-3.4); Absolute Monocyte Count 0.51 10^3/uL (0.1-0.8); Absolute Neutrophil Count 5.05 10^3/uL (1.2-6.7); Basophils % 0.6 %; Eosinophils % 0.7 %; HCT 40.9 % (36.0-46.0); HGB 13.3 g/dL (11.2-15.7); Immature Grans % 0.3 %; MCH 30.2 pg (27.0-33.0); MCHC 32.5 % (32.0-36.0); MCV 93 fL (80-95); MPV 10.2 fL (8.0-11.0); Monocytes % 7.2 %; Neutrophils % 71.2 %; Platelet Count 232 10^3/uL (130-400); RDW 12.8 % (11.7-14.6); RDW-SD 43.8 fL; WBC 7.09 10^3/uL (4.4-10.8)
[2024-09-21 07:51] LABS: ALT 25 U/L (14-59); AST 21 U/L (15-37); Albumin 3.4 g/dL (3.4-5.0); Alkaline Phosphatase 135 U/L (46-116); Anion Gap 8.1 mmol/L (3-11); BUN 22 mg/dL (7-18); Bilirubin, Total 0.5 mg/dL (0.2-1.0); CO2 26.9 mmol/L (21.0-32.0); CREATININE 0.7 mg/dL (0.55-1.02); Calcium 9.4 mg/dL (8.5-10.1); Chloride 108 mmol/L (98-107); Estimated GFR 92.98 (mL/min/1.73m2); Glucose 89 mg/dL (74-106); Potassium 3.3 mmol/L (3.5-5.1); Sodium 143 mmol/L (136-145); Total Protein 6.4 g/dL (6.4-8.2)
[2024-09-21 08:31] VITALS: BP 145/94; PULSE 93; RESP 15; TEMP 36.7; O2SAT 97
[2024-09-21] MEDS: Clopidogrel 75 MG TAB PO (08:35)
[2024-09-21] MEDS: Loratidine 10 MG TAB PO (08:35)
[2024-09-21] MEDS: Famotidine 20 MG TAB 10 MG PO (08:35)
[2024-09-21] MEDS: buPROPion-CR 100 MG TABCR PO (08:41)
[2024-09-21] MEDS: Normal Saline Flush 10 ML SYR IVP ×2 (08:45→20:17)
--- NOTE | 2024-09-21 08:56 | PGE_ITS ---
Date of Service Date of service: 09/21/24 Time of Service: 08:56 Assessment and Plan Assessment and plan (1) Acute encephalopathy: Status: Acute Assessment and plan: Altered speech,weakness but non-focal- Ongoing CVA/TIA workup Head CT negative MRI pending- was negative but restless - will give a small dose of lorazepam and resume her home meds- most likely not compliant as per previous history A1C - lipids On home plavix ASA VT in ED Neuro consult completed in the ED: Dr. De Jesus from neurology at [facility]. She advised 324 mg aspirin and hospitalization for MRI telemetry Echo with bubble Conclusion Normal left ventricular chamber size and systolic function. EF is 60%. Wall motion is normal Normal right ventricular size and function Both atria are normal in size No intracardiac shunting is identified with injection of agitated saline There are no structural or hemodynamically significant valvular abnormalities workup will rule out infectious etiology UA negative No sepsis criteria on admission Psych consult (2) Acute CVA (cerebrovascular accident): Status: Chronic Assessment and plan: History of CVA and as above Lovenox for DVT prophylaxis (3) Arthritis of left shoulder region: Status: Chronic Assessment and plan: continue outpatient management (4) Tardive dyskinesia: Status: Chronic Assessment and plan: History of will continue home meds Psych consult discussed with Dr. Ramirez (5) Urinary retention: Status: Acute Assessment and plan: Bladder scan and PRN intermittent cath discussed with Dr. Ramirez Subjective Subjective Patient reports: no new complaints, tolerating liquids well and tolerating a regular diet; denies diarrhea, vomiting, shortness of breath or fever Exam Narrative Exam Narrative: alert and less restless, able to follow commands, speech unintelligible- produces words , decreased protruding tongue movement resembling dyskinesia , clear lungs, regular heart with normal rate, abd in non-distended , soft , non- tender, moves all 4 ext. but restless, limited insight and judgement Objective Last Vital Signs Temp 36.7 C 09/21/24 08:31 Pulse 93 H 09/21/24 08:31 Resp 15 09/21/24 08:31 BP 145/94 H 09/21/24 08:31 Pulse Ox 97 09/21/24 08:31 Laboratory Results - last 24 hr 09/20/24 09/20/24 09/20/24 13:12 13:53 13:54 WBC 5.54 RBC 4.54 Hgb 13.6 Hct 42.3 MCV 93 MCH 30.0 MCHC 32.2 RDW 12.8 Plt Count 268 MPV 10.1 Immature Gran % 0.0 Neutrophils % 59.8 Lymphocytes % 26.7 Monocytes % 9.9 Eosinophils % 2.9 Basophils % 0.7 Nucleated RBC % 0.0 Absolute Neutrophils 3.31 Absolute Lymphocytes 1.48 Absolute Monocytes 0.55 Absolute Eosinophils 0.16 Absolute Basophils 0.04 Sodium 142 Potassium 3.7 Chloride 106 Carbon Dioxide 27.8 Anion Gap 8.2 BUN 23 H Creatinine 0.8 Est GFR (CKD-EPI 2020) 79.22 Glucose 101 Hemoglobin A1c 5.5 Calcium 10.3 H Magnesium 1.8 Total Bilirubin 0.7 AST 25 ALT 31 Alkaline Phosphatase 152 H Ammonia < 10 L Troponin I 8 Total Protein 7.1 Albumin 3.9 Triglycerides 76 Total Cholesterol 156 LDL Cholesterol, Calc 82 HDL Cholesterol 59 H TSH 2.36 Salicylates < 2.8 Acetaminophen < 2 Ethyl Alcohol < 3.0 COVID-19 Source Nasopharynx SARS-CoV-2 (PCR) Negative Influenza Type A (PCR) Negative Influenza Type B (PCR) Negative RSV (PCR) Negative 09/20/24 09/20/24 09/21/24 14:33 16:01 07:24 WBC 7.09 RBC 4.40 Hgb 13.3 Hct 40.9 MCV 93 MCH 30.2 MCHC 32.5 RDW 12.8 Plt Count 232 MPV 10.2 Immature Gran % 0.3 Neutrophils % 71.2 Lymphocytes % 20.0 Monocytes % 7.2 Eosinophils % 0.7 Basophils % 0.6 Nucleated RBC % 0.0 Absolute Neutrophils 5.05 Absolute Lymphocytes 1.42 Absolute Monocytes 0.51 Absolute Eosinophils 0.05 Absolute Basophils 0.04 Sodium 143 Potassium 3.3 L Chloride 108 H Carbon Dioxide 26.9 Anion Gap 8.1 BUN 22 H Creatinine 0.7 Est GFR (CKD-EPI 2020) 92.98 Glucose 89 Hemoglobin A1c Calcium 9.4 Magnesium Total Bilirubin 0.5 AST 21 ALT 25 Alkaline Phosphatase 135 H Ammonia Troponin I 8 Cancelled Total Protein 6.4 Albumin 3.4 Triglycerides Total Cholesterol LDL Cholesterol, Calc HDL Cholesterol TSH Salicylates Acetaminophen Ethyl Alcohol COVID-19 Source SARS-CoV-2 (PCR) Influenza Type A (PCR) Influenza Type B (PCR) RSV (PCR) Time Spent with Patient Time Spent with Patient: >50 minutes Time was spent: preparing to see the patient(eg.review tests), obtaining and/or reviewing separately otained hiistory, ordering medications,tests, procedures, referring, communicating with other health child adolescent care, indepentently interpreting results, counseling the patient and care coordination
--- NOTE | 2024-09-21 09:38 | INITIAL_ITS ---
Date of service: 09/21/24 Time of Service: 09:38 Care Management Initial Assmt Initial Assessment Reason for Hospitalization: AMS, TIA/CVA Functional Status/Living Situation Patient Presentation: Yaima is awake and lying in bed when CM met with her. She is non-verbal and unable to engage in conversation. 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 She has a sister who is supportive, but does not live nearby. Yaima is on moderate needs and receives community support with medication management being a known need. She has services through [facility] and [facility] [facility], in addition to care planning by [facility] at her PCP office for being a complex Adult/[facility]O member. Last August Yaima came to the hospital with a similar presentation which per report was most likely from inconsistently taking her psychiatric medicines at home. CM connected with her community supports to discuss medication management in the community and identified that medication management (if any) is being done by the homemaker, per [facility] [facility]. CM requested a meeting with Yaima's community team members to clarify current services being received and limitations within the community. In the meantime, Yaima continues to he closely monitored and home medications have been restarted. CM will continue to follow and support discharge planning needs which is largely dependent on her progress. Town of Residence: [facility] Resides with: Alone Significant Other/Family: Out of area Natural Supports: Yaima's sister in law, Lori Tipton ([phone]) Medications Medication Management: Issues/Barriers (Yaima is inconsistent with psychiatric medicines at home) Advance Directives Advance Directives: Do you have an Advance Directive: Y 04/14/21 15:20 AD On File at [facility]: Y 04/14/21 15:20 Date Asked 07/25/24 07/25/24 13:34 AD Date Reviewed 09/20/24 09/20/24 13:47 COLST On File at [facility] No 08/14/22 13:52 COLST Date Scanned Comment: HCA on file; HCA listed is Yaima's sister. Code Status Resuscitation Status Full Code Portal Pt does not currently have a portal and education provided: Yes Insurance Coverage/Financial Issues Insurance: Medicare Part A & B - [id number] FINANCIAL ASST 100 - [id number] Care Team Visit Care Team Role Provider Type Yessi Pka APRN MD [facility] STAFF PHYSICIAN Dillon Scott MD Primary Care Provider [facility] STAFF PHYSICIAN InPatient Ernie James Other Providers OTHER Cas Henao MD Emergency Provider [facility] STAFF PHYSICIAN Cas Ramirez Admit Provider [facility] STAFF PHYSICIAN Attending Provider Other: [facility] Care Team Members: DA ([facility]), [facility], Patient Care Coordinators and Community Health Worker. Does not have services through [facility], per Wei. Discharge Potential Discharge Needs: PCP F/U Appt and Other (Follow up with community care team) Anticipated Barriers to Discharge: None Identified Patient/Family Education Needs: Review discharge instructions, discuss Ask Me Three Transportation: RCT Plan: Yaima is admitted with AMS requiring TIA/Stroke work up. She is acutely encephalopatic and with altered speech and unable to fully participate in physical therapy due to being unable to follow cues; her D/C plan will be dependent on progress made. PT recommends SNF for STR, if her functional status does not improve after resumption of her medication regimen as it did back in August of 2023. CM will continue to follow. Social Determinants of Health Screening Will the Patient Participate in the Screening?: Unable to obtain [facility] All Active Problems (Updated 05/09/24 @ 11:44 by Alona Alvarez) Acute encephalopathy (Acute) Arthritis of left shoulder region (Chronic) DEPO MEDROL 07/12/24 Other bursal cyst, left shoulder (Chronic) Swelling of joint, shoulder, left (Chronic) Nail dystrophy (Chronic) Edema (Chronic) Cough (Chronic) Contraindication to deep vein thrombosis (DVT) prophylaxis (Chronic) Tardive dyskinesia (Chronic) Dysarthria (Chronic) Difficulty comprehending speech (Chronic) PVD (peripheral vascular disease) (Chronic) Malaise (Chronic) Low back pain (Chronic) Elevated serum alkaline phosphatase level (Chronic) Peripheral edema (Chronic) Left knee pain (Chronic) History of total left hip replacement (Chronic 11/11/21) Schizoaffective disorder (Chronic) Chronic diarrhea (Chronic) Diarrhea (Chronic 05/15/12) h/o collagenous colitis 2008 on colonoscopy Edentulous (Chronic 10/17/13) 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 MRSA (methicillin resistant staph aureus) culture positive (Chronic 04/04/13) Hyponatremia (Chronic 03/24/94) Abnormal weight loss (Chronic 06/21/12) Hydradenitis (Chronic) in rt upper thigh region Rash (Chronic) Leg swelling (Chronic) Bilateral knee pain (Chronic) Left knee DJD (Chronic) Most recent injection: 04/12/24; 08/30/22; 05/27/2021; 08/18/20; 03/31/2020 Hematuria (Chronic) Thoracic aortic aneurysm (Chronic) 4.[address] from 09/[address] from 10/2021 Lethargy (Chronic) AMS (altered mental status) (Chronic) Depression (Chronic) Hypokalemia (Chronic) Elevated troponin (Chronic) Accidental overdose (Chronic) Hypokalemia (Chronic) Hypomagnesemia (Chronic) Left shoulder pain (Chronic) Right leg pain (Chronic) Schizoaffective disorder (Chronic) DVT prophylaxis (Chronic) Acute CVA (cerebrovascular accident) (Chronic) CVA (cerebral vascular accident) (Chronic) Rash (Chronic) Dry skin (Chronic) Status post right hip replacement (Chronic 08/05/21) Medical History (Updated 09/20/24 @ 13:02 by Cas Henao MD) GERD (gastroesophageal reflux disease) Urge urinary incontinence Osteoarthritis Hypothyroidism Folliculitis Hx of malignant neoplasm of vagina Hx MRSA infection Surgical History (Updated 05/09/24 @ 11:44 by Alona Alvarez) History of hip replacement Colonoscopy - MAC (02/14/17) Colonoscopy - MAC (01/12/11) Social History Smoking/Tobacco Use Status: Current-Occasional Tobacco Type: cigarettes Smoking risk assessment performed?: Yes Alcohol Intake: current Alcohol Intake frequency: holidays/special occasions only Drug use: Never Substance use type: does not use Housing: apartment Current gender identity: female Do you feel safe at home: Yes Do you feel safe in your relationship?: Yes
[2024-09-21 10:05] LABS: Bilirubin Negative (Negative); Blood Negative (Negative); Clarity Clear (Clear); Glucose Negative (Negative); Ketones 15 mg/dL (Negative); Leukocyte Esterase Negative (Negative); Nitrite Negative (Negative)
--- NOTE | 2024-09-21 10:10 | PT.INIE ---
PT Notes Visit Reasons: TIA/ stroke, AMS Inpatient Physical Therapy Evaluation Date: 09/21/24 Referring Doctor: Yessi Pak PT Orders: PT CONSULT: Eval for AD Precautions: Tardive Dyskinesia, non-verbal at this time Patient Profile/Admitting Diagnosis: possible TIA/stroke, AMS Social History/Home Situation: per nursing - pt lives alone, does have nursing come in about once per week, has friends in community Current Functional Limitations: unknown Equipment Owned/DME: unknown Subjective: Pt is unable to describe her home situation. 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 Assessment: Pt was difficult to evaluate today as she had a very difficult time following commands. Her baseline and living situation is mostly unknown which also makes discharge planning difficult. She was able to get in and out of bed with mod assist, and stand up with min assist. Assistance mostly was required to help with her following commands. She did not understand enough to walk any significant distance but based on the way she was moving, she would likely not have difficulty with this if she wanted to walk. We will wait and determine a discharge plan once we see how her medication effects her. Patient is assessed as a Moderate 94948 complexity based on the following: History: Moderate Examination: Moderate Presentation: Moderate Decision Making: Moderate Goals: Goals X1 week 1. Supine-Sit w/SBA 2. Sit-Supine w/SBA 3. Sit-Stand w/SBA 4. Stand-Sit w/SBA 5. Gait - ambulate 50 ft w/RW and SBA 6. Stairs - ascend and descend 5 steps w/bilat UE support and CGA Plan of Care/Treatment Plan: 1-2x/day, 7 days/week x 1 week. Plan of care has been reviewed with the [facility] providing the service under Physical Therapy direction. Initiate Physical Therapy intervention for strengthening, bed mobility, transfers, gait, stairs, balance training, use of assistive device. DISCHARGE RECOMMENDATIONS: Currently will need rehab if she continues to show her current functional limitations but if her medications effects her like it has in the past she will likely be back to her baseline and not require further services. TREATMENT CODE/TIME: Kendra guido x1 - [id number] (25 min)
--- NOTE | 2024-09-21 12:03 | PHA.REVIEW2 ---
Pharmacy Admission Review Admission Clinical Review Admission Pharmacy Review: Acute encephalopathy (Acute) chlorpheniramine Allergy (Verified 09/20/24 15:08) Unknown erythromycin base Allergy (Verified 09/20/24 15:08) Skin Rash Penicillins Allergy (Verified 09/20/24 15:08) Rash, troubles breathing per pt Resuscitation Status Full Code Height 5 ft Weight 68.6 kg Pharmacy Admission Review Renal Dosing Renal Dosing: BUN 22 mg/dL (7-18) H 09/21/24 07:24 Creatinine 0.7 mg/dL (0.55-1.02) 09/21/24 07:24 Medications needing adjustments: Intervened (CrCl 45.23 mL/min, BUN decreased from 23) List of meds needing interventions: Changed famotidine from 20mg daily to 10mg daily due to CrCl < 60 Anticoagulation Anticoagulation: Hgb 13.3 g/dL (11.2-15.7) 09/21/24 07:24 Hct 40.9 % (36.0-46.0) 09/21/24 07:24 Plt Count 232 10^3/uL (130-400) 09/21/24 07:24 Creatinine 0.7 mg/dL (0.55-1.02) 09/21/24 07:24 DVT Prophylaxis: Reviewed Medications: Enoxaparin (40mg daily) Relevant Labs Relevant Labs: Sodium 143 mmol/L (136-145) 09/21/24 07:24 Potassium 3.3 mmol/L (3.5-5.1) L 09/21/24 07:24 Chloride 108 mmol/L (98-107) H 09/21/24 07:24 Magnesium 1.8 mg/dL (1.8-2.4) 09/20/24 13:12 Electrolytes, C-Reactive P, ESR: Reviewed Cardiac Review Cardiac Review: Troponin I Cancelled 09/20/24 16:01 BP, HR, EF%: Reviewed (BP 145/94, HR 93) List meds needing interventions: Has order for furosemide 20mg daily as needed QTc Review QTc: Reviewed (426 from 09/20) IV to PO Switch IV Medications: Reviewed Home Meds Home Med List reviewed: Intervened Relevent Home Meds Not ordered & why?: Patient had clozapine on home med list as 200mg HS and 50mg daily with 100mg daily PRN. Called Ike in [facility] to confirm dose as I could only see fill history for 100mg daily. Per Ike patient takes 100mg daily at bedtime. I updated home med list and reached out to provider. Orders for 200mg and 50mg were discontinued and order for 100mg HS was added. Current Meds Current Medication Order Review: Reviewed
--- NOTE | 2024-09-21 12:55 | CHAPLAIN ---
I remembered Yaima from a previous admission. I'm not sure if she remembered me. She was restless and moving around a lot in bed. At times it looked like she was going to speak, but she didn't She make expressions in reaction to my questions and comments, but I didn't understand what she was trying to express. I tried to reassure her that she's in a safe place.
[2024-09-21] MEDS: Lactated Ringers 1,000 ML 100 ML IV (15:07)
[2024-09-21] MEDS: POTASSIUM CHLORIDE 20 MEQ/100 ML BAG 50 MEQ IV_INF ×2 (15:07→17:28)
[2024-09-21] MEDS: Potassium Chloride 20 MEQ TABCR 40 MEQ PO (15:15)
--- NOTE | 2024-09-21 15:43 | DI.US_ITS ---
APPROVED REPORT EXAM: Comprehensive 2D, Doppler, and color-flow Echocardiogram Patient Location: In-Patient Room/Bed: [address] [employer] Instructor: Wei Pisano RDCS (AE) Indications: CVA Echo Enhancing Agent Indication: Rule out Shunt Agent(s) / Amount(s) Used: Agitated Saline 10.0 cc Comments: Contrast study was performed with 1 IV injection of 10ccs of agitated normal saline at rest . Patient was unable to cooperate with maneuvers. Negative contrast study for shunt flow. Other Information Study Quality: Adequate. Technically limited study due to uncooperative patient, inability to positio n patient. Conclusion Normal left ventricular chamber size and systolic function. EF is 60%. Wall motion is normal Normal right ventricular size and function Both atria are normal in size No intracardiac shunting is identified with injection of agitated saline There are no structural or hemodynamically significant valvular abnormalities Wall motion Left Ventricle The left ventricle is grossly normal size. The left ventricular systolic function is normal. The left ventricular ejection fraction is within the normal range. There is normal LV segmental wall motion. There is no ventricular septal defect visualized. LVEF is 60%. Right Ventricle The right ventricle is normal size. Right ventricular systolic function is grossly normal. Atria The left atrium size is normal. The right atrium size is normal. Saline bubble contrast intravenous i njection does not demonstrate PFO. Aortic Valve The aortic valve is normal in structure. Aortic valve is trileaflet. There is no aortic valvular sten osis. No aortic regurgitation is present. Mitral Valve The mitral valve is normal in structure. No evidence of mitral valve stenosis. Trace mitral regurgita tion. Tricuspid Valve The tricuspid valve is normal in structure. There is no tricuspid valve stenosis. Trace tricuspid reg urgitation. Pulmonic Valve The pulmonary valve is normal in structure. There is no pulmonic valvular stenosis. There is no pulmo lani valvular regurgitation. Great Vessels The aortic root is normal in size. The ascending aorta is normal in size. IVC is normal in size and c ollapses >50% with inspiration. Pericardium There is no pericardial effusion. 2D Dimensions Ao Root d 2.98 cm F: 2.7 - 3.3 Ao Asc Diam d 3.39 cm F: 2.3 - 3.1 M-Mode TAPSE 1.80 cm (M/F) >1.7 Auto EF LV EDV A4C 99.1 mL LV EDV A2C 130.1 mL LV EDV BP LV ESV A4C 41.4 mL LV ESV A2C 48.7 mL LV ESV BP LVEF(%) A4C 58.2 % LVEF(%) A2C 62.5 % LVEF(%) BP LV SV A4C 57.7 ml LV SV A2C 81.3 ml LV SV BP LV CO A4C 5.0 L/min LV CO A2C 6.4 L/min LV CO BP HR A4C 87.38 BPM HR A2C 78.60 BPM LV EDV Index (BP) LA Volume LA Length A4C 4.0 cm LA Length A2C LA Area A4C s 7.26 cm2 LA Area A2C s LA Vol A4C A-L 11.26 mL LA Vol A2C A-L LA Vol Biplane A-L LA Vol A4C MOD 10.5 mL LA Vol A2C MOD LA Vol BP MOD RA Volume RA Area A4C 6.6 cm2 RA ESV A4C (A-L) 9.8mL RA Vol/BSA A4C A-L RA Length A4C 3.8 cm RA ESV A4C (MOD) 9.4mL LV Diastology MV E' medial 0.092 (>0.07 m/s) MV E Vmax 0.82 (0.4-1.3 m/s) MV E/E' MED 8.88 (<14) MV A Vmax 0.90 (0.4-1.3 m/s) MV E' lateral 0.092 (>0.1 m/s) E/A Ratio 0.9 MV E/E' LAT 8.88 (<14) MV E' Average 0.092 m/s MV E/E'(average) 8.88 Aortic Valve AoV Vmax 1.31 m/s LVOT Vmax 1.19 m/s AoV Peak Grad 6.9 mmHg LVOT Peak Grad 5.6 mmHg AoV Area (Vmax) 3.17 cm2 LVOT VTI 0.235 m AoV VTI 0.294 m LVOT Mean Grad 2.8 mmHg AoV Mean Xavier. 0.90 m/s LVOT SV 82.15 mL AoV Mean Grad 3.7 mmHg LVOT Diam s 2.10 cm AoV Area (VTI) 2.79 cm2 AV Regurg Peak Gr. 6.86 mmHg Velocity Ratio 0.91 Pulmonary Valve PV Vmax 1.00 (0.5-1.5 m/s) RVOT Vmax 0.77 m/s PV Peak Grad 4.0 mmHg RVOT Peak Gr. 2.4 mmHg PV Mean Xavier 0.73 m/s RVOT VTI 0.196 m PV Mean Grad 2.4 mmHg RVOT Mean Gr. 1.4 mmHg
[2024-09-21 18:43] VITALS: BP 137/82; PULSE 81; RESP 16; TEMP 36.1; O2SAT 97
[2024-09-21] MEDS: Acetaminophen 500 MG TAB 1000 MG PO (20:17)
[2024-09-21] MEDS: Enoxaparin 40 MG/0.4 ML SYR SC (20:18)
[2024-09-21] MEDS: Atorvastatin 40 MG TAB PO (20:18)
[2024-09-22] MEDS: Lactated Ringers 1,000 ML 100 ML IV (01:07)
[2024-09-22] MEDS: Levothyroxine 88 MCG TAB PO (06:07)
[2024-09-22 06:47] LABS: Anion Gap 7.9 mmol/L (3-11); BUN 13 mg/dL (7-18); CO2 26.1 mmol/L (21.0-32.0); CREATININE 0.6 mg/dL (0.55-1.02); Calcium 9.6 mg/dL (8.5-10.1); Chloride 109 mmol/L (98-107); Glucose 80 mg/dL (74-106); Potassium 3.8 mmol/L (3.5-5.1); Sodium 143 mmol/L (136-145)
[2024-09-22 07:40] VITALS: BP 138/92; PULSE 72; RESP 15; TEMP 36.7; O2SAT 98
[2024-09-22] MEDS: Acetaminophen 500 MG TAB 1000 MG PO ×2 (08:15→20:20)
[2024-09-22] MEDS: buPROPion-CR 100 MG TABCR PO (08:15)
[2024-09-22] MEDS: Ascorbic Acid 500 MG TAB PO (08:15)
[2024-09-22] MEDS: Clopidogrel 75 MG TAB PO (08:16)
[2024-09-22] MEDS: Normal Saline Flush 10 ML SYR IVP ×2 (08:16→20:20)
[2024-09-22] MEDS: Famotidine 20 MG TAB 10 MG PO (08:16)
[2024-09-22] MEDS: Loratidine 10 MG TAB PO (08:16)
--- NOTE | 2024-09-22 14:12 | PTTR_ITS ---
PT Notes Visit Reasons: TIA/ stroke, AMS Inpatient Physical Therapy Treatment Note [facility] Date: 09/22/2024 PRECAUTIONS: Fall risk, IV access left upper extremity, expressive and receptive aphasia SUBJECTIVE: Patient with garbled speech intermittently also mouthing at times without localization OBJECTIVE: Patient presented seated in chair appearing restless and uncomfortable frequently holding abdomen lifting knees. Patient with significant tardive dyskinesia status post left upper extremity with IV support board in place with bandage.. ? PAIN: Unable to express VITALS: ?Monitored by nursing throughout Therapeutic Activities (09968c[]): Direct one-on-one instruction in dynamic activities to improve functional performance. ?? transfers sit to/from stand x 3 with contact-guard assist patient requires inc reased time to process instruction to sit Chair to commode without assistive device contact-guard assist Commode to chair without assistive device contact-guard assist Patient ambulated 20 feet within room without assistive device contact-guard assist then spontaneously returned to seat ASSESSMENT:?Patient difficult to redirect and attend to task. Patient with significant delay with difficulty following instructions. Patient noted to perform spontaneous movements such as sit to stand and ambulation with contact- guard assist. Patient with continuous tardive dyskinesia/extraparametal movemen ts. Patient noted with poor eye contact. Patient at times with incoherent speech other times able to formulate full sentences however this is with spontaneous speech. PLAN: Continue per plan of care TREATMENT CODE/TIME: 78221/1300?1333 DISCHARGE RECOMMENDATION: SNF versus long-term placement
--- NOTE | 2024-09-22 14:19 | W.PM.PROGNOT ---
Date of Service Date of service: 09/22/24 Time of Service: 14:19 Assessment and Plan Assessment and plan (1) Acute encephalopathy: Status: Acute Assessment and plan: Remains unchanged from admission and remains medically stable No source of infection identified, likely decompensated schizoaffective disorder Clozapine level added and will be a send out Continue fall precautions/safety precautions Continue home medications Psychiatric evaluation was completed on September 20 with recommendation for stroke rule out which has been ruled out. (2) Acute CVA (cerebrovascular accident): Status: Ruled-out Assessment and plan: Ruled out Continue Plavix 75 mg daily as previously directed (3) Arthritis of left shoulder region: Status: Chronic Assessment and plan: Stable yjgf-ivr-faujiwz pain medication if needed for pain (4) Tardive dyskinesia: Status: Chronic Assessment and plan: History of will continue home meds Psych consult (5) Urinary retention: Status: Acute Assessment and plan: Bladder scan and PRN intermittent cath discussed with Subjective Subjective Patient reports: no new complaints Interval history since last seen: Remains altered and not at baseline, not taking good oral intake did take her medications crushed in applesauce. Hemodynamically stable with no fever no source of infection identified Exam Const General: cooperative and no acute distress Orientation: alert, awake and other (unable to assess) HENMT Head: normal to inspection and normocephalic Resp Effort & Inspection: normal respiratory effort Cardio Rate: regular rate Rhythm: regular rhythm GI Palpation: soft Skin General skin exam: no rashes or lesions noted Neuro Cognition: abnormal cognition Motor: muscle tone normal throughout Extrem General: normal to inspection and no pedal edema Objective Last Vital Signs Temp 36.7 C 09/22/24 07:40 Pulse 72 09/22/24 07:40 Resp 15 09/22/24 07:40 BP 138/92 H 09/22/24 07:40 Pulse Ox 98 09/22/24 07:40 Laboratory Results - last 24 hr 09/22/24 06:24 Sodium 143 Potassium 3.8 Chloride 109 H Carbon Dioxide 26.1 Anion Gap 7.9 BUN 13 Creatinine 0.6 Est GFR (CKD-EPI 2020) 96.50 Glucose 80 Calcium 9.6 Time Spent with Patient Time Spent with Patient: 35-49 minutes Time was spent: preparing to see the patient(eg.review tests), obtaining and/or reviewing separately otained hiistory, ordering medications,tests, procedures, indepentently interpreting results and counseling the patient
[2024-09-22 20:07] VITALS: BP 136/86; PULSE 84; RESP 16; TEMP 36.2; O2SAT 95
[2024-09-22] MEDS: Enoxaparin 40 MG/0.4 ML SYR SC (20:20)
[2024-09-22] MEDS: Atorvastatin 40 MG TAB PO (20:21)
[2024-09-23 03:30] VITALS: BP 102/72; PULSE 75; RESP 12; TEMP 36; O2SAT 99
[2024-09-23] MEDS: Levothyroxine 88 MCG TAB PO (06:25)
[2024-09-23] MEDS: buPROPion-CR 100 MG TABCR PO (08:13)
[2024-09-23] MEDS: Loratidine 10 MG TAB PO (08:14)
[2024-09-23] MEDS: Clopidogrel 75 MG TAB PO (08:14)
[2024-09-23] MEDS: Ascorbic Acid 500 MG TAB PO (08:14)
[2024-09-23] MEDS: Famotidine 20 MG TAB 10 MG PO (08:14)
[2024-09-23] MEDS: Acetaminophen 500 MG TAB 1000 MG PO ×2 (08:14→20:44)
[2024-09-23 11:50] VITALS: BP 130/74; PULSE 71; RESP 18; TEMP 36.5; O2SAT 98
--- NOTE | 2024-09-23 13:51 | PGE_ITS ---
Date of Service Date of service: 09/23/24 Time of Service: 13:51 Assessment and Plan Assessment and plan (1) Acute encephalopathy: Status: Acute Assessment and plan: improving slowly, No source of infection identified, likely decompensated schizoaffective disorder Clozapine level pending (send out) Continue fall precautions/safety precautions Continue home medications Psychiatric evaluation was completed on September 20 with recommendation for stroke rule out which has been ruled out. (2) Acute CVA (cerebrovascular accident): Status: Ruled-out Assessment and plan: Ruled out Continue Plavix 75 mg daily as previously directed (3) Arthritis of left shoulder region: Status: Chronic Assessment and plan: Stable akma-uzo-sqqhtkj pain medication if needed for pain (4) Tardive dyskinesia: Status: Chronic Assessment and plan: History of will continue home meds (5) Urinary retention: Status: Acute Assessment and plan: Bladder scan and PRN intermittent cath (6) Discharge planning issues: Status: Acute Assessment and plan: care team meeting for Tuesday to discuss discharge planning discussed with DR Lackey Subjective Subjective Patient reports: no new complaints, feels better, tolerating liquids well (poor po intake) and afebrile; denies shortness of breath Exam Const General: cooperative and no acute distress Orientation: alert, awake and other (unable to assess) HENMT Head: normal to inspection and normocephalic Resp Effort & Inspection: normal respiratory effort Cardio Rate: regular rate Rhythm: regular rhythm GI Palpation: soft Skin General skin exam: no rashes or lesions noted Neuro Cognition: abnormal cognition Motor: muscle tone normal throughout Extrem General: normal to inspection and no pedal edema Objective Last Vital Signs Temp 36.5 C 09/23/24 11:50 Pulse 71 09/23/24 11:50 Resp 18 09/23/24 11:50 BP 130/74 09/23/24 11:50 Pulse Ox 98 09/23/24 11:50 Time Spent with Patient Time Spent with Patient: 35-49 minutes Time was spent: preparing to see the patient(eg.review tests), obtaining and/or reviewing separately otained hiistory, ordering medications,tests, procedures, referring, communicating with other health transitional care manager, indepentently interpreting results and care coordination
--- NOTE | 2024-09-23 15:39 | PT.INTREAT ---
PT Notes Visit Reasons: TIA/ stroke, AMS Inpatient Physical Therapy Treatment Note [facility] Date: 09/23/2024 PRECAUTIONS: Fall risk, IV access left upper extremity, expressive and receptive aphasia SUBJECTIVE: Patient with garbled speech intermittently also mouthing at times without vocalization OBJECTIVE: Patient presented seated in chair appearing restless Patient with tardive dyskinesia left upper extremity with IV support board in place with bandage.. ? PAIN: Unable to express VITALS: ?Monitored by nursing throughout Therapeutic Activities (39152c[]): Direct one-on-one instruction in dynamic activities to improve functional performance. ?? transfers sit to/from stand x 3 with contact-guard assist patient requires increased time to process instruction to sit Patient ambulated 100 feet with FWW contact-guard assist narrow base of support easily distractive ASSESSMENT:?Patient was restless this treatment. Patient difficult to redirect and attend to task. Patient with significant delay with difficulty following instructions. Patient noted to perform spontaneous movements such as sit to stand and ambulation with contact-guard assist. Patient with continuous tardive dyskinesia/extraparametal movements. Patient noted with poor eye contact. Patient at times with incoherent speech other times able to formulate full sentences however this is with spontaneous speech. PLAN: Continue per plan of care TREATMENT CODE/TIME: 09183/3334-5941 DISCHARGE RECOMMENDATION: SNF versus long-term placement
[2024-09-23] MEDS: Atorvastatin 40 MG TAB PO (20:45)
[2024-09-23] MEDS: Enoxaparin 40 MG/0.4 ML SYR SC (20:45)
[2024-09-23 20:46] VITALS: BP 123/70; PULSE 90; RESP 15; TEMP 37.4; O2SAT 96
[2024-09-24] MEDS: Levothyroxine 88 MCG TAB PO (05:23)
[2024-09-24] MEDS: Acetaminophen 500 MG TAB 1000 MG PO ×2 (07:46→20:27)
[2024-09-24] MEDS: Ascorbic Acid 500 MG TAB PO (07:54)
[2024-09-24] MEDS: Loratidine 10 MG TAB PO (08:00)
[2024-09-24] MEDS: Clopidogrel 75 MG TAB PO (08:00)
[2024-09-24] MEDS: Famotidine 20 MG TAB 10 MG PO (08:01)
[2024-09-24] MEDS: buPROPion-CR 100 MG TABCR PO (08:07)
[2024-09-24 08:51] VITALS: BP 110/74; PULSE 78; RESP 16; TEMP 36.3; O2SAT 95
[2024-09-24] MEDS: Lactated Ringers 1,000 ML 100 ML IV ×2 (11:02→22:42)
--- NOTE | 2024-09-24 13:29 | PGE_ITS ---
Date of Service Date of service: 09/24/24 Time of Service: 13:29 Assessment and Plan Assessment and plan (1) Acute encephalopathy: Status: Acute Assessment and plan: improving slowly, No source of infection identified, likely decompensated schizoaffective disorder Clozapine level pending (send out) Continue fall precautions/safety precautions Continue home medications Psychiatric evaluation was completed on September 20 with recommendation for stroke rule out which has been ruled out. (2) Acute CVA (cerebrovascular accident): Status: Ruled-out Assessment and plan: Ruled out Continue Plavix 75 mg daily as previously directed (3) Arthritis of left shoulder region: Status: Chronic Assessment and plan: Stable rnmy-lbx-ujtzanq pain medication if needed for pain (4) Tardive dyskinesia: Status: Chronic Assessment and plan: History of will continue home meds (5) Urinary retention: Status: Acute Assessment and plan: Bladder scan and PRN intermittent cath (6) Discharge planning issues: Status: Acute Assessment and plan: care team meeting today determined Yaima's services - Imani is homemaker that sees Yaima 2-3 hours per week, it seems that is the only services she is receiving as she (as we are told) does not interact with anyone else. Referrals to [facility] pending discussed with Dr Lackey Subjective Subjective Patient reports: no new complaints Exam Const General: cooperative and no acute distress Orientation: alert, awake and other (unable to assess) HENMT Head: normal to inspection and normocephalic Resp Effort & Inspection: normal respiratory effort Cardio Rate: regular rate Rhythm: regular rhythm GI Palpation: soft Skin General skin exam: no rashes or lesions noted Neuro Cognition: abnormal cognition Motor: muscle tone normal throughout Extrem General: normal to inspection and no pedal edema Objective Last Vital Signs Temp 36.3 C L 09/24/24 08:51 Pulse 78 09/24/24 08:51 Resp 16 09/24/24 08:51 BP 110/74 09/24/24 08:51 Pulse Ox 95 09/24/24 08:51 Time Spent with Patient Time Spent with Patient: 25-34 minutes Time was spent: preparing to see the patient(eg.review tests), ordering medications,tests, procedures, referring, communicating with other health critical care transport nurse, indepentently interpreting results, counseling the patient and care coordination
[2024-09-24] MEDS: traMADol 50 MG TAB 100 MG PO (13:33)
--- NOTE | 2024-09-24 14:40 | PT.INTREAT ---
PT Notes Visit Reasons: TIA/ stroke, AMS Inpatient Physical Therapy Treatment Note [facility] Date: 09/24/24 SUBJECTIVE: Yaima not very responsive on my first attempt this am. I checked in on her later in am, in hopes to get her up for lunch. She seemed very uncomfortable, jumping with what appeared to be pain. She did c/o right arm pain as she went to reach out for walker. Seemed disorientated and unable to verbalize her needs. PM session. Seemed agitated. Again not able to verbalize needs. OBJECTIVE: []? PAIN: right arm pain in am and no complaints in pm VITALS: ?monitored by ramiro. Therapeutic Activities ([id number]): Direct one-on-one instruction in dynamic activities to improve functional performance. ? BED MOBILITY/TRANSFERS? Supine-sit:CGA? Sit-stand: CGA? Stand-sit: CGA? Provided skilled cues and instruction on performance and technique throughout. GAIT? Assistive Device: FWW? Weight bearing:full Assist:CGA ? Distance:?7' in am and 20' in pm? Deviation: walker management? Therapeutic Exercises (42609b[]): Direct one-on-one instruction in therapeutic exercises to develop strength, endurance, range of motion and flexibility. ? Exercises ?unable to follow directions/commands. ASSESSMENT:? hard to follow directions. She stood in one place and looked around the room. I was i=unable to get her to go for a walk. She did manage to walk into bathroom. She stood in front of mirror, washed her face and hands and played with her hair. She did not void. Easily distracted PLAN: will continue to work on her functional mobility to tolerance. TREATMENT CODE/TIME: 20 min in am and 10 min in pm ([id number]) DISCHARGE RECOMMENDATION: SNF vs LTC
--- NOTE | 2024-09-24 15:16 | CMPROGNOTE_ITS ---
Date of service: 09/24/24 Time of Service: 15:16 Care Management Progress Note Progress Note Text Progress Note Text: Yaima was awake and lying in bed when CM met with her. She has been admitted X 4 days with encephlopathy, which per provider is slowly improving. Yaima remains unable to engage in conversation, but makes good eye contact as she appears to be thinking and unable to put her thoughts into words. Yaima presented to the Hospital with a similar presentation last August, which per documentation was largely felt to be related to inconsistently taking her psych meds at home. Yaima has support services in the Community and a team meeting was put together to discuss her services in the community and identify challenges with medication management. It was identified that Yaima has connected/bonded with Imani from [facility], otherwise is noted to have a difficult time interacting with other team members. The goal is for Yaima to be functional and safe in the community and encourage her to engages with the time, while also respecting her choices. TALENT MANAGEMENT SPECIALIST has agreed to revert back to daily med drops (if Yaima is agreeable) and to hold team meetings with Yaima present and involved in the planning. Yaima is not medically ready for discharge and D/C planning continues to be dependent on her progress. With that said, Geriatric psych referrals were sent this afternoon to [facility] in anticipation for her discharge readiness. The Care bed should be considered if Yaima becomes medically appropriate and they have capacity. During the meeting it was identified that Argelia from [facility] will be the point Chief Knowledge Officer for the community and CM agreed to provide updates as discharge readiness approaches and plan is better known. CM will continue to follow. Discharge Potential Discharge Needs: PCP F/U Appt and Other (TALENT MANAGEMENT SPECIALIST CM Julia's) Anticipated Barriers to Discharge: None Identified Patient/Family Education Needs: Review discharge instructions, discuss Ask Me Three Transportation: Other (Dependent on Dispo) Plan: Yaima is admitted with AMS. She is acutely encephalopatic and with altered speech and her D/C plan will be dependent on progress made. Geriatric psych referrals were sent to [facility] this afternoon. CM will continue to follow. Social Determinants of Health Screening Will the Patient Participate in the Screening?: Unable to obtain
[2024-09-24 19:23] VITALS: BP 117/101; PULSE 78; RESP 19; TEMP 37; O2SAT 95
[2024-09-24 19:47] VITALS: BP 128/80; PULSE 68
[2024-09-24] MEDS: Normal Saline Flush 10 ML SYR IVP (20:26)
[2024-09-24] MEDS: Enoxaparin 40 MG/0.4 ML SYR SC (20:26)
[2024-09-24] MEDS: Atorvastatin 40 MG TAB PO (20:28)
[2024-09-24 23:13] VITALS: BP 168/92; PULSE 67; RESP 18; TEMP 36.7; O2SAT 95
[2024-09-25] MEDS: Levothyroxine 88 MCG TAB PO (05:56)
[2024-09-25 06:37] LABS: Abs Immature Grans 0.02 10^3/uL (0.0-0.06); Absolute Basophil Count 0.05 10^3/uL (0.0-0.2); Absolute Eosinophil Count 0.27 10^3/uL (0.0-0.7); Absolute Lymphocyte Count 1.73 10^3/uL (1.2-3.4); Absolute Monocyte Count 0.41 10^3/uL (0.1-0.8); Absolute Neutrophil Count 3.37 10^3/uL (1.2-6.7); Basophils % 0.9 %; Eosinophils % 4.6 %; HCT 39.1 % (36.0-46.0); HGB 12.7 g/dL (11.2-15.7); Immature Grans % 0.3 %; Lymphocytes % 29.6 %; MCH 30.1 pg (27.0-33.0); MCHC 32.5 % (32.0-36.0); MCV 93 fL (80-95); MPV 10.3 fL (8.0-11.0); Neutrophils % 57.6 %; Platelet Count 230 10^3/uL (130-400); RBC 4.22 10^6/uL (3.93-5.22); RDW 12.9 % (11.7-14.6); RDW-SD 43.8 fL; WBC 5.85 10^3/uL (4.4-10.8)
[2024-09-25 07:01] LABS: BUN 22 mg/dL (7-18); CREATININE 0.8 mg/dL (0.55-1.02); Calcium 9.3 mg/dL (8.5-10.1); Chloride 109 mmol/L (98-107); Estimated GFR 79.22 (mL/min/1.73m2); Glucose 85 mg/dL (74-106); Magnesium 1.6 mg/dL (1.8-2.4); Potassium 3.5 mmol/L (3.5-5.1); Sodium 144 mmol/L (136-145)
[2024-09-25 07:57] VITALS: BP 138/76; PULSE 65; RESP 18; TEMP 36.8; O2SAT 95
[2024-09-25] MEDS: Lactated Ringers 1,000 ML 100 ML IV (08:23)
[2024-09-25] MEDS: Famotidine 20 MG TAB 10 MG PO (08:25)
[2024-09-25] MEDS: Acetaminophen 500 MG TAB 1000 MG PO ×2 (08:25→20:27)
[2024-09-25] MEDS: buPROPion-CR 100 MG TABCR PO (08:25)
[2024-09-25] MEDS: Clopidogrel 75 MG TAB PO (08:25)
[2024-09-25] MEDS: Loratidine 10 MG TAB PO (08:25)
[2024-09-25] MEDS: Ascorbic Acid 500 MG TAB PO (08:25)
[2024-09-25] MEDS: Normal Saline Flush 10 ML SYR IVP ×2 (08:29→20:27)
--- NOTE | 2024-09-25 09:29 | CMPROGNOTE_ITS ---
Date of service: 09/25/24 Time of Service: 09:29 Care Management Progress Note Progress Note Text Progress Note Text: Yaima was awake and sitting in a recliner when CM met with her. She is more clear today and engages in meaningful conversation. Yaima accurately states her name, knows she at [facility] and the date is September 25. Yaima talks about living alone in an apartment in [place], which she adds is in disarray and hard for her to clean. She wants to live independently and acknowledges that sometimes she feels good, and other times bad and ends up here. Yaima admits that she doesn't always accept support from her community team because it makes her feel like she is taking advantage of people, adding that she wants to help people and children and in a round about way stating that she doesn't want to take away from the support others receive. CM discussed the importance for Yaima to take care of herself, in order to help other people and she was easily redirected and by the end of our conversation she reports that she wants to engage more with her team members, adding that she likes to swim. At this time, Yaima is interested in getting a new straight talk cell phone, she appears to be accepting of additional support and also asked Argelia for her phone number and wrote it in wrote in the note pad she brought from home. Yaima seems to have had a positive experience when she went to [facility] around this time last year and is agreeable to go back there or to [facility]. Of note, Yaima shared with CM that this is a really hard time of year for her because of Day and she thinks about her Dad and is sad, further sharing that she keeps her feelings inside. Yaima spoke to Jennifer and a provider from [facility] via phone and she has a bed offer for tomorrow with the understanding that she must arrive by 9:30 at the very latest. CM advised her CM from [employer] ([place]) and she came to the hospital right away to meet with Yaima. Yaima needs clothes from her home and Argelia made arrangements with Sherita (Yaima's Friend) and clothes will be dropped off at the hospital later today. Discharge Potential Discharge Needs: Other ([facility]) Anticipated Barriers to Discharge: None Identified Patient/Family Education Needs: Review discharge instructions, discuss Ask Me Three Transportation: EMS ([facility]) Plan: Yaima is planning to discharge to [facility] tomorrow morning by 0930 at the latest. [facility] will be here at 8:45 to pick her up. Yaima will follow up with providers at [facility] and her community team. Argelia from [facility] is aware of discharge plan and will update her community team. Her friend Sherita agreed to drop off some clothing from home later today, per Argelia. CM will continue to follow. Social Determinants of Health Screening Will the Patient Participate in the Screening?: Unable to obtain
--- NOTE | 2024-09-25 11:04 | PT.INTREAT ---
PT Notes Visit Reasons: TIA/ stroke, AMS Inpatient Physical Therapy Treatment Note [facility] Date: 09/25/24 SUBJECTIVE: Yaima was easily led and guided through today's session despite persistent confusion and off-tangent verbalizations. She expressed pain in her L thigh and knee during the walk, trying to somehow bend at the L hip with the knee straight as if to stretch it. Very easily distractible requring frequent redirection to task. OBJECTIVE: Remains confused and responses not aligned with questions asked however can follow single-step commands with repetition of instcructions. ? PAIN: Appeared to have L knee and thigh pain aggravated somewhat by weight bearing VITALS: Closely monitored by nursing staff ? TRANSFERS:? ? Moderate to maximal cueing provided for use of B hands as needed for support, movement sequence, AD management, and posture to reduce fall risk and minimize pain report ? Sit-stand: standby assist? with FWW? Stand-sit: standby assist? with FWW? GAIT? Assistive Device: FWW? Weight bearing:FWB Assist: stand by assist?and IV pole amangement of PT, FEMI Kinney provided wheelchair follow ? Distance:?200 feet? Deviation: Mild antalgia on L side with weight bearing, decreased stance time on L, decreased swing time on R. Moderate to maximal cueing needed as patient could not handle multiple environemental stimuli when she started walking in the hallway. Needed to be THEREX: Worked on increasing safety of sit<>stand doing hair push ups x 5 ASSESSMENT: Covered the farthest distance since start of care. Easily distractible, neeed frequent redirection with moderate to maximal cueing for continuity of activity performance and movement execution. More able to follow instructions today but conversations/responses remain off-tangent 75% of the time. Expressed pain/discomfort on the the L knee which RITESH Jewell was aware of. Will notify nurse per protocol to address symptom accordingly. PLAN: Progress mobility level, strength, and safety awareness as able to decrease fall risk. DISCHARGE RECOMMENDATION: Short-term SNF vs LTC based on overall functional and cognitive progress TREATMENT CODE/TIME: 51469 x 46 minutes for 3 units (10:08-10:54).
--- NOTE | 2024-09-25 15:09 | PGE_ITS ---
Date of Service Date of service: 09/25/24 Time of Service: 15:09 Assessment and Plan Assessment and plan (1) Acute encephalopathy: Status: Acute Assessment and plan: improving slowly, No source of infection identified, likely decompensated schizoaffective disorder Clozapine level pending (send out) Continue fall precautions/safety precautions Continue home medications Psychiatric evaluation was completed on September 20 with recommendation for stroke rule out which has been ruled out. (2) Acute CVA (cerebrovascular accident): Status: Ruled-out Assessment and plan: Ruled out Continue Plavix 75 mg daily as previously directed (3) Arthritis of left shoulder region: Status: Chronic Assessment and plan: Stable [id number]-[id number] pain medication if needed for pain (4) Tardive dyskinesia: Status: Chronic Assessment and plan: History of will continue home meds (5) Urinary retention: Status: Acute Assessment and plan: Bladder scan and PRN intermittent cath (6) Discharge planning issues: Status: Acute Assessment and plan: The patient was administered an Aid to Capacity evaluation and demonstrated a general understanding of her medical condition, stating she has difficulty with concentration and physical functioning, including balance. She showed partial understanding of the proposed treatment plan, acknowledging that she is not a medical professional but expressed openness to both medication and therapy. She understood that alternatives to the proposed treatment include returning home or admission to a nursing home facility, and voiced that neither would be beneficial for her. The patient inquired whether her insurance would cover a visit to [facility], noting she recalls a prior positive experience there and appreciated the treatment she received. She understands that she has the right to refuse treatment and is not exhibiting signs of depression or psychosis that would impair her judgment. Responses to questions were delayed, which is her usual baseline; appropriate time was allowed for her to respond. CDase worker from [facility] [facility] present for evaluation. Argelia knows Yaima and agrees she has capacity and is at baseline cognitively. discussed with Dr Lackey Subjective Subjective Patient reports: no new complaints, tolerating liquids well, tolerating a regular diet, voiding w/o difficulty, bowel movement and afebrile; denies diarrhea, nausea, vomiting or shortness of breath Interval history since last seen: Yaima is sitting in a recliner in the room. She did eat a good lunch Exam Const General: cooperative and no acute distress Orientation: alert, awake and oriented x3 HENMT Head: normal to inspection and normocephalic Chest Chest: normal inspection of the chest Resp Effort & Inspection: normal respiratory effort Cardio Rate: regular rate Rhythm: regular rhythm GI Inspection: normal to inspection Palpation: soft Skin General skin exam: no rashes or lesions noted Neuro Cognition: normal cognition Speech: receptive aphasia Motor: muscle tone normal throughout Sensory Exam: no sensory deficits noted Extrem General: normal to inspection and no pedal edema Objective Last Vital Signs Temp 36.8 C 09/25/24 07:57 Pulse 65 09/25/24 07:57 Resp 18 09/25/24 07:57 BP 138/76 09/25/24 07:57 Pulse Ox 95 09/25/24 07:57 Laboratory Results - last 24 hr 09/25/24 06:30 WBC 5.85 RBC 4.22 Hgb 12.7 Hct 39.1 MCV 93 MCH 30.1 MCHC 32.5 RDW 12.9 Plt Count 230 MPV 10.3 Immature Gran % 0.3 Neutrophils % 57.6 Lymphocytes % 29.6 Monocytes % 7.0 Eosinophils % 4.6 Basophils % 0.9 Nucleated RBC % 0.0 Absolute Neutrophils 3.37 Absolute Lymphocytes 1.73 Absolute Monocytes 0.41 Absolute Eosinophils 0.27 Absolute Basophils 0.05 Sodium 144 Potassium 3.5 Chloride 109 H Carbon Dioxide 27.0 Anion Gap 8.0 BUN 22 H Creatinine 0.8 Est GFR (CKD-EPI 2020) 79.22 Glucose 85 Calcium 9.3 Magnesium 1.6 L Time Spent with Patient Time Spent with Patient: 25-34 minutes Time was spent: preparing to see the patient(eg.review tests), ordering medi cations,tests, procedures, referring, communicating with other health healthcare translator, indepentently interpreting results, counseling the patient and care coordination
--- NOTE | 2024-09-25 15:59 | PT.INTREAT ---
Date of service: 09/25/24 Time of Service: 15:00 PT Notes Visit Reasons: TIA/ stroke, AMS Inpatient Physical Therapy Treatment Note [facility] Date: 09/25/2024 SUBJECTIVE: Patient indicated that she usually uses a pad in her underwear. Upon returning to her room she wanted to get her street clothes out of the bag on the windowsill. Did pull out her underwear and pants but was distracted by Chris (nurse healthcare administrative assistant) who entered the room to conference with Alison. She did express that she had pain in her L thigh and knee several times t/o session this afternoon, as well as occasionally jumping as if something was hurting her in her bilateral arms and back. Was unable to express were pain was coming from, other than her left LE. Indicated she wanted to do exercises with her legs. Attempted to show me exercises while leaning on rolling table in her room. Agreeable to walking to PT office and do them in there so she could hold on to support bar. Questioning if she needs her compression socks. I did discuss this with nursing staff personnel. Very easily distracted which requiring frequent redirection to task. OBJECTIVE: ? PAIN: Appeared to have L knee and thigh pain both with walking and when sitting in office in the afternoon. Does present as if she gets jolts of pain in arms and back as well, but unable to verbalize this. TRANSFERS:? ? Verbal cueing to use of B hands for support on chair with sit to stand and stand to sit for safety. ? Stand-sit: Verbal cueing for safety. ? GAIT? Assistive Device: FWW? Weight bearing:FWB Assist: stand by assist?and IV pole amangement of PT, SENIOR PROJECT ARCHITECT Gregoria provided wheelchair follow ? Distance:?220 feet?and 80 feet ? Deviation: Mild antalgia on L side with weight bearing, decreased stance time on L, decreased swing time on R. Easily distracted when walking, likes to see what is happening around her. THEREX: While in PT dept she was able to perform standing hip PREs (flexion/ abduction) and knee flexion for 10 reps each, while holding on to railing. While in seated position she was able to perform LAQs x 15 reps each. ASSESSMENT: Continues to be easily distractible, with need for frequent redirection with moderate - maximal cueing for continuity of activity performance. Continues to express pain/discomfort on the the L thigh and knee. PLAN: Continue to progress mobility level, strength, and safety awareness as able to decrease fall risk. TREATMENT CODE/TIME: 40 minutes DISCHARGE RECOMMENDATION: As per supervising PT's recommendations - short-term SNF vs LTC based on overall functional and cognitive progress
--- NOTE | 2024-09-25 16:50 | CHAPLAIN ---
I was visiting with Yaima, she was talking about her walk with PT earlier in the day, as well as how much she likes swimming and her concern about what she says is recent weight gain. Yaima speaks slowly, and it often takes a longer than average to her sentences out but she is thoughtful in what she is saying. While I was talking with Yaima, Fanta from [facility] came in and talked with Yaima about the option of going to [facility] at [facility] from her to get her medication regimen more consistent. The last time she was here, Yaima was discharged to a place further away. She asked Fanta good questions about if her insurance would cover her stay at [facility] and if she'd be able to exercise there. The staff at [facility] needed to interview Yaima on the phone so Fanta called them while we were with Yaima. While asking questions, the staff members sometimes didn't wait long enough for Yaima to complete her whole response, but she seemed clear in knowing why she'd be going there. She could leave as early as tomorrow. I will try to visit with her before she goes.
[2024-09-25] MEDS: Atorvastatin 40 MG TAB PO (20:27)
[2024-09-25] MEDS: Enoxaparin 40 MG/0.4 ML SYR SC (20:27)
[2024-09-25 23:20] VITALS: BP 152/81; PULSE 75; RESP 20; TEMP 37; O2SAT 95
[2024-09-26] MEDS: Levothyroxine 88 MCG TAB PO (05:02)
[2024-09-26 07:23] VITALS: BP 140/74; PULSE 76; RESP 17; TEMP 36.8; O2SAT 95
[2024-09-26] MEDS: Famotidine 20 MG TAB 10 MG PO (07:37)
[2024-09-26] MEDS: buPROPion-CR 100 MG TABCR PO (07:37)
[2024-09-26] MEDS: Clopidogrel 75 MG TAB PO (07:37)
[2024-09-26] MEDS: Loratidine 10 MG TAB PO (07:37)
[2024-09-26] MEDS: Magnesium Chloride 64 MG TABCR PO (07:37)
[2024-09-26] MEDS: Ascorbic Acid 500 MG TAB PO (07:37)
[2024-09-26] MEDS: Normal Saline Flush 10 ML SYR IVP (07:38)
[2024-09-26] MEDS: Acetaminophen 500 MG TAB 1000 MG PO (07:38)
--- NOTE | 2024-09-26 08:44 | DSE_ITS ---
Date of service: 09/26/24 Time of Service: 08:45 DS: Diagnosis Discharge Diagnosis (1) Acute encephalopathy: Status: Acute (2) Acute CVA (cerebrovascular accident): Status: Ruled-out (3) Arthritis of left shoulder region: Status: Chronic (4) Tardive dyskinesia: Status: Chronic (5) Urinary retention: Status: Acute (6) Discharge planning issues: Status: Acute Discharge Plan Disposition Patient Disposition: Transfer-Acute Inpatient Care Specific Acute Inpt Facility: Other Condition: Improving Discharge Details Reason For Visit: TIA/ stroke, AMS Admit Date/Time: 09/20/24 15:43 Admit Provider: Cas Ramirez Attending Provider: Cas Ramirez Primary Care Provider: Dillon Scott Hospital Course Hospital Course: The patient is a 68-year-old female with a history of CVA, schizoaffective disorder, and tardive dyskinesia who presented via EMS with altered mental status?manifesting as incoherent speech and continuous purposeless movements. She was aphasic on exam but had equal bilateral hand strength and was able to stand with some weakness. Initial workup included a negative head CT, unremarkable labs except for mild alk phos elevation, and a stroke evaluation (including MRI and neuro consult), which ruled out acute CVA. The patient had a nearly identical episode a year ago which resolved after psychiatric medication adjustment. She was presumed noncompliant with her home medication regimen. Psychiatry recommended reinitiating her psychiatric medications and monitoring clozapine levels (pending). She was treated symptomatically with a small dose of lorazepam for restlessness. A capacity evaluation was performed. Despite slowed responses (her baseline), the patient demonstrated general understanding of her condition, treatment, and options, and clearly expressed a preference to return to [facility], where she had previously received care. [employer] marine steam fitter Argelia, familiar with the patient, agreed that the patient was at cognitive baseline and had decision- making capacity. She declined SNF placement, preferring outpatient or psychiatric support. Recommend magnesium supplementation. 1. Acute Encephalopathy Status: Acute * Likely secondary to decompensated schizoaffective disorder * Stroke and infectious etiologies ruled out (MRI, labs) * Restarted home medications; clozapine level pending * Lorazepam PRN for agitation * Psychiatric evaluation completed September 20 * Fall precautions in place 2. Cerebrovascular Accident (CVA) Status: Ruled Out * MRI negative; neuro consult completed * Continue Plavix 75 mg daily * ASA administered in ED * Echo with bubble completed 3. Left Shoulder Arthritis Status: Chronic * Stable * [id number] analgesics as needed * Steroid therapy planned outpatient 4. Tardive Dyskinesia Status: Chronic * Continue home medications 5. Hypomagnesemia Status: Acute Recommend magnesium supplementation 5. Discharge Planning / Social Concerns Status: Acute * Patient receives limited homemaker support (2?3 hours/week) * No other structured support or regular social interaction * Aid to Capacity Evaluation confirmed capacity * Patient requested transfer to [facility] for continued psychiatric support * Transferred to [facility] at [facility] for geriatric psychiatric care and medication management Follow-Up Recommendations * [facility] psychiatric team to continue management of schizoaffective disorder and medication adjustment * Monitor clozapine level when available * Magnesium supplementaiton * Primary care follow-up after psychiatric discharge as needed * Ensure communication with [facility] and outpatient services for ongoing care planning Home Meds and New Rx's Prescriptions: New magnesium chloride [Mag 64] 64 mg Tablet,Delayed Release (Dr/Ec) 64 mg PO DAILY Qty: 0 0RF Continued ascorbate calcium (vitamin C) 500 mg tablet 500 mg PO DAILY melatonin 3 mg capsule 3 mg PO HS PRN furosemide 20 mg tablet 20 mg PO DAILY PRN (Reason: edema) Qty: 30 0RF clozapine 100 mg tablet 100 mg PO HS (DME) Raised Toilet Seat See Rx Instructions .ROUTE .MEDSUPPLY Qty: 1 0RF Rx Instructions: As directed levothyroxine 88 mcg tablet 88 mcg PO DAILY Qty: 90 3RF loratadine 10 mg tablet 10 mg PO DAILY Qty: 90 4RF atorvastatin 40 mg tablet 40 mg PO QPM Qty: 90 3RF famotidine 20 mg tablet 20 mg PO DAILY Qty: 90 3RF clopidogrel 75 mg tablet 75 mg PO DAILY Qty: 90 3RF bupropion HCl 100 mg Tablet Sustained-Release 12 Hr 100 mg PO QAM Qty: 30 0RF Changed acetaminophen 500 mg tablet 1,000 mg PO TID PRN (Reason: Pain (Scale Score 1-3)) Qty: 90 3RF Discharge Instructions Activity:: Activity as Tolerated Equipment/Supplies:: No Equipment Needed Diet:: As Tolerated Discharge Orders Discharge Orders: Discharge Order (Routine); Ordered 09/26/24 Ordered By: Yesenia Brantley DS: Summary Time Spent with Patient providing and/or coordinating discharge services: Greater than 30 minutes Status at Discharge Functional status at discharge: uses cane/walker Overall status at discharge: patient is progressing back to baseline Mental Status: mental status grossly normal Speech and Movement: speech and movement normal Mood: congruent mood Affect: indifferent Quality:SDOH Health Related Social Needs: No Data to Display Exam Psych Mental Status: mental status grossly normal Speech and Movement: speech and movement normal Mood: congruent mood Affect: indifferent DS: Data Vitals/I&O Vitals and I&O: Vital Signs Temperature 36.8 C 09/26/24 07:23 Temperature Source Temporal Artery Scan 09/26/24 07:23 Pulse 76 09/26/24 07:23 Pulse 54 L 09/20/24 15:17 Respiratory Rate 17 09/26/24 07:23 Respiratory Effort Normal, Non-Labored 09/20/24 19:00 Respiratory Depth Normal 09/20/24 19:00 Respiratory Pattern Normal 09/20/24 19:00 Blood Pressure 140/74 09/26/24 07:23 Blood Pressure Mean 96 09/26/24 07:23 Pulse Oximetry 95 09/26/24 07:23 Oxygen Delivery Method Room Air 09/26/24 07:23 Oxygen Flow Rate 0 09/26/24 07:23 Pain Level 0 09/26/24 07:23 Comment Patient wouldn't sit still for bp. 09/24/24 19:23 Intake & Output 09/25/24 09/25/24 09/26/24 11:59 23:59 11:59 Intake Total 968.333 / 1578.333 610 / 1578.333 Output Total 625 / 725 100 / 725 700 / 700 Balance 343.333 / 853.333 510 / 853.333 -700 / -700 Weight 65.4 kg Intake: IV 968.333 / 1228.333 260 / 1228.333 Oral 350 / 350 Output: Urine 625 / 725 100 / 725 700 / 700 Other: Urine Color Yellow Yellow Yellow Urine Appearance Clear Clear Clear Urine Odor None Comment urine mixed with stool PVR Stool Size Small Stool Characteristics Soft Formed Brown PFSH All Active Problems (Updated 05/09/24 @ 11:44 by Alona Alvarez) Discharge planning issues (Acute) Urinary retention (Acute) Acute encephalopathy (Acute) Arthritis of left shoulder region (Chronic) DEPO MEDROL 07/12/24 Other bursal cyst, left shoulder (Chronic) Swelling of joint, shoulder, left (Chronic) Nail dystrophy (Chronic) Edema (Chronic) Cough (Chronic) Contraindication to deep vein thrombosis (DVT) prophylaxis (Chronic) Tardive dyskinesia (Chronic) Dysarthria (Chronic) Difficulty comprehending speech (Chronic) PVD (peripheral vascular disease) (Chronic) Malaise (Chronic) Low back pain (Chronic) Elevated serum alkaline phosphatase level (Chronic) Peripheral edema (Chronic) Left knee pain (Chronic) History of total left hip replacement (Chronic 11/11/21) Schizoaffective disorder (Chronic) Chronic diarrhea (Chronic) Diarrhea (Chronic 05/15/12) h/o collagenous colitis 2008 on colonoscopy Edentulous (Chronic 10/17/13) 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 MRSA (methicillin resistant staph aureus) culture positive (Chronic 04/04/13) Hyponatremia (Chronic 03/24/94) Abnormal weight loss (Chronic 06/21/12) Hydradenitis (Chronic) in rt upper thigh region Rash (Chronic) Leg swelling (Chronic) Bilateral knee pain (Chronic) Left knee DJD (Chronic) Most recent injection: 04/12/24; 08/30/22; 05/27/2021; 08/18/20; 03/31/2020 Hematuria (Chronic) Thoracic aortic aneurysm (Chronic) 4.[address] from 09/[address] from 10/2021 Lethargy (Chronic) AMS (altered mental status) (Chronic) Depression (Chronic) Hypokalemia (Chronic) Elevated troponin (Chronic) Accidental overdose (Chronic) Hypokalemia (Chronic) Hypomagnesemia (Chronic) Left shoulder pain (Chronic) Right leg pain (Chronic) Schizoaffective disorder (Chronic) DVT prophylaxis (Chronic) CVA (cerebral vascular accident) (Chronic) Rash (Chronic) Dry skin (Chronic) Status post right hip replacement (Chronic 08/05/21) Medical History (Updated 09/23/24 @ 15:23 by Maura Amaro NP) GERD (gastroesophageal reflux disease) Urge urinary incontinence Osteoarthritis Hypothyroidism Folliculitis Hx of malignant neoplasm of vagina Hx MRSA infection Surgical History (Updated 05/09/24 @ 11:44 by Alona Alvarez) History of hip replacement Colonoscopy - [facility] (02/14/17) Colonoscopy - [facility] (01/12/11) Social History Smoking/Tobacco Use Status: Current-Occasional Tobacco Type: cigarettes Smoking risk assessment performed?: Yes Alcohol Intake: current Alcohol Intake frequency: holidays/special occasions only Drug use: Never Substance use type: does not use Housing: apartment Current gender identity: female Do you feel safe at home: Yes Do you feel safe in your relationship?: Yes Time Spent with Patient Time Spent with Patient: 45-69 minutes Time was spent: preparing to see the patient(eg.review tests), ordering medications,tests, procedures, referring, communicating with other health career development associate, indepentently interpreting results, counseling the patient and care coordination
--- NOTE | 2024-09-26 09:18 | PDOC.CMDIS ---
Date of service: 09/26/24 Time of Service: 09:18 LACE Index Scoring Tool Questions: Length of Stay (in days): 4 - 6 Was the patient admitted via the E.D.?: Yes Comorbidities: Cerebrovascular Disease E.D. Visits: 0 Answers: Total Score: 8 Risk of Readmission: Low Risk Care Management Discharge Plan Reason for Hospitalization: TIA/stroke, AMS Discharge Plan: Yaima transferred to [facility] at [facility] this morning; she was accepted yesterday evening, and transport was coordinated by CM via EMS ([facility]). She will remain at [facility] until her mentation improves and medications are adjusted. CM agreed to take Yaima back from [facility], if she is unable to discharge directly home. She will follow up with her PCP and discharge plan of care. Patient/Family Education Needs: Review discharge instructions and limitations, discussion of self care needs including ask me three. Services Needed at Discharge: Psychiatric Facility ([facility]) and Transportation (EMS) SDOH Health Related Social Needs: No Data to Display
[2024-09-26 17:21] LABS: Clozapine 147 ng/mL (350-600); Clozapine+Norclozapine Total 236 ng/mL; Norclozapine 89 ng/mL
== END 2024-09-26 08:56 | disposition short-term general hospital (02) | DRG 885 ==
LOC: ER 13:47 → MS 17:08
PROVIDERS: Nurse Practitioner Acute Care; Admitting Provider Family Medicine; Emergency Provider Emergency Medicine; PCP Family Medicine; Responsible Provider Nurse Practitioner Family; Visit Provider Family Medicine
DX: G93.40 Encephalopathy, unspecified; R47.01 Aphasia; M19.012 Primary osteoarthritis, left shoulder; G24.01 Drug induced subacute dyskinesia; F25.9 Schizoaffective disorder, unspecified; Z86.73 Personal history of transient ischemic attack (TIA), and cerebral infarction without residual deficits; I73.9 Peripheral vascular disease, unspecified; K52.831 Collagenous colitis; M54.50 Low back pain, unspecified; Z96.642 Presence of left artificial hip joint; F17.210 Nicotine dependence, cigarettes, uncomplicated; I71.20 Thoracic aortic aneurysm, without rupture, unspecified; N39.41 Urge incontinence; Z96.641 Presence of right artificial hip joint; E03.9 Hypothyroidism, unspecified; K21.9 Gastro-esophageal reflux disease without esophagitis; R53.1 Weakness; R45.1 Restlessness and agitation; R33.9 Retention of urine, unspecified; Z91.199 Patient's noncompliance with other medical treatment and regimen due to unspecified reason; E83.42 Hypomagnesemia
CPT/HCPCS: 00123; 36415; 36416; 80048; 80053; 80061; 82962; 87637; 93005; 93306; 96360; 97162; 97530; 99285; J1650; 70450; 70490; 70551; 71045; 80159; 80320; 80329; 81003; 82140; 83036; 83735; 84443; 84484; 85025; 93010; 99223; 99231; 99232; 99233; 99239; J2060; J3480; J3490

== ENCOUNTER 2024-09-27 14:41 | Inpatient (IN) | payer MEDICARE, SELFPAY ==
[2024-09-27 13:44] VITALS: BP 150/88; PULSE 78; RESP 18; TEMP 36.8; O2SAT 94
--- NOTE | 2024-09-27 14:40 | HPE_ITS ---
Date of service: 09/27/24 Time of Service: 14:41 Assessment and Plan Assessment and plan (1) Schizoaffective disorder: Status: Chronic Assessment and plan: History of noncompliance to medicine Continue home meds and recommended meds as per rehab follow-up and psych consult (2) Hypothyroidism: Status: Chronic Assessment and plan: Continue home dose of levothyroxine (3) Arthritis of left shoulder region: Assessment and plan: Continue outpatient management Schedule acetaminophen (4) Tardive dyskinesia: Assessment and plan: Continue home meds and recommended medicine (5) CVA (cerebral vascular accident): Status: Chronic Assessment and plan: On clopidogrel and statin (6) DVT prophylaxis: Status: Chronic Assessment and plan: On the medical weight heparin Discussed with Dr. Ramirez History of Present Illness History of Present Illness Chief Complaint: AMS Narrative: This 68-year-old female with a PMHx of CVA, stable thoracic aortic aneurysm, schizo-affective disorder, tardive dyskinesia with recent stay where she was discharged to [facility] [place] ([facility]) for psych med adjustment returned today for further medicine adjustment as the patient was unable to communicate with the staff and could not sign legal papers and surrogacy conditions discussed prior to acceptance by [facility] were not met. On 09/20/2024 the patient presented to [facility] for an episode where she was noncompliant med and at the time stroke workup was negative. Today when seen the patient was able to somewhat communicate, repeating that she had to be careful while looking at the left and right.Patient denied headache dizziness chest pain nausea vomiting diarrhea constipation or dysuria. Speech and ideas remain incoherent at times but patient is able to clarify when redirected. Blood work was unremarkable except for sodium at 146 and a BUN at 26. Review of Systems All systems reviewed & are unremarkable except as noted in HPI and below PFSH All Active Problems (Updated 09/27/24 @ 00:04 by BUNNY HOBBS) Other bursal cyst, left shoulder (Chronic) Swelling of joint, shoulder, left (Chronic) Nail dystrophy (Chronic) Edema (Chronic) Cough (Chronic) Contraindication to deep vein thrombosis (DVT) prophylaxis (Chronic) Dysarthria (Chronic) Difficulty comprehending speech (Chronic) PVD (peripheral vascular disease) (Chronic) Malaise (Chronic) Low back pain (Chronic) Elevated serum alkaline phosphatase level (Chronic) Peripheral edema (Chronic) Left knee pain (Chronic) History of total left hip replacement (Chronic 11/11/21) Schizoaffective disorder (Chronic) Chronic diarrhea (Chronic) Diarrhea (Chronic 05/15/12) h/o collagenous colitis 2008 on colonoscopy Edentulous (Chronic 10/17/13) 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 MRSA (methicillin resistant staph aureus) culture positive (Chronic 04/04/13) Hyponatremia (Chronic 03/24/94) Abnormal weight loss (Chronic 06/21/12) Hydradenitis (Chronic) in rt upper thigh region Rash (Chronic) Leg swelling (Chronic) Bilateral knee pain (Chronic) Left knee DJD (Chronic) Most recent injection: 04/12/24; 08/30/22; 05/27/2021; 08/18/20; 03/31/2020 Hematuria (Chronic) Thoracic aortic aneurysm (Chronic) 4.[address] from 09/[address] from 10/2021 Lethargy (Chronic) AMS (altered mental status) (Chronic) Depression (Chronic) Hypokalemia (Chronic) Elevated troponin (Chronic) Accidental overdose (Chronic) Hypokalemia (Chronic) Hypomagnesemia (Chronic) Left shoulder pain (Chronic) Right leg pain (Chronic) Schizoaffective disorder (Chronic) DVT prophylaxis (Chronic) CVA (cerebral vascular accident) (Chronic) Rash (Chronic) Dry skin (Chronic) Status post right hip replacement (Chronic 08/05/21) Medical History (Updated 09/27/24 @ 00:04 by BUNNY HOBBS) Arthritis of left shoulder region DEPO MEDROL 07/12/24 Tardive dyskinesia GERD (gastroesophageal reflux disease) Urge urinary incontinence Osteoarthritis Hypothyroidism Folliculitis Hx of malignant neoplasm of vagina Hx MRSA infection Surgical History (Updated 09/27/24 @ 00:04 by BUNNY HOBBS) History of hip replacement Colonoscopy - MAC (02/14/17) Colonoscopy - MAC (01/12/11) Social History Smoking/Tobacco Use Status: Current-Occasional Tobacco Type: cigarettes Smoking risk assessment performed?: Yes Alcohol Intake: current Alcohol Intake frequency: holidays/special occasions only Drug use: Never Substance use type: does not use Housing: house Current gender identity: female Do you feel safe at home: Yes Do you feel safe in your relationship?: Yes Meds Allergies and Home Medications Allergies Allergy/AdvReac Type Severity Reaction Status Date / Time chlorpheniramine Allergy Unknown Verified 09/20/24 15:08 erythromycin base Allergy Skin Rash Verified 09/20/24 15:08 Penicillins Allergy Rash, Verified 09/20/24 15:08 troubles breathing per pt Home Medications ?Medication ?Instructions ?Recorded ?Confirmed ?Type bupropion HCl 100 mg tablet,12 hr 100 mg PO QAM #30 tabs 04/07/21 09/27/24 Rx sustained-release ascorbate calcium (vitamin C) 500 500 mg PO DAILY 07/15/21 09/27/24 History mg tablet melatonin 3 mg capsule 3 mg PO HS PRN 07/15/21 09/27/24 History Raised Toilet Seat #1 ea 08/03/21 09/27/24 Rx furosemide 20 mg tablet 20 mg PO DAILY PRN edema #30 tabs 09/29/23 09/27/24 Rx levothyroxine 88 mcg tablet 88 mcg PO DAILY #90 tabs 12/05/23 09/27/24 Rx loratadine 10 mg tablet 10 mg PO DAILY #90 tabs 12/05/23 09/27/24 Rx atorvastatin 40 mg tablet 40 mg PO QPM #90 tabs 02/27/24 09/27/24 Rx famotidine 20 mg tablet 20 mg PO DAILY #90 tabs 04/24/24 09/27/24 Rx clopidogrel 75 mg tablet 75 mg PO DAILY #90 tabs 08/13/24 09/27/24 Rx clozapine 100 mg tablet 100 mg PO HS 08/23/24 09/27/24 History acetaminophen 500 mg tablet 1,000 mg (2 x 500 mg) PO TID PRN 09/25/24 09/27/24 Rx Pain (Scale Score 1-3) #90 tabs magnesium chloride 64 mg 64 mg PO DAILY #0 tabs 09/25/24 09/27/24 Rx (magnesium chloride) tablet,delayed release (Mag 64) Exam Narrative Exam Narrative: No acute distress, alert and oriented x 2, no focal deficit, typical dyskinesia of motion of the tongue and eyes but less pronounced than previous, clear lungs unlabored breathing, S1-S2 no murmur abdomen is soft nondistended nontender no CVA tenderness Results Labs 09/27/24 15:10 09/27/24 15:10 Last Vital Signs Temp 36.8 C 09/27/24 13:44 Pulse 78 09/27/24 13:44 Resp 18 09/27/24 13:44 BP 150/88 H 09/27/24 13:44 Pulse Ox 94 09/27/24 13:44 Time Spent Time spent with Patient: >75 minutes Time was spent: preparing to see the patient(eg.review tests), obtaining and/or reviewing separately otained hiistory, ordering medications,tests, procedures, referring, communicating with other health career technical education instructor, indepentently interpreting results, counseling the patient and care coordination
[2024-09-27 15:18] LABS: Abs Immature Grans 0.02 10^3/uL (0.0-0.06); Absolute Basophil Count 0.05 10^3/uL (0.0-0.2); Absolute Eosinophil Count 0.17 10^3/uL (0.0-0.7); Absolute Lymphocyte Count 1.69 10^3/uL (1.2-3.4); Absolute Monocyte Count 0.49 10^3/uL (0.1-0.8); Basophils % 0.7 %; Eosinophils % 2.5 %; HCT 39.8 % (36.0-46.0); HGB 12.9 g/dL (11.2-15.7); Immature Grans % 0.3 %; Lymphocytes % 25.1 %; MCH 30.6 pg (27.0-33.0); MCHC 32.4 % (32.0-36.0); MCV 95 fL (80-95); MPV 10.3 fL (8.0-11.0); Monocytes % 7.3 %; Neutrophils % 64.1 %; Platelet Count 235 10^3/uL (130-400); RBC 4.21 10^6/uL (3.93-5.22); RDW-SD 44.4 fL; WBC 6.72 10^3/uL (4.4-10.8)
[2024-09-27] MEDS: buPROPion-CR 100 MG TABCR PO (15:35)
[2024-09-27] MEDS: Acetaminophen 500 MG TAB 1000 MG PO ×2 (15:35→22:09)
[2024-09-27] MEDS: Enoxaparin 40 MG/0.4 ML SYR SC (15:35)
[2024-09-27 15:39] LABS: Ammonia < 10 umol/L (11-32)
[2024-09-27 15:41] LABS: ALT 77 U/L (14-59); AST 63 U/L (15-37); Albumin 3.6 g/dL (3.4-5.0); Alkaline Phosphatase 144 U/L (46-116); Anion Gap 8.5 mmol/L (3-11); BUN 26 mg/dL (7-18); Bilirubin, Total 0.4 mg/dL (0.2-1.0); CO2 30.5 mmol/L (21.0-32.0); CREATININE 0.9 mg/dL (0.55-1.02); Calcium 9.9 mg/dL (8.5-10.1); Chloride 107 mmol/L (98-107); Estimated GFR 68.77 (mL/min/1.73m2); Glucose 84 mg/dL (74-106); Magnesium 1.9 mg/dL (1.8-2.4); Potassium 3.7 mmol/L (3.5-5.1); Sodium 146 mmol/L (136-145); Total Protein 6.4 g/dL (6.4-8.2)
--- NOTE | 2024-09-27 15:59 | W.PC.ACHO ---
Registration Status: Primary Language: Preferred Language: Medical / Surgical History (Last Updated 05/09/24 @ 11:44 by Alona Alvarez) Arthritis of left shoulder region Tardive dyskinesia GERD (gastroesophageal reflux disease) Urge urinary incontinence Osteoarthritis Hypothyroidism Folliculitis Hx of malignant neoplasm of vagina Hx MRSA infection (Last Reviewed 04/15/24 @ 06:52 by González Barber MD) History of hip replacement Colonoscopy - MAC (02/14/17) Colonoscopy - MAC (01/12/11) Most Recent Vital Signs Temperature 36.8 C 09/27/24 13:44 Pulse 78 09/27/24 13:44 Pulse Rhythm Regular 09/27/24 13:44 Respiratory Rate 18 09/27/24 13:44 Respiratory Effort Normal, Non-Labored 09/27/24 13:44 Respiratory Depth Normal 09/27/24 13:44 Respiratory Pattern Normal 09/27/24 13:44 Blood Pressure 150/88 H 09/27/24 13:44 Pulse Oximetry 94 09/27/24 13:44 Oxygen Delivery Method Room Air 09/27/24 13:44 Oxygen Flow Rate 0 09/27/24 13:44 Allergies chlorpheniramine Allergy (Verified 09/20/24 15:08) Unknown erythromycin base Allergy (Verified 09/20/24 15:08) Skin Rash Penicillins Allergy (Verified 09/20/24 15:08) Rash, troubles breathing per pt Active Medications Generic Name Dose Route Start Last Admin Trade Name Freq PRN Reason Stop Dose Admin Acetaminophen 1,000 mg 09/27/24 15:00 09/27/24 15:35 Acetaminophen 500 Mg Tab PO 1,000 mg Q8H YENNY Administration Bupropion HCl 100 mg 09/27/24 16:00 09/27/24 15:35 Bupropion-Cr 100 Mg Tabcr PO 100 mg Q12H YENNY Administration Enoxaparin Sodium 40 mg 09/27/24 15:00 09/27/24 15:35 Enoxaparin 40 Mg/0.4 Ml Syr SC 40 mg DAILY YENNY Administration IV IV Catheter Type [Right Saline Lock Forearm] IV Catheter Gauge [Right 22 Forearm] Diet Orders Category Date Time Status Regular/Normal [DIET] Nutrition 09/27/24 Lunch Active Diagnostics 09/27/24 Range/Units 15:10 WBC 6.72 (4.4-10.8) 10^3/uL RBC 4.21 (3.93-5.22) 10^6/uL Hgb 12.9 (11.2-15.7) g/dL Hct 39.8 (36.0-46.0) % MCV 95 (80-95) fL MCH 30.6 (27.0-33.0) pg MCHC 32.4 (32.0-36.0) % RDW 13.0 (11.7-14.6) % Plt Count 235 (130-400) 10^3/uL MPV 10.3 (8.0-11.0) fL Immature Gran % 0.3 % Neutrophils % 64.1 % Lymphocytes % 25.1 % Monocytes % 7.3 % Eosinophils % 2.5 % Basophils % 0.7 % Nucleated RBC % 0.0 (0.0-0.3) % Absolute Neutrophils 4.30 (1.2-6.7) 10^3/uL Absolute Lymphocytes 1.69 (1.2-3.4) 10^3/uL Absolute Monocytes 0.49 (0.1-0.8) 10^3/uL Absolute Eosinophils 0.17 (0.0-0.7) 10^3/uL Absolute Basophils 0.05 (0.0-0.2) 10^3/uL Sodium 146 H (136-145) mmol/L Potassium 3.7 (3.5-5.1) mmol/L Chloride 107 (98-107) mmol/L Carbon Dioxide 30.5 (21.0-32.0) mmol/L Anion Gap 8.5 (3-11) mmol/L BUN 26 H (7-18) mg/dL Creatinine 0.9 (0.55-1.02) mg/dL Est GFR (CKD-EPI 2020) 68.77 (mL/min/1.73m2) Glucose 84 (74-106) mg/dL Calcium 9.9 (8.5-10.1) mg/dL Magnesium 1.9 (1.8-2.4) mg/dL Total Bilirubin 0.4 (0.2-1.0) mg/dL AST 63 H (15-37) U/L ALT 77 H (14-59) U/L Alkaline Phosphatase 144 H (46-116) U/L Ammonia < 10 L (11-32) umol/L Total Protein 6.4 (6.4-8.2) g/dL Albumin 3.6 (3.4-5.0) g/dL Intake and Output - 24 Hour Total 09/27/24 thru 09/27/24 14:57 Weight 63.4 kg Other: Urine Color Pale Yellow Urine Appearance Clear Urine Odor Normal Comment pt voided into toilet, not measurable. Falls Risk Assessment History of Falls Previous History 09/27/24 13:44 Contributing Factors Confusion,Impairments 09/27/24 13:44 Ambulatory Aids Uses ambulatory device 09/27/24 13:44 Tubes/Lines None 09/27/24 13:44 Gait Evaluation W/no contributing factors 09/27/24 13:44 Cognition Cognitive impairment 09/27/24 13:44 Fall Total Score 61 09/27/24 13:44 Level of Risk High Risk 09/27/24 13:44 v v v v v v v v v Sending and/or Receiving Nurses: Please use comment section below to note any information pertinent to the patient hand-off not included above. Information / Comments: Pt came from [facility] after not signing proper paperwork to be able to stay there. Pt is in room 227. Report received from: [place] [place] [facility] at 1326
--- NOTE | 2024-09-27 19:43 | INITIAL_ITS ---
Date of service: 09/27/24 Time of Service: 19:43 Care Management Initial Assmt Initial Assessment Reason for Hospitalization: AMS Functional Status/Living Situation Patient Presentation: Yaima was transferred to [facility] yesterday for medication adjustment. Unfortunately, Ramsey baca Justina did not feel that Yamia had the capacity to sign admission paperwork, therefore she was returned to [facility] today for further treatment. Ramsey baca Tyler will require that Yaima has a medical decision maker appointed prior to admission in the future. Yaima has an advanced directive naming her sister as her HCA, but her sister has . CM reached out to her [employer] insurance case manager, Keli today, to inquire about seeking guardianship; Keli stated that [employer] does not file for guardianship for patients, and she stated that she does not know if Yaima will meet criteria, as at her baseline she is able to live alone, and functions fairly well in the community. CM contacted [facility], and left a message. [facility], did return the call when CM was not in the office; CM will continue to get in contact with [employer]. CM contacted the office of public guardianship, and left a message, requesting additional information regarding guardianship requirements. Yaima was sitting up in her chair when CM met with her. She was alert and conversational, although at times the conversation was difficult to follow; she appears to be at her baseline cognitively. She has been taking her home medications since her admission on 09/20/24. CM will inquire about the [facility] care bed as an option for a step down facility, where Yaima can have some additional support and observation on her medication regiment prior to returning home. Yaima discussed the possibility of moving into assisted living in the community, which would be appropriate. CM will inform her community counter caser of her interest so they can help support her with this in the community. CM will continue to follow. Town of Residence: [facility] Resides with: Alone Caregiver/Guardian: [employer] insurance case managerArgelia [employer] insurance case managerKeli Employment Status: Retired Instrumental Activities of Daily Living (ADLs): Independent Medications Medication Management: Issues/Barriers (Yaima stopped taking her medication at home which led to this admission) with Instructions/Directions Advance Directives Advance Directives: Do you have an Advance Directive: Y 04/14/21 15:20 AD On File at [facility]: Y 04/14/21 15:20 Date Asked 07/25/24 07/25/24 13:34 AD Date Reviewed 09/27/24 09/27/24 11:40 COLST On File at [facility] No 08/14/22 13:52 COLST Date Scanned Code Status Resuscitation Status Full Code Insurance Coverage/Financial Issues Insurance: [facility] financial assistance 100% Care Team Visit Care Team Role Provider Type Dillon Scott MD Primary Care Provider [facility] STAFF PHYSICIAN Cas Ramirez Admit Provider [facility] STAFF PHYSICIAN Attending Provider Discharge Potential Discharge Needs: PCP F/U Appt Anticipated Barriers to Discharge: Medical Status Patient/Family Education Needs: Review discharge instructions, discuss Ask Me Three Transportation: [facility] Transportation: Private vechicle Plan: Yaima may return home vs discharge to the [facility] [place] if eligible and available. If she continues to require inpatient psychiatric treatment for medication management, she will need to have a medical decision maker (HCA vs Guardian) prior to transfer. If discharged to the community, Yaima will likely transport via [facility] private vehicle. She will follow up with her PCP and discharge plan of care. CM will continue to follow. Social Determinants of Health Screening Social Determinants of health last assessed in clinic: 09/27/24 Will the Patient Participate in the Screening?: Yes Do you worry about having a steady place to live?: no Problems where you live: no known problems In the past 12 months, have you had to go without electric, gas, oil or water in your home?: no 1. Within the past 12 months, we worried whether our food would run out before we got money to buy more.: Don't know/refused 2. Within the past 12 months, the food we bought just didn't last and we didn't have money to get more.: Don't know/refused Has lack of transportation kept you from medical appointments or from doing things needed for daily living?: no Has anyone in your life made you feel unsafe or unsupported?: no How hard is it for you to pay for the very basics like food, housing, medical care, and heating? Would you say it is:: Not hard at all Do you want help finding or keeping work or a job?: I do not need or want help If for any reason you need help with day-to-day activities such as bathing, preparing meals, shopping, managing finances, etc., do you get the help you need?: I get all the help I need How often do you feel lonely or isolated from those around you?: Sometimes Do you speak a language other than Hungarian at home?: No Comments: sister helps check on patient Health Related Social Needs Health related social needs: feeling lonely/isolated (Z60.8) Health related social needs details: sister helps at home PFSH All Active Problems (Updated 09/27/24 @ 00:04 by BUNNY HOBBS) Other bursal cyst, left shoulder (Chronic) Swelling of joint, shoulder, left (Chronic) Nail dystrophy (Chronic) Edema (Chronic) Cough (Chronic) Contraindication to deep vein thrombosis (DVT) prophylaxis (Chronic) Dysarthria (Chronic) Difficulty comprehending speech (Chronic) PVD (peripheral vascular disease) (Chronic) Malaise (Chronic) Low back pain (Chronic) Elevated serum alkaline phosphatase level (Chronic) Peripheral edema (Chronic) Left knee pain (Chronic) History of total left hip replacement (Chronic 11/11/21) Schizoaffective disorder (Chronic) Chronic diarrhea (Chronic) Diarrhea (Chronic 05/15/12) h/o collagenous colitis 2008 on colonoscopy Edentulous (Chronic 10/17/13) 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 MRSA (methicillin resistant staph aureus) culture positive (Chronic 04/04/13) Hyponatremia (Chronic 03/24/94) Abnormal weight loss (Chronic 06/21/12) Hydradenitis (Chronic) in rt upper thigh region Rash (Chronic) Leg swelling (Chronic) Bilateral knee pain (Chronic) Left knee DJD (Chronic) Most recent injection: 04/12/24; 08/30/22; 05/27/2021; 08/18/20; 03/31/2020 Hematuria (Chronic) Thoracic aortic aneurysm (Chronic) 4.[address] from 09/[address] from 10/2021 Lethargy (Chronic) AMS (altered mental status) (Chronic) Depression (Chronic) Hypokalemia (Chronic) Elevated troponin (Chronic) Accidental overdose (Chronic) Hypokalemia (Chronic) Hypomagnesemia (Chronic) Left shoulder pain (Chronic) Right leg pain (Chronic) Schizoaffective disorder (Chronic) DVT prophylaxis (Chronic) CVA (cerebral vascular accident) (Chronic) Rash (Chronic) Dry skin (Chronic) Status post right hip replacement (Chronic 08/05/21) Medical History (Updated 09/27/24 @ 00:04 by BUNNY HOBBS) Arthritis of left shoulder region DEPO MEDROL 07/12/24 Tardive dyskinesia GERD (gastroesophageal reflux disease) Urge urinary incontinence Osteoarthritis Hypothyroidism Folliculitis Hx of malignant neoplasm of vagina Hx MRSA infection Surgical History (Updated 09/27/24 @ 00:04 by BUNNY HOBBS) History of hip replacement Colonoscopy - MAC (02/14/17) Colonoscopy - MAC (01/12/11) Social History Smoking/Tobacco Use Status: Current-Occasional Tobacco Type: cigarettes Smoking risk assessment performed?: Yes Alcohol Intake: current Alcohol Intake frequency: holidays/special occasions only Drug use: Never Substance use type: does not use Housing: house Current gender identity: female Do you feel safe at home: Yes Do you feel safe in your relationship?: Yes Readmission Within the Past 30 Days Yes or No: Yes Date of First Admission Date of 1st Admission: 09/20/24 Date of this Admission Date of Admission: 09/27/24 This admission was: Direct Admit ED visits How many ED visits in the past 12 months: 2 Assessment for Readmission Summary of readmission circumstances, based upon interviews: Yaima was transferred to [facility] for inpatient psychiatric treatment, with a goal of medication management (no SI/HI). She returned in transfer back one day later, as she was not able to sign admission paperwork, per [facility] requirements. She has been taking her medications as prescribed since her admission on 09/20/24, and is alert and engaging in conversation. She may discharge home with support vs [facility] care bed. If she continues to require inpatient psychiatric stabilization, she will need a medical decision maker (HCA) prior to returning to [facility]. CM will continue to follow.
[2024-09-27] MEDS: Atorvastatin 40 MG TAB PO (22:09)
[2024-09-27] MEDS: Melatonin 3 MG TAB PO (22:09)
[2024-09-27] MEDS: Normal Saline Flush 10 ML SYR IVP (22:10)
[2024-09-27 22:58] VITALS: BP 135/78; PULSE 74; RESP 20; TEMP 36.1; O2SAT 95
[2024-09-28 02:44] VITALS: BP 140/78; PULSE 66; RESP 12; TEMP 37.2; O2SAT 95
[2024-09-28 02:49] LABS: Bilirubin Negative (Negative); Blood Trace-intact (Negative); Clarity Sl Cloudy (Clear); Glucose Negative (Negative); Ketones Negative (Negative); Leukocyte Esterase Large (Negative); Nitrite Negative (Negative); Specific Gravity 1.025 (1.005-1.025); Urobilinogen 0.2 mg/dL (Up to 0.2); pH 6.5 (5-8)
[2024-09-28 02:54] LABS: Bacteria Few HPF (Negative); C & S Indicated? Yes; Casts Negative LPF (Negative); Crystals Negative HPF (Negative); Epithelial Cells Few HPF (Negative); Mucus Negative (Negative); RBC 0-2 HPF (0-2); WBC >50 HPF (0-5)
[2024-09-28] MEDS: Levothyroxine 88 MCG TAB PO (06:04)
--- NOTE | 2024-09-28 10:04 | CMDISCH_ITS ---
Date of service: 09/28/24 Time of Service: 14:40 LACE Index Scoring Tool Questions: Length of Stay (in days): 1 Was the patient admitted via the E.D.?: No Comorbidities: Cerebrovascular Disease and PVD E.D. Visits: 1 Answers: Total Score: 4 Risk of Readmission: Low Risk Care Management Discharge Plan Reason for Hospitalization: AMS Discharge Plan: Yaima is being discharged to the Care Bed with resumption of her community supports and New [facility] RN/PT/OT services. She is being transported via private vehicle with her [facility] Management Services Technician (Argelia.) Yaima will follow up with her Community providers and discharge plan of care as instructed. Patient/Family Education Needs: Review discharge instructions and plan to follow up with community providers. Discuss ask me three. Services Needed at Discharge: Home Health Care Services SDOH Health Related Social Needs: Health related social needs feeling lonely/isolated (Z 60.8) Health related social needs details sister helps at ho me Health related social needs details: sister helps at home
--- NOTE | 2024-09-28 11:07 | NUR.NOTE ---
Nursing Note: Per primary nurse Cary, since pt is still sleeping, meds marked not given and Cary will have them re timed when pt is awake
[2024-09-28] MEDS: buPROPion-CR 100 MG TABCR PO (12:58)
[2024-09-28] MEDS: Clopidogrel 75 MG TAB PO (12:58)
--- NOTE | 2024-09-28 14:12 | DSE_ITS ---
Date of service: 09/28/24 Time of Service: 14:12 DS: Diagnosis Discharge Diagnosis (1) Schizoaffective disorder: Status: Chronic (2) Hypothyroidism: Status: Chronic (3) Arthritis of left shoulder region: (4) Tardive dyskinesia: (5) CVA (cerebral vascular accident): Status: Chronic (6) DVT prophylaxis: Status: Chronic Discharge Plan Disposition Patient Disposition: Home W/Home Health Services Condition: Improving Discharge Details Reason For Visit: AMS Admit Date/Time: 09/27/24 13:28 Admit Provider: Cas Ramirez Attending Provider: Cas Ramirez Primary Care Provider: Dillon Scott Hospital Course Hospital Course: This 69-year-old female with a PMHx of CVA, stable thoracic aortic aneurysm, schizo-affective disorder, tardive dyskinesia with recent stay where she was discharged to [facility] for psych med adjustment returned today for further medicine adjustment as the patient was unable to communicate with the staff and could not sign legal papers and surrogacy conditions discussed prior to acceptance by [facility] were not met. On 09/20/2024 the patient presented to [facility] for an episode where she was noncompliant with medicines and at the time stroke workup was negative. A psychiatric consultation was completed. When seen the patient was able to somewhat communicate but still hesitant to trust stating she had to be careful with what she said. Speech and ideas remained incoherent at times but patient is able to clarify when redirected. Medicines recommendation at discharged from [facility] implemented. The patient is hemodynamically stable and will be discharged home with home health physical therapy, occupational therapy, nursing for medicine compliance. Follow-up with PCP within 7 days of discharge please. Discussed with Dr. Ramirez Home Meds and New Rx's Prescriptions: New acetaminophen 500 mg Tablet 1,000 mg PO Q8H Qty: 30 0RF Continued ascorbate calcium (vitamin C) 500 mg tablet 500 mg PO DAILY melatonin 3 mg capsule 3 mg PO HS PRN furosemide 20 mg tablet 20 mg PO DAILY PRN (Reason: edema) Qty: 30 0RF clozapine 100 mg tablet 100 mg PO HS (DME) Raised Toilet Seat See Rx Instructions .ROUTE .MEDSUPPLY Qty: 1 0RF Rx Instructions: As directed levothyroxine 88 mcg tablet 88 mcg PO DAILY Qty: 90 3RF loratadine 10 mg tablet 10 mg PO DAILY Qty: 90 4RF atorvastatin 40 mg tablet 40 mg PO QPM Qty: 90 3RF famotidine 20 mg tablet 20 mg PO DAILY Qty: 90 3RF clopidogrel 75 mg tablet 75 mg PO DAILY Qty: 90 3RF bupropion HCl 100 mg Tablet Sustained-Release 12 Hr 100 mg PO QAM Qty: 30 0RF magnesium chloride [Mag 64] 64 mg Tablet,Delayed Release (Dr/Ec) 64 mg PO DAILY Qty: 0 0RF Discontinued acetaminophen 500 mg tablet 1,000 mg PO TID PRN (Reason: Pain (Scale Score 1-3)) Qty: 90 3RF Discharge Instructions Referrals: Dillon Scott MD [Primary Care Provider] - (Follow-up within 7 days of discharge) Activity:: Activity as Tolerated Equipment/Supplies:: Walker Diet:: heart healthy Discharge Orders Discharge Orders: Discharge Order (Routine); Ordered 09/28/24 Ordered By: Yessi Pak DS: Summary Time Spent with Patient providing and/or coordinating discharge services: Greater than 30 minutes Status at Discharge Functional status at discharge: uses cane/walker Overall status at discharge: patient is progressing back to baseline Mental Status: mental status grossly normal Speech and Movement: other Mood: anxious mood Affect: anxious affect and other Quality:SDOH Health Related Social Needs: Health related social needs feeling lonely/isolated (Z 60.8) Health related social needs details sister helps at [facility] Health related social needs details: sister helps at home Exam Narrative Exam Narrative: No acute distress, alert and oriented x 2, no focal deficit, typical dyskinesia of motion of the tongue and eyes but less pronounced than previous, clear lungs unlabored breathing, S1-S2 no murmur abdomen is soft nondistended nontender no CVA tenderness, limited thought process and insight- RASS 0 Psych Mental Status: mental status grossly normal Speech and Movement: other Mood: anxious mood Affect: anxious affect and other DS: Data Vitals/I&O Vitals and I&O: Vital Signs Temperature 37.2 C 09/28/24 02:44 Temperature Source Temporal Artery Scan 09/28/24 02:44 Pulse 66 09/28/24 02:44 Pulse Rhythm Regular 09/27/24 13:44 Respiratory Rate 12 09/28/24 02:44 Respiratory Effort Normal, Non-Labored 09/27/24 13:44 Respiratory Depth Normal 09/27/24 13:44 Respiratory Pattern Normal 09/27/24 13:44 Blood Pressure 140/78 09/28/24 02:44 Blood Pressure Mean 98 09/28/24 02:44 Pulse Oximetry 95 09/28/24 02:44 Oxygen Delivery Method Room Air 09/28/24 02:44 Oxygen Flow Rate 0 09/28/24 02:44 Pain Level 0 09/27/24 22:58 Intake & Output 09/27/24 09/28/24 09/28/24 23:59 11:59 23:59 Intake Total 135 / 135 400 / 400 Output Total 200 / 500 300 / 500 Balance 135 / 135 200 / -100 -300 / -100 Weight 63.4 kg Intake: IV Oral 125 / 125 400 / 400 Output: Urine 200 / 500 300 / 500 Other: Urine Color Pale Light Skylar Yellow Yellow Urine Appearance Clear Cloudy Cloudy Urine Odor Normal Normal Comment pt voided into toilet, not measurable. Pt reports burning with void. Sample collected and sent to lab by FEMI Lopez. Unmeasured void Data Completed and Pending Labs on day of discharge: Labs from last 24 hours 09/28/24 09/27/24 02:44 15:10 WBC 6.72 RBC 4.21 Hgb 12.9 Hct 39.8 MCV 95 MCH 30.6 MCHC 32.4 RDW 13.0 Plt Count 235 MPV 10.3 Immature Gran % 0.3 Neutrophils % 64.1 Lymphocytes % 25.1 Monocytes % 7.3 Eosinophils % 2.5 Basophils % 0.7 Nucleated RBC % 0.0 Absolute Neutrophils 4.30 Absolute Lymphocytes 1.69 Absolute Monocytes 0.49 Absolute Eosinophils 0.17 Absolute Basophils 0.05 Sodium 146 H Potassium 3.7 Chloride 107 Carbon Dioxide 30.5 Anion Gap 8.5 BUN 26 H Creatinine 0.9 Est GFR (CKD-EPI 2020) 68.77 Glucose 84 Calcium 9.9 Magnesium 1.9 Total Bilirubin 0.4 AST 63 H ALT 77 H Alkaline Phosphatase 144 H Ammonia < 10 L Total Protein 6.4 Albumin 3.6 Urine Color Yellow Urine Clarity Sl Cloudy Urine pH 6.5 Ur Specific [place] 1.025 Urine Protein 30 H Urine Ketones Negative Urine Blood Trace-intact H Urine Nitrite Negative Urine Bilirubin Negative Urine Urobilinogen 0.2 Ur Leukocyte Esterase Large H Urine RBC 0-2 Urine WBC >50 H Ur Epithelial Cells Few Urine Crystals Negative Urine Bacteria Few Urine Casts Negative Urine Mucus Negative Ur Culture Indicated? Yes Urine Glucose Negative 09/28/24 02:44 Urine - Reflex from Ua Urine Culture - Pending Preliminary micro results at discharge 09/28/24 02:44 Urine - Reflex from Ua Urine Culture - Pending PFSH All Active Problems (Updated 09/27/24 @ 00:04 by BUNNY HOBBS) Other bursal cyst, left shoulder (Chronic) Swelling of joint, shoulder, left (Chronic) Nail dystrophy (Chronic) Edema (Chronic) Cough (Chronic) Contraindication to deep vein thrombosis (DVT) prophylaxis (Chronic) Dysarthria (Chronic) Difficulty comprehending speech (Chronic) PVD (peripheral vascular disease) (Chronic) Malaise (Chronic) Low back pain (Chronic) Elevated serum alkaline phosphatase level (Chronic) Peripheral edema (Chronic) Left knee pain (Chronic) History of total left hip replacement (Chronic 11/11/21) Schizoaffective disorder (Chronic) Chronic diarrhea (Chronic) Diarrhea (Chronic 05/15/12) h/o collagenous colitis 2008 on colonoscopy Edentulous (Chronic 10/17/13) 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 MRSA (methicillin resistant staph aureus) culture positive (Chronic 04/04/13) Hyponatremia (Chronic 03/24/94) Abnormal weight loss (Chronic 06/21/12) Hydradenitis (Chronic) in rt upper thigh region Rash (Chronic) Leg swelling (Chronic) Bilateral knee pain (Chronic) Left knee DJD (Chronic) Most recent injection: 04/12/24; 08/30/22; 05/27/2021; 08/18/20; 03/31/2020 Hematuria (Chronic) Thoracic aortic aneurysm (Chronic) 4.[address] from 09/[address] from 10/2021 Lethargy (Chronic) AMS (altered mental status) (Chronic) Depression (Chronic) Hypokalemia (Chronic) Elevated troponin (Chronic) Accidental overdose (Chronic) Hypokalemia (Chronic) Hypomagnesemia (Chronic) Left shoulder pain (Chronic) Right leg pain (Chronic) Schizoaffective disorder (Chronic) DVT prophylaxis (Chronic) CVA (cerebral vascular accident) (Chronic) Rash (Chronic) Dry skin (Chronic) Status post right hip replacement (Chronic 08/05/21) Medical History (Updated 09/27/24 @ 00:04 by BUNNY HOBBS) Arthritis of left shoulder region DEPO MEDROL 07/12/24 Tardive dyskinesia GERD (gastroesophageal reflux disease) Urge urinary incontinence Osteoarthritis Hypothyroidism Folliculitis Hx of malignant neoplasm of vagina Hx MRSA infection Surgical History (Updated 09/27/24 @ 00:04 by BUNNY HOBBS) History of hip replacement Colonoscopy - [facility] (02/14/17) Colonoscopy - [facility] (01/12/11) Social History Smoking/Tobacco Use Status: Current-Occasional Tobacco Type: cigarettes Smoking risk assessment performed?: Yes Alcohol Intake: current Alcohol Intake frequency: holidays/special occasions only Drug use: Never Substance use type: does not use Housing: house Current gender identity: female Do you feel safe at home: Yes Do you feel safe in your relationship?: Yes Time Spent with Patient Time Spent with Patient: 70-84 minutes4 Time was spent: preparing to see the patient(eg.review tests), obtaining and/or reviewing separately otained hiistory, ordering medications,tests, procedures, referring, communicating with other health medicare sales representative, indepentently interpreting results, counseling the patient and care coordination
--- NOTE | 2024-09-28 14:27 | PDOC.HHF2F_ITS ---
Home Health Referral Home Health Orders Clinical synopsis of why skilled professionals are needed: Hospital Course: This 69-year-old female with a PMHx of CVA, stable thoracic aortic aneurysm, schizo-affective disorder, tardive dyskinesia with recent stay where she was discharged to [facility]) for psych med adjustment returned today for further medicine adjustment as the patient was unable to communicate with the staff and could not sign legal papers and surrogacy conditions discussed prior to acceptance by [facility] were not met. On 09/20/2024 the patient presented to [facility] for an episode where she was noncompliant with medicines and at the time stroke workup was negative. A psychiatric consultation was completed. When seen the patient was able to somewhat communicate but still hesitant to trust stating she had to be careful with what she said. Speech and ideas remained incoherent at times but patient is able to clarify when redirected. Medicines recommendation at discharged from [facility] implemented. The patient is hemodynamically stable and will be discharged home with home health physical therapy, occupational therapy, nursing for medicine compliance. Follow-up with PCP within 7 days of discharge please. Discussed with Dr. Ramirez Registered Nurse: Check all that apply Instruct on new or changed medication(s)/assess compliance: Ordered Physical Therapist: Check all that apply Increase strength & endurance for safe mobility at home: Ordered To design/establish home maintenance program: Ordered Occupational Therapist: Evaluate and treat for patient unable to perform ADL/IADL/self-care: Ordered Upper extremity strengthening, range and motion: Ordered Paramedic Instructor: Assist with community resources: Ordered Assist with termite control servicer care planning: Ordered Home Bound Status Requires the aid of supportive device (check all that apply): Walker Patient has a condition such that leaving home is medically contraindicated (Describe): Schizoaffective disorder Encounter Date and Reason: I certify that a FTF encounter for this patient was performed on September 28, 2024 and that such encounter was related to the primary reason the patient requires home health services. The encounter was conducted in the following manner: * By me as the certifying physician, [employer] FINISHER, PA or * By an inpatient physician, [employer] FINISHER or PA during an inpatient stay who communicated findings to me, Certification And Authentication I certify that I composed the above information based on my clinical judgment relating to this patient's medical condition and, if applicable, clinical findings communicated to me by the NPP or inpatient physician who performed the FTF encounter. Name of Provider that will be monitoring home health services: Dillon Scott
--- NOTE | 2024-09-28 15:10 | CHAPLAIN ---
Yaima was transferred from here to [facility] on Tuesday, and then back here (yesterday) as the [facility] staff don't believe that Yaima is able to make decisions for herself about her care and medication. Her sister is listed on her Advance Directive as Yaima's health care agent, but her sister has . Care Management is working with Yaima's community care team (from [place] [facility] and [facility]) to investigate if there is a need for guardianship. Today when I visited with Yaima, she was clear in giving short, one-work answers and statements. Other responses were more difficult to understand. She was in the recliner and asked me if they would be admitting another patient into the bed in her room. I will continue to visit.
== END 2024-09-28 15:15 | disposition home health service (06) | DRG 885 ==
PROVIDERS: Nurse Practitioner Acute Care; Admitting Provider Family Medicine; PCP Family Medicine; Visit Provider Family Medicine
DX: F25.9 Schizoaffective disorder, unspecified (principal); E03.9 Hypothyroidism, unspecified; G24.01 Drug induced subacute dyskinesia; M19.012 Primary osteoarthritis, left shoulder; I71.20 Thoracic aortic aneurysm, without rupture, unspecified; Z91.148 Patient's other noncompliance with medication regimen for other reason; M71.312 Other bursal cyst, left shoulder; L60.3 Nail dystrophy; I73.9 Peripheral vascular disease, unspecified; R05.3 Chronic cough; R47.1 Dysarthria and anarthria; M54.50 Low back pain, unspecified; R60.0 Localized edema; K52.831 Collagenous colitis; G25.61 Drug induced tics; T43.595A Adverse effect of other antipsychotics and neuroleptics, initial encounter; K21.9 Gastro-esophageal reflux disease without esophagitis; F17.210 Nicotine dependence, cigarettes, uncomplicated; Z85.44 Personal history of malignant neoplasm of other female genital organs; Z79.02 Long term (current) use of antithrombotics/antiplatelets; Z96.643 Presence of artificial hip joint, bilateral; Z86.73 Personal history of transient ischemic attack (TIA), and cerebral infarction without residual deficits
CPT/HCPCS: 00123; 36415; 80053; 87077; J1650; 81003; 81015; 82140; 83735; 85025; 87086; 87186; 99223; 99239

== ENCOUNTER → 2024-10-15 13:23 | Outpatient (BNVA) | payer MEDICARE, SELFPAY | PROVIDERS: PCP Family Medicine; Referring Provider Family Medicine; Visit Provider Student in an Organized Health Care Education/Training Program | DX: M17.12 Unilateral primary osteoarthritis, left knee (principal); M21.062 Valgus deformity, not elsewhere classified, left knee; M19.012 Primary osteoarthritis, left shoulder; M71.312 Other bursal cyst, left shoulder; M25.412 Effusion, left shoulder | CPT/HCPCS: 20610 ×2; J1010 ==

== ENCOUNTER 2024-10-25 17:51 | Outpatient (REF) | payer MEDICARE, SELFPAY ==
[2024-10-25 19:47] LABS: Abs Immature Grans 0.03 10^3/uL (0.0-0.06); HCT 40.0 % (36.0-46.0); HGB 12.6 g/dL (11.2-15.7); Immature Grans % 0.3 %; MCH 30.1 pg (27.0-33.0); MCHC 31.5 % (32.0-36.0); MCV 96 fL (80-95); MPV 10.0 fL (8.0-11.0); Platelet Count 257 10^3/uL (130-400); RBC 4.19 10^6/uL (3.93-5.22); RDW 13.3 % (11.7-14.6); RDW-SD 46.9 fL; WBC 8.78 10^3/uL (4.4-10.8)
[2024-10-25 19:57] LABS: ALT 27 U/L (14-59); AST 15 U/L (15-37); Albumin 3.4 g/dL (3.4-5.0); Alkaline Phosphatase 167 U/L (46-116); Anion Gap 7.2 mmol/L (3-11); BUN 14 mg/dL (7-18); Bilirubin, Total 0.3 mg/dL (0.2-1.0); CO2 28.8 mmol/L (21.0-32.0); Calcium 9.2 mg/dL (8.5-10.1); Chloride 103 mmol/L (98-107); Estimated GFR 68.77 (mL/min/1.73m2); Glucose 92 mg/dL (74-106); Potassium 4.1 mmol/L (3.5-5.1); Sodium 139 mmol/L (136-145); Total Protein 5.9 g/dL (6.4-8.2)
== END 2024-10-25 17:52 | disposition home or self-care (01) ==
LOC: LBN 17:51
PROVIDERS: PCP Family Medicine; Visit Provider Nurse Practitioner Gerontology
DX: D63.1 Anemia in chronic kidney disease (principal)
CPT/HCPCS: 80053; 85025

== ENCOUNTER 2024-11-26 18:03 | Outpatient (REF) | payer MEDICARE, SELFPAY ==
[2024-11-26 18:10] LABS: Abs Immature Grans 0.03 10^3/uL (0.0-0.06); HCT 38.6 % (36.0-46.0); HGB 12.7 g/dL (11.2-15.7); Immature Grans % 0.3 %; MCH 30.9 pg (27.0-33.0); MCHC 32.9 % (32.0-36.0); MCV 94 fL (80-95); MPV 10.0 fL (8.0-11.0); Platelet Count 268 10^3/uL (130-400); RBC 4.11 10^6/uL (3.93-5.22); RDW 13.5 % (11.7-14.6); RDW-SD 46.2 fL; WBC 10.04 10^3/uL (4.4-10.8)
== END 2024-11-26 18:04 | disposition home or self-care (01) ==
LOC: LBN 18:03
PROVIDERS: PCP Family Medicine; Visit Provider Nurse Practitioner Gerontology
DX: D63.1 Anemia in chronic kidney disease (principal)
CPT/HCPCS: 85025

== ENCOUNTER 2024-12-19 17:47 | Outpatient (REF) | payer MEDICARE, SELFPAY ==
[2024-12-19 18:16] LABS: Abs Immature Grans 0.02 10^3/uL (0.0-0.06); HCT 39.5 % (36.0-46.0); HGB 12.8 g/dL (11.2-15.7); Immature Grans % 0.2 %; MCH 31.0 pg (27.0-33.0); MCHC 32.4 % (32.0-36.0); MCV 96 fL (80-95); MPV 9.8 fL (8.0-11.0); Platelet Count 289 10^3/uL (130-400); RBC 4.13 10^6/uL (3.93-5.22); RDW 13.9 % (11.7-14.6); RDW-SD 49.1 fL; WBC 8.40 10^3/uL (4.4-10.8)
[2024-12-19 18:29] LABS: ALT 39 U/L (14-59); AST 21 U/L (15-37); Albumin 3.8 g/dL (3.4-5.0); Alkaline Phosphatase 156 U/L (46-116); Anion Gap 7.9 mmol/L (3-11); BUN 18 mg/dL (7-18); Bilirubin, Total 0.4 mg/dL (0.2-1.0); CO2 28.1 mmol/L (21.0-32.0); Calcium 9.5 mg/dL (8.5-10.1); Chloride 105 mmol/L (98-107); Estimated GFR 60.61 (mL/min/1.73m2); Glucose 138 mg/dL (74-106); Magnesium 2.0 mg/dL (1.8-2.4); Potassium 4.0 mmol/L (3.5-5.1); Sodium 141 mmol/L (136-145); Total Protein 6.2 g/dL (6.4-8.2)
== END 2024-12-19 17:48 | disposition home or self-care (01) ==
LOC: LBN 17:47
PROVIDERS: PCP Family Medicine; Visit Provider Nurse Practitioner Gerontology
DX: E87.8 Other disorders of electrolyte and fluid balance, not elsewhere classified (principal); D63.1 Anemia in chronic kidney disease; E83.42 Hypomagnesemia
CPT/HCPCS: 80053; 83735; 85025

== ENCOUNTER 2025-01-21 16:15 | Outpatient (REF) | payer MEDICARE, SELFPAY ==
[2025-01-21 16:11] LABS: Abs Immature Grans 0.04 10^3/uL (0.0-0.06); HCT 37.4 % (36.0-46.0); HGB 11.9 g/dL (11.2-15.7); Immature Grans % 0.4 %; MCH 30.6 pg (27.0-33.0); MCHC 31.8 % (32.0-36.0); MCV 96 fL (80-95); MPV 9.5 fL (8.0-11.0); Platelet Count 309 10^3/uL (130-400); RBC 3.89 10^6/uL (3.93-5.22); RDW 13.5 % (11.7-14.6); RDW-SD 48.0 fL; WBC 9.20 10^3/uL (4.4-10.8)
[2025-01-21 16:54] LABS: ALT 24 U/L (14-59); AST 15 U/L (15-37); Albumin 2.9 g/dL (3.4-5.0); Alkaline Phosphatase 173 U/L (46-116); Anion Gap 9.5 mmol/L (3-11); BUN 20 mg/dL (7-18); Bilirubin, Total 0.3 mg/dL (0.2-1.0); CO2 27.5 mmol/L (21.0-32.0); Calcium 9.0 mg/dL (8.5-10.1); Chloride 103 mmol/L (98-107); Estimated GFR 68.77 (mL/min/1.73m2); Glucose 124 mg/dL (74-106); Potassium 4.3 mmol/L (3.5-5.1); Sodium 140 mmol/L (136-145); Total Protein 5.8 g/dL (6.4-8.2)
== END 2025-01-21 16:16 | disposition home or self-care (01) ==
LOC: LBN 16:15
PROVIDERS: PCP Family Medicine; Visit Provider Nurse Practitioner Gerontology
DX: D63.1 Anemia in chronic kidney disease (principal)
CPT/HCPCS: 80053; 85025

== ENCOUNTER 2025-02-04 21:04 | Outpatient (REF) | payer MEDICARE, SELFPAY ==
[2025-02-04 18:47] LABS: Abs Immature Grans 0.01 10^3/uL (0.0-0.06); HCT 34.9 % (36.0-46.0); HGB 11.3 g/dL (11.2-15.7); Immature Grans % 0.1 %; MCH 31.2 pg (27.0-33.0); MCHC 32.4 % (32.0-36.0); MCV 96 fL (80-95); MPV 10.0 fL (8.0-11.0); Platelet Count 296 10^3/uL (130-400); RBC 3.62 10^6/uL (3.93-5.22); RDW 13.4 % (11.7-14.6); RDW-SD 48.1 fL; WBC 7.15 10^3/uL (4.4-10.8)
[2025-02-04 19:46] LABS: ALT 25 U/L (14-59); AST 19 U/L (15-37); Albumin 3.2 g/dL (3.4-5.0); Alkaline Phosphatase 170 U/L (46-116); Anion Gap 8.3 mmol/L (3-11); BUN 18 mg/dL (7-18); Bilirubin, Total 0.4 mg/dL (0.2-1.0); CO2 27.7 mmol/L (21.0-32.0); Calcium 9.1 mg/dL (8.5-10.1); Chloride 106 mmol/L (98-107); Estimated GFR 68.77 (mL/min/1.73m2); Glucose 93 mg/dL (74-106); Magnesium 2.0 mg/dL (1.8-2.4); Potassium 4.5 mmol/L (3.5-5.1); Sodium 142 mmol/L (136-145); TSH (W/Ref FT4) 0.40 uIU/mL (0.36-3.74); Total Protein 5.8 g/dL (6.4-8.2)
== END 2025-02-04 21:05 | disposition home or self-care (01) ==
LOC: LBN 21:04
PROVIDERS: PCP Family Medicine; Visit Provider Nurse Practitioner Gerontology
DX: E03.9 Hypothyroidism, unspecified (principal); E87.8 Other disorders of electrolyte and fluid balance, not elsewhere classified
CPT/HCPCS: 80053; 83735; 84443; 85025

== ENCOUNTER 2025-03-18 16:59 | Outpatient (REF) | payer MEDICARE, SELFPAY ==
[2025-03-18 17:17] LABS: Abs Immature Grans 0.03 10^3/uL (0.0-0.06); HCT 34.9 % (36.0-46.0); HGB 11.0 g/dL (11.2-15.7); Immature Grans % 0.4 %; MCH 31.3 pg (27.0-33.0); MCHC 31.5 % (32.0-36.0); MCV 99 fL (80-95); MPV 10.0 fL (8.0-11.0); Platelet Count 271 10^3/uL (130-400); RBC 3.52 10^6/uL (3.93-5.22); RDW 14.0 % (11.7-14.6); RDW-SD 51.2 fL; WBC 7.78 10^3/uL (4.4-10.8)
== END 2025-03-18 17:00 | disposition home or self-care (01) ==
LOC: LBN 16:59
PROVIDERS: PCP Legal Medicine; Visit Provider Nurse Practitioner Gerontology
DX: D63.1 Anemia in chronic kidney disease (principal)
CPT/HCPCS: 85025

== ENCOUNTER 2025-04-22 16:00 | Outpatient (REF) | payer MEDICARE, SELFPAY ==
[2025-04-22 16:41] LABS: Abs Immature Grans 0.01 10^3/uL (0.0-0.06); HCT 31.7 % (36.0-46.0); HGB 10.1 g/dL (11.2-15.7); Immature Grans % 0.1 %; MCH 31.7 pg (27.0-33.0); MCHC 31.9 % (32.0-36.0); MCV 99 fL (80-95); MPV 10.4 fL (8.0-11.0); Platelet Count 254 10^3/uL (130-400); RBC 3.19 10^6/uL (3.93-5.22); RDW 13.2 % (11.7-14.6); RDW-SD 47.7 fL; WBC 6.78 10^3/uL (4.4-10.8)
== END 2025-04-22 16:01 | disposition home or self-care (01) ==
LOC: LBN 16:00
PROVIDERS: PCP Legal Medicine; Visit Provider Nurse Practitioner Gerontology
DX: E87.8 Other disorders of electrolyte and fluid balance, not elsewhere classified (principal); D63.1 Anemia in chronic kidney disease
CPT/HCPCS: 85025